=== PATIENT | male | born 1960 | race Caucasian/White ===

== ENCOUNTER 2016-07-07 10:16 | Inpatient (IN) | payer SELFPAY ==
[~2016-07-07] VITALS: Ht 177.8 cm; Wt 77.5 kg
[~2016-07-07 10:16] MED LIST: BUPR150T3 PO; KAPIDEX PO; SERT50 PO
[2016-07-07 10:18] VITALS: BP 104/61; PULSE 130; RESP 18; TEMP 98.9; O2SAT 88
--- NOTE | 2016-07-07 11:00 | PD ---
HPI Chief Complaint: Flank/Kidney Pain Time Seen by Provider: 11:00 Travel History International Travel<30 days: No Contact w/Intl Traveler<30days: No Traveled to known affect area: No History of Present Illness HPI 55-year-old male with history of hypertension presents to the ED for evaluation of one week history of bilateral flank pain, right greater than left. Worsening over the last 3 days, rated 10/10. No alleviating or exacerbating factors reported. Patient endorses nausea, vomiting, hematuria. He denies abdominal pain, dysuria. The patient had bilateral stents placed by Dr. Baron "around ." He saw his primary care provider this morning who referred him to the ED. PFSH Past Medical History Arthritis: No Asthma: No Autoimmune Disease: No Blood Disorders: No Anxiety: No Depression: No Heart Rhythm Problems: No Cancer: No Cardiovascular Problems: Yes High Cholesterol: No Chemotherapy: No Chest Pain: No Congestive Heart Failure: No COPD: No Cerebrovascular Accident: No Diabetes: No Diminished Hearing: No Diverticulitis: Yes Endocrine: No Gastrointestinal Disorders: Yes (DIVERTICULITIS) GERD: No Glaucoma: No Genitourinary: Yes (CURRENT COLOVESICLE FISTULA) Headaches: No Hepatitis: No Hiatal Hernia: No Hypertension: Yes Immune Disorder: No Kidney Stones: Yes Musculoskeletal: Yes Neurologic: No Psychiatric: Yes Reproductive: No Respiratory: Yes Myocardial Infarction: No Radiation Therapy: No Renal Failure: No Seizures: No Sickle Cell Disease: No Sleep Apnea: No Thyroid Disease: No Ulcer: No Past Surgical History Abdominal Surgery: Yes (HERNIA REPAIR, COLON RESECTION, ) AICD: No Cardiac Surgery: No Ear Surgery: No Endocrine Surgery: No Eye Surgery: No Genitourinary Surgery: Yes (PER PT "PART OF MY BLADDER WAS REMOVED") Gynecologic Surgery: No Oral Surgery: No Pacemaker: No Thoracic Surgery: No Other Surgery: Yes (SINUS SX) Social History Alcohol Use: Yes (2-3 drinks per day) Tobacco Use: Yes (1 2 ppd) Substance Use: No Allergies-Medications (Allergen,Severity, Reaction): Coded Allergies: Shellfish (Verified Allergy, Severe, HIVES, SWELLING, 07/07/16) Sulfa (Verified Allergy, Severe, HIVES, 07/07/16) Reported Meds & Prescriptions Reported Meds & Active Scripts Active Reported [Kapidex] 60 Mg PO DAILY Bupropion Hcl Xl (Bupropion HCl) 150 Mg Tab 150 Mg PO BID Zoloft (Sertraline HCl) 50 Mg Tab 150 Mg PO DAILY Review of Systems Except as stated in HPI: all other systems reviewed are Neg Physical Exam Narrative GENERAL: Well-nourished, well-developed white male in moderate distress. SKIN: Warm and diaphoretic HEAD: Normocephalic. EYES: No scleral icterus. No injection or drainage. NECK: Supple, trachea midline. No JVD or lymphadenopathy. CARDIOVASCULAR: Regular rate and rhythm without murmurs, gallops, or rubs. 2+ DP and radial pulses bilaterally. RESPIRATORY: Breath sounds clear and equal bilaterally. No accessory muscle use. GASTROINTESTINAL: Abdomen soft, non-tender, nondistended. Active bowel sounds. MUSCULOSKELETAL: No cyanosis, or edema. Patient is ambulatory, moves extremities spontaneously. BACK: Nontender without obvious deformity.++ Bilateral flank and CVA tenderness , right>>left. Data Data Last Documented VS Vital Signs Date Time Temp Pulse Resp B/P Pulse Ox O2 Delivery O2 Flow Rate FiO2 07/07/16 10:18 98.9 130 18 104/61 88 Orders Complete Blood Count With Diff (07/07/16 10:24) Comprehensive Metabolic Panel (07/07/16 10:24) Urinalysis - C+S If Indicated (07/07/16 10:24) Lipase (07/07/16 10:24) Ct Abd/Pel W/O Iv Contrast (07/07/16 11:10) Iv Access Insert/Monitor (07/07/16 11:10) Ondansetron Inj (Zofran Inj) (07/07/16 11:15) Sodium Chloride 0.9% Flush (Ns Flush) (07/07/16 11:15) Sodium Chlor 0.9% 1000 Ml Inj (Ns 1000 M (07/07/16 11:10) Lactic Acid (07/07/16 11:10) Morphine Inj (Morphine Inj) (07/07/16 11:15) Act Partial Throm Time (Ptt) (07/07/16 11:14) Prothrombin Time / Inr (Pt) (07/07/16 11:14) Labs Laboratory Tests Test 07/07/16 10:50 White Blood Count 13.5 TH/MM3 Red Blood Count 4.05 MIL/MM3 Hemoglobin 13.2 GM/DL Hematocrit 38.9 % Mean Corpuscular Volume 95.9 FL Mean Corpuscular Hemoglobin 32.7 PG Mean Corpuscular Hemoglobin 34.1 % Concent Red Cell Distribution Width 13.3 % Platelet Count 244 TH/MM3 Mean Platelet Volume 8.4 FL Neutrophils (%) (Auto) 93.7 % Lymphocytes (%) (Auto) 3.3 % Monocytes (%) (Auto) 2.4 % Eosinophils (%) (Auto) 0.2 % Basophils (%) (Auto) 0.4 % Neutrophils # (Auto) 12.6 TH/MM3 Lymphocytes # (Auto) 0.4 TH/MM3 Monocytes # (Auto) 0.3 TH/MM3 Eosinophils # (Auto) 0.0 TH/MM3 Basophils # (Auto) 0.1 TH/MM3 CBC Comment DIFF FINAL Differential Comment Sodium Level 136 MEQ/L Potassium Level 3.3 MEQ/L Chloride Level 101 MEQ/L Carbon Dioxide Level 24.2 MEQ/L Anion Gap 11 MEQ/L Blood Urea Nitrogen 20 MG/DL Creatinine 1.63 MG/DL Estimat Glomerular Filtration 44 ML/MIN Rate Random Glucose 117 MG/DL Calcium Level 8.8 MG/DL Total Bilirubin 0.5 MG/DL Aspartate Amino Transf 18 U/L (AST/SGOT) Alanine Aminotransferase 18 U/L (ALT/SGPT) Alkaline Phosphatase 71 U/L Total Protein 7.5 GM/DL Albumin 2.9 GM/DL Lipase 73 U/L [facility] Medical Decision Making Medical Screen Exam Complete: Yes Emergency Medical Condition: Yes Differential Diagnosis Nephroureterolithiasis versus hydronephrosis versus urosepsis versus JASON versus anemia versus other Narrative Course 55-year-old male with history of hypertension presents to the ED for evaluation of one week history of 10/10 bilateral flank pain, right greater than left. Worsening over the last 3 days. No alleviating or exacerbating factors reported. Patient endorses N/V, hematuria. Denies abdominal pain, dysuria. Bilateral stents inserted 05/03, by Dr. Baron. Saw PCP this morning, referred here. Vitals reviewed. Patient is tachycardic on presentation. Physical exam reveals a diaphoretic white male in moderate distress. Bilateral flank and CVA tenderness. Otherwise unremarkable. IV was established. Lab work, CT, morphine and Zofran ordered. The patient was transferred to the medical pod under the care of Dr. Quarles. Please see oncoming provider's notes for disposition. Sepsis Criteria SIRS Criteria (2 or more): Heart rate over 90, WBC > 77870, < 4000 or > 10% bands Sepsis Criteria (SIRS+source): Infect source susp/known Severe Sepsis (+one): Acute Oliguria/Renal Failure Sandy Bowers Jul 07, 2016 11:00
[2016-07-07] MEDS ORDERED: SODIUM CHLOR 0.9% 1000 ML INJ 1,000 ML IV ONE ×2 (11:10→12:45)
[2016-07-07 11:11] LABS: AUTOMATED NEUTROPHIL # 12.6 TH/MM3 (1.8-7.7); BASOPHIL # 0.1 TH/MM3 (0-0.2); BASOPHIL % 0.4 % (0.0-2.0); EOSINOPHIL % 0.2 % (0.0-4.0); HEMATOCRIT 38.9 % (39.0-51.0); HEMO FLAGS DIFF FINAL; LYMPH % 3.3 % (9.0-44.0); LYMPHOCYTE # 0.4 TH/MM3 (1.0-4.8); MEAN CELL VOLUME 95.9 FL (80.0-100.0); MEAN CORPUSCULAR HEMOGLOBIN 32.7 PG (27.0-34.0); MEAN CORPUSCULAR HGB CONC 34.1 % (32.0-36.0); MONO % 2.4 % (0.0-8.0); NEUT % 93.7 % (16.0-70.0); PLATELET COUNT 244 TH/MM3 (150-450); RED BLOOD COUNT 4.05 MIL/MM3 (4.50-5.90); RED CELL DISTRIBUTION WIDTH 13.3 % (11.6-17.2); WHITE BLOOD COUNT 13.5 TH/MM3 (4.0-11.0)
[2016-07-07] MEDS ORDERED: SODIUM CHLORIDE 0.9% FLUSH 5 ML FLUSH IVF PRN (11:15)
[2016-07-07] MEDS ORDERED: ONDANSETRON HCL 4 MG/2 ML VIAL IVP ONE (11:15)
[2016-07-07] MEDS ORDERED: MORPHINE SULFATE 4 MG/ML INJ IV PUSH ONE ×2 (11:15→13:45)
[2016-07-07 11:33] LABS: ALT (GPT) 18 U/L (12-78); ANION GAP 11 MEQ/L (5-15); AST (GOT) 18 U/L (15-37); BICARBONATE 24.2 MEQ/L (21.0-32.0); BLOOD UREA NITROGEN 20 MG/DL (7-18); CHLORIDE 101 MEQ/L (98-107); GLOMERULAR FILTRATION RATE 44 ML/MIN (>89); POTASSIUM 3.3 MEQ/L (3.5-5.1); SODIUM (NA) 136 MEQ/L (136-145)
[2016-07-07 11:35] LABS: ALKALINE PHOSPHATASE 71 U/L (45-117); TOTAL BILIRUBIN ADULT 0.5 MG/DL (0.2-1.0)
--- NOTE | 2016-07-07 12:02 | RADRPT ---
EXAM DATE/TIME: 07/07/2016 11:31 [facility] COMPARISON: No previous studies available for comparison. INDICATIONS: Bilateral flank pain with history of bilateral ureteral stents ORAL CONTRAST: No oral contrast ingested. RADIATION DOSE: 12.13 CTDIvol (mGy) MEDICAL HISTORY: Hypertension. Renal calculi. Diverticulitis. SURGICAL HISTORY: Colon resection. Hernia repair, ureteral stents ENCOUNTER: Initial ACUITY: 3 days PAIN SCALE: 5/10 LOCATION: Bilateral flank TECHNIQUE: Volumetric scanning of the abdomen and pelvis was performed. Using automated exposure control and ad justment of the mA and/or kV according to patient size, radiation dose was kept as low as reasonably achievable to obtain optimal diagnostic quality images. FINDINGS: Portion of the liver and spleen identified are free of focal defects. The pancreas is unremarkable. RIGHT KIDNEY: Multiple small stones are seen in the right kidney, largest measuring 5 mm. There is s stent along t he expected course of the right ureter. Stent is in good position. LEFT KIDNEY: Stent is seen in the left kidney. There are residual stones in the lower pole of the left kidney, la rgest measuring 1.2 cm. Stent is seen along expected course of left ureter. BLADDER: Unremarkable. 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 Moderate vascular calcifications are seen in the descending aorta without aneurysmal dilatation. CONCLUSION: 1. Renal stones and stents in good position as described above. Yosvany Fuentes MD FACR on July 07, 2016 at 11:45 Board Certified Radiologist. This report was verified electronically.
[2016-07-07 12:03] LABS: APTT (PATIENT) 36.8 SEC (24.3-30.1); INTERNATIONAL NORMALIZED RATIO 1.1 RATIO; PROTHROMBIN TIME - PATIENT 11.7 SEC (9.8-11.6)
[2016-07-07 12:35] VITALS: BP 93/61; PULSE 103; RESP 20; O2SAT 92
--- NOTE | 2016-07-07 12:50 | PD ---
Physical Exam Date Seen by Provider: Jul 07, 2016 Time Seen by Provider: 12:00 Narrative Patient was seen and evaluated in triage. Labs ordered including CBC, CMP, urinalysis, lactic acid, and CT of the abdomen. Patient has history of recurrent kidney stones with stents placed bilaterally. Patient is noted to be hypotensive and tachycardic with complaints of generalized malaise and body aches. Patient is also moderately hypoxic in the low 90s. Patient is a smoker. He states fever in the last couple days since Sunday with a high 102.5. Patient denies nausea, vomiting, or changes in his bowels or bladder. Patient is allergic to shellfish and sulfa. Data Data Last Documented VS Vital Signs Date Time Temp Pulse Resp B/P Pulse Ox O2 Delivery O2 Flow Rate FiO2 07/07/16 12:35 103 20 93/61 92 Nasal Cannula 2 07/07/16 10:18 98.9 Orders Complete Blood Count With Diff (07/07/16 10:24) Comprehensive Metabolic Panel (07/07/16 10:24) Urinalysis - C+S If Indicated (07/07/16 10:24) Lipase (07/07/16 10:24) Ct Abd/Pel W/O Iv Contrast (07/07/16 11:10) Iv Access Insert/Monitor (07/07/16 11:10) Ondansetron Inj (Zofran Inj) (07/07/16 11:15) Sodium Chloride 0.9% Flush (Ns Flush) (07/07/16 11:15) Sodium Chlor 0.9% 1000 Ml Inj (Ns 1000 M (07/07/16 11:10) Lactic Acid (07/07/16 11:10) Morphine Inj (Morphine Inj) (07/07/16 11:15) Act Partial Throm Time (Ptt) (07/07/16 11:14) Prothrombin Time / Inr (Pt) (07/07/16 11:14) Cath For Specimen (07/07/16 11:56) Blood Culture (07/07/16 12:38) Influenzae A/B Antigen (07/07/16 12:38) Sodium Chlor 0.9% 1000 Ml Inj (Ns 1000 M (07/07/16 12:45) Chest, Single Ap (07/07/16 ) Urine Culture (07/07/16 12:30) Piperacil-Tazo 4.5 Gm Premix (Zosyn 4.5 (07/07/16 13:10) Vancomycin Inj (Vancomycin Inj) (07/07/16 13:10) Labs Laboratory Tests Test 07/07/16 07/07/16 07/07/16 10:50 11:00 12:30 White Blood Count 13.5 TH/MM3 Red Blood Count 4.05 MIL/MM3 Hemoglobin 13.2 GM/DL Hematocrit 38.9 % Mean Corpuscular Volume 95.9 FL Mean Corpuscular Hemoglobin 32.7 PG Mean Corpuscular Hemoglobin 34.1 % Concent Red Cell Distribution Width 13.3 % Platelet Count 244 TH/MM3 Mean Platelet Volume 8.4 FL Neutrophils (%) (Auto) 93.7 % Lymphocytes (%) (Auto) 3.3 % Monocytes (%) (Auto) 2.4 % Eosinophils (%) (Auto) 0.2 % Basophils (%) (Auto) 0.4 % Neutrophils # (Auto) 12.6 TH/MM3 Lymphocytes # (Auto) 0.4 TH/MM3 Monocytes # (Auto) 0.3 TH/MM3 Eosinophils # (Auto) 0.0 TH/MM3 Basophils # (Auto) 0.1 TH/MM3 CBC Comment DIFF FINAL Differential Comment Sodium Level 136 MEQ/L Potassium Level 3.3 MEQ/L Chloride Level 101 MEQ/L Carbon Dioxide Level 24.2 MEQ/L Anion Gap 11 MEQ/L Blood Urea Nitrogen 20 MG/DL Creatinine 1.63 MG/DL Estimat Glomerular Filtration 44 ML/MIN Rate Random Glucose 117 MG/DL Calcium Level 8.8 MG/DL Total Bilirubin 0.5 MG/DL Aspartate Amino Transf 18 U/L (AST/SGOT) Alanine Aminotransferase 18 U/L (ALT/SGPT) Alkaline Phosphatase 71 U/L Total Protein 7.5 GM/DL Albumin 2.9 GM/DL Lipase 73 U/L Prothrombin Time 11.7 SEC Prothromb Time International 1.1 RATIO Ratio Activated Partial 36.8 SEC Thromboplast Time Lactic Acid Level 1.8 mmol/L Urine Color RED Urine Turbidity CLOUDY Urine pH 6.0 Urine Specific [place] 1.022 Urine Protein 300 mg/dL Urine Glucose (UA) TRACE mg/dL Urine Ketones NEG mg/dL Urine Occult Blood LARGE Urine Nitrite NEG Urine Bilirubin NEG Urine Urobilinogen 2.0 MG/DL Urine Leukocyte Esterase TRACE Urine RBC /hpf Urine WBC 25 /hpf Urine WBC Clumps OCC Urine Squamous Epithelial 2 /hpf Cells Urine Transitional Epithelial 1 /hpf Cells Urine Amorphous Sediment RARE Urine Bacteria MANY /hpf Urine Hyaline Casts 10 /lpf Urine Mucus MANY /lpf Microscopic Urinalysis Comment CULTURE INDICATED MDM Medical Record Reviewed: Yes Supervised Visit with ROSE MARIE: Yes Differential Diagnosis Urinary tract infection. Sepsis. Pneumonia. Influenza. Dehydration. Hypoxemia. Narrative Course Patient is evaluated by myself and Dr. Farrar. Labs show leukocytosis and probably urinary tract infection. CT scan shows both stents in good position without obvious acute hydronephrosis per radiologist. Additional labs ordered including influenza and chest x-ray, as well as blood cultures 2. BUN is 20, creatinine is 1.63. Lactic acid is 1.8. Potassium is low at 3.3. Call was placed to Dr. Baron, the Security Consultant, who placed the the urinary stents in April. Patient was discussed. Patient will be treated with Zosyn and vancomycin IV. Chest x-ray shows large upper lobe pneumonia. Duoneb and Solumedrol 125mg IV added. Sputum Culture. 1315 hrs. call was placed to the residence for admission. Diagnosis Primary Impression: Pneumonia Qualified Code: J18.1 - Pneumonia of left upper lobe due to infectious organism Additional Impressions: Urinary tract infection Qualified Code: T83.512A - Urinary tract infection associated with nephrostomy catheter, initial encounter Hypoxia Sepsis Qualified Code: A41.9 - Sepsis, due to unspecified organism Dehydration Admitting Information Admitting Physician Requests: Admit Condition: Stable Keshawn Kingston Jul 07, 2016 12:50
[2016-07-07 12:58] LABS: BACTERIA, URINE MANY /hpf; BLOOD, URINE LARGE (NEG); GLUCOSE,URINE TRACE mg/dL (NEG); HYALINE CAST, URINE 10 /lpf (RARE); KETONE, URINE NEG (NEG); MUCUS URINE MANY /lpf (OCC); NITRITE,URINE NEG (NEG); SQUAMOUS EPITHELIAL CELL URINE 2 /hpf (0-5); TRANSITIONAL EPI CELLS, URINE 1 /hpf
[2016-07-07 12:59] LABS: COMMENT (UR) CULTURE INDICATED; CULTURE IF INDICATED CULTURE INDICATED; URINE COLOR RED (YELLW/STRAW)
[2016-07-07] MEDS ORDERED: VANCOMYCIN INJ 1,000 MG in SODIUM CHLOR 0.9% 250 ML INJ 250 ML IV STA (13:10)
[2016-07-07] MEDS ORDERED: PIPERACIL-TAZO 4.5 GM PREMIX 100 ML IV STA (13:10)
--- NOTE | 2016-07-07 13:32 | RADRPT ---
EXAM DATE/TIME: 07/07/2016 12:49 [facility] COMPARISON: No previous studies available for comparison. INDICATIONS : Cough, nausea,vomiting, shortness of breath and body aches. MEDICAL HISTORY : None. SURGICAL HISTORY : None. ENCOUNTER: Initial ACUITY: 4 - 6 days PAIN SCORE: 10/10 LOCATION: Bilateral chest FINDINGS: Extensive air space disease is identified throughout the left upper lobe. Right lung is clear. Heart and mediastinal structures. CONCLUSION: Extensive airspace disease throughout the left upper lobe characteristic of pneumonitis. Vlad Arteaga MD on July 07, 2016 at 13:30 Board Certified Radiologist. This report was verified electronically.
--- NOTE | 2016-07-07 13:43 | PD ---
Data Data Last Documented VS Vital Signs Date Time Temp Pulse Resp B/P Pulse Ox O2 Delivery O2 Flow Rate FiO2 07/07/16 12:35 103 20 93/61 92 Nasal Cannula 2 07/07/16 10:18 98.9 Orders Complete Blood Count With Diff (07/07/16 10:24) Comprehensive Metabolic Panel (07/07/16 10:24) Urinalysis - C+S If Indicated (07/07/16 10:24) Lipase (07/07/16 10:24) Ct Abd/Pel W/O Iv Contrast (07/07/16 11:10) Iv Access Insert/Monitor (07/07/16 11:10) Ondansetron Inj (Zofran Inj) (07/07/16 11:15) Sodium Chloride 0.9% Flush (Ns Flush) (07/07/16 11:15) Sodium Chlor 0.9% 1000 Ml Inj (Ns 1000 M (07/07/16 11:10) Lactic Acid (07/07/16 11:10) Morphine Inj (Morphine Inj) (07/07/16 11:15) Act Partial Throm Time (Ptt) (07/07/16 11:14) Prothrombin Time / Inr (Pt) (07/07/16 11:14) Cath For Specimen (07/07/16 11:56) Blood Culture (07/07/16 12:38) Influenzae A/B Antigen (07/07/16 12:38) Sodium Chlor 0.9% 1000 Ml Inj (Ns 1000 M (07/07/16 12:45) Chest, Single Ap (07/07/16 ) Urine Culture (07/07/16 12:30) Piperacil-Tazo 4.5 Gm Premix (Zosyn 4.5 (07/07/16 13:10) Vancomycin Inj (Vancomycin Inj) (07/07/16 13:10) Methylprednisolone So Succ Inj (Solumedr (07/07/16 13:45) Albuterol-Ipratropium Neb (Duoneb Neb) (07/07/16 13:45) S[employer] Culture And Stain (07/07/16 13:35) Admit Order (Ed Use Only) (07/07/16 13:40) Labs Laboratory Tests Test 07/07/16 07/07/16 07/07/16 10:50 11:00 12:30 White Blood Count 13.5 TH/MM3 Red Blood Count 4.05 MIL/MM3 Hemoglobin 13.2 GM/DL Hematocrit 38.9 % Mean Corpuscular Volume 95.9 FL Mean Corpuscular Hemoglobin 32.7 PG Mean Corpuscular Hemoglobin 34.1 % Concent Red Cell Distribution Width 13.3 % Platelet Count 244 TH/MM3 Mean Platelet Volume 8.4 FL Neutrophils (%) (Auto) 93.7 % Lymphocytes (%) (Auto) 3.3 % Monocytes (%) (Auto) 2.4 % Eosinophils (%) (Auto) 0.2 % Basophils (%) (Auto) 0.4 % Neutrophils # (Auto) 12.6 TH/MM3 Lymphocytes # (Auto) 0.4 TH/MM3 Monocytes # (Auto) 0.3 TH/MM3 Eosinophils # (Auto) 0.0 TH/MM3 Basophils # (Auto) 0.1 TH/MM3 CBC Comment DIFF FINAL Differential Comment Sodium Level 136 MEQ/L Potassium Level 3.3 MEQ/L Chloride Level 101 MEQ/L Carbon Dioxide Level 24.2 MEQ/L Anion Gap 11 MEQ/L Blood Urea Nitrogen 20 MG/DL Creatinine 1.63 MG/DL Estimat Glomerular Filtration 44 ML/MIN Rate Random Glucose 117 MG/DL Calcium Level 8.8 MG/DL Total Bilirubin 0.5 MG/DL Aspartate Amino Transf 18 U/L (AST/SGOT) Alanine Aminotransferase 18 U/L (ALT/SGPT) Alkaline Phosphatase 71 U/L Total Protein 7.5 GM/DL Albumin 2.9 GM/DL Lipase 73 U/L Prothrombin Time 11.7 SEC Prothromb Time International 1.1 RATIO Ratio Activated Partial 36.8 SEC Thromboplast Time Lactic Acid Level 1.8 mmol/L Urine Color RED Urine Turbidity CLOUDY Urine pH 6.0 Urine Specific [place] 1.022 Urine Protein 300 mg/dL Urine Glucose (UA) TRACE mg/dL Urine Ketones NEG mg/dL Urine Occult Blood LARGE Urine Nitrite NEG Urine Bilirubin NEG Urine Urobilinogen 2.0 MG/DL Urine Leukocyte Esterase TRACE Urine RBC /hpf Urine WBC 25 /hpf Urine WBC Clumps OCC Urine Squamous Epithelial 2 /hpf Cells Urine Transitional Epithelial 1 /hpf Cells Urine Amorphous Sediment RARE Urine Bacteria MANY /hpf Urine Hyaline Casts 10 /lpf Urine Mucus MANY /lpf Microscopic Urinalysis Comment CULTURE INDICATED MDM Supervised Visit with ROSE MARIE: Yes Narrative Course I, Dr. Quarles, have reviewed the advance practice practioner's documentation and am in agreement, met with the patient face to face, made the diagnosis, and the medical decision making was done by me. *My assessment and Findings: 55-year-old male with history of ureterolithiasis with indwelling bilateral stents here with bilateral flank pain generalized weakness, malaise and subjective fevers and chills for the last 3 days. Patient is ill-appearing on exam, tachycardic and relatively hypotensive, but borderline O2 sats to the 90s. Breath sounds are decreased left to right. He has minimal flank tenderness to palpation bilaterally. Differential includes ureterolithiasis, obstructive uropathy, UTI, pneumonia, influenza, viral syndrome, dehydration, electrolyte abnormality, sepsis. Patient's laboratory workup notable for leukocytosis and questionable UTI. Patient has significant left-sided pneumonia. He was covered broadly with vancomycin, Zosyn. Will be admitted for further management of his sepsis. Diagnosis Primary Impression: Sepsis Qualified Code: A41.9 - Sepsis, due to unspecified organism Additional Impressions: Pneumonia Qualified Code: J18.1 - Pneumonia of left upper lobe due to infectious organism Urinary tract infection Qualified Code: T83.512A - Urinary tract infection associated with nephrostomy catheter, initial encounter Hypoxia Dehydration Admitting Information Admitting Physician Requests: Admit Condition: Stable Mariam Quarles MD Jul 07, 2016 13:43
[2016-07-07] MEDS ORDERED: methylPREDNISolone SOD SUCC 125 MG/2 ML VIAL IV PUSH ONE (13:45)
[2016-07-07] MEDS ORDERED: RESP: ALBUTEROL 2.5 MG/IPRATROPIUM 0.5 MG NEB (SCH) NEB ONE (13:45)
[2016-07-07 13:49] VITALS: BP 117/79; PULSE 106; RESP 18; O2SAT 93
[2016-07-07] MEDS ORDERED: HYDROmorphone HCL PF 1 MG/ML VIAL IV PUSH ONE (14:45)
--- NOTE | 2016-07-07 14:49 | HHI.HP ---
[facility] Service Family Medicine Primary Care Physician Abigail Chau MD Admission Diagnosis sepsis, left pneumonia Diagnoses: International Travel<30 Days: No Contact w/Intl Traveler<30days: No Known Affected Area: No History of Present Illness 55 year old male with h/o HTN, renal calculi, s/p bilateral ureteral stent placements presents to the ED due to bilateral flank pain for the past three days. Daughter states over the past few days patient has been having a lot of abdominal pain. Fever yesterday of 102 F taken orally, severe body aches since Sunday, intermittent chills with diaphoresis also since Sunday. Patient is complaining of very severe left sided flank pain. Patient states since having his ureteral stents placed this past April he has had issues urinary, he states he has severe dribbling, occasional gross hematuria, and dysuria. His daughter reports gross hematuria this morning. He states he has had a loss of appetite since Sunday. States one episode of vomiting, nonbloody nonbilious yesterday, no vomiting today. States he has had a cough beginning this past Sunday, cough has mostly been dry, denies any shortness of breath in the past 4 days. 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 Denies any recent travel. (Matias Lewis MD R1) Review of Systems Constitutional: COMPLAINS OF: Fever, Chills Eyes: DENIES: Blurred vision, Double Vision Respiratory: COMPLAINS OF: Cough, DENIES: Shortness of breath Cardiovascular: DENIES: Chest pain, Palpitations Gastrointestinal: COMPLAINS OF: Nausea, Vomiting, DENIES: Abdominal pain Genitourinary: COMPLAINS OF: Hematuria, Dysuria (Matias Lewis MD R1) Past Family Social History Past Medical History HTN Renal calculi Diverticulitis Ureterolithiasis Chronic sinusitis H/o MRSA in nares Past Surgical History Bilateral ureteral stent placement Colovesicular fistula requiring a diverting colostomy, partial colectomy and eventual reanastomosis in 2007 Partial bladder removal Hernia repair Multiple sinus operations Reported Medications Reported Meds & Active Scripts Active Reported [Kapidex] 60 Mg PO DAILY Bupropion Hcl Xl (Bupropion HCl) 150 Mg Tab 150 Mg PO BID Zoloft (Sertraline HCl) 50 Mg Tab 150 Mg PO DAILY (Matias Lewis MD R1) Allergies: Coded Allergies: Shellfish (Verified Allergy, Severe, HIVES, SWELLING, 07/07/16) Sulfa (Verified Allergy, Severe, HIVES, 07/07/16) Family History Father: unknown Mother: arthritis, alive, no cancer, 82yo Social History Tobacco: 2 PPD x 41 years Etoh: 2-3 drinks nightly, vodka and 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, has been drinking since 18yo Illicit drugs: denies Lives alone in [place] 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 Cool and dry. HEAD: Atraumatic. Normocephalic. No temporal or scalp tenderness. EYES: Pupils equal round and reactive. Extraocular motions intact. No scleral icterus. No injection or drainage. ENT: Nose without bleeding, purulent drainage or septal hematoma. Throat without erythema, tonsillar hypertrophy or exudate. Uvula midline. Airway patent. NECK: Trachea midline. No JVD or lymphadenopathy. Supple, nontender, no meningeal signs. CARDIOVASCULAR: Regular rate and rhythm without murmurs, gallops, or rubs. RESPIRATORY: Clear to auscultation. Breath sounds equal bilaterally. No wheezes , rales, or rhonchi. GASTROINTESTINAL: Abdomen soft, non-tender, nondistended. No hepato-splenomegaly , or palpable masses. No guarding. MUSCULOSKELETAL: Extremities without clubbing, cyanosis, or edema. No joint tenderness, effusion, or edema noted. No calf tenderness. Negative Homans sign bilaterally. NEUROLOGICAL: Awake and alert. Cranial nerves II through XII intact. Motor and sensory grossly within normal limits. Normal speech. Laboratory Laboratory Tests Test 07/07/16 07/07/16 07/07/16 10:50 11:00 12:30 White Blood Count 13.5 Red Blood Count 4.05 Hemoglobin 13.2 Hematocrit 38.9 Mean Corpuscular Volume 95.9 Mean Corpuscular Hemoglobin 32.7 Mean Corpuscular Hemoglobin 34.1 Concent Red Cell Distribution Width 13.3 Platelet Count 244 Mean Platelet Volume 8.4 Neutrophils (%) (Auto) 93.7 Lymphocytes (%) (Auto) 3.3 Monocytes (%) (Auto) 2.4 Eosinophils (%) (Auto) 0.2 Basophils (%) (Auto) 0.4 Neutrophils # (Auto) 12.6 Lymphocytes # (Auto) 0.4 Monocytes # (Auto) 0.3 Eosinophils # (Auto) 0.0 Basophils # (Auto) 0.1 CBC Comment DIFF FINAL Differential Comment Sodium Level 136 Potassium Level 3.3 Chloride Level 101 Carbon Dioxide Level 24.2 Anion Gap 11 Blood Urea Nitrogen 20 Creatinine 1.63 Estimat Glomerular Filtration 44 Rate Random Glucose 117 Calcium Level 8.8 Total Bilirubin 0.5 Aspartate Amino Transf 18 (AST/SGOT) Alanine Aminotransferase 18 (ALT/SGPT) Alkaline Phosphatase 71 Total Protein 7.5 Albumin 2.9 Lipase 73 Prothrombin Time 11.7 Prothromb Time International 1.1 Ratio Activated Partial 36.8 Thromboplast Time Lactic Acid Level 1.8 Urine Color RED Urine Turbidity CLOUDY Urine pH 6.0 Urine Specific [place] 1.022 Urine Protein 300 Urine Glucose (UA) TRACE Urine Ketones NEG Urine Occult Blood LARGE Urine Nitrite NEG Urine Bilirubin NEG Urine Urobilinogen 2.0 Urine Leukocyte Esterase TRACE Urine RBC Urine WBC 25 Urine WBC Clumps OCC Urine Squamous Epithelial 2 Cells Urine Transitional Epithelial 1 Cells Urine Amorphous Sediment RARE Urine Bacteria MANY Urine Hyaline Casts 10 Urine Mucus MANY Microscopic Urinalysis Comment CULTURE INDICATED Date/Time Procedure Status Source Growth 07/07/16 13:15 Influenza Types A,B Antigen (NIVIA) - Final Complete Nasal Washing NEGATIVE FOR FLU A AND B ANTIGEN.... 07/07/16 13:15 Aerobic Blood Culture Received Blood Peripheral Pending 07/07/16 13:15 Anaerobic Blood Culture Received Blood Peripheral Pending 07/07/16 12:30 Urine Culture Received Urine Clean Catch Pending (Matias Lewis MD R1) Result Diagram: 07/07/16 1050 07/07/16 1050 Imaging Last 48 hours Impressions Chest X-Ray 07/07/16 0000 Signed Impressions: Service Date/Time: Thursday, July 07, 2016 12:49 - CONCLUSION: Extensive airspace disease throughout the left upper lobe characteristic of pneumonitis. Vlad Arteaga MD (Matias Lewis MD R1) Assessment and Plan Assessment and Plan 55 year old male with h/o HTN, renal calculi, s/p bilateral ureteral stent placements presents to the ED due to bilateral flank pain for the past three days, reported episode of fever, chills, body aches, and cough. He will be admitted and managed for the following: Code Status Full code Discussed Condition With dw Dr. Adrianna Diallo (Matias Lewis MD R1) Problem List: (1) Pneumonia Status: Acute Plan: Afebrile in ED Lungs have diminished air movement throughout, not able to appreciate any rales or rhonchi CXR showing extensive airspace disease throughout the left upper lobe Chest CT obtained showing consolidative changes in the left upper lobe, suspicious adenopathy in the mediastinum Sputum mycobacterial culture pending Will need to obtain a bronchoscopy for further evaluation Will continue antibiotics with Vancomycin and Zosyn (2) Urinary tract infection Status: Acute Plan: UA with 25 WBCs and many bacteria, culture pending Antibiotics as above The patients pain at this time does not seem concerning for pyelonephritis as he reports his pain to be left lateral abdomen and left upper quadrant and he denies any new or changing urinary symptoms Will continue to monitor CBC and vitals (3) Alcohol abuse Status: Acute Plan: No si/sxs concerning for withdrawal at this time CIWA protocol MVs (4) Nutrition, metabolism, and development symptoms Status: Acute Plan: Fluids: NS at 125 mL/hr Electrolytes: K+ 3.3, repleted orally Nutrition: Regular diet DVT PPX: SCDs GI PPX: Protonix Pain control: [place], Morphine prn breakthrough pain (Matias Lewis MD R1) Physician Certification Order for Inpatient Services The services are ordered in accordance with Medicare regulations or non- Medicare payer requirements, as applicable. In the case of services not specified as inpatient-only, they are appropriately provided as inpatient services in accordance with the 2-midnight benchmark. days is the estimated time the patient will need to remain in the hospital, assuming treatment plan goals are met and no additional complications. ( Matias Lewis MD R1) 2 Midnight Certification Type: Admission for Inpatient Services Estimated LOS (days): 3 Post-Hospital Plan: Home (Armando Diallo MD) Problem Qualifiers (1) Pneumonia: Qualified Code: J18.1 - Pneumonia of left upper lobe due to infectious organism (2) Urinary tract infection: Qualified Code: T83.512A - Urinary tract infection associated with nephrostomy catheter, initial encounter Matias Lewis MD R1 Jul 07, 2016 14:49 Armando Diallo MD Jul 07, 2016 21:45
[2016-07-07] MEDS ORDERED: DEXI60CA PO (15:03)
[2016-07-07] MEDS ORDERED: AMLO10TA2 PO (15:03)
[2016-07-07] MEDS ORDERED: ATOR1TAB18 PO (15:03)
[2016-07-07] MEDS ORDERED: VENTAER INH (15:03)
[2016-07-07] MEDS ORDERED: HYDR-3288 PO (15:03)
[2016-07-07] MEDS ORDERED: LORazepam 2 MG TAB PO PRN (16:00)
[2016-07-07] MEDS ORDERED: RESP: ALBUTEROL 2.5 MG/IPRATROPIUM 0.5 MG NEB (PRN) NEB (16:00)
[2016-07-07] MEDS ORDERED: FLUMAZENIL 0.5 MG/5 ML VIAL IV PUSH PRN (16:00)
[2016-07-07] MEDS ORDERED: NALOXONE HCL 0.4 MG/ML AMP IV PRN ×2 (16:00)
[2016-07-07] MEDS ORDERED: LORazepam 2 MG/ML VIAL IV PUSH PRN ×4 (16:00)
[2016-07-07] MEDS ORDERED: NICOTINE 21 MG/24 HR PATCH TD SCH (16:15)
--- NOTE | 2016-07-07 16:26 | RADRPT ---
EXAM DATE/TIME: 07/07/2016 16:09 [facility] COMPARISON: CT ABDOMEN & PELVIS W/O CONTRAST, July 07, 2016, 11:31. CHEST SINGLE AP, July 07, 2016, 12:49. INDICATIONS : Shortness of breath; evaluate for pulmonary disease. RADIATION DOSE: 6.92 CTDIvol (mGy) MEDICAL HISTORY : Cardiovascular disease. Hypertension. SURGICAL HISTORY : None. ENCOUNTER: Initial ACUITY: 3 days PAIN SCALE: 0/10 LOCATION: Chest TECHNIQUE: Volumetric scanning of the chest was performed. Using automated exposure control and adjustment of the mA and/or kV according to patient size, radiation dose was kept as low as reasonab ly achievable to obtain optimal diagnostic quality images. FINDINGS: Consolidative changes are present in the left upper lobe with air bronchograms. The ri ght lung is clear. There is no axillary adenopathy. There is minimal nonspecific mediastinal adenop athy. The amount of adenopathy makes this suspicious for a neoplastic process, in spite of its appea brock. Moderate coronary artery calcifications are noted. A small subcutaneous nodule is seen over the anterior chest wall measuring 4 cm. This is well circum scribed and nonspecific. Portion of the liver and spleen identified are free of focal defects. Adrenal glands are unremarkabl e. CONCLUSION: 1. Consolidative changes in the left upper lobe. There is suspicious adenopathy in the mediastinum. This may be more than an inflammatory process. 2. Bronchoscopy may be the easiest way to make a diagnosis of a neoplastic process. Yosvany Fuentes MD FACR on July 07, 2016 at 16:17 Board Certified Radiologist. This report was verified electronically.
[2016-07-07] MEDS: MULTIVITAMINS/MINERALS THERAPEUTIC TAB PO SCH (16:40)
[2016-07-07] MEDS: LORazepam 1 MG TAB PO PRN (16:41)
[2016-07-07] MEDS: THIAMINE HCL 100 MG TAB PO SCH (16:41)
[2016-07-07] MEDS ORDERED: RESP: ALBUTEROL 2.5 MG/3 ML NEB (PRN) NEB (17:00)
[2016-07-07] MEDS ORDERED: POTASSIUM CHLORIDE 10 MEQ CONTROLLED RELEASE TAB PO ONE (17:30)
[2016-07-07] MEDS: SODIUM CHLOR 0.9% 1000 ML INJ 1,000 ML IV SCH (17:46)
[2016-07-07] MEDS: ACETAMINOPHEN/HYDROcodone 325 MG/10 MG TAB PO PRN (17:47)
[2016-07-07] MEDS: PANTOPRAZOLE SOD 40 MG DELAYED RELEASE TAB PO SCH (17:47)
[2016-07-07] MEDS: ONDANSETRON HCL 4 MG/2 ML VIAL IV PRN (17:48)
[2016-07-07] MEDS: NICOTINE 21 MG/24 HR PATCH TD SCH (18:00)
[2016-07-07] MEDS: MORPHINE SULFATE 4 MG/ML INJ IV PRN (19:04)
[2016-07-07 20:11] VITALS: BP 115/76; PULSE 97; RESP 16; O2SAT 98
--- NOTE | 2016-07-07 20:52 | HHI.FPPN ---
Subjective Remarks Attending note: Complex 55-year-old gentleman admitted with bilateral flank pain, recent history of a temperature 102, suprapubic pain, history in the past of recurrent urolithiasis. Patient related that in April he had bilateral ureteral stents placed by Dr. Zhang, his urologist for management of bilateral urolithiasis. Eventual plans are for lithotripsy if necessary. Patient has had intermittent flank pain since stent placement and 3 days ago began having gross hematuria with body aches. Believed he did have a fever, no appetite. Consulted with his primary physician Dr. Abigail Chau and was advised to come to the emergency room. Hence being in the emergency room additional studies have been notable for bilateral kidney stones multiple on the right, the largest being 0.5 cm, on the left ID 1.2 cm stone with smaller stones as well. CT of the chest for an abnormal chest x-ray shows a infiltrate/ consolidation with left adenopathy. Patient has had a cough bringing up yellowish sputum recently. Please refer to resident history and physical for complete discussion of the past medical history camera primary history, social history and review of systems. It is notable that in 2007 the patient had a colovesicular fistula which required a diverting colostomy, partial colectomy and eventual reanastomosis. Objective Vitals Vital Signs Date Time Temp Pulse Resp B/P Pulse Ox O2 Delivery O2 Flow Rate FiO2 07/07/16 20:11 97 16 115/76 98 Room Air 07/07/16 18:53 10 07/07/16 13:49 106 18 117/79 93 Nasal Cannula 2 07/07/16 12:35 103 20 93/61 92 Nasal Cannula 2 07/07/16 10:18 98.9 130 18 104/61 88 Result Diagram: 07/07/16 1050 07/07/16 1050 Objective Remarks Vital signs noted. Currently afebrile. Gen. appearance: Pleasant speaking middle-aged gentleman who makes good eye contact, normal mood. HEENT: Oropharynx no localized lesions. Lungs: Diminished sounds are appreciated bilaterally, fine faustino are evident on the left lung upper and lower. Cardiac: S1-S2, increased heart rate, irregularity noted in the rhythm. No S3 or murmurs. Abdomen: Appearance rotund, active bowel sounds, no tenderness is evident on general palpation, the patient does report flank pain bilaterally discomfort suprapubically. Allergies: Feet are warm and dry, intact pedal pulses. Refer to the resident's physical exam for complete discussion of details. A/P Assessment and Plan Clinical assessment: Patient seen and examined. Case reviewed and discussed with resident team. Agree with plan of care as discussed with me and documented in the resident note. Patient has a long-time history of urolithiasis with complications intermittent along the way. Most recently stents bilaterally were placed in April 2016 and the patient is followed by his urologist, Dr. Jn Zhang concern clinically regarding urinary tract infection associated with the stones. Abnormal lung studies with history that would be consistent with pneumonia, note was made of the radiologist's concern regarding the adenopathy. Really creatinine, GERD, leukocytosis noted. Remote history of MRSA in the sinuses Armando Diallo MD Jul 07, 2016 20:52
[2016-07-07] MEDS ORDERED: predniSONE 20 MG TAB PO SCH (21:00)
[2016-07-07] MEDS: REMOVE OLD NICODERM (NICOTINE) PATCH TD SCH (21:00)
[2016-07-07 21:30] VITALS: BP 114/69; PULSE 119; RESP 16; TEMP 101; O2SAT 92
[2016-07-07 21:45] VITALS: PULSE 120
--- NOTE | 2016-07-07 21:52 | HHI.FPPN ---
Subjective Remarks Attending note: Please refer to the note dictated 20:52 hours. This is a partial duplicate. Objective Vitals Vital Signs Date Time Temp Pulse Resp B/P Pulse Ox O2 Delivery O2 Flow Rate FiO2 07/07/16 20:11 97 16 115/76 98 Room Air 07/07/16 18:53 10 07/07/16 13:49 106 18 117/79 93 Nasal Cannula 2 07/07/16 12:35 103 20 93/61 92 Nasal Cannula 2 07/07/16 10:18 98.9 130 18 104/61 88 Result Diagram: 07/07/16 1050 07/07/16 1050 Objective Remarks Vital signs noted. Currently afebrile. Gen. appearance: Pleasant speaking middle-aged gentleman who makes good eye contact, normal mood. HEENT: Oropharynx no localized lesions. Lungs: Diminished sounds are appreciated bilaterally, fine rales are evident on the left lung upper and lower. Cardiac: S1-S2, increased heart rate, irregularity noted in the rhythm. No S3 or murmurs. Abdomen: Appearance rotund, active bowel sounds, no tenderness is evident on general palpation, the patient does report flank pain bilaterally discomfort suprapubically. Allergies: Feet are warm and dry, intact pedal pulses. Refer to the resident's physical exam for complete discussion of details. A/P Assessment and Plan Clinical assessment: Patient seen and examined. Case reviewed and discussed with resident team. Agree with plan of care as discussed with me and documented in the resident note. Patient has a long-time history of urolithiasis with complications intermittent along the way. Most recently stents bilaterally were placed in April 2016 and the patient is followed by his urologist, Dr. Jn Zhang concern clinically regarding urinary tract infection associated with the stones. Abnormal lung studies with history that would be consistent with pneumonia, note was made of the radiologist's concern regarding the adenopathy. Really creatinine, GERD, leukocytosis noted. Remote history of MRSA in the sinuses Armando Diallo MD Jul 07, 2016 21:52
[2016-07-07] MEDS: SODIUM CHLORIDE 0.9% FLUSH 5 ML FLUSH FLUSH SCH (22:03)
[2016-07-07] MEDS: PIPERACIL-TAZO 4.5 GM PREMIX 100 ML IV SCH (22:03)
[2016-07-07] MEDS: ATORVASTATIN 80 MG TAB PO SCH (22:03)
[2016-07-08] VITALS (14 sets, daily range): BP systolic 93–146; BP diastolic 57–74; PULSE 108–119; RESP 16–24; TEMP 97.3–102.2; O2SAT 87–98
[2016-07-08] MEDS: ACETAMINOPHEN/HYDROcodone 325 MG/10 MG TAB PO PRN ×2 (00:06→05:03)
[2016-07-08] MEDS: SODIUM CHLOR 0.9% 1000 ML INJ 1,000 ML IV SCH (00:12)
[2016-07-08] MEDS: ONDANSETRON HCL 4 MG/2 ML VIAL IV PRN (02:02)
[2016-07-08] MEDS: LORazepam 1 MG TAB PO PRN (02:02)
[2016-07-08] MEDS: MORPHINE SULFATE 4 MG/ML INJ IV PRN ×3 (02:03→12:30)
[2016-07-08] MEDS: PIPERACIL-TAZO 4.5 GM PREMIX 100 ML IV SCH ×3 (05:04→20:44)
[2016-07-08 07:21] LABS: AUTOMATED NEUTROPHIL # 13.5 TH/MM3 (1.8-7.7); BASOPHIL # 0.1 TH/MM3 (0-0.2); BASOPHIL % 0.4 % (0.0-2.0); HEMATOCRIT 37.1 % (39.0-51.0); HEMO FLAGS DIFF FINAL; LYMPHOCYTE # 0.3 TH/MM3 (1.0-4.8); MEAN CELL VOLUME 97.6 FL (80.0-100.0); MEAN CORPUSCULAR HEMOGLOBIN 32.9 PG (27.0-34.0); MEAN CORPUSCULAR HGB CONC 33.7 % (32.0-36.0); MONO % 3.8 % (0.0-8.0); NEUT % 93.8 % (16.0-70.0); PLATELET COUNT 261 TH/MM3 (150-450); RED CELL DISTRIBUTION WIDTH 13.8 % (11.6-17.2); WHITE BLOOD COUNT 14.4 TH/MM3 (4.0-11.0)
[2016-07-08 08:15] LABS: ALKALINE PHOSPHATASE 64 U/L (45-117); ALT (GPT) 22 U/L (12-78); ANION GAP 8 MEQ/L (5-15); AST (GOT) 24 U/L (15-37); BLOOD UREA NITROGEN 23 MG/DL (7-18); CHLORIDE 102 MEQ/L (98-107); GLOMERULAR FILTRATION RATE 57 ML/MIN (>89); POTASSIUM 3.7 MEQ/L (3.5-5.1); SODIUM (NA) 134 MEQ/L (136-145); TOTAL BILIRUBIN ADULT 0.3 MG/DL (0.2-1.0)
[2016-07-08] MEDS: PANTOPRAZOLE SOD 40 MG DELAYED RELEASE TAB PO SCH (08:23)
[2016-07-08] MEDS: THIAMINE HCL 100 MG TAB PO SCH (08:23)
[2016-07-08] MEDS: MULTIVITAMINS/MINERALS THERAPEUTIC TAB PO SCH (08:23)
[2016-07-08] MEDS: NICOTINE 21 MG/24 HR PATCH TD SCH (08:24)
[2016-07-08] MEDS: SODIUM CHLORIDE 0.9% FLUSH 5 ML FLUSH FLUSH SCH ×2 (08:26→20:44)
[2016-07-08] MEDS ORDERED: PNEUMOCOCCAL POLYVALENT INJ 25 MCG/0.5 ML SYR IM ONE (09:00)
--- NOTE | 2016-07-08 10:42 | HHI.FPPN ---
Subjective Remarks Primary team at bedside this morning ~10:15 when it was reported by nursing staff that the patient was starting to develop severe chills, shakes, and was developing shortness of breath. Staff reported that earlier this morning that the patient was doing well, eating breakfast and walking OOB. DignaT was called for the patient due to respiratory distress. Vitals at this time were noted to be BP 140/70, HR 154, visibly tachypneic, O2 sats at 78% and temperature of 102.8F. Patient was placed on a 100% nonrebreather mask and O2 sats were noted to be at 93%. Dr. Heck, critical care, was notified and came to bedside. Patient was noted to be disoriented to time. Blood gas was obtained showing pH 7.28 CO2 42 HCO3 19. Patient was then transferred to the [facility] under critical care medicine. (Matias Lewis MD R1) Objective Vitals Vital Signs Date Time Temp Pulse Resp B/P Pulse Ox O2 Delivery O2 Flow Rate FiO2 07/08/16 08:00 97.3 118 16 103/59 87 07/08/16 04:00 98.0 114 20 146/72 92 07/08/16 00:00 99.0 119 18 138/63 92 07/07/16 22:45 Nasal Cannula 2.00 07/07/16 21:45 120 07/07/16 21:30 101.0 119 16 114/69 92 07/07/16 20:11 97 16 115/76 98 Room Air 07/07/16 18:53 10 07/07/16 13:49 106 18 117/79 93 Nasal Cannula 2 07/07/16 12:35 103 20 93/61 92 Nasal Cannula 2 I/O 07/07/16 07/07/16 07/07/16 07/08/16 07/08/16 07/08/16 07:00 15:00 23:00 07:00 15:00 23:00 Intake Total 200 ml 600 ml Balance 200 ml 600 ml Intake Oral 200 ml 600 ml # Voids 1 5 (Matias Lewis MD R1) Result Diagram: 07/08/16 0640 07/08/16 0640 Imaging Last 48 hours Impressions Abdomen/Pelvis CT 07/07/16 1110 Signed Impressions: Service Date/Time: Thursday, July 07, 2016 11:31 - CONCLUSION: 1. Renal stones and stents in good position as described above. Yosvany Fuentes MD FACR Chest X-Ray 07/07/16 0000 Signed Impressions: Service Date/Time: Thursday, July 07, 2016 12:49 - CONCLUSION: Extensive airspace disease throughout the left upper lobe characteristic of pneumonitis. Vlad Arteaga MD Chest CT 07/07/16 0000 Signed Impressions: Service Date/Time: Thursday, July 07, 2016 16:09 - CONCLUSION: 1. Consolidative changes in the left upper lobe. There is suspicious adenopathy in the mediastinum. This may be more than an inflammatory process. 2. Bronchoscopy may be the easiest way to make a diagnosis of a neoplastic process. Yosvany Fuentes MD FACR Objective Remarks GENERAL: Visible distress due to difficulty breathing and severe chills SKIN: Cool and dry. HEAD: Atraumatic. Normocephalic. EYES: EOMI. No injection or drainage. NECK: Trachea midline. Airway patent. Supple, nontender, no meningeal signs. CARDIOVASCULAR: Tachycardic rate, regular rhythm, without murmur. RESPIRATORY: Prominent basilar crackles and crackles throughout left lung field and expiratory wheezes throughout. Increased work of breathing. GASTROINTESTINAL: Abdomen soft, non-tender, nondistended. MUSCULOSKELETAL: Extremities without edema. No calf tenderness. NEUROLOGICAL: Awake and alert. Speech is intact but somewhat mumbled. Cranial nerves grossly intact. (Matias Lewis MD R1) A/P Assessment and Plan 55 year old male with h/o HTN, renal calculi, s/p bilateral ureteral stent placements presented due to bilateral flank pain more significant on the left x 3 days, one reported episode of fever, chills, body aches, and primarily dry cough. Admitted and managed for the following: (Matias Lewis MD R1) Assessment and Plan Attending note: Patient was seen with the resident team as his acute clinical worsening was evolving. Concerns regarding sepsis and fulminant pneumonia. Daughter arrived and was counseled as well as questions answered from the daughter. Patient seen and examined. Case reviewed and discussed with resident team. Agree with plan of care as discussed with me and documented in the resident note. Intensivists consulted, transferred to the [facility]. (Armando Diallo MD) Problem List: (1) Pneumonia Status: Acute Plan: - Febrile up to 102.8 this morning during [facility] - Leukocytosis worsened to 14.4 today - Initial CXR in ED showing extensive airspace disease throughout the left upper lobe - Chest CT from 07/07 showing consolidative changes in the left upper lobe, suspicious adenopathy in the mediastinum - Repeat CXR today 07/08 showing severe diffuse left lung airspace consolidation , increased from yesterday's exam. New mild consolidation versus atelectasis in the right mid lung zone. - Patient was initially placed on 100% oxygen via non-rebreather and transferred to the [facility] under critical care - Patient intubated and on mechanical ventilation given respiratory acidosis and concern for further decompensation - Critical care medicine consulted, treating for necrotizing pneumonia - Infectious disease consulted - Continue Zosyn, antipseudomonal dose - Continue Vancomycin - Started Azithromycin - Urine legionella and pneumococcal antigens - Sputum mycobacterial culture pending (2) Urinary tract infection Status: Acute Plan: UA with 25 WBCs and many bacteria, culture pending Antibiotics as above Urology consulted given patient with significant history of bilateral renal calculi and bilateral ureteral stent placements could be acting as a nidus for infections, possibly contributing to sepsis (3) Sepsis Status: Acute Plan: Meets sepsis criteria Antibiotics and plan as above (4) Nutrition, metabolism, and development symptoms Status: Acute Plan: Fluids: Discontinued Electrolytes: Na 134, otherwise WNLs Nutrition: NPO, on mech vent DVT PPX: SCDs GI PPX: Protonix sdw Luigi Rodriguez, and Adrianna (Matias Lewis MD R1) Problem Qualifiers (1) Pneumonia: Qualified Code: J18.1 - Pneumonia of left upper lobe due to infectious organism (2) Urinary tract infection: Qualified Code: T83.512A - Urinary tract infection associated with nephrostomy catheter, initial encounter Matias Lewis MD R1 Jul 08, 2016 10:42 Armando Diallo MD Jul 08, 2016 12:16
[2016-07-08] MEDS ORDERED: PROPOFOL 500 MG/50 ML INJ 50 ML ONE (10:47)
[2016-07-08] MEDS ORDERED: ETOMIDATE 20 MG/10 ML VIAL ONE (10:47)
[2016-07-08 10:52] LABS: BLOOD GAS BASE EXCESS -6.5 mmol/L (-2-2); BLOOD GAS CARBOXYHEMOGLOBIN 0.6 % (0-4); BLOOD GAS HCO3 19 mmol/L (22-26); BLOOD GAS METHEMOGLOBIN 0.9 % (0-2); BLOOD GAS O2 HGB SATURATION 86 % (90-100); BLOOD GAS OXYGEN CONTENT 17.1 Vol % (12.0-20.0); BLOOD GAS PCO2 42 mmHg (38-42); BLOOD GAS PO2 61 mmHg (61-120); BLOOD GAS TOTAL HGB 14.2 G/DL (12.0-16.0); TEMP CORR TO 98.6
[2016-07-08 10:53] LABS: CRITICAL VALUE YES; OXYGEN DEVICE NONREBREATHER
[2016-07-08 10:54] LABS: FIO2 100 %; LITER FLOW 15 L/M
[2016-07-08 10:55] LABS: DRAW SITE RT RADIAL; NUMBER OF ARTERIAL PUNCTURES 1; STAT YES; ULNAR PULSE PRESENT
[2016-07-08] MEDS ORDERED: PROPOFOL 1000 MG/100 ML INJ 100 ML ONE (11:09)
[2016-07-08] MEDS: PANTOPRAZOLE SODIUM 40 MG VIAL IV PUSH SCH (11:15)
[2016-07-08] MEDS ORDERED: DEXTROSE 50% IN WATER 50 ML VIAL(D50) IV PUSH PRN (11:15)
[2016-07-08] MEDS ORDERED: INSULIN NovoLIN REGULAR SUPPLEMENTAL SCALE SQ SCH (11:15)
[2016-07-08] MEDS ORDERED: BUMETANIDE INJ 1 MG/4 ML VIAL IV PUSH ONE (11:15)
[2016-07-08] MEDS ORDERED: GLUCAGON 1 MG/ML VIAL OTHER PRN (11:15)
[2016-07-08 11:53] LABS: BLOOD GAS BASE EXCESS -3.9 mmol/L (-2-2); BLOOD GAS CARBOXYHEMOGLOBIN 0.8 % (0-4); BLOOD GAS HCO3 23 mmol/L (22-26); BLOOD GAS METHEMOGLOBIN 1.5 % (0-2); BLOOD GAS O2 HGB SATURATION 94 % (90-100); BLOOD GAS PCO2 56 mmHg (38-42); BLOOD GAS PO2 105 mmHg (61-120); BLOOD GAS TOTAL HGB 12.8 G/DL (12.0-16.0); TEMP CORR TO 98.6
[2016-07-08 11:54] LABS: CRITICAL VALUE YES; DRAW SITE RT RADIAL; FIO2 100 %; NUMBER OF ARTERIAL PUNCTURES 1; OXYGEN DEVICE VENTILATOR; STAT NO; ULNAR PULSE PRESENT
--- NOTE | 2016-07-08 11:58 | PD.ID.CON ---
History of Present Illness Service Infectious disease Consult Requested By Dr. Choi Reason for Consult Evaluation and management of sepsis, healthcare associated pneumonia possible UTI in a patient with renal stents. Primary Care Physician Abigail Chau MD Diagnoses: History of Present Illness Mr. Ambrocio is a 55-year-old male with past medical history significant for renal calculi status post bilateral ureteral stent placements as well as hypertension who presented to the emergency department to bilateral flank pain for the past 3 days. Daughter states over the last few days patient was having a lot of abdominal pain as well as fever up to 102 associated with severe body aches. He also had intermittent chills with diaphoresis prior to admission. Patient reportedly was complaining of very severe left-sided flank pain. Reportedly his ureteral stents were placed in April 2016 as he had bilateral flank pain associated with dribbling as well as gross hematuria and dysuria. His daughter reports just prior to admission he had gross hematuria as well. Patient had loss of appetite, one episode of vomiting, nonbloody nonbilious prior to admission. Patient also reported cough is mostly dry but denied any shortness of breath prior to admission. Patient had a CT chest abdomen pelvis on admission. CT abdomen pelvis was reported as renal stones some of them fairly large in size but stents in good position. A CT chest showed on admission left upper lobe pneumonia repeat chest x-ray showed multilobar pneumonia. Patient met criteria for severe sepsis on admission due to elevated white count , tachycardia and source being pneumonia as well as urinary tract infection as well as acute renal failure. Patient was admitted under resident service and was on Zosyn IV and Vanco IV. Patient was also found to have elevated Cr and was placed on 125 cc/hr fluids. This a.m. while primary team was at the bedside nursing staff reported that patient was having severe chills, shakes and developing shortness of breath. [facility] was called for the patient due to respiratory distress. His vitals at this time of this change in clinical condition was blood pressure 1 40 x 70, heart rate 154, visibly tachypneic and using accessory muscles for respiration, O2 sats at 78% and a temperature of 102.8 Fahrenheit. Patient was placed on 100% nonrebreather and critical care was consulted patient's blood gas at that time was 7.28 pH, CO2 42, bicarbonate of 19. Remediation Technician evaluated the patient and repeat chest x-ray showed bilateral infiltrates and due to ongoing respiratory distress and altered mental status patient was emergently intubated in the ICU. Infectious disease is consulted for evaluation and management of sepsis, healthcare associated pneumonia, possible UTI in a patient with renal stents. At the time of my evaluation patient is in the ICU currently not on any pressors now is intubated and on sedation. Urine output is good. Other vitals are beginning to stabilize. Review of Systems ROS Limitations: Intubated Past Family Social History Allergies: Coded Allergies: Shellfish (Verified Allergy, Severe, HIVES, SWELLING, 07/07/16) Sulfa (Verified Allergy, Severe, HIVES, 07/07/16) Past Medical History HTN Renal calculi Diverticulitis Ureterolithiasis Chronic sinusitis H/o MRSA in nares Past Surgical History Bilateral ureteral stent placement Colovesicular fistula requiring a diverting colostomy, partial colectomy and eventual reanastomosis in 2007 Partial bladder removal Hernia repair Multiple sinus operations Reported Medications Reported Meds & Active Scripts Active Reported Amlodipine (Amlodipine Besylate) 10 Mg Tab 10 Mg PO DAILY Dexilant (Dexlansoprazole) 60 Mg Cap 60 Mg PO DAILY Atorvastatin (Atorvastatin Calcium) 80 Mg Tab 80 Mg PO HS [place] (Hydrocodone-Acetaminophen) 7.5-325 mg Tab 1-2 Tab PO Q6H PRN Ventolin Hfa 18 GM Inh (Albuterol Sulfate) 90 Mcg/Act Aer 1-2 Puff INH Q4-6H PRN Active Ordered Medications Current Medications Medications (Trade) Dose Ordered Sig/Veronica Route Start Time Stop Time Status Last Admin (NS Flush) 2 ml UNSCH PRN IVF 07/07/16 11:15 (Tylenol) 650 mg Q4H PRN PO 07/07/16 17:00 (Zofran Inj) 4 mg Q6H PRN IV 07/07/16 16:00 07/08/16 02:02 (NS Flush) 2 ml UNSCH PRN FLUSH 07/07/16 16:00 (NS Flush) 2 ml BID FLUSH 07/07/16 21:00 07/08/16 08:26 (Narcan Inj) 0.4 mg UNSCH PRN IV 07/07/16 16:00 (Vitamin B1) 100 mg DAILY PO 07/07/16 17:00 07/08/16 08:23 (Theragran M Tab) 1 tab DAILY PO 07/07/16 17:00 07/12/16 16:59 07/08/16 08:23 (Protonix) 40 mg DAILY PO 07/07/16 17:30 07/08/16 08:23 ([place] 5-325 Mg) 1 tab Q4H PRN PO 07/07/16 17:00 ([place] 10-325 Mg) 1 tab Q4H PRN PO 07/07/16 17:00 07/08/16 05:03 Morphine Sulfate 4 mg 4 mg Q4HR PRN IV 07/07/16 16:00 07/08/16 06:57 Vancomycin HCl 1000 mg/Sodium Chloride 250 ml @ 250 mls/hr Q24H IV 07/08/16 15:00 (Zosyn 4.5 Gm Premix) 100 ml @ 200 mls/hr Q8H IV 07/07/16 22:00 07/08/16 05:04 (Lipitor) 80 mg HS PO 07/07/16 21:00 07/07/16 22:03 (Habitrol 21 Mg Patch.24 Hr) 1 patch DAILY TD 07/07/16 18:00 07/08/16 08:24 Miscellaneous Information 1 1 HS TD 07/07/16 21:00 07/07/16 21:00 Azithromycin 500 mg/Sodium Chloride 250 ml @ 250 mls/hr Q24H IV 07/08/16 12:00 (Diprivan 1000 Mg/100ml Inj) 100 ml @ 0 mls/hr TITRATE IV 07/08/16 11:15 (Protonix Inj) 40 mg DAILY IV PUSH 07/08/16 11:15 (D50w (Vial) Inj) 25 ml UNSCH PRN IV PUSH 07/08/16 11:15 (Glucagon Inj) 1 mg UNSCH PRN OTHER 07/08/16 11:15 (NovoLIN R SUPPLEMENTAL SCALE) 1 Q6HR SQ 07/08/16 12:00 Family History Father: unknown Mother: arthritis, alive, no cancer, 82yo Social History Tobacco: 2 PPD x 41 years Etoh: 2-3 drinks nightly, vodka and 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, has been drinking since 18yo Illicit drugs: denies. 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 Denies any recent travel. 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 Physical Exam Vital Signs Vital Signs Date Time Temp Pulse Resp B/P Pulse Ox O2 Delivery O2 Flow Rate FiO2 07/08/16 11:00 93 100 07/08/16 10:41 92 15.00 100 07/08/16 10:25 92 Non-Rebreather 100 07/08/16 08:00 110 07/08/16 08:00 96 Nasal Cannula 2.00 07/08/16 08:00 97.3 118 16 103/59 87 07/08/16 04:00 98.0 114 20 146/72 92 07/08/16 00:00 99.0 119 18 138/63 92 07/07/16 22:45 Nasal Cannula 2.00 07/07/16 21:45 120 07/07/16 21:30 101.0 119 16 114/69 92 07/07/16 20:11 97 16 115/76 98 Room Air 07/07/16 18:53 10 07/07/16 13:49 106 18 117/79 93 Nasal Cannula 2 07/07/16 12:35 103 20 93/61 92 Nasal Cannula 2 Physical Exam GENERAL: Obese, well-developed patient, in no apparent distress. SKIN: No rashes. Cool and dry. HEAD: Atraumatic. Normocephalic. No temporal or scalp tenderness. EYES: Pupils equal round and reactive. Extraocular motions intact. No scleral icterus. No injection or drainage. ENT: Intubated. NECK: Trachea midline. Supple, nontender, no meningeal signs. CARDIOVASCULAR: Heart sounds audible. No murmur appreciated. RESPIRATORY: Breath sounds diminished bilaterally occasional palpitations. GASTROINTESTINAL: Abdomen soft, non-tender, nondistended. Obese. MUSCULOSKELETAL: Extremities without clubbing, cyanosis, or edema. No joint tenderness, effusion, or edema noted. No calf tenderness. Negative Homans sign bilaterally. NEUROLOGICAL: Sedated. Psych could not be assessed IV line sites with no evidence of infection. Laboratory Laboratory Tests Test 07/07/16 07/07/16 07/08/16 07/08/16 12:30 21:45 06:40 10:13 Urine Color RED Urine Turbidity CLOUDY Urine pH 6.0 Urine Specific [place] 1.022 Urine Protein 300 Urine Glucose (UA) TRACE Urine Ketones NEG Urine Occult Blood LARGE Urine Nitrite NEG Urine Bilirubin NEG Urine Urobilinogen 2.0 Urine Leukocyte Esterase TRACE Urine RBC Urine WBC 25 Urine WBC Clumps OCC Urine Squamous Epithelial 2 Cells Urine Transitional Epithelial 1 Cells Urine Amorphous Sediment RARE Urine Bacteria MANY Urine Hyaline Casts 10 Urine Mucus MANY Microscopic Urinalysis Comment CULTURE INDICATED Lactic Acid Level 1.4 1.0 White Blood Count 14.4 Red Blood Count 3.80 Hemoglobin 12.5 Hematocrit 37.1 Mean Corpuscular Volume 97.6 Mean Corpuscular Hemoglobin 32.9 Mean Corpuscular Hemoglobin 33.7 Concent Red Cell Distribution Width 13.8 Platelet Count 261 Mean Platelet Volume 8.2 Neutrophils (%) (Auto) 93.8 Lymphocytes (%) (Auto) 2.0 Monocytes (%) (Auto) 3.8 Eosinophils (%) (Auto) 0.0 Basophils (%) (Auto) 0.4 Neutrophils # (Auto) 13.5 Lymphocytes # (Auto) 0.3 Monocytes # (Auto) 0.5 Eosinophils # (Auto) 0.0 Basophils # (Auto) 0.1 CBC Comment DIFF FINAL Differential Comment Sodium Level 134 Potassium Level 3.7 Chloride Level 102 Carbon Dioxide Level 24.0 Anion Gap 8 Blood Urea Nitrogen 23 Creatinine 1.30 Estimat Glomerular Filtration 57 Rate Random Glucose 123 Calcium Level 7.9 Total Bilirubin 0.3 Aspartate Amino Transf 24 (AST/SGOT) Alanine Aminotransferase 22 (ALT/SGPT) Alkaline Phosphatase 64 Total Protein 7.2 Albumin 2.5 Blood Gas Puncture Site RT RADIAL Blood Gas Patient Temperature 98.6 Blood Gas HCO3 19 Blood Gas Base Excess -6.5 Blood Gas Oxygen Saturation 86 Arterial Blood pH 7.28 Arterial Blood Partial 42 Pressure CO2 Arterial Blood Partial 61 Pressure O2 Arterial Blood Oxygen Content 17.1 Arterial Blood 0.6 Carboxyhemoglobin Arterial Blood Methemoglobin 0.9 Blood Gas Hemoglobin 14.2 Oxygen Delivery Device NONREBREATHER Blood Gas Liter Flow 15 Blood Gas Inspired Oxygen 100 Test 07/08/16 11:45 Blood Gas Puncture Site RT RADIAL Blood Gas Patient Temperature 98.6 Blood Gas HCO3 23 Blood Gas Base Excess -3.9 Blood Gas Oxygen Saturation 94 Arterial Blood pH 7.23 Arterial Blood Partial 56 Pressure CO2 Arterial Blood Partial 105 Pressure O2 Arterial Blood Oxygen Content 17.0 Arterial Blood 0.8 Carboxyhemoglobin Arterial Blood Methemoglobin 1.5 Blood Gas Hemoglobin 12.8 Oxygen Delivery Device VENTILATOR Blood Gas Ventilator Setting A/C 550/16/10PEEP Blood Gas Inspired Oxygen 100 Date/Time Procedure Status Source Growth 07/07/16 14:35 Acid Fast Stain Received Sputum Expectorated Sputum Pending 07/07/16 14:35 Mycobacterial Culture Received Sputum Expectorated Sputum Pending 07/07/16 13:15 Influenza Types A,B Antigen (NIVIA) - Final Complete Nasal Washing NEGATIVE FOR FLU A AND B ANTIGEN.... 07/07/16 13:15 Aerobic Blood Culture - Preliminary Resulted Blood Peripheral NO GROWTH IN 1 DAY 07/07/16 13:15 Anaerobic Blood Culture - Preliminary Resulted Blood Peripheral NO GROWTH IN 1 DAY 07/07/16 12:30 Urine Culture Received Urine Clean Catch Pending Result Diagram: 07/08/16 0640 07/08/16 0640 Imaging Last Impressions Chest X-Ray 07/08/16 0000 Signed Impressions: Service Date/Time: Friday, July 08, 2016 11:08 - CONCLUSION: 1. Endotracheal tube is present with tip measuring 5.7 cm from the farooq. 2. Severe diffuse left lung airspace consolidation, increased from yesterday's exam. There is also new mild consolidation versus atelectasis in the right midlung zone. Patel Palmer MD Abdomen/Pelvis CT 07/07/16 1110 Signed Impressions: Service Date/Time: Thursday, July 07, 2016 11:31 - CONCLUSION: 1. Renal stones and stents in good position as described above. Yosvany Fuentes MD FACR Chest CT 07/07/16 0000 Signed Impressions: Service Date/Time: Thursday, July 07, 2016 16:09 - CONCLUSION: 1. Consolidative changes in the left upper lobe. There is suspicious adenopathy in the mediastinum. This may be more than an inflammatory process. 2. Bronchoscopy may be the easiest way to make a diagnosis of a neoplastic process. Yosvany Fuentes MD FACR Assessment and Plan Assessment and Plan Severe sepsis present on admission(criteria explained in history of present illness) Complicated urinary tract infection in a patient with bilateral ureteral stents. Pneumonia present on admission (community acquired, atypical, possible component of healthcare associated pneumonia) Acute renal failure present on admission likely sepsis related possible component of prerenal: Appears to be improving urine output. Acute metabolic encephalopathy: Possible component of aspiration, likely secondary to sepsis Recommendations: Follow cruz cultures Sputum cultures If respiratory status continues to decline consider CT PE protocol. Continue Zosyn IV(recommended a pseudomonal dose) Continue vancomycin IV Will put her pharmacy consult target trough 15-20. Discussed with Dr. Choi to add azithromycin IV since pneumonia was present on admission as above, component of atypical pneumonia Follow urine legionella antigen Follow pneumococcal urinary antigen Follow cultures Follow clinically Case discussed with Dr. Choi as well as RN. No family at the bedside. Brenda Walsh MD Jul 08, 2016 11:58
[2016-07-08] MEDS: INSULIN NovoLIN REGULAR SUPPLEMENTAL SCALE SQ SCH ×2 (12:00→18:00)
--- NOTE | 2016-07-08 12:05 | RADRPT ---
EXAM DATE/TIME: 07/08/2016 11:08 [facility] COMPARISON: CHEST SINGLE AP, July 07, 2016, 12:49. INDICATIONS : Post intubation. MEDICAL HISTORY : Sepsis. SURGICAL HISTORY : None. ENCOUNTER: Initial ACUITY: 2 days PAIN SCORE: Non-responsive. LOCATION: Bilateral chest FINDINGS: Portable AP views of the chest demonstrate a normal-sized cardiac silhouette. The endotracheal tube t ip is at the clavicular head level measuring 5.7 cm from the farooq. Lungs are underinflated. There i s severe diffuse left lung airspace consolidation, increased from the prior study. There is new atele ctasis or consolidation in the right midlung zone. No pneumothorax is visualized. CONCLUSION: 1. Endotracheal tube is present with tip measuring 5.7 cm from the farooq. 2. Severe diffuse left lung airspace consolidation, increased from yesterday's exam. There is also ne w mild consolidation versus atelectasis in the right midlung zone. Patel Palmer MD on July 08, 2016 at 12:03 Board Certified Radiologist. This report was verified electronically.
[2016-07-08] MEDS ORDERED: Vancomycin Consult Pharmacy 1 EA OTHER SCH (12:30)
[2016-07-08] MEDS: AZITHROMYCIN INJ 500 MG in SODIUM CHLOR 0.9% 250 ML INJ 250 ML IV SCH (12:34)
[2016-07-08] MEDS: VANCOMYCIN INJ 1,500 MG in SODIUM CHLORID 0.9% 500 ML INJ 500 ML IV SCH (14:00)
[2016-07-08] MEDS: RESP: ALBUTEROL 2.5 MG/IPRATROPIUM 0.5 MG NEB (SCH) NEB ×2 (15:01→19:56)
--- NOTE | 2016-07-08 17:24 | MB ---
cc: HERBIE GRAHAM M.D. DATE OF CONSULTATION: 07/08/2016 DATE OF : 1960 HISTORY OF PRESENT ILLNESS The patient is a 55-year-old male with a past medical history of hypertension, renal calculi, status post bilateral ureteral stent placement in April, . He presented to [facility] ED with a three-day history of bilateral flank pain associated with fever and severe body aches. Just prior to admission, the patient had gross hematuria per his daughter and had decreased p.o. intake. The patient denied any shortness of breath or chest pain. Due to his abdominal pain, a CT scan of the abdomen and pelvis was obtained which showed renal stones and stent in place. An initial chest x-ray in the ED showed extensive airspace disease throughout the left upper lobe characteristic of pneumonia. He subsequently underwent a CT scan of the chest which showed consolidative changes in the left upper lobe along with suspicious adenopathy in the mediastinum. His initial creatinine level was 1.6 and the patient was placed on broad-spectrum antibiotics in addition to IV fluids. His laboratory data from today showed improvement of his renal function with a creatinine of 1.30 and lactic acid level measured at 1.0. [facility] was called for respiratory distress and the patient was a nonrebreather mask and transferred to [facility]. When seen in the ICU he was tachypneic, tachycardic and had a temperature of 103. The patient was subsequently intubated by myself and placed on full mechanical ventilation. A chest x-ray post intubation showed severe diffuse left lung airspace consolidation and a new mild consolation versus atelectasis in the right midlung zone. His nasal washing on arrival negative for influenza, and blood cultures and urine culture from yesterday showed no growth to date. The patient had a temperature of 102.8 earlier today. PAST MEDICAL HISTORY Significant for - 1. Hypertension. 2. Renal calculi. 3. Diverticulitis. 4. History of chronic sinusitis. PAST SURGICAL HISTORY 1. Previous bilateral ureteral stent placement in April. 2. Previous colovesical fistula requiring diverting colostomy, partial colectomy and reanastomosis in 2007. 3. Previous hernia repair. 4. Previous multiple sinus surgeries reported. ALLERGIES SHELLFISH AND SULFA. MEDICATIONS Current medications include - 1. Vancomycin. 2. Zosyn. 3. Protonix. 4. Bronchodilators. FAMILY HISTORY Noncontributory. SOCIAL HISTORY The patient is an active drinker where he drinks [id number] drinks nightly. In addition the patient is an active smoker where he smokes two packs per day for about 40+ years. REVIEW OF SYSTEMS As per HPI. The rest of the review of systems unobtainable as the patient is intubated. PHYSICAL EXAMINATION GENERAL: A [id number] male intubated for acute hypoxemic respiratory failure. VITAL SIGNS: T-max of 102.8, pulse of 114-118, respiratory rate 23, blood pressure 103/59 prior to intubation. VENT SETTING: Assist control rate of 20 currently, tidal volume 250, PEEP of 10, 100% FIO2. HEENT: Atraumatic, normocephalic. Pupils equal, round, reactive to light and accommodation. Extraocular muscles intact. Conjunctivae pink. Nonicteric sclerae. Oral mucosa within normal. NECK: Supple. No JVD, adenopathy or thyromegaly. Trachea midline. CARDIOVASCULAR: Tachycardic. Normal S1, S2. No murmurs, rubs or gallops noted. PULMONARY: Bilateral equal entry with diffuse coarse breath sounds and rhonchi left greater than right. A few scattered wheezes as well. ABDOMEN: Soft, nontender, no distension. Positive bowel sounds. EXTREMITIES: No cyanosis, clubbing or edema. NEUROLOGIC: Intubated and sedated. LABORATORY DATA Sodium 134, potassium 3.7, chloride 102, CO2 24, BUN 23, creatinine 1.3, glucose 123, lactic acid 1. WBC 14.4, hemoglobin 12.5, hematocrit 37, platelet count 261. INR 1.1, PT 11.7, PTT 36.8. RADIOGRAPHIC STUDIES Chest x-ray post intubation showed ET tube above the farooq, severe diffuse left lung airspace consolidation and new mild consolation versus atelectasis in the right midlung. CT abdomen and pelvis showed renal stones and stents in good position. Chest CT showed consolidative changes in the left upper lobe and suspicious adenopathy in the mediastinum. IMPRESSION 1. Acute hypoxemic respiratory failure requiring intubation. 2. Sepsis. 3. Diffuse bilateral pulmonary infiltrates, likely a combination of infectious process and fluid overload. 4. Likely community-acquired pneumonia. 5. Acute renal failure on presentation, improved. 6. Acute metabolic encephalopathy. 7. Urinary tract infection. 8. History of renal calculi with bilateral ureteral stent placement in April. 9. History of hypertension. 10. Leukocytosis. 11. Mild hyponatremia. RECOMMENDATIONS 1. Continue with Diprivan infusion for sedation and daily sedation vacation. 2. Monitor neuro status closely. 3. Continue with vent support and maintain sats above 92%. 4. Bronchodilators in the form of DuoNeb q.6 and we will initiate an ICU vent bundle. 5. We will increase respiratory rate to 20 and repeat ABG in one hour. 6. Monitor heart rate and blood pressure closely and maintain MAP greater than 65 mmHg. Lactic acid level measured at 1.0. 7. We will obtain 2D echo to evaluate LV function and to rule out regional wall motion abnormalities. 8. Diurese with Lasix. Also diurese with Bumex 1 mg IV x1. 9. Monitor renal function, Is and Os and electrolyte replacement as needed. We will insert a Khan. 10. Continue with antibiotics in the form of vancomycin and Zosyn. In addition we will add azithromycin to cover atypical pneumonia. Followup on blood and urine cultures which were performed on admission. We will check a sputum culture with Gram stain, and we will obtain strep pneumonia and Legionella urinary antigen. 11. We will consult Infectious Diseases service. Case discussed with Dr. Faith Walsh from [place]. 12. Sliding scale insulin with Accu-Chek q.6 hours for glycemic control if needed. 13. Continue with thiamine 100 mg daily. 14. Monitor CBC. 15. Consult Urology service for hematuria, flank pain and history of renal calculi with ureteral stent placement. 16. GI prophylaxis with Protonix 40 mg daily and DVT prophylaxis with SCDs and heparin subcu. Further recommendations will be based on hospital course. Critical care time 60 minutes excluding procedures. MD AFSHAN Gregg/FRANNY /12:41 PM /4:35 PM
--- NOTE | 2016-07-08 19:22 | MB ---
cc: THEODORE JAIMES M.D. DATE OF CONSULTATION: 07/08/2016. REASON FOR CONSULTATION: Lung mass rule out underlying malignancy. HISTORY OF PRESENT ILLNESS: Mr. Ambrocio is a 55-year-old male admitted with bilateral flank pain. He has bilateral ureteral stents in place. He did have temperature elevation up to 102 degrees Fahrenheit. He was initially admitted to the medical floor. CT scan of the chest revealed a right upper lung infiltrate and/or mass with mediastinal adenopathy at which time I was asked to see the patient for evaluation of same. The patient has however developed worsening fever, shaking and chills, respiratory distress. He was transferred to the intensive care unit where he was intubated, mechanically ventilated and presently sedated on ventilatory support. PAST MEDICAL HISTORY: His past medical history is that of: 1. Renal calculi status post stent placement. 2. Hypertension. 3. Diverticular disease. 4. Chronic sinusitis. 5. History of nasal MRSA. 6. History of colon fistula surgically repaired in the past. 7. Had a partial cystectomy. 8. Hernia repair. 9. Multiple sinus surgeries. MEDICATIONS: Medications at home include 1. Bupropion. 2. Sertraline. ALLERGIES: 1. SHELLFISH. 2. SULFA DRUGS. FAMILY HISTORY: The family history is noncontributory. SOCIAL HISTORY: Smoked two packs of cigarettes a day and smokes up until this time. Drinks alcohol socially. No TB or industrial exposure. REVIEW OF SYSTEMS: A twelve-point review of systems is as per the history of present illness and past history, otherwise negative. PHYSICAL EXAMINATION: GENERAL: On exam, the patient is sedated on ventilatory support. VITAL SIGNS: Temperature 98 degrees Fahrenheit, pulse 110, blood pressure 103/60, oxygen saturation 96% on two liters oxygen by nasal cannula. HEAD, EYES, EARS, NOSE, THROAT: Unremarkable. Eyes without icterus. NECK: Without adenopathy, thyroid enlargement, central trachea. CHEST: A few scattered rhonchi bilaterally. CARDIAC: PMI not appreciated. S1 and S2 audible. No murmur, no rub. ABDOMEN: Lax. Bowel sounds audible. EXTREMITIES: No cyanosis, clubbing or edema. LABORATORY DATA: Arterial blood gas: pH 7.23, pCO2 56, pO2 105, 100% inspired oxygen fraction. Sodium 134, potassium 3.0, BUN 1.3. INR 1.1. White count 14,000, hemoglobin 12.5, platelet visit 261,000. IMAGING STUDIES: CT scan of the chest done July 07 with evidence of consolidation left upper lung lobe and mediastinal adenopathy is noted. IMPRESSION: 1. Acute respiratory failure, presently on the ventilator. 2. Pneumonia, question underlying mass lesion. 3. Probable COPD. 4. Tobacco abuse. 5. Status post bilateral stent placement. PLAN: The patient is presently on ventilatory support. His fever is dropping. Infectious disease is following as well as urology. He will require bronchoscopic examination, and this will be undertaken when stabilized and while on the ventilator it may be more simple to proceed with bronchoscopy at this point. This has been discussed fully with his daughter who is at the bedside. I do thank you for asking me to partake in Mr. Ambrocio's care. Theodore Jaimes MD WWW/LATASHA /1:56 PM /7:10 PM
[2016-07-08] MEDS: ACETAMINOPHEN 325 MG TAB PO PRN (20:44)
[2016-07-08] MEDS: ATORVASTATIN 80 MG TAB PO SCH (20:44)
[2016-07-08] MEDS: MIDAZOLAM 100 MG/NS 100 ML DRIP Premix IV SCH (20:44)
[2016-07-08] MEDS: REMOVE OLD NICODERM (NICOTINE) PATCH TD SCH (21:00)
[2016-07-09] VITALS (19 sets, daily range): BP systolic 72–138; BP diastolic 39–72; PULSE 90–110; RESP 24–25; TEMP 98.5–103; O2SAT 89–99
[2016-07-09] MEDS: RESP: ALBUTEROL 2.5 MG/IPRATROPIUM 0.5 MG NEB (SCH) NEB ×4 (03:25→21:44)
[2016-07-09] MEDS: PIPERACIL-TAZO 4.5 GM PREMIX 100 ML IV SCH ×3 (05:39→20:42)
[2016-07-09 05:48] LABS: AUTOMATED NEUTROPHIL # 13.2 TH/MM3 (1.8-7.7); BASOPHIL % 0.2 % (0.0-2.0); EOSINOPHIL % 0.1 % (0.0-4.0); HEMATOCRIT 37.7 % (39.0-51.0); HEMO FLAGS DIFF FINAL; LYMPH % 8.1 % (9.0-44.0); LYMPHOCYTE # 1.3 TH/MM3 (1.0-4.8); MEAN CELL VOLUME 98.8 FL (80.0-100.0); MEAN CORPUSCULAR HEMOGLOBIN 32.9 PG (27.0-34.0); MEAN CORPUSCULAR HGB CONC 33.3 % (32.0-36.0); MONO % 7.3 % (0.0-8.0); NEUT % 84.3 % (16.0-70.0); PLATELET COUNT 247 TH/MM3 (150-450); RED BLOOD COUNT 3.82 MIL/MM3 (4.50-5.90); RED CELL DISTRIBUTION WIDTH 14.4 % (11.6-17.2); WHITE BLOOD COUNT 15.7 TH/MM3 (4.0-11.0)
[2016-07-09 05:49] LABS: BICARBONATE 21.5 MEQ/L (21.0-32.0); MAGNESIUM 2.1 MG/DL (1.5-2.5)
[2016-07-09 05:50] LABS: POTASSIUM 4.2 MEQ/L (3.5-5.1)
[2016-07-09] MEDS: INSULIN NovoLIN REGULAR SUPPLEMENTAL SCALE SQ SCH ×4 (06:00→17:47)
[2016-07-09] MEDS: methylPREDNISolone SOD SUCC 40 MG/1 ML VIAL IV PUSH SCH ×3 (08:00→20:42)
--- NOTE | 2016-07-09 08:05 | HHI.CCPN ---
Subjective Remarks/Hospital Course The patient is a 55-year-old male with a past medical history of hypertension, renal calculi, status post bilateral ureteral stent placement in April, . He presented to [facility] ED with a three-day history of bilateral flank pain associated with fever and severe body aches. Just prior to admission, the patient had gross hematuria per his daughter and had decreased p.o. intake. The patient denied any shortness of breath or chest pain. Due to his abdominal pain, a CT scan of the abdomen and pelvis was obtained which showed renal stones and stent in place. An initial chest x-ray in the ED showed extensive airspace disease throughout the left upper lobe characteristic of pneumonia. He subsequently underwent a CT scan of the chest which showed consolidative changes in the left upper lobe along with suspicious adenopathy in the mediastinum. His initial creatinine level was 1.6 and the patient was placed on broad-spectrum antibiotics in addition to IV fluids. His laboratory data from today showed improvement of his renal function with a creatinine of 1.30 and lactic acid level measured at 1.0. [facility] was called for respiratory distress and the patient was a nonrebreather mask and transferred to [facility]. When seen in the ICU he was tachypneic, tachycardic and had a temperature of 103. The patient was subsequently intubated by myself and placed on full mechanical ventilation. A chest x-ray post intubation showed severe diffuse left lung airspace consolidation and a new mild consolation versus atelectasis in the right midlung zone. His nasal washing on arrival negative for influenza, and blood cultures and urine culture from yesterday showed no growth to date. The patient had a temperature of 102.8 earlier today. 07/09 Patient is sedated with versed, Fentanyl and intubated. Now on PRVC with RR 20, TV 550, IT:1, PEEP:15 and FIO2 100%. Afebrile. His Legionella urinary AG is positive. Renal function worse today with Cr 1.86 from 1.30 Objective Vital Signs Date Time Temp Pulse Resp B/P Pulse Ox O2 Delivery O2 Flow Rate FiO2 07/09/16 07:44 91 100 07/09/16 05:43 98.5 103 25 110/72 07/08/16 10:41 15.00 07/08/16 10:25 Non-Rebreather Intake and Output 07/08/16 07/08/16 07/09/16 08:00 16:00 00:00 Intake Total 600 ml Balance 600 ml Result Diagram: 07/09/16 0359 07/09/16 0359 Other Results Laboratory Tests Test 07/08/16 07/08/16 07/08/16 07/09/16 10:13 11:45 14:27 03:59 Blood Gas Puncture Site RT RADIAL RT RADIAL Blood Gas Patient Temperature 98.6 98.6 Blood Gas HCO3 19 mmol/L 23 mmol/L Blood Gas Base Excess -6.5 mmol/L -3.9 mmol/L Blood Gas Oxygen Saturation 86 % 94 % Arterial Blood pH 7.28 7.23 Arterial Blood Partial 42 mmHg 56 mmHg Pressure CO2 Arterial Blood Partial 61 mmHg 105 mmHg Pressure O2 Arterial Blood Oxygen Content 17.1 Vol % 17.0 Vol % Arterial Blood 0.6 % 0.8 % Carboxyhemoglobin Arterial Blood Methemoglobin 0.9 % 1.5 % Blood Gas Hemoglobin 14.2 G/DL 12.8 G/DL Oxygen Delivery Device NONREBREATHER VENTILATOR Blood Gas Liter Flow 15 L/M Blood Gas Inspired Oxygen 100 % 100 % Blood Gas Ventilator Setting A/C 550/16/10PEEP Lactic Acid Level 1.4 mmol/L White Blood Count 15.7 TH/MM3 Red Blood Count 3.82 MIL/MM3 Hemoglobin 12.6 GM/DL Hematocrit 37.7 % Mean Corpuscular Volume 98.8 FL Mean Corpuscular Hemoglobin 32.9 PG Mean Corpuscular Hemoglobin 33.3 % Concent Red Cell Distribution Width 14.4 % Platelet Count 247 TH/MM3 Mean Platelet Volume 8.3 FL Neutrophils (%) (Auto) 84.3 % Lymphocytes (%) (Auto) 8.1 % Monocytes (%) (Auto) 7.3 % Eosinophils (%) (Auto) 0.1 % Basophils (%) (Auto) 0.2 % Neutrophils # (Auto) 13.2 TH/MM3 Lymphocytes # (Auto) 1.3 TH/MM3 Monocytes # (Auto) 1.1 TH/MM3 Eosinophils # (Auto) 0.0 TH/MM3 Basophils # (Auto) 0.0 TH/MM3 CBC Comment DIFF FINAL Differential Comment Sodium Level 136 MEQ/L Potassium Level 4.2 MEQ/L Chloride Level 102 MEQ/L Carbon Dioxide Level 21.5 MEQ/L Anion Gap 13 MEQ/L Blood Urea Nitrogen 35 MG/DL Creatinine 1.86 MG/DL Estimat Glomerular Filtration 38 ML/MIN Rate Random Glucose 88 MG/DL Calcium Level 7.5 MG/DL Phosphorus Level 4.1 MG/DL Magnesium Level 2.1 MG/DL Imaging Last Impressions Chest X-Ray 07/08/16 0000 Signed Impressions: Service Date/Time: Friday, July 08, 2016 11:08 - CONCLUSION: 1. Endotracheal tube is present with tip measuring 5.7 cm from the farooq. 2. Severe diffuse left lung airspace consolidation, increased from yesterday's exam. There is also new mild consolidation versus atelectasis in the right midlung zone. Patel Palmer MD Abdomen/Pelvis CT 07/07/16 1110 Signed Impressions: Service Date/Time: Thursday, July 07, 2016 11:31 - CONCLUSION: 1. Renal stones and stents in good position as described above. Yosvany Fuentes MD FACR Chest CT 07/07/16 0000 Signed Impressions: Service Date/Time: Thursday, July 07, 2016 16:09 - CONCLUSION: 1. Consolidative changes in the left upper lobe. There is suspicious adenopathy in the mediastinum. This may be more than an inflammatory process. 2. Bronchoscopy may be the easiest way to make a diagnosis of a neoplastic process. Yosvany Fuentes MD FACR Objective Remarks GENERAL: Patient is 55 yo critically ill intubated and sedated. SKIN: Warm and dry. HEAD: Normocephalic. EYES: No scleral icterus. No injection or drainage. NECK: Supple, trachea midline. No JVD or lymphadenopathy. Orally intubated CARDIOVASCULAR: Regular rate and rhythm without murmurs, gallops, or rubs. RESPIRATORY: Breath sounds equal bilaterally. Coarse BS GASTROINTESTINAL: Abdomen soft, non-tender, nondistended. MUSCULOSKELETAL: No cyanosis, or edema. Neuro: Sedated A/P Assessment and Plan 1. Acute hypoxemic respiratory failure requiring intubation. 2. Sepsis. 3. ARDS 4. Pneumonia- Legionella urinary Ag positive 5. Acute renal failure 6. Acute metabolic encephalopathy. 7. Urinary tract infection. 8. History of renal calculi with bilateral ureteral stent placement in April. 9. History of hypertension. 10. Leukocytosis. 11. Mild hyponatremia. Plan Neuro: On Versed, Fentanyl infusion for sedation. Monitor neuro status. Continue with thiamine [address] on Nimbex infusion during pronation. Pulm: Continue with vent support and maintain sats > 92%. Bronchodilators, Solumederol 60mg Q8, pulm is following-Dr. Jaimes ICU vent bundle, check CXR and ABG Given severe ARDS with PAO2/FIO2 < 100 will proceed with pronation in addition will start patient on Flolan 50ng/kg/min neb solution at 8ml/hr CV: Monitor HR and BP keep MAP>65mmHg. Lactic acid level measured at 1.4 For 2D echo to eval LV function :. Monitor renal function, Is and Os and electrolyte replacement as needed. Avoid nephrotoxin. Consult Urology service for hx flank pain and renal calculi with ureteral stent placement. GI: On tube feeds- Glucerna 1.5@45ml/hr, Protonix 40mg IV daily for GI prophylaxis ID: Continue with apbx (vancomycin, Zithromax and Zosyn) ID is following 07/08 Legionella urinary antigen positive. 07/07 BC : GPC 06/21 bottles Endo: SSI with Accu-Chek q.6 hours for glycemic control Heme: Monitor CBC. GI prophylaxis with Protonix 40 mg daily and DVT prophylaxis with SCDs and heparin subcu. Lines; Peripheral IV, will place central line Discussed with patient's family and updated them on his condition. CCT 40 mins Nata Choi MD Jul 09, 2016 08:05
[2016-07-09 08:12] LABS: BLOOD GAS BASE EXCESS -3.8 mmol/L (-2-2); BLOOD GAS CARBOXYHEMOGLOBIN 0.9 % (0-4); BLOOD GAS HCO3 22 mmol/L (22-26); BLOOD GAS METHEMOGLOBIN 1.6 % (0-2); BLOOD GAS O2 HGB SATURATION 90 % (90-100); BLOOD GAS OXYGEN CONTENT 15.4 Vol % (12.0-20.0); BLOOD GAS PCO2 48 mmHg (38-42); BLOOD GAS PO2 71 mmHg (61-120); BLOOD GAS TOTAL HGB 12.1 G/DL (12.0-16.0); CRITICAL VALUE YES; OXYGEN DEVICE VENTILATOR; TEMP CORR TO 98.6
[2016-07-09 08:13] LABS: DRAW SITE RT RADIAL; FIO2 100 %; NUMBER OF ARTERIAL PUNCTURES 1; STAT YES; ULNAR PULSE PRESENT; VENT SETTINGS PRVC/AC
--- NOTE | 2016-07-09 08:51 | RADRPT ---
EXAM DATE/TIME: 07/09/2016 08:23 [facility] COMPARISON: CHEST SINGLE AP, July 08, 2016, 11:08. INDICATIONS : Respiratory disease MEDICAL HISTORY : Sepsis. SURGICAL HISTORY : None. ENCOUNTER: Subsequent ACUITY: 3 days PAIN SCORE: Non-responsive. LOCATION: Bilateral chest FINDINGS: Portable AP view of the chest demonstrates a normal-sized cardiac silhouette. Endotracheal tube tip m easures 5.4 cm from the farooq, and NG tube courses beyond the GE junction. There is severe diffuse l eft lung airspace consolidation with pleural based opacity. There is subtle airspace opacity in the r ight midlung zone. No pneumothorax is visualized. CONCLUSION: 1. Persistent severe diffuse left lung airspace consolidation with likely left pleural effusion. 2. Stable subtle airspace consolidation/opacity in the right midlung zone. Patel Palmer MD on July 09, 2016 at 8:48 Board Certified Radiologist. This report was verified electronically.
[2016-07-09] MEDS: VANCOMYCIN INJ 1,500 MG in SODIUM CHLORID 0.9% 500 ML INJ 500 ML IV SCH (08:57)
[2016-07-09] MEDS: NICOTINE 21 MG/24 HR PATCH TD SCH (08:58)
[2016-07-09] MEDS: THIAMINE HCL 100 MG TAB PO SCH (08:59)
[2016-07-09] MEDS: MULTIVITAMINS/MINERALS THERAPEUTIC TAB PO SCH (08:59)
[2016-07-09] MEDS: PANTOPRAZOLE SODIUM 40 MG VIAL IV PUSH SCH (08:59)
[2016-07-09] MEDS: SODIUM CHLORIDE 0.9% FLUSH 5 ML FLUSH FLUSH SCH ×2 (08:59→20:43)
--- NOTE | 2016-07-09 09:05 | HHI.FPPN ---
Subjective Remarks Overnight patient was having episodic episodes of hypoxia despite ventilation. Currently utilizing FiO2 100% and PEEP of 15. This morning patient remains intubated. Family is in the room and case was extensively discussed with them. Objective Vitals Vital Signs Date Time Temp Pulse Resp B/P Pulse Ox O2 Delivery O2 Flow Rate FiO2 07/09/16 08:00 100 07/09/16 08:00 103 07/09/16 08:00 100.3 106 24 91/58 97 07/09/16 07:44 91 100 07/09/16 06:00 100 07/09/16 06:00 97 07/09/16 05:43 98.5 103 25 110/72 93 07/09/16 04:02 96 80 07/09/16 04:00 95 07/09/16 04:00 100 07/09/16 02:00 96 07/09/16 01:05 97 80 07/09/16 00:00 98 07/09/16 00:00 100 07/08/16 22:09 94 100 07/08/16 22:00 108 07/08/16 20:08 102.1 111 22 111/74 94 07/08/16 20:00 100 07/08/16 20:00 112 07/08/16 19:55 94 80 07/08/16 18:00 100.3 115 24 115/57 98 07/08/16 16:00 80 07/08/16 15:03 95 80 07/08/16 12:00 102.2 115 24 93/57 98 07/08/16 11:00 93 100 07/08/16 10:41 92 15.00 100 07/08/16 10:25 92 Non-Rebreather 100 I/O 07/08/16 07/08/16 07/08/16 07/09/16 07/09/16 07/09/16 07:00 15:00 23:00 07:00 15:00 23:00 Intake Total 600 ml 331 ml Output Total 400 ml Balance 600 ml -69 ml Intake Oral 600 ml IV Total 202 ml Tube Feeding 129 ml Output Urine Total 400 ml # Voids 5 Result Diagram: 07/09/16 0359 07/09/16 0359 Imaging Last Impressions Chest X-Ray 07/09/16 0000 Signed Impressions: Service Date/Time: Saturday, July 09, 2016 10:44 - CONCLUSION: Left subclavian central line tip is in the superior aspect of the SVC. No pneumothorax is visualized. Otherwise, stable exam. Patel Palmer MD Abdomen/Pelvis CT 07/07/16 1110 Signed Impressions: Service Date/Time: Thursday, July 07, 2016 11:31 - CONCLUSION: 1. Renal stones and stents in good position as described above. Yosvany Fuentes MD FACR Chest CT 07/07/16 0000 Signed Impressions: Service Date/Time: Thursday, July 07, 2016 16:09 - CONCLUSION: 1. Consolidative changes in the left upper lobe. There is suspicious adenopathy in the mediastinum. This may be more than an inflammatory process. 2. Bronchoscopy may be the easiest way to make a diagnosis of a neoplastic process. Yosvany Fuentes MD FACR Objective Remarks GEN: Well-developed, well-nourished patient. Sedated and intubated. CV: Regular rate and rhythm without obvious murmurs LUNGS: Coarse breath sounds bilaterally. Rhonchi more prominent on left versus right. GI: Soft, nontender, nondistended. No palpable masses. EXT: No edema. No calf tenderness. NEURO/PSYCH: Sedated A/P Assessment and Plan 55 year old male with h/o HTN, renal calculi, s/p bilateral ureteral stent placements presented due to bilateral flank pain more significant on the left x 3 days, admitted for left-sided pneumonia, sepsis, possible UTI. Critical care was consulted on 07/08 due to acute worsening of symptoms associated with respiratory distress. Neuro: Sedated due to intubation -On Versed, Fentanyl infusion for sedation. Pulm: Left pneumonia, severe ARDS, respiratory distress, COPD, suspicious adenopathy in the mediastinum Pulmonary consulted: appreciate recommendations * Will require bronchoscopic examination -ABG showing respiratory acidosis without compensation -Due to severe ARDS, will have patient in prone position Imaging: * CXR 07/09: Persistent severe diffuse left lung air space consolidation with likely left pleural effusion. Stable subtle airspace consolidation/opacity the in the right midlung * CXR 07/08: Endotracheal tube present. Severe diffuse left lung air space consolidation increased from the day prior. There is also new mild consolidative versus atelectasis in the right midlung zone * Chest CT: Consolidative changes in the left upper lobe. There is suspicious adenopathy in the mediastinum. This may be more than an inflammatory process * CXR 07/07: Extensive airspace disease throughout the left upper lobe characteristic of pneumonitis Medications: * Albuterol and Duonebs * Solu-Medrol, 60mg Q8 * Flolan 50ng/kg/min neb solution at 8ml/hr Cardiac: HLD, HTN but now hypotensive -ACS negative -Echo ordered -continued home atorvastatin -help home amlodipine : S/P bilateral ureteral stents, JASON Urology consulted: Appreciate recommendations * Once clinical picture improves, may remove stents versus attempted attempted ureteroscopy and laser lithotripsy * Will follow -Acute increase in creatinine. Fluids held due to potential fluid overload GI: -On tube feeds- Glucerna -Protonix 40mg IV daily for GI prophylaxis ID: Legionella pneumonia, leukocytosis, sepsis -Uptrending leukocytosis despite antibiotics -Continues to have recurrent fevers -Urine culture negative -1 of 2 blood culture on 07/07 positive for staph S/P coagulase-negative, likely due to contamination -Repeat blood cultures pending -Sputum culture pending ID consulted: Appreciate recommendations * If respiratory status continues to decline, consider CTA for evaluation of PE * Vancomycin 07/07- * Zosyn 07/07- * Azithromycin 07/08- Endo: SSI with Accu-Chek DVT prophylaxis: SCDs until after a line placement Discharge Planning Timetable unknown. Pending respiratory improvement. dw Dr. Diallo and Dr. Rodriguez Problem List: (1) Pneumonia Status: Acute (2) Sepsis Status: Acute (3) Sepsis Status: Acute (4) COPD (chronic obstructive pulmonary disease) Status: Acute (5) ARDS (adult respiratory distress syndrome) Status: Acute Problem Qualifiers (1) Pneumonia: Qualified Code: J18.1 - Pneumonia of left upper lobe due to infectious organism (2) Sepsis: Qualified Code: A41.9 - Sepsis, due to unspecified organism Xiomara Rodas MD R2 Jul 09, 2016 09:05 Xiomara Rodas MD R2 Jul 09, 2016 09:05 (2) Urinary tract infection Status: Acute Plan: UA with 25 WBCs and many bacteria, culture pending Antibiotics as above Urology consulted given patient with significant history of bilateral renal calculi and bilateral ureteral stent placements could be acting as a nidus for infections, possibly contributing to sepsis (3) Sepsis Status: Acute Plan: Meets sepsis criteria Antibiotics and plan as above (4) Nutrition, metabolism, and development symptoms Status: Acute Plan: Fluids: Discontinued Electrolytes: Na 134, otherwise WNLs Nutrition: NPO, on mech vent DVT PPX: SCDs GI PPX: Protonix sdw Dr. Diallo, Luigi, and Adrianna Problem Qualifiers (1) Pneumonia: Qualified Code: J18.1 - Pneumonia of left upper lobe due to infectious organism (2) Urinary tract infection: Qualified Code: T83.512A - Urinary tract infection associated with nephrostomy catheter, initial encounter Xiomara Rodas MD R2 Jul 09, 2016 09:05
--- NOTE | 2016-07-09 10:47 | PD.PROCEDR ---
Central Line Procedure REASON FOR PROCEDURE Central venous access PROCEDURE PERFORMED Central line placement: Left subclavian CVP CONSENT Informed consent for procedure was obtained. The risks and benefits of the procedure were discussed to include but limited to bleeding, clot formation, infection, and even . ANESTHESIA Local injection of 1% Lidocaine DESCRIPTION OF THE PROCEDURE The patient was placed in supine, mild Trendelenburg position. The area was exposed and cleansed with ChloraPrep, times two. Large sterile drape was used to cover the patient, with the site exposed, under sterile conditions including cap, face mask, sterile gown, and sterile gloves. On single attempt, the introducer needle was inserted with negative pressure in syringe and venous flash was obtained. The guide wire was then advanced without any restriction and the needle was removed. The dilator was used without any complications. Using Seldinger technique the catheter was advanced over the guide wire to a depth of 20 centimeters. The guide wire was removed. All ports were aspirated with dark venous blood return and flushed easily with sterile saline. All ports were capped. Antibiotic disc was placed around central line at puncture site. The central line was secured to the skin with two interrupted 2.0 silk sutures. The area was bandaged with sterile see-through central line bandage. RADIOLOGICAL DATA CXR ordered to verify line placement. COMPLICATIONS: No apparent complications ESTIMATED BLOOD LOSS: Less than 1 cc. Nata Choi MD Jul 09, 2016 10:47
[2016-07-09] MEDS: EPOPROSTENOL NEB SOLUTION 50 NG/KG/MIN 100 ML NEB SCH ×6 (11:00→20:42)
--- NOTE | 2016-07-09 11:22 | RADRPT ---
EXAM DATE/TIME: 07/09/2016 10:44 [facility] COMPARISON: CHEST SINGLE AP, July 09, 2016, 8:23. INDICATIONS : Central Line Placement. MEDICAL HISTORY : Cardiovascular disease. Hypertension. SURGICAL HISTORY : None. ENCOUNTER: Initial ACUITY: 1 day PAIN SCORE: Non-responsive. LOCATION: Bilateral chest FINDINGS: Portable AP view of the chest demonstrates left subclavian central line with distal tip in the region of the SVC. No pneumothorax is visualized. There is persistent severe left lung airspace consolidati on and possible pleural based opacity. ETT and NG tube remain present. CONCLUSION: Left subclavian central line tip is in the superior aspect of the SVC. No pneumothorax is visualized. Otherwise, stable exam. Patel Palmer MD on July 09, 2016 at 11:20 Board Certified Radiologist. This report was verified electronically.
--- NOTE | 2016-07-09 11:47 | PD.CONS ---
[facility] Service Urology Consult Requested By Reason for Consult UTI and bilateral ureteral stents Primary Care Physician Abigail Chau MD Diagnosis: History of Present Illness 55 yo male with history of bilateral nephrolithiasis currently with bilateral ureteral stents in place now with pneumonia and UTI. CT scan identified the pneumonia and the patient's respiratory status deteriorated with significant fevers and he was therefore intubated and placed in the ICU. He has somewhat improved with IV antibiotics. He has bilateral ureteral stent in place due to bilateral nephrolithiasis placed in late April. Patient's daughter reports he has passed a small stone. The stents are causing him discomfort with occasional hematuria. Review of Systems ROS Limitations: Clinical Condition, Intubated Constitutional: COMPLAINS OF: Fever Eyes: DENIES: Vision loss Ears, nose, mouth, throat: DENIES: Hearing loss Respiratory: COMPLAINS OF: Cough, Sputum production, Shortness of breath Cardiovascular: DENIES: Chest pain Gastrointestinal: DENIES: Abdominal pain Genitourinary: COMPLAINS OF: Hematuria, Dysuria Musculoskeletal: DENIES: Joint pain Integumentary: DENIES: Rash Neurologic: DENIES: Headache Psychiatric: DENIES: Anxiety Past Family Social History Past Medical History HTN Renal calculi Diverticulitis Ureterolithiasis Chronic sinusitis H/o MRSA in nares Past Surgical History Bilateral ureteral stent placement Colovesicular fistula requiring a diverting colostomy, partial colectomy and eventual reanastomosis in 2007 Partial bladder removal Hernia repair Multiple sinus operations Reported Medications Reported Meds & Active Scripts Active Reported Amlodipine (Amlodipine Besylate) 10 Mg Tab 10 Mg PO DAILY Dexilant (Dexlansoprazole) 60 Mg Cap 60 Mg PO DAILY Atorvastatin (Atorvastatin Calcium) 80 Mg Tab 80 Mg PO HS [place] (Hydrocodone-Acetaminophen) 7.5-325 mg Tab 1-2 Tab PO Q6H PRN Ventolin Hfa 18 GM Inh (Albuterol Sulfate) 90 Mcg/Act Aer 1-2 Puff INH Q4-6H PRN Allergies: Coded Allergies: Shellfish (Verified Allergy, Severe, HIVES, SWELLING, 07/07/16) Sulfa (Verified Allergy, Severe, HIVES, 07/07/16) Active Ordered Medications Current Medications Medications (Trade) Dose Ordered Sig/Veronica Route Start Time Stop Time Status Last Admin (Tylenol) 650 mg Q4H PRN PO 07/07/16 17:00 07/08/16 20:44 (Zofran Inj) 4 mg Q6H PRN IV 07/07/16 16:00 07/08/16 02:02 (NS Flush) 2 ml UNSCH PRN FLUSH 07/07/16 16:00 (NS Flush) 2 ml BID FLUSH 07/07/16 21:00 07/09/16 08:59 (Narcan Inj) 0.4 mg UNSCH PRN IV 07/07/16 16:00 (Vitamin B1) 100 mg DAILY PO 07/07/16 17:00 07/09/16 08:59 (Theragran M Tab) 1 tab DAILY PO 07/07/16 17:00 07/12/16 16:59 07/09/16 08:59 ([place] 5-325 Mg) 1 tab Q4H PRN PO 07/07/16 17:00 ([place] 10-325 Mg) 1 tab Q4H PRN PO 07/07/16 17:00 07/08/16 05:03 Morphine Sulfate 4 mg 4 mg Q4HR PRN IV 07/07/16 16:00 07/08/16 12:30 Vancomycin HCl 1500 mg/Sodium Chloride 515 ml @ 257.5 mls/ hr Q18H IV 07/08/16 14:00 Hold 07/09/16 08:57 (Zosyn 4.5 Gm Premix) 100 ml @ 200 mls/hr Q8H IV 07/07/16 22:00 07/09/16 05:39 (Lipitor) 80 mg HS PO 07/07/16 21:00 07/08/16 20:44 (Habitrol 21 Mg Patch.24 Hr) 1 patch DAILY TD 07/07/16 18:00 07/09/16 08:58 Miscellaneous Information 1 1 HS TD 07/07/16 21:00 07/08/16 21:00 Azithromycin 500 mg/Sodium Chloride 250 ml @ 250 mls/hr Q24H IV 07/08/16 12:00 07/08/16 12:34 (Diprivan 1000 Mg/100ml Inj) 100 ml @ 0 mls/hr TITRATE IV 07/08/16 11:15 (Protonix Inj) 40 mg DAILY IV PUSH 07/08/16 11:15 07/09/16 08:59 (D50w (Vial) Inj) 25 ml UNSCH PRN IV PUSH 07/08/16 11:15 (Glucagon Inj) 1 mg UNSCH PRN OTHER 07/08/16 11:15 Insulin Human Regular 1 1 Q6HR SQ 07/08/16 12:00 Pharmacy Profile Note 0 ml @ 0 mls/hr UNSCH OTHER 07/08/16 12:30 Midazolam HCl 100 ml @ 0 mls/hr TITRATE IV 07/08/16 20:45 07/08/16 20:44 (fentaNYL DRIP) 250 ml @ 0 mls/hr TITRATE IV 07/09/16 08:00 Methylprednisolone Sodium Succinate 60 mg 60 mg Q8HR IV PUSH 07/09/16 08:00 07/09/16 08:00 (Flolan (30,000 Ng/ml) Neb/NS Inj) 100 ml @ 8 mls/hr Q8H NEB 07/09/16 11:00 Family History Mother: arthritis, alive, no cancer, 82yo Social History Tobacco: 2 PPD x 41 years Etoh: 2-3 drinks nightly, vodka and 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, has been drinking since 18yo Illicit drugs: denies Lives alone in [place] 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3 115 24 115/57 98 07/08/16 16:00 80 07/08/16 15:03 95 80 07/08/16 12:00 102.2 115 24 93/57 98 Physical Exam GENERAL: This is a well-nourished, well-developed patient SKIN: No rashes, ecchymoses or lesions. Cool and dry. HEAD: Atraumatic. Normocephalic. EYES: Extraocular motions intact. No scleral icterus. No injection or drainage. ENT: Nose without bleeding, purulent drainage. NECK: Trachea midline. CARDIOVASCULAR: Nrmal pules, tachycardic RESPIRATORY: Intubated on ventilation, however awake and alert GASTROINTESTINAL: Abdomen soft, non-tender, nondistended. MUSCULOSKELETAL: Extremities without clubbing, cyanosis, or edema. NEUROLOGICAL: Awake and alert. Motor and sensory grossly within normal limits. Laboratory Laboratory Tests Test 07/08/16 07/08/16 07/09/16 07/09/16 11:45 14:27 03:59 08:04 Blood Gas Puncture Site RT RADIAL RT RADIAL Blood Gas Patient Temperature 98.6 98.6 Blood Gas HCO3 23 22 Blood Gas Base Excess -3.9 -3.8 Blood Gas Oxygen Saturation 94 90 Arterial Blood pH 7.23 7.28 Arterial Blood Partial 56 48 Pressure CO2 Arterial Blood Partial 105 71 Pressure O2 Arterial Blood Oxygen Content 17.0 15.4 Arterial Blood 0.8 0.9 Carboxyhemoglobin Arterial Blood Methemoglobin 1.5 1.6 Blood Gas Hemoglobin 12.8 12.1 Oxygen Delivery Device VENTILATOR VENTILATOR Blood Gas Ventilator Setting A/C PRVC/AC 550/16/10PEEP Blood Gas Inspired Oxygen 100 100 Lactic Acid Level 1.4 White Blood Count 15.7 Red Blood Count 3.82 Hemoglobin 12.6 Hematocrit 37.7 Mean Corpuscular Volume 98.8 Mean Corpuscular Hemoglobin 32.9 Mean Corpuscular Hemoglobin 33.3 Concent Red Cell Distribution Width 14.4 Platelet Count 247 Mean Platelet Volume 8.3 Neutrophils (%) (Auto) 84.3 Lymphocytes (%) (Auto) 8.1 Monocytes (%) (Auto) 7.3 Eosinophils (%) (Auto) 0.1 Basophils (%) (Auto) 0.2 Neutrophils # (Auto) 13.2 Lymphocytes # (Auto) 1.3 Monocytes # (Auto) 1.1 Eosinophils # (Auto) 0.0 Basophils # (Auto) 0.0 CBC Comment DIFF FINAL Differential Comment Sodium Level 136 Potassium Level 4.2 Chloride Level 102 Carbon Dioxide Level 21.5 Anion Gap 13 Blood Urea Nitrogen 35 Creatinine 1.86 Estimat Glomerular Filtration 38 Rate Random Glucose 88 Calcium Level 7.5 Phosphorus Level 4.1 Magnesium Level 2.1 Date/Time Procedure Status Source Growth 07/09/16 04:10 Aerobic Blood Culture Received Blood Peripheral Pending 07/09/16 04:10 Anaerobic Blood Culture Received Blood Peripheral Pending 07/08/16 16:20 Gram Stain - Final Resulted Sputum Endotracheal 07/08/16 16:20 Sputum Culture Resulted Sputum Endotracheal Pending 07/08/16 13:30 Legionella Antigen - Final Complete Urine Catheterized Urine Pos For Legionella Antigen 07/08/16 13:30 Streptococcus pneumoniae Antigen (M - Final Complete Urine Catheterized Urine PRESUMPTIVE NEGATIVE FOR STREPTOCOCCU... 07/07/16 14:35 Acid Fast Stain - Final Resulted Sputum Expectorated Sputum NO ACID FAST BACILLI SEEN 07/07/16 14:35 Mycobacterial Culture Resulted Sputum Expectorated Sputum Pending 07/07/16 13:15 Influenza Types A,B Antigen (NIVIA) - Final Complete Nasal Washing NEGATIVE FOR FLU A AND B ANTIGEN.... 07/07/16 13:15 Aerobic Blood Culture - Preliminary Resulted Blood Peripheral Staph Sp Coagulase Negative 07/07/16 13:15 Anaerobic Blood Culture - Preliminary Resulted Blood Peripheral NO GROWTH IN 2 DAYS 07/07/16 12:30 Urine Culture - Final Complete Urine Clean Catch NO GROWTH IN 48 HOURS. Result Diagram: 07/09/16 0359 07/09/16 0359 Imaging Last 72 hours Impressions Chest X-Ray 07/09/16 0000 Signed Impressions: Service Date/Time: Saturday, July 09, 2016 10:44 - CONCLUSION: Left subclavian central line tip is in the superior aspect of the SVC. No pneumothorax is visualized. Otherwise, stable exam. Patel Palmer MD Chest X-Ray 07/09/16 0000 Signed Impressions: Service Date/Time: Saturday, July 09, 2016 08:23 - CONCLUSION: 1. Persistent severe diffuse left lung airspace consolidation with likely left pleural effusion. 2. Stable subtle airspace consolidation/opacity in the right midlung zone. Patel Palmer MD Chest X-Ray 07/08/16 0000 Signed Impressions: Service Date/Time: Friday, July 08, 2016 11:08 - CONCLUSION: 1. Endotracheal tube is present with tip measuring 5.7 cm from the farooq. 2. Severe diffuse left lung airspace consolidation, increased from yesterday's exam. There is also new mild consolidation versus atelectasis in the right midlung zone. Patel Palmer MD Abdomen/Pelvis CT 07/07/16 1110 Signed Impressions: Service Date/Time: Thursday, July 07, 2016 11:31 - CONCLUSION: 1. Renal stones and stents in good position as described above. Yosvany Fuentes MD FACR Chest X-Ray 07/07/16 0000 Signed Impressions: Service Date/Time: Thursday, July 07, 2016 12:49 - CONCLUSION: Extensive airspace disease throughout the left upper lobe characteristic of pneumonitis. Vlad Arteaga MD Chest CT 07/07/16 0000 Signed Impressions: Service Date/Time: Thursday, July 07, 2016 16:09 - CONCLUSION: 1. Consolidative changes in the left upper lobe. There is suspicious adenopathy in the mediastinum. This may be more than an inflammatory process. 2. Bronchoscopy may be the easiest way to make a diagnosis of a neoplastic process. Yosvany Fuentes MD FACR Last 48 hours Impressions Chest X-Ray 07/09/16 0000 Signed Impressions: Service Date/Time: Saturday, July 09, 2016 10:44 - CONCLUSION: Left subclavian central line tip is in the superior aspect of the SVC. No pneumothorax is visualized. Otherwise, stable exam. Patel Palmer MD Chest X-Ray 07/09/16 0000 Signed Impressions: Service Date/Time: Saturday, July 09, 2016 08:23 - CONCLUSION: 1. Persistent severe diffuse left lung airspace consolidation with likely left pleural effusion. 2. Stable subtle airspace consolidation/opacity in the right midlung zone. Patel Palmer MD Chest X-Ray 07/08/16 0000 Signed Impressions: Service Date/Time: Friday, July 08, 2016 11:08 - CONCLUSION: 1. Endotracheal tube is present with tip measuring 5.7 cm from the farooq. 2. Severe diffuse left lung airspace consolidation, increased from yesterday's exam. There is also new mild consolidation versus atelectasis in the right midlung zone. Patel Palmer MD Assessment and Plan Problem List: (1) Urinary tract infection ICD Code: N39.0 Status: Acute (2) COPD (chronic obstructive pulmonary disease) ICD Code: J44.9 Status: Acute (3) Sepsis ICD Code: A41.9 Status: Acute Assessment and Plan -Discussed the management of bilateral ureteral stents and stones with the patient and daughter -Given his clinical state, we will not pursue any intervention to remove the stents are stones -When the patient's clinical picture improves, we may remove the stents, vs attempted ureteroscopy and laser lithotripsy. However, in order to perform lithotripsy patient must be medically cleared with no evidence of infection. -Patient and family understand -Will follow -Please call with questions Problem Qualifiers (1) Urinary tract infection: Qualified Code: T83.512A - Urinary tract infection associated with nephrostomy catheter, initial encounter Jn Baron MD Jul 09, 2016 11:47
[2016-07-09] MEDS: AZITHROMYCIN INJ 500 MG in SODIUM CHLOR 0.9% 250 ML INJ 250 ML IV SCH (13:07)
[2016-07-09] MEDS: ACETAMINOPHEN 325 MG TAB PO PRN (13:08)
--- NOTE | 2016-07-09 14:53 | HHI.IDPN ---
Subjective Subjective Remarks Mr. Ambrocio is a 55-year-old male with past medical history significant for renal calculi status post bilateral ureteral stent placements as well as hypertension who presented to the emergency department to bilateral flank pain for the past 3 days. He also had shortness of breath and chest discomfort on admission. ID following for sepsis, pneumonia, legionella antigen positive, possible UTI. Overnight events reviewed. Persistent high grade fevers Tmax 103 F. No rash No diarrhea Remains intubated. CXR with white out on left side. Some diffuse infiltrates on left side too. CXR reviewed by me. Patient will be placed on rotaprone bed ? ARDS physiology. Antibiotics Zosyn IV Vanco IV Azithro IV Lines Line sites with no e/o infection Past Medical History reviewed. 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 Vital Signs Date Time Temp Pulse Resp B/P Pulse Ox O2 Delivery O2 Flow Rate FiO2 07/09/16 12:00 103.0 106 24 138/58 97 07/09/16 12:00 100 07/09/16 11:53 103.0 106 24 138/58 97 07/09/16 11:50 89 100 07/09/16 08:00 100 07/09/16 08:00 103 07/09/16 08:00 100.3 106 24 91/58 97 07/09/16 07:44 91 100 07/09/16 06:00 100 07/09/16 06:00 97 07/09/16 05:43 98.5 103 25 110/72 93 07/09/16 04:02 96 80 07/09/16 04:00 95 07/09/16 04:00 100 07/09/16 02:00 96 07/09/16 01:05 97 80 07/09/16 00:00 98 07/09/16 00:00 100 07/08/16 22:09 94 100 07/08/16 22:00 108 07/08/16 20:08 102.1 111 22 111/74 94 07/08/16 20:00 100 07/08/16 20:00 112 07/08/16 19:55 94 80 07/08/16 18:00 100.3 115 24 115/57 98 07/08/16 16:00 80 07/08/16 15:03 95 80 07/08/16 07/08/16 07/09/16 15:00 23:00 07:00 Intake Total 331 ml Output Total 400 ml Balance -69 ml IV Total 202 ml Tube Feeding 129 ml Output Urine Total 400 ml . Laboratory Tests Test 07/08/16 07/09/16 06:40 03:59 White Blood Count 14.4 TH/MM3 15.7 TH/MM3 Red Blood Count 3.80 MIL/MM3 3.82 MIL/MM3 Hemoglobin 12.5 GM/DL 12.6 GM/DL Hematocrit 37.1 % 37.7 % Mean Corpuscular Volume 97.6 FL 98.8 FL Mean Corpuscular Hemoglobin 32.9 PG 32.9 PG Mean Corpuscular Hemoglobin 33.7 % 33.3 % Concent Red Cell Distribution Width 13.8 % 14.4 % Platelet Count 261 TH/MM3 247 TH/MM3 Mean Platelet Volume 8.2 FL 8.3 FL Neutrophils (%) (Auto) 93.8 % 84.3 % Lymphocytes (%) (Auto) 2.0 % 8.1 % Monocytes (%) (Auto) 3.8 % 7.3 % Eosinophils (%) (Auto) 0.0 % 0.1 % Basophils (%) (Auto) 0.4 % 0.2 % Neutrophils # (Auto) 13.5 TH/MM3 13.2 TH/MM3 Lymphocytes # (Auto) 0.3 TH/MM3 1.3 TH/MM3 Monocytes # (Auto) 0.5 TH/MM3 1.1 TH/MM3 Eosinophils # (Auto) 0.0 TH/MM3 0.0 TH/MM3 Basophils # (Auto) 0.1 TH/MM3 0.0 TH/MM3 CBC Comment DIFF FINAL DIFF FINAL Differential Comment Laboratory Tests Test 07/07/16 07/08/16 07/08/16 07/09/16 21:45 06:40 14:27 03:59 Lactic Acid Level 1.4 mmol/L 1.0 mmol/L 1.4 mmol/L Sodium Level 134 MEQ/L 136 MEQ/L Potassium Level 3.7 MEQ/L 4.2 MEQ/L Chloride Level 102 MEQ/L 102 MEQ/L Carbon Dioxide Level 24.0 MEQ/L 21.5 MEQ/L Anion Gap 8 MEQ/L 13 MEQ/L Blood Urea Nitrogen 23 MG/DL 35 MG/DL Creatinine 1.30 MG/DL 1.86 MG/DL Estimat Glomerular Filtration 57 ML/MIN 38 ML/MIN Rate Random Glucose 123 MG/DL 88 MG/DL Calcium Level 7.9 MG/DL 7.5 MG/DL Total Bilirubin 0.3 MG/DL Aspartate Amino Transf 24 U/L (AST/SGOT) Alanine Aminotransferase 22 U/L (ALT/SGPT) Alkaline Phosphatase 64 U/L Total Protein 7.2 GM/DL Albumin 2.5 GM/DL Phosphorus Level 4.1 MG/DL Magnesium Level 2.1 MG/DL Microbiology Date/Time Procedure Status Source Growth 07/07/16 12:30 Urine Culture - Final Complete Urine Clean Catch NO GROWTH IN 48 HOURS. 07/07/16 13:10 Aerobic Blood Culture - Preliminary Resulted Blood Peripheral NO GROWTH IN 2 DAYS 07/07/16 13:10 Anaerobic Blood Culture - Preliminary Resulted Blood Peripheral NO GROWTH IN 2 DAYS 07/07/16 13:15 Aerobic Blood Culture - Preliminary Resulted Blood Peripheral Staph Sp Coagulase Negative 07/07/16 13:15 Anaerobic Blood Culture - Preliminary Resulted Blood Peripheral NO GROWTH IN 2 DAYS 07/07/16 13:15 Influenza Types A,B Antigen (NIVIA) - Final Complete Nasal Washing NEGATIVE FOR FLU A AND B ANTIGEN.... 07/07/16 14:35 Acid Fast Stain - Final Resulted Sputum Expectorated Sputum NO ACID FAST BACILLI SEEN 07/07/16 14:35 Mycobacterial Culture Resulted Sputum Expectorated Sputum Pending 07/07/16 17:35 Gram Stain - Final Resulted Sputum Expectorated Sputum 07/07/16 17:35 Sputum Culture - Preliminary Resulted Sputum Expectorated Sputum IMMATURE GROWTH - REINCUBATE 07/08/16 13:30 Legionella Antigen - Final Complete Urine Catheterized Urine Pos For Legionella Antigen 07/08/16 13:30 Streptococcus pneumoniae Antigen (M - Final Complete Urine Catheterized Urine PRESUMPTIVE NEGATIVE FOR STREPTOCOCCU... 07/08/16 16:20 Gram Stain - Final Resulted Sputum Endotracheal 07/08/16 16:20 Sputum Culture - Preliminary Resulted Sputum Endotracheal RESULTS PENDING 07/09/16 03:59 Aerobic Blood Culture Received Blood Peripheral Pending 07/09/16 03:59 Anaerobic Blood Culture Received Blood Peripheral Pending 07/09/16 04:10 Aerobic Blood Culture Received Blood Peripheral Pending 07/09/16 04:10 Anaerobic Blood Culture Received Blood Peripheral Pending Imaging Last Impressions Chest X-Ray 07/09/16 0000 Signed Impressions: Service Date/Time: Saturday, July 09, 2016 10:44 - CONCLUSION: Left subclavian central line tip is in the superior aspect of the SVC. No pneumothorax is visualized. Otherwise, stable exam. Patel Palmer MD Abdomen/Pelvis CT 07/07/16 1110 Signed Impressions: Service Date/Time: Thursday, July 07, 2016 11:31 - CONCLUSION: 1. Renal stones and stents in good position as described above. Yosvany Fuentes MD FACR Chest CT 07/07/16 0000 Signed Impressions: Service Date/Time: Thursday, July 07, 2016 16:09 - CONCLUSION: 1. Consolidative changes in the left upper lobe. There is suspicious adenopathy in the mediastinum. This may be more than an inflammatory process. 2. Bronchoscopy may be the easiest way to make a diagnosis of a neoplastic process. Yosvany Fuentes MD FACR Physical Exam GENERAL: Obese, well-developed patient, in no apparent distress. SKIN: No rashes. Cool and dry. HEAD: Atraumatic. Normocephalic. No temporal or scalp tenderness. EYES: Pupils equal round and reactive. Extraocular motions intact. No scleral icterus. No injection or drainage. ENT: Intubated. NECK: Trachea midline. Supple, nontender, no meningeal signs. CARDIOVASCULAR: Heart sounds audible. No murmur appreciated. RESPIRATORY: Breath sounds diminished bilaterally occasional palpitations. GASTROINTESTINAL: Abdomen soft, non-tender, nondistended. Obese. MUSCULOSKELETAL: Extremities without clubbing, cyanosis, or edema. No joint tenderness, effusion, or edema noted. No calf tenderness. Negative Homans sign bilaterally. NEUROLOGICAL: Sedated. Psych could not be assessed IV line sites with no evidence of infection. Assessment & Plan Remarks Severe sepsis present on admission(criteria explained in history of present illness) Complicated urinary tract infection in a patient with bilateral ureteral stents. Pneumonia present on admission (community acquired, atypical, possible component of healthcare associated pneumonia) Likely Legionella Pneumonia with ARDS at this point. Acute renal failure present on admission likely sepsis related possible component of prerenal: Appears to be improving urine output. Acute metabolic encephalopathy: Possible component of aspiration, likely secondary to sepsis Recommendations: Follow cruz cultures Sputum cultures pending. Continue Zosyn IV(recommended a pseudomonal dose) DC vancomycin IV. Persistent high grade 103 F fevers and increase in Cr suspicious for Drug fever and Allergic interstitial nephritis. Start Zyvox IV Continue azithromycin IV. If fevers persist and resp condition worsens will consider 2nd agent for Legionella such as Levaquin plus minus Rifampin. Follow cultures Follow clinically d/w Brenda Miranda MD Jul 09, 2016 14:53
[2016-07-09] MEDS: LINEZOLID 600 MG PREMIX 300 ML IV SCH (15:00)
[2016-07-09] MEDS: ATORVASTATIN 80 MG TAB PO SCH (20:43)
[2016-07-09] MEDS: REMOVE OLD NICODERM (NICOTINE) PATCH TD SCH (21:00)
[2016-07-09] MEDS: CISATRACURIUM INJ 100 MG in SODIUM CHLOR 0.9% 250 ML INJ 240 ML IV SCH (23:37)
[2016-07-09] MEDS ORDERED: NOREPINEPHRINE 4 MG/D5W 250 ML IV SCH (23:45)
[2016-07-10] VITALS (19 sets, daily range): BP systolic 99–133; BP diastolic 56–79; PULSE 80–107; RESP 24; TEMP 97.6–97.9; O2SAT 9–100
[2016-07-10] MEDS ORDERED: PHARMACY ORDERED LAB XX ONE (01:45)
[2016-07-10] MEDS: INSULIN NovoLIN REGULAR SUPPLEMENTAL SCALE SQ SCH ×4 (01:56→17:40)
[2016-07-10] MEDS: MIDAZOLAM 100 MG/NS 100 ML DRIP Premix IV SCH ×3 (01:59→21:24)
[2016-07-10] MEDS: LINEZOLID 600 MG PREMIX 300 ML IV SCH ×2 (01:59→15:54)
[2016-07-10] MEDS: EPOPROSTENOL NEB SOLUTION 50 NG/KG/MIN 100 ML NEB SCH ×6 (02:01→21:24)
[2016-07-10] MEDS: RESP: ALBUTEROL 2.5 MG/IPRATROPIUM 0.5 MG NEB (SCH) NEB ×4 (03:19→20:44)
[2016-07-10 04:57] LABS: BASOPHIL % 0.2 % (0.0-2.0); HEMATOCRIT 33.5 % (39.0-51.0); HEMO FLAGS DIFF FINAL; LYMPH % 1.9 % (9.0-44.0); LYMPHOCYTE # 0.3 TH/MM3 (1.0-4.8); MEAN CELL VOLUME 97.4 FL (80.0-100.0); MEAN CORPUSCULAR HEMOGLOBIN 32.6 PG (27.0-34.0); MEAN CORPUSCULAR HGB CONC 33.5 % (32.0-36.0); MONO % 4.6 % (0.0-8.0); NEUT % 93.3 % (16.0-70.0); PLATELET COUNT 278 TH/MM3 (150-450); RED BLOOD COUNT 3.44 MIL/MM3 (4.50-5.90); RED CELL DISTRIBUTION WIDTH 14.4 % (11.6-17.2); WHITE BLOOD COUNT 16.1 TH/MM3 (4.0-11.0)
[2016-07-10 05:20] LABS: BICARBONATE 21.1 MEQ/L (21.0-32.0); MAGNESIUM 2.6 MG/DL (1.5-2.5)
[2016-07-10 05:33] LABS: CALCIUM-PROTEIN CORRECTED 7.5 MG/DL (8.5-10.1)
[2016-07-10] MEDS: methylPREDNISolone SOD SUCC 40 MG/1 ML VIAL IV PUSH SCH ×3 (06:18→21:24)
[2016-07-10] MEDS: PIPERACIL-TAZO 4.5 GM PREMIX 100 ML IV SCH ×3 (06:19→21:24)
[2016-07-10] MEDS: NICOTINE 21 MG/24 HR PATCH TD SCH (07:53)
[2016-07-10] MEDS: MULTIVITAMINS/MINERALS THERAPEUTIC TAB PO SCH (07:53)
[2016-07-10] MEDS: fentaNYL DRIP 250 ML IV SCH ×2 (07:53→23:55)
[2016-07-10] MEDS: THIAMINE HCL 100 MG TAB PO SCH (07:53)
[2016-07-10] MEDS: PANTOPRAZOLE SODIUM 40 MG VIAL IV PUSH SCH (07:53)
[2016-07-10] MEDS: SODIUM CHLORIDE 0.9% FLUSH 5 ML FLUSH FLUSH SCH ×2 (07:55→21:25)
[2016-07-10] MEDS: SODIUM CHLORIDE 0.9% FLUSH 5 ML FLUSH FLUSH PRN (07:55)
--- NOTE | 2016-07-10 08:14 | HHI.CCPN ---
Subjective Remarks/Hospital Course The patient is a 55-year-old male with a past medical history of hypertension, renal calculi, status post bilateral ureteral stent placement in April, . He presented to [facility] ED with a three-day history of bilateral flank pain associated with fever and severe body aches. Just prior to admission, the patient had gross hematuria per his daughter and had decreased p.o. intake. The patient denied any shortness of breath or chest pain. Due to his abdominal pain, a CT scan of the abdomen and pelvis was obtained which showed renal stones and stent in place. An initial chest x-ray in the ED showed extensive airspace disease throughout the left upper lobe characteristic of pneumonia. He subsequently underwent a CT scan of the chest which showed consolidative changes in the left upper lobe along with suspicious adenopathy in the mediastinum. His initial creatinine level was 1.6 and the patient was placed on broad-spectrum antibiotics in addition to IV fluids. His laboratory data from today showed improvement of his renal function with a creatinine of 1.30 and lactic acid level measured at 1.0. [facility] was called for respiratory distress and the patient was a nonrebreather mask and [place] [facility] When seen in the ICU he was tachypneic, tachycardic and had a temperature of 103. The patient was subsequently intubated by myself and placed on full mechanical ventilation. A chest x-ray post intubation showed severe diffuse left lung airspace consolidation and a new mild consolation versus atelectasis in the right midlung zone. His nasal washing on arrival negative for influenza, and blood cultures and urine culture from yesterday showed no growth to date. The patient had a temperature of 102.8 earlier today. 07/09 Patient is sedated with versed, Fentanyl and intubated. Now on PRVC with RR 20, TV 550, IT:1, PEEP:15 and FIO2 100%. Afebrile. His Legionella urinary AG is positive. Renal function worse today with Cr 1.86 from 1.30 07/10: Patient remains very critical. Placed on Prone therapy yesterday for worsening respiratory status and severe hypoxia. Worsening renal function- creatinine increased from 1.8-2.8 today, urology following, will consult nephrology. Remains on 4 mics per minute of Levophed, urine output adequate 1.9 L in 24 hours. Currently on broad-spectrum antibiotics per ID on Zosyn and azithromycin Zyvox. I have added Levaquin for double coverage for Legionella Objective Vital Signs Date Time Temp Pulse Resp B/P Pulse Ox O2 Delivery O2 Flow Rate FiO2 07/10/16 07:29 99 60 07/10/16 07:00 Mechanical Ventilator 07/10/16 06:00 85 07/10/16 04:00 97.9 24 100/56 125/66 07/08/16 10:41 15.00 Intake and Output 07/09/16 07/09/16 07/10/16 08:00 16:00 00:00 Intake Total 331 ml 1484 ml 1320 ml Output Total 400 ml 1400 ml 300 ml Balance -69 ml 84 ml 1020 ml Result Diagram: 07/10/16 0435 07/10/16 0435 Other Results Microbiology Date/Time Procedure Status Source Growth 07/07/16 12:30 Urine Culture - Final Complete Urine Clean Catch NO GROWTH IN 48 HOURS. 07/07/16 13:15 Influenza Types A,B Antigen (NIVIA) - Final Complete Nasal Washing NEGATIVE FOR FLU A AND B ANTIGEN.... 07/08/16 13:30 Legionella Antigen - Final Complete Urine Catheterized Urine Pos For Legionella Antigen 07/08/16 13:30 Streptococcus pneumoniae Antigen (M - Final Complete Urine Catheterized Urine PRESUMPTIVE NEGATIVE FOR STREPTOCOCCU... Laboratory Tests Test 07/09/16 08:04 Blood Gas Puncture Site RT RADIAL Blood Gas Patient Temperature 98.6 Blood Gas HCO3 22 mmol/L (22-26) Blood Gas Base Excess -3.8 mmol/L (-2-2) Blood Gas Oxygen Saturation 90 % (90-100) Arterial Blood pH 7.28 (7.380-7.420) Arterial Blood Partial 48 mmHg (38-42) Pressure CO2 Arterial Blood Partial 71 mmHg Pressure O2 (61-120) Arterial Blood Oxygen Content 15.4 Vol % (12.0-20.0) Arterial Blood 0.9 % (0-4) Carboxyhemoglobin Arterial Blood Methemoglobin 1.6 % (0-2) Blood Gas Hemoglobin 12.1 G/DL (12.0-16.0) Oxygen Delivery Device VENTILATOR Blood Gas Ventilator Setting PRVC/AC Blood Gas Inspired Oxygen 100 % Imaging Last Impressions Chest X-Ray 07/08/16 0000 Signed Impressions: Service Date/Time: Friday, July 08, 2016 11:08 - CONCLUSION: 1. Endotracheal tube is present with tip measuring 5.7 cm from the farooq. 2. Severe diffuse left lung airspace consolidation, increased from yesterday's exam. There is also new mild consolidation versus atelectasis in the right midlung zone. Patel Palmer MD Abdomen/Pelvis CT 07/07/16 1110 Signed Impressions: Service Date/Time: Thursday, July 07, 2016 11:31 - CONCLUSION: 1. Renal stones and stents in good position as described above. Yosvany Fuentes MD FACR Chest CT 07/07/16 0000 Signed Impressions: Service Date/Time: Thursday, July 07, 2016 16:09 - CONCLUSION: 1. Consolidative changes in the left upper lobe. There is suspicious adenopathy in the mediastinum. This may be more than an inflammatory process. 2. Bronchoscopy may be the easiest way to make a diagnosis of a neoplastic process. Yosvany Fuentes MD FACR Objective Remarks GENERAL: Patient is 55 yo critically ill intubated and sedated. Now on Prone therapy SKIN: Warm and dry. HEAD: Normocephalic. EYES: No injection or drainage. NECK: Supple, trachea midline. Orally intubated CARDIOVASCULAR: Regular rate and rhythm without murmurs, gallops, or rubs. On 4 mcg/min of Levophed RESPIRATORY: Receiving prone therapy. Breath sounds equal bilaterally with rhonchi and crackles bilaterally. Predominantly left chest GASTROINTESTINAL: Abdomen soft, non-tender, nondistended. MUSCULOSKELETAL: No cyanosis, or edema. NEURO: Sedated, paralyzed for prone therapy Urinary Catheter: Yes Assessment to: Continue Vascular Central Line Catheter: Yes Assessment to: Continue A/P Assessment and Plan PROBLEM LIST Acute hypoxemic respiratory Septic shock ARDS Legionella. Pneumonia Acute kidney failure Acute metabolic encephalopathy. Urinary tract infection. History of renal calculi with bilateral ureteral stent placement in April. History of hypertension. Leukocytosis. Mild hyponatremia. Plan Neuro: -On Versed, Fentanyl infusion for sedation. Placed on Nimbex for neuromuscular paralysis -Continue with thiamine 100 mg daily. Continue close neuro monitoring Pulm: -Prone therapy for severe ARDS initiated yesterday -Continue 16 hours prone and then cycles of 8 hour prone, 1 hour supine if tolerated -Currently on PEEP 16, FiO2 70% -Bronchodilators, Solumederol 60mg Q8, pulm is following-Dr. Jaimes -ICU vent bundle, f/u CXR and ABG -Continue Flolan 50ng/kg/min neb solution at 8ml/hr CV: -Continue Levophed to keep map above 65 -Monitor HR and BP keep MAP>65mmHg. Lactic acid level measured at 1.4 -F/u 2D echo to eval LV function -Start careful hydration with normal saline at 75 mL per hour due to renal failure and sepsis : -Nephrology consult placed for worsening renal function. Start on gentle hydration with normal saline at 75 mL per hour -Consulted Urology service for hx flank pain and renal calculi with ureteral stent placement-CT abdomen pelvis showed stents in good position -Acute kidney failure could be related to severe sepsis and hypotension -Monitor renal function, Is and Os and electrolyte replacement as needed. GI: -On tube feeds- Glucerna 1.5@45ml/hr, Protonix 40mg IV daily for GI prophylaxis ID: -Continue with ABX per ID (Zyvox, Zithromax and Zosyn). Add Levaquin for additional Legionella coverage, discussed with Dr. Walsh -07/08 Legionella urinary antigen positive. -07/07 BC : [facility] 06/21 bottles-coag neg staph, probable contaminant Endo: -SSI with Accu-Chek q.6 hours for glycemic control Heme: -Monitor CBC. Proph: -GI prophylaxis with Protonix 40 mg daily and DVT prophylaxis with SCDs and heparin subcu. Lines: -Peripheral IV, L subclavian central line 07/09/16 Remains critically ill with severe ARDS from Legionella pneumonia. In addition patient has acute hypoxemic respiratory failure, severe sepsis with shock and acute renal failure. His prognosis is guarded at this time CCT 50 mins Jadiel Sweeney MD Jul 10, 2016 08:14
[2016-07-10] MEDS: SODIUM CHLOR 0.9% 1000 ML INJ 1,000 ML IV SCH ×2 (08:15→21:26)
[2016-07-10 09:09] LABS: BLOOD GAS BASE EXCESS -7.3 mmol/L (-2-2); BLOOD GAS HCO3 18 mmol/L (22-26); BLOOD GAS METHEMOGLOBIN 1.5 % (0-2); BLOOD GAS O2 HGB SATURATION 95 % (90-100); BLOOD GAS PCO2 42 mmHg (38-42); BLOOD GAS PO2 104 mmHg (61-120); BLOOD GAS TOTAL HGB 11.2 G/DL (12.0-16.0); TEMP CORR TO 98.6
[2016-07-10 09:10] LABS: CRITICAL VALUE YES; DRAW SITE ALINE; FIO2 70 %; OXYGEN DEVICE VENT; VENT SETTINGS PRVC/24/550/16PEEP
[2016-07-10 09:11] LABS: STAT YES
[2016-07-10] MEDS: CISATRACURIUM INJ 100 MG in SODIUM CHLOR 0.9% 250 ML INJ 240 ML IV SCH ×2 (10:06→21:24)
[2016-07-10] MEDS: LEVOFLOXACIN 750 MG PREMIX INJ 150 ML IV SCH (10:06)
--- NOTE | 2016-07-10 11:17 | HHI.IDPN ---
Subjective Subjective Remarks Mr. Ambrocio is a 55-year-old male with past medical history significant for renal calculi status post bilateral ureteral stent placements as well as hypertension who presented to the emergency department to bilateral flank pain for the past 3 days. He also had shortness of breath and chest discomfort on admission. Delayed entry seen at 9:30 am approx. ID following for sepsis, pneumonia, legionella antigen positive, possible legionellosis with secondary bacterial infection. Overnight events reviewed. Afebrile. Remains on rotaprone bed. No rash No diarrhea Remains intubated. CXR with bilateral diffuse infiltrates. CXR reviewed by me. Antibiotics Zosyn IV Zyvox IV Azithro IV Lines Line sites with no e/o infection Past Medical History reviewed. 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 Vital Signs Date Time Temp Pulse Resp B/P Pulse Ox O2 Delivery O2 Flow Rate FiO2 07/10/16 10:44 96 60 07/10/16 08:00 84 07/10/16 08:00 60 07/10/16 08:00 97.6 84 24 116/70 97 133/67 07/10/16 07:29 99 60 07/10/16 07:00 99 Mechanical Ventilator 60 07/10/16 06:00 85 07/10/16 05:35 70 07/10/16 05:34 99 70 07/10/16 04:00 99 80 07/10/16 04:00 80 07/10/16 04:00 97.9 86 24 100/56 97 125/66 07/10/16 04:00 88 07/10/16 03:52 80 07/10/16 02:00 104 07/10/16 02:00 90 07/10/16 01:17 99 90 07/10/16 00:00 107 07/10/16 00:00 100 07/09/16 22:11 99 100 07/09/16 22:00 90 07/09/16 20:00 98.8 99 24 102/58 91 100/57 07/09/16 20:00 102 07/09/16 20:00 100 07/09/16 19:35 97 100 07/09/16 19:00 98 Mechanical Ventilator 100 07/09/16 19:00 72/39 72/39 07/09/16 16:00 100 07/09/16 15:57 102.6 110 24 94/55 97 07/09/16 15:55 90 100 07/09/16 12:00 103.0 106 24 138/58 97 07/09/16 12:00 100 07/09/16 11:53 103.0 106 24 138/58 97 07/09/16 11:50 89 100 07/09/16 07/09/16 07/10/16 15:00 23:00 07:00 Intake Total 1484 ml 1320 ml 1403 ml Output Total 1400 ml 300 ml 200 ml Balance 84 ml 1020 ml 1203 ml IV Total 949 ml 1200 ml 1320 ml Tube Feeding 385 ml 83 ml Other 150 ml 120 ml Output Urine Total 1400 ml 300 ml 200 ml Stool Total 0 ml 0 ml . Laboratory Tests Test 07/09/16 07/10/16 03:59 04:35 White Blood Count 15.7 TH/MM3 16.1 TH/MM3 Red Blood Count 3.82 MIL/MM3 3.44 MIL/MM3 Hemoglobin 12.6 GM/DL 11.2 GM/DL Hematocrit 37.7 % 33.5 % Mean Corpuscular Volume 98.8 FL 97.4 FL Mean Corpuscular Hemoglobin 32.9 PG 32.6 PG Mean Corpuscular Hemoglobin 33.3 % 33.5 % Concent Red Cell Distribution Width 14.4 % 14.4 % Platelet Count 247 TH/MM3 278 TH/MM3 Mean Platelet Volume 8.3 FL 7.8 FL Neutrophils (%) (Auto) 84.3 % 93.3 % Lymphocytes (%) (Auto) 8.1 % 1.9 % Monocytes (%) (Auto) 7.3 % 4.6 % Eosinophils (%) (Auto) 0.1 % 0.0 % Basophils (%) (Auto) 0.2 % 0.2 % Neutrophils # (Auto) 13.2 TH/MM3 15.0 TH/MM3 Lymphocytes # (Auto) 1.3 TH/MM3 0.3 TH/MM3 Monocytes # (Auto) 1.1 TH/MM3 0.7 TH/MM3 Eosinophils # (Auto) 0.0 TH/MM3 0.0 TH/MM3 Basophils # (Auto) 0.0 TH/MM3 0.0 TH/MM3 CBC Comment DIFF FINAL DIFF FINAL Differential Comment Laboratory Tests Test 07/08/16 07/09/16 07/10/16 14:27 03:59 04:35 Lactic Acid Level 1.4 mmol/L 0.8 mmol/L Sodium Level 136 MEQ/L 135 MEQ/L Potassium Level 4.2 MEQ/L 4.0 MEQ/L Chloride Level 102 MEQ/L 102 MEQ/L Carbon Dioxide Level 21.5 MEQ/L 21.1 MEQ/L Anion Gap 13 MEQ/L 12 MEQ/L Blood Urea Nitrogen 35 MG/DL 53 MG/DL Creatinine 1.86 MG/DL 2.81 MG/DL Estimat Glomerular Filtration 38 ML/MIN 23 ML/MIN Rate Random Glucose 88 MG/DL 244 MG/DL Calcium Level 7.5 MG/DL 7.4 MG/DL Phosphorus Level 4.1 MG/DL 4.2 MG/DL Magnesium Level 2.1 MG/DL 2.6 MG/DL Protein Corrected Calcium 7.5 MG/DL Total Protein 7.0 GM/DL Microbiology Date/Time Procedure Status Source Growth 07/07/16 12:30 Urine Culture - Final Complete Urine Clean Catch NO GROWTH IN 48 HOURS. 07/07/16 13:10 Aerobic Blood Culture - Preliminary Resulted Blood Peripheral NO GROWTH IN 2 DAYS 07/07/16 13:10 Anaerobic Blood Culture - Preliminary Resulted Blood Peripheral NO GROWTH IN 2 DAYS 07/07/16 13:15 Aerobic Blood Culture - Preliminary Resulted Blood Peripheral Staph Sp Coagulase Negative 07/07/16 13:15 Anaerobic Blood Culture - Preliminary Resulted Blood Peripheral NO GROWTH IN 2 DAYS 07/07/16 13:15 Influenza Types A,B Antigen (NIVIA) - Final Complete Nasal Washing NEGATIVE FOR FLU A AND B ANTIGEN.... 07/07/16 14:35 Acid Fast Stain - Final Resulted Sputum Expectorated Sputum NO ACID FAST BACILLI SEEN 07/07/16 14:35 Mycobacterial Culture Resulted Sputum Expectorated Sputum Pending 07/07/16 17:35 Gram Stain - Final Resulted Sputum Expectorated Sputum 07/07/16 17:35 Sputum Culture - Preliminary Resulted Sputum Expectorated Sputum IMMATURE GROWTH - REINCUBATE 07/08/16 13:30 Legionella Antigen - Final Complete Urine Catheterized Urine Pos For Legionella Antigen 07/08/16 13:30 Streptococcus pneumoniae Antigen (M - Final Complete Urine Catheterized Urine PRESUMPTIVE NEGATIVE FOR STREPTOCOCCU... 07/08/16 16:20 Gram Stain - Final Resulted Sputum Endotracheal 07/08/16 16:20 Sputum Culture - Preliminary Resulted Sputum Endotracheal RESULTS PENDING 07/09/16 03:59 Aerobic Blood Culture Received Blood Peripheral Pending 07/09/16 03:59 Anaerobic Blood Culture Received Blood Peripheral Pending 07/09/16 04:10 Aerobic Blood Culture Resulted Blood Peripheral Pending 07/09/16 04:10 Anaerobic Blood Culture - Final Resulted Blood Peripheral QNS - SEE AEROBE REPORT Imaging Last Impressions Chest X-Ray 07/09/16 0000 Signed Impressions: Service Date/Time: Saturday, July 09, 2016 10:44 - CONCLUSION: Left subclavian central line tip is in the superior aspect of the SVC. No pneumothorax is visualized. Otherwise, stable exam. Patel Palmer MD Abdomen/Pelvis CT 07/07/16 1110 Signed Impressions: Service Date/Time: Thursday, July 07, 2016 11:31 - CONCLUSION: 1. Renal stones and stents in good position as described above. Yosvany Fuentes MD FACR Chest CT 07/07/16 0000 Signed Impressions: Service Date/Time: Thursday, July 07, 2016 16:09 - CONCLUSION: 1. Consolidative changes in the left upper lobe. There is suspicious adenopathy in the mediastinum. This may be more than an inflammatory process. 2. Bronchoscopy may be the easiest way to make a diagnosis of a neoplastic process. Yosvany Fuentes MD FACR Physical Exam GENERAL: Obese. In Rotaprone bed. Limited exam. Eyes edema, subconjunctival edema. SKIN: No rashes. Cool and dry. No areas of peripheral skin necrosis. HEAD: in head strap for rotaprone. ENT: Intubated. CARDIOVASCULAR: prone with straps. RESPIRATORY: Breath sounds diminished bilaterally posteriorly. GASTROINTESTINAL: Limited exam. MUSCULOSKELETAL: Limited no rash. NEUROLOGICAL: Sedated. Khan with bright red blood tinged urine. Psych could not be assessed IV line sites with no evidence of infection. Assessment & Plan Remarks Severe sepsis present on admission(criteria explained in history of present illness) Pneumonia present on admission (community acquired, atypical, possible component of healthcare associated pneumonia) Likely Legionella Pneumonia with ARDS at this point. At risk for aspiration during prone periods. Bilateral ureteral stents. Acute renal failure present on admission likely sepsis, AIN, ATN. Acute metabolic encephalopathy: likely secondary to sepsis Recommendations: Sputum cultures negative. Continue Zosyn IV Continue Zyvox IV Continue Azithromycin IV (will likely need 3 weeks or more) Continue Levaquin IV (will likely need 3 weeks or more) Follow cultures Follow clinically d/w RN d/w Critically ill. Time spent in excess of 40 mins. Critical thinking and decision making. D.w Micro and Clinical pharmacist. Brenda Walsh MD Jul 10, 2016 11:17 Brenda Walsh MD Jul 10, 2016 11:17
[2016-07-10] MEDS: AZITHROMYCIN INJ 500 MG in SODIUM CHLOR 0.9% 250 ML INJ 250 ML IV SCH (11:21)
--- NOTE | 2016-07-10 11:45 | RADRPT ---
EXAM DATE/TIME: 07/10/2016 09:12 [facility] COMPARISON: CHEST SINGLE AP, July 09, 2016, 10:44. INDICATIONS : Short of breath. MEDICAL HISTORY : Cardiovascular disease. Hypertension. SURGICAL HISTORY : None. ENCOUNTER: Initial ACUITY: 3 days PAIN SCORE: Non-responsive. LOCATION: Bilateral chest FINDINGS: The heart is mildly enlarged. There has been interval reinflation of the left lower lobe. There is co mplete consolidation of the left upper lobe. The ET tube is in good position. The left jugular line i s in good position. The bony structures are grossly intact. There is diffuse parenchymal infiltrate t hroughout the right apex. CONCLUSION: 1. Interval reinflation of the left lower lobe. 2. Dense consolidation/infiltrate involving the left upper lobe. 3. Patchy infiltrate seen in the right upper lobe. Mark Fuentes MD on July 10, 2016 at 11:43 Board Certified Radiologist. This report was verified electronically.
[2016-07-10] MEDS: ONDANSETRON HCL 4 MG/2 ML VIAL IV PRN (11:52)
--- NOTE | 2016-07-10 12:00 | PD.CONS ---
[facility] Service Nephrology Consult Requested By Reason for Consult Acute Renal Failure Primary Care Physician Abigail Chau MD History of Present Illness This is a 55 y/o male who is critically ill. We were consulted for renal management as his creatinine has been increasing over the past two days. He has a hx of renal stones with bilateral ureteral stent placement. Urology has evaluated during this admission. 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 His urine output has been dropping. Of note on 07/09 his blood pressure was 70/30s, MAP 50s per nursing. He has been on pressors since with weaning trials. He is a full code. (Chiquita Sher) Review of Systems ROS Limitations: Clinical Condition, Altered Mental Status, Unresponsive ( Chiquita Sher) Past Family Social History Allergies: Coded Allergies: Shellfish (Verified Allergy, Severe, HIVES, SWELLING, 07/07/16) Sulfa (Verified Allergy, Severe, HIVES, 07/07/16) *MDRO Multi-Drug Resistant Organism (Verified Adverse Reaction, Unknown, MRSA, 07/10/16) Hx MRSA per 07/08/16 Consultation Past Medical History HTN Renal calculi Diverticulitis Ureterolithiasis Chronic sinusitis H/o MRSA in nares Past Surgical History Bilateral ureteral stent placement Colovesicular fistula requiring a diverting colostomy, partial colectomy and eventual reanastomosis in 2007 Partial bladder removal Hernia repair Multiple sinus operations Reported Medications [Kapidex] 60 Mg PO DAILY Bupropion Hcl Xl (Bupropion HCl) 150 Mg Tab 150 Mg PO BID Zoloft (Sertraline HCl) 50 Mg Tab 150 Mg PO DAILY Active Ordered Medications Current Medications Medications (Trade) Dose Ordered Sig/Veronica Route Start Time Stop Time Status Last Admin (Tylenol) 650 mg Q4H PRN PO 07/07/16 17:00 07/09/16 13:08 (Zofran Inj) 4 mg Q6H PRN IV 07/07/16 16:00 07/08/16 02:02 (NS Flush) 2 ml UNSCH PRN FLUSH 07/07/16 16:00 07/10/16 07:55 (NS Flush) 2 ml BID FLUSH 07/07/16 21:00 07/10/16 07:55 (Narcan Inj) 0.4 mg UNSCH PRN IV 07/07/16 16:00 (Vitamin B1) 100 mg DAILY PO 07/07/16 17:00 07/10/16 07:53 (Theragran M Tab) 1 tab DAILY PO 07/07/16 17:00 07/12/16 16:59 07/10/16 07:53 ([place] 5-325 Mg) 1 tab Q4H PRN PO 07/07/16 17:00 ([place] 10-325 Mg) 1 tab Q4H PRN PO 07/07/16 17:00 07/08/16 05:03 Morphine Sulfate 4 mg 4 mg Q4HR PRN IV 07/07/16 16:00 07/08/16 12:30 (Zosyn 4.5 Gm Premix) 100 ml @ 200 mls/hr Q8H IV 07/07/16 22:00 07/10/16 06:19 (Lipitor) 80 mg HS PO 07/07/16 21:00 07/09/16 20:43 (Habitrol 21 Mg Patch.24 Hr) 1 patch DAILY TD 07/07/16 18:00 07/10/16 07:53 Miscellaneous Information 1 1 HS TD 07/07/16 21:00 07/08/16 21:00 Azithromycin 500 mg/Sodium Chloride 250 ml @ 250 mls/hr Q24H IV 07/08/16 12:00 07/10/16 11:21 (Diprivan 1000 Mg/100ml Inj) 100 ml @ 0 mls/hr TITRATE IV 07/08/16 11:15 (Protonix Inj) 40 mg DAILY IV PUSH 07/08/16 11:15 07/10/16 07:53 (D50w (Vial) Inj) 25 ml UNSCH PRN IV PUSH 07/08/16 11:15 (Glucagon Inj) 1 mg UNSCH PRN OTHER 07/08/16 11:15 Insulin Human Regular 1 1 Q6HR SQ 07/08/16 12:00 07/10/16 11:21 Midazolam HCl 100 ml @ 0 mls/hr TITRATE IV 07/08/16 20:45 07/10/16 10:06 (fentaNYL DRIP) 250 ml @ 0 mls/hr TITRATE IV 07/09/16 08:00 07/10/16 07:53 Methylprednisolone Sodium Succinate 60 mg 60 mg Q8HR IV PUSH 07/09/16 08:00 07/10/16 06:18 Epoprostenol Sodium 87.5 ml/ Sodium Chloride 100 ml @ 8 mls/hr Q8H NEB 07/09/16 11:00 07/10/16 07:55 Linezolid 300 ml @ 300 mls/hr Q12H IV 07/09/16 15:00 07/10/16 01:59 Cisatracurium Besylate 100 mg/ Sodium Chloride 250 ml @ 0 mls/hr TITRATE IV 07/09/16 16:00 07/10/16 10:06 Norepinephrine Bitartrate 250 ml @ 0 mls/hr TITRATE IV 07/09/16 23:45 07/10/16 01:56 Levofloxacin/ Dextrose 150 ml @ 100 mls/hr Q48H IV 07/10/16 08:00 07/10/16 10:06 (NS 1000 ml Inj) 1,000 ml @ 75 mls/hr [id number] IV 07/10/16 08:15 07/10/16 08:15 Family History Unable to obtain Social History Unable to obtain (Chiquita Sher) Physical Exam Vital Signs Vital Signs Date Time Temp Pulse Resp B/P Pulse Ox O2 Delivery O2 Flow Rate FiO2 07/10/16 10:44 96 60 07/10/16 08:00 84 07/10/16 08:00 60 07/10/16 08:00 97.6 84 24 116/70 97 133/67 07/10/16 07:29 99 60 07/10/16 07:00 99 Mechanical Ventilator 60 07/10/16 06:00 85 07/10/16 05:35 70 07/10/16 05:34 99 70 07/10/16 04:00 99 80 07/10/16 04:00 80 07/10/16 04:00 97.9 86 24 100/56 97 125/66 07/10/16 04:00 88 07/10/16 03:52 80 07/10/16 02:00 104 07/10/16 02:00 90 07/10/16 01:17 99 90 07/10/16 00:00 107 07/10/16 00:00 100 07/09/16 22:11 99 100 07/09/16 22:00 90 07/09/16 20:00 98.8 99 24 102/58 91 100/57 07/09/16 20:00 102 07/09/16 20:00 100 07/09/16 19:35 97 100 07/09/16 19:00 98 Mechanical Ventilator 100 07/09/16 19:00 72/39 72/39 07/09/16 16:00 100 07/09/16 15:57 102.6 110 24 94/55 97 07/09/16 15:55 90 100 07/09/16 12:00 103.0 106 24 138/58 97 07/09/16 12:00 100 07/09/16 11:53 103.0 106 24 138/58 97 07/09/16 11:50 89 100 Physical Exam Difficult to examine due to bed and positioning he is chemically sedated/paralyzed lungs: left bronchial sounds, rales, diminished right clear CV: S1/S2, regular rate, no murmurs Ext: no pedal edema clemens and rectal tube present Laboratory Laboratory Tests Test 07/10/16 07/10/16 04:35 08:58 White Blood Count 16.1 Red Blood Count 3.44 Hemoglobin 11.2 Hematocrit 33.5 Mean Corpuscular Volume 97.4 Mean Corpuscular Hemoglobin 32.6 Mean Corpuscular Hemoglobin 33.5 Concent Red Cell Distribution Width 14.4 Platelet Count 278 Mean Platelet Volume 7.8 Neutrophils (%) (Auto) 93.3 Lymphocytes (%) (Auto) 1.9 Monocytes (%) (Auto) 4.6 Eosinophils (%) (Auto) 0.0 Basophils (%) (Auto) 0.2 Neutrophils # (Auto) 15.0 Lymphocytes # (Auto) 0.3 Monocytes # (Auto) 0.7 Eosinophils # (Auto) 0.0 Basophils # (Auto) 0.0 CBC Comment DIFF FINAL Differential Comment Sodium Level 135 Potassium Level 4.0 Chloride Level 102 Carbon Dioxide Level 21.1 Anion Gap 12 Blood Urea Nitrogen 53 Creatinine 2.81 Estimat Glomerular Filtration 23 Rate Random Glucose 244 Lactic Acid Level 0.8 Calcium Level 7.4 Protein Corrected Calcium 7.5 Phosphorus Level 4.2 Magnesium Level 2.6 Total Protein 7.0 Blood Gas Puncture Site RICH Blood Gas Patient Temperature 98.6 Blood Gas HCO3 18 Blood Gas Base Excess -7.3 Blood Gas Oxygen Saturation 95 Arterial Blood pH 7.26 Arterial Blood Partial 42 Pressure CO2 Arterial Blood Partial 104 Pressure O2 Arterial Blood Oxygen Content 15.0 Arterial Blood 1.0 Carboxyhemoglobin Arterial Blood Methemoglobin 1.5 Blood Gas Hemoglobin 11.2 Oxygen Delivery Device VENT Blood Gas Ventilator Setting PRVC/24/550/16PEEP Blood Gas Inspired Oxygen 70 Date/Time Procedure Status Source Growth 07/09/16 04:10 Aerobic Blood Culture - Preliminary Resulted Blood Peripheral NO GROWTH IN 1 DAY 07/09/16 04:10 Anaerobic Blood Culture - Final Resulted Blood Peripheral QNS - SEE AEROBE REPORT 07/08/16 16:20 Gram Stain - Final Complete Sputum Endotracheal 07/08/16 16:20 Sputum Culture - Final Complete Sputum Endotracheal NO GROWTH IN 48 HOURS. 07/08/16 13:30 Legionella Antigen - Final Complete Urine Catheterized Urine Pos For Legionella Antigen 07/08/16 13:30 Streptococcus pneumoniae Antigen (M - Final Complete Urine Catheterized Urine PRESUMPTIVE NEGATIVE FOR STREPTOCOCCU... 07/07/16 14:35 Acid Fast Stain - Final Resulted Sputum Expectorated Sputum NO ACID FAST BACILLI SEEN 07/07/16 14:35 Mycobacterial Culture Resulted Sputum Expectorated Sputum Pending 07/07/16 13:15 Influenza Types A,B Antigen (NIVIA) - Final Complete Nasal Washing NEGATIVE FOR FLU A AND B ANTIGEN.... 07/07/16 12:30 Urine Culture - Final Complete Urine Clean Catch NO GROWTH IN 48 HOURS. (Chiquita Sher [facility]) Result Diagram: 07/10/16 0435 07/10/16 0435 Imaging Last 72 hours Impressions Chest X-Ray 07/09/16 0000 Signed Impressions: Service Date/Time: Saturday, July 09, 2016 10:44 - CONCLUSION: Left subclavian central line tip is in the superior aspect of the SVC. No pneumothorax is visualized. Otherwise, stable exam. Patel Palmer MD Chest X-Ray 07/09/16 0000 Signed Impressions: Service Date/Time: Saturday, July 09, 2016 08:23 - CONCLUSION: 1. Persistent severe diffuse left lung airspace consolidation with likely left pleural effusion. 2. Stable subtle airspace consolidation/opacity in the right midlung zone. Patel Palmer MD Chest X-Ray 07/08/16 0000 Signed Impressions: Service Date/Time: Friday, July 08, 2016 11:08 - CONCLUSION: 1. Endotracheal tube is present with tip measuring 5.7 cm from the farooq. 2. Severe diffuse left lung airspace consolidation, increased from yesterday's exam. There is also new mild consolidation versus atelectasis in the right midlung zone. Patel Palmer MD (Chiquita Sher) Assessment and Plan Problem List: (1) Acute renal failure Plan: His creatinine was 1.13 on 07/08 he became septic around that time with BP 70/30s, started on pressors JASON likely due to decreased renal perfusion he is non oliguric but has had a drop in urine production dont think the renal stone is contributing to renal failure, however urology is following and may perform lithotripsy if he recovers at this time monitor his renal function, if urine output drops he may require dialysis avoid known nephrotoxins maintain MAP > 65 mmHg continue IVF, NS @ 75cc/hr prognosis is guarded at this time, spoke with daughter (2) Sepsis Plan: due to legionella, ARDS he is on Zosyn, Zyvox, Zithromax, and Levaquin vancomycin has been discontinued reduce antimicrobials when possible ID following, monitor clinically (Chiquita Sher) Assessment and Plan patient was seen and examined. Patient with respiratory failure, left sided pneumonia, and effusion. Non oliguric, has bilateral ureteral stents. UA revealed proteinuria, and hematuria. Order serologies. Likely ATN, but will consider other possibilities. Monitor renal function, urine output and renal function. (Harvey Handley MD) Chiquita Sher Jul 10, 2016 12:00 Harvey Handley MD Jul 11, 2016 09:33
--- NOTE | 2016-07-10 12:19 | HHI.FPPN ---
Objective Vitals Vital Signs Date Time Temp Pulse Resp B/P Pulse Ox O2 Delivery O2 Flow Rate FiO2 07/10/16 12:00 85 117/68 114/61 07/10/16 12:00 60 07/10/16 12:00 97.6 85 24 117/68 9 117/64 07/10/16 12:00 85 07/10/16 10:44 96 60 07/10/16 10:00 81 07/10/16 08:00 84 116/70 132/68 07/10/16 08:00 84 07/10/16 08:00 60 07/10/16 08:00 97.6 84 24 116/70 97 133/67 07/10/16 07:29 99 60 07/10/16 07:00 99 Mechanical Ventilator 60 07/10/16 06:00 85 07/10/16 05:35 70 07/10/16 05:34 99 70 07/10/16 04:00 99 80 07/10/16 04:00 80 07/10/16 04:00 97.9 86 24 100/56 97 125/66 07/10/16 04:00 88 07/10/16 03:52 80 07/10/16 02:00 104 07/10/16 02:00 90 07/10/16 01:17 99 90 07/10/16 00:00 107 07/10/16 00:00 100 07/09/16 22:11 99 100 07/09/16 22:00 90 07/09/16 20:00 98.8 99 24 102/58 91 100/57 07/09/16 20:00 102 07/09/16 20:00 100 07/09/16 19:35 97 100 07/09/16 19:00 98 Mechanical Ventilator 100 07/09/16 19:00 72/39 72/39 07/09/16 16:00 100 07/09/16 15:57 102.6 110 24 94/55 97 07/09/16 15:55 90 100 I/O 07/09/16 07/09/16 07/09/16 07/10/16 07/10/16 07/10/16 07:00 15:00 23:00 07:00 15:00 23:00 Intake Total 331 ml 1484 ml 1320 ml 1403 ml Output Total 400 ml 1400 ml 300 ml 200 ml Balance -69 ml 84 ml 1020 ml 1203 ml IV Total 202 ml 949 ml 1200 ml 1320 ml Tube Feeding 129 ml 385 ml 83 ml Other 150 ml 120 ml Output Urine Total 400 ml 1400 ml 300 ml 200 ml Stool Total 0 ml 0 ml Result Diagram: 07/10/1643407/10/16434 Objective Remarks GEN: Well-developed, well-nourished patient. Sedated and intubated. CV: Regular rate and rhythm without obvious murmurs LUNGS: Coarse breath sounds bilaterally. Rhonchi more prominent on left versus right. GI: Soft, nontender, nondistended. No palpable masses. EXT: No edema. No calf tenderness. NEURO/PSYCH: Sedated A/P Assessment and Plan 55 year old male with h/o HTN, renal calculi, s/p bilateral ureteral stent placements presented due to bilateral flank pain more significant on the left x 3 days, admitted for left-sided pneumonia, sepsis, possible UTI. Critical care was consulted on 07/08 due to acute worsening of symptoms associated with respiratory distress. Neuro: Sedated due to intubation -On Versed, Fentanyl infusion for sedation. Pulm: Left pneumonia, severe ARDS, respiratory distress, COPD, suspicious adenopathy in the mediastinum Pulmonary consulted: appreciate recommendations * Will require bronchoscopic examination -ABG showing respiratory acidosis without compensation -Due to severe ARDS, will have patient in prone position Imaging: * CXR 07/09: Persistent severe diffuse left lung air space consolidation with likely left pleural effusion. Stable subtle airspace consolidation/opacity the in the right midlung * CXR 07/08: Endotracheal tube present. Severe diffuse left lung air space consolidation increased from the day prior. There is also new mild consolidative versus atelectasis in the right midlung zone * Chest CT: Consolidative changes in the left upper lobe. There is suspicious adenopathy in the mediastinum. This may be more than an inflammatory process * CXR 07/07: Extensive airspace disease throughout the left upper lobe characteristic of pneumonitis Medications: * Albuterol and Duonebs * Solu-Medrol, 60mg Q8 * Flolan 50ng/kg/min neb solution at 8ml/hr Cardiac: HLD, HTN but now hypotensive -ACS negative -Echo ordered -continued home atorvastatin -help home amlodipine : S/P bilateral ureteral stents, JASON Urology consulted: Appreciate recommendations * Once clinical picture improves, may remove stents versus attempted attempted ureteroscopy and laser lithotripsy * Will follow -Acute increase in creatinine. Fluids held due to potential fluid overload GI: -On tube feeds- Glucerna -Protonix 40mg IV daily for GI prophylaxis ID: Legionella pneumonia, leukocytosis, sepsis -Uptrending leukocytosis despite antibiotics -Continues to have recurrent fevers -Urine culture negative -1 of 2 blood culture on 07/07 positive for staph S/P coagulase-negative, likely due to contamination -Repeat blood cultures pending -Sputum culture pending ID consulted: Appreciate recommendations * If respiratory status continues to decline, consider CTA for evaluation of PE * Vancomycin 07/07- * Zosyn 07/07- * Azithromycin 07/08- Endo: SSI with Accu-Chek DVT prophylaxis: SCDs until after a line placement Discharge Planning Timetable unknown. Pending respiratory improvement. sdw Dr. Diallo Problem List: (1) Legionella pneumonia Status: Acute (2) Acute respiratory failure with hypoxia Status: Acute (3) Acute renal failure Status: Acute (4) Sepsis Status: Acute (5) COPD (chronic obstructive pulmonary disease) Status: Acute Matias Lewis MD R1 Jul 10, 2016 12:19
[2016-07-10] MEDS: METOCLOPRAMIDE HCL 10 MG/2 ML VIAL IV SCH ×2 (12:51→21:23)
--- NOTE | 2016-07-10 16:32 | EC ---
Study Study Date:07/10/2016 STUDY CONCLUSIONS SUMMARY - Left ventricle: The cavity size was normal. Wall thickness was increased increased in a pattern of mild to moderate LVH. Systolic function was normal. The estimated ejection fraction was 60%. Wall motion was normal; there were no regional wall motion abnormalities. - Mitral valve: Mild regurgitation. - Pulmonary arteries: Systolic pressure was mildly increased. PA peak pressure: 46mm Hg (S). If LV function is below 40, please consider prescribing an ACEI or ARB or document rationale for non-use. PROCEDURE DATA STUDY STATUS: Elective. Procedure: Transthoracic echocardiography. Image quality was good. Scanning was performed from the parasternal, apical, and subcostal acoustic windows. Study completion: The patient tolerated the procedure well. Transthoracic echocardiography. M-mode, complete 2D, complete spectral Doppler, and color Doppler. Patient status: Inpatient. CARDIAC ANATOMY LEFT VENTRICLE: The cavity size was normal. Wall thickness was increased increased in a pattern of mild to moderate LVH. Systolic function was normal. The estimated ejection fraction was 60%. Wall motion was normal; there were no regional wall motion abnormalities. AORTIC VALVE: Trileaflet; normal thickness leaflets. Doppler: Transvalvular velocity was within the normal range. There was no stenosis. No regurgitation. AORTA: Aortic root: The aortic root was normal in size. MITRAL VALVE: Structurally normal valve. Doppler: Transvalvular velocity was within the normal range. There was no evidence for stenosis. Mild regurgitation. LEFT ATRIUM: The atrium was normal in size. RIGHT VENTRICLE: The cavity size was normal. Wall thickness was normal. PULMONIC VALVE: Doppler: Transvalvular velocity was within the normal range. There was no evidence for stenosis. No regurgitation. TRICUSPID VALVE: Structurally normal valve. Doppler: Transvalvular velocity was within the normal range. Trace regurgitation. PULMONARY ARTERY: The main pulmonary artery was normal-sized. Systolic pressure was mildly increased. RIGHT ATRIUM: The atrium was normal in size. PERICARDIUM: There was no pericardial effusion. SYSTEMIC VEINS: Inferior vena cava: The vessel was normal in size. BASIC MEASUREMENTS ADULT Normal Left ventricle LV internal dimension, ED, chordal level, 45.3 mm 43-52 PLAX LV internal dimension, ES, chordal level, 32 mm 23-38 PLAX Fractional shortening, chordal level, PLAX *29 % >29 LV posterior wall thickness, ED 11.3 mm IVS/LVPW ratio, ED *1.34 <1.3 Ventricular septum Septal thickness, ED 15.1 mm Aortic valve Leaflet separation 19 mm 15-26 Right ventricle RV internal dimension, ED, PLAX 26.2 mm 19-38 BASIC MEASUREMENTS ADULT Normal Aortic valve Leaflet separation 19 mm 15-26 Aorta Root diameter, ED 34 mm 20-37 Left atrium Anterior-posterior dimension, ES 38 mm 19-40 LA/aortic root ratio 1.12 DOPPLER MEASUREMENTS ADULT Normal Main pulmonary artery Pressure, S *46 mm Hg =30 Tricuspid valve Regurgitant peak velocity 302 cm/s Peak RV-RA gradient, S 36 mm Hg Maximal regurgitant velocity 302 cm/s Systemic veins Estimated CVP 10 mm Hg Right ventricle RV pressure, S *46 mm Hg <30 LEGEND: Mean values are shown as u=mean value. Asterisk (*) mattson values outside specified normal range. Prepared and signed by Inez Tong [id number]
--- NOTE | 2016-07-10 17:46 | HHI.FPPN ---
Subjective Remarks Placed on prone therapy yesterday. Remains intubated on mech vent and on prone therapy. Episodes of fever yesterday up to 103.0F. 1900 mL of UOP over past 24 hours. (Matias Lewis MD R1) Objective Vitals Vital Signs Date Time Temp Pulse Resp B/P Pulse Ox O2 Delivery O2 Flow Rate FiO2 07/10/16 16:14 98 60 07/10/16 16:00 60 07/10/16 16:00 80 07/10/16 16:00 97.8 80 24 99/58 96 118/63 07/10/16 16:00 80 99/58 115/61 07/10/16 14:00 80 07/10/16 12:00 85 117/68 114/61 07/10/16 12:00 60 07/10/16 12:00 97.6 85 24 117/68 9 117/64 07/10/16 12:00 85 07/10/16 10:44 96 60 07/10/16 10:00 81 07/10/16 08:00 84 116/70 132/68 07/10/16 08:00 84 07/10/16 08:00 60 07/10/16 08:00 97.6 84 24 116/70 97 133/67 07/10/16 07:29 99 60 07/10/16 07:00 99 Mechanical Ventilator 60 07/10/16 06:00 85 07/10/16 05:35 70 07/10/16 05:34 99 70 07/10/16 04:00 99 80 07/10/16 04:00 80 07/10/16 04:00 97.9 86 24 100/56 97 125/66 07/10/16 04:00 88 07/10/16 03:52 80 07/10/16 02:00 104 07/10/16 02:00 90 07/10/16 01:17 99 90 07/10/16 00:00 107 07/10/16 00:00 100 07/09/16 22:11 99 100 07/09/16 22:00 90 07/09/16 20:00 98.8 99 24 102/58 91 100/57 07/09/16 20:00 102 07/09/16 20:00 100 07/09/16 19:35 97 100 07/09/16 19:00 98 Mechanical Ventilator 100 07/09/16 19:00 72/39 72/39 I/O 07/09/16 07/09/16 07/09/16 07/10/16 07/10/16 07/10/16 07:00 15:00 23:00 07:00 15:00 23:00 Intake Total 331 ml 1484 ml 1320 ml 1403 ml 1822 ml Output Total 400 ml 1400 ml 300 ml 200 ml 400 ml Balance -69 ml 84 ml 1020 ml 1203 ml 1422 ml IV Total 202 ml 949 ml 1200 ml 1320 ml 1702 ml Tube Feeding 129 ml 385 ml 83 ml 60 ml Other 150 ml 120 ml 60 ml Output Urine Total 400 ml 1400 ml 300 ml 200 ml 400 ml Stool Total 0 ml 0 ml 0 ml (Matias Lewis MD R1) Result Diagram: 07/10/1643407/10/16434 Objective Remarks GEN: Well-developed, well-nourished patient. Sedated and intubated on mech vent and prone therapy. CV: Unable to auscultate due to positioning with prone therapy LUNGS: Coarse breath sounds bilaterally. Rhonchi more prominent on left versus right. NEURO/PSYCH: Sedated (Matias Lewis MD R1) A/P Assessment and Plan 55 year old male with h/o HTN, renal calculi, s/p bilateral ureteral stent placements presented due to bilateral flank pain more significant on the left x 3 days, admitted for left-sided pneumonia, sepsis, possible UTI. Critical care was consulted on 07/08 due to acute worsening of symptoms associated with respiratory distress. Neuro: Sedated due to intubation -On Versed, Fentanyl infusion for sedation. -Placed on nimbex per critical care for neuromuscular paralysis Pulm: Left legionella pneumonia, severe ARDS, respiratory distress, COPD, suspicious adenopathy in the mediastinum Pulmonary consulted: appreciate recommendations * Will require bronchoscopic examination -ABG showing respiratory acidosis without compensation -Due to severe ARDS, will have patient in prone position -Currently on PEEP of 16, FiO2 of 60% Imaging: * CXR 07/10: Interval reinflation of the left lower lobe. Dense consolidation/ infiltrate involving the left upper lobe. Patchy infiltrate seen in the right upper lobe. * CXR 07/09: Persistent severe diffuse left lung air space consolidation with likely left pleural effusion. Stable subtle airspace consolidation/opacity the in the right midlung * CXR 07/08: Endotracheal tube present. Severe diffuse left lung air space consolidation increased from the day prior. There is also new mild consolidative versus atelectasis in the right midlung zone * Chest CT: Consolidative changes in the left upper lobe. There is suspicious adenopathy in the mediastinum. This may be more than an inflammatory process * CXR 07/07: Extensive airspace disease throughout the left upper lobe characteristic of pneumonitis Medications: * Albuterol and Duonebs * Solu-Medrol, 60mg Q8 * Flolan 50ng/kg/min neb solution at 8ml/hr Cardiac: HLD, HTN but now hypotensive -ACS negative -Echo: Mild to moderate LVH, normal systolic function, ejection fraction estimated to be 60%. No regional wall motion abnormalities. Mild mitral valve regurgitation. -Continue Levophed to keep MAP > 65 -Per critical care, careful hydration with NS @ 75 mL/hr due to renal failure and sepsis -continued home atorvastatin -help home amlodipine : S/P bilateral ureteral stents, JASON Urology consulted: Appreciate recommendations * Once clinical picture improves, may remove stents versus attempted attempted ureteroscopy and laser lithotripsy * Will follow -Acute increase in creatinine. Restarted fluids as above GI: -On tube feeds- Glucerna -Protonix 40mg IV daily for GI prophylaxis ID: Legionella pneumonia, leukocytosis, sepsis -Uptrending leukocytosis despite antibiotics -Continues to have recurrent fevers -Urine culture negative -1 of 2 blood culture on 07/07 positive for staph S/P coagulase-negative, likely due to contamination -Repeat blood cultures no growth after 1 day -Sputum culture no growth after 48 hours -Legionella antigen positive in urine ID consulted: Appreciate recommendations * Continue Zyvox IV * Vancomycin discontinued 07/07-07/09 * Zosyn started 07/07 * Azithromycin IV started 07/08. Will likely need 3 weeks or more * Levaquin IV started 07/10. Will likely need 3 weeks or more Endo: SSI with Accu-Chek DVT Prophylaxis - Heparin subq - SCDs GI Prophylaxis - Protonix 40 mg daily Discharge Planning Timetable unknown. Pending respiratory improvement. sdw Dr. Diallo ([facility] bates campusMatias MD R1) Assessment and Plan Patient was seen and examined with resident team. Case was discussed and reviewed with the resident team. Physician agrees with plan of care is discussed with me and documented in the resident note. (Armando Diallo MD) Problem List: (1) Legionella pneumonia Status: Acute (2) Acute respiratory failure with hypoxia Status: Acute (3) Acute renal failure Status: Acute (4) Sepsis Status: Acute (5) COPD (chronic obstructive pulmonary disease) Status: Acute (Matias Lewis MD R1) Matias Lewis MD R1 Jul 10, 2016 17:46 Armando Diallo MD Jul 11, 2016 13:33
[2016-07-10] MEDS: REMOVE OLD NICODERM (NICOTINE) PATCH TD SCH (21:00)
[2016-07-10] MEDS: ATORVASTATIN 80 MG TAB PO SCH (21:24)
--- NOTE | 2016-07-10 22:36 | EKG ---
Date Performed: 07/07/2016 Time Performed: 22:16:28 PTAGE: 55 years EKG: SINUS TACHYCARDIA ABNORMAL RHYTHM ECG PREVIOUS TRACING : 02/24/2008 13.18 Compared to the previous tracing, rate has increased DOCTOR: Niall Zhang Interpretating Date/Time 07/10/2016 22:35:21
[2016-07-11] VITALS (19 sets, daily range): BP systolic 90–148; BP diastolic 54–81; PULSE 74–96; RESP 24; TEMP 97.5–97.8; O2SAT 94–99
[2016-07-11] MEDS: EPOPROSTENOL NEB SOLUTION 50 NG/KG/MIN 100 ML NEB SCH ×6 (02:45→21:36)
[2016-07-11] MEDS: RESP: ALBUTEROL 2.5 MG/IPRATROPIUM 0.5 MG NEB (SCH) NEB ×4 (03:07→19:47)
[2016-07-11] MEDS: METOCLOPRAMIDE HCL 10 MG/2 ML VIAL IV SCH ×3 (03:22→20:01)
[2016-07-11] MEDS: LINEZOLID 600 MG PREMIX 300 ML IV SCH (03:23)
[2016-07-11 04:32] LABS: AUTOMATED NEUTROPHIL # 16.5 TH/MM3 (1.8-7.7); BASOPHIL % 0.2 % (0.0-2.0); HEMATOCRIT 32.8 % (39.0-51.0); HEMO FLAGS DIFF FINAL; LYMPHOCYTE # 0.3 TH/MM3 (1.0-4.8); MEAN CELL VOLUME 97.5 FL (80.0-100.0); MEAN CORPUSCULAR HEMOGLOBIN 32.6 PG (27.0-34.0); MEAN CORPUSCULAR HGB CONC 33.4 % (32.0-36.0); MONO % 3.9 % (0.0-8.0); NEUT % 93.9 % (16.0-70.0); PLATELET COUNT 294 TH/MM3 (150-450); RED BLOOD COUNT 3.37 MIL/MM3 (4.50-5.90); RED CELL DISTRIBUTION WIDTH 14.4 % (11.6-17.2); WHITE BLOOD COUNT 17.6 TH/MM3 (4.0-11.0)
[2016-07-11 04:48] LABS: POTASSIUM 3.8 MEQ/L (3.5-5.1)
[2016-07-11] MEDS: INSULIN NovoLIN REGULAR SUPPLEMENTAL SCALE SQ SCH ×4 (06:22→17:39)
[2016-07-11] MEDS: PIPERACIL-TAZO 4.5 GM PREMIX 100 ML IV SCH (06:22)
[2016-07-11] MEDS: methylPREDNISolone SOD SUCC 40 MG/1 ML VIAL IV PUSH SCH ×3 (06:22→21:37)
--- NOTE | 2016-07-11 06:51 | RADRPT ---
EXAM DATE/TIME: 07/11/2016 05:44 [facility] COMPARISON: CHEST SINGLE AP, July 10, 2016, 9:12. INDICATIONS : Short of breath. MEDICAL HISTORY : Cardiovascular disease. Hypertension. SURGICAL HISTORY : None. ENCOUNTER: Subsequent ACUITY: 4 - 6 days PAIN SCORE: Non-responsive. LOCATION: Bilateral chest FINDINGS: The support devices remain in place. There is no pneumothorax. There is a stable patchy infiltrate in the right upper lung. There is slight improved aeration of the consolidation in the left upper lung compared to the prior study. The heart size is stable. No pleural effusions. No definite pneumothorax . CONCLUSION: 1. Slight improved aeration of the consolidation in the left upper lung. 2. Stable infiltrate in the right upper lung. 3. No significant changes. Elgin Levin MD on July 11, 2016 at 6:48 Board Certified Radiologist. This report was verified electronically.
[2016-07-11] MEDS: PANTOPRAZOLE SODIUM 40 MG VIAL IV PUSH SCH (07:37)
[2016-07-11] MEDS: MIDAZOLAM 100 MG/NS 100 ML DRIP Premix IV SCH ×2 (07:37→17:16)
[2016-07-11] MEDS: MULTIVITAMINS/MINERALS THERAPEUTIC TAB PO SCH (07:37)
[2016-07-11] MEDS: SODIUM CHLORIDE 0.9% FLUSH 5 ML FLUSH FLUSH SCH ×2 (07:37→20:01)
[2016-07-11] MEDS: THIAMINE HCL 100 MG TAB PO SCH (07:37)
[2016-07-11] MEDS: NICOTINE 21 MG/24 HR PATCH TD SCH (07:37)
[2016-07-11] MEDS: SODIUM CHLOR 0.9% 1000 ML INJ 1,000 ML IV SCH (07:38)
--- NOTE | 2016-07-11 07:51 | HHI.FPPN ---
Subjective Remarks No acute events overnight. Pt has remained afebrile. No desaturations and MAP > 65. This morning patient remains sedated while on versed, midazolam, and fentanyl. Objective Vitals Vital Signs Date Time Temp Pulse Resp B/P Pulse Ox O2 Delivery O2 Flow Rate FiO2 07/11/16 05:26 97 60 07/11/16 04:00 97.7 84 24 105/64 98 130/65 07/11/16 04:00 84 07/11/16 04:00 60 07/11/16 04:00 84 105/64 138/69 07/11/16 03:01 98 60 07/11/16 02:00 79 07/11/16 00:00 97.8 76 24 95/55 99 125/66 07/11/16 00:00 60 07/11/16 00:00 76 95/55 125/66 07/11/16 00:00 76 07/10/16 23:21 100 60 07/10/16 22:00 82 07/10/16 20:46 99 60 07/10/16 20:00 83 07/10/16 20:00 60 07/10/16 20:00 83 121/79 121/65 07/10/16 20:00 97.8 83 24 121/79 96 121/65 07/10/16 19:00 99 Mechanical Ventilator 60 07/10/16 18:00 85 07/10/16 16:14 98 60 07/10/16 16:00 60 07/10/16 16:00 80 07/10/16 16:00 97.8 80 24 99/58 96 118/63 07/10/16 16:00 80 99/58 115/61 07/10/16 14:00 80 07/10/16 12:00 85 117/68 114/61 07/10/16 12:00 60 07/10/16 12:00 97.6 85 24 117/68 9 117/64 07/10/16 12:00 85 07/10/16 10:44 96 60 07/10/16 10:00 81 07/10/16 08:00 84 116/70 132/68 07/10/16 08:00 84 07/10/16 08:00 60 07/10/16 08:00 97.6 84 24 116/70 97 133/67 07/10/16 07:29 99 60 I/O 07/10/16 07/10/16 07/10/16 07/11/16 07/11/16 07/11/16 07:00 15:00 23:00 07:00 15:00 23:00 Intake Total 1403 ml 1822 ml 1282 ml 1444 ml Output Total 200 ml 400 ml 400 ml 450 ml Balance 1203 ml 1422 ml 882 ml 994 ml IV Total 1320 ml 1702 ml 1119 ml 1356 ml Tube Feeding 83 ml 60 ml 43 ml 88 ml Other 60 ml 120 ml Output Urine Total 200 ml 400 ml 400 ml 450 ml Stool Total 0 ml 0 ml 0 ml Result Diagram: 07/11/1640807/11/16408 Objective Remarks GEN: Well-developed, well-nourished patient. Diffuse facial swelling Sedated and intubated on mech vent, in prone bed but currently in the supine position. CV: Regular rate and rhythm without obvious murmurs or rubs. LUNGS: Improved air movement bilaterally. Clear bilaterally without obvious crackles or rubs, much improved. Extremities: bilateral LE swelling NEURO/PSYCH: Sedated A/P Assessment and Plan 55 year old male with h/o HTN, renal calculi, s/p bilateral ureteral stent placements presented due to bilateral flank pain more significant on the left x 3 days, admitted for left-sided pneumonia, sepsis, possible UTI. Critical care was consulted on 07/08 due to acute worsening of symptoms associated with respiratory distress. Neuro: Sedated due to intubation, acute metabolic encephalopathy -On Versed, Fentanyl, midazolam infusion for sedation. -Nimbex for neuromuscular paralysis -ABG showing metabolic acidosis -neuro checks Pulm: Left legionella pneumonia, severe ARDS, respiratory distress, COPD, suspicious adenopathy in the mediastinum -Prone position Pulmonary consulted: appreciate recommendations * Will require bronchoscopic examination -Due to severe ARDS, will have patient in prone position -Currently on PEEP of 14, FiO2 of 60% Imaging: * CXR 07/11: Slight improved aeration of the consolidation in the left upper lung. Stable infiltrate in the right upper lung. No significant changes * CXR 07/09: Persistent severe diffuse left lung air space consolidation with likely left pleural effusion. Stable subtle airspace consolidation/opacity the in the right midlung * Chest CT: Consolidative changes in the left upper lobe. There is suspicious adenopathy in the mediastinum. This may be more than an inflammatory process * CXR 07/07: Extensive airspace disease throughout the left upper lobe characteristic of pneumonitis Medications: * Albuterol and Duonebs * Solu-Medrol, 60mg Q8 * Flolan 50ng/kg/min neb solution at 8ml/hr Cardiac: HLD, HTN but now hypotensive -ACS negative -Echo: Mild to moderate LVH, normal systolic function, ejection fraction estimated to be 60%. No regional wall motion abnormalities. Mild mitral valve regurgitation. -Off Levophed as MAP >65 -continued home atorvastatin -hold home amlodipine : S/P bilateral ureteral stents, JASON -improved urine output but with continued elevated in Cr Urology consulted: Appreciate recommendations * Once clinical picture improves, may remove stents versus attempted attempted ureteroscopy and laser lithotripsy * Will follow Nephrology consulted: appreciate recommendations * JASON likely due to decreased renal perfusion * continue IVF NS @ 75 GI: -On tube feeds- Glucerna -Metoclopramide schedule q8 -Protonix 40mg IV daily for GI prophylaxis ID: Legionella pneumonia, leukocytosis, septic shock, -Uptrending leukocytosis despite antibiotics, may be due to steroids as well -Afebrile x24hrs -Legionella antigen positive in urine -1 of 2 blood culture on 07/07 positive for staph S/P coagulase-negative, likely due to contamination -Repeat blood cultures, sputum cultures, urine cx NGTD -urine eosinophils ordered, pending ID consulted: Appreciate recommendations * Zyvox 07/09- * Zosyn 07/07- * Azithromycin 07/08- * Levaquin 07/10- * Vancomycin 07/07-07/09, discontinued due to concern for drug fever and allegic interstitial nephritis * Hold on rifampin as FIO2 has improved with prone position Endo: SSI with Accu-Chek DVT Prophylaxis - Lovenox Discharge Planning Timetable unknown. Pending respiratory improvement. Prognosis guarded suhasw Dr. Sami peoplesw Dr. Diallo Problem List: (1) Legionella pneumonia Status: Acute (2) Acute respiratory failure with hypoxia Status: Acute (3) Acute renal failure Status: Acute (4) Sepsis Status: Acute (5) COPD (chronic obstructive pulmonary disease) Status: Acute Xiomara Rodas MD R2 Jul 11, 2016 07:51 Xiomara Rodas MD R2 Jul 11, 2016 07:51
[2016-07-11] MEDS ORDERED: ENOXAPARIN SODIUM 40 MG/0.4 ML SYRINGE SQ SCH (09:00)
[2016-07-11] MEDS: fentaNYL DRIP 250 ML IV SCH ×2 (10:06→22:29)
[2016-07-11] MEDS: AZITHROMYCIN INJ 500 MG in SODIUM CHLOR 0.9% 250 ML INJ 250 ML IV SCH (11:15)
--- NOTE | 2016-07-11 12:10 | HHI.CCPN ---
Subjective Remarks/Hospital Course The patient is a 55-year-old male with a past medical history of hypertension, renal calculi, status post bilateral ureteral stent placement in April, . He presented to [facility] ED with a three-day history of bilateral flank pain associated with fever and severe body aches. Just prior to admission, the patient had gross hematuria per his daughter and had decreased p.o. intake. The patient denied any shortness of breath or chest pain. Due to his abdominal pain, a CT scan of the abdomen and pelvis was obtained which showed renal stones and stent in place. An initial chest x-ray in the ED showed extensive airspace disease throughout the left upper lobe characteristic of pneumonia. He subsequently underwent a CT scan of the chest which showed consolidative changes in the left upper lobe along with suspicious adenopathy in the mediastinum. His initial creatinine level was 1.6 and the patient was placed on broad-spectrum antibiotics in addition to IV fluids. His laboratory data from today showed improvement of his renal function with a creatinine of 1.30 and lactic acid level measured at 1.0. [facility] was called for respiratory distress and the patient was a nonrebreather mask and transferred to [facility]. When seen in the ICU he was tachypneic, tachycardic and had a temperature of 103. The patient was subsequently intubated by myself and placed on full mechanical ventilation. A chest x-ray post intubation showed severe diffuse left lung airspace consolidation and a new mild consolation versus atelectasis in the right midlung zone. His nasal washing on arrival negative for influenza, and blood cultures and urine culture from yesterday showed no growth to date. The patient had a temperature of 102.8 earlier today. 07/09 Patient is sedated with versed, Fentanyl and intubated. Now on PRVC with RR 20, TV 550, IT:1, PEEP:15 and FIO2 100%. Afebrile. His Legionella urinary AG is positive. Renal function worse today with Cr 1.86 from 1.30 07/10: Patient remains very critical. Placed on Prone therapy yesterday for worsening respiratory status and severe hypoxia. Worsening renal function- creatinine increased from 1.8-2.8 today, urology following, will consult nephrology. Remains on 4 mics per minute of Levophed, urine output adequate 1.9 L in 24 hours. Currently on broad-spectrum antibiotics per ID on Zosyn and azithromycin Zyvox. I have added Levaquin for double coverage for Legionella 07/11: Remains intubated sedated. FiO2 at 50%. Chest x-ray shows bilaterally improving aeration. We'll reduce PEEP to 12. Urine output is adequate but creatinine has increased to 3. Objective Vital Signs Date Time Temp Pulse Resp B/P Pulse Ox O2 Delivery O2 Flow Rate FiO2 07/11/16 12:00 50 07/11/16 12:00 85 129/81 136/66 07/11/16 12:00 97.6 24 96 07/10/16 19:00 Mechanical Ventilator 07/08/16 10:41 15.00 Intake and Output 07/10/16 07/10/16 07/11/16 08:00 16:00 00:00 Intake Total 1403 ml 1822 ml 1282 ml Output Total 200 ml 400 ml 400 ml Balance 1203 ml 1422 ml 882 ml Result Diagram: 07/11/16 0409 07/11/16 0409 Other Results Microbiology Date/Time Procedure Status Source Growth 07/08/16 13:30 Legionella Antigen - Final Complete Urine Catheterized Urine Pos For Legionella Antigen 07/08/16 13:30 Streptococcus pneumoniae Antigen (M - Final Complete Urine Catheterized Urine PRESUMPTIVE NEGATIVE FOR STREPTOCOCCU... 07/08/16 16:20 Gram Stain - Final Complete Sputum Endotracheal 07/08/16 16:20 Sputum Culture - Final Complete Sputum Endotracheal NO GROWTH IN 48 HOURS. Imaging Last Impressions Chest X-Ray 07/08/16 0000 Signed Impressions: Service Date/Time: Friday, July 08, 2016 11:08 - CONCLUSION: 1. Endotracheal tube is present with tip measuring 5.7 cm from the farooq. 2. Severe diffuse left lung airspace consolidation, increased from yesterday's exam. There is also new mild consolidation versus atelectasis in the right midlung zone. Patel Palmer MD Abdomen/Pelvis CT 07/07/16 1110 Signed Impressions: Service Date/Time: Thursday, July 07, 2016 11:31 - CONCLUSION: 1. Renal stones and stents in good position as described above. Yosvany Fuentes MD FACR Chest CT 07/07/16 0000 Signed Impressions: Service Date/Time: Thursday, July 07, 2016 16:09 - CONCLUSION: 1. Consolidative changes in the left upper lobe. There is suspicious adenopathy in the mediastinum. This may be more than an inflammatory process. 2. Bronchoscopy may be the easiest way to make a diagnosis of a neoplastic process. Yosvany Fuentes MD FACR Objective Remarks GENERAL: Patient is 55 yo critically ill intubated and sedated. On Prone therapy SKIN: Warm and dry. HEAD: Normocephalic. EYES: No injection or drainage. NECK: Supple, trachea midline. Orally intubated CARDIOVASCULAR: Regular rate and rhythm without murmurs, gallops, or rubs. RESPIRATORY: Receiving prone therapy. Breath sounds equal bilaterally with rhonchi and crackles bilaterally. Predominantly left sided crackles GASTROINTESTINAL: Abdomen soft, non-tender, nondistended. MUSCULOSKELETAL: No cyanosis, or edema. NEURO: Sedated, paralyzed for prone therapy Urinary Catheter: Yes Assessment to: Continue Vascular Central Line Catheter: Yes Assessment to: Continue A/P Assessment and Plan PROBLEM LIST Acute hypoxemic respiratory Septic shock ARDS Legionella pneumonia Acute kidney failure Acute metabolic encephalopathy. Urinary tract infection. History of renal calculi with bilateral ureteral stent placement in April. History of hypertension. Leukocytosis. Mild hyponatremia. Plan Neuro: -On Versed, Fentanyl infusion for sedation. On Nimbex for neuromuscular paralysis -Continue with thiamine 100 mg daily. Continue close neuro monitoring Pulm: -Prone therapy for severe ARDS initiated 07/09/16 -Change to cycles of 4 hour prone, 1 hour supine if tolerated -Currently on PEEP 14, FiO2 50%. Reduce PEEP to 12 -Bronchodilators, Solumederol 60mg Q8, pulm is following-Dr. Jaimes -ICU vent bundle, f/u CXR and ABG -Continue Flolan 50ng/kg/min neb solution at 8ml/hr-start weaning Flolan in 24 hours CV: -Off Levophed. Monitor HR and BP keep MAP>65mmHg. Lactic acid level measured at 1.4 -F/u 2D echo to eval LV function -Hydration with normal saline at 75 mL per hour due to renal failure and sepsis : -Nephrology consulted for worsening renal function. Normal saline at [address] Handley following -Consulted Urology service for hx flank pain and renal calculi with ureteral stent placement-CT abdomen pelvis showed stents in good position -Acute kidney failure could be related to severe sepsis and hypotension -Monitor renal function, Is and Os and electrolyte replacement as needed. GI: -On tube feeds- Glucerna 1.5@20ml/hr, Protonix 40mg IV daily for GI prophylaxis -Bowel regimen with colace and senna -Continue Reglan ID: -Continue with ABX per ID (Zyvox, Zithromax and Zosyn). Added Levaquin for additional Legionella coverage 07/10/16, discussed with Dr. Walsh -07/08 Legionella urinary antigen positive. -07/07 BC : [facility] 06/21 bottles-coag neg staph, probable contaminant Endo: -SSI with Accu-Chek q.6 hours for glycemic control Heme: -Monitor CBC. Proph: -GI prophylaxis with Protonix 40 mg daily and DVT prophylaxis with SCDs and Lovenox subcu. Lines: -Peripheral IV, L subclavian central line 07/09/16 Remains critically ill with severe ARDS from Legionella pneumonia. In addition patient has acute hypoxemic respiratory failure, severe sepsis with shock and acute renal failure. His prognosis is guarded at this time CCT 50 mins Jadiel Sweeney MD Jul 11, 2016 12:10
[2016-07-11] MEDS ORDERED: SODIUM CHLOR 0.9% 1000 ML INJ 1,000 ML IV SCH (13:15)
[2016-07-11 13:38] LABS: BLOOD GAS BASE EXCESS -10.9 mmol/L (-2-2); BLOOD GAS CARBOXYHEMOGLOBIN 0.8 % (0-4); BLOOD GAS HCO3 16 mmol/L (22-26); BLOOD GAS METHEMOGLOBIN 1.5 % (0-2); BLOOD GAS O2 HGB SATURATION 95 % (90-100); BLOOD GAS OXYGEN CONTENT 15.8 Vol % (12.0-20.0); BLOOD GAS PCO2 40 mmHg (38-42); BLOOD GAS PO2 109 mmHg (61-120); BLOOD GAS TOTAL HGB 11.7 G/DL (12.0-16.0); TEMP CORR TO 98.6
[2016-07-11 13:39] LABS: CRITICAL VALUE YES; DRAW SITE ART LINE; FIO2 50 %; NUMBER OF ARTERIAL PUNCTURES 0; OXYGEN DEVICE VENTILATOR; ULNAR PULSE PRESENT; VENT SETTINGS PRVC/AC
[2016-07-11 13:40] LABS: STAT NO
[2016-07-11 14:15] LABS: TOTAL PROTEIN SPE 5.8 GM/DL (6.0-7.6)
[2016-07-11] MEDS: metroNIDAZOLE 500 MG TAB PO SCH ×2 (14:17→21:37)
[2016-07-11] MEDS ORDERED: SODIUM BICARBONATE 8.4% INJ 50 MEQ/50 ML SYR IV PUSH ONE (14:30)
[2016-07-11] MEDS: CEFEPIME INJ 2,000 MG in SODIUM CHLORIDE 0.9% INJ 100 ML IV SCH (15:01)
[2016-07-11] MEDS ORDERED: SODIUM BICARBONATE 8.4% INJ 75 MEQ in SODIUM CHLOR 0.9% 1000 ML INJ 1,000 ML IV SCH (16:00)
[2016-07-11] MEDS: CISATRACURIUM INJ 100 MG in SODIUM CHLOR 0.9% 250 ML INJ 240 ML IV SCH (16:27)
[2016-07-11 16:32] LABS: BLOOD GAS BASE EXCESS -8.1 mmol/L (-2-2); BLOOD GAS CARBOXYHEMOGLOBIN 0.6 % (0-4); BLOOD GAS HCO3 19 mmol/L (22-26); BLOOD GAS METHEMOGLOBIN 1.7 % (0-2); BLOOD GAS O2 HGB SATURATION 95 % (90-100); BLOOD GAS OXYGEN CONTENT 19.7 Vol % (12.0-20.0); BLOOD GAS PCO2 50 mmHg (38-42); BLOOD GAS PO2 111 mmHg (61-120); BLOOD GAS TOTAL HGB 14.7 G/DL (12.0-16.0); CRITICAL VALUE YES; OXYGEN DEVICE VENTILATOR; TEMP CORR TO 98.6
[2016-07-11 16:33] LABS: DRAW SITE ART LINE; FIO2 50 %; NUMBER OF ARTERIAL PUNCTURES 0; STAT NO; ULNAR PULSE PRESENT; VENT SETTINGS RPVC/AC
[2016-07-11] MEDS ORDERED: SODIUM BICARBONATE 8.4% INJ 50 ML ONE (16:38)
[2016-07-11] MEDS ORDERED: SODIUM BICARBONATE 8.4% SOLN 50 MEQ/50 ML VIAL IVP ONE (16:40)
--- NOTE | 2016-07-11 16:45 | HHI.NPPN ---
Subjective Renal Failure: Acute Interval History Seen around 0930 today. Remains on rotoprone bed intubated, sedated, and chemically paralyzed. His creatinine is worse but has maintained a good urine output. (Chiquita Sher) Review of Systems General General Remarks unable to obtain due to intubation/sedation (Chiquita Sher) Objective Data Data 07/10/16 07/11/16 19:00 07:00 Intake Total 1822 ml 2726 ml Output Total 400 ml 850 ml Balance 1422 ml 1876 ml IV Total 1702 ml 2475 ml Tube Feeding 60 ml 131 ml Other 60 ml 120 ml Output Urine Total 400 ml 850 ml Stool Total 0 ml 0 ml Vital Signs Date Time Temp Pulse Resp B/P Pulse Ox O2 Delivery O2 Flow Rate FiO2 07/11/16 16:24 97 50 07/11/16 16:00 74 90/54 110/56 07/11/16 16:00 74 07/11/16 16:00 97.5 74 24 90/54 95 110/56 07/11/16 16:00 50 07/11/16 14:00 76 07/11/16 12:25 94 50 07/11/16 12:00 50 07/11/16 12:00 85 129/81 136/66 07/11/16 12:00 97.6 85 24 129/81 96 136/66 07/11/16 12:00 85 07/11/16 10:21 95 50 07/11/16 10:00 77 07/11/16 08:00 97.6 82 24 112/65 94 131/65 07/11/16 08:00 82 112/65 131/65 07/11/16 08:00 82 07/11/16 08:00 50 07/11/16 07:26 96 50 07/11/16 05:26 97 60 07/11/16 04:00 97.7 84 24 105/64 98 130/65 07/11/16 04:00 84 07/11/16 04:00 60 07/11/16 04:00 84 105/64 138/69 07/11/16 03:01 98 60 07/11/16 02:00 79 07/11/16 00:00 97.8 76 24 95/55 99 125/66 07/11/16 00:00 60 07/11/16 00:00 76 95/55 125/66 07/11/16 00:00 76 07/10/16 23:21 100 60 07/10/16 22:00 82 07/10/16 20:46 99 60 07/10/16 20:00 83 07/10/16 20:00 60 07/10/16 20:00 83 121/79 121/65 07/10/16 20:00 97.8 83 24 121/79 96 121/65 07/10/16 19:00 99 Mechanical Ventilator 60 07/10/16 18:00 85 (Chiquita Sher) -: 07/11/16 0409 07/11/16 0409 Additional Information vent settings: A/C, 24/550/50%/ PEEP 14 Tubes & Lines: Khan Tubes & Lines Comment NG tube, A line Drip Comment Nimbex, flolan, fentanyl, versed (Chiquita Sher) Physical Exam General Appearance: Well Developed Appearance Remarks difficult to examine due to rotoprone bed/positioning (Chiquita Sher) Eyes Eye Exam: Pupils Equal (Chiquita Sher) Ears & Nose Ears & Nose Remarks facial edema (Chiquita Sher) Neck Neck Exam: Neck Supple (Chiquita Sher) Pulmonary Resp Exam: Decreased Bases Resp Remarks right lung diminished lung sounds, no wheezing, bronchial left lung sounds with scattered rales (Chiquita Sher) Cardiology CV Exam: Regular, Normal Sinus Rhythm (Chiquita Sher) Gastrointestinal/Abdomen GI Exam: Soft, Non-Tender (Chiquita Sher) Musculoskeletal MS Exam: Joints Intact (Chiquita Sher) Integumentary Skin Exam: Dry, Intact (Chiquita Sher) Extremeties Extremities Exam: Pedal Pulses Palpable (Chiquita Sher) Neurologic Neuro Exam: Unresponsive, Sedated (Chiquita Sher) Assessment/Plan Discussed Condition With: Daughter Assessment Summary: JASON/Acute Renal Failure, Fluid/Volume Overload Problem List: (1) Acute renal failure Plan: His creatinine was 1.13 on 07/08 he became septic around that time with BP 70/30s, started on pressors JASON due to decreased renal perfusion, possibly AIN, or ATN he is non oliguric but creatinine has increased has proteinuria, quantification and serologies with complement levels ordered I/O measurement showing positive 6 liters fluid balance, will stop IVF and monitor response continue pressors if needed to maintain MAP > 65 mmHg at this time monitor his renal function, if urine output drops he may require dialysis had a discussion with the daughter about indications and expectations it would be difficult given his rotoprone bed/positioning avoid known nephrotoxins (2) Sepsis Plan: due to legionella, ARDS he is on Zosyn, Zyvox, Zithromax, and Levaquin blood cx negative, also new left Pneumonia reduce antimicrobials when possible ID following, monitor clinically (3) Left flank pain Plan: with non obstructing stone s/p previous bilateral ureteral stent placement, may need lithotripsy and stent removal in future urology has evaluated (4) Hypocalcemia Plan: check PTH, vit D (Chiquita Sher) Plan patient was seen and examined. Decline in GFR, non oliguric. No immediate need for dialysis. Corrected calcium is normal. (Harvey Handley MD) Chiquita Sher Jul 11, 2016 16:44 Harvey Handley MD Jul 12, 2016 07:48
[2016-07-11 17:34] LABS: TOTAL BILIRUBIN ADULT 0.3 MG/DL (0.2-1.0)
[2016-07-11 17:53] LABS: BLOOD GAS BASE EXCESS -4.2 mmol/L (-2-2); BLOOD GAS CARBOXYHEMOGLOBIN 0.9 % (0-4); BLOOD GAS HCO3 22 mmol/L (22-26); BLOOD GAS METHEMOGLOBIN 1.7 % (0-2); BLOOD GAS O2 HGB SATURATION 92 % (90-100); BLOOD GAS OXYGEN CONTENT 15.8 Vol % (12.0-20.0); BLOOD GAS PCO2 52 mmHg (38-42); BLOOD GAS PO2 85 mmHg (61-120); BLOOD GAS TOTAL HGB 12.1 G/DL (12.0-16.0); TEMP CORR TO 98.6
[2016-07-11 17:54] LABS: CRITICAL VALUE YES; DRAW SITE ART LINE; FIO2 50 %; NUMBER OF ARTERIAL PUNCTURES 0; OXYGEN DEVICE VENTILATOR; STAT NO; ULNAR PULSE PRESENT; VENT SETTINGS PRVC/AC
[2016-07-11] MEDS: SODIUM BICARBONATE 8.4% INJ 75 MEQ in SODIUM CHLOR 0.9% 1000 ML INJ 1,000 ML IV SCH (18:15)
[2016-07-11] MEDS: ARTIFICIAL TEARS OPTH OINT 3.5 APPLIC/3.5 GM TUBO EACH EYE SCH (18:27)
[2016-07-11] MEDS: ATORVASTATIN 80 MG TAB PO SCH (20:01)
[2016-07-11] MEDS: DOCUSATE SODIUM 100 MG/10 ML UDC OG SCH (20:01)
[2016-07-11] MEDS: SENNOSIDES SYRUP 8.8 MG/5 ML CUP OG SCH (20:01)
[2016-07-11] MEDS: REMOVE OLD NICODERM (NICOTINE) PATCH TD SCH (21:00)
[2016-07-11 22:29] LABS: ALBUMIN SPE 2.08 GM/DL (3.50-5.00); ALPHA 1 GLOBULIN 0.6 GM/DL (0.11-0.29); ALPHA 2 GLOBULIN 1.54 GM/DL (0.22-1.00); BETA GLOBULINS (SPE) 0.88 GM/DL (0.53-1.03)
[2016-07-12] VITALS (20 sets, daily range): BP systolic 128–188; BP diastolic 54–98; PULSE 69–101; RESP 18–24; TEMP 97.3–97.9; O2SAT 92–98
[2016-07-12] MEDS: RESP: ALBUTEROL 2.5 MG/IPRATROPIUM 0.5 MG NEB (SCH) NEB ×5 (03:14→23:20)
[2016-07-12] MEDS: MIDAZOLAM 100 MG/NS 100 ML DRIP Premix IV SCH ×3 (03:29→23:01)
[2016-07-12 04:15] LABS: AUTOMATED NEUTROPHIL # 17.1 TH/MM3 (1.8-7.7); BASOPHIL % 0.2 % (0.0-2.0); LYMPH % 1.4 % (9.0-44.0); LYMPHOCYTE # 0.3 TH/MM3 (1.0-4.8); MEAN CELL VOLUME 97.1 FL (80.0-100.0); MEAN CORPUSCULAR HEMOGLOBIN 32.4 PG (27.0-34.0); MEAN CORPUSCULAR HGB CONC 33.4 % (32.0-36.0); MONO % 5.8 % (0.0-8.0); NEUT % 92.6 % (16.0-70.0); PLATELET COUNT 360 TH/MM3 (150-450); RED CELL DISTRIBUTION WIDTH 14.5 % (11.6-17.2); WHITE BLOOD COUNT 18.4 TH/MM3 (4.0-11.0)
[2016-07-12 04:16] LABS: HEMO FLAGS AUTO DIFF
[2016-07-12] MEDS: CISATRACURIUM INJ 100 MG in SODIUM CHLOR 0.9% 250 ML INJ 240 ML IV SCH ×2 (04:23→20:52)
[2016-07-12 04:46] LABS: ALKALINE PHOSPHATASE 92 U/L (45-117); ALT (GPT) 54 U/L (12-78); ANION GAP 8 MEQ/L (5-15); AST (GOT) 71 U/L (15-37); BICARBONATE 25.6 MEQ/L (21.0-32.0); BLOOD UREA NITROGEN 79 MG/DL (7-18); CHLORIDE 109 MEQ/L (98-107); GLOMERULAR FILTRATION RATE 20 ML/MIN (>89); MAGNESIUM 2.9 MG/DL (1.5-2.5); POTASSIUM 4.2 MEQ/L (3.5-5.1); SODIUM (NA) 143 MEQ/L (136-145); TOTAL BILIRUBIN ADULT 0.3 MG/DL (0.2-1.0)
[2016-07-12] MEDS: metroNIDAZOLE 500 MG TAB PO SCH ×3 (05:03→20:51)
[2016-07-12] MEDS: methylPREDNISolone SOD SUCC 40 MG/1 ML VIAL IV PUSH SCH ×2 (05:03→17:26)
[2016-07-12] MEDS: METOCLOPRAMIDE HCL 10 MG/2 ML VIAL IV SCH ×3 (05:03→20:51)
[2016-07-12] MEDS: INSULIN NovoLIN REGULAR SUPPLEMENTAL SCALE SQ SCH ×5 (05:04→23:43)
--- NOTE | 2016-07-12 05:34 | RADRPT ---
EXAM DATE/TIME: 07/12/2016 03:52 [facility] COMPARISON: CHEST SINGLE AP, July 11, 2016, 5:44. INDICATIONS : Respiratory distress. MEDICAL HISTORY : Cardiovascular disease. Hypertension. SURGICAL HISTORY : None. ENCOUNTER: Subsequent ACUITY: 4 - 6 days PAIN SCORE: Non-responsive. LOCATION: Bilateral chest FINDINGS: The support devices remain in place. No pneumothorax. There continue to be scattered bilateral pulmon tosha infiltrates, left greater than right. The infiltrates are about the same compared to the prior ex am. No definite pleural effusions. Heart size is stable. Bony structures are stable. CONCLUSION: Bilateral scattered pulmonary infiltrates about the same compared to the prior exam, left greater pravin n right. Elgin Levin MD on July 12, 2016 at 5:31 Board Certified Radiologist. This report was verified electronically.
[2016-07-12] MEDS: SODIUM BICARBONATE 8.4% INJ 75 MEQ in SODIUM CHLOR 0.9% 1000 ML INJ 1,000 ML IV SCH (06:33)
[2016-07-12] MEDS: EPOPROSTENOL NEB SOLUTION 50 NG/KG/MIN 100 ML NEB SCH ×2 (06:35)
[2016-07-12 07:10] LABS: BANDS 9 % (0-6); METAMYELOCYTES 1 % (0-1); MYELOCYTES 1 % (0-0); NEUTROPHIL # MANUAL DIFF 17.5 TH/MM3 (1.8-7.7); POLYS (SEG NEUTROPHILS) 84 % (16-70); WBC DIFF SAMPLE 100
[2016-07-12 07:11] LABS: PLATELET ESTIMATE SMEAR NORMAL (NORMAL); PLATELET MORPHOLOGY NORMAL (NORMAL); SCAN/DIFF FINAL DIFF MANUAL
[2016-07-12] MEDS: SODIUM CHLORIDE 0.9% FLUSH 5 ML FLUSH FLUSH SCH ×2 (07:31→20:52)
[2016-07-12] MEDS: LEVOFLOXACIN 750 MG PREMIX INJ 150 ML IV SCH (07:31)
[2016-07-12] MEDS: fentaNYL DRIP 250 ML IV SCH ×2 (07:31→18:26)
[2016-07-12] MEDS: NICOTINE 21 MG/24 HR PATCH TD SCH (07:32)
[2016-07-12] MEDS: ACETAMINOPHEN/HYDROcodone 325 MG/10 MG TAB PO PRN (07:32)
[2016-07-12] MEDS: DOCUSATE SODIUM 100 MG/10 ML UDC OG SCH ×2 (07:33→20:51)
[2016-07-12] MEDS: SENNOSIDES SYRUP 8.8 MG/5 ML CUP OG SCH ×2 (07:33→20:51)
[2016-07-12] MEDS: MULTIVITAMINS/MINERALS THERAPEUTIC TAB PO SCH (07:33)
[2016-07-12] MEDS: THIAMINE HCL 100 MG TAB PO SCH (07:33)
[2016-07-12] MEDS: PANTOPRAZOLE SODIUM 40 MG VIAL IV PUSH SCH (07:33)
[2016-07-12] MEDS: ONDANSETRON HCL 4 MG/2 ML VIAL IV PUSH SCH (07:33)
[2016-07-12] MEDS: ENOXAPARIN SODIUM 30 MG/0.3 ML SYRINGE SQ SCH (07:33)
[2016-07-12] MEDS: ARTIFICIAL TEARS OPTH OINT 3.5 APPLIC/3.5 GM TUBO EACH EYE SCH ×2 (07:34→20:54)
[2016-07-12 07:49] LABS: BLOOD GAS BASE EXCESS -3.1 mmol/L (-2-2); BLOOD GAS CARBOXYHEMOGLOBIN 0.9 % (0-4); BLOOD GAS HCO3 23 mmol/L (22-26); BLOOD GAS METHEMOGLOBIN 1.5 % (0-2); BLOOD GAS O2 HGB SATURATION 94 % (90-100); BLOOD GAS OXYGEN CONTENT 18.6 Vol % (12.0-20.0); BLOOD GAS PCO2 54 mmHg (38-42); BLOOD GAS PO2 97 mmHg (61-120); BLOOD GAS TOTAL HGB 14.1 G/DL (12.0-16.0); CRITICAL VALUE YES; OXYGEN DEVICE VENTILATOR; TEMP CORR TO 98.6
[2016-07-12 07:50] LABS: DRAW SITE ART LINE; FIO2 50 %; STAT YES; VENT SETTINGS SEE COMMENTS
[2016-07-12] MEDS ORDERED: SODIUM BICARBONATE 8.4% INJ 50 MEQ/50 ML SYR IV PUSH ONE (08:45)
[2016-07-12] MEDS ORDERED: MAGNESIUM CITRATE SOLN 300 ML BTL PO ONE (08:45)
--- NOTE | 2016-07-12 08:57 | HHI.IDPN ---
Subjective Subjective Remarks Delayed entry note for patient seen on 07/11/16. Note written in error initially on 07/10/16 but now being corrected. Mr. Ambrocio is a 55-year-old male with past medical history significant for renal calculi status post bilateral ureteral stent placements as well as hypertension who presented to the emergency department to bilateral flank pain for the past 3 days. He also had shortness of breath and chest discomfort on admission. Delayed entry seen at 9:30 am approx. ID following for sepsis, pneumonia, legionella antigen positive, possible legionellosis with secondary bacterial infection. Overnight events reviewed. Afebrile. Remains on rotaprone bed. No rash No diarrhea Remains intubated. CXR with bilateral diffuse infiltrates. CXR reviewed by me. Antibiotics Zosyn IV Zyvox IV Azithro IV Lines Line sites with no e/o infection Past Medical History reviewed. 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 Vital Signs Date Time Temp Pulse Resp B/P Pulse Ox O2 Delivery O2 Flow Rate FiO2 07/12/16 08:00 50 07/12/16 07:31 98 50 07/12/16 06:00 87 07/12/16 04:03 96 50 07/12/16 04:00 50 07/12/16 04:00 97.9 91 24 146/90 97 154/70 07/12/16 04:00 91 07/12/16 04:00 91 146/90 154/70 07/12/16 02:00 88 07/12/16 01:05 97 50 07/12/16 00:00 89 07/12/16 00:00 50 07/12/16 00:00 97.3 89 24 128/74 98 141/54 07/12/16 00:00 89 128/74 141/54 07/11/16 22:15 96 50 07/11/16 22:00 96 07/11/16 20:00 97.6 84 24 132/78 97 148/73 07/11/16 20:00 84 07/11/16 20:00 84 132/78 148/73 07/11/16 20:00 50 07/11/16 19:40 97 50 07/11/16 18:00 96 07/11/16 16:24 97 50 07/11/16 16:00 74 90/54 110/56 07/11/16 16:00 74 07/11/16 16:00 97.5 74 24 90/54 95 110/56 07/11/16 16:00 50 07/11/16 14:00 76 07/11/16 12:25 94 50 07/11/16 12:00 50 07/11/16 12:00 85 129/81 136/66 07/11/16 12:00 97.6 85 24 129/81 96 136/66 07/11/16 12:00 85 07/11/16 10:21 95 50 07/11/16 10:00 77 07/11/16 07/11/16 07/12/16 15:00 23:00 07:00 Intake Total 1635 ml 1425 ml 1430 ml Output Total 500 ml 545 ml 700 ml Balance 1135 ml 880 ml 730 ml IV Total 1237 ml 1230 ml 1203 ml Tube Feeding 158 ml 135 ml 107 ml Tube Irrigant 60 ml 120 ml Other 240 ml Output Urine Total 500 ml 525 ml 700 ml Stool Total 20 ml 0 ml . Laboratory Tests Test 07/11/16 07/12/16 04:09 03:20 White Blood Count 17.6 TH/MM3 18.4 TH/MM3 Red Blood Count 3.37 MIL/MM3 3.50 MIL/MM3 Hemoglobin 11.0 GM/DL 11.3 GM/DL Hematocrit 32.8 % 34.0 % Mean Corpuscular Volume 97.5 FL 97.1 FL Mean Corpuscular Hemoglobin 32.6 PG 32.4 PG Mean Corpuscular Hemoglobin 33.4 % 33.4 % Concent Red Cell Distribution Width 14.4 % 14.5 % Platelet Count 294 TH/MM3 360 TH/MM3 Mean Platelet Volume 7.7 FL 8.2 FL Neutrophils (%) (Auto) 93.9 % 92.6 % Lymphocytes (%) (Auto) 2.0 % 1.4 % Monocytes (%) (Auto) 3.9 % 5.8 % Eosinophils (%) (Auto) 0.0 % 0.0 % Basophils (%) (Auto) 0.2 % 0.2 % Neutrophils # (Auto) 16.5 TH/MM3 17.1 TH/MM3 Lymphocytes # (Auto) 0.3 TH/MM3 0.3 TH/MM3 Monocytes # (Auto) 0.7 TH/MM3 1.1 TH/MM3 Eosinophils # (Auto) 0.0 TH/MM3 0.0 TH/MM3 Basophils # (Auto) 0.0 TH/MM3 0.0 TH/MM3 CBC Comment DIFF FINAL AUTO DIFF Differential Comment FINAL DIFF MANUAL Differential Total Cells 100 Counted Neutrophils % (Manual) 84 % Band Neutrophils % 9 % Lymphocytes % 2 % Monocytes % 3 % Neutrophils # (Manual) 17.5 TH/MM3 Metamyelocytes 1 % Myelocytes 1 % Platelet Estimate NORMAL Platelet Morphology Comment NORMAL Red Cell Morphology Comment Laboratory Tests Test 07/11/16 07/11/16 07/12/16 04:09 13:05 03:20 Sodium Level 139 MEQ/L 143 MEQ/L Potassium Level 3.8 MEQ/L 4.2 MEQ/L Chloride Level 105 MEQ/L 109 MEQ/L Carbon Dioxide Level 21.0 MEQ/L 25.6 MEQ/L Anion Gap 13 MEQ/L 8 MEQ/L Blood Urea Nitrogen 64 MG/DL 79 MG/DL Creatinine 3.12 MG/DL 3.21 MG/DL Estimat Glomerular Filtration 21 ML/MIN 20 ML/MIN Rate Random Glucose 179 MG/DL 148 MG/DL Calcium Level 7.7 MG/DL 7.5 MG/DL Total Bilirubin 0.3 MG/DL 0.3 MG/DL Direct Bilirubin 0.3 MG/DL Indirect Bilirubin 0.0 MG/DL Aspartate Amino Transf 76 U/L 71 U/L (AST/SGOT) Alanine Aminotransferase 51 U/L 54 U/L (ALT/SGPT) Alkaline Phosphatase 83 U/L 92 U/L Total Protein 6.5 GM/DL 5.8 GM/DL 6.6 GM/DL Albumin 1.8 GM/DL 2.08 GM/DL 1.8 GM/DL Albumin/Globulin Ratio 0.56 Zsdzr-2-Lstvxebaf 0.60 GM/DL Aojqu-9-Iwozhhwdg 1.54 GM/DL Beta Globulins 0.88 GM/DL Gamma Globulins 0.70 GM/DL Phosphorus Level 5.0 MG/DL Magnesium Level 2.9 MG/DL Imaging Last Impressions Chest X-Ray 07/09/16 0000 Signed Impressions: Service Date/Time: Saturday, July 09, 2016 10:44 - CONCLUSION: Left subclavian central line tip is in the superior aspect of the SVC. No pneumothorax is visualized. Otherwise, stable exam. Patel Palmer MD Abdomen/Pelvis CT 07/07/16 1110 Signed Impressions: Service Date/Time: Thursday, July 07, 2016 11:31 - CONCLUSION: 1. Renal stones and stents in good position as described above. Yosvany Fuentes MD FACR Chest CT 07/07/16 0000 Signed Impressions: Service Date/Time: Thursday, July 07, 2016 16:09 - CONCLUSION: 1. Consolidative changes in the left upper lobe. There is suspicious adenopathy in the mediastinum. This may be more than an inflammatory process. 2. Bronchoscopy may be the easiest way to make a diagnosis of a neoplastic process. Yosvany Fuentes MD FACR Physical Exam GENERAL: Obese. In Rotaprone bed. Limited exam. Eyes edema, subconjunctival edema. SKIN: No rashes. Cool and dry. No areas of peripheral skin necrosis. HEAD: in head strap for rotaprone. ENT: Intubated. CARDIOVASCULAR: prone with straps. RESPIRATORY: Breath sounds diminished bilaterally posteriorly. GASTROINTESTINAL: Limited exam. MUSCULOSKELETAL: Limited no rash. NEUROLOGICAL: Sedated. Khan with bright red blood tinged urine. Psych could not be assessed IV line sites with no evidence of infection. Assessment & Plan Remarks Severe sepsis present on admission(criteria explained in history of present illness) Pneumonia present on admission (community acquired, atypical, possible component of healthcare associated pneumonia) Likely Legionella Pneumonia with ARDS at this point. At risk for aspiration during prone periods. Bilateral ureteral stents. Acute renal failure present on admission likely sepsis, AIN, ATN. Acute metabolic encephalopathy: likely secondary to sepsis Recommendations: Sputum cultures negative. DC Zosyn IV DC Zyvox IV Continue Azithromycin IV (will likely need 3 weeks or more) Continue Levaquin IV (will likely need 3 weeks or more) Start Cefepime 2 gm IV q24hrs (renal dose adjusted by me) Start flagyl oral (aspiration risk) Follow cultures Follow clinically d/w RN d/w : new antibiotic plan discussed. Patient too critically ill to deescalate from broad spectrum antibiotics. Agrees with above plan. Critically ill. Time spent in excess of 40 mins. Critical thinking and decision making. [employer] and Clinical pharmacist. Brenda Walsh MD Jul 12, 2016 08:57
[2016-07-12] MEDS: BUMETANIDE INJ 1 MG/4 ML VIAL IV PUSH SCH ×2 (08:59→17:26)
--- NOTE | 2016-07-12 08:59 | HHI.CCPN ---
Subjective Remarks/Hospital Course The patient is a 55-year-old male with a past medical history of hypertension, renal calculi, status post bilateral ureteral stent placement in April, . He presented to [facility] ED with a three-day history of bilateral flank pain associated with fever and severe body aches. Just prior to admission, the patient had gross hematuria per his daughter and had decreased p.o. intake. The patient denied any shortness of breath or chest pain. Due to his abdominal pain, a CT scan of the abdomen and pelvis was obtained which showed renal stones and stent in place. An initial chest x-ray in the ED showed extensive airspace disease throughout the left upper lobe characteristic of pneumonia. He subsequently underwent a CT scan of the chest which showed consolidative changes in the left upper lobe along with suspicious adenopathy in the mediastinum. His initial creatinine level was 1.6 and the patient was placed on broad-spectrum antibiotics in addition to IV fluids. His laboratory data from today showed improvement of his renal function with a creatinine of 1.30 and lactic acid level measured at 1.0. [facility] was called for respiratory distress and the patient was a nonrebreather mask and transferred to [facility]. When seen in the ICU he was tachypneic, tachycardic and had a temperature of 103. The patient was subsequently intubated by myself and placed on full mechanical ventilation. A chest x-ray post intubation showed severe diffuse left lung airspace consolidation and a new mild consolation versus atelectasis in the right midlung zone. His nasal washing on arrival negative for influenza, and blood cultures and urine culture from yesterday showed no growth to date. The patient had a temperature of 102.8 earlier today. 07/09 Patient is sedated with versed, Fentanyl and intubated. Now on PRVC with RR 20, TV 550, IT:1, PEEP:15 and FIO2 100%. Afebrile. His Legionella urinary AG is positive. Renal function worse today with Cr 1.86 from 1.30 07/10: Patient remains very critical. Placed on Prone therapy yesterday for worsening respiratory status and severe hypoxia. Worsening renal function- creatinine increased from 1.8-2.8 today, urology following, will consult nephrology. Remains on 4 mics per minute of Levophed, urine output adequate 1.9 L in 24 hours. Currently on broad-spectrum antibiotics per ID on Zosyn and azithromycin Zyvox. I have added Levaquin for double coverage for Legionella 07/11: Remains intubated sedated. FiO2 at 50%. Chest x-ray shows bilaterally improving aeration. We'll reduce PEEP to 12. Urine output is adequate but creatinine has increased to 3. 07/12: Patient remains on prone therapy, remains critically ill but slowly his improving oxygenation. Currently on 10 of PEEP and 50% oxygen. Urine output is 1.7 L in 24 hours, increase in BUN to 79 creatinine is 3.2. We'll start weaning and starting today Objective Vital Signs Date Time Temp Pulse Resp B/P Pulse Ox O2 Delivery O2 Flow Rate FiO2 07/12/16 08:00 50 07/12/16 07:31 98 07/12/16 06:00 87 07/12/16 04:00 97.9 24 146/90 154/70 07/10/16 19:00 Mechanical Ventilator 07/08/16 10:41 15.00 Intake and Output 07/11/16 07/11/16 07/12/16 08:00 16:00 00:00 Intake Total 1444 ml 1635 ml 1425 ml Output Total 450 ml 500 ml 545 ml Balance 994 ml 1135 ml 880 ml Result Diagram: 07/12/16 0320 07/12/16 0320 Other Results Laboratory Tests Test 07/11/16 07/11/16 07/11/16 07/12/16 13:20 16:10 17:30 07:39 Blood Gas Puncture Site ART LINE ART LINE ART LINE ART LINE Blood Gas Patient Temperature 98.6 98.6 98.6 98.6 Blood Gas HCO3 16 mmol/L 19 mmol/L 22 mmol/L 23 mmol/L (22-26) (22-26) (22-26) (22-26) Blood Gas Base Excess -10.9 mmol/L -8.1 mmol/L -4.2 mmol/L -3.1 mmol/L (-2-2) (-2-2) (-2-2) (-2-2) Blood Gas Oxygen Saturation 95 % (90-100) 95 % (90-100) 92 % (90-100) 94 % (90- 100) Arterial Blood pH 7.21 7.20 7.25 7.25 (7.380-7.420) (7.380-7.420) (7.380-7.420) (7.380-7.420) Arterial Blood Partial 40 mmHg (38-42) 50 mmHg (38-42) 52 mmHg (38-42) 54 mmHg ( 38-42) Pressure CO2 Arterial Blood Partial 109 mmHg 111 mmHg 85 mmHg 97 mmHg Pressure O2 (61-120) (61-120) (61-120) (61-120) Arterial Blood Oxygen Content 15.8 Vol % 19.7 Vol % 15.8 Vol % 18.6 Vol % (12.0-20.0) (12.0-20.0) (12.0-20.0) (12.0-20.0) Arterial Blood 0.8 % (0-4) 0.6 % (0-4) 0.9 % (0-4) 0.9 % (0-4) Carboxyhemoglobin Arterial Blood Methemoglobin 1.5 % (0-2) 1.7 % (0-2) 1.7 % (0-2) 1.5 % (0-2) Blood Gas Hemoglobin 11.7 G/DL 14.7 G/DL 12.1 G/DL 14.1 G/DL (12.0-16.0) (12.0-16.0) (12.0-16.0) (12.0-16.0) Oxygen Delivery Device VENTILATOR VENTILATOR VENTILATOR VENTILATOR Blood Gas Ventilator Setting PRVC/AC RPVC/AC PRVC/AC SEE COMMENTS Blood Gas Inspired Oxygen 50 % 50 % 50 % 50 % Imaging Last Impressions Chest X-Ray 07/08/16 0000 Signed Impressions: Service Date/Time: Friday, July 08, 2016 11:08 - CONCLUSION: 1. Endotracheal tube is present with tip measuring 5.7 cm from the farooq. 2. Severe diffuse left lung airspace consolidation, increased from yesterday's exam. There is also new mild consolidation versus atelectasis in the right midlung zone. Patel Palmer MD Abdomen/Pelvis CT 07/07/16 1110 Signed Impressions: Service Date/Time: Thursday, July 07, 2016 11:31 - CONCLUSION: 1. Renal stones and stents in good position as described above. Yosvany Fuentes MD FACR Chest CT 07/07/16 0000 Signed Impressions: Service Date/Time: Thursday, July 07, 2016 16:09 - CONCLUSION: 1. Consolidative changes in the left upper lobe. There is suspicious adenopathy in the mediastinum. This may be more than an inflammatory process. 2. Bronchoscopy may be the easiest way to make a diagnosis of a neoplastic process. Yosvany Fuentes MD FACR Objective Remarks GENERAL: Patient is 55 yo critically ill intubated and sedated. On Prone therapy SKIN: Warm and dry. HEAD: Normocephalic. EYES: No injection or drainage. NECK: Supple, trachea midline. Orally intubated CARDIOVASCULAR: Regular rate and rhythm without murmurs, gallops, or rubs. RESPIRATORY: Receiving prone therapy. Breath sounds equal bilaterally posteriorly with rhonchi and crackles bilaterally. Predominantly left sided crackles GASTROINTESTINAL: Abdomen soft, non-tender, nondistended. MUSCULOSKELETAL: No cyanosis, or edema. NEURO: Sedated, paralyzed for prone therapy Urinary Catheter: Yes Assessment to: Continue Vascular Central Line Catheter: Yes Assessment to: Continue A/P Assessment and Plan PROBLEM LIST Acute hypoxemic respiratory Septic shock ARDS Legionella pneumonia Acute kidney failure Acute metabolic encephalopathy Urinary tract infection History of renal calculi with bilateral ureteral stent placement in April History of hypertension Leukocytosis Mild hyponatremia Plan Neuro: -On Versed, Fentanyl infusion for sedation. On Nimbex for neuromuscular paralysis -Continue with thiamine 100 mg daily. Continue close neuro monitoring Pulm: -Prone therapy for severe ARDS initiated 07/09/16 -Change to cycles of 4 hour prone, 4 hour supine if tolerated -Currently on PEEP 10, FiO2 50%. Change vent to ACV RR 18 TV 650 to improve acidosis. Peak pressure 27 on this setting indicating improved lung compliance -Bronchodilators, Solumederol 40mg Q8-change to q12, pulm is following-Dr. Jaimes -ICU vent bundle, f/u CXR and ABG -Continue Flolan 50ng/kg/min neb solution at 8ml/hr-start weaning Flolan today CV: -Off Levophed. Monitor HR and BP keep MAP>65mmHg. Lactic acid level measured at 1.4 -F/u 2D echo to evaluate LV function -Hydration with bicarbonate infusion-discontinued today by nephrology : -Nephrology following for worsening renal function. DC bicarb gtt per Dr. Handley -Starting Bumex today 07/12/16 per nephrology -Urology service for hx flank pain and renal calculi with ureteral stent placement-CT abdomen pelvis showed stents in good position -Acute kidney failure could be related to severe sepsis and hypotension -Monitor renal function, Is and Os and electrolyte replacement as needed. GI: -On tube feeds- Glucerna 1.5@20ml/hr, Protonix 40mg IV daily for GI prophylaxis -Bowel regimen with colace and senna -Continue Reglan ID: -Continue with ABX per ID (Zyvox, Zithromax and Zosyn). Added Levaquin for additional Legionella coverage 07/10/16, discussed with Dr. Walsh -07/08 Legionella urinary antigen positive. -07/07 BC : [facility] 06/21 bottles-coag neg staph, probable contaminant Endo: -SSI with Accu-Chek q.6 hours for glycemic control Heme: -Monitor CBC. Proph: -GI prophylaxis with Protonix 40 mg daily and DVT prophylaxis with SCDs and Lovenox subcu. Lines: -Peripheral IV, L subclavian central line 07/09/16 Remains critically ill with severe ARDS from Legionella pneumonia. In addition patient has acute hypoxemic respiratory failure, severe sepsis with shock and acute renal failure. His prognosis is guarded at this time CCT 40 mins Jadiel Sweeney MD Jul 12, 2016 08:59
--- NOTE | 2016-07-12 09:05 | HHI.IDPN ---
Subjective Subjective Remarks NOTE FOR PATIENT SEEN ON 07/12/2016 at 9:03 am Mr. Ambrocio is a 55-year-old male with past medical history significant for renal calculi status post bilateral ureteral stent placements as well as hypertension who presented to the emergency department to bilateral flank pain for the past 3 days. He also had shortness of breath and chest discomfort on admission. ID following for sepsis, pneumonia, legionella antigen positive, possible legionellosis with secondary bacterial infection. Overnight events reviewed. Afebrile. Remains on rotaprone bed but FiO2 50% improved and PEEP 8. No rash No diarrhea Remains intubated. CXR with bilateral diffuse infiltrates left more than right. CXR reviewed by me. No pleural effusions noted. Antibiotics Azithro IV Levaquin IV Cefepime IV Flagyl oral Lines Line sites with no e/o infection Past Medical History reviewed. 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 Vital Signs Date Time Temp Pulse Resp B/P Pulse Ox O2 Delivery O2 Flow Rate FiO2 07/12/16 08:00 50 07/12/16 07:31 98 50 07/12/16 06:00 87 07/12/16 04:03 96 50 07/12/16 04:00 50 07/12/16 04:00 97.9 91 24 146/90 97 154/70 07/12/16 04:00 91 07/12/16 04:00 91 146/90 154/70 07/12/16 02:00 88 07/12/16 01:05 97 50 07/12/16 00:00 89 07/12/16 00:00 50 07/12/16 00:00 97.3 89 24 128/74 98 141/54 07/12/16 00:00 89 128/74 141/54 07/11/16 22:15 96 50 07/11/16 22:00 96 07/11/16 20:00 97.6 84 24 132/78 97 148/73 07/11/16 20:00 84 07/11/16 20:00 84 132/78 148/73 07/11/16 20:00 50 07/11/16 19:40 97 50 07/11/16 18:00 96 07/11/16 16:24 97 50 07/11/16 16:00 74 90/54 110/56 07/11/16 16:00 74 07/11/16 16:00 97.5 74 24 90/54 95 110/56 07/11/16 16:00 50 07/11/16 14:00 76 07/11/16 12:25 94 50 07/11/16 12:00 50 07/11/16 12:00 85 129/81 136/66 07/11/16 12:00 97.6 85 24 129/81 96 136/66 07/11/16 12:00 85 07/11/16 10:21 95 50 07/11/16 10:00 77 07/11/16 07/11/16 07/12/16 15:00 23:00 07:00 Intake Total 1635 ml 1425 ml 1430 ml Output Total 500 ml 545 ml 700 ml Balance 1135 ml 880 ml 730 ml IV Total 1237 ml 1230 ml 1203 ml Tube Feeding 158 ml 135 ml 107 ml Tube Irrigant 60 ml 120 ml Other 240 ml Output Urine Total 500 ml 525 ml 700 ml Stool Total 20 ml 0 ml . Laboratory Tests Test 07/11/16 07/12/16 04:09 03:20 White Blood Count 17.6 TH/MM3 18.4 TH/MM3 Red Blood Count 3.37 MIL/MM3 3.50 MIL/MM3 Hemoglobin 11.0 GM/DL 11.3 GM/DL Hematocrit 32.8 % 34.0 % Mean Corpuscular Volume 97.5 FL 97.1 FL Mean Corpuscular Hemoglobin 32.6 PG 32.4 PG Mean Corpuscular Hemoglobin 33.4 % 33.4 % Concent Red Cell Distribution Width 14.4 % 14.5 % Platelet Count 294 TH/MM3 360 TH/MM3 Mean Platelet Volume 7.7 FL 8.2 FL Neutrophils (%) (Auto) 93.9 % 92.6 % Lymphocytes (%) (Auto) 2.0 % 1.4 % Monocytes (%) (Auto) 3.9 % 5.8 % Eosinophils (%) (Auto) 0.0 % 0.0 % Basophils (%) (Auto) 0.2 % 0.2 % Neutrophils # (Auto) 16.5 TH/MM3 17.1 TH/MM3 Lymphocytes # (Auto) 0.3 TH/MM3 0.3 TH/MM3 Monocytes # (Auto) 0.7 TH/MM3 1.1 TH/MM3 Eosinophils # (Auto) 0.0 TH/MM3 0.0 TH/MM3 Basophils # (Auto) 0.0 TH/MM3 0.0 TH/MM3 CBC Comment DIFF FINAL AUTO DIFF Differential Comment FINAL DIFF MANUAL Differential Total Cells 100 Counted Neutrophils % (Manual) 84 % Band Neutrophils % 9 % Lymphocytes % 2 % Monocytes % 3 % Neutrophils # (Manual) 17.5 TH/MM3 Metamyelocytes 1 % Myelocytes 1 % Platelet Estimate NORMAL Platelet Morphology Comment NORMAL Red Cell Morphology Comment Laboratory Tests Test 07/11/16 07/11/16 07/12/16 04:09 13:05 03:20 Sodium Level 139 MEQ/L 143 MEQ/L Potassium Level 3.8 MEQ/L 4.2 MEQ/L Chloride Level 105 MEQ/L 109 MEQ/L Carbon Dioxide Level 21.0 MEQ/L 25.6 MEQ/L Anion Gap 13 MEQ/L 8 MEQ/L Blood Urea Nitrogen 64 MG/DL 79 MG/DL Creatinine 3.12 MG/DL 3.21 MG/DL Estimat Glomerular Filtration 21 ML/MIN 20 ML/MIN Rate Random Glucose 179 MG/DL 148 MG/DL Calcium Level 7.7 MG/DL 7.5 MG/DL Total Bilirubin 0.3 MG/DL 0.3 MG/DL Direct Bilirubin 0.3 MG/DL Indirect Bilirubin 0.0 MG/DL Aspartate Amino Transf 76 U/L 71 U/L (AST/SGOT) Alanine Aminotransferase 51 U/L 54 U/L (ALT/SGPT) Alkaline Phosphatase 83 U/L 92 U/L Total Protein 6.5 GM/DL 5.8 GM/DL 6.6 GM/DL Albumin 1.8 GM/DL 2.08 GM/DL 1.8 GM/DL Albumin/Globulin Ratio 0.56 Ymwsk-9-Eeleugoui 0.60 GM/DL Unipu-6-Qyzsskbqs 1.54 GM/DL Beta Globulins 0.88 GM/DL Gamma Globulins 0.70 GM/DL Phosphorus Level 5.0 MG/DL Magnesium Level 2.9 MG/DL Imaging Last Impressions Chest X-Ray 07/09/16 0000 Signed Impressions: Service Date/Time: Saturday, July 09, 2016 10:44 - CONCLUSION: Left subclavian central line tip is in the superior aspect of the SVC. No pneumothorax is visualized. Otherwise, stable exam. Patel Palmer MD Abdomen/Pelvis CT 07/07/16 1110 Signed Impressions: Service Date/Time: Thursday, July 07, 2016 11:31 - CONCLUSION: 1. Renal stones and stents in good position as described above. Yosvany Fuentes MD FACR Chest CT 07/07/16 0000 Signed Impressions: Service Date/Time: Thursday, July 07, 2016 16:09 - CONCLUSION: 1. Consolidative changes in the left upper lobe. There is suspicious adenopathy in the mediastinum. This may be more than an inflammatory process. 2. Bronchoscopy may be the easiest way to make a diagnosis of a neoplastic process. Yosvany Fuentes MD FACR Physical Exam GENERAL: Obese. In Rotaprone bed. Limited exam. Eyes edema, subconjunctival edema. SKIN: No rashes. Cool and dry. No areas of peripheral skin necrosis. HEAD: in head strap for rotaprone. ENT: Intubated. CARDIOVASCULAR: prone with straps. RESPIRATORY: Breath sounds diminished bilaterally posteriorly. GASTROINTESTINAL: Limited exam. MUSCULOSKELETAL: Limited no rash. NEUROLOGICAL: Sedated. Khan with bright red blood tinged urine. Psych could not be assessed IV line sites with no evidence of infection. Assessment & Plan Remarks Severe sepsis present on admission(criteria explained in history of present illness) Pneumonia present on admission (community acquired, atypical, possible component of healthcare associated pneumonia) Likely Legionella Pneumonia with ARDS at this point. At risk for aspiration during prone periods. Bilateral ureteral stents. Acute renal failure present on admission likely sepsis, AIN, ATN. Acute metabolic encephalopathy: likely secondary to sepsis Recommendations: Sputum cultures negative. Continue Azithromycin IV (will likely need 3 weeks or more) Continue Levaquin IV (will likely need 3 weeks or more) Continue Cefepime 2 gm IV q24hrs (renal dose adjusted by me) Continue flagyl oral (aspiration risk) Follow cultures Follow clinically d/w RN, renal. Critically ill. Brenda Walsh MD Jul 12, 2016 09:05
[2016-07-12 09:39] LABS: BLOOD GAS BASE EXCESS -2.5 mmol/L (-2-2); BLOOD GAS HCO3 24 mmol/L (22-26); BLOOD GAS METHEMOGLOBIN 1.4 % (0-2); BLOOD GAS O2 HGB SATURATION 90 % (90-100); BLOOD GAS OXYGEN CONTENT 15.7 Vol % (12.0-20.0); BLOOD GAS PCO2 54 mmHg (38-42); BLOOD GAS PO2 72 mmHg (61-120); BLOOD GAS TOTAL HGB 12.4 G/DL (12.0-16.0); CRITICAL VALUE YES; OXYGEN DEVICE VENTILATOR; TEMP CORR TO 98.6
[2016-07-12 09:40] LABS: DRAW SITE ART LINE; FIO2 50 %; STAT NO; VENT SETTINGS 650/18/PEEP8
[2016-07-12] MEDS: AZITHROMYCIN INJ 500 MG in SODIUM CHLOR 0.9% 250 ML INJ 250 ML IV SCH (10:42)
--- NOTE | 2016-07-12 10:49 | HHI.NPPN ---
Subjective Renal Failure: Acute Interval History Creatinine is worse but has maintained urine output. Positive fluid balance persists. (Chiquita Sher) Review of Systems General General Remarks unable to obtain due to intubation/sedation (Chiquita Sher) Objective Data Data 07/11/16 07/12/16 19:00 07:00 Intake Total 1635 ml 2855 ml Output Total 500 ml 1245 ml Balance 1135 ml 1610 ml IV Total 1237 ml 2433 ml Tube Feeding 158 ml 242 ml Tube Irrigant 180 ml Other 240 ml Output Urine Total 500 ml 1225 ml Stool Total 20 ml Vital Signs Date Time Temp Pulse Resp B/P Pulse Ox O2 Delivery O2 Flow Rate FiO2 07/12/16 08:30 93 50 07/12/16 08:00 50 07/12/16 07:31 98 50 07/12/16 06:00 87 07/12/16 04:03 96 50 07/12/16 04:00 50 07/12/16 04:00 97.9 91 24 146/90 97 154/70 07/12/16 04:00 91 07/12/16 04:00 91 146/90 154/70 07/12/16 02:00 88 07/12/16 01:05 97 50 07/12/16 00:00 89 07/12/16 00:00 50 07/12/16 00:00 97.3 89 24 128/74 98 141/54 07/12/16 00:00 89 128/74 141/54 07/11/16 22:15 96 50 07/11/16 22:00 96 07/11/16 20:00 97.6 84 24 132/78 97 148/73 07/11/16 20:00 84 07/11/16 20:00 84 132/78 148/73 07/11/16 20:00 50 07/11/16 19:40 97 50 07/11/16 18:00 96 07/11/16 16:24 97 50 07/11/16 16:00 74 90/54 110/56 07/11/16 16:00 74 07/11/16 16:00 97.5 74 24 90/54 95 110/56 07/11/16 16:00 50 07/11/16 14:00 76 07/11/16 12:25 94 50 07/11/16 12:00 50 07/11/16 12:00 85 129/81 136/66 07/11/16 12:00 97.6 85 24 129/81 96 136/66 07/11/16 12:00 85 (Chiquita Sher) -: 07/12/16 0320 07/12/16 0320 Imaging Last 72 hours Impressions Chest X-Ray 07/12/16 0600 Signed Impressions: Service Date/Time: Tuesday, July 12, 2016 03:52 - CONCLUSION: Bilateral scattered pulmonary infiltrates about the same compared to the prior exam, left greater than right. Elgin Levin MD Chest X-Ray 07/11/16 0500 Signed Impressions: Service Date/Time: Monday, July 11, 2016 05:44 - CONCLUSION: 1. Slight improved aeration of the consolidation in the left upper lung. 2. Stable infiltrate in the right upper lung. 3. No significant changes. Elgin Levin MD Chest X-Ray 07/10/16 0000 Signed Impressions: Service Date/Time: Sunday, July 10, 2016 09:12 - CONCLUSION: 1. Interval reinflation of the left lower lobe. 2. Dense consolidation/infiltrate involving the left upper lobe. 3. Patchy infiltrate seen in the right upper lobe. Mark Fuentes MD Tubes & Lines: Khan Tubes & Lines Comment NG tube, A line Drip Comment Nimbex, flolan, fentanyl, versed (Chiquita Sher) Physical Exam General Appearance: Well Developed Appearance Remarks difficult to examine due to rotoprone bed/positioning (Chiquita Sher) Eyes Eye Exam: Pupils Equal (Chiquita Sher) Ears & Nose Ears & Nose Remarks facial edema (Chiquita Sher) Neck Neck Exam: Neck Supple (Chiquita Sher) Pulmonary Resp Exam: Decreased Bases Resp Remarks right lung diminished lung sounds, no wheezing, bronchial left lung sounds with scattered rales (Chiquita Sher) Cardiology CV Exam: Regular, Normal Sinus Rhythm (Chiquita Sher) Gastrointestinal/Abdomen GI Exam: Soft, Non-Tender (Chiquita Sher) Musculoskeletal MS Exam: Joints Intact (Chiquita Sher) Integumentary Skin Exam: Dry, Intact (Chiquita Sher) Extremeties Extremities Exam: Pedal Pulses Palpable (Chiquita Sher) Neurologic Neuro Exam: Unresponsive, Sedated (Chiquita Sher) Assessment/Plan Discussed Condition With: Daughter Assessment Summary: JASON/Acute Renal Failure, Fluid/Volume Overload Problem List: (1) Acute renal failure Plan: His creatinine was 1.13 on 07/08 he became septic around that time with BP 70/30s, started on pressors JASON due to decreased renal perfusion, possibly AIN, or ATN he is non oliguric but creatinine continues to increase has proteinuria, quantification and serologies still in process, complement levels normal I/O measurement showing positive fluid balance, avoid fluids and begin bumex BID, monitor urine output continue pressors if needed to maintain MAP > 65 mmHg at this time monitor his renal function, he may require dialysis in the near future avoid known nephrotoxins renal panel in am (2) Sepsis Plan: due to legionella, ARDS he is on Zosyn, Zyvox, Zithromax, and Levaquin also on nebs blood cx negative, cxr with improvement reduce antimicrobials when possible ID following, monitor clinically (3) Left flank pain Plan: with non obstructing stone s/p previous bilateral ureteral stent placement, may need lithotripsy and stent removal in future urology has evaluated (Chiquita Sher) Plan patient was seen and examined. Discontinue bicarbonate drip. Start diuretics. Non oliguric. No immediate need for dialysis. (Harvey Handley MD) Chiquita Sher Jul 12, 2016 10:49 Harvey Handley MD Jul 13, 2016 14:09
[2016-07-12] MEDS ORDERED: SODIUM CHLORIDE NEB SCH ×2 (11:00→19:00)
[2016-07-12] MEDS ORDERED: EPOPROSTENOL NEB SCH ×2 (11:00→19:00)
[2016-07-12] MEDS: MORPHINE SULFATE 4 MG/ML INJ IV PRN ×2 (11:30→20:52)
[2016-07-12 14:02] LABS: ANA SCREEN NEG (NEG)
[2016-07-12] MEDS: CEFEPIME INJ 2,000 MG in SODIUM CHLORIDE 0.9% INJ 100 ML IV SCH (15:32)
--- NOTE | 2016-07-12 16:26 | HHI.FPPN ---
Subjective Remarks Afebrile. Vitals stable. 1725 UOP. Remains on prone therapy. Sedated on mechanical ventilation of PEEP 10 and FiO2 50%. Objective Vitals Vital Signs Date Time Temp Pulse Resp B/P Pulse Ox O2 Delivery O2 Flow Rate FiO2 07/12/16 15:54 95 50 07/12/16 14:00 101 07/12/16 12:00 90 07/12/16 12:00 50 07/12/16 12:00 97.7 90 18 144/78 92 164/77 07/12/16 12:00 90 144/78 164/77 07/12/16 11:00 96 50 07/12/16 10:00 94 07/12/16 08:30 93 50 07/12/16 08:15 50 07/12/16 08:00 50 07/12/16 08:00 82 07/12/16 08:00 97.7 82 24 138/76 95 150/58 07/12/16 08:00 82 138/76 150/58 07/12/16 07:31 98 50 07/12/16 06:00 87 07/12/16 04:03 96 50 07/12/16 04:00 50 07/12/16 04:00 97.9 91 24 146/90 97 154/70 07/12/16 04:00 91 07/12/16 04:00 91 146/90 154/70 07/12/16 02:00 88 07/12/16 01:05 97 50 07/12/16 00:00 89 07/12/16 00:00 50 07/12/16 00:00 97.3 89 24 128/74 98 141/54 07/12/16 00:00 89 128/74 141/54 07/11/16 22:15 96 50 07/11/16 22:00 96 07/11/16 20:00 97.6 84 24 132/78 97 148/73 07/11/16 20:00 84 07/11/16 20:00 84 132/78 148/73 07/11/16 20:00 50 07/11/16 19:40 97 50 07/11/16 18:00 96 I/O 07/11/16 07/11/16 07/11/16 07/12/16 07/12/16 07/12/16 07:00 15:00 23:00 07:00 15:00 23:00 Intake Total 1444 ml 1635 ml 1425 ml 1430 ml 1928 ml Output Total 450 ml 500 ml 545 ml 700 ml 1000 ml Balance 994 ml 1135 ml 880 ml 730 ml 928 ml IV Total 1356 ml 1237 ml 1230 ml 1203 ml 1248 ml Tube Feeding 88 ml 158 ml 135 ml 107 ml 140 ml Tube Irrigant 60 ml 120 ml 300 ml Other 240 ml 240 ml Output Urine Total 450 ml 500 ml 525 ml 700 ml 1000 ml Stool Total 0 ml 20 ml 0 ml # Bowel Movements 1 Result Diagram: 07/12/16 03207/12/16 032 Objective Remarks GEN: Well-developed, well-nourished patient. Diffuse facial swelling Sedated and intubated on mech vent, in prone bed CV: Regular rate and rhythm without obvious murmurs or rubs. LUNGS: Course breath sounds more prominent on the left. Extremities: bilateral LE swelling NEURO/PSYCH: Sedated A/P Assessment and Plan 55 year old male with h/o HTN, renal calculi, s/p bilateral ureteral stent placements presented due to bilateral flank pain more significant on the left x 3 days, admitted for left-sided pneumonia, sepsis, possible UTI. Critical care was consulted on 07/08 due to acute worsening of symptoms associated with respiratory distress. Neuro: Sedated due to intubation, acute metabolic encephalopathy -On Versed, Fentanyl for sedation. -Nimbex for neuromuscular paralysis -ABG showing metabolic acidosis -neuro checks Pulm: Left legionella pneumonia, severe ARDS, respiratory distress, COPD, suspicious adenopathy in the mediastinum -Prone position Pulmonary consulted: appreciate recommendations * Will require bronchoscopic examination -Due to severe ARDS, will have patient in prone position -Currently on PEEP of 10, FiO2 of 50% Imaging: * CXR 07/12: Bilateral scattered pulmonary infiltrates about the same compared to the prior exam * CXR 07/11: Slight improved aeration of the consolidation in the left upper lung. Stable infiltrate in the right upper lung. No significant changes * CXR 07/09: Persistent severe diffuse left lung air space consolidation with likely left pleural effusion. Stable subtle airspace consolidation/opacity the in the right midlung * Chest CT: Consolidative changes in the left upper lobe. There is suspicious adenopathy in the mediastinum. This may be more than an inflammatory process * CXR 07/07: Extensive airspace disease throughout the left upper lobe characteristic of pneumonitis Medications: * Albuterol and Duonebs * Solu-Medrol, 60mg Q8 * Flolan 50ng/kg/min neb solution at 8ml/hr Cardiac: HLD, HTN but now hypotensive -ACS negative -Echo: Mild to moderate LVH, normal systolic function, ejection fraction estimated to be 60%. No regional wall motion abnormalities. Mild mitral valve regurgitation. -Off Levophed as MAP >65 -continued home atorvastatin -hold home amlodipine : S/P bilateral ureteral stents, JASON -improved urine output but with continued elevated in Cr Urology consulted: Appreciate recommendations * Once clinical picture improves, may remove stents versus attempted attempted ureteroscopy and laser lithotripsy * Will follow Nephrology consulted: appreciate recommendations * JASON likely due to decreased renal perfusion * Fluids discontinued GI: -On tube feeds- Glucerna -Metoclopramide schedule q8 -Protonix 40mg IV daily for GI prophylaxis ID: Legionella pneumonia, leukocytosis, septic shock, -Uptrending leukocytosis despite antibiotics, may be due to steroids as well -Afebrile x72hrs -Legionella antigen positive in urine -1 of 2 blood culture on 07/07 positive for staph S/P coagulase-negative, likely due to contamination -Repeat blood cultures, sputum cultures, urine cx NGTD -urine eosinophils none seen ID consulted: Appreciate recommendations * Cefepime 07/11 * Flagyl 07/11 * Azithromycin 07/08- * Levaquin 07/10- * Zyvox 07/09-07/11 * Zosyn 07/07-07/11 * Vancomycin 07/07-07/09, discontinued due to concern for drug fever and allegic interstitial nephritis * Hold on rifampin as FIO2 has improved with prone position Endo: SSI with Accu-Chek DVT Prophylaxis - Lovenox Discharge Planning Timetable unknown. Pending respiratory improvement. Problem List: (1) Legionella pneumonia Status: Acute (2) Acute respiratory failure with hypoxia Status: Acute (3) Acute renal failure Status: Acute (4) Sepsis Status: Acute (5) COPD (chronic obstructive pulmonary disease) Status: Acute Matias Lewis MD R1 Jul 12, 2016 16:26
[2016-07-12] MEDS: METOPROLOL TARTRATE 25 MG TAB PO SCH ×2 (17:48→20:53)
--- NOTE | 2016-07-12 17:56 | RADRPT ---
EXAM DATE/TIME: 07/12/2016 16:59 [facility] COMPARISON: No previous studies available for comparison. INDICATIONS : Vomiting. MEDICAL HISTORY : Cardiovascular disease. Hypertension. SURGICAL HISTORY : None. ENCOUNTER: Subsequent ACUITY: 4 - 6 days PAIN SCORE: Non-responsive. LOCATION: Abdomen, upper quadrant. FINDINGS: A nasogastric tube coils in the stomach. Bilateral double-J ureteral stents are present. Multiple tejal gical clips are seen overlying the right inguinal region. There are degenerative changes in the spine and hips. Intestinal gas pattern is nonspecific and benign. There appear to be bilateral lung infilt rates. CONCLUSION: Nonspecific, benign abdomen appearance. Patel Torres MD on July 12, 2016 at 17:45 Board Certified Radiologist. This report was verified electronically.
--- NOTE | 2016-07-12 20:35 | RADRPT ---
EXAM DATE/TIME: 07/12/2016 19:25 [facility] COMPARISON: CT THORAX W/O CONTRAST, July 07, 2016, 16:09. INDICATIONS : Soft tissue mass seen on prior CT. MEDICAL HISTORY : Hypertension. Chronic obstructive pulmonary disease. Diverticulitis. Herniated disk. Dyspnea. Sputum production. GERD. Renal calculi. Hematuria. Dysuria. MRSA. SURGICAL HISTORY : Hernia repair. Colon resection. Sinus surgery. ENCOUNTER: Initial ACUITY: > 1 year PAIN SCORE: Nonresponsive. LOCATION: Left chest AREA EVALUATED: Left anterior chest wall. FINDINGS: MASSES: CT abnormality corresponds to a well-defined oval mass subcutaneous tissue measuring 4.5 x 2 x 3.7 cm in diameter. The mass is heterogeneous with hypoechoic and hyperechoic regions. There is no definite color flow. The margins are well-defined. FLUID COLLECTIONS: None. OTHER: Negative. CONCLUSION: Well-defined heterogeneous mass which is nonspecific but likely represents a sebaceou s cyst. Alexandro De La O MD on July 12, 2016 at 20:32 Board Certified Radiologist. This report was verified electronically.
[2016-07-12] MEDS: ATORVASTATIN 80 MG TAB PO SCH (20:52)
[2016-07-12] MEDS: REMOVE OLD NICODERM (NICOTINE) PATCH TD SCH ×2 (20:53→21:00)
[2016-07-12] MEDS: LABETALOL HCL 100 MG/20 ML VIAL IV PUSH PRN (23:25)
[2016-07-13] VITALS (22 sets, daily range): BP systolic 98–195; BP diastolic 50–91; PULSE 59–101; RESP 18–19; TEMP 97.6–98.7; O2SAT 90–96
[2016-07-13] MEDS: RESP: ALBUTEROL 2.5 MG/IPRATROPIUM 0.5 MG NEB (SCH) NEB ×6 (03:20→23:32)
[2016-07-13 04:45] LABS: AUTOMATED NEUTROPHIL # 15.1 TH/MM3 (1.8-7.7); BASOPHIL % 0.1 % (0.0-2.0); EOSINOPHIL % 0.1 % (0.0-4.0); HEMATOCRIT 32.8 % (39.0-51.0); LYMPH % 2.6 % (9.0-44.0); LYMPHOCYTE # 0.4 TH/MM3 (1.0-4.8); MEAN CELL VOLUME 96.1 FL (80.0-100.0); MEAN CORPUSCULAR HEMOGLOBIN 31.9 PG (27.0-34.0); MEAN CORPUSCULAR HGB CONC 33.2 % (32.0-36.0); MONO % 5.5 % (0.0-8.0); NEUT % 91.7 % (16.0-70.0); PLATELET COUNT 379 TH/MM3 (150-450); RED BLOOD COUNT 3.41 MIL/MM3 (4.50-5.90); RED CELL DISTRIBUTION WIDTH 14.5 % (11.6-17.2); WHITE BLOOD COUNT 16.5 TH/MM3 (4.0-11.0)
[2016-07-13 04:51] LABS: HEMO FLAGS AUTO DIFF
[2016-07-13] MEDS: metroNIDAZOLE 500 MG TAB PO SCH ×3 (04:53→21:28)
[2016-07-13] MEDS: METOPROLOL TARTRATE 25 MG TAB PO SCH ×3 (04:53→21:29)
[2016-07-13] MEDS: METOCLOPRAMIDE HCL 10 MG/2 ML VIAL IV SCH ×3 (04:54→21:29)
[2016-07-13] MEDS: PROPOFOL 1000 MG/100 ML INJ 100 ML IV SCH ×3 (04:54→18:11)
[2016-07-13] MEDS: methylPREDNISolone SOD SUCC 40 MG/1 ML VIAL IV PUSH SCH ×2 (04:54→17:35)
[2016-07-13] MEDS: fentaNYL DRIP 250 ML IV SCH ×2 (04:55→14:56)
[2016-07-13 05:19] LABS: BICARBONATE 27.1 MEQ/L (21.0-32.0); POTASSIUM 3.8 MEQ/L (3.5-5.1)
[2016-07-13 05:35] LABS: CALCIUM-PROTEIN CORRECTED 7.9 MG/DL (8.5-10.1)
[2016-07-13] MEDS: INSULIN NovoLIN REGULAR SUPPLEMENTAL SCALE SQ SCH ×3 (05:49→17:35)
[2016-07-13 05:52] LABS: SCAN/DIFF AUTO DIFF CONFIRMED
[2016-07-13 06:56] LABS: BLOOD GAS BASE EXCESS 0.2 mmol/L (-2-2); BLOOD GAS CARBOXYHEMOGLOBIN 1.1 % (0-4); BLOOD GAS HCO3 25 mmol/L (22-26); BLOOD GAS METHEMOGLOBIN 1.5 % (0-2); BLOOD GAS O2 HGB SATURATION 92 % (90-100); BLOOD GAS OXYGEN CONTENT 16.5 Vol % (12.0-20.0); BLOOD GAS PCO2 41 mmHg (38-42); BLOOD GAS PO2 81 mmHg (61-120); BLOOD GAS TOTAL HGB 12.6 G/DL (12.0-16.0); CRITICAL VALUE NO; FIO2 45 %; OXYGEN DEVICE VENTILATOR; TEMP CORR TO 98.6; VENT SETTINGS AC18/650/PEEP10
[2016-07-13 06:57] LABS: DRAW SITE ART LINE; STAT YES
--- NOTE | 2016-07-13 07:10 | HHI.CCPN ---
Subjective Remarks/Hospital Course The patient is a 55-year-old male with a past medical history of hypertension, renal calculi, status post bilateral ureteral stent placement in April, . He presented to [facility] ED with a three-day history of bilateral flank pain associated with fever and severe body aches. Just prior to admission, the patient had gross hematuria per his daughter and had decreased p.o. intake. The patient denied any shortness of breath or chest pain. Due to his abdominal pain, a CT scan of the abdomen and pelvis was obtained which showed renal stones and stent in place. An initial chest x-ray in the ED showed extensive airspace disease throughout the left upper lobe characteristic of pneumonia. He subsequently underwent a CT scan of the chest which showed consolidative changes in the left upper lobe along with suspicious adenopathy in the mediastinum. His initial creatinine level was 1.6 and the patient was placed on broad-spectrum antibiotics in addition to IV fluids. His laboratory data from today showed improvement of his renal function with a creatinine of 1.30 and lactic acid level measured at 1.0. [facility] was called for respiratory distress and the patient was a nonrebreather mask and transferred to [facility]. When seen in the ICU he was tachypneic, tachycardic and had a temperature of 103. The patient was subsequently intubated by myself and placed on full mechanical ventilation. A chest x-ray post intubation showed severe diffuse left lung airspace consolidation and a new mild consolation versus atelectasis in the right midlung zone. His nasal washing on arrival negative for influenza, and blood cultures and urine culture from yesterday showed no growth to date. The patient had a temperature of 102.8 earlier today. 07/09 Patient is sedated with versed, Fentanyl and intubated. Now on PRVC with RR 20, TV 550, IT:1, PEEP:15 and FIO2 100%. Afebrile. His Legionella urinary AG is positive. Renal function worse today with Cr 1.86 from 1.30 07/10: Patient remains very critical. Placed on Prone therapy yesterday for worsening respiratory status and severe hypoxia. Worsening renal function- creatinine increased from 1.8-2.8 today, urology following, will consult nephrology. Remains on 4 mics per minute of Levophed, urine output adequate 1.9 L in 24 hours. Currently on broad-spectrum antibiotics per ID on Zosyn and azithromycin Zyvox. I have added Levaquin for double coverage for Legionella 07/11: Remains intubated sedated. FiO2 at 50%. Chest x-ray shows bilaterally improving aeration. We'll reduce PEEP to 12. Urine output is adequate but creatinine has increased to 3. 07/12: Patient remains on prone therapy, remains critically ill but slowly his improving oxygenation. Currently on 10 of PEEP and 50% oxygen. Urine output is 1.7 L in 24 hours, increase in BUN to 79 creatinine is 3.2. We'll start weaning and starting today 07/13: Remains critically ill, but showing continued signs of improvement. UO >4L , Cr improved from 3.2 to 2.8. On weaning doses of Flolan. Maintaining oxygen saturation above 90% on 45% FiO2. WBC count is trending down. Will discontinue prone therapy today Objective Vital Signs Date Time Temp Pulse Resp B/P Pulse Ox O2 Delivery O2 Flow Rate FiO2 07/13/16 06:00 74 07/13/16 04:03 95 45 07/13/16 04:00 138/76 158/59 07/13/16 04:00 98.4 18 07/10/16 19:00 Mechanical Ventilator Intake and Output 07/12/16 07/12/16 07/13/16 08:00 16:00 00:00 Intake Total 1430 ml 1928 ml 852 ml Output Total 700 ml 1000 ml 2550 ml Balance 730 ml 928 ml -1698 ml Result Diagram: 07/13/16 0430 07/13/16 0430 Other Results Laboratory Tests Test 07/12/16 07/12/16 07/13/16 07:39 09:28 06:43 Blood Gas Puncture Site ART LINE ART LINE ART LINE Blood Gas Patient Temperature 98.6 98.6 98.6 Blood Gas HCO3 23 mmol/L 24 mmol/L 25 mmol/L (22-26) (22-26) (22-26) Blood Gas Base Excess -3.1 mmol/L -2.5 mmol/L 0.2 mmol/L (-2-2) (-2-2) (-2-2) Blood Gas Oxygen Saturation 94 % (90-100) 90 % (90-100) 92 % (90-100) Arterial Blood pH 7.25 7.26 7.40 (7.380-7.420) (7.380-7.420) (7.380-7.420) Arterial Blood Partial 54 mmHg (38-42) 54 mmHg (38-42) 41 mmHg (38-42) Pressure CO2 Arterial Blood Partial 97 mmHg 72 mmHg 81 mmHg Pressure O2 (61-120) (61-120) (61-120) Arterial Blood Oxygen Content 18.6 Vol % 15.7 Vol % 16.5 Vol % (12.0-20.0) (12.0-20.0) (12.0-20.0) Arterial Blood 0.9 % (0-4) 1.0 % (0-4) 1.1 % (0-4) Carboxyhemoglobin Arterial Blood Methemoglobin 1.5 % (0-2) 1.4 % (0-2) 1.5 % (0-2) Blood Gas Hemoglobin 14.1 G/DL 12.4 G/DL 12.6 G/DL (12.0-16.0) (12.0-16.0) (12.0-16.0) Oxygen Delivery Device VENTILATOR VENTILATOR VENTILATOR Blood Gas Ventilator Setting SEE COMMENTS 650/18/PEEP8 AC18/650/PEEP10 Blood Gas Inspired Oxygen 50 % 50 % 45 % Imaging Last Impressions Chest X-Ray 07/08/16 0000 Signed Impressions: Service Date/Time: Friday, July 08, 2016 11:08 - CONCLUSION: 1. Endotracheal tube is present with tip measuring 5.7 cm from the farooq. 2. Severe diffuse left lung airspace consolidation, increased from yesterday's exam. There is also new mild consolidation versus atelectasis in the right midlung zone. Patel Palmer MD Abdomen/Pelvis CT 07/07/16 1110 Signed Impressions: Service Date/Time: Thursday, July 07, 2016 11:31 - CONCLUSION: 1. Renal stones and stents in good position as described above. Yosvany Fuentes MD FACR Chest CT 07/07/16 0000 Signed Impressions: Service Date/Time: Thursday, July 07, 2016 16:09 - CONCLUSION: 1. Consolidative changes in the left upper lobe. There is suspicious adenopathy in the mediastinum. This may be more than an inflammatory process. 2. Bronchoscopy may be the easiest way to make a diagnosis of a neoplastic process. Yosvany Fuentes MD FACR Objective Remarks GENERAL: Patient is 55 yo critically ill intubated and sedated. On Prone therapy SKIN: Warm and dry. HEAD: Normocephalic. EYES: No injection or drainage. NECK: Supple, trachea midline. Orally intubated CARDIOVASCULAR: Regular rate and rhythm without murmurs, gallops, or rubs. RESPIRATORY: Receiving prone therapy. Breath sounds equal bilaterally posteriorly with rhonchi and crackles bilaterally. GASTROINTESTINAL: Abdomen soft, non-tender, nondistended. MUSCULOSKELETAL: No cyanosis, or edema. NEURO: Sedated, paralyzed for prone therapy A/P Assessment and Plan PROBLEM LIST Acute hypoxemic respiratory failure Septic shock ARDS Multilobar Legionella pneumonia Acute kidney failure Acute metabolic encephalopathy Urinary tract infection History of renal calculi with bilateral ureteral stent placement in April History of hypertension Leukocytosis Mild hyponatremia Plan Neuro: -On Versed, Fentanyl infusion for sedation. On Nimbex for neuromuscular paralysis-discontinue Nimbex today -Continue with thiamine 100 mg daily. Continue close neuro monitoring -Start daily sedation vacation Pulm: -Prone therapy for severe ARDS initiated 07/09/16. Discontinued today 07/13/16 -Tolerating 4 hour prone, 4 hour supine. Wean to DC Flolan today 07/13/16 -Currently on PEEP 10, FiO2 45%. Change TV to 600 to improve acidosis. Peak pressure 27-30 on this setting indicating improved lung compliance -Bronchodilators, Solumederol 40mg q12, pulm is following-Dr. Jaimes -ICU vent bundle, f/u CXR and ABG CV: -Monitor HR and BP keep MAP>65mmHg. Lactic acid level measured at 1.4 -2D echo 07/10/16-EF 60%, moderate LVH -IV Bumex 1 mg every 12 hours started by nephrology on 07/12/16 : -Nephrology Dr. Handley following for worsening renal function. -IV Bumex 1 mg every 12 hours started by nephrology on 07/12/16 -Urology service consulted for hx flank pain and renal calculi with ureteral stent placement-CT abdomen pelvis showed stents in good position -Acute kidney failure could be related to severe sepsis and hypotension -Monitor renal function, Is and Os and electrolyte replacement as needed. GI: -On tube feeds- Glucerna 1.5@20ml/hr, Protonix 40mg IV daily for GI prophylaxis -Bowel regimen with colace and senna. Had BM 07/12 -Continue Reglan ID: -Continue with ABX per ID Continue Azithromycin IV, Levaquin IV (both 3 weeks or more). Continue Cefepime 2 gm IV q24hrs and Flagyl oral -07/08 Legionella urinary antigen positive. -07/07 BC : [facility] 06/21 bottles-coag neg staph, probable contaminant Endo: -SSI with Accu-Chek q.6 hours for glycemic control Heme: -Monitor CBC. Proph: -GI prophylaxis with Protonix 40 mg daily and DVT prophylaxis with SCDs and Lovenox subcu. Lines: -Peripheral IV, L subclavian central line 07/09/16 Remains critically ill with severe ARDS from Legionella pneumonia. In addition patient has acute hypoxemic respiratory failure, severe sepsis with shock and acute renal failure. His prognosis is guarded at this time CCT 40 mins Jadiel Sweeney MD Jul 13, 2016 07:10
--- NOTE | 2016-07-13 07:18 | RADRPT ---
EXAM DATE/TIME: 07/13/2016 06:57 [facility] COMPARISON: CHEST SINGLE AP, July 12, 2016, 3:52. INDICATIONS : Respiratory disease. MEDICAL HISTORY : Hypertension. Chronic obstructive pulmonary disease. Diverticulitis. Herniated disk.Dyspnea. Sputum p roduction. GERD. Renal calculi. Hematuria. Dysuria. MRSA. SURGICAL HISTORY : Hernia repair. Colon resection. Sinus surgery. ENCOUNTER: Subsequent ACUITY: 4 - 6 days PAIN SCORE: Non-responsive. LOCATION: chest FINDINGS: ET tube remains above the farooq and nasogastric tube to the midline of the stomach there is patchy r ight upper lobe faint infiltrate persists as well as consolidation in the left upper lobe which appea rs slightly more prominent progressive. Additionally there is now consolidation the posterior basilar segment of the left lower lobe. CONCLUSION: ET tube remains above the farooq. Rest of better defined consolidation opacity in the left upper lobe and progressive consolidation posterior basilar segment left lower lobe. Johan Smith MD on July 13, 2016 at 7:15 Board Certified Radiologist. This report was verified electronically.
[2016-07-13] MEDS: MIDAZOLAM 100 MG/NS 100 ML DRIP Premix IV SCH ×2 (07:32→17:35)
[2016-07-13] MEDS: FREE WATER OG-TUBE SCH ×4 (08:00→20:00)
[2016-07-13] MEDS: LABETALOL HCL 100 MG/20 ML VIAL IV PUSH PRN (09:16)
[2016-07-13] MEDS: THIAMINE HCL 100 MG TAB PO SCH (09:17)
[2016-07-13] MEDS: SENNOSIDES SYRUP 8.8 MG/5 ML CUP OG SCH ×2 (09:17→21:28)
[2016-07-13] MEDS: ENOXAPARIN SODIUM 30 MG/0.3 ML SYRINGE SQ SCH (09:17)
[2016-07-13] MEDS: ACETAMINOPHEN/HYDROcodone 325 MG/5 MG TAB PO PRN (09:17)
[2016-07-13] MEDS: BUMETANIDE INJ 1 MG/4 ML VIAL IV PUSH SCH (09:17)
[2016-07-13] MEDS: DOCUSATE SODIUM 100 MG/10 ML UDC OG SCH ×2 (09:17→21:27)
[2016-07-13] MEDS: SODIUM CHLORIDE 0.9% FLUSH 5 ML FLUSH FLUSH SCH ×2 (09:18→21:28)
[2016-07-13] MEDS: NICOTINE 21 MG/24 HR PATCH TD SCH (09:33)
[2016-07-13] MEDS ORDERED: hydrALAZINE HCL 20 MG/ML VIAL IV PUSH PRN (10:00)
[2016-07-13] MEDS: AZITHROMYCIN INJ 500 MG in SODIUM CHLOR 0.9% 250 ML INJ 250 ML IV SCH (10:35)
[2016-07-13] MEDS: PANTOPRAZOLE SODIUM 40 MG VIAL IV PUSH SCH (10:35)
[2016-07-13] MEDS: hydrALAZINE HCL 50 MG TAB PO SCH ×2 (10:36→17:35)
--- NOTE | 2016-07-13 11:28 | HHI.FPPN ---
Subjective Remarks No acute events overnight. Vital signs this morning are significant for elevated BP. Patient has been moved from the prone bed to a regular bed. Continues to be sedated. No new concerns beyond BP by the nurse. Objective Vitals Vital Signs Date Time Temp Pulse Resp B/P Pulse Ox O2 Delivery O2 Flow Rate FiO2 07/13/16 07:42 94 45 07/13/16 06:00 74 07/13/16 04:03 95 45 07/13/16 04:00 66 138/76 158/59 07/13/16 04:00 66 07/13/16 04:00 45 07/13/16 04:00 98.4 66 18 138/76 90 158/59 07/13/16 02:00 66 07/13/16 01:05 96 45 07/13/16 00:00 45 07/13/16 00:00 98.4 68 18 119/64 93 153/62 07/13/16 00:00 70 07/13/16 00:00 80 119/64 153/62 07/12/16 22:12 98 45 07/12/16 22:00 80 07/12/16 20:00 70 07/12/16 20:00 80 170/98 188/84 07/12/16 20:00 50 07/12/16 20:00 97.6 80 18 170/97 92 188/84 07/12/16 19:45 97 50 07/12/16 18:00 69 07/12/16 16:00 86 140/82 169/73 07/12/16 16:00 86 07/12/16 16:00 97.6 86 18 140/82 95 169/73 07/12/16 16:00 50 07/12/16 15:54 95 50 07/12/16 14:00 101 07/12/16 12:00 90 07/12/16 12:00 50 07/12/16 12:00 97.7 90 18 144/78 92 164/77 07/12/16 12:00 90 144/78 164/77 I/O 07/12/16 07/12/16 07/12/16 07/13/16 07/13/16 07/13/16 07:00 15:00 23:00 07:00 15:00 23:00 Intake Total 1430 ml 1928 ml 852 ml 836 ml Output Total 700 ml 1000 ml 2550 ml 1550 ml Balance 730 ml 928 ml -1698 ml -714 ml IV Total 1203 ml 1248 ml 732 ml 716 ml Tube Feeding 107 ml 140 ml 0 ml Tube Irrigant 120 ml 300 ml Other 240 ml 120 ml 120 ml Output Urine Total 700 ml 1000 ml 2050 ml 1150 ml Stool Total 0 ml 500 ml 400 ml # Bowel Movements 1 Result Diagram: 07/13/16 04307/13/16 043 Objective Remarks GEN: Well-developed, well-nourished patient. Diffuse facial swelling Sedated and intubated on [facility] vent, supine position. CV: Distant heart sounds are difficult to hear due to upper airway noise but sounds to be in regular rate and rhythm without obvious murmurs or rubs. LUNGS: Coarse breath sounds bilaterally but with good air movement. ABD: Distended but soft. : good urine output in [place] NEURO/PSYCH: Sedated A/P Assessment and Plan 55 year old male with h/o HTN, renal calculi, s/p bilateral ureteral stent placements presented due to bilateral flank pain more significant on the left x 3 days, admitted for left-sided pneumonia, sepsis, possible UTI. Critical care was consulted on 07/08 due to acute worsening of symptoms associated with respiratory distress. Neuro: Sedated due to intubation, acute metabolic encephalopathy -On Versed, Fentanyl, and propofol for sedation. -Nimbex discontinued -ABG was showing metabolic acidosis for permissive hypercapnia but has now resolved with vent changes -Daily sedation vacation Pulm: Left legionella pneumonia, severe ARDS, respiratory distress, COPD, suspicious adenopathy in the mediastinum -discontinued prone position 07/13/16 Pulmonary consulted: appreciate recommendations * Will require bronchoscopic examination -Currently on PEEP of 10, FiO2 of 45%, RR 18 Imaging: * CXR 07/13: Better defined consolidation opacity in the left upper lobe and progressive consolidation posterior basilar segment left lower lobe. * CXR 07/09: Persistent severe diffuse left lung air space consolidation with likely left pleural effusion. Stable subtle airspace consolidation/opacity the in the right midlung * Chest CT: Consolidative changes in the left upper lobe. There is suspicious adenopathy in the mediastinum. This may be more than an inflammatory process * CXR 07/07: Extensive airspace disease throughout the left upper lobe characteristic of pneumonitis Medications: * Albuterol and Duonebs * Solu-Medrol, 40mg Q12 * Flolan 50ng/kg/min neb solution at 8ml/hr Cardiac: HLD, HTN -ACS negative -Echo: Mild to moderate LVH, normal systolic function, ejection fraction estimated to be 60%. No regional wall motion abnormalities. Mild mitral valve regurgitation. Medications: * Amlodipine 10 mg * Hydralazine 50mg PO q8 and PRN * Metoprolol 25 mg q8 * Atorvastatin 80 mg * Labetalol 20 mg PRN : S/P bilateral ureteral stents, JASON -Up trending creatinine has now improved. Continues to have good urine output. Urology consulted: Appreciate recommendations * Once clinical picture improves, may remove stents versus attempted attempted ureteroscopy and laser lithotripsy * Will follow Nephrology consulted: appreciate recommendations * JASON likely due to decreased renal perfusion * Bumex 1mg BID IV GI: -On tube feeds- Glucerna -Metoclopramide schedule q8 -Protonix 40mg IV daily for GI prophylaxis ID: Legionella pneumonia, leukocytosis, septic shock, -Uptrending leukocytosis has now improved -Afebrile since 07/09 -Legionella antigen positive in urine -1 of 2 blood culture on 07/07 positive for staph S/P coagulase-negative, likely due to contamination -Repeat blood cultures, sputum cultures, urine cx NGTD -urine eosinophils none seen ID consulted: Appreciate recommendations * Cefepime 07/11 * Flagyl 07/11 * Azithromycin 07/08- * Levaquin 07/10- Discontinued ABX: * Zyvox 07/09-07/11 * Zosyn 07/07-07/11 * Vancomycin 07/07-07/09, discontinued due to concern for drug fever and allegic interstitial nephritis Endo: SSI with Accu-Chek DVT Prophylaxis - Lovenox Discharge Planning Timetable unknown. Pending respiratory improvement. mago Diallo Problem List: (1) Legionella pneumonia Status: Acute (2) Acute respiratory failure with hypoxia Status: Acute (3) Acute renal failure Status: Acute (4) Sepsis Status: Acute (5) COPD (chronic obstructive pulmonary disease) Status: Acute Jim-Xiomara Joshi MD R2 Jul 13, 2016 11:27
--- NOTE | 2016-07-13 12:50 | HHI.IDPN ---
Subjective Subjective Remarks Mr. Ambrocio is a 55-year-old male with past medical history significant for renal calculi status post bilateral ureteral stent placements as well as hypertension who presented to the emergency department to bilateral flank pain for the past 3 days. He also had shortness of breath and chest discomfort on admission. ID following for sepsis, pneumonia, legionella antigen positive, possible legionellosis with secondary bacterial infection. Overnight events reviewed. Afebrile. Off Rotaprone since this am. No rash No diarrhea Remains intubated. CXR left side infiltrate remarkably improved this am. Antibiotics Azithro IV Levaquin IV Cefepime IV Flagyl oral Lines Line sites with no e/o infection Past Medical History reviewed. 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 Vital Signs Date Time Temp Pulse Resp B/P Pulse Ox O2 Delivery O2 Flow Rate FiO2 07/13/16 11:27 95 45 07/13/16 08:00 76 174/91 195/91 07/13/16 08:00 97.6 71 18 174/91 93 195/91 07/13/16 07:42 94 45 07/13/16 06:00 74 07/13/16 04:03 95 45 07/13/16 04:00 66 138/76 158/59 07/13/16 04:00 66 07/13/16 04:00 45 07/13/16 04:00 98.4 66 18 138/76 90 158/59 07/13/16 02:00 66 07/13/16 01:05 96 45 07/13/16 00:00 45 07/13/16 00:00 98.4 68 18 119/64 93 153/62 07/13/16 00:00 70 07/13/16 00:00 80 119/64 153/62 07/12/16 22:12 98 45 07/12/16 22:00 80 07/12/16 20:00 70 07/12/16 20:00 80 170/98 188/84 07/12/16 20:00 50 07/12/16 20:00 97.6 80 18 170/97 92 188/84 07/12/16 19:45 97 50 07/12/16 18:00 69 07/12/16 16:00 86 140/82 169/73 07/12/16 16:00 86 07/12/16 16:00 97.6 86 18 140/82 95 169/73 07/12/16 16:00 50 07/12/16 15:54 95 50 07/12/16 14:00 101 07/12/16 07/12/16 07/13/16 15:00 23:00 07:00 Intake Total 1928 ml 852 ml 836 ml Output Total 1000 ml 2550 ml 1550 ml Balance 928 ml -1698 ml -714 ml IV Total 1248 ml 732 ml 716 ml Tube Feeding 140 ml 0 ml Tube Irrigant 300 ml Other 240 ml 120 ml 120 ml Output Urine Total 1000 ml 2050 ml 1150 ml Stool Total 500 ml 400 ml # Bowel Movements 1 . Laboratory Tests Test 07/12/16 07/13/16 03:20 04:30 White Blood Count 18.4 TH/MM3 16.5 TH/MM3 Red Blood Count 3.50 MIL/MM3 3.41 MIL/MM3 Hemoglobin 11.3 GM/DL 10.9 GM/DL Hematocrit 34.0 % 32.8 % Mean Corpuscular Volume 97.1 FL 96.1 FL Mean Corpuscular Hemoglobin 32.4 PG 31.9 PG Mean Corpuscular Hemoglobin 33.4 % 33.2 % Concent Red Cell Distribution Width 14.5 % 14.5 % Platelet Count 360 TH/MM3 379 TH/MM3 Mean Platelet Volume 8.2 FL 7.9 FL Neutrophils (%) (Auto) 92.6 % 91.7 % Lymphocytes (%) (Auto) 1.4 % 2.6 % Monocytes (%) (Auto) 5.8 % 5.5 % Eosinophils (%) (Auto) 0.0 % 0.1 % Basophils (%) (Auto) 0.2 % 0.1 % Neutrophils # (Auto) 17.1 TH/MM3 15.1 TH/MM3 Lymphocytes # (Auto) 0.3 TH/MM3 0.4 TH/MM3 Monocytes # (Auto) 1.1 TH/MM3 0.9 TH/MM3 Eosinophils # (Auto) 0.0 TH/MM3 0.0 TH/MM3 Basophils # (Auto) 0.0 TH/MM3 0.0 TH/MM3 CBC Comment AUTO DIFF AUTO DIFF Differential Total Cells 100 Counted Neutrophils % (Manual) 84 % Band Neutrophils % 9 % Lymphocytes % 2 % Monocytes % 3 % Neutrophils # (Manual) 17.5 TH/MM3 Metamyelocytes 1 % Myelocytes 1 % Differential Comment FINAL DIFF AUTO DIFF MANUAL CONFIRMED Platelet Estimate NORMAL Platelet Morphology Comment NORMAL Red Cell Morphology Comment Laboratory Tests Test 07/11/16 07/12/16 07/12/16 07/13/16 13:05 03:20 17:40 04:30 Total Protein 5.8 GM/DL 6.6 GM/DL 6.2 GM/DL Albumin 2.08 GM/DL 1.8 GM/DL Albumin/Globulin Ratio 0.56 Whydg-8-Eedbmwkeu 0.60 GM/DL Bxera-9-Zlalxgtfj 1.54 GM/DL Beta Globulins 0.88 GM/DL Gamma Globulins 0.70 GM/DL Sodium Level 143 MEQ/L 149 MEQ/L Potassium Level 4.2 MEQ/L 4.2 MEQ/L 3.8 MEQ/L Chloride Level 109 MEQ/L 113 MEQ/L Carbon Dioxide Level 25.6 MEQ/L 27.1 MEQ/L Anion Gap 8 MEQ/L 9 MEQ/L Blood Urea Nitrogen 79 MG/DL 82 MG/DL Creatinine 3.21 MG/DL 2.79 MG/DL Estimat Glomerular Filtration 20 ML/MIN 24 ML/MIN Rate Random Glucose 148 MG/DL 130 MG/DL Calcium Level 7.5 MG/DL 7.4 MG/DL Phosphorus Level 5.0 MG/DL 3.0 MG/DL Magnesium Level 2.9 MG/DL Total Bilirubin 0.3 MG/DL Aspartate Amino Transf 71 U/L (AST/SGOT) Alanine Aminotransferase 54 U/L (ALT/SGPT) Alkaline Phosphatase 92 U/L Protein Corrected Calcium 7.9 MG/DL Imaging Last Impressions Chest X-Ray 07/09/16 0000 Signed Impressions: Service Date/Time: Saturday, July 09, 2016 10:44 - CONCLUSION: Left subclavian central line tip is in the superior aspect of the SVC. No pneumothorax is visualized. Otherwise, stable exam. Patel Palmer MD Abdomen/Pelvis CT 07/07/16 1110 Signed Impressions: Service Date/Time: Thursday, July 07, 2016 11:31 - CONCLUSION: 1. Renal stones and stents in good position as described above. Yosvany Fuentes MD FACR Chest CT 07/07/16 0000 Signed Impressions: Service Date/Time: Thursday, July 07, 2016 16:09 - CONCLUSION: 1. Consolidative changes in the left upper lobe. There is suspicious adenopathy in the mediastinum. This may be more than an inflammatory process. 2. Bronchoscopy may be the easiest way to make a diagnosis of a neoplastic process. Yosvany Fuentes MD FACR Physical Exam GENERAL: Obese. Well nourished. Well built. Eyes edema, subconjunctival edema much reduced today. SKIN: No rashes. Cool and dry. No areas of peripheral skin necrosis. HEAD: grossly NAD. ENT: Intubated. CARDIOVASCULAR: HS audible. No murmur appreciated. RESPIRATORY: Breath sounds diminished bilaterally posteriorly. GASTROINTESTINAL: soft, NT MUSCULOSKELETAL: No pedal edema. Joints ok. NEUROLOGICAL: Sedated. Psych could not be assessed IV line sites with no evidence of infection. Assessment & Plan Remarks Severe sepsis present on admission(criteria explained in history of present illness) Pneumonia present on admission (community acquired, atypical, possible component of healthcare associated pneumonia) Likely Legionella Pneumonia with ARDS at this point. At risk for aspiration during prone periods. Bilateral ureteral stents. Acute renal failure present on admission likely sepsis, AIN, ATN. Acute metabolic encephalopathy: likely secondary to sepsis Recommendations: Sputum cultures negative. Continue Azithromycin IV (will likely need 3 weeks or more) Continue Levaquin IV (will likely need 3 weeks or more) Continue Cefepime 2 gm IV q24hrs (renal dose adjusted by me) Continue flagyl oral (aspiration risk) Follow cultures Follow clinically d/w RN Brenda Walsh MD Jul 13, 2016 12:50 Brenda Walsh MD Jul 13, 2016 12:50
[2016-07-13] MEDS: ARTIFICIAL TEARS OPTH OINT 3.5 APPLIC/3.5 GM TUBO EACH EYE SCH ×2 (12:57→21:28)
--- NOTE | 2016-07-13 13:43 | HHI.NPPN ---
Subjective Renal Failure: Acute Interval History He is off the rotoprone bed. Remains intubated, sedated on vent. Family at bedside. Renal function is better but sodium is now 149. He is demonstrating fluid overload, weighed this morning at 99kg. (Chiquita Sher) Review of Systems General General Remarks unable to obtain due to intubation/sedation (Chiquita Sher) Objective Data Data 07/12/16 07/13/16 19:00 07:00 Intake Total 1928 ml 1688 ml Output Total 2000 ml 3100 ml Balance -72 ml -1412 ml IV Total 1248 ml 1448 ml Tube Feeding 140 ml 0 ml Tube Irrigant 300 ml Other 240 ml 240 ml Output Urine Total 2000 ml 2200 ml Stool Total 900 ml # Bowel Movements 1 Vital Signs Date Time Temp Pulse Resp B/P Pulse Ox O2 Delivery O2 Flow Rate FiO2 07/13/16 11:27 95 45 07/13/16 08:00 76 174/91 195/91 07/13/16 08:00 97.6 71 18 174/91 93 195/91 07/13/16 07:42 94 45 07/13/16 06:00 74 07/13/16 04:03 95 45 07/13/16 04:00 66 138/76 158/59 07/13/16 04:00 66 07/13/16 04:00 45 07/13/16 04:00 98.4 66 18 138/76 90 158/59 07/13/16 02:00 66 07/13/16 01:05 96 45 07/13/16 00:00 45 07/13/16 00:00 98.4 68 18 119/64 93 153/62 07/13/16 00:00 70 07/13/16 00:00 80 119/64 153/62 07/12/16 22:12 98 45 07/12/16 22:00 80 07/12/16 20:00 70 07/12/16 20:00 80 170/98 188/84 07/12/16 20:00 50 07/12/16 20:00 97.6 80 18 170/97 92 188/84 07/12/16 19:45 97 50 07/12/16 18:00 69 07/12/16 16:00 86 140/82 169/73 07/12/16 16:00 86 07/12/16 16:00 97.6 86 18 140/82 95 169/73 07/12/16 16:00 50 07/12/16 15:54 95 50 07/12/16 14:00 101 (Chiquita Sher) -: 07/13/16 0430 07/13/16 0430 Imaging Last 72 hours Impressions Chest X-Ray 07/13/16 0000 Signed Impressions: Service Date/Time: June 06:57 - CONCLUSION: ET tube remains above the farooq. Rest of better defined consolidation opacity in the left upper lobe and progressive consolidation posterior basilar segment left lower lobe. Johan Smith MD Chest X-Ray 07/12/16 0600 Signed Impressions: Service Date/Time: Tuesday, July 12, 2016 03:52 - CONCLUSION: Bilateral scattered pulmonary infiltrates about the same compared to the prior exam, left greater than right. Elgin Levin MD Soft Tissue Ultrasound 07/12/16 0000 Signed Impressions: Service Date/Time: Tuesday, July 12, 2016 19:25 - CONCLUSION: Well- defined heterogeneous mass which is nonspecific but likely represents a sebaceous cyst. Alexandro De La O MD Abdomen X-Ray 07/12/16 0000 Signed Impressions: Service Date/Time: Tuesday, July 12, 2016 16:59 - CONCLUSION: Nonspecific, benign abdomen appearance. Patel Torres MD Chest X-Ray 07/11/16 0500 Signed Impressions: Service Date/Time: Monday, July 11, 2016 05:44 - CONCLUSION: 1. Slight improved aeration of the consolidation in the left upper lung. 2. Stable infiltrate in the right upper lung. 3. No significant changes. Elgin Levin MD Tubes & Lines: Khan Tubes & Lines Comment NG tube, A line , rectal tube Drip Comment fentanyl, versed, propofol (Chiquita Sher) Physical Exam General Appearance: Well Developed Appearance Remarks sedated/on vent (Chiquita Sher) Eyes Eye Exam: Pupils Equal (Chiquita Sher) Ears & Nose Ears & Nose Remarks periorbital and facial edema (Chiquita Sher) Neck Neck Exam: Neck Supple (Chiquita Sher) Pulmonary Resp Exam: Crackles, Rhonchi, Sputum, Decreased Bases Resp Remarks right lung diminished lung sounds, no wheezing, bronchial left lung sounds with scattered rales (Chiquita Sher) Cardiology CV Exam: Regular, Normal Sinus Rhythm (Chiquita Sher) Gastrointestinal/Abdomen GI Exam: Soft, Non-Tender, Bowel Sounds Present (Chiquita Sher) Musculoskeletal MS Exam: Joints Intact, Normal Tone (Chiquita Sher) Integumentary Skin Exam: Warm, Dry Skin Remarks left chest skin tear from previous bed; scattered areas of breakdown (Chiquita Sher) Extremeties Extremities Exam: Pedal Pulses Palpable (Chiquita Sher) Neurologic Neuro Exam: Unresponsive, Sedated (Chiquita Sher) VTE Prophylaxis Device: SCDs (Chiquita Sher) Assessment/Plan Discussed Condition With: Daughter Assessment Summary: JASON/Acute Renal Failure, Fluid/Volume Overload Electrolyte Assessment: Hypernatremia Problem List: (1) Acute renal failure Plan: His creatinine was 1.13 on 07/08 he became septic around that time with BP 70/30s, started on pressors JASON due to decreased renal perfusion (sepsis), possibly AIN, or ATN he is non oliguric creatinine has improved less than 1 g proteinuria, serologies still in process, GONZALO and complement levels normal weight up 5 kg since admission, was on Bumex, will change to Diuril in light of hypernatremia avoid IVF for now pressors if needed to maintain MAP > 65 mmHg at this time monitor his renal function, he may require dialysis if renal function worsens avoid known nephrotoxins daily renal panel (2) Sepsis Plan: due to legionella, ARDS WBC trending down, he is afebrile, recent blood cultures are negative he is on Zithromax, Cefepime, Levaquin, and Flagyl with nebulizers CXR with improvement reduce antimicrobials and renally dose when appropriate ID following,clinically he is improving (3) Left flank pain Plan: with non obstructing stone s/p previous bilateral ureteral stent placement, may need lithotripsy and stent removal in future urology has evaluated (4) Hypernatremia Plan: trial of Diuril free water through tube feeding (Chiquita Sher) Plan patient was seen and examined. Agree with above assessment and plan. Renal function has improved. Free water for hypernatremia. Add Diuril. (Harvey Handley MD) Chiquita Sher Jul 13, 2016 13:43 Harvey Handley MD Jul 13, 2016 15:04
[2016-07-13] MEDS: CEFEPIME INJ 2,000 MG in SODIUM CHLORIDE 0.9% INJ 100 ML IV SCH (14:56)
[2016-07-13 15:54] LABS: MYELOPEROXIDASE LESS THAN 1.0 AI (<1.0); PROTEINASE-3 LESS THAN 1.0 AI (<1.0)
[2016-07-13] MEDS ORDERED: CHLOROTHIAZIDE SOD 500 MG VIAL IV ONE (17:00)
[2016-07-13] MEDS: REMOVE OLD NICODERM (NICOTINE) PATCH TD SCH (21:00)
[2016-07-13] MEDS: ATORVASTATIN 80 MG TAB PO SCH (21:27)
[2016-07-14] VITALS (23 sets, daily range): BP systolic 100–171; BP diastolic 18–91; PULSE 91–114; RESP 18; TEMP 98.4–99.2; O2SAT 90–95
[2016-07-14] MEDS: fentaNYL DRIP 250 ML IV SCH ×3 (01:26→22:50)
[2016-07-14] MEDS: INSULIN NovoLIN REGULAR SUPPLEMENTAL SCALE SQ SCH ×4 (01:26→17:28)
[2016-07-14] MEDS: PROPOFOL 1000 MG/100 ML INJ 100 ML IV SCH ×6 (01:26→22:50)
[2016-07-14] MEDS: hydrALAZINE HCL 50 MG TAB PO SCH ×3 (01:27→17:26)
[2016-07-14] MEDS: RESP: ALBUTEROL 2.5 MG/IPRATROPIUM 0.5 MG NEB (SCH) NEB ×6 (03:43→23:30)
[2016-07-14] MEDS: FREE WATER OG-TUBE SCH ×7 (04:00→23:22)
--- NOTE | 2016-07-14 05:09 | RADRPT ---
EXAM DATE/TIME: 07/14/2016 03:20 [facility] COMPARISON: CHEST SINGLE AP, July 13, 2016, 6:57. INDICATIONS : Shortness of breath. MEDICAL HISTORY : Hypertension. Chronic obstructive pulmonary disease. Gastroesophageal reflux disease. SURGICAL HISTORY : None. ENCOUNTER: Subsequent ACUITY: 1 week PAIN SCORE: Non-responsive. LOCATION: Bilateral chest FINDINGS: Right lung is clear. There is persistent left upper lobe opacification and patchy left lower lobe air space disease. Endotracheal tube in satisfactory position. Left subclavian line tip overlies the SVC. NG tube courses beneath the diaphragm. There is increased airspace disease in the left lower lobe. CONCLUSION: Worsening left lower lobe airspace disease otherwise stable. Andi Parra MD on July 14, 2016 at 5:07 Board Certified Radiologist. This report was verified electronically.
[2016-07-14] MEDS: metroNIDAZOLE 500 MG TAB PO SCH ×3 (05:36→22:51)
[2016-07-14] MEDS: METOCLOPRAMIDE HCL 10 MG/2 ML VIAL IV SCH ×3 (05:36→22:52)
[2016-07-14] MEDS: MIDAZOLAM 100 MG/NS 100 ML DRIP Premix IV SCH ×3 (05:36→22:51)
[2016-07-14] MEDS: methylPREDNISolone SOD SUCC 40 MG/1 ML VIAL IV PUSH SCH ×2 (05:36→17:26)
[2016-07-14] MEDS: METOPROLOL TARTRATE 25 MG TAB PO SCH ×3 (05:36→22:52)
[2016-07-14 06:21] LABS: AUTOMATED NEUTROPHIL # 13.5 TH/MM3 (1.8-7.7); BASOPHIL % 0.1 % (0.0-2.0); EOSINOPHIL # 0.1 TH/MM3 (0-0.4); EOSINOPHIL % 0.8 % (0.0-4.0); HEMATOCRIT 31.3 % (39.0-51.0); LYMPH % 3.8 % (9.0-44.0); LYMPHOCYTE # 0.6 TH/MM3 (1.0-4.8); MEAN CELL VOLUME 95.9 FL (80.0-100.0); MEAN CORPUSCULAR HEMOGLOBIN 33.2 PG (27.0-34.0); MEAN CORPUSCULAR HGB CONC 34.7 % (32.0-36.0); MONO % 5.5 % (0.0-8.0); NEUT % 89.8 % (16.0-70.0); PLATELET COUNT 373 TH/MM3 (150-450); RED BLOOD COUNT 3.27 MIL/MM3 (4.50-5.90); RED CELL DISTRIBUTION WIDTH 14.5 % (11.6-17.2)
[2016-07-14 06:23] LABS: HEMO FLAGS AUTO DIFF
[2016-07-14 06:56] LABS: ALKALINE PHOSPHATASE 88 U/L (45-117); ALT (GPT) 82 U/L (12-78); ANION GAP 9 MEQ/L (5-15); AST (GOT) 79 U/L (15-37); BLOOD UREA NITROGEN 98 MG/DL (7-18); CHLORIDE 111 MEQ/L (98-107); GLOMERULAR FILTRATION RATE 20 ML/MIN (>89); MAGNESIUM 3.4 MG/DL (1.5-2.5); POTASSIUM 4.1 MEQ/L (3.5-5.1); SODIUM (NA) 148 MEQ/L (136-145); TOTAL BILIRUBIN ADULT 0.3 MG/DL (0.2-1.0)
--- NOTE | 2016-07-14 07:14 | HHI.CCPN ---
Subjective Remarks/Hospital Course The patient is a 55-year-old male with a past medical history of hypertension, renal calculi, status post bilateral ureteral stent placement in April, . He presented to [facility] ED with a three-day history of bilateral flank pain associated with fever and severe body aches. Just prior to admission, the patient had gross hematuria per his daughter and had decreased p.o. intake. The patient denied any shortness of breath or chest pain. Due to his abdominal pain, a CT scan of the abdomen and pelvis was obtained which showed renal stones and stent in place. An initial chest x-ray in the ED showed extensive airspace disease throughout the left upper lobe characteristic of pneumonia. He subsequently underwent a CT scan of the chest which showed consolidative changes in the left upper lobe along with suspicious adenopathy in the mediastinum. His initial creatinine level was 1.6 and the patient was placed on broad-spectrum antibiotics in addition to IV fluids. His laboratory data from today showed improvement of his renal function with a creatinine of 1.30 and lactic acid level measured at 1.0. [facility] was called for respiratory distress and the patient was a nonrebreather mask and transferred to [facility]. When seen in the ICU he was tachypneic, tachycardic and had a temperature of 103. The patient was subsequently intubated by myself and placed on full mechanical ventilation. A chest x-ray post intubation showed severe diffuse left lung airspace consolidation and a new mild consolation versus atelectasis in the right midlung zone. His nasal washing on arrival negative for influenza, and blood cultures and urine culture from yesterday showed no growth to date. The patient had a temperature of 102.8 earlier today. 07/09 Patient is sedated with versed, Fentanyl and intubated. Now on PRVC with RR 20, TV 550, IT:1, PEEP:15 and FIO2 100%. Afebrile. His Legionella urinary AG is positive. Renal function worse today with Cr 1.86 from 1.30 07/10: Patient remains very critical. Placed on Prone therapy yesterday for worsening respiratory status and severe hypoxia. Worsening renal function- creatinine increased from 1.8-2.8 today, urology following, will consult nephrology. Remains on 4 mics per minute of Levophed, urine output adequate 1.9 L in 24 hours. Currently on broad-spectrum antibiotics per ID on Zosyn and azithromycin Zyvox. I have added Levaquin for double coverage for Legionella 07/11: Remains intubated sedated. FiO2 at 50%. Chest x-ray shows bilaterally improving aeration. We'll reduce PEEP to 12. Urine output is adequate but creatinine has increased to 3. 07/12: Patient remains on prone therapy, remains critically ill but slowly his improving oxygenation. Currently on 10 of PEEP and 50% oxygen. Urine output is 1.7 L in 24 hours, increase in BUN to 79 creatinine is 3.2. We'll start weaning and starting today 07/13: Remains critically ill, but showing continued signs of improvement. UO >4L , Cr improved from 3.2 to 2.8. On weaning doses of Flolan. Maintaining oxygen saturation above 90% on 45% FiO2. WBC count is trending down. Will discontinue prone therapy today 07/14 Patient is off Rotoprone bed on ACV with RR 18, TV 600, PEEP: 10 and FIO2 50%. Sedated with Diprivan/Fentanyl and Versed. Afebrile.Renal function worse today with Cr: 3.17 today from 2.79 with UO 3600ml in 24 hrs. Objective Vital Signs Date Time Temp Pulse Resp B/P Pulse Ox O2 Delivery O2 Flow Rate FiO2 07/14/16 06:00 101 07/14/16 04:26 93 50 07/14/16 04:00 99.2 18 106/57 123/67 07/10/16 19:00 Mechanical Ventilator Intake and Output 07/13/16 07/13/16 07/14/16 08:00 16:00 00:00 Intake Total 836 ml 1250 ml 897 ml Output Total 1550 ml 1800 ml 1500 ml Balance -714 ml -550 ml -603 ml Result Diagram: 07/14/16 0405 07/14/16 0405 Other Results Laboratory Tests Test 07/14/16 04:05 White Blood Count 15.0 TH/MM3 Red Blood Count 3.27 MIL/MM3 Hemoglobin 10.9 GM/DL Hematocrit 31.3 % Mean Corpuscular Volume 95.9 FL Mean Corpuscular Hemoglobin 33.2 PG Mean Corpuscular Hemoglobin 34.7 % Concent Red Cell Distribution Width 14.5 % Platelet Count 373 TH/MM3 Mean Platelet Volume 8.7 FL Neutrophils (%) (Auto) 89.8 % Lymphocytes (%) (Auto) 3.8 % Monocytes (%) (Auto) 5.5 % Eosinophils (%) (Auto) 0.8 % Basophils (%) (Auto) 0.1 % Neutrophils # (Auto) 13.5 TH/MM3 Lymphocytes # (Auto) 0.6 TH/MM3 Monocytes # (Auto) 0.8 TH/MM3 Eosinophils # (Auto) 0.1 TH/MM3 Basophils # (Auto) 0.0 TH/MM3 CBC Comment AUTO DIFF Sodium Level 148 MEQ/L Potassium Level 4.1 MEQ/L Chloride Level 111 MEQ/L Carbon Dioxide Level 28.0 MEQ/L Anion Gap 9 MEQ/L Blood Urea Nitrogen 98 MG/DL Creatinine 3.17 MG/DL Estimat Glomerular Filtration 20 ML/MIN Rate Random Glucose 138 MG/DL Calcium Level 7.7 MG/DL Magnesium Level 3.4 MG/DL Total Bilirubin 0.3 MG/DL Aspartate Amino Transf 79 U/L (AST/SGOT) Alanine Aminotransferase 82 U/L (ALT/SGPT) Alkaline Phosphatase 88 U/L Total Protein 6.2 GM/DL Albumin 1.7 GM/DL Imaging Last Impressions Chest X-Ray 07/14/16 0600 Signed Impressions: Service Date/Time: Thursday, July 14, 2016 03:20 - CONCLUSION: Worsening left lower lobe airspace disease otherwise stable. Andi Parra MD Soft Tissue Ultrasound 07/12/16 0000 Signed Impressions: Service Date/Time: Tuesday, July 12, 2016 19:25 - CONCLUSION: Well- defined heterogeneous mass which is nonspecific but likely represents a sebaceous cyst. Alexandro De La O MD Abdomen X-Ray 07/12/16 0000 Signed Impressions: Service Date/Time: Tuesday, July 12, 2016 16:59 - CONCLUSION: Nonspecific, benign abdomen appearance. Patel Torres MD Abdomen/Pelvis CT 07/07/16 1110 Signed Impressions: Service Date/Time: Thursday, July 07, 2016 11:31 - CONCLUSION: 1. Renal stones and stents in good position as described above. Yosvany Fuentes MD FACR Chest CT 07/07/16 0000 Signed Impressions: Service Date/Time: Thursday, July 07, 2016 16:09 - CONCLUSION: 1. Consolidative changes in the left upper lobe. There is suspicious adenopathy in the mediastinum. This may be more than an inflammatory process. 2. Bronchoscopy may be the easiest way to make a diagnosis of a neoplastic process. Yosvany Fuentes MD FACR Objective Remarks GENERAL: Patient is 55 yo critically ill intubated and sedated. SKIN: Warm and dry. HEAD: Normocephalic. EYES: No injection or drainage. NECK: Supple, trachea midline. Orally intubated CARDIOVASCULAR: Regular rate and rhythm without murmurs, gallops, or rubs. RESPIRATORY: Breath sounds equal bilaterally with few coarse BS GASTROINTESTINAL: Abdomen soft, non-tender, nondistended. MUSCULOSKELETAL: No cyanosis, or edema. NEURO: Sedated,intubated A/P Assessment and Plan PROBLEM LIST Acute hypoxemic respiratory failure Septic shock ARDS Multilobar Legionella pneumonia Acute kidney failure Acute metabolic encephalopathy Urinary tract infection History of renal calculi with bilateral ureteral stent placement in April History of hypertension Leukocytosis Mild hyponatremia Plan Neuro: -On Versed, Fentanyl and Diprivan infusion for sedation. off Nimbex discontinued 07/13 -Continue with thiamine 100 mg daily. Continue close neuro monitoring -Start daily sedation vacation Pulm: -off Prone therapy for severe ARDS initiated 07/09/16. Discontinued 07/13/16 -Continue with vent support keep sat >92%. Decrease FIO2 40% as edmond. -Bronchodilators, Solumederol 40mg q12, pulm is following-Dr. Jaimes -ICU vent bundle, CV: -Monitor HR and BP keep MAP>65mmHg. Lactic acid level measured at 1.4 -2D echo 07/10/16-EF 60%, moderate LVH -On Hydralazine 50mg Q8, Norvasc 10mg daily, increase Metoprolol 50mg Q8 : -Nephrology Dr. Handley following for worsening renal function. -Off Bumex. -Urology service consulted for hx flank pain and renal calculi with ureteral stent placement-CT abdomen pelvis showed stents in good position -Acute kidney failure could be related to severe sepsis and hypotension -Monitor renal function, Is and Os and electrolyte replacement as needed. -Cr worse today 3.17 from 2.79 with UO 3600ml in 24 hrs -On Free water 300ml Q4, monitor Na level. GI: -On tube feeds- Glucerna 1.5@20ml/hr, Protonix 40mg IV daily for GI prophylaxis -Bowel regimen with Colace and senna. Had BM 07/12 -Continue Reglan ID: -Continue with ABX per ID Continue Azithromycin IV, Levaquin IV, Cefepime 2 gm IV q24hrs and Flagyl oral -07/08 Legionella urinary antigen positive. -07/07 BC : GPC 06/21 bottles-coag neg staph, probable contaminant Endo: -SSI with Accu-Chek q.6 hours for glycemic control Heme: -Monitor CBC. Proph: -GI prophylaxis with Protonix 40 mg daily and DVT prophylaxis with SCDs and Lovenox subcu. Lines: -Peripheral IV, L subclavian central line 07/09/16 Remains critically ill with severe ARDS from Legionella pneumonia. In addition patient has acute hypoxemic respiratory failure, severe sepsis and acute renal failure. His prognosis is guarded at this time CCT 40 mins Nata Choi MD Jul 14, 2016 07:14
[2016-07-14 08:01] LABS: PLATELET ESTIMATE SMEAR NORMAL (NORMAL); PLATELET MORPHOLOGY NORMAL (NORMAL); SCAN/DIFF AUTO DIFF CONFIRMED
[2016-07-14] MEDS: ENOXAPARIN SODIUM 30 MG/0.3 ML SYRINGE SQ SCH (08:27)
[2016-07-14] MEDS: PANTOPRAZOLE SODIUM 40 MG VIAL IV PUSH SCH (08:27)
[2016-07-14] MEDS: ACETAMINOPHEN/HYDROcodone 325 MG/5 MG TAB PO PRN ×2 (08:27→12:41)
[2016-07-14] MEDS: ONDANSETRON HCL 4 MG/2 ML VIAL IV PUSH SCH (08:27)
[2016-07-14] MEDS: SENNOSIDES SYRUP 8.8 MG/5 ML CUP OG SCH ×2 (08:27→22:51)
[2016-07-14] MEDS: DOCUSATE SODIUM 100 MG/10 ML UDC OG SCH ×2 (08:27→22:51)
[2016-07-14] MEDS: LEVOFLOXACIN 750 MG PREMIX INJ 150 ML IV SCH (08:28)
[2016-07-14] MEDS: THIAMINE HCL 100 MG TAB PO SCH (08:28)
[2016-07-14] MEDS: NICOTINE 21 MG/24 HR PATCH TD SCH (08:28)
[2016-07-14] MEDS: ARTIFICIAL TEARS OPTH OINT 3.5 APPLIC/3.5 GM TUBO EACH EYE SCH ×2 (08:28→22:51)
[2016-07-14] MEDS: SODIUM CHLORIDE 0.9% FLUSH 5 ML FLUSH FLUSH SCH ×2 (08:29→22:52)
--- NOTE | 2016-07-14 09:20 | HHI.FPPN ---
Subjective Remarks No events overnight. Afebrile. BPs 100s-130s/50s-60s. 3600 mL of UOP. Remains sedated on [facility] vent. (Matias Lewis MD R1) Objective Vitals Vital Signs Date Time Temp Pulse Resp B/P Pulse Ox O2 Delivery O2 Flow Rate FiO2 07/14/16 08:04 94 50 07/14/16 06:00 101 07/14/16 04:26 93 50 07/14/16 04:00 99.2 93 18 106/57 93 123/67 07/14/16 04:00 93 07/14/16 04:00 50 07/14/16 04:00 93 106/57 123/67 07/14/16 02:00 101 07/14/16 01:56 93 50 07/14/16 00:00 94 07/14/16 00:00 98.6 94 18 103/58 92 117/66 07/14/16 00:00 94 103/58 117/66 07/14/16 00:00 50 07/13/16 22:00 101 07/13/16 20:00 50 07/13/16 20:00 89 07/13/16 20:00 89 109/61 127/65 07/13/16 20:00 98.4 89 18 109/61 95 127/65 07/13/16 19:40 94 50 07/13/16 18:00 88 07/13/16 18:00 50 07/13/16 16:12 94 50 07/13/16 16:00 84 07/13/16 16:00 73 110/60 133/65 07/13/16 16:00 98.6 73 19 110/60 94 133/65 07/13/16 14:00 59 07/13/16 14:00 50 07/13/16 13:00 61 07/13/16 12:00 98.7 72 18 98/50 96 128/58 07/13/16 12:00 72 07/13/16 12:00 72 98/55 128/58 07/13/16 11:27 95 45 07/13/16 11:00 71 07/13/16 10:00 68 I/O 07/13/16 07/13/16 07/13/16 07/14/16 07/14/16 07/14/16 07:00 15:00 23:00 07:00 15:00 23:00 Intake Total 836 ml 1250 ml 897 ml 1064 ml Output Total 1550 ml 1800 ml 1500 ml 1000 ml Balance -714 ml -550 ml -603 ml 64 ml IV Total 716 ml 850 ml 584 ml 368 ml Tube Feeding 53 ml 236 ml Other 120 ml 400 ml 260 ml 460 ml Output Urine Total 1150 ml 1500 ml 1300 ml 800 ml Stool Total 400 ml 300 ml 200 ml 200 ml (Matias Lewis MD R1) Result Diagram: 07/14/1640407/14/16404 Objective Remarks GEN: Well-developed, well-nourished patient. Sedated and intubated on [facility] vent , supine position. CV: Distant heart sounds are difficult to hear due to upper airway noise but sounds to be in regular rate and rhythm without obvious murmurs or rubs. LUNGS: Coarse breath sounds bilaterally but with good air movement. ABD: Distended but soft. : good urine output in [place] NEURO/PSYCH: Sedated (Matias Lewis MD R1) A/P Assessment and Plan 55 year old male with h/o HTN, renal calculi, s/p bilateral ureteral stent placements presented due to bilateral flank pain more significant on the left x 3 days, admitted for left-sided pneumonia, sepsis, possible UTI. Critical care was consulted on 07/08 due to acute worsening of symptoms associated with respiratory distress. Neuro: Sedated due to intubation, acute metabolic encephalopathy -On Versed, Fentanyl, and propofol for sedation. -Nimbex discontinued 07/13 -ABG was showing metabolic acidosis for permissive hypercapnia but has now resolved with vent changes -Daily sedation vacation Pulm: Left legionella pneumonia, severe ARDS, respiratory distress, COPD, suspicious adenopathy in the mediastinum -Discontinued prone position 07/09/16-07/13/16 Pulmonary consulted: appreciate recommendations * Will require bronchoscopic examination -Currently on PEEP of 10, FiO2 of 50%, RR 18, TV 600 Imaging: * CXR 07/14: Worsening left lower lobe airspace disease * CXR 07/13: Better defined consolidation opacity in the left upper lobe and progressive consolidation posterior basilar segment left lower lobe. * CXR 07/09: Persistent severe diffuse left lung air space consolidation with likely left pleural effusion. Stable subtle airspace consolidation/opacity the in the right midlung * Chest CT: Consolidative changes in the left upper lobe. There is suspicious adenopathy in the mediastinum. This may be more than an inflammatory process Medications: * Albuterol and Duonebs * Solu-Medrol, 40mg Q12 * Flolan 50ng/kg/min neb solution at 8ml/hr Cardiac: HLD, HTN -ACS negative -Echo 07/10: Mild to moderate LVH, normal systolic function, ejection fraction estimated to be 60%. No regional wall motion abnormalities. Mild mitral valve regurgitation. -Keep MAP > 65 mmHg Medications: * Amlodipine 10 mg * Hydralazine 50mg PO q8 and PRN * Metoprolol 25 mg q8 * Atorvastatin 80 mg * Labetalol 20 mg PRN : S/P bilateral ureteral stents, JASON -Creatinine uptrending to 3.17. Good UOP over past 24 hrs Urology consulted: Appreciate recommendations * Once clinical picture improves, may remove stents versus attempted attempted ureteroscopy and laser lithotripsy * Will follow Nephrology consulted: appreciate recommendations * JASON likely due to decreased renal perfusion GI: -On tube feeds- Glucerna -Metoclopramide schedule q8 -Protonix 40mg IV daily for GI prophylaxis ID: Legionella pneumonia, leukocytosis, septic shock, -Leukocytosis improving, still receiving steroids -Afebrile since 07/09 -Legionella antigen positive in urine -1 of 2 blood culture on 07/07 positive for staph S/P coagulase-negative, likely due to contamination -Repeat blood cultures, sputum cultures, urine cx NGTD -urine eosinophils none seen ID consulted: Appreciate recommendations * Cefepime 07/11 * Flagyl 07/11 * Azithromycin 07/08- * Levaquin 07/10- Discontinued ABX: * Zyvox 07/09-07/11 * Zosyn 07/07-07/11 * Vancomycin 07/07-07/09, discontinued due to concern for drug fever and allegic interstitial nephritis Endo: SSI with Accu-Chek DVT Prophylaxis - Lovenox Discharge Planning Timetable unknown. Pending respiratory improvement. sanjuanita Diallo (Matias Lewis MD R1) Assessment and Plan Attending note: Patient seen and examined. Case reviewed and discussed with resident team. Agree with plan of care as discussed with physician and documented in the resident note. (Armando Diallo MD) Problem List: (1) Legionella pneumonia Status: Acute (2) Acute respiratory failure with hypoxia Status: Acute (3) Acute renal failure Status: Acute (4) Sepsis Status: Acute (5) COPD (chronic obstructive pulmonary disease) Status: Acute (Matais Lewis MD R1) Matias Lewis MD R1 Jul 14, 2016 09:20 Armando Diallo MD Jul 14, 2016 13:56
[2016-07-14] MEDS ORDERED: CHLOROTHIAZIDE SOD 500 MG VIAL IV ONE (10:00)
[2016-07-14] MEDS: AZITHROMYCIN INJ 500 MG in SODIUM CHLOR 0.9% 250 ML INJ 250 ML IV SCH (11:24)
--- NOTE | 2016-07-14 11:55 | HHI.NPPN ---
Subjective General Problems: Anemia, Edema Renal Failure: Acute Interval History Remains intubated, sedated/unresponsive. Continues to demonstrate fluid overload. Creatinine is worse today. Diuresing well. (Chiquita Sher) Review of Systems General General Remarks unable to obtain due to intubation/sedation (Chiquita Sher) Objective Data Data 07/13/16 07/14/16 19:00 07:00 Intake Total 1250 ml 1961 ml Output Total 1800 ml 2500 ml Balance -550 ml -539 ml IV Total 850 ml 952 ml Tube Feeding 289 ml Other 400 ml 720 ml Output Urine Total 1500 ml 2100 ml Stool Total 300 ml 400 ml Vital Signs Date Time Temp Pulse Resp B/P Pulse Ox O2 Delivery O2 Flow Rate FiO2 07/14/16 09:00 96 07/14/16 09:00 97 149/91 152/76 07/14/16 08:04 94 50 07/14/16 08:00 98.5 99 18 149/91 94 171/84 07/14/16 08:00 50 07/14/16 08:00 100 07/14/16 06:00 101 07/14/16 04:26 93 50 07/14/16 04:00 99.2 93 18 106/57 93 123/67 07/14/16 04:00 93 07/14/16 04:00 50 07/14/16 04:00 93 106/57 123/67 07/14/16 02:00 101 07/14/16 01:56 93 50 07/14/16 00:00 94 07/14/16 00:00 98.6 94 18 103/58 92 117/66 07/14/16 00:00 94 103/58 117/66 07/14/16 00:00 50 07/13/16 22:00 101 07/13/16 20:00 50 07/13/16 20:00 89 07/13/16 20:00 89 109/61 127/65 07/13/16 20:00 98.4 89 18 109/61 95 127/65 07/13/16 19:40 94 50 07/13/16 18:00 88 07/13/16 18:00 50 07/13/16 16:12 94 50 07/13/16 16:00 84 07/13/16 16:00 73 110/60 133/65 07/13/16 16:00 98.6 73 19 110/60 94 133/65 07/13/16 14:00 59 07/13/16 14:00 50 07/13/16 13:00 61 07/13/16 12:00 98.7 72 18 98/50 96 128/58 07/13/16 12:00 72 07/13/16 12:00 72 98/55 128/58 (Chiquita Sher) -: 07/14/16 0405 07/14/16 0405 Imaging Last 72 hours Impressions Chest X-Ray 07/14/16 0600 Signed Impressions: Service Date/Time: Thursday, July 14, 2016 03:20 - CONCLUSION: Worsening left lower lobe airspace disease otherwise stable. Andi Parra MD Chest X-Ray 07/13/16 0000 Signed Impressions: Service Date/Time: June 06:57 - CONCLUSION: ET tube remains above the farooq. Rest of better defined consolidation opacity in the left upper lobe and progressive consolidation posterior basilar segment left lower lobe. Johan Smith MD Chest X-Ray 07/12/16 0600 Signed Impressions: Service Date/Time: Tuesday, July 12, 2016 03:52 - CONCLUSION: Bilateral scattered pulmonary infiltrates about the same compared to the prior exam, left greater than right. Elgin Levin MD Soft Tissue Ultrasound 07/12/16 0000 Signed Impressions: Service Date/Time: Tuesday, July 12, 2016 19:25 - CONCLUSION: Well- defined heterogeneous mass which is nonspecific but likely represents a sebaceous cyst. Alexandro De La O MD Abdomen X-Ray 07/12/16 0000 Signed Impressions: Service Date/Time: Tuesday, July 12, 2016 16:59 - CONCLUSION: Nonspecific, benign abdomen appearance. Patel Torres MD Tubes & Lines: Khan Tubes & Lines Comment NG tube, A line , rectal tube Drip Comment fentanyl, versed, propofol (Chiquita Sher) Physical Exam General Appearance: Well Developed Appearance Remarks sedated/on vent (Chiquita Sher) Eyes Eye Exam: Pupils Equal (Chiquita Sher) Ears & Nose Ears & Nose Remarks periorbital and facial edema but improving (Chiquita Sher) Neck Neck Exam: Neck Supple (Chiquita Sher) Pulmonary Resp Exam: Crackles, Rhonchi, Sputum, Decreased Bases Resp Remarks right lung diminished lung sounds, no wheezing, bronchial left lung sounds with scattered rales (Chiquita Sher [facility] [employer] [employer]) Cardiology CV Exam: Regular, Normal Sinus Rhythm (Chiquita Sher) Gastrointestinal/Abdomen GI Exam: Soft, Non-Tender, Bowel Sounds Present (Chiquita Sher) Musculoskeletal MS Exam: Joints Intact, Normal Tone (Chiquita Sher) Integumentary Skin Exam: Warm, Dry Skin Remarks left chest skin tear from previous bed; scattered areas of breakdown (Chiquita Sher) Extremeties Extremities Exam: Pedal Pulses Palpable, Moderate Edema, Pitting Edema, Dependent Edema (Chiquita Sher) Neurologic Neuro Exam: Unresponsive, Sedated (Chiquita Sher) VTE Prophylaxis Device: SCDs (Chiquita Sher) Assessment/Plan Discussed Condition With: Daughter Assessment Summary: JASON/Acute Renal Failure, Fluid/Volume Overload Electrolyte Assessment: Hypernatremia Problem List: (1) Acute renal failure Plan: His creatinine was 1.13 on 07/08 he became septic around that time with BP 70/30s, started on pressors JASON due to decreased renal perfusion (sepsis), possibly AIN, or ATN he is non oliguric, excellent diuresis creatinine is worse today, which may be due to aggressive diuresis less than 1 g proteinuria, serologies negative including GONZALO, complement levels also normal, Serum protein electrophoresis negative demonstrating 13 kg weight gain, fluid overload, continue Diuril in light of hypernatremia avoid IVF for now pressors if needed to maintain MAP > 65 mmHg, not requiring at this time monitor his renal function, he may require dialysis if renal function worsens avoid known nephrotoxins, he is no steroids which may elevate BUN daily renal panel (2) Sepsis Plan: due to legionella, ARDS WBC trending down, he is afebrile, recent blood cultures are negative he is on Zithromax, Cefepime, Levaquin, and Flagyl with nebulizers serial CXR , latest showing worsening left lung consolidation reduce antimicrobials and renally dose when appropriate ID following,clinically he is improving (3) Hypernatremia Plan: continue Diuril, hold loop diuretics free water through tube feeding increased monitor serum sodium (4) Left flank pain Plan: with non obstructing stone s/p previous bilateral ureteral stent placement, may need lithotripsy and stent removal in future urology has evaluated (Chiquita Sher) Plan patient was seen and examined. Renal function is worse today, he is non oliguric. Consider allergic interstitial nephritis. Repeat UA. Continue free water. Hypernatremia has improved. Consider reducing the dose of Solumedrol. May need dialysis, but there is no immediate need. (Harvey Handley MD) Chiquita Sher Jul 14, 2016 11:55 Harvey Handley MD Jul 14, 2016 13:55
--- NOTE | 2016-07-14 14:59 | HHI.IDPN ---
Subjective Subjective Remarks Mr. Ambrocio is a 55-year-old male with past medical history significant for renal calculi status post bilateral ureteral stent placements as well as hypertension who presented to the emergency department to bilateral flank pain for the past 3 days. He also had shortness of breath and chest discomfort on admission. ID following for sepsis, pneumonia, legionella antigen positive, possible legionellosis with secondary bacterial infection. Overnight events reviewed. Afebrile. No rash No diarrhea Remains intubated on ventilator. Vent settings changed to increase PEEP as mucus plugging noted and CXR worse. Antibiotics Azithro IV Levaquin IV Cefepime IV Flagyl oral Lines Line sites with no e/o infection Past Medical History reviewed. 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 Vital Signs Date Time Temp Pulse Resp B/P Pulse Ox O2 Delivery O2 Flow Rate FiO2 07/14/16 12:50 93 60 07/14/16 09:00 96 07/14/16 09:00 97 149/91 152/76 07/14/16 08:04 94 50 07/14/16 08:00 98.5 99 18 149/91 94 171/84 07/14/16 08:00 50 07/14/16 08:00 100 07/14/16 06:00 101 07/14/16 04:26 93 50 07/14/16 04:00 99.2 93 18 106/57 93 123/67 07/14/16 04:00 93 07/14/16 04:00 50 07/14/16 04:00 93 106/57 123/67 07/14/16 02:00 101 07/14/16 01:56 93 50 07/14/16 00:00 94 07/14/16 00:00 98.6 94 18 103/58 92 117/66 07/14/16 00:00 94 103/58 117/66 07/14/16 00:00 50 07/13/16 22:00 101 07/13/16 20:00 50 07/13/16 20:00 89 07/13/16 20:00 89 109/61 127/65 07/13/16 20:00 98.4 89 18 109/61 95 127/65 07/13/16 19:40 94 50 07/13/16 18:00 88 07/13/16 18:00 50 07/13/16 16:12 94 50 07/13/16 16:00 84 07/13/16 16:00 73 110/60 133/65 07/13/16 16:00 98.6 73 19 110/60 94 133/65 07/13/16 07/13/16 07/14/16 15:00 23:00 07:00 Intake Total 1250 ml 897 ml 1064 ml Output Total 1800 ml 1500 ml 1000 ml Balance -550 ml -603 ml 64 ml IV Total 850 ml 584 ml 368 ml Tube Feeding 53 ml 236 ml Other 400 ml 260 ml 460 ml Output Urine Total 1500 ml 1300 ml 800 ml Stool Total 300 ml 200 ml 200 ml . Laboratory Tests Test 07/13/16 07/14/16 04:30 04:05 White Blood Count 16.5 TH/MM3 15.0 TH/MM3 Red Blood Count 3.41 MIL/MM3 3.27 MIL/MM3 Hemoglobin 10.9 GM/DL 10.9 GM/DL Hematocrit 32.8 % 31.3 % Mean Corpuscular Volume 96.1 FL 95.9 FL Mean Corpuscular Hemoglobin 31.9 PG 33.2 PG Mean Corpuscular Hemoglobin 33.2 % 34.7 % Concent Red Cell Distribution Width 14.5 % 14.5 % Platelet Count 379 TH/MM3 373 TH/MM3 Mean Platelet Volume 7.9 FL 8.7 FL Neutrophils (%) (Auto) 91.7 % 89.8 % Lymphocytes (%) (Auto) 2.6 % 3.8 % Monocytes (%) (Auto) 5.5 % 5.5 % Eosinophils (%) (Auto) 0.1 % 0.8 % Basophils (%) (Auto) 0.1 % 0.1 % Neutrophils # (Auto) 15.1 TH/MM3 13.5 TH/MM3 Lymphocytes # (Auto) 0.4 TH/MM3 0.6 TH/MM3 Monocytes # (Auto) 0.9 TH/MM3 0.8 TH/MM3 Eosinophils # (Auto) 0.0 TH/MM3 0.1 TH/MM3 Basophils # (Auto) 0.0 TH/MM3 0.0 TH/MM3 CBC Comment AUTO DIFF AUTO DIFF Differential Comment AUTO DIFF AUTO DIFF CONFIRMED CONFIRMED Platelet Estimate NORMAL Platelet Morphology Comment NORMAL Red Cell Morphology Comment Laboratory Tests Test 07/12/16 07/13/16 07/14/16 17:40 04:30 04:05 Potassium Level 4.2 MEQ/L 3.8 MEQ/L 4.1 MEQ/L Sodium Level 149 MEQ/L 148 MEQ/L Chloride Level 113 MEQ/L 111 MEQ/L Carbon Dioxide Level 27.1 MEQ/L 28.0 MEQ/L Anion Gap 9 MEQ/L 9 MEQ/L Blood Urea Nitrogen 82 MG/DL 98 MG/DL Creatinine 2.79 MG/DL 3.17 MG/DL Estimat Glomerular Filtration 24 ML/MIN 20 ML/MIN Rate Random Glucose 130 MG/DL 138 MG/DL Calcium Level 7.4 MG/DL 7.7 MG/DL Protein Corrected Calcium 7.9 MG/DL Phosphorus Level 3.0 MG/DL Total Protein 6.2 GM/DL 6.2 GM/DL Magnesium Level 3.4 MG/DL Total Bilirubin 0.3 MG/DL Aspartate Amino Transf 79 U/L (AST/SGOT) Alanine Aminotransferase 82 U/L (ALT/SGPT) Alkaline Phosphatase 88 U/L Albumin 1.7 GM/DL Imaging Last Impressions Chest X-Ray 07/09/16 0000 Signed Impressions: Service Date/Time: Saturday, July 09, 2016 10:44 - CONCLUSION: Left subclavian central line tip is in the superior aspect of the SVC. No pneumothorax is visualized. Otherwise, stable exam. Patel Palmer MD Abdomen/Pelvis CT 07/07/16 1110 Signed Impressions: Service Date/Time: Thursday, July 07, 2016 11:31 - CONCLUSION: 1. Renal stones and stents in good position as described above. Yosvany Fuentes MD FACR Chest CT 07/07/16 0000 Signed Impressions: Service Date/Time: Thursday, July 07, 2016 16:09 - CONCLUSION: 1. Consolidative changes in the left upper lobe. There is suspicious adenopathy in the mediastinum. This may be more than an inflammatory process. 2. Bronchoscopy may be the easiest way to make a diagnosis of a neoplastic process. Yosvany Fuentes MD FACR Physical Exam GENERAL: Obese. Well nourished. Well built. Eyes edema, subconjunctival edema much reduced today. SKIN: No rashes. Cool and dry. No areas of peripheral skin necrosis. HEAD: grossly NAD. ENT: Intubated. CARDIOVASCULAR: HS audible. No murmur appreciated. RESPIRATORY: Breath sounds diminished bilaterally posteriorly. GASTROINTESTINAL: soft, NT MUSCULOSKELETAL: No pedal edema. Joints ok. NEUROLOGICAL: Sedated. Psych could not be assessed IV line sites with no evidence of infection. Assessment & Plan Remarks Severe sepsis present on admission(criteria explained in history of present illness) Pneumonia present on admission (community acquired, atypical, possible component of healthcare associated pneumonia) Likely Legionella Pneumonia with ARDS at this point. At risk for aspiration during prone periods. Bilateral ureteral stents. Acute renal failure present on admission likely sepsis, AIN, ATN. Acute metabolic encephalopathy: likely secondary to sepsis Recommendations: Sputum cultures negative. Continue Azithromycin IV (will likely need 3 weeks or more) Continue Levaquin IV (will likely need 3 weeks or more) Continue Cefepime IV Continue flagyl oral (aspiration risk) Follow cultures Follow clinically d/w RN d/w : If mucus plugging continues and new signs of infection consider Bronchoscopy. covering for me this weekend. Brenda Walsh MD Jul 14, 2016 14:59
[2016-07-14] MEDS: CEFEPIME INJ 2,000 MG in SODIUM CHLORIDE 0.9% INJ 100 ML IV SCH (17:27)
[2016-07-14] MEDS: REMOVE OLD NICODERM (NICOTINE) PATCH TD SCH (21:00)
[2016-07-14] MEDS: ATORVASTATIN 80 MG TAB PO SCH (22:52)
[2016-07-15] VITALS (19 sets, daily range): BP systolic 89–174; BP diastolic 50–84; PULSE 68–95; RESP 18; TEMP 97.6–99.2; O2SAT 90–96
[2016-07-15] MEDS: PROPOFOL 1000 MG/100 ML INJ 100 ML IV SCH ×6 (01:03→23:49)
[2016-07-15] MEDS: hydrALAZINE HCL 50 MG TAB PO SCH ×3 (01:03→17:35)
[2016-07-15] MEDS: INSULIN NovoLIN REGULAR SUPPLEMENTAL SCALE SQ SCH ×4 (01:03→17:35)
[2016-07-15] MEDS: RESP: ALBUTEROL 2.5 MG/IPRATROPIUM 0.5 MG NEB (SCH) NEB ×6 (03:18→23:26)
[2016-07-15] MEDS: FREE WATER OG-TUBE SCH ×5 (04:00→20:00)
[2016-07-15] MEDS: methylPREDNISolone SOD SUCC 40 MG/1 ML VIAL IV PUSH SCH ×2 (04:50→17:14)
[2016-07-15] MEDS: metroNIDAZOLE 500 MG TAB PO SCH ×3 (04:51→22:09)
[2016-07-15] MEDS: METOPROLOL TARTRATE 25 MG TAB PO SCH ×3 (04:51→22:09)
[2016-07-15] MEDS: METOCLOPRAMIDE HCL 10 MG/2 ML VIAL IV SCH ×3 (04:51→20:18)
--- NOTE | 2016-07-15 07:21 | HHI.CCPN ---
Subjective Remarks/Hospital Course The patient is a 55-year-old male with a past medical history of hypertension, renal calculi, status post bilateral ureteral stent placement in April, . He presented to [facility] ED with a three-day history of bilateral flank pain associated with fever and severe body aches. Just prior to admission, the patient had gross hematuria per his daughter and had decreased p.o. intake. The patient denied any shortness of breath or chest pain. Due to his abdominal pain, a CT scan of the abdomen and pelvis was obtained which showed renal stones and stent in place. An initial chest x-ray in the ED showed extensive airspace disease throughout the left upper lobe characteristic of pneumonia. He subsequently underwent a CT scan of the chest which showed consolidative changes in the left upper lobe along with suspicious adenopathy in the mediastinum. His initial creatinine level was 1.6 and the patient was placed on broad-spectrum antibiotics in addition to IV fluids. His laboratory data from today showed improvement of his renal function with a creatinine of 1.30 and lactic acid level measured at 1.0. [facility] was called for respiratory distress and the patient was a nonrebreather mask and transferred to [facility] [place]. When seen in the ICU he was tachypneic, tachycardic and had a temperature of 103. The patient was subsequently intubated by myself and placed on full mechanical ventilation. A chest x-ray post intubation showed severe diffuse left lung airspace consolidation and a new mild consolation versus atelectasis in the right midlung zone. His nasal washing on arrival negative for influenza, and blood cultures and urine culture from yesterday showed no growth to date. The patient had a temperature of 102.8 earlier today. 07/09 Patient is sedated with versed, Fentanyl and intubated. Now on PRVC with RR 20, TV 550, IT:1, PEEP:15 and FIO2 100%. Afebrile. His Legionella urinary AG is positive. Renal function worse today with Cr 1.86 from 1.30 07/10: Patient remains very critical. Placed on Prone therapy yesterday for worsening respiratory status and severe hypoxia. Worsening renal function- creatinine increased from 1.8-2.8 today, urology following, will consult nephrology. Remains on 4 mics per minute of Levophed, urine output adequate 1.9 L in 24 hours. Currently on broad-spectrum antibiotics per ID on Zosyn and azithromycin Zyvox. I have added Levaquin for double coverage for Legionella 07/11: Remains intubated sedated. FiO2 at 50%. Chest x-ray shows bilaterally improving aeration. We'll reduce PEEP to 12. Urine output is adequate but creatinine has increased to 3. 07/12: Patient remains on prone therapy, remains critically ill but slowly his improving oxygenation. Currently on 10 of PEEP and 50% oxygen. Urine output is 1.7 L in 24 hours, increase in BUN to 79 creatinine is 3.2. We'll start weaning and starting today 07/13: Remains critically ill, but showing continued signs of improvement. UO >4L , Cr improved from 3.2 to 2.8. On weaning doses of Flolan. Maintaining oxygen saturation above 90% on 45% FiO2. WBC count is trending down. Will discontinue prone therapy today 07/14 Patient is off Rotoprone bed on ACV with RR 18, TV 600, PEEP: 10 and FIO2 50%. Sedated with Diprivan/Fentanyl and Versed. Afebrile.Renal function worse today with Cr: 3.17 today from 2.79 with UO 3600ml in 24 hrs. 07/15 Patient remains sedated and intubated. Afebrile. Now on ACV with RR 18, TV 600< PEEP:10 and FIO2 increased 60%. Objective Vital Signs Date Time Temp Pulse Resp B/P Pulse Ox O2 Delivery O2 Flow Rate FiO2 07/15/16 06:00 76 07/15/16 04:20 94 60 07/15/16 04:00 125/66 144/72 07/15/16 04:00 97.6 18 Intake and Output 07/14/16 07/14/16 07/15/16 08:00 16:00 00:00 Intake Total 1064 ml 1900 ml 1096 ml Output Total 1000 ml 2100 ml 1400 ml Balance 64 ml -200 ml -304 ml Result Diagram: 07/14/16 0405 07/14/16 0405 Imaging Last Impressions Chest X-Ray 07/14/16 0600 Signed Impressions: Service Date/Time: Thursday, July 14, 2016 03:20 - CONCLUSION: Worsening left lower lobe airspace disease otherwise stable. Andi Parra MD Soft Tissue Ultrasound 07/12/16 0000 Signed Impressions: Service Date/Time: Tuesday, July 12, 2016 19:25 - CONCLUSION: Well- defined heterogeneous mass which is nonspecific but likely represents a sebaceous cyst. Alexandro DeL a O MD Abdomen X-Ray 07/12/16 0000 Signed Impressions: Service Date/Time: Tuesday, July 12, 2016 16:59 - CONCLUSION: Nonspecific, benign abdomen appearance. Patel Torres MD Abdomen/Pelvis CT 07/07/16 1110 Signed Impressions: Service Date/Time: Thursday, July 07, 2016 11:31 - CONCLUSION: 1. Renal stones and stents in good position as described above. Yosvany Fuentes MD FACR Chest CT 07/07/16 0000 Signed Impressions: Service Date/Time: Thursday, July 07, 2016 16:09 - CONCLUSION: 1. Consolidative changes in the left upper lobe. There is suspicious adenopathy in the mediastinum. This may be more than an inflammatory process. 2. Bronchoscopy may be the easiest way to make a diagnosis of a neoplastic process. Yosvany Fuentes MD FACR Objective Remarks GENERAL: Patient is 55 yo critically ill intubated and sedated. SKIN: Warm and dry. HEAD: Normocephalic. EYES: No injection or drainage. NECK: Supple, trachea midline. Orally intubated CARDIOVASCULAR: Regular rate and rhythm without murmurs, gallops, or rubs. RESPIRATORY: Breath sounds equal bilaterally with few coarse BS GASTROINTESTINAL: Abdomen soft, non-tender, nondistended. MUSCULOSKELETAL: No cyanosis, or edema. NEURO: Sedated,intubated A/P Assessment and Plan PROBLEM LIST Acute hypoxemic respiratory failure s/p Septic shock ARDS Multilobar Legionella pneumonia Acute kidney failure Acute metabolic encephalopathy Urinary tract infection History of renal calculi with bilateral ureteral stent placement in April History of hypertension Leukocytosis Mild hyponatremia Plan Neuro: -On Versed, Fentanyl and Diprivan infusion for sedation. off Nimbex- discontinued 07/13 -Continue with thiamine 100 mg daily. Continue close neuro monitoring -Daily sedation vacation when appropiate Pulm: -off Prone therapy for severe ARDS initiated 07/09/16. Discontinued 07/13/16 -Continue with vent support keep sat >92%. Decrease FIO2 as edmond. -Bronchodilators, Solumederol 40mg q12, pulm is following-Dr. Jaimes -Patient is at high risk for bronch due to increase oxygen requirements -ICU vent bundle, check CXR today CV: -Monitor HR and BP keep MAP>65mmHg. Lactic acid level measured at 1.4 -2D echo 07/10/16-EF 60%, moderate LVH -On Hydralazine 50mg Q8, Norvasc 10mg daily, Metoprolol 50mg Q8 : -Nephrology Dr. Handley following for worsening renal function. -Off Bumex. -Urology service consulted for hx flank pain and renal calculi with ureteral stent placement-CT abdomen pelvis showed stents in good position -Acute kidney failure could be related to severe sepsis and hypotension -Monitor renal function, Is and Os and electrolyte replacement as needed. -Follow up on CMP today, UO 3600ml in 24 hrs -On Free water 300ml Q4, monitor Na level. GI: -On tube feeds- Glucerna 1.5@45ml/hr, Protonix 40mg IV daily for GI prophylaxis -Bowel regimen with Colace and senna. -Continue Reglan ID: -Continue with ABX per ID Continue Azithromycin IV, Levaquin IV, Cefepime 2 gm IV q24hrs and Flagyl oral -07/08 Legionella urinary antigen positive. -07/07 BC : GPC 06/21 bottles-coag neg staph, probable contaminant Endo: -SSI with Accu-Chek q.6 hours for glycemic control Heme: -Monitor CBC. Proph: -GI prophylaxis with Protonix 40 mg daily and DVT prophylaxis with SCDs and Lovenox subcu. Lines: -Peripheral IV, L subclavian central line 07/09/16 Follow up on labs Remains critically ill with severe ARDS from Legionella pneumonia. In addition patient has acute hypoxemic respiratory failure, severe sepsis and acute renal failure. His prognosis is guarded at this time CCT 40 mins Nata Choi MD Jul 15, 2016 07:21
[2016-07-15 07:39] LABS: BASOPHIL % 0.1 % (0.0-2.0); EOSINOPHIL % 0.1 % (0.0-4.0); HEMATOCRIT 30.6 % (39.0-51.0); LYMPHOCYTE # 0.7 TH/MM3 (1.0-4.8); MEAN CELL VOLUME 96.2 FL (80.0-100.0); MEAN CORPUSCULAR HEMOGLOBIN 32.5 PG (27.0-34.0); MEAN CORPUSCULAR HGB CONC 33.7 % (32.0-36.0); MONO % 6.3 % (0.0-8.0); NEUT % 89.5 % (16.0-70.0); PLATELET COUNT 346 TH/MM3 (150-450); RED BLOOD COUNT 3.18 MIL/MM3 (4.50-5.90); RED CELL DISTRIBUTION WIDTH 14.5 % (11.6-17.2); WHITE BLOOD COUNT 16.8 TH/MM3 (4.0-11.0)
[2016-07-15 07:42] LABS: HEMO FLAGS AUTO DIFF
--- NOTE | 2016-07-15 07:42 | RADRPT ---
EXAM DATE/TIME: 07/15/2016 07:05 [place] COMPARISON: CHEST SINGLE AP, July 14, 2016, 3:20. INDICATIONS : Shortness of breath MEDICAL HISTORY : Hypertension. Chronic obstructive pulmonary disease. Gastroesophageal reflux disease SURGICAL HISTORY : None. ENCOUNTER: Subsequent ACUITY: 1 week PAIN SCORE: Non-responsive. LOCATION: Bilateral chest FINDINGS: The support devices remain in place. There is no pneumothorax. Compared to the prior study there is i mproved aeration of the left upper lung. There is a mild infiltrate in the right upper lung. The hear t size is stable. There is blunting of the left costophrenic angle suggestive of small effusion. The bony structures are stable. CONCLUSION: 1. Improved aeration of the left upper lung compared to the prior examination. 2. Mild infiltrate right upper lung. Elgin Levin MD on July 15, 2016 at 7:40 Board Certified Radiologist. This report was verified electronically.
[2016-07-15 08:03] LABS: ALKALINE PHOSPHATASE 99 U/L (45-117); ALT (GPT) 87 U/L (12-78); ANION GAP 8 MEQ/L (5-15); AST (GOT) 87 U/L (15-37); BICARBONATE 27.2 MEQ/L (21.0-32.0); BLOOD UREA NITROGEN 98 MG/DL (7-18); CHLORIDE 111 MEQ/L (98-107); GLOMERULAR FILTRATION RATE 22 ML/MIN (>89); POTASSIUM 4.7 MEQ/L (3.5-5.1); SODIUM (NA) 146 MEQ/L (136-145); TOTAL BILIRUBIN ADULT 0.3 MG/DL (0.2-1.0)
[2016-07-15] MEDS: PANTOPRAZOLE SODIUM 40 MG VIAL IV PUSH SCH (09:00)
[2016-07-15] MEDS: ENOXAPARIN SODIUM 30 MG/0.3 ML SYRINGE SQ SCH (09:21)
[2016-07-15] MEDS: SODIUM CHLORIDE 0.9% FLUSH 5 ML FLUSH FLUSH SCH ×2 (09:21→20:18)
[2016-07-15] MEDS: NICOTINE 21 MG/24 HR PATCH TD SCH (09:22)
[2016-07-15] MEDS: AZITHROMYCIN INJ 500 MG in SODIUM CHLOR 0.9% 250 ML INJ 250 ML IV SCH (09:22)
[2016-07-15] MEDS: THIAMINE HCL 100 MG TAB PO SCH (09:22)
[2016-07-15] MEDS: MIDAZOLAM 100 MG/NS 100 ML DRIP Premix IV SCH (09:23)
[2016-07-15] MEDS: DOCUSATE SODIUM 100 MG/10 ML UDC OG SCH ×2 (09:23→20:18)
[2016-07-15] MEDS: SENNOSIDES SYRUP 8.8 MG/5 ML CUP OG SCH ×2 (09:23→20:18)
[2016-07-15] MEDS: fentaNYL DRIP 250 ML IV SCH ×2 (09:23→18:01)
[2016-07-15 09:38] LABS: SCAN/DIFF AUTO DIFF CONFIRMED
[2016-07-15] MEDS ORDERED: CHLOROTHIAZIDE SOD 500 MG VIAL IV ONE (10:00)
[2016-07-15] MEDS: ARTIFICIAL TEARS OPTH OINT 3.5 APPLIC/3.5 GM TUBO EACH EYE SCH ×2 (11:35→20:19)
--- NOTE | 2016-07-15 12:35 | HHI.FPPN ---
Subjective Remarks No acute events overnight. BP was low overnight but improved this morning. Vital signs otherwise unremarkable. Remains afebrile and sedated. (Xiomara Arriaga MD R2) Objective Vitals Vital Signs Date Time Temp Pulse Resp B/P Pulse Ox O2 Delivery O2 Flow Rate FiO2 07/15/16 12:00 78 07/15/16 11:12 93 60 07/15/16 10:00 73 07/15/16 08:00 68 07/15/16 07:21 90 60 07/15/16 06:00 76 07/15/16 04:20 94 60 07/15/16 04:00 75 07/15/16 04:00 76 125/66 144/72 07/15/16 04:00 60 07/15/16 04:00 97.6 76 18 125/66 94 144/72 07/15/16 02:00 78 07/15/16 01:03 96 60 07/15/16 00:00 84 89/50 105/58 07/15/16 00:00 84 07/15/16 00:00 60 07/15/16 00:00 99.2 84 18 89/50 94 105/58 07/14/16 22:00 91 07/14/16 20:00 91 07/14/16 20:00 60 07/14/16 20:00 99.0 91 18 100/56 94 126/68 07/14/16 20:00 91 100/56 126/68 07/14/16 19:47 95 60 07/14/16 18:00 93 07/14/16 17:00 93 07/14/16 16:00 104 07/14/16 16:00 98.7 114 18 119/69 90 105/18 07/14/16 16:00 60 07/14/16 16:00 114 119/69 153/72 07/14/16 15:53 92 60 07/14/16 15:00 101 07/14/16 14:00 101 07/14/16 13:00 101 07/14/16 12:50 93 60 I/O 07/14/16 07/14/16 07/14/16 07/15/16 07/15/16 07/15/16 07:00 15:00 23:00 07:00 15:00 23:00 Intake Total 1064 ml 1900 ml 1096 ml 1305 ml Output Total 1000 ml 2100 ml 1400 ml 1000 ml Balance 64 ml -200 ml -304 ml 305 ml IV Total 368 ml 1000 ml 541 ml 433 ml Tube Feeding 236 ml 300 ml 195 ml 212 ml Other 460 ml 600 ml 360 ml 660 ml Output Urine Total 800 ml 2000 ml 900 ml 700 ml Stool Total 200 ml 100 ml 500 ml 300 ml (Xiomara Rodas MD R2) Result Diagram: 07/15/16 0725 07/15/16 0725 Objective Remarks GEN: Well-developed, well-nourished patient. Sedated and intubated on [facility] vent , supine position. CV: Regular rate and rhythm without obvious murmurs or rubs. LUNGS: Coarse breath sounds bilaterally but with good air movement. No wheezes or crackles. ABD: Distended but soft. : good urine output in [place] NEURO/PSYCH: Sedated (Xiomara Rodas MD R2) A/P Assessment and Plan 55 year old male with h/o HTN, renal calculi, s/p bilateral ureteral stent placements presented due to bilateral flank pain more significant on the left x 3 days, admitted for left-sided pneumonia, sepsis, possible UTI. Critical care was consulted on 07/08 due to acute worsening of symptoms associated with respiratory distress. Neuro: Sedated due to intubation, acute metabolic encephalopathy -On Versed, Fentanyl, and propofol for sedation. -Nimbex discontinued 07/13 -Daily sedation vacation Pulm: Left legionella pneumonia, severe ARDS, respiratory distress, COPD, suspicious adenopathy in the mediastinum -Discontinued prone position 07/09/16-07/13/16 Pulmonary consulted: appreciate recommendations * Will require bronchoscopic examination -Currently on PEEP of 10, FiO2 of 60%, RR 18, TV 600 Imaging: * * CXR 07/15: Improved aeration of the left upper lobe compared to prior examination. Mild infiltrate right upper lobe. * CXR 07/09: Persistent severe diffuse left lung air space consolidation with likely left pleural effusion. Stable subtle airspace consolidation/opacity the in the right midlung * Chest CT: Consolidative changes in the left upper lobe. There is suspicious adenopathy in the mediastinum. This may be more than an inflammatory process Medications: * Albuterol and Duonebs * Solu-Medrol, 40mg Q12 Cardiac: HLD, HTN -ACS negative -Echo 07/10: Mild to moderate LVH, normal systolic function, ejection fraction estimated to be 60%. No regional wall motion abnormalities. Mild mitral valve regurgitation. Medications: * Amlodipine 10 mg * Hydralazine 50mg PO q8 and PRN * Metoprolol 50 mg q8 * Atorvastatin 80 mg * Labetalol 20 mg PRN : S/P bilateral ureteral stents, JASON -Creatinine down trending again. Good UOP Urology consulted: Appreciate recommendations * Once clinical picture improves, may remove stents versus attempted attempted ureteroscopy and laser lithotripsy * Will follow Nephrology consulted: appreciate recommendations * JASON likely due to decreased renal perfusion * avoid IVF for now, continue free water * bump in Cr may have been due to aggressive diuresis * consider reducing dose of Solumedrol GI: -On tube feeds- Glucerna -Metoclopramide schedule q8 -Protonix 40mg IV daily for GI prophylaxis ID: Legionella pneumonia, leukocytosis, septic shock, -Leukocytosis improving but now stagnant, still receiving steroids -Afebrile since 07/09 -Legionella antigen positive in urine -1 of 2 blood culture on 07/07 positive for staph S/P coagulase-negative, likely due to contamination -Repeat blood cultures, sputum cultures, urine cx NGTD -urine eosinophils none seen ID consulted: Appreciate recommendations * Cefepime 07/11 * Flagyl 07/11 * Azithromycin 07/08- * Levaquin 07/10- Discontinued ABX: * Zyvox 07/09-07/11 * Zosyn 07/07-07/11 * Vancomycin 07/07-07/09, discontinued due to concern for drug fever and allergic interstitial nephritis Endo: SSI with Accu-Chek DVT Prophylaxis - Lovenox Discharge Planning Timetable unknown. Pending respiratory improvement. dw Dr. Antonio (Xiomara Rodas MD R2) Problem List: (1) Legionella pneumonia Status: Acute (2) Acute respiratory failure with hypoxia Status: Acute (3) Acute renal failure Status: Acute (4) Sepsis Status: Acute (5) COPD (chronic obstructive pulmonary disease) Status: Acute (Xiomara Rodas MD R2) Xiomara Rodas MD R2 Jul 15, 2016 12:35 Elgin Antonio MD Jul 15, 2016 14:25
--- NOTE | 2016-07-15 13:03 | HHI.NPPN ---
Subjective General Problems: Anemia, Edema Renal Failure: Acute Interval History remains on the ventilator. FiO2 60 %. Excellent urine output. Review of Systems General General Remarks unable to obtain due to intubation/sedation Objective Data Data 07/14/16 07/15/16 19:00 07:00 Intake Total 1900 ml 2401 ml Output Total 2100 ml 2400 ml Balance -200 ml 1 ml IV Total 1000 ml 974 ml Tube Feeding 300 ml 407 ml Other 600 ml 1020 ml Output Urine Total 2000 ml 1600 ml Stool Total 100 ml 800 ml Vital Signs Date Time Temp Pulse Resp B/P Pulse Ox O2 Delivery O2 Flow Rate FiO2 07/15/16 12:00 78 07/15/16 11:12 93 60 07/15/16 10:00 73 07/15/16 08:00 68 07/15/16 07:21 90 60 07/15/16 06:00 76 07/15/16 04:20 94 60 07/15/16 04:00 75 07/15/16 04:00 76 125/66 144/72 07/15/16 04:00 60 07/15/16 04:00 97.6 76 18 125/66 94 144/72 07/15/16 02:00 78 07/15/16 01:03 96 60 07/15/16 00:00 84 89/50 105/58 07/15/16 00:00 84 07/15/16 00:00 60 07/15/16 00:00 99.2 84 18 89/50 94 105/58 07/14/16 22:00 91 07/14/16 20:00 91 07/14/16 20:00 60 07/14/16 20:00 99.0 91 18 100/56 94 126/68 07/14/16 20:00 91 100/56 126/68 07/14/16 19:47 95 60 07/14/16 18:00 93 07/14/16 17:00 93 07/14/16 16:00 104 07/14/16 16:00 98.7 114 18 119/69 90 105/18 07/14/16 16:00 60 07/14/16 16:00 114 119/69 153/72 07/14/16 15:53 92 60 07/14/16 15:00 101 07/14/16 14:00 101 -: 07/15/16 0725 07/15/16 0725 Tubes & Lines: Khan Tubes & Lines Comment NG tube, A line , rectal tube Drip Comment fentanyl, versed, propofol Physical Exam General Appearance: Well Developed Eyes Eye Exam: Pupils Equal Neck Neck Exam: Neck Supple Pulmonary Resp Exam: Crackles, Rhonchi, Sputum, Decreased Bases Cardiology CV Exam: Regular, Normal Sinus Rhythm Gastrointestinal/Abdomen GI Exam: Soft, Non-Tender, Bowel Sounds Present Musculoskeletal MS Exam: Joints Intact, Normal Tone Integumentary Skin Exam: Warm, Dry Extremeties Extremities Exam: Pedal Pulses Palpable, Moderate Edema, Pitting Edema, Dependent Edema Neurologic Neuro Exam: Unresponsive, Sedated VTE Prophylaxis Device: SCDs Assessment/Plan Discussed Condition With: Daughter Assessment Summary: JASON/Acute Renal Failure, Fluid/Volume Overload Electrolyte Assessment: Hypernatremia Problem List: (1) Acute renal failure Plan: His creatinine was 1.13 on 07/08 he became septic around that time with BP 70/30s, started on pressors JASON due to decreased renal perfusion (sepsis),ATN. AIN is another possibility. Non oliguric, renal function is slightly better. Continue Diuril. Minimize IVF. Double concentrate all fluids. Discussed with Dr. Pablo. (2) Sepsis Plan: due to legionella, ARDS WBC trending down, he is afebrile, recent blood cultures are negative he is on Zithromax, Cefepime, Levaquin, and Flagyl with nebulizers. ID following. (3) Hypernatremia Plan: continue Diuril. free water through tube feeding increased monitor serum sodium (4) Left flank pain Plan: with non obstructing stone s/p previous bilateral ureteral stent placement, may need lithotripsy and stent removal in future urology has evaluated Harvey Handley MD Jul 15, 2016 13:02
--- NOTE | 2016-07-15 15:01 | HHI.IDPN ---
Subjective Subjective Remarks ID COVERAGE Notes reviewed Afebrile BP OK Intubated, sedated on the vent, FiO2 at 0.9 ID following for sepsis, pneumonia, legionella antigen positive, possible legionellosis with secondary bacterial infection. Mr. Ambrocio is a 55-year-old male with past medical history significant for renal calculi status post bilateral ureteral stent placements as well as hypertension who presented to the emergency department to bilateral flank pain for the past 3 days. He also had shortness of breath and chest discomfort on admission. UA with some pyuria. UC negative. CT A/P stent ok, no hydro Antibiotics Azithro IV Levaquin IV Cefepime IV Flagyl oral Lines Line sites with no e/o infection Past Medical History reviewed. 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 Vital Signs Date Time Temp Pulse Resp B/P Pulse Ox O2 Delivery O2 Flow Rate FiO2 07/15/16 12:00 68 158/84 174/79 07/15/16 12:00 78 07/15/16 12:00 60 07/15/16 12:00 97.6 78 18 158/84 94 174/79 07/15/16 11:12 93 60 07/15/16 10:00 73 07/15/16 08:00 68 147/77 166/80 07/15/16 08:00 68 07/15/16 08:00 60 07/15/16 08:00 97.6 68 18 147/77 90 166/80 07/15/16 07:21 90 60 07/15/16 06:00 76 07/15/16 04:20 94 60 07/15/16 04:00 75 07/15/16 04:00 76 125/66 144/72 07/15/16 04:00 60 07/15/16 04:00 97.6 76 18 125/66 94 144/72 07/15/16 02:00 78 07/15/16 01:03 96 60 07/15/16 00:00 84 89/50 105/58 07/15/16 00:00 84 07/15/16 00:00 60 07/15/16 00:00 99.2 84 18 89/50 94 105/58 07/14/16 22:00 91 07/14/16 20:00 91 07/14/16 20:00 60 07/14/16 20:00 99.0 91 18 100/56 94 126/68 07/14/16 20:00 91 100/56 126/68 07/14/16 19:47 95 60 07/14/16 18:00 93 07/14/16 17:00 93 07/14/16 16:00 104 07/14/16 16:00 98.7 114 18 119/69 90 105/18 07/14/16 16:00 60 07/14/16 16:00 114 119/69 153/72 07/14/16 15:53 92 60 07/14/16 15:00 101 07/14/16 07/14/16 07/15/16 15:00 23:00 07:00 Intake Total 1900 ml 1096 ml 1305 ml Output Total 2100 ml 1400 ml 1000 ml Balance -200 ml -304 ml 305 ml IV Total 1000 ml 541 ml 433 ml Tube Feeding 300 ml 195 ml 212 ml Other 600 ml 360 ml 660 ml Output Urine Total 2000 ml 900 ml 700 ml Stool Total 100 ml 500 ml 300 ml . Laboratory Tests Test 07/14/16 07/15/16 04:05 07:25 White Blood Count 15.0 TH/MM3 16.8 TH/MM3 Red Blood Count 3.27 MIL/MM3 3.18 MIL/MM3 Hemoglobin 10.9 GM/DL 10.3 GM/DL Hematocrit 31.3 % 30.6 % Mean Corpuscular Volume 95.9 FL 96.2 FL Mean Corpuscular Hemoglobin 33.2 PG 32.5 PG Mean Corpuscular Hemoglobin 34.7 % 33.7 % Concent Red Cell Distribution Width 14.5 % 14.5 % Platelet Count 373 TH/MM3 346 TH/MM3 Mean Platelet Volume 8.7 FL 8.4 FL Neutrophils (%) (Auto) 89.8 % 89.5 % Lymphocytes (%) (Auto) 3.8 % 4.0 % Monocytes (%) (Auto) 5.5 % 6.3 % Eosinophils (%) (Auto) 0.8 % 0.1 % Basophils (%) (Auto) 0.1 % 0.1 % Neutrophils # (Auto) 13.5 TH/MM3 15.0 TH/MM3 Lymphocytes # (Auto) 0.6 TH/MM3 0.7 TH/MM3 Monocytes # (Auto) 0.8 TH/MM3 1.1 TH/MM3 Eosinophils # (Auto) 0.1 TH/MM3 0.0 TH/MM3 Basophils # (Auto) 0.0 TH/MM3 0.0 TH/MM3 CBC Comment AUTO DIFF AUTO DIFF Differential Comment AUTO DIFF AUTO DIFF CONFIRMED CONFIRMED Platelet Estimate NORMAL Platelet Morphology Comment NORMAL Red Cell Morphology Comment Laboratory Tests Test 07/14/16 07/15/16 04:05 07:25 Sodium Level 148 MEQ/L 146 MEQ/L Potassium Level 4.1 MEQ/L 4.7 MEQ/L Chloride Level 111 MEQ/L 111 MEQ/L Carbon Dioxide Level 28.0 MEQ/L 27.2 MEQ/L Anion Gap 9 MEQ/L 8 MEQ/L Blood Urea Nitrogen 98 MG/DL 98 MG/DL Creatinine 3.17 MG/DL 2.99 MG/DL Estimat Glomerular Filtration 20 ML/MIN 22 ML/MIN Rate Random Glucose 138 MG/DL 159 MG/DL Calcium Level 7.7 MG/DL 8.1 MG/DL Magnesium Level 3.4 MG/DL Total Bilirubin 0.3 MG/DL 0.3 MG/DL Aspartate Amino Transf 79 U/L 87 U/L (AST/SGOT) Alanine Aminotransferase 82 U/L 87 U/L (ALT/SGPT) Alkaline Phosphatase 88 U/L 99 U/L Total Protein 6.2 GM/DL 6.3 GM/DL Albumin 1.7 GM/DL 1.8 GM/DL Imaging Chest X-Ray 07/15/16 0000 Signed Impressions: Service Date/Time: Friday, July 15, 2016 07:05 - CONCLUSION: 1. Improved aeration of the left upper lung compared to the prior examination. 2. Mild infiltrate right upper lung. Elgin Levin MD Soft Tissue Ultrasound 07/12/16 0000 Signed Impressions: Service Date/Time: Tuesday, July 12, 2016 19:25 - CONCLUSION: Well- defined heterogeneous mass which is nonspecific but likely represents a sebaceous cyst. Alexandro De La O MD Abdomen X-Ray 07/12/16 0000 Signed Impressions: Service Date/Time: Tuesday, July 12, 2016 16:59 - CONCLUSION: Nonspecific, benign abdomen appearance. Patel Torres MD Abdomen/Pelvis CT 07/07/16 1110 Signed Impressions: Service Date/Time: Thursday, July 07, 2016 11:31 - CONCLUSION: 1. Renal stones and stents in good position as described above. Yosvany Fuentes MD FACR Chest CT 07/07/16 0000 Signed Impressions: Service Date/Time: Thursday, July 07, 2016 16:09 - CONCLUSION: 1. Consolidative changes in the left upper lobe. There is suspicious adenopathy in the mediastinum. This may be more than an inflammatory process. 2. Bronchoscopy may be the easiest way to make a diagnosis of a neoplastic process. Yosvany Fuentes MD FACR Last Impressions Chest X-Ray 07/09/16 0000 Signed Impressions: Service Date/Time: Saturday, July 09, 2016 10:44 - CONCLUSION: Left subclavian central line tip is in the superior aspect of the SVC. No pneumothorax is visualized. Otherwise, stable exam. Patel Palmer MD Abdomen/Pelvis CT 07/07/16 1110 Signed Impressions: Service Date/Time: Thursday, July 07, 2016 11:31 - CONCLUSION: 1. Renal stones and stents in good position as described above. Yosvany Fuentes MD FACR Chest CT 07/07/16 0000 Signed Impressions: Service Date/Time: Thursday, July 07, 2016 16:09 - CONCLUSION: 1. Consolidative changes in the left upper lobe. There is suspicious adenopathy in the mediastinum. This may be more than an inflammatory process. 2. Bronchoscopy may be the easiest way to make a diagnosis of a neoplastic process. Yosvany Fuentes MD FACR Physical Exam GENERAL: Obese. Well nourished. On the vent., NAD SKIN: No rashes. Cool and dry. HEENT: [place] conjunctiva, no icterus, orally intubated. CARDIOVASCULAR: HS audible. No murmur appreciated. RESPIRATORY: Breath sounds diminished bilaterally posteriorly. GASTROINTESTINAL: soft, NT MUSCULOSKELETAL: Edema hands and feet NEUROLOGICAL: Sedated. Psych could not be assessed IV line sites with no evidence of infection. Assessment & Plan Remarks Severe sepsis present on admission(criteria explained in history of present illness) Pneumonia present on admission (community acquired, atypical, possible component of healthcare associated pneumonia) Likely Legionella Pneumonia with ARDS Bilateral ureteral stents. Acute renal failure present on admission likely sepsis, AIN, ATN. Acute metabolic encephalopathy: likely secondary to sepsis Recommendations: Continue Azithromycin IV (will likely need 3 weeks or more) Continue Levaquin IV (will likely need 3 weeks or more) Continue Cefepime IV Continue Flagyl oral (aspiration risk) Follow cultures Monitor progress Kinga Braden MD Jul 15, 2016 15:01
[2016-07-15] MEDS: CEFEPIME INJ 2,000 MG in SODIUM CHLORIDE 0.9% INJ 100 ML IV SCH (15:44)
[2016-07-15] MEDS: ATORVASTATIN 80 MG TAB PO SCH (20:18)
[2016-07-15] MEDS: REMOVE OLD NICODERM (NICOTINE) PATCH TD SCH (20:20)
[2016-07-16] VITALS (18 sets, daily range): BP systolic 114–176; BP diastolic 60–85; PULSE 79–107; RESP 18; TEMP 98.1–99.1; O2SAT 91–97
[2016-07-16] MEDS: hydrALAZINE HCL 50 MG TAB PO SCH ×3 (02:35→17:49)
[2016-07-16] MEDS: PROPOFOL 1000 MG/100 ML INJ 100 ML IV SCH ×7 (02:35→23:13)
[2016-07-16] MEDS: RESP: ALBUTEROL 2.5 MG/IPRATROPIUM 0.5 MG NEB (SCH) NEB ×6 (03:08→23:35)
[2016-07-16] MEDS: fentaNYL DRIP 250 ML IV SCH ×3 (03:35→21:51)
[2016-07-16] MEDS: FREE WATER OG-TUBE SCH ×6 (04:00→20:00)
[2016-07-16 04:09] LABS: AUTOMATED NEUTROPHIL # 16.2 TH/MM3 (1.8-7.7); BASOPHIL % 0.1 % (0.0-2.0); EOSINOPHIL # 0.2 TH/MM3 (0-0.4); EOSINOPHIL % 1.2 % (0.0-4.0); HEMATOCRIT 30.7 % (39.0-51.0); LYMPH % 4.9 % (9.0-44.0); LYMPHOCYTE # 0.9 TH/MM3 (1.0-4.8); MEAN CELL VOLUME 97.4 FL (80.0-100.0); MEAN CORPUSCULAR HEMOGLOBIN 32.9 PG (27.0-34.0); MEAN CORPUSCULAR HGB CONC 33.7 % (32.0-36.0); NEUT % 87.8 % (16.0-70.0); PLATELET COUNT 353 TH/MM3 (150-450); RED BLOOD COUNT 3.15 MIL/MM3 (4.50-5.90); RED CELL DISTRIBUTION WIDTH 14.7 % (11.6-17.2); WHITE BLOOD COUNT 18.4 TH/MM3 (4.0-11.0)
[2016-07-16] MEDS: methylPREDNISolone SOD SUCC 40 MG/1 ML VIAL IV PUSH SCH ×2 (04:15→17:49)
[2016-07-16 04:16] LABS: HEMO FLAGS AUTO DIFF
[2016-07-16] MEDS: METOCLOPRAMIDE HCL 10 MG/2 ML VIAL IV SCH ×3 (04:16→20:04)
[2016-07-16 04:39] LABS: ALKALINE PHOSPHATASE 91 U/L (45-117); ALT (GPT) 79 U/L (12-78); ANION GAP 7 MEQ/L (5-15); AST (GOT) 70 U/L (15-37); BICARBONATE 28.1 MEQ/L (21.0-32.0); BLOOD UREA NITROGEN 100 MG/DL (7-18); CHLORIDE 109 MEQ/L (98-107); GLOMERULAR FILTRATION RATE 27 ML/MIN (>89); POTASSIUM 5.6 MEQ/L (3.5-5.1); SODIUM (NA) 144 MEQ/L (136-145); TOTAL BILIRUBIN ADULT 0.3 MG/DL (0.2-1.0)
--- NOTE | 2016-07-16 04:42 | RADRPT ---
EXAM DATE/TIME: 07/16/2016 02:47 [facility] COMPARISON: CHEST SINGLE AP, July 15, 2016, 7:05. INDICATIONS : Shortness of breath, possible pulmonary disease. MEDICAL HISTORY : Hypertension. Chronic obstructive pulmonary disease. Gastroesophageal reflux disease. SURGICAL HISTORY : None. ENCOUNTER: Subsequent ACUITY: 1 week PAIN SCORE: Non-responsive. LOCATION: Bilateral chest FINDINGS: Left subclavian line, endotracheal tube and enteric tubes are again seen. Persistent left lung consol idation not significantly changed. Right lung is clear. Cardiomegaly. CONCLUSION: No significant change has occurred. Andi Parra MD on July 16, 2016 at 4:40 Board Certified Radiologist. This report was verified electronically.
[2016-07-16] MEDS: metroNIDAZOLE 500 MG TAB PO SCH ×3 (05:16→21:51)
[2016-07-16] MEDS: METOPROLOL TARTRATE 25 MG TAB PO SCH ×3 (05:16→21:51)
[2016-07-16] MEDS: INSULIN NovoLIN REGULAR SUPPLEMENTAL SCALE SQ SCH ×4 (05:16→17:49)
[2016-07-16 06:29] LABS: METAMYELOCYTES 2 % (0-1); NEUTROPHIL # MANUAL DIFF 17.3 TH/MM3 (1.8-7.7); POLYS (SEG NEUTROPHILS) 92 % (16-70); WBC DIFF SAMPLE 100
[2016-07-16 06:30] LABS: PLATELET ESTIMATE SMEAR HIGH (NORMAL); PLATELET MORPHOLOGY NORMAL (NORMAL); SCAN/DIFF FINAL DIFF MANUAL
[2016-07-16] MEDS: DOCUSATE SODIUM 100 MG/10 ML UDC OG SCH ×2 (08:20→20:04)
[2016-07-16] MEDS: LEVOFLOXACIN 750 MG PREMIX INJ 150 ML IV SCH (08:20)
[2016-07-16] MEDS: ONDANSETRON HCL 4 MG/2 ML VIAL IV PUSH SCH (08:20)
[2016-07-16] MEDS: SENNOSIDES SYRUP 8.8 MG/5 ML CUP OG SCH ×2 (08:20→20:04)
[2016-07-16] MEDS: PANTOPRAZOLE SODIUM 40 MG VIAL IV PUSH SCH (08:20)
[2016-07-16] MEDS: ENOXAPARIN SODIUM 30 MG/0.3 ML SYRINGE SQ SCH (08:21)
[2016-07-16] MEDS: NICOTINE 21 MG/24 HR PATCH TD SCH (08:21)
[2016-07-16] MEDS: THIAMINE HCL 100 MG TAB PO SCH (08:21)
[2016-07-16] MEDS: SODIUM CHLORIDE 0.9% FLUSH 5 ML FLUSH FLUSH SCH ×2 (08:21→20:05)
[2016-07-16] MEDS: ARTIFICIAL TEARS OPTH OINT 3.5 APPLIC/3.5 GM TUBO EACH EYE SCH ×2 (08:22→20:06)
--- NOTE | 2016-07-16 08:59 | HHI.IDPN ---
Subjective Subjective Remarks ID COVERAGE Notes reviewed Afebrile BP OK Intubated, awake, did not follow Good UO Has liquid stool, volume about 500 ml, less than before WBC higher ID following for sepsis, pneumonia, legionella antigen positive, possible legionellosis with secondary bacterial infection. Mr. Ambrocio is a 55-year-old male with past medical history significant for renal calculi status post bilateral ureteral stent placements as well as hypertension who presented to the emergency department to bilateral flank pain for the past 3 days. He also had shortness of breath and chest discomfort on admission. UA with some pyuria. UC negative. CT A/P stent ok, no hydro Antibiotics Azithro IV Levaquin IV Cefepime IV Flagyl oral Lines Line sites with no e/o infection Past Medical History reviewed. 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 Vital Signs Date Time Temp Pulse Resp B/P Pulse Ox O2 Delivery O2 Flow Rate FiO2 07/16/16 07:14 92 60 07/16/16 06:00 85 07/16/16 04:03 94 60 07/16/16 04:00 82 07/16/16 04:00 98.1 82 18 114/66 95 140/71 07/16/16 04:00 82 114/66 140/71 07/16/16 04:00 60 07/16/16 02:00 79 07/16/16 01:05 94 60 07/16/16 00:00 60 07/16/16 00:00 80 114/60 132/68 07/16/16 00:00 98.3 80 18 114/60 93 132/68 07/16/16 00:00 80 07/15/16 23:05 94 60 07/15/16 22:00 95 07/15/16 21:18 96 60 07/15/16 20:00 72 120/66 145/78 07/15/16 20:00 72 07/15/16 20:00 97.6 72 18 120/66 96 145/78 07/15/16 20:00 60 07/15/16 18:00 74 1/28/17 16:00 60 07/15/16 16:00 75 07/15/16 16:00 75 141/72 157/75 07/15/16 16:00 97.6 78 18 158/84 94 174/79 07/15/16 15:18 95 60 07/15/16 14:00 71 07/15/16 12:00 68 158/84 174/79 07/15/16 12:00 78 07/15/16 12:00 60 07/15/16 12:00 97.6 78 18 158/84 94 174/79 07/15/16 11:12 93 60 07/15/16 10:00 73 07/15/16 07/15/16 07/16/16 15:00 23:00 07:00 Intake Total 3198 ml 1536 ml Output Total 3500 ml 1700 ml Balance -302 ml -164 ml IV Total 1457 ml 520 ml Tube Feeding 691 ml 316 ml Tube Irrigant 90 ml Other 960 ml 700 ml Output Urine Total 3400 ml 1300 ml Stool Total 100 ml 400 ml . Laboratory Tests Test 07/15/16 07/16/16 07:25 03:45 White Blood Count 16.8 TH/MM3 18.4 TH/MM3 Red Blood Count 3.18 MIL/MM3 3.15 MIL/MM3 Hemoglobin 10.3 GM/DL 10.3 GM/DL Hematocrit 30.6 % 30.7 % Mean Corpuscular Volume 96.2 FL 97.4 FL Mean Corpuscular Hemoglobin 32.5 PG 32.9 PG Mean Corpuscular Hemoglobin 33.7 % 33.7 % Concent Red Cell Distribution Width 14.5 % 14.7 % Platelet Count 346 TH/MM3 353 TH/MM3 Mean Platelet Volume 8.4 FL 8.7 FL Neutrophils (%) (Auto) 89.5 % 87.8 % Lymphocytes (%) (Auto) 4.0 % 4.9 % Monocytes (%) (Auto) 6.3 % 6.0 % Eosinophils (%) (Auto) 0.1 % 1.2 % Basophils (%) (Auto) 0.1 % 0.1 % Neutrophils # (Auto) 15.0 TH/MM3 16.2 TH/MM3 Lymphocytes # (Auto) 0.7 TH/MM3 0.9 TH/MM3 Monocytes # (Auto) 1.1 TH/MM3 1.1 TH/MM3 Eosinophils # (Auto) 0.0 TH/MM3 0.2 TH/MM3 Basophils # (Auto) 0.0 TH/MM3 0.0 TH/MM3 CBC Comment AUTO DIFF AUTO DIFF Differential Comment AUTO DIFF FINAL DIFF CONFIRMED MANUAL Differential Total Cells 100 Counted Neutrophils % (Manual) 92 % Lymphocytes % 1 % Monocytes % 5 % Neutrophils # (Manual) 17.3 TH/MM3 Metamyelocytes 2 % Platelet Estimate HIGH Platelet Morphology Comment NORMAL Red Cell Morphology Comment NORMAL Laboratory Tests Test 07/15/16 07/16/16 07:25 03:45 Sodium Level 146 MEQ/L 144 MEQ/L Potassium Level 4.7 MEQ/L 5.6 MEQ/L Chloride Level 111 MEQ/L 109 MEQ/L Carbon Dioxide Level 27.2 MEQ/L 28.1 MEQ/L Anion Gap 8 MEQ/L 7 MEQ/L Blood Urea Nitrogen 98 MG/DL 100 MG/DL Creatinine 2.99 MG/DL 2.48 MG/DL Estimat Glomerular Filtration 22 ML/MIN 27 ML/MIN Rate Random Glucose 159 MG/DL 159 MG/DL Calcium Level 8.1 MG/DL 8.7 MG/DL Total Bilirubin 0.3 MG/DL 0.3 MG/DL Aspartate Amino Transf 87 U/L 70 U/L (AST/SGOT) Alanine Aminotransferase 87 U/L 79 U/L (ALT/SGPT) Alkaline Phosphatase 99 U/L 91 U/L Total Protein 6.3 GM/DL 6.2 GM/DL Albumin 1.8 GM/DL 1.9 GM/DL Imaging Chest X-Ray 07/16/16 0000 Signed Impressions: Service Date/Time: Saturday, July 16, 2016 02:47 - CONCLUSION: No significant change has occurred. Andi Parra MD Chest X-Ray 07/15/16 0000 Signed Impressions: Service Date/Time: Friday, July 15, 2016 07:05 - CONCLUSION: 1. Improved aeration of the left upper lung compared to the prior examination. 2. Mild infiltrate right upper lung. Elgin Levin MD Chest X-Ray 07/15/16 0000 Signed Impressions: Service Date/Time: Friday, July 15, 2016 07:05 - CONCLUSION: 1. Improved aeration of the left upper lung compared to the prior examination. 2. Mild infiltrate right upper lung. Elgin Levin MD Soft Tissue Ultrasound 07/12/16 0000 Signed Impressions: Service Date/Time: Tuesday, July 12, 2016 19:25 - CONCLUSION: Well- defined heterogeneous mass which is nonspecific but likely represents a sebaceous cyst. Alexandro De La O MD Abdomen X-Ray 07/12/16 0000 Signed Impressions: Service Date/Time: Tuesday, July 12, 2016 16:59 - CONCLUSION: Nonspecific, benign abdomen appearance. Patel Torres MD Abdomen/Pelvis CT 07/07/16 1110 Signed Impressions: Service Date/Time: Thursday, July 07, 2016 11:31 - CONCLUSION: 1. Renal stones and stents in good position as described above. Yosvany Fuentes MD FACR Chest CT 07/07/16 0000 Signed Impressions: Service Date/Time: Thursday, July 07, 2016 16:09 - CONCLUSION: 1. Consolidative changes in the left upper lobe. There is suspicious adenopathy in the mediastinum. This may be more than an inflammatory process. 2. Bronchoscopy may be the easiest way to make a diagnosis of a neoplastic process. Yosvany Fuentes MD FACR Last Impressions Chest X-Ray 07/09/16 0000 Signed Impressions: Service Date/Time: Saturday, July 09, 2016 10:44 - CONCLUSION: Left subclavian central line tip is in the superior aspect of the SVC. No pneumothorax is visualized. Otherwise, stable exam. Patel Palmer MD Abdomen/Pelvis CT 07/07/16 1110 Signed Impressions: Service Date/Time: Thursday, July 07, 2016 11:31 - CONCLUSION: 1. Renal stones and stents in good position as described above. Yosvany Fuentes MD FACR Chest CT 07/07/16 0000 Signed Impressions: Service Date/Time: Thursday, July 07, 2016 16:09 - CONCLUSION: 1. Consolidative changes in the left upper lobe. There is suspicious adenopathy in the mediastinum. This may be more than an inflammatory process. 2. Bronchoscopy may be the easiest way to make a diagnosis of a neoplastic process. Yosvany Fuentes MD FACR Physical Exam GENERAL: Obese. Well nourished. On the vent., NAD Awake, did not follow SKIN: No rashes. Cool and dry. HEENT: [place] conjunctiva, no icterus, orally intubated. CARDIOVASCULAR: HS audible. No murmur appreciated. RESPIRATORY: Coarse BS mary, decreased at bases GASTROINTESTINAL: Mildly distended, not tender MUSCULOSKELETAL: Edema hands and feet, no cyanosis Psych could not be assessed IV line sites with no evidence of infection. Assessment & Plan Remarks Severe sepsis present on admission(criteria explained in history of present illness) Pneumonia present on admission (community acquired, atypical, possible component of healthcare associated pneumonia) Likely Legionella Pneumonia with ARDS Bilateral ureteral stents. Acute renal failure present on admission likely sepsis, AIN, ATN. Acute metabolic encephalopathy: likely secondary to sepsis Leukocytosis, higher Recommendations: Continue Azithromycin IV (will likely need 3 weeks or more) Continue Levaquin IV (will likely need 3 weeks or more) Continue Cefepime IV Continue Flagyl oral (aspiration risk) Repeat C/S Monitor progress Follow CBC Kinga Grace MD Jul 16, 2016 08:59
[2016-07-16] MEDS ORDERED: INSULIN HUMAN REGULAR 1,000 UNITS/10 ML VIAL IV PUSH ONE (10:15)
[2016-07-16] MEDS ORDERED: SODIUM BICARBONATE 8.4% SOLN 50 MEQ/50 ML VIAL SLOW IVP ONE (10:15)
[2016-07-16 10:29] LABS: BLOOD GAS BASE EXCESS 0.3 mmol/L (-2-2); BLOOD GAS CARBOXYHEMOGLOBIN 1.1 % (0-4); BLOOD GAS HCO3 25 mmol/L (22-26); BLOOD GAS METHEMOGLOBIN 1.7 % (0-2); BLOOD GAS O2 HGB SATURATION 94 % (90-100); BLOOD GAS OXYGEN CONTENT 15.5 Vol % (12.0-20.0); BLOOD GAS PCO2 46 mmHg (38-42); BLOOD GAS PO2 99 mmHg (61-120); BLOOD GAS TOTAL HGB 11.6 G/DL (12.0-16.0); CRITICAL VALUE NO; DRAW SITE ART LINE; FIO2 60 %; OXYGEN DEVICE VENTILATOR; STAT NO; TEMP CORR TO 98.6; ULNAR PULSE PRESENT; VENT SETTINGS AC/18/600/PEEP10
--- NOTE | 2016-07-16 10:29 | HHI.CCPN ---
Subjective Remarks/Hospital Course The patient is a 55-year-old male with a past medical history of hypertension, renal calculi, status post bilateral ureteral stent placement in April, . He presented to [facility] ED with a three-day history of bilateral flank pain associated with fever and severe body aches. Just prior to admission, the patient had gross hematuria per his daughter and had decreased p.o. intake. The patient denied any shortness of breath or chest pain. Due to his abdominal pain, a CT scan of the abdomen and pelvis was obtained which showed renal stones and stent in place. An initial chest x-ray in the ED showed extensive airspace disease throughout the left upper lobe characteristic of pneumonia. He subsequently underwent a CT scan of the chest which showed consolidative changes in the left upper lobe along with suspicious adenopathy in the mediastinum. His initial creatinine level was 1.6 and the patient was placed on broad-spectrum antibiotics in addition to IV fluids. His laboratory data from today showed improvement of his renal function with a creatinine of 1.30 and lactic acid level measured at 1.0. [facility] was called for respiratory distress and the patient was a nonrebreather mask and transferred to [facility] When seen in the ICU he was tachypneic, tachycardic and had a temperature of 103. The patient was subsequently intubated by myself and placed on full mechanical ventilation. A chest x-ray post intubation showed severe diffuse left lung airspace consolidation and a new mild consolation versus atelectasis in the right midlung zone. His nasal washing on arrival negative for influenza, and blood cultures and urine culture from yesterday showed no growth to date. The patient had a temperature of 102.8 earlier today. 07/09 Patient is sedated with versed, Fentanyl and intubated. Now on PRVC with RR 20, TV 550, IT:1, PEEP:15 and FIO2 100%. Afebrile. His Legionella urinary AG is positive. Renal function worse today with Cr 1.86 from 1.30 07/10: Patient remains very critical. Placed on Prone therapy yesterday for worsening respiratory status and severe hypoxia. Worsening renal function- creatinine increased from 1.8-2.8 today, urology following, will consult nephrology. Remains on 4 mics per minute of Levophed, urine output adequate 1.9 L in 24 hours. Currently on broad-spectrum antibiotics per ID on Zosyn and azithromycin Zyvox. I have added Levaquin for double coverage for Legionella 07/11: Remains intubated sedated. FiO2 at 50%. Chest x-ray shows bilaterally improving aeration. We'll reduce PEEP to 12. Urine output is adequate but creatinine has increased to 3. 07/12: Patient remains on prone therapy, remains critically ill but slowly his improving oxygenation. Currently on 10 of PEEP and 50% oxygen. Urine output is 1.7 L in 24 hours, increase in BUN to 79 creatinine is 3.2. We'll start weaning and starting today 07/13: Remains critically ill, but showing continued signs of improvement. UO >4L , Cr improved from 3.2 to 2.8. On weaning doses of Flolan. Maintaining oxygen saturation above 90% on 45% FiO2. WBC count is trending down. Will discontinue prone therapy today 07/14 Patient is off Rotoprone bed on ACV with RR 18, TV 600, PEEP: 10 and FIO2 50%. Sedated with Diprivan/Fentanyl and Versed. Afebrile.Renal function worse today with Cr: 3.17 today from 2.79 with UO 3600ml in 24 hrs. 07/15 Patient remains sedated and intubated. Afebrile. Now on ACV with RR 18, TV 600< PEEP:10 and FIO2 increased 60%. Subjective 07/16: Tmax 99.1. Tolerating tube feeding. Positive BM. Arousable on the ventilator. Objective Vital Signs Date Time Temp Pulse Resp B/P Pulse Ox O2 Delivery O2 Flow Rate FiO2 07/16/16 10:00 96 07/16/16 07:14 92 60 07/16/16 04:00 98.1 18 114/66 140/71 Intake and Output 07/15/16 07/15/16 07/16/16 08:00 16:00 00:00 Intake Total 1305 ml 2120 ml 1078 ml Output Total 1000 ml 2400 ml 1100 ml Balance 305 ml -280 ml -22 ml Result Diagram: 07/16/16 0345 07/16/16 0345 Imaging Last Impressions Chest X-Ray 07/16/16 0000 Signed Impressions: Service Date/Time: Saturday, July 16, 2016 02:47 - CONCLUSION: No significant change has occurred. Andi Parra MD Soft Tissue Ultrasound 07/12/16 0000 Signed Impressions: Service Date/Time: Tuesday, July 12, 2016 19:25 - CONCLUSION: Well- defined heterogeneous mass which is nonspecific but likely represents a sebaceous cyst. Alexandro De La O MD Abdomen X-Ray 07/12/16 0000 Signed Impressions: Service Date/Time: Tuesday, July 12, 2016 16:59 - CONCLUSION: Nonspecific, benign abdomen appearance. Patel Torres MD Abdomen/Pelvis CT 07/07/16 1110 Signed Impressions: Service Date/Time: Thursday, July 07, 2016 11:31 - CONCLUSION: 1. Renal stones and stents in good position as described above. Yosvany Fuentes MD FACR Chest CT 07/07/16 0000 Signed Impressions: Service Date/Time: Thursday, July 07, 2016 16:09 - CONCLUSION: 1. Consolidative changes in the left upper lobe. There is suspicious adenopathy in the mediastinum. This may be more than an inflammatory process. 2. Bronchoscopy may be the easiest way to make a diagnosis of a neoplastic process. Yosvany Fuentes MD FACR Objective Remarks GENERAL: Patient is 55 yo critically ill intubated and sedated. SKIN: Warm and dry. No rashes. No skin breakdown HEAD: Normocephalic. EYES: No injection or drainage. NECK: Supple, trachea midline. Orally intubated CARDIOVASCULAR: Regular rate and rhythm S1, S2 no S4. Currently without murmurs , gallops, or rubs. RESPIRATORY: Breath sounds equal bilaterally with few coarse BS appreciated throughout the left lung alba GASTROINTESTINAL: Abdomen soft, non-tender, nondistended. MUSCULOSKELETAL: No independent peripheral edema. NEURO: Arousable on the ventilator. Follows commands. Urinary Catheter: Yes Assessment to: Continue Khan insert reason: Prolonged Immobilization Vascular Central Line Catheter: Yes Line: Central Venous Catheter Side: Left Location: Subclavian A/P Assessment and Plan PROBLEM LIST Acute hypoxemic respiratory failure s/p Septic shock ARDS Acute kidney failure Acute metabolic encephalopathy History of hypertension Leukocytosis Mild hyponatremia Plan Neuro/Psych: Acute toxic metabolic encephalopathy secondary to likely Legionella pneumonia -On Versed, Fentanyl and Diprivan infusion for sedation. off Nimbex- discontinued 07/13 -Continue with thiamine 100 mg daily. Continue close neuro monitoring -Daily sedation vacation when appropiate Pulm: Acute hypoxemic respiratory failure secondary to pneumonia/community acquired ARDS ACV 18/600/10/60 Ventilator bundle Bronchodilator therapy every 6 hours and as needed -off Prone therapy for severe ARDS initiated 07/09/16. Discontinued 07/13/16 Solumederol 40mg q12, Pulm is following-Dr. Jaimes Chest x-ray revealed persistent left lobar pneumonia. CV: Hypertension History dyslipidemia -Monitor HR and BP keep MAP>65mmHg. Lactic acid level measured at 1.4 -2D echo 07/10/16-EF 60%, moderate LVH -On Hydralazine 50mg Q8, Norvasc 10mg daily, Metoprolol 50mg Q8 - On Lipitor 80 mg by mouth daily for dyslipidemia Home medication atorvastatin 80 mg daily for dyslipidemia. Home medication Norvasc 10 no grams daily for hypertension. /renal: Urinary tract infection History of renal calculi with bilateral ureteral stent placement in April -Nephrology Dr. Handley following for worsening renal function. -Off Bumex. -Urology service consulted for hx flank pain and renal calculi with ureteral stent placement-CT abdomen pelvis showed stents in good position Plan for a stent removal/ureteroscopy with possible lithotripsy once patient is medically stable -Acute kidney failure could be related to severe sepsis and hypotension -Monitor renal function, Is and Os and electrolyte replacement as needed. -Follow up on CMP today, UO 3600ml in 24 hrs -On Free water 300ml Q4, monitor Na level. GI: -On tube feeds- Glucerna 1.5@45ml/hr, Protonix 40mg IV daily for GI prophylaxis -Bowel regimen with Colace and senna. -Continue Reglan ID: Likely Legionella pneumonia -Continue with ABX per ID Continue Azithromycin IV, Levaquin IV, Cefepime 2 gm IV q24hrs and Flagyl oral - Blood cultures 2 - 07/09 - no growth - Blood Cultures 2 - 07/08 - no growth --07/08 Legionella urinary antigen positive. -07/07 BC : GPC 06/21 bottles-coag neg staph, probable contaminant - 07/07 urine no growth- Sputum - 07/07 no growth Endo: Hyperglycemia/steroid-induced -SSI with Accu-Chek q.6 hours for glycemic control Heme: Leukocytosis -Monitor CBC. GI Protein calorie malnutrition/moderate Gastroesophageal reflux disease Switch to Nepro today by nephrology. Protonix for GI prophylaxis. On Dexilant 60 mg by mouth daily at home. Colace/Senokot for bowel regimen. Check C. difficile FEN Hyperkalemia Recheck in 3 hours. Given calcium gluconate, D50/insulin, bicarbonate and A 1. Switch to feeding as above. Proph: -GI prophylaxis with Protonix 40 mg daily and DVT prophylaxis with SCDs and Lovenox subcu. Lines: -Peripheral IV, L subclavian central line 07/09/16 Follow up on labs Critical Care: The total critical care time was 35 minutes. Time to perform other separately billable procedures was not included in the critical care time. Layton Wilkins MD Jul 16, 2016 10:29
--- NOTE | 2016-07-16 10:40 | HHI.NPPN ---
Subjective General Problems: Anemia, Edema Renal Failure: Acute Interval History remains on the vent with FiO2 of 60 %. Excellent urine output. Has developed hyperkalemia. Serum Na has improved. Review of Systems General General Remarks unable to obtain due to intubation/sedation Objective Data Data 07/15/16 07/16/16 19:00 07:00 Intake Total 2120 ml 2614 ml Output Total 2400 ml 2800 ml Balance -280 ml -186 ml IV Total 975 ml 1002 ml Tube Feeding 455 ml 552 ml Tube Irrigant 90 ml Other 600 ml 1060 ml Output Urine Total 2300 ml 2400 ml Stool Total 100 ml 400 ml Vital Signs Date Time Temp Pulse Resp B/P Pulse Ox O2 Delivery O2 Flow Rate FiO2 07/16/16 10:00 96 07/16/16 08:00 84 150/79 176/85 07/16/16 08:00 60 07/16/16 08:00 84 07/16/16 08:00 99.1 84 18 150/79 93 176/85 07/16/16 07:14 92 60 07/16/16 06:00 85 07/16/16 04:03 94 60 07/16/16 04:00 82 07/16/16 04:00 98.1 82 18 114/66 95 140/71 07/16/16 04:00 82 114/66 140/71 07/16/16 04:00 60 07/16/16 02:00 79 07/16/16 01:05 94 60 07/16/16 00:00 60 07/16/16 00:00 80 114/60 132/68 07/16/16 00:00 98.3 80 18 114/60 93 132/68 07/16/16 00:00 80 07/15/16 23:05 94 60 07/15/16 22:00 95 07/15/16 21:18 96 60 07/15/16 20:00 72 120/66 145/78 07/15/16 20:00 72 07/15/16 20:00 97.6 72 18 120/66 96 145/78 07/15/16 20:00 60 07/15/16 18:00 74 07/15/16 16:00 60 07/15/16 16:00 75 07/15/16 16:00 75 141/72 157/75 07/15/16 16:00 97.6 78 18 158/84 94 174/79 07/15/16 15:18 95 60 07/15/16 14:00 71 07/15/16 12:00 68 158/84 174/79 07/15/16 12:00 78 07/15/16 12:00 60 07/15/16 12:00 97.6 78 18 158/84 94 174/79 07/15/16 11:12 93 60 -: 07/16/16 0345 07/16/16 0345 Tubes & Lines: Khan Tubes & Lines Comment NG tube, A line , rectal tube Drip Comment fentanyl, versed, propofol Physical Exam General Appearance: Well Developed Eyes Eye Exam: Pupils Equal Neck Neck Exam: Neck Supple Pulmonary Resp Exam: Crackles, Rhonchi, Decreased Bases Cardiology CV Exam: Regular, Normal Sinus Rhythm Gastrointestinal/Abdomen GI Exam: Soft, Non-Tender, Bowel Sounds Present Musculoskeletal MS Exam: Joints Intact, Normal Tone Integumentary Skin Exam: Warm, Dry Extremeties Extremities Exam: Pedal Pulses Palpable, Moderate Edema, Pitting Edema, Dependent Edema Neurologic Neuro Exam: Unresponsive, Sedated VTE Prophylaxis Device: SCDs Assessment/Plan Discussed Condition With: Daughter Assessment Summary: JASON/Acute Renal Failure, Fluid/Volume Overload Electrolyte Assessment: Hypernatremia Problem List: (1) Acute renal failure Plan: His creatinine was 1.13 on 07/08 he became septic around that time with BP 70/30s, started on pressors JASON due to decreased renal perfusion (sepsis),ATN. AIN is another possibility. Non oliguric, renal function is slightly better. Continue Diuril. Minimize IVF. Double concentrate all fluids. (2) Sepsis Plan: due to legionella, ARDS WBC trending down, he is afebrile, recent blood cultures are negative he is on Zithromax, Cefepime, Levaquin, and Flagyl with nebulizers. ID following. (3) Hypernatremia Plan: continue Diuril. free water through tube feeding increased monitor serum sodium Improved. (4) Left flank pain Plan: with non obstructing stone s/p previous bilateral ureteral stent placement, may need lithotripsy and stent removal in future urology has evaluated (5) Hyperkalemia Plan: Change TF to Nepro. Repeat labs. Harvey Handley MD Jul 16, 2016 10:40
[2016-07-16] MEDS: CEFEPIME INJ 2,000 MG in SODIUM CHLORIDE 0.9% INJ 100 ML IV SCH ×2 (10:42→21:51)
[2016-07-16] MEDS ORDERED: DEXTROSE 50% IN WATER 50 ML VIAL(D50) IV PUSH ONE (11:00)
[2016-07-16] MEDS ORDERED: CHLOROTHIAZIDE SOD 500 MG VIAL IV ONE (11:00)
[2016-07-16] MEDS ORDERED: CALCIUM GLUCONATE 10% 1 GM/10 ML VIAL SLOW IVP ONE (11:00)
[2016-07-16] MEDS ORDERED: SODIUM POLYSTYRENE SULFONATE SUSP 15 GM/60 ML CUP TUBE ONE (11:00)
[2016-07-16] MEDS: AZITHROMYCIN INJ 500 MG in SODIUM CHLOR 0.9% 250 ML INJ 250 ML IV SCH (11:02)
[2016-07-16 11:05] LABS: BACTERIA, URINE RARE /hpf; BLOOD, URINE MOD (NEG); GLUCOSE,URINE NEG (NEG); KETONE, URINE NEG (NEG); MUCUS URINE FEW /lpf (OCC); NITRITE,URINE NEG (NEG); PH, URINE 5.5 (5.0-8.5); TRANSITIONAL EPI CELLS, URINE <1 /hpf; URINE COLOR YELLOW (YELLW/STRAW)
[2016-07-16 11:08] LABS: COMMENT (UR) CATH-CULTURE IND; CULTURE IF INDICATED CATH CULTURE IND
[2016-07-16 12:42] LABS: C. DIFF EPI 027 PRESUMPTIVE NEGATIVE (NEGATIVE); C. DIFF TOXIN PCR NEGATIVE (NEGATIVE)
--- NOTE | 2016-07-16 13:45 | HHI.FPPN ---
Subjective Remarks Afebrile. Good UOP of 4700 mL over past 24 hours. Intubated on mech vent, PEEP of 10, FIO2 60%. Objective Vitals Vital Signs Date Time Temp Pulse Resp B/P Pulse Ox O2 Delivery O2 Flow Rate FiO2 07/16/16 12:00 107 07/16/16 12:00 60 07/16/16 12:00 98.3 107 18 171/85 95 Arterial Line 07/16/16 11:31 92 60 07/16/16 10:00 96 07/16/16 08:00 84 150/79 176/85 07/16/16 08:00 60 07/16/16 08:00 84 07/16/16 08:00 99.1 84 18 150/79 93 176/85 07/16/16 07:14 92 60 07/16/16 06:00 85 07/16/16 04:03 94 60 07/16/16 04:00 82 07/16/16 04:00 98.1 82 18 114/66 95 140/71 07/16/16 04:00 82 114/66 140/71 07/16/16 04:00 60 07/16/16 02:00 79 07/16/16 01:05 94 60 07/16/16 00:00 60 07/16/16 00:00 80 114/60 132/68 07/16/16 00:00 98.3 80 18 114/60 93 132/68 07/16/16 00:00 80 07/15/16 23:05 94 60 07/15/16 22:00 95 07/15/16 21:18 96 60 07/15/16 20:00 72 120/66 145/78 07/15/16 20:00 72 07/15/16 20:00 97.6 72 18 120/66 96 145/78 07/15/16 20:00 60 07/15/16 18:00 74 07/15/16 16:00 60 07/15/16 16:00 75 07/15/16 16:00 75 141/72 157/75 07/15/16 16:00 97.6 78 18 158/84 94 174/79 07/15/16 15:18 95 60 07/15/16 14:00 71 I/O 07/15/16 07/15/16 07/15/16 07/16/1607/16/17 1/29/17 07:00 15:00 23:00 07:00 15:00 23:00 Intake Total 1305 ml 3198 ml 1536 ml Output Total 1000 ml 3500 ml 1700 ml Balance 305 ml -302 ml -164 ml IV Total 433 ml 1457 ml 520 ml Tube Feeding 212 ml 691 ml 316 ml Tube Irrigant 90 ml Other 660 ml 960 ml 700 ml Output Urine Total 700 ml 3400 ml 1300 ml Stool Total 300 ml 100 ml 400 ml Result Diagram: 07/16/1634407/16/16344 Objective Remarks GEN: Well-developed, well-nourished patient. Sed[facility] and [facility] , supine position. CV: Regular rate and rhythm without obvious murmurs or rubs. LUNGS: Coarse breath sounds bilaterally but with good air movement. No wheezes or crackles. ABD: Distended but soft. : good urine output in [place] NEURO/PSYCH: Sedated Line: Central Venous Catheter Side: Left Location: Subclavian A/P Assessment and Plan 55 year old male with h/o HTN, renal calculi, s/p bilateral ureteral stent placements presented due to bilateral flank pain more significant on the left x 3 days, admitted for left-sided pneumonia, sepsis, possible UTI. Critical care was consulted on 07/08 due to acute worsening of symptoms associated with respiratory distress. Neuro: Sedated due to intubation, acute metabolic encephalopathy -On Versed, Fentanyl, and propofol for sedation. -Nimbex discontinued 07/13 -Daily sedation vacation Pulm: Left legionella pneumonia, severe ARDS, respiratory distress, COPD, suspicious adenopathy in the mediastinum -Discontinued prone position 07/09/16-07/13/16 Pulmonary consulted: appreciate recommendations * Will require bronchoscopic examination -Currently on PEEP of 10, FiO2 of 60%, RR 18, TV 600 Imaging: * CXR today without significant change * CXR 07/15: Improved aeration of the left upper lobe compared to prior examination. Mild infiltrate right upper lobe. * CXR 07/09: Persistent severe diffuse left lung air space consolidation with likely left pleural effusion. Stable subtle airspace consolidation/opacity the in the right midlung * Chest CT: Consolidative changes in the left upper lobe. There is suspicious adenopathy in the mediastinum. This may be more than an inflammatory process Medications: * Albuterol and Duonebs * Solu-Medrol, 40mg Q12 Cardiac: HLD, HTN -ACS negative -Echo 07/10: Mild to moderate LVH, normal systolic function, ejection fraction estimated to be 60%. No regional wall motion abnormalities. Mild mitral valve regurgitation. Medications: * Amlodipine 10 mg * Hydralazine 50mg PO q8 and PRN * Metoprolol 50 mg q8 * Atorvastatin 80 mg * Labetalol 20 mg PRN : S/P bilateral ureteral stents, JASON -Creatinine continue to downtrend to 2.48 today. Good UOP Urology consulted: Appreciate recommendations * Once clinical picture improves, may remove stents versus attempted attempted ureteroscopy and laser lithotripsy * Will follow Nephrology consulted: appreciate recommendations * JASON likely due to decreased renal perfusion * Minimize IVF. Double concentrate all fluids. * bump in Cr may have been due to aggressive diuresis GI: -On tube feeds- Glucerna -Metoclopramide schedule q8 -Protonix 40mg IV daily for GI prophylaxis ID: Legionella pneumonia, leukocytosis, septic shock, -Leukocytosis improving but now stagnant, still receiving steroids -Afebrile since 07/09 -Legionella antigen positive in urine -1 of 2 blood culture on 07/07 positive for staph S/P coagulase-negative, likely due to contamination -Repeat blood cultures, sputum cultures, urine cx NGTD -urine eosinophils none seen -Follow repeat Urine and sputum culture 07/16 ID consulted: Appreciate recommendations * Cefepime 07/11 * Flagyl 07/11 * Azithromycin 07/08- * Levaquin 07/10- Discontinued ABX: * Zyvox 07/09-07/11 * Zosyn 07/07-07/11 * Vancomycin 07/07-07/09, discontinued due to concern for drug fever and allergic interstitial nephritis Endo: SSI with Accu-Chek DVT Prophylaxis - Lovenox Discharge Planning Timetable unknown. Pending respiratory improvement. sdw Dr. Meyers Problem List: (1) Legionella pneumonia Status: Acute (2) Acute respiratory failure with hypoxia Status: Acute (3) Acute renal failure Status: Acute (4) Sepsis Status: Acute (5) COPD (chronic obstructive pulmonary disease) Status: Acute Matias Lewis MD R1 Jul 16, 2016 13:45
--- NOTE | 2016-07-16 18:29 | HHI.FPPN ---
Addendum to progress note ADDENDUM Reason for addendum: Additonal documentation Additional information Off-service Note 55 year old male presented due to left lateral chest wall pain, fever, chills, body aches, and cough, and found to have Legionella pneumonia. The patient acutely developed hypoxemic respiratory failure requiring intubation on 07/08. Critical care has been managing; patient was on prone therapy now discontinued. He is being treated with broad-spectrum antibiotics and double coverage for Legionella with Levaquin, Azithromycin, Flagyl, and Cefepime. Currently still being weaned from ventilator. Matias Lewis MD R1 Jul 16, 2016 18:29
[2016-07-16] MEDS: ATORVASTATIN 80 MG TAB PO SCH (20:04)
[2016-07-16] MEDS: REMOVE OLD NICODERM (NICOTINE) PATCH TD SCH (20:05)
[2016-07-17] VITALS (17 sets, daily range): BP systolic 113–147; BP diastolic 62–84; PULSE 75–91; RESP 18–21; TEMP 98.5–98.9; O2SAT 94–100
[2016-07-17] MEDS: hydrALAZINE HCL 50 MG TAB PO SCH ×3 (00:39→17:46)
[2016-07-17] MEDS: INSULIN NovoLIN REGULAR SUPPLEMENTAL SCALE SQ SCH ×4 (00:39→17:46)
[2016-07-17] MEDS: PROPOFOL 1000 MG/100 ML INJ 100 ML IV SCH ×3 (01:43→21:07)
[2016-07-17] MEDS: RESP: ALBUTEROL 2.5 MG/IPRATROPIUM 0.5 MG NEB (SCH) NEB ×6 (03:24→23:44)
[2016-07-17] MEDS: FREE WATER OG-TUBE SCH ×6 (04:00→19:56)
--- NOTE | 2016-07-17 04:35 | RADRPT ---
EXAM DATE/TIME: 07/17/2016 02:34 [place] COMPARISON: CHEST SINGLE AP, July 16, 2016, 2:47. INDICATIONS : Shortness of breath, possible pulmonary disease. MEDICAL HISTORY : Hypertension. Chronic obstructive pulmonary disease. Gastroesophageal reflux disease. SURGICAL HISTORY : None. ENCOUNTER: Subsequent ACUITY: 1 week PAIN SCORE: Non-responsive. LOCATION: Bilateral chest FINDINGS: There is worsening consolidation and volume loss on the left. On the right, just minimal atelectasis again seen at the base. No definite effusion. No pneumothorax seen. Endotracheal tube tip is about 4 cm above the level of the farooq. There is a nasogastric tube coursi ng into the stomach. Left subclavian central venous catheter has its tip in the superior vena cava. CONCLUSION: Worsening consolidation and volume loss on the left. Patel Sanchez MD on July 17, 2016 at 4:33 Board Certified Radiologist. This report was verified electronically.
[2016-07-17] MEDS: methylPREDNISolone SOD SUCC 40 MG/1 ML VIAL IV PUSH SCH ×2 (04:46→17:00)
[2016-07-17] MEDS: METOCLOPRAMIDE HCL 10 MG/2 ML VIAL IV SCH ×3 (04:46→19:58)
[2016-07-17 05:00] LABS: AUTOMATED NEUTROPHIL # 14.1 TH/MM3 (1.8-7.7); BASOPHIL % 0.1 % (0.0-2.0); EOSINOPHIL % 0.1 % (0.0-4.0); HEMATOCRIT 29.5 % (39.0-51.0); LYMPH % 5.6 % (9.0-44.0); LYMPHOCYTE # 0.9 TH/MM3 (1.0-4.8); MEAN CORPUSCULAR HGB CONC 34.3 % (32.0-36.0); MONO % 8.5 % (0.0-8.0); NEUT % 85.7 % (16.0-70.0); PLATELET COUNT 341 TH/MM3 (150-450); RED BLOOD COUNT 3.07 MIL/MM3 (4.50-5.90); RED CELL DISTRIBUTION WIDTH 14.5 % (11.6-17.2); WHITE BLOOD COUNT 16.5 TH/MM3 (4.0-11.0)
[2016-07-17 05:04] LABS: HEMO FLAGS AUTO DIFF
[2016-07-17 05:45] LABS: ALKALINE PHOSPHATASE 80 U/L (45-117); ALT (GPT) 72 U/L (12-78); ANION GAP 7 MEQ/L (5-15); AST (GOT) 58 U/L (15-37); BICARBONATE 30.3 MEQ/L (21.0-32.0); BLOOD UREA NITROGEN 92 MG/DL (7-18); CHLORIDE 109 MEQ/L (98-107); GLOMERULAR FILTRATION RATE 30 ML/MIN (>89); MAGNESIUM 2.5 MG/DL (1.5-2.5); POTASSIUM 5.2 MEQ/L (3.5-5.1); SODIUM (NA) 146 MEQ/L (136-145); TOTAL BILIRUBIN ADULT 0.3 MG/DL (0.2-1.0)
[2016-07-17] MEDS: METOPROLOL TARTRATE 25 MG TAB PO SCH ×3 (05:48→22:03)
[2016-07-17] MEDS: metroNIDAZOLE 500 MG TAB PO SCH ×3 (05:48→22:03)
[2016-07-17 07:56] LABS: BANDS 3 % (0-6); METAMYELOCYTES 1 % (0-1); NEUTROPHIL # MANUAL DIFF 13.9 TH/MM3 (1.8-7.7); PLATELET ESTIMATE SMEAR NORMAL (NORMAL); PLATELET MORPHOLOGY NORMAL (NORMAL); POLYS (SEG NEUTROPHILS) 79 % (16-70); PROMYELOCYTES 1 % (0-0); SCAN/DIFF FINAL DIFF MANUAL; WBC DIFF SAMPLE 100
[2016-07-17] MEDS ORDERED: INSULIN HUMAN REGULAR 1,000 UNITS/10 ML VIAL IV PUSH ONE ×2 (08:45→21:30)
[2016-07-17] MEDS ORDERED: SODIUM POLYSTYRENE SULFONATE SUSP 15 GM/60 ML CUP PO ONE (08:45)
[2016-07-17] MEDS ORDERED: SODIUM BICARBONATE 8.4% SOLN 50 MEQ/50 ML VIAL SLOW IVP ONE (08:45)
[2016-07-17] MEDS ORDERED: CALCIUM GLUCONATE 10% 1 GM/10 ML VIAL SLOW IVP ONE (08:45)
[2016-07-17] MEDS ORDERED: DEXTROSE 50% IN WATER 50 ML VIAL(D50) IV PUSH ONE ×2 (08:45→21:30)
[2016-07-17] MEDS ORDERED: CALCIUM CHLORIDE 10% SOLN 1 GRAM/10 ML SYR CENTRAL ONE (08:45)
[2016-07-17] MEDS: PANTOPRAZOLE SODIUM 40 MG VIAL IV PUSH SCH (09:00)
[2016-07-17] MEDS: NICOTINE 21 MG/24 HR PATCH TD SCH (09:00)
[2016-07-17] MEDS: SENNOSIDES SYRUP 8.8 MG/5 ML CUP OG SCH ×2 (09:00→19:59)
[2016-07-17] MEDS: ENOXAPARIN SODIUM 40 MG/0.4 ML SYRINGE SQ SCH (09:00)
[2016-07-17] MEDS: SODIUM CHLORIDE 0.9% FLUSH 5 ML FLUSH FLUSH SCH ×2 (09:00→20:00)
[2016-07-17] MEDS: DOCUSATE SODIUM 100 MG/10 ML UDC OG SCH ×2 (09:00→20:00)
[2016-07-17] MEDS: ARTIFICIAL TEARS OPTH OINT 3.5 APPLIC/3.5 GM TUBO EACH EYE SCH ×2 (09:00→19:56)
[2016-07-17] MEDS: THIAMINE HCL 100 MG TAB PO SCH (09:00)
[2016-07-17] MEDS: CEFEPIME INJ 2,000 MG in SODIUM CHLORIDE 0.9% INJ 100 ML IV SCH ×2 (10:00→22:02)
--- NOTE | 2016-07-17 10:17 | HHI.NPPN ---
Subjective General Problems: Anemia, Edema Renal Failure: Acute Interval History Creatinine is better. Excellent urine output. Remains intubated/unresponsive. Also has significant output from rectal bag. (Chiquita Sher) Review of Systems General General Remarks unable to obtain due to intubation/sedation (Chiquita Sher) Objective Data Data 07/16/16 07/17/16 19:00 07:00 Intake Total 2181 ml 2671 ml Output Total 2260 ml 4185 ml Balance -79 ml -1514 ml IV Total 1003 ml 1070 ml Tube Feeding 338 ml 641 ml Other 840 ml 960 ml Output Urine Total 1900 ml 3125 ml Stool Total 360 ml 1060 ml Vital Signs Date Time Temp Pulse Resp B/P Pulse Ox O2 Delivery O2 Flow Rate FiO2 07/17/16 07:22 100 50 07/17/16 06:00 85 07/17/16 04:00 60 07/17/16 04:00 98.7 81 18 125/71 98 07/17/16 04:00 81 07/17/16 03:24 100 60 07/17/16 02:00 75 07/17/16 01:03 97 60 07/17/16 00:00 98.5 86 18 141/79 96 07/17/16 00:00 86 07/17/16 00:00 60 07/16/16 22:00 92 07/16/16 21:24 97 60 07/16/16 20:00 98.1 93 18 159/84 92 07/16/16 20:00 89 07/16/16 20:00 60 07/16/16 18:00 90 07/16/16 16:00 60 07/16/16 16:00 98.5 90 18 162/78 91 07/16/16 16:00 90 07/16/16 15:27 93 60 07/16/16 14:00 92 07/16/16 12:00 107 07/16/16 12:00 60 07/16/16 12:00 98.3 107 18 171/85 95 Arterial Line 07/16/16 11:31 92 60 (Chiquita Sher) -: 07/17/16 0440 07/17/16 0440 Microbiology 07/16/16 Gram Stain - Final, Resulted 07/16/16 Sputum Culture, Resulted Pending Imaging Last 72 hours Impressions Chest X-Ray 07/17/16 0600 Signed Impressions: Service Date/Time: Sunday, July 17, 2016 02:34 - CONCLUSION: Worsening consolidation and volume loss on the left. Patel Sanchez MD Chest X-Ray 07/16/16 0000 Signed Impressions: Service Date/Time: Saturday, July 16, 2016 02:47 - CONCLUSION: No significant change has occurred. Andi Parar MD Chest X-Ray 07/15/16 0000 Signed Impressions: Service Date/Time: Friday, July 15, 2016 07:05 - CONCLUSION: 1. Improved aeration of the left upper lung compared to the prior examination. 2. Mild infiltrate right upper lung. Elgin Levin MD Tubes & Lines: Khan Tubes & Lines Comment NG tube, A line , rectal tube Drip Comment fentanyl, propofol (Chiquita Sher B. [employer]) Physical Exam General Appearance: Well Developed Appearance Remarks sedated/on vent (Chiquita Sher B. [employer]) Eyes Eye Exam: Pupils Equal (Tino Sheron B. [employer]) Ears & Nose Ears & Nose Remarks periorbital and facial edema but improving (Chiquita Sher B. [employer]) Throat Throat Remarks bleeding in mouth/lips, nares (Chiquita Sher B. [employer]) Neck Neck Exam: Neck Supple (Tino Sheron B. [employer]) Pulmonary Resp Exam: Crackles, Rhonchi, Decreased Bases Resp Remarks right lung diminished lung sounds, no wheezing, bronchial left lung sounds with scattered rales (Chiquita Sher B. [employer]) Cardiology CV Exam: Regular, Normal Sinus Rhythm, Good Perfusion (Chiquita Sher B. [employer]) Gastrointestinal/Abdomen GI Exam: Soft, Non-Tender, Bowel Sounds Present, Positive Bowel Movement GI Remarks liquid stool (Chiquita Sher B. [employer]) Musculoskeletal MS Exam: Joints Intact, Normal Tone (Chiquita Sher B. [employer]) Integumentary Skin Exam: Warm, Dry Skin Remarks healing skin tears (Chiquita Sher B. [employer]) Extremeties Extremities Exam: Pedal Pulses Palpable, Moderate Edema, Pitting Edema, Dependent Edema (NikkyChiquita krishna) Neurologic Neuro Exam: Unresponsive, Sedated (Chiquita Sher) VTE Prophylaxis Device: SCDs (Chiquita Sher) Assessment/Plan Discussed Condition With: Daughter Assessment Summary: JASON/Acute Renal Failure, Fluid/Volume Overload Electrolyte Assessment: Hypernatremia Problem List: (1) Acute renal failure Plan: His creatinine was 1.13 on 07/08 he became septic around that time with BP 70/30s, started on pressors JASON due to decreased renal perfusion (sepsis), ATN. AIN is another possibility. Excellent diuresis, he is non oliguric, continue Diuril creatinine is better today K elevated yesterday, rechecked it has improved monitor fluid volume status, avoid IVF and attempt to double concentrate all fluids. daily renal panel avoid nephrotoxins (2) Sepsis Plan: due to legionella, ARDS WBC trending down, he is afebrile, recent blood cultures are negative he is on Zithromax, Cefepime, Levaquin, and Flagyl monitor clinically, chest xray appears worse ID following. (3) Hypernatremia Plan: worse today, continue Diuril with free water through tube feeding monitor serum sodium (4) Hyperkalemia Plan: Repeat K 5.2, avoid medical treatment unless > 5.5 recheck K at 1500 today (5) Left flank pain Plan: with non obstructing stone s/p previous bilateral ureteral stent placement, may need lithotripsy and stent removal in future urology has evaluated (Chiquita Sher) Plan patient was seen and examined. Renal function has improved. No need for Kayexalate for hyperkalemia. TF changed. Continue Diuril. Hypernatremia has improved. Bronchoscopy is planned for today. (Harvey Handley MD) Chiquita Sher Jul 17, 2016 10:17 Harvey Handley MD Jul 17, 2016 11:44
--- NOTE | 2016-07-17 10:32 | HHI.FPPN ---
Subjective Remarks Pt seen and examined this morning. Patient's daughter present at bedside, she has no concerns or questions at this time. No acute events overnight. AFVSS, pt sedated but arousable. FiO2 50%, PEEP 10. Pt to have bronchoscopy later this morning due to most recent chest x-ray showing worsening pulmonary consolidation. (Nadine Aly MD R2) Objective Vitals Vital Signs Date Time Temp Pulse Resp B/P Pulse Ox O2 Delivery O2 Flow Rate FiO2 07/17/16 07:22 100 50 07/17/16 06:00 85 07/17/16 04:00 60 07/17/16 04:00 98.7 81 18 125/71 98 07/17/16 04:00 81 07/17/16 03:24 100 60 07/17/16 02:00 75 07/17/16 01:03 97 60 07/17/16 00:00 98.5 86 18 141/79 96 07/17/16 00:00 86 07/17/16 00:00 60 07/16/16 22:00 92 07/16/16 21:24 97 60 07/16/16 20:00 98.1 93 18 159/84 92 07/16/16 20:00 89 07/16/16 20:00 60 07/16/16 18:00 90 07/16/16 16:00 60 07/16/16 16:00 98.5 90 18 162/78 91 07/16/16 16:00 90 07/16/16 15:27 93 60 07/16/16 14:00 92 07/16/16 12:00 107 07/16/16 12:00 60 07/16/16 12:00 98.3 107 18 171/85 95 Arterial Line 07/16/16 11:31 92 60 I/O 07/16/16 07/16/16 07/16/16 07/17/16 07/17/16 07/17/16 07:00 15:00 23:00 07:00 15:00 23:00 Intake Total 1536 ml 2181 ml 1195 ml 1476 ml Output Total 1700 ml 2260 ml 2535 ml 1650 ml Balance -164 ml -79 ml -1340 ml -174 ml IV Total 520 ml 1003 ml 506 ml 564 ml Tube Feeding 316 ml 338 ml 329 ml 312 ml Other 700 ml 840 ml 360 ml 600 ml Output Urine Total 1300 ml 1900 ml 1775 ml 1350 ml Stool Total 400 ml 360 ml 760 ml 300 ml (Nadine Aly MD R2) Result Diagram: 07/17/1643907/17/16439 Objective Remarks GEN: Well-developed, well-nourished patient. Sedated and intubated on mech vent , supine position. CV: Regular rate and rhythm without obvious murmurs or rubs. LUNGS: Coarse breath sounds bilaterally but with good air movement. No wheezes or crackles. ABD: Distended but soft. : good urine output in [place] NEURO/PSYCH: Sedated, arousable (Nadine Aly MD R2) Line: Central Venous Catheter Side: Left Location: Subclavian (Nadine Aly MD R2) A/P Assessment and Plan 55 year old male with h/o HTN, renal calculi, s/p bilateral ureteral stent placements presented due to bilateral flank pain more significant on the left x 3 days, admitted for left-sided pneumonia, sepsis, possible UTI. Critical care was consulted on 07/08 due to acute worsening of symptoms associated with respiratory distress. Neuro: Sedated due to intubation, acute metabolic encephalopathy -On Versed, Fentanyl, and propofol for sedation. -Daily sedation vacation Pulm: Left legionella pneumonia, severe ARDS, respiratory distress, COPD, suspicious adenopathy in the mediastinum Pulmonary consulted: appreciate recommendations * Anticipate bronchoscopy later this morning -Currently on PEEP of 10, FiO2 of 60%, RR 18, TV 600 Imaging: * CXR 07/17: Worsening consolidation and volume loss on the left * CXR 07/16: No significant change * CXR 07/15: Improved aeration of the left upper lobe compared to prior examination. Mild infiltrate right upper lobe. * CXR 07/09: Persistent severe diffuse left lung air space consolidation with likely left pleural effusion. Stable subtle airspace consolidation/opacity the in the right midlung * Chest CT: Consolidative changes in the left upper lobe. There is suspicious adenopathy in the mediastinum. This may be more than an inflammatory process Medications: * Albuterol and Duonebs * Solu-Medrol, 40mg Q12 Cardiac: HLD, HTN -ACS negative -Echo 07/10: Mild to moderate LVH, normal systolic function, ejection fraction estimated to be 60%. No regional wall motion abnormalities. Mild mitral valve regurgitation. Medications: * Amlodipine 10 mg * Hydralazine 50mg PO q8 and PRN * Metoprolol 50 mg q8 * Atorvastatin 80 mg * Labetalol 20 mg PRN : S/P bilateral ureteral stents, JASON -Creatinine continues to downtrend to 2.24 today. Good UOP Urology consulted: Appreciate recommendations * Once clinical picture improves, may remove stents versus attempted ureteroscopy and laser lithotripsy * Will continue to follow Nephrology consulted: appreciate recommendations * JASON likely due to decreased renal perfusion * Minimize IVF. Double concentrate all fluids. Monitor fluid following status. * bump in Cr may have been due to aggressive diuresis GI: -On tube feeds- Glucerna -Metoclopramide schedule q8 -Protonix 40mg IV daily for GI prophylaxis ID: Legionella pneumonia, leukocytosis, septic shock, -Leukocytosis improving, still receiving steroids -Afebrile since 07/09 -Legionella antigen positive in urine -1 of 2 blood culture on 07/07 positive for staph S/P coagulase-negative, likely due to contamination -Repeat blood cultures, sputum cultures, urine cx NGTD -Urine eosinophils: Negative -Follow repeat Urine and sputum culture 07/16 ID consulted: Appreciate recommendations * Cefepime 07/11- * Flagyl 07/11- * Azithromycin 07/08- * Levaquin 07/10- Discontinued ABX: * Zyvox 07/09-07/11 * Zosyn 07/07-07/11 * Vancomycin 07/07-07/09, discontinued due to concern for drug fever and allergic interstitial nephritis Endo: SSI with Accu-Chek DVT Prophylaxis - Lovenox Discharge Planning Timetable unknown. Pending respiratory improvement. sanjuanita Wilkins wdw Dr. Antonio (Nadine Aly MD R2) Attending Attestation Pt. case discussed with resident physicians I have read the above note and agree with the assessment/plan as discussed with me I was involved in all medical decision making for this patient Elgin Antonio MD (Elgin Antonio MD) Problem List: (1) Legionella pneumonia Status: Acute (2) Acute respiratory failure with hypoxia Status: Acute (3) Acute renal failure Status: Acute (4) Sepsis Status: Acute (5) COPD (chronic obstructive pulmonary disease) Status: Acute (Nadine Aly MD R2) Nadine Aly MD R2 Jul 17, 2016 10:32 Elgin Antonio MD Jul 17, 2016 18:58
[2016-07-17] MEDS: AZITHROMYCIN INJ 500 MG in SODIUM CHLOR 0.9% 250 ML INJ 250 ML IV SCH (11:00)
[2016-07-17] MEDS ORDERED: CHLOROTHIAZIDE SOD 500 MG VIAL IV ONE ×2 (11:15→12:00)
[2016-07-17] MEDS ORDERED: MIDAZOLAM HCL 5 MG/ML VIAL (1 ML) ONE (12:48)
[2016-07-17] MEDS ORDERED: ETOMIDATE 40 MG/20 ML VIAL ONE (12:57)
--- NOTE | 2016-07-17 12:58 | HHI.IDPN ---
Subjective Subjective Remarks Mr. Ambrocio is a 55-year-old male with past medical history significant for renal calculi status post bilateral ureteral stent placements as well as hypertension who presented to the emergency department to bilateral flank pain for the past 3 days. He also had shortness of breath and chest discomfort on admission. UA with some pyuria. UC negative. CT A/P stent ok, no hydro. ID following for sepsis, pneumonia, legionella antigen positive, possible legionellosis with secondary bacterial infection. Delayed entry patient seen at ~ 10:30 am Notes reviewed Afebrile BP OK Intubated, awake, did not follow Good UO. CXR left side worse. Plan for bronchoscopy. Antibiotics Azithro IV Levaquin IV Cefepime IV Flagyl oral Lines Line sites with no e/o infection Past Medical History reviewed. 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 Vital Signs Date Time Temp Pulse Resp B/P Pulse Ox O2 Delivery O2 Flow Rate FiO2 07/17/16 11:32 96 50 07/17/16 10:00 86 07/17/16 08:00 87 07/17/16 08:00 98.9 75 21 127/75 96 07/17/16 08:00 60 07/17/16 07:22 100 50 07/17/16 06:00 85 07/17/16 04:00 60 07/17/16 04:00 98.7 81 18 125/71 98 07/17/16 04:00 81 07/17/16 03:24 100 60 07/17/16 02:00 75 07/17/16 01:03 97 60 07/17/16 00:00 98.5 86 18 141/79 96 07/17/16 00:00 86 07/17/16 00:00 60 07/16/16 22:00 92 07/16/16 21:24 97 60 07/16/16 20:00 98.1 93 18 159/84 92 07/16/16 20:00 89 07/16/16 20:00 60 1/29/17 18:00 90 07/16/16 16:00 60 07/16/16 16:00 98.5 90 18 162/78 91 07/16/16 16:00 90 07/16/16 15:27 93 60 07/16/16 14:00 92 07/16/16 07/16/16 07/17/16 15:00 23:00 07:00 Intake Total 2181 ml 1195 ml 1476 ml Output Total 2260 ml 2535 ml 1650 ml Balance -79 ml -1340 ml -174 ml IV Total 1003 ml 506 ml 564 ml Tube Feeding 338 ml 329 ml 312 ml Other 840 ml 360 ml 600 ml Output Urine Total 1900 ml 1775 ml 1350 ml Stool Total 360 ml 760 ml 300 ml . Laboratory Tests Test 07/16/16 07/17/16 03:45 04:40 White Blood Count 18.4 TH/MM3 16.5 TH/MM3 Red Blood Count 3.15 MIL/MM3 3.07 MIL/MM3 Hemoglobin 10.3 GM/DL 10.1 GM/DL Hematocrit 30.7 % 29.5 % Mean Corpuscular Volume 97.4 FL 96.0 FL Mean Corpuscular Hemoglobin 32.9 PG 33.0 PG Mean Corpuscular Hemoglobin 33.7 % 34.3 % Concent Red Cell Distribution Width 14.7 % 14.5 % Platelet Count 353 TH/MM3 341 TH/MM3 Mean Platelet Volume 8.7 FL 8.6 FL Neutrophils (%) (Auto) 87.8 % 85.7 % Lymphocytes (%) (Auto) 4.9 % 5.6 % Monocytes (%) (Auto) 6.0 % 8.5 % Eosinophils (%) (Auto) 1.2 % 0.1 % Basophils (%) (Auto) 0.1 % 0.1 % Neutrophils # (Auto) 16.2 TH/MM3 14.1 TH/MM3 Lymphocytes # (Auto) 0.9 TH/MM3 0.9 TH/MM3 Monocytes # (Auto) 1.1 TH/MM3 1.4 TH/MM3 Eosinophils # (Auto) 0.2 TH/MM3 0.0 TH/MM3 Basophils # (Auto) 0.0 TH/MM3 0.0 TH/MM3 CBC Comment AUTO DIFF AUTO DIFF Differential Total Cells 100 100 Counted Neutrophils % (Manual) 92 % 79 % Lymphocytes % 1 % 8 % Monocytes % 5 % 8 % Neutrophils # (Manual) 17.3 TH/MM3 13.9 TH/MM3 Metamyelocytes 2 % 1 % Differential Comment FINAL DIFF FINAL DIFF MANUAL MANUAL Platelet Estimate HIGH NORMAL Platelet Morphology Comment NORMAL NORMAL Red Cell Morphology Comment NORMAL NORMAL Band Neutrophils % 3 % Promyelocytes 1 % Laboratory Tests Test 07/16/16 07/16/16 07/17/16 03:45 16:00 04:40 Sodium Level 144 MEQ/L 146 MEQ/L Potassium Level 5.6 MEQ/L 4.9 MEQ/L 5.2 MEQ/L Chloride Level 109 MEQ/L 109 MEQ/L Carbon Dioxide Level 28.1 MEQ/L 30.3 MEQ/L Anion Gap 7 MEQ/L 7 MEQ/L Blood Urea Nitrogen 100 MG/DL 92 MG/DL Creatinine 2.48 MG/DL 2.24 MG/DL Estimat Glomerular Filtration 27 ML/MIN 30 ML/MIN Rate Random Glucose 159 MG/DL 156 MG/DL Calcium Level 8.7 MG/DL 9.1 MG/DL Total Bilirubin 0.3 MG/DL 0.3 MG/DL Aspartate Amino Transf 70 U/L 58 U/L (AST/SGOT) Alanine Aminotransferase 79 U/L 72 U/L (ALT/SGPT) Alkaline Phosphatase 91 U/L 80 U/L Total Protein 6.2 GM/DL 6.0 GM/DL Albumin 1.9 GM/DL 2.0 GM/DL Phosphorus Level 4.4 MG/DL Magnesium Level 2.5 MG/DL Microbiology Date/Time Procedure Status Source Growth 07/16/16 09:25 Urine Culture - Preliminary Resulted Urine Clean Catch NO GROWTH IN 24 HOURS. 07/16/16 10:40 Gram Stain - Final Resulted Sputum Endotracheal 07/16/16 10:40 Sputum Culture Resulted Sputum Endotracheal Pending Imaging Chest X-Ray 07/16/16 0000 Signed Impressions: Service Date/Time: Saturday, July 16, 2016 02:47 - CONCLUSION: No significant change has occurred. Andi Parra MD Chest X-Ray 07/15/16 0000 Signed Impressions: Service Date/Time: Friday, July 15, 2016 07:05 - CONCLUSION: 1. Improved aeration of the left upper lung compared to the prior examination. 2. Mild infiltrate right upper lung. Elgin Levin MD Chest X-Ray 07/15/16 0000 Signed Impressions: Service Date/Time: Friday, July 15, 2016 07:05 - CONCLUSION: 1. Improved aeration of the left upper lung compared to the prior examination. 2. Mild infiltrate right upper lung. Elgin Levin MD Soft Tissue Ultrasound 07/12/16 0000 Signed Impressions: Service Date/Time: Tuesday, July 12, 2016 19:25 - CONCLUSION: Well- defined heterogeneous mass which is nonspecific but likely represents a sebaceous cyst. Alexandro De La O MD Abdomen X-Ray 07/12/16 0000 Signed Impressions: Service Date/Time: Tuesday, July 12, 2016 16:59 - CONCLUSION: Nonspecific, benign abdomen appearance. Patel Torres MD Abdomen/Pelvis CT 07/07/16 1110 Signed Impressions: Service Date/Time: Thursday, July 07, 2016 11:31 - CONCLUSION: 1. Renal stones and stents in good position as described above. Yosvany Fuentes MD FACR Chest CT 07/07/16 0000 Signed Impressions: Service Date/Time: Thursday, July 07, 2016 16:09 - CONCLUSION: 1. Consolidative changes in the left upper lobe. There is suspicious adenopathy in the mediastinum. This may be more than an inflammatory process. 2. Bronchoscopy may be the easiest way to make a diagnosis of a neoplastic process. Yosvany Fuentes MD FACR Last Impressions Chest X-Ray 07/09/16 0000 Signed Impressions: Service Date/Time: Saturday, July 09, 2016 10:44 - CONCLUSION: Left subclavian central line tip is in the superior aspect of the SVC. No pneumothorax is visualized. Otherwise, stable exam. Patel Palmer MD Abdomen/Pelvis CT 07/07/16 1110 Signed Impressions: Service Date/Time: Thursday, July 07, 2016 11:31 - CONCLUSION: 1. Renal stones and stents in good position as described above. Yosvany Fuentes MD FACR Chest CT 07/07/16 0000 Signed Impressions: Service Date/Time: Thursday, July 07, 2016 16:09 - CONCLUSION: 1. Consolidative changes in the left upper lobe. There is suspicious adenopathy in the mediastinum. This may be more than an inflammatory process. 2. Bronchoscopy may be the easiest way to make a diagnosis of a neoplastic process. Yosvany Fuentes MD FACR Physical Exam GENERAL: Obese. Well nourished. On the vent., NAD SKIN: No rashes. Cool and dry. HEENT: [place] conjunctiva, no icterus, orally intubated. CARDIOVASCULAR: HS audible. No murmur appreciated. RESPIRATORY: Breath sounds diminished bilaterally posteriorly. GASTROINTESTINAL: soft, NT MUSCULOSKELETAL: Edema hands and feet NEUROLOGICAL: Sedated. Psych could not be assessed IV line sites with no evidence of infection. Assessment & Plan Remarks Severe sepsis present on admission(criteria explained in history of present illness) Pneumonia present on admission (community acquired, atypical, possible component of healthcare associated pneumonia) Likely Legionella Pneumonia with ARDS Bilateral ureteral stents. Acute renal failure present on admission likely sepsis, AIN, ATN. Acute metabolic encephalopathy: likely secondary to sepsis Leukocytosis, persistent. Recommendations: Source still appears to be pulmonary. Continue Azithromycin IV (will likely need 3 weeks or more) Continue Levaquin IV (will likely need 3 weeks or more) Continue Cefepime IV Continue Flagyl oral (aspiration risk) Repeat C/S Monitor progress Follow CBC d/w Brenda Miranda MD Jul 17, 2016 12:58
[2016-07-17] MEDS ORDERED: MIDAZOLAM HCL 5 MG/5 ML VIAL IV PUSH ONE (13:00)
[2016-07-17] MEDS ORDERED: ROCURONIUM INJ 100 MG/10 ML VIAL IV ONE (13:00)
--- NOTE | 2016-07-17 13:18 | PD.PROCEDR ---
Procedure Note Procedure DATE: 07/17/2016 Fiberoptic bronchoscopy: INDICATION: Left upper lobe collapse on chest x-ray CONSENT Informed consent for procedure was obtained. DESCRIPTION OF THE PROCEDURE The patient was placed in supine position. Ventilator sent to 100% FiO2. Patient was sedated using propofol drip at 50 mcg/kg per minute with #220 mg IV pulses, fentanyl drip at 250 g an hour. Pushed 50 g of fentanyl, 10 mg of Versed. The patient received 50 mg rocuronium IV after adequate sedation was achieved. The fiberoptic bronchoscopy placed through the 7.5 ET tube. Airways were quickly examined. The trachea, farooq, right upper middle and lower lobes were essentially clear of secretions. A few frothy secretions were suctioned. Mucosa was normal. The left mainstem bronchus contained thick whitish sputum along with the upper and lower lobe bronchi which were suctioned copiously with approximately 100 cc of sterile saline. Samples are sent from the left lower lobe. Little suction trauma was directly visualized. The scope was removed without competition. The patient tolerated procedure maintaining good oxygen saturations between 99% throughout the procedure and was stable. ESTIMATED BLOOD LOSS: Minimal COMPLICATIONS: No apparent complications. STAT chest x-ray pending at time of dictation Layton Wilkins MD Jul 17, 2016 13:18
--- NOTE | 2016-07-17 13:21 | HHI.CCPN ---
Subjective Remarks/Hospital Course The patient is a 55-year-old male with a past medical history of hypertension, renal calculi, status post bilateral ureteral stent placement in April, . He presented to [facility] ED with a three-day history of bilateral flank pain associated with fever and severe body aches. Just prior to admission, the patient had gross hematuria per his daughter and had decreased p.o. intake. The patient denied any shortness of breath or chest pain. Due to his abdominal pain, a CT scan of the abdomen and pelvis was obtained which showed renal stones and stent in place. An initial chest x-ray in the ED showed extensive airspace disease throughout the left upper lobe characteristic of pneumonia. He subsequently underwent a CT scan of the chest which showed consolidative changes in the left upper lobe along with suspicious adenopathy in the mediastinum. His initial creatinine level was 1.6 and the patient was placed on broad-spectrum antibiotics in addition to IV fluids. His laboratory data from today showed improvement of his renal function with a creatinine of 1.30 and lactic acid level measured at 1.0. [facility] was called for respiratory distress and the patient was a nonrebreather mask and [place] [facility] When seen in the ICU he was tachypneic, tachycardic and had a temperature of 103. The patient was subsequently intubated by myself and placed on full mechanical ventilation. A chest x-ray post intubation showed severe diffuse left lung airspace consolidation and a new mild consolation versus atelectasis in the right midlung zone. His nasal washing on arrival negative for influenza, and blood cultures and urine culture from yesterday showed no growth to date. The patient had a temperature of 102.8 earlier today. 07/09 Patient is sedated with versed, Fentanyl and intubated. Now on PRVC with RR 20, TV 550, IT:1, PEEP:15 and FIO2 100%. Afebrile. His Legionella urinary AG is positive. Renal function worse today with Cr 1.86 from 1.30 07/10: Patient remains very critical. Placed on Prone therapy yesterday for worsening respiratory status and severe hypoxia. Worsening renal function- creatinine increased from 1.8-2.8 today, urology following, will consult nephrology. Remains on 4 mics per minute of Levophed, urine output adequate 1.9 L in 24 hours. Currently on broad-spectrum antibiotics per ID on Zosyn and azithromycin Zyvox. I have added Levaquin for double coverage for Legionella 07/11: Remains intubated sedated. FiO2 at 50%. Chest x-ray shows bilaterally improving aeration. We'll reduce PEEP to 12. Urine output is adequate but creatinine has increased to 3. 07/12: Patient remains on prone therapy, remains critically ill but slowly his improving oxygenation. Currently on 10 of PEEP and 50% oxygen. Urine output is 1.7 L in 24 hours, increase in BUN to 79 creatinine is 3.2. We'll start weaning and starting today 07/13: Remains critically ill, but showing continued signs of improvement. UO >4L , Cr improved from 3.2 to 2.8. On weaning doses of Flolan. Maintaining oxygen saturation above 90% on 45% FiO2. WBC count is trending down. Will discontinue prone therapy today 07/14 Patient is off Rotoprone bed on ACV with RR 18, TV 600, PEEP: 10 and FIO2 50%. Sedated with Diprivan/Fentanyl and Versed. Afebrile.Renal function worse today with Cr: 3.17 today from 2.79 with UO 3600ml in 24 hrs. 07/15 Patient remains sedated and intubated. Afebrile. Now on ACV with RR 18, TV 600< PEEP:10 and FIO2 increased 60%. 07/16: Tmax 99.1. Tolerating tube feeding. Positive BM. Arousable on the ventilator. Subjective 07/17: Currently afebrile. Worsening chest x-ray today. Patient received fiberoptic bronchoscopy which essentially cleared secretions from left lingula/ lower lobe. Arousable and does follow commands. Objective Vital Signs Date Time Temp Pulse Resp B/P Pulse Ox O2 Delivery O2 Flow Rate FiO2 07/17/16 11:32 96 50 07/17/16 10:00 86 07/17/16 08:00 98.9 21 127/75 Intake and Output 07/16/16 07/16/16 07/17/16 08:00 16:00 00:00 Intake Total 1536 ml 2181 ml 1195 ml Output Total 1700 ml 2260 ml 2535 ml Balance -164 ml -79 ml -1340 ml Result Diagram: 07/17/1643907/17/16 0440 Other Results Microbiology Date/Time Procedure Status Source Growth 07/16/16 10:40 Gram Stain - Final Resulted Sputum Endotracheal 07/16/16 10:40 Sputum Culture - Preliminary Resulted Sputum Endotracheal HEAVY GROWTH NORMAL RESPIRATORY CLYDE... 07/16/16 09:25 Urine Culture - Preliminary Resulted Urine Clean Catch NO GROWTH IN 24 HOURS. Imaging Last Impressions Chest X-Ray 07/17/16 0600 Signed Impressions: Service Date/Time: Sunday, July 17, 2016 02:34 - CONCLUSION: Worsening consolidation and volume loss on the left. Patel Sanchez MD Soft Tissue Ultrasound 07/12/16 0000 Signed Impressions: Service Date/Time: Tuesday, July 12, 2016 19:25 - CONCLUSION: Well- defined heterogeneous mass which is nonspecific but likely represents a sebaceous cyst. Alexandro De La O MD Abdomen X-Ray 07/12/16 0000 Signed Impressions: Service Date/Time: Tuesday, July 12, 2016 16:59 - CONCLUSION: Nonspecific, benign abdomen appearance. Patel Torres MD Abdomen/Pelvis CT 07/07/16 1110 Signed Impressions: Service Date/Time: Thursday, July 07, 2016 11:31 - CONCLUSION: 1. Renal stones and stents in good position as described above. Yosvany Fuentes MD FACR Chest CT 07/07/16 0000 Signed Impressions: Service Date/Time: Thursday, July 07, 2016 16:09 - CONCLUSION: 1. Consolidative changes in the left upper lobe. There is suspicious adenopathy in the mediastinum. This may be more than an inflammatory process. 2. Bronchoscopy may be the easiest way to make a diagnosis of a neoplastic process. Yosvany Fuentes MD FACR Objective Remarks GENERAL: Patient is 55 yo critically ill intubated and sedated. SKIN: Warm and dry. No rashes. No skin breakdown HEAD: Normocephalic. EYES: No injection or drainage. NECK: Supple, trachea midline. Orally intubated CARDIOVASCULAR: Regular rate and rhythm S1, S2 no S4. Currently without murmurs , gallops, or rubs. RESPIRATORY: Breath sounds equal bilaterally with few coarse BS appreciated throughout the left lung alba GASTROINTESTINAL: Abdomen soft, non-tender, nondistended. MUSCULOSKELETAL: No independent peripheral edema. NEURO: Arousable on the ventilator. Follows commands. Urinary Catheter: Yes Assessment to: Continue Khan insert reason: Prolonged Immobilization Vascular Central Line Catheter: Yes Assessment to: Continue Date of Insertion: Jul 09, 2016 Line: Central Venous Catheter Side: Left Location: Subclavian A/P Assessment and Plan Plan Neuro/Psych: Acute toxic metabolic encephalopathy secondary to likely Legionella pneumonia -On Fentanyl at 250 g per hour and Diprivan infusion at 50 mcg/kg per minute for sedation analgesia while intubated. off Nimbex- discontinued 07/13 -Continue with thiamine 100 mg daily. Continue close neuro monitoring -Daily sedation vacation when appropriate. Pulm: Acute hypoxemic respiratory failure secondary to pneumonia/community acquired ARDS ACV 18/600/10/60 Ventilator bundle Bronchodilator therapy every 6 hours and as needed -off Prone therapy for severe ARDS initiated 07/09/16. Discontinued 07/13/16 Solumederol 40mg q12, Pulm is following-Dr. Jaimes Chest x-ray revealed persistent left lobar pneumonia. Status post fiberoptic bronchoscopy 07/17. See report. Sample sent from left lower lobe CV: Hypertension History dyslipidemia -Monitor HR and BP keep MAP>65mmHg. Lactic acid level measured at 1.4 -2D echo 07/10/16-EF 60%, moderate LVH -On Hydralazine 50mg Q8, Norvasc 10mg daily, Metoprolol 50mg Q8 - On Lipitor 80 mg by mouth daily for dyslipidemia Home medication atorvastatin 80 mg daily for dyslipidemia. Home medication Norvasc 10 milligrams daily for hypertension. /renal: Urinary tract infection History of renal calculi with bilateral ureteral stent placement in April -Nephrology Dr. Handley following for worsening renal function. -Off Bumex. -Urology service consulted for hx flank pain and renal calculi with ureteral stent placement-CT abdomen pelvis showed stents in good position Plan for a stent removal/ureteroscopy with possible lithotripsy once patient is medically stable -Acute kidney failure could be related to severe sepsis and hypotension -Monitor renal function, Is and Os and electrolyte replacement as needed. -Follow up on CMP today, excellent urine output -On Free water 300ml Q4, monitor Na level. GI: -On tube feeds- Nepro1.5@45ml/hr, Protonix 40mg IV daily for GI prophylaxis -Bowel regimen with Colace and senna. -Continue Reglan ID: Likely Legionella pneumonia -Continue with ABX per ID Continue Azithromycin IV, Levaquin IV, Cefepime 2 gm IV q24hrs and Flagyl oral - 07/16 - sputum - heavy growth - Blood cultures 2 - 07/09 - no growth - Blood Cultures 2 - 07/08 - no growth --07/08 Legionella urinary antigen positive. -07/07 BC : [facility]PC 06/21 bottles-coag neg staph, probable contaminant - 07/07 urine no growth- Sputum - 07/07 no growth Gram stain sent from bronchial cultures today for left lower lobe 07/17 Endo: Hyperglycemia/steroid-induced -SSI with Accu-Chek q.6 hours for glycemic control Heme: Leukocytosis -Monitor CBC. GI Protein calorie malnutrition/moderate Gastroesophageal reflux disease Switch to Nepro today by nephrology. Protonix for GI prophylaxis. On Dexilant 60 mg by mouth daily at home. Colace/Senokot for bowel regimen. Check C. difficile FEN Hyperkalemia Recheck level. Proph: -GI prophylaxis with Protonix 40 mg daily and DVT prophylaxis with SCDs and Lovenox subcu. Lines: -Peripheral IV, L subclavian central line 07/09/16 Follow up on labs Critical Care: The total critical care time was 35 minutes. Time to perform other separately billable procedures was not included in the critical care time. Layton Wilkins MD Jul 17, 2016 13:21
--- NOTE | 2016-07-17 14:48 | RADRPT ---
EXAM DATE/TIME: 07/17/2016 13:36 [facility] COMPARISON: CHEST SINGLE AP, July 17, 2016, 2:34. INDICATIONS: Post bronchoscopy. MEDICAL HISTORY: Hypertension. Chronic obstructive pulmonary disease. SURGICAL HISTORY: None. ENCOUNTER: Initial ACUITY: 1 week PAIN SCORE: 10/10 LOCATION: Bilateral chest FINDINGS: ET tube, nasogastric tube, central venous catheter are in good position. There is better aeration of the left lung following bronchoscopy. The right lung remains clear. Heart is enlarged. Pulmonary vascularity is normal. CONCLUSION: Better aeration on the left following bronchoscopy. Yosvany Fuentes MD FACR on July 17, 2016 at 14:41 Board Certified Radiologist. This report was verified electronically.
[2016-07-17 14:50] LABS: BRONCHOALVEOLAR LAVAGE RBC ND /MM3; BRONCHOALVEOLAR LAVAGE WBC ND /MM3; LAVAGE TOTAL WBC COUNT ND MILLION (4.7-7.1)
[2016-07-17] MEDS ORDERED: MIDAZOLAM HCL 5 MG/ML VIAL (1 ML) IV SCH (16:00)
[2016-07-17] MEDS: ATORVASTATIN 80 MG TAB PO SCH (20:00)
[2016-07-17] MEDS: REMOVE OLD NICODERM (NICOTINE) PATCH TD SCH (20:00)
[2016-07-17] MEDS ORDERED: CALCIUM GLUCONATE 10% 1 GM/10 ML VIAL IV ONE (21:30)
[2016-07-17 23:46] LABS: POTASSIUM 5.7 MEQ/L (3.5-5.1)
[2016-07-18] VITALS (19 sets, daily range): BP systolic 109–155; BP diastolic 58–80; PULSE 79–100; RESP 14–18; TEMP 98.2–99.3; O2SAT 92–98
[2016-07-18] MEDS ORDERED: FUROSEMIDE 40 MG/4 ML VIAL IV PUSH ONE
[2016-07-18] MEDS ORDERED: SODIUM POLYSTYRENE SULFONATE SUSP 15 GM/60 ML CUP PO SCH
[2016-07-18] MEDS ORDERED: SODIUM CHLOR 0.9% 1000 ML INJ 1,000 ML IV ONE
[2016-07-18] MEDS: hydrALAZINE HCL 50 MG TAB PO SCH ×3 (00:32→17:20)
--- NOTE | 2016-07-18 00:34 | HHI.PR ---
Addendum to Inpatient Note Addendum Reason: Additional Documentation Additional Information Notified regarding potassium level of 5.7. Initiated insulin 10 units plus dextrose, calcium gluconate. Repeat potassium level 1.5 hours later was still 5.7. Discussed case with Dr. Craven (Boda?) of [facility]. Added 40 mg lasix IV with 1 liter NS at 200 cc/hr and Kayexalate per our discussion. Patient observed at bedside in stable condition with vital signs within normal limits except mild hypertension (SBP 147). EKG obtained and showed no change from prior study, and no changes indicative of critical hyperkalemia. Potassium level to be checked in AM. dw Roel Fox MD R1 Jul 18, 2016 00:34
[2016-07-18] MEDS: PROPOFOL 1000 MG/100 ML INJ 100 ML IV SCH ×8 (01:35→21:37)
[2016-07-18] MEDS: fentaNYL DRIP 250 ML IV SCH ×3 (02:44→20:56)
[2016-07-18] MEDS: RESP: ALBUTEROL 2.5 MG/IPRATROPIUM 0.5 MG NEB (SCH) NEB ×6 (03:35→23:51)
[2016-07-18] MEDS: FREE WATER OG-TUBE SCH ×6 (04:00→20:00)
[2016-07-18] MEDS: METOCLOPRAMIDE HCL 10 MG/2 ML VIAL IV SCH ×3 (04:05→20:53)
[2016-07-18] MEDS: methylPREDNISolone SOD SUCC 40 MG/1 ML VIAL IV PUSH SCH ×2 (04:05→17:20)
[2016-07-18 05:15] LABS: AUTOMATED NEUTROPHIL # 13.4 TH/MM3 (1.8-7.7); BASOPHIL % 0.1 % (0.0-2.0); HEMATOCRIT 29.8 % (39.0-51.0); LYMPHOCYTE # 0.9 TH/MM3 (1.0-4.8); MEAN CELL VOLUME 97.6 FL (80.0-100.0); MEAN CORPUSCULAR HEMOGLOBIN 32.7 PG (27.0-34.0); MEAN CORPUSCULAR HGB CONC 33.5 % (32.0-36.0); MONO % 8.4 % (0.0-8.0); NEUT % 85.5 % (16.0-70.0); PLATELET COUNT 319 TH/MM3 (150-450); RED BLOOD COUNT 3.05 MIL/MM3 (4.50-5.90); RED CELL DISTRIBUTION WIDTH 14.5 % (11.6-17.2); WHITE BLOOD COUNT 15.7 TH/MM3 (4.0-11.0)
[2016-07-18 05:25] LABS: HEMO FLAGS AUTO DIFF
[2016-07-18 05:35] LABS: BICARBONATE 31.2 MEQ/L (21.0-32.0)
[2016-07-18] MEDS: metroNIDAZOLE 500 MG TAB PO SCH ×3 (05:38→20:56)
[2016-07-18] MEDS: INSULIN NovoLIN REGULAR SUPPLEMENTAL SCALE SQ SCH ×4 (05:38→17:51)
[2016-07-18] MEDS: METOPROLOL TARTRATE 25 MG TAB PO SCH ×3 (05:38→20:56)
--- NOTE | 2016-07-18 06:15 | RADRPT ---
EXAM DATE/TIME: 07/18/2016 04:36 [facility] COMPARISON: No previous studies available for comparison. INDICATIONS : Respiratory distress. MEDICAL HISTORY : Hypertension. Chronic obstructive pulmonary disease. SURGICAL HISTORY : None. ENCOUNTER: Subsequent ACUITY: 1 week PAIN SCORE: Non-responsive. LOCATION: Bilateral chest FINDINGS: Airspace consolidation with moderate effusion and mild volume loss again seen on the left, not signif icantly changed. On the right, there is minimal parenchymal opacity of the mid and lower lung also un changed. Mild cardiomegaly. Endotracheal tube tip about 4 cm above the farooq. Nasogastric tube coiled in the stomach. There is a left subclavian central venous catheter with tip in the superior vena cava. CONCLUSION: No significant change. Patel Sanchez MD on July 18, 2016 at 6:12 Board Certified Radiologist. This report was verified electronically.
--- NOTE | 2016-07-18 07:39 | HHI.IDPN ---
Subjective Subjective Remarks Mr. Ambrocio is a 55-year-old male with past medical history significant for renal calculi status post bilateral ureteral stent placements as well as hypertension who presented to the emergency department to bilateral flank pain for the past 3 days. He also had shortness of breath and chest discomfort on admission. UA with some pyuria. UC negative. CT A/P stent ok, no hydro. ID following for sepsis, pneumonia, legionella antigen positive, possible legionellosis with secondary bacterial infection. Overnight events reviewed with night RN. Afebrile BP OK Intubated, awake, did not follow UO ok s/p bronchoscopy with thick white secretions in left main bronchus. K was high recd kayexalate overnight. No rash Antibiotics Azithro IV Levaquin IV Cefepime IV Flagyl oral Lines Line sites with no e/o infection Past Medical History reviewed. 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 Vital Signs Date Time Temp Pulse Resp B/P Pulse Ox O2 Delivery O2 Flow Rate FiO2 07/18/16 06:00 95 07/18/16 04:09 95 60 07/18/16 04:00 60 07/18/16 04:00 79 07/18/16 04:00 98.2 79 18 116/70 96 07/18/16 02:00 79 07/18/16 00:31 95 60 07/18/16 00:00 60 07/18/16 00:00 98.8 82 18 109/58 95 07/18/16 00:00 82 07/17/16 22:00 95 60 07/17/16 22:00 91 07/17/16 20:00 88 07/17/16 20:00 98.7 87 18 147/84 94 07/17/16 20:00 60 07/17/16 19:14 94 60 07/17/16 18:12 87 07/17/16 16:00 80 07/17/16 16:00 98.7 85 21 113/62 95 07/17/16 15:46 96 60 07/17/16 12:30 99 100 1/30/17 11:32 96 50 07/17/16 10:00 86 07/17/16 08:00 87 07/17/16 08:00 98.9 75 21 127/75 96 07/17/16 08:00 60 07/17/16 07/17/16 07/18/16 15:00 23:00 07:00 Intake Total 1659 ml 1832 ml 2660 ml Output Total 1650 ml 2175 ml 3100 ml Balance 9 ml -343 ml -440 ml IV Total 774 ml 1018 ml 1587 ml Tube Feeding 285 ml 454 ml 313 ml Other 600 ml 360 ml 760 ml Output Urine Total 1400 ml 1875 ml 2450 ml Stool Total 250 ml 300 ml 650 ml . Laboratory Tests Test 07/17/16 07/18/16 04:40 04:30 White Blood Count 16.5 TH/MM3 15.7 TH/MM3 Red Blood Count 3.07 MIL/MM3 3.05 MIL/MM3 Hemoglobin 10.1 GM/DL 10.0 GM/DL Hematocrit 29.5 % 29.8 % Mean Corpuscular Volume 96.0 FL 97.6 FL Mean Corpuscular Hemoglobin 33.0 PG 32.7 PG Mean Corpuscular Hemoglobin 34.3 % 33.5 % Concent Red Cell Distribution Width 14.5 % 14.5 % Platelet Count 341 TH/MM3 319 TH/MM3 Mean Platelet Volume 8.6 FL 9.3 FL Neutrophils (%) (Auto) 85.7 % 85.5 % Lymphocytes (%) (Auto) 5.6 % 6.0 % Monocytes (%) (Auto) 8.5 % 8.4 % Eosinophils (%) (Auto) 0.1 % 0.0 % Basophils (%) (Auto) 0.1 % 0.1 % Neutrophils # (Auto) 14.1 TH/MM3 13.4 TH/MM3 Lymphocytes # (Auto) 0.9 TH/MM3 0.9 TH/MM3 Monocytes # (Auto) 1.4 TH/MM3 1.3 TH/MM3 Eosinophils # (Auto) 0.0 TH/MM3 0.0 TH/MM3 Basophils # (Auto) 0.0 TH/MM3 0.0 TH/MM3 CBC Comment AUTO DIFF AUTO DIFF Differential Total Cells 100 Counted Neutrophils % (Manual) 79 % Band Neutrophils % 3 % Lymphocytes % 8 % Monocytes % 8 % Neutrophils # (Manual) 13.9 TH/MM3 Metamyelocytes 1 % Promyelocytes 1 % Differential Comment FINAL DIFF MANUAL Platelet Estimate NORMAL Platelet Morphology Comment NORMAL Red Cell Morphology Comment NORMAL Laboratory Tests Test 07/16/16 07/17/16 07/17/16 07/17/16 16:00 04:40 20:11 23:07 Potassium Level 4.9 MEQ/L 5.2 MEQ/L 5.7 MEQ/L 5.7 MEQ/L Sodium Level 146 MEQ/L Chloride Level 109 MEQ/L Carbon Dioxide Level 30.3 MEQ/L Anion Gap 7 MEQ/L Blood Urea Nitrogen 92 MG/DL Creatinine 2.24 MG/DL Estimat Glomerular Filtration 30 ML/MIN Rate Random Glucose 156 MG/DL 229 MG/DL Calcium Level 9.1 MG/DL Phosphorus Level 4.4 MG/DL Magnesium Level 2.5 MG/DL Total Bilirubin 0.3 MG/DL Aspartate Amino Transf 58 U/L (AST/SGOT) Alanine Aminotransferase 72 U/L (ALT/SGPT) Alkaline Phosphatase 80 U/L Total Protein 6.0 GM/DL Albumin 2.0 GM/DL Test 07/18/16 04:30 Sodium Level 146 MEQ/L Potassium Level 5.0 MEQ/L Chloride Level 108 MEQ/L Carbon Dioxide Level 31.2 MEQ/L Anion Gap 7 MEQ/L Blood Urea Nitrogen 86 MG/DL Creatinine 2.11 MG/DL Estimat Glomerular Filtration 33 ML/MIN Rate Random Glucose 192 MG/DL Calcium Level 10.1 MG/DL Phosphorus Level 5.0 MG/DL Albumin 2.0 GM/DL Microbiology Date/Time Procedure Status Source Growth 07/16/16 09:25 Urine Culture - Preliminary Resulted Urine Clean Catch NO GROWTH IN 24 HOURS. 07/16/16 10:40 Gram Stain - Final Resulted Sputum Endotracheal 07/16/16 10:40 Sputum Culture - Preliminary Resulted Sputum Endotracheal HEAVY GROWTH NORMAL RESPIRATORY CLYDE... 07/17/16 13:55 Gram Stain Received Bronchial Washings Left Lower Lobe Pending 07/17/16 13:55 Bronchial Culture Received Bronchial Washings Left Lower Lobe Pending 07/17/16 13:55 Acid Fast Stain Received Bronchial Washings Left Lower Lobe Pending 07/17/16 13:55 Mycobacterial Culture Received Bronchial Washings Left Lower Lobe Pending 07/17/16 13:55 Fungal Smear Received Bronchial Washings Left Lower Lobe Pending 07/17/16 13:55 Fungal Culture Received Bronchial Washings Left Lower Lobe Pending Imaging Chest X-Ray 07/16/16 0000 Signed Impressions: Service Date/Time: Saturday, July 16, 2016 02:47 - CONCLUSION: No significant change has occurred. Andi Parra MD Chest X-Ray 07/15/16 0000 Signed Impressions: Service Date/Time: Friday, July 15, 2016 07:05 - CONCLUSION: 1. Improved aeration of the left upper lung compared to the prior examination. 2. Mild infiltrate right upper lung. Elgin Levin MD Chest X-Ray 07/15/16 0000 Signed Impressions: Service Date/Time: Friday, July 15, 2016 07:05 - CONCLUSION: 1. Improved aeration of the left upper lung compared to the prior examination. 2. Mild infiltrate right upper lung. Elgin Levin MD Soft Tissue Ultrasound 07/12/16 0000 Signed Impressions: Service Date/Time: Tuesday, July 12, 2016 19:25 - CONCLUSION: Well- defined heterogeneous mass which is nonspecific but likely represents a sebaceous cyst. Alexandro De La O MD Abdomen X-Ray 07/12/16 0000 Signed Impressions: Service Date/Time: Tuesday, July 12, 2016 16:59 - CONCLUSION: Nonspecific, benign abdomen appearance. Patel Torres MD Abdomen/Pelvis CT 07/07/16 1110 Signed Impressions: Service Date/Time: Thursday, July 07, 2016 11:31 - CONCLUSION: 1. Renal stones and stents in good position as described above. Yosvany Fuentes MD FACR Chest CT 07/07/16 0000 Signed Impressions: Service Date/Time: Thursday, July 07, 2016 16:09 - CONCLUSION: 1. Consolidative changes in the left upper lobe. There is suspicious adenopathy in the mediastinum. This may be more than an inflammatory process. 2. Bronchoscopy may be the easiest way to make a diagnosis of a neoplastic process. Yosvany Fuentes MD FACR Last Impressions Chest X-Ray 07/09/16 0000 Signed Impressions: Service Date/Time: Saturday, July 09, 2016 10:44 - CONCLUSION: Left subclavian central line tip is in the superior aspect of the SVC. No pneumothorax is visualized. Otherwise, stable exam. Patel Palmer MD Abdomen/Pelvis CT 07/07/16 1110 Signed Impressions: Service Date/Time: Thursday, July 07, 2016 11:31 - CONCLUSION: 1. Renal stones and stents in good position as described above. Yosvany Fuentes MD FACR Chest CT 07/07/16 0000 Signed Impressions: Service Date/Time: Thursday, July 07, 2016 16:09 - CONCLUSION: 1. Consolidative changes in the left upper lobe. There is suspicious adenopathy in the mediastinum. This may be more than an inflammatory process. 2. Bronchoscopy may be the easiest way to make a diagnosis of a neoplastic process. Yosvany Fuentes MD FACR Physical Exam GENERAL: Obese. Well nourished. On the vent., NAD SKIN: No rashes. Cool and dry. HEENT: [place] conjunctiva, no icterus, orally intubated. CARDIOVASCULAR: HS audible. No murmur appreciated. RESPIRATORY: Breath sounds diminished bilaterally posteriorly. GASTROINTESTINAL: soft, NT MUSCULOSKELETAL: Edema hands and feet NEUROLOGICAL: Sedated. Psych could not be assessed IV line sites with no evidence of infection. Assessment & Plan Remarks Severe sepsis present on admission(criteria explained in history of present illness) Pneumonia present on admission (community acquired, atypical, possible component of healthcare associated pneumonia) Likely Legionella Pneumonia with ARDS Bilateral ureteral stents. Acute renal failure present on admission likely sepsis, AIN, ATN. Acute metabolic encephalopathy: likely secondary to sepsis Leukocytosis, persistent. Recommendations: Source still appears to be pulmonary. Continue Azithromycin IV (will likely need 3 weeks or more) Continue Levaquin IV (will likely need 3 weeks or more) Continue Cefepime IV Continue Flagyl oral (aspiration risk) Follow cultures Follow clinically. d/w Brenda Miranda MD Jul 18, 2016 07:39
[2016-07-18 08:01] LABS: BANDS 2 % (0-6); MYELOCYTES 2 % (0-0); NEUTROPHIL # MANUAL DIFF 14.9 TH/MM3 (1.8-7.7); PLATELET ESTIMATE SMEAR NORMAL (NORMAL); PLATELET MORPHOLOGY NORMAL (NORMAL); POLYS (SEG NEUTROPHILS) 91 % (16-70); SCAN/DIFF FINAL DIFF MANUAL; WBC DIFF SAMPLE 100
--- NOTE | 2016-07-18 08:56 | HHI.FPPN ---
Subjective Remarks Pt seen and examined this morning. Overnight pt was noted to have elevated potassium of 5.7. He received 10 units insulin, 50Ml of 50% Dextrose, calcium gluconate 1Gm IV x1, Kayexalate 15Gm x1, fluid bolus. This morning potassium within normal limits at 5.0. AFVSS. FiO2 60%, PEEP 10. Chest X-ray this morning stable from yesterday. (Nadine Aly MD R2) Objective Vitals Vital Signs Date Time Temp Pulse Resp B/P Pulse Ox O2 Delivery O2 Flow Rate FiO2 07/18/16 07:52 95 55 07/18/16 06:00 95 07/18/16 04:09 95 60 07/18/16 04:00 60 07/18/16 04:00 79 07/18/16 04:00 98.2 79 18 116/70 96 07/18/16 02:00 79 07/18/16 00:31 95 60 07/18/16 00:00 60 07/18/16 00:00 98.8 82 18 109/58 95 07/18/16 00:00 82 07/17/16 22:00 95 60 07/17/16 22:00 91 07/17/16 20:00 88 07/17/16 20:00 98.7 87 18 147/84 94 07/17/16 20:00 60 07/17/16 19:14 94 60 07/17/16 18:12 87 07/17/16 16:00 80 07/17/16 16:00 98.7 85 21 113/62 95 07/17/16 15:46 96 60 07/17/16 12:30 99 100 07/17/16 11:32 96 50 07/17/16 10:00 86 I/O 07/17/16 07/17/16 07/17/16 07/18/16 07/18/16 07/18/16 07:00 15:00 23:00 07:00 15:00 23:00 Intake Total 1476 ml 1659 ml 1832 ml 2660 ml Output Total 1650 ml 1650 ml 2175 ml 3100 ml Balance -174 ml 9 ml -343 ml -440 ml IV Total 564 ml 774 ml 1018 ml 1587 ml Tube Feeding 312 ml 285 ml 454 ml 313 ml Other 600 ml 600 ml 360 ml 760 ml Output Urine Total 1350 ml 1400 ml 1875 ml 2450 ml Stool Total 300 ml 250 ml 300 ml 650 ml (Nadine Aly MD R2) Result Diagram: 07/18/16 04307/18/16429 Objective Remarks GEN: Well-developed, well-nourished patient. Sedated and intubated on mech vent , supine position. CV: Regular rate and rhythm without obvious murmurs or rubs. LUNGS: Coarse breath sounds bilaterally but with good air movement. No wheezes or crackles. ABD: Distended but soft. :Excellent urine output via [facility] NEURO/PSYCH: Sedated, arousable (Nadine Aly MD R2) Date of Insertion: Jul 09, 2016 Line: Central Venous Catheter Side: Left Location: Subclavian (Nadine Aly MD R2) A/P Assessment and Plan 55 year old male with h/o HTN, renal calculi, s/p bilateral ureteral stent placements presented due to bilateral flank pain more significant on the left x 3 days, admitted for left-sided pneumonia, sepsis, possible UTI. Critical care was consulted on 07/08 due to acute worsening of symptoms associated with respiratory distress. Neuro: Sedated due to intubation, acute metabolic encephalopathy -On Versed, Fentanyl, and propofol for sedation. -Daily sedation vacation Pulm: Left legionella pneumonia, severe ARDS, respiratory distress, COPD, suspicious adenopathy in the mediastinum Pulmonary consulted: appreciate recommendations * Bronchoscopy preformed on 07/17, samples were sent for culture -Currently on PEEP of 10, FiO2 of 50%, RR 18, TV 600 Imaging: * CXR 07/18: No significant change * CXR 07/17: Worsening consolidation and volume loss on the left * CXR 07/16: No significant change * CXR 07/15: Improved aeration of the left upper lobe compared to prior examination. Mild infiltrate right upper lobe. * CXR 07/09: Persistent severe diffuse left lung air space consolidation with likely left pleural effusion. Stable subtle airspace consolidation/opacity the in the right midlung * Chest CT: Consolidative changes in the left upper lobe. There is suspicious adenopathy in the mediastinum. This may be more than an inflammatory process Medications: * Albuterol and Duonebs * Solu-Medrol, 40mg Q12 Cardiac: HLD, HTN -ACS negative -Echo 07/10: Mild to moderate LVH, normal systolic function, ejection fraction estimated to be 60%. No regional wall motion abnormalities. Mild mitral valve regurgitation. Medications: * Amlodipine 10 mg * Hydralazine 50mg PO q8 and PRN * Metoprolol 50 mg q8 * Atorvastatin 80 mg * Labetalol 20 mg PRN : S/P bilateral ureteral stents, JASON -Creatinine continues to downtrend to 2.11 today. Good UOP Urology consulted: Appreciate recommendations * Once clinical picture improves, may remove stents versus attempted ureteroscopy and laser lithotripsy * Will continue to follow Nephrology consulted: appreciate recommendations * JASON likely due to decreased renal perfusion * Minimize IVF. Double concentrate all fluids. Monitor fluid following status. * Bump in Cr may have been due to aggressive diuresis GI: -On tube feeds- Glucerna -Metoclopramide schedule q8 -Protonix 40mg IV daily for GI prophylaxis ID: Legionella pneumonia, leukocytosis, septic shock, -Leukocytosis improving, still receiving steroids -Afebrile since 07/09 -Legionella antigen positive in urine -1 of 2 blood culture on 07/07 positive for staph S/P coagulase-negative, likely due to contamination -Repeat blood cultures, sputum cultures, urine cx NGTD -Urine eosinophils: Negative -Follow repeat Urine and sputum culture 07/16 ID consulted: Appreciate recommendations * Cefepime 07/11- * Flagyl 07/11- * Azithromycin 07/08- * Levaquin 07/10- Discontinued ABX: * Zyvox 07/09-07/11 * Zosyn 07/07-07/11 * Vancomycin 07/07-07/09, discontinued due to concern for drug fever and allergic interstitial nephritis Endo: SSI with Accu-Chek Electrolytes: Potassium within normal limits at 5.0. Will continue to monitor and replete as necessary. Pt received 10 units insulin, 50Ml of 50% Dextrose, calcium gluconate 1Gm IV x1 , Kayexalate 15Gm x1, fluid bolus. DVT Prophylaxis - Lovenox Discharge Planning Timetable unknown. Pending respiratory improvement. sanjuanita Antonio (Nadine Aly MD R2) Attending Attestation Pt. examined and case discussed with resident physicians I have read the above note and agree with the assessment/plan as discussed with me I was involved in all medical decision making for this patient Elgin Antonio MD (Elgin Antonio MD) Problem List: (1) Legionella pneumonia Status: Acute (2) Acute respiratory failure with hypoxia Status: Acute (3) Acute renal failure Status: Acute (4) Sepsis Status: Acute (5) COPD (chronic obstructive pulmonary disease) Status: Acute (Nadine Aly MD R2) Nadine Aly MD R2 Jul 18, 2016 08:56 Elgin Antonio MD Jul 18, 2016 14:54
[2016-07-18] MEDS: LEVOFLOXACIN 750 MG PREMIX INJ 150 ML IV SCH (09:02)
[2016-07-18] MEDS: ONDANSETRON HCL 4 MG/2 ML VIAL IV PUSH SCH (09:03)
[2016-07-18] MEDS: SODIUM CHLORIDE 0.9% FLUSH 5 ML FLUSH FLUSH SCH ×2 (09:04→20:54)
[2016-07-18] MEDS: ARTIFICIAL TEARS OPTH OINT 3.5 APPLIC/3.5 GM TUBO EACH EYE SCH ×2 (09:04→20:54)
[2016-07-18] MEDS: PANTOPRAZOLE SODIUM 40 MG VIAL IV PUSH SCH (09:04)
[2016-07-18] MEDS: ENOXAPARIN SODIUM 40 MG/0.4 ML SYRINGE SQ SCH (09:05)
[2016-07-18] MEDS: THIAMINE HCL 100 MG TAB PO SCH (09:05)
[2016-07-18] MEDS: NICOTINE 21 MG/24 HR PATCH TD SCH (09:05)
[2016-07-18] MEDS: SENNOSIDES SYRUP 8.8 MG/5 ML CUP OG SCH ×2 (09:06→20:54)
[2016-07-18] MEDS: DOCUSATE SODIUM 100 MG/10 ML UDC OG SCH ×2 (09:06→20:54)
--- NOTE | 2016-07-18 09:08 | HHI.NPPN ---
Subjective General Problems: Anemia, Edema Renal Failure: Acute Interval History He remains intubated/sedated. Renal function improving, diuresing well. ( Chiquita Sher) Review of Systems General General Remarks unable to obtain due to intubation/sedation (Chiquita Sher) Objective Data Data 07/17/16 07/18/16 19:00 07:00 Intake Total 1659 ml 4492 ml Output Total 1650 ml 5275 ml Balance 9 ml -783 ml IV Total 774 ml 2605 ml Tube Feeding 285 ml 767 ml Other 600 ml 1120 ml Output Urine Total 1400 ml 4325 ml Stool Total 250 ml 950 ml Vital Signs Date Time Temp Pulse Resp B/P Pulse Ox O2 Delivery O2 Flow Rate FiO2 07/18/16 07:52 95 55 07/18/16 06:00 95 07/18/16 04:09 95 60 07/18/16 04:00 60 07/18/16 04:00 79 07/18/16 04:00 98.2 79 18 116/70 96 07/18/16 02:00 79 07/18/16 00:31 95 60 07/18/16 00:00 60 07/18/16 00:00 98.8 82 18 109/58 95 07/18/16 00:00 82 07/17/16 22:00 95 60 07/17/16 22:00 91 07/17/16 20:00 88 07/17/16 20:00 98.7 87 18 147/84 94 07/17/16 20:00 60 07/17/16 19:14 94 60 07/17/16 18:12 87 07/17/16 16:00 80 07/17/16 16:00 98.7 85 21 113/62 95 07/17/16 15:46 96 60 07/17/16 12:30 99 100 07/17/16 11:32 96 50 07/17/16 10:00 86 (Chiquita Sher) -: 07/18/16 0430 07/18/16 0430 Microbiology 07/17/16 Gram Stain, Received Pending 07/17/16 Bronchial Culture, Received Pending 07/17/16 Acid Fast Stain, Received Pending 07/17/16 Mycobacterial Culture, Received Pending 07/17/16 Fungal Smear, Received Pending 07/17/16 Fungal Culture, Received Pending Imaging Last 72 hours Impressions Chest X-Ray 07/18/16 0600 Signed Impressions: Service Date/Time: Monday, July 18, 2016 04:36 - CONCLUSION: No significant change. Patel Sanchez MD Chest X-Ray 07/17/16 0600 Signed Impressions: Service Date/Time: Sunday, July 17, 2016 02:34 - CONCLUSION: Worsening consolidation and volume loss on the left. Patel Sanchez MD Chest X-Ray 07/17/16 0000 Signed Impressions: Service Date/Time: Sunday, July 17, 2016 13:36 - CONCLUSION: Better aeration on the left following bronchoscopy. Yosvany Fuentes MD FACR Chest X-Ray 07/16/16 0000 Signed Impressions: Service Date/Time: Saturday, July 16, 2016 02:47 - CONCLUSION: No significant change has occurred. Andi Parra MD Tubes & Lines: Khan Tubes & Lines Comment NG tube, A line , rectal tube Drip Comment fentanyl, propofol (Chiquita Sher B. ALLEY TENDER) Physical Exam General Appearance: Well Developed Appearance Remarks sedated/on vent (Chiquita Sher B. ALLEY TENDER) Eyes Eye Exam: Pupils Equal (Chiquita Sher B. ALLEY TENDER) Ears & Nose Ears & Nose Remarks periorbital and facial edema but improving (Tino Sheron B. ALLEY TENDER) Throat Throat Remarks bleeding in mouth/lips, nares (Tino Sheron B. ALLEY TENDER) Neck Neck Exam: Neck Supple (Chiquita Sher B. ALLEY TENDER) Pulmonary Resp Exam: Crackles, Rhonchi, Decreased Bases Resp Remarks right lung diminished lung sounds, no wheezing, bronchial left lung sounds with scattered rales (Chiquita Sher B. ALLEY TENDER) Cardiology CV Exam: Regular, Normal Sinus Rhythm, Good Perfusion (Chiquita Sher B. ALLEY TENDER) Gastrointestinal/Abdomen GI Exam: Soft, Non-Tender, Bowel Sounds Present, Positive Bowel Movement GI Remarks liquid stool (Chiquita Sher B. ALLEY TENDER) Musculoskeletal MS Exam: Joints Intact, Normal Tone (Chiquita Sher B. ALLEY TENDER) Integumentary Skin Exam: Warm, Dry Skin Remarks healing skin tears (Chiquita Sher) Extremeties Extremities Exam: Pedal Pulses Palpable, Moderate Edema, Pitting Edema, Dependent Edema (Chiquita Sher) Neurologic Neuro Exam: Unresponsive, Sedated (Chiquita Sher) VTE Prophylaxis Device: SCDs (Chiquita Sher) Assessment/Plan Discussed Condition With: Daughter Assessment Summary: JASON/Acute Renal Failure, Fluid/Volume Overload Electrolyte Assessment: Hypernatremia Problem List: (1) Acute renal failure Plan: His creatinine was 1.13 on 07/08 he became septic around that time with BP 70/30s, started on pressors JASON due to decreased renal perfusion (sepsis), ATN. AIN is also on the differential still demonstrating fluid overload, Excellent diuresis with Diuril, continue and follow urine output he is now beginning a negative fluid balance creatinine continues to improve K corrected monitor fluid volume status, avoid IVF and attempt to double concentrate all fluids. daily renal panel avoid nephrotoxins (2) Sepsis Plan: due to legionella, ARDS WBC trending down, he is afebrile, recent blood cultures are negative he is on Zithromax, Cefepime, Levaquin, and Flagyl monitor clinically, chest xray appears worse, he had bronch yesterday ID following. (3) Hypernatremia Plan: improved, continue Diuril with free water through tube feeding monitor serum sodium (4) Hyperkalemia Plan: improved, monitor for recurrence (5) Left flank pain Plan: with non obstructing stone s/p previous bilateral ureteral stent placement, may need lithotripsy and stent removal in future urology has evaluated (Chiquita Sher) Plan patient was seen and examined. Renal function continues to improve. Hyperkalemia has improved as well. Continue free water administration and Diuril. (Harvey Handley MD) Chiquita Sher Jul 18, 2016 09:08 Harvey Handley MD Jul 18, 2016 19:50
[2016-07-18] MEDS ORDERED: CHLOROTHIAZIDE SOD 500 MG VIAL IV ONE (09:15)
[2016-07-18] MEDS: CEFEPIME INJ 2,000 MG in SODIUM CHLORIDE 0.9% INJ 100 ML IV SCH ×2 (10:05→20:56)
[2016-07-18] MEDS: AZITHROMYCIN INJ 500 MG in SODIUM CHLOR 0.9% 250 ML INJ 250 ML IV SCH (10:05)
[2016-07-18] MEDS ORDERED: SODIUM POLYSTYRENE SULFONATE SUSP 15 GM/60 ML CUP PO ONE (12:15)
[2016-07-18] MEDS ORDERED: DEXTROSE 50% IN WATER 50 ML VIAL(D50) IV PUSH ONE (12:15)
[2016-07-18] MEDS ORDERED: INSULIN HUMAN REGULAR 1,000 UNITS/10 ML VIAL IV PUSH ONE (12:15)
--- NOTE | 2016-07-18 12:18 | HHI.CCPN ---
Subjective Remarks/Hospital Course The patient is a 55-year-old male with a past medical history of hypertension, renal calculi, status post bilateral ureteral stent placement in April, . He presented to [facility] ED with a three-day history of bilateral flank pain associated with fever and severe body aches. Just prior to admission, the patient had gross hematuria per his daughter and had decreased p.o. intake. The patient denied any shortness of breath or chest pain. Due to his abdominal pain, a CT scan of the abdomen and pelvis was obtained which showed renal stones and stent in place. An initial chest x-ray in the ED showed extensive airspace disease throughout the left upper lobe characteristic of pneumonia. He subsequently underwent a CT scan of the chest which showed consolidative changes in the left upper lobe along with suspicious adenopathy in the mediastinum. His initial creatinine level was 1.6 and the patient was placed on broad-spectrum antibiotics in addition to IV fluids. His laboratory data from today showed improvement of his renal function with a creatinine of 1.30 and lactic acid level measured at 1.0. [facility] was called for respiratory distress and the patient was a nonrebreather mask and transferred to [facility] When seen in the ICU he was tachypneic, tachycardic and had a temperature of 103. The patient was subsequently intubated by myself and placed on full mechanical ventilation. A chest x-ray post intubation showed severe diffuse left lung airspace consolidation and a new mild consolation versus atelectasis in the right midlung zone. His nasal washing on arrival negative for influenza, and blood cultures and urine culture from yesterday showed no growth to date. The patient had a temperature of 102.8 earlier today. 07/09 Patient is sedated with versed, Fentanyl and intubated. Now on PRVC with RR 20, TV 550, IT:1, PEEP:15 and FIO2 100%. Afebrile. His Legionella urinary AG is positive. Renal function worse today with Cr 1.86 from 1.30 07/10: Patient remains very critical. Placed on Prone therapy yesterday for worsening respiratory status and severe hypoxia. Worsening renal function- creatinine increased from 1.8-2.8 today, urology following, will consult nephrology. Remains on 4 mics per minute of Levophed, urine output adequate 1.9 L in 24 hours. Currently on broad-spectrum antibiotics per ID on Zosyn and azithromycin Zyvox. I have added Levaquin for double coverage for Legionella 07/11: Remains intubated sedated. FiO2 at 50%. Chest x-ray shows bilaterally improving aeration. We'll reduce PEEP to 12. Urine output is adequate but creatinine has increased to 3. 07/12: Patient remains on prone therapy, remains critically ill but slowly his improving oxygenation. Currently on 10 of PEEP and 50% oxygen. Urine output is 1.7 L in 24 hours, increase in BUN to 79 creatinine is 3.2. We'll start weaning and starting today 07/13: Remains critically ill, but showing continued signs of improvement. UO >4L , Cr improved from 3.2 to 2.8. On weaning doses of Flolan. Maintaining oxygen saturation above 90% on 45% FiO2. WBC count is trending down. Will discontinue prone therapy today 07/14 Patient is off Rotoprone bed on ACV with RR 18, TV 600, PEEP: 10 and FIO2 50%. Sedated with Diprivan/Fentanyl and Versed. Afebrile.Renal function worse today with Cr: 3.17 today from 2.79 with UO 3600ml in 24 hrs. 07/15 Patient remains sedated and intubated. Afebrile. Now on ACV with RR 18, TV 600< PEEP:10 and FIO2 increased 60%. 07/16: Tmax 99.1. Tolerating tube feeding. Positive BM. Arousable on the ventilator. 07/17: Currently afebrile. Worsening chest x-ray today. Patient received fiberoptic bronchoscopy which essentially cleared secretions from left lingula/ lower lobe. Arousable and does follow commands. Subjective 07/18: Afebrile. Status post bronchoscopy yesterday. Tolerating tube feeds. Positive BM. Arousable and does follow commands. Nurses nursing "slight" tremor left upper extremity occasionally. Objective Vital Signs Date Time Temp Pulse Resp B/P Pulse Ox O2 Delivery O2 Flow Rate FiO2 07/18/16 11:12 95 55 07/18/16 10:00 87 07/18/16 08:00 98.5 18 120/68 Intake and Output 07/17/16 07/17/16 07/18/16 08:00 16:00 00:00 Intake Total 1476 ml 1659 ml 1832 ml Output Total 1650 ml 1650 ml 2175 ml Balance -174 ml 9 ml -343 ml Result Diagram: 07/18/16 0430 07/18/16 0940 Other Results Microbiology Date/Time Procedure Status Source Growth 07/17/16 13:55 Gram Stain - Final Resulted Bronchial Washings Left Lower Lobe 07/17/16 13:55 Bronchial Culture Resulted Bronchial Washings Left Lower Lobe Pending 07/17/16 13:55 Fungal Smear - Final Resulted Bronchial Washings Left Lower Lobe NO FUNGAL ELEMENTS SEEN. 07/17/16 13:55 Fungal Culture Resulted Bronchial Washings Left Lower Lobe Pending 07/17/16 13:55 Acid Fast Stain - Final Resulted Bronchial Washings Left Lower Lobe NO ACID FAST BACILLI SEEN 07/17/16 13:55 Mycobacterial Culture Resulted Bronchial Washings Left Lower Lobe Pending 07/16/16 09:25 Urine Culture - Final Complete Urine Clean Catch NO GROWTH IN 48 HOURS. Imaging Last Impressions Chest X-Ray 07/18/16 0600 Signed Impressions: Service Date/Time: Monday, July 18, 2016 04:36 - CONCLUSION: No significant change. Patel Sanchez MD Soft Tissue Ultrasound 07/12/16 0000 Signed Impressions: Service Date/Time: Tuesday, July 12, 2016 19:25 - CONCLUSION: Well- defined heterogeneous mass which is nonspecific but likely represents a sebaceous cyst. Alexandro De La O MD Abdomen X-Ray 07/12/16 0000 Signed Impressions: Service Date/Time: Tuesday, July 12, 2016 16:59 - CONCLUSION: Nonspecific, benign abdomen appearance. Ptael Torres MD Abdomen/Pelvis CT 07/07/16 1110 Signed Impressions: Service Date/Time: Thursday, July 07, 2016 11:31 - CONCLUSION: 1. Renal stones and stents in good position as described above. Yosvany Fuentes MD FACR Chest CT 07/07/16 0000 Signed Impressions: Service Date/Time: Thursday, July 07, 2016 16:09 - CONCLUSION: 1. Consolidative changes in the left upper lobe. There is suspicious adenopathy in the mediastinum. This may be more than an inflammatory process. 2. Bronchoscopy may be the easiest way to make a diagnosis of a neoplastic process. Yosvany Fuentes MD FACR Objective Remarks GENERAL: Patient is 55 yo critically ill intubated and sedated. SKIN: Warm and dry. No rashes. No skin breakdown HEAD: Normocephalic. EYES: No injection or drainage. NECK: Supple, trachea midline. Orally intubated CARDIOVASCULAR: Regular rate and rhythm S1, S2 no S4. Currently without murmurs , gallops, or rubs. RESPIRATORY: Breath sounds equal bilaterally with few coarse BS appreciated throughout the left lung alba GASTROINTESTINAL: Abdomen soft, non-tender, nondistended. MUSCULOSKELETAL: No independent peripheral edema. NEURO: Arousable on the ventilator. Follows commands. Left upper extremity tremor Urinary Catheter: No Assessment to: Continue Vascular Central Line Catheter: Yes Assessment to: Continue Date of Insertion: Jul 09, 2016 Line: Central Venous Catheter Side: Left Location: Subclavian A/P Assessment and Plan Plan Neuro/Psych: Acute toxic metabolic encephalopathy secondary to likely Legionella pneumonia -On Fentanyl at 250 g per hour and Diprivan infusion at 50 mcg/kg per minute for sedation analgesia while intubated. off Nimbex- discontinued 07/13 -Continue with thiamine 100 mg daily. Continue close neuro monitoring -Daily sedation vacation when appropriate. --Check EEG with tremor. Pulm: Acute hypoxemic respiratory failure secondary to pneumonia/community acquired ARDS ACV 18/600/10/55 Ventilator bundle Bronchodilator therapy every 6 hours and as needed -off Prone therapy for severe ARDS initiated 07/09/16. Discontinued 07/13/16 Solumederol 40mg q12, Pulm is following-Dr. Jaimes Chest x-ray shows improving left-sided lobar pneumonia Status post fiberoptic bronchoscopy 07/17. See report. Sample sent from left lower lobe no growth to date CV: Hypertension History dyslipidemia -Monitor HR and BP keep MAP>65mmHg. Lactic acid level measured at 1.4 -2D echo 07/10/16-EF 60%, moderate LVH -On Hydralazine 50mg Q8, Norvasc 10mg daily, Metoprolol 50mg Q8 - On Lipitor 80 mg by mouth daily for dyslipidemia Home medication atorvastatin 80 mg daily for dyslipidemia. Home medication Norvasc 10 milligrams daily for hypertension. /renal: Urinary tract infection History of renal calculi with bilateral ureteral stent placement in April Hyperphosphatemia -Nephrology Dr. Handley following for worsening renal function. -Off Bumex. -Urology service consulted for hx flank pain and renal calculi with ureteral stent placement-CT abdomen pelvis showed stents in good position Plan for a stent removal/ureteroscopy with possible lithotripsy once patient is medically stable -Acute kidney failure could be related to severe sepsis and hypotension -Monitor renal function, Is and Os and electrolyte replacement as needed. -Follow up on CMP today, excellent urine output -On Free water 300ml Q4, monitor Na level. PhosLo 3 dosages. Recheck in a.m. GI: -On tube feeds- Nepro1.5@45ml/hr, Protonix 40mg IV daily for GI prophylaxis -Bowel regimen with Colace and senna. -Continue Reglan ID: Likely Legionella pneumonia -Continue with ABX per ID Continue Azithromycin IV, Levaquin IV, Cefepime 2 gm IV q24hrs and Flagyl oral - 07/17 - bronchus - pending - 07/16 - sputum - heavy growth - Blood cultures 2 - 07/09 - no growth - Blood Cultures 2 - 07/08 - no growth --07/08 Legionella urinary antigen positive. -07/07 BC : GPC 06/21 bottles-coag neg staph, probable contaminant - 07/07 urine no growth- Sputum - 07/07 no growth Endo: Hyperglycemia/steroid-induced -SSI with Accu-Chek q.6 hours for glycemic control Heme: Leukocytosis -Monitor CBC. GI Protein calorie malnutrition/moderate Gastroesophageal reflux disease Switch to Nepro today by nephrology. Protonix for GI prophylaxis. On Dexilant 60 mg by mouth daily at home. Colace/Senokot for bowel regimen. Check C. difficile FEN Hyperkalemia D50/insulin. Recheck. Proph: -GI prophylaxis with Protonix 40 mg daily and DVT prophylaxis with SCDs and Lovenox subcu. Lines: -Peripheral IV, L subclavian central line 07/09/16 Critical Care: The total critical care time was 35 minutes. Time to perform other separately billable procedures was not included in the critical care time. Layton Wilkins MD Jul 18, 2016 12:18
[2016-07-18] MEDS: CALCIUM ACETATE 667 MG CAP PO SCH ×2 (12:40→17:20)
[2016-07-18] MEDS: SODIUM POLYSTYRENE SULFONATE SUSP 15 GM/60 ML CUP PO SCH ×2 (12:45→20:54)
--- NOTE | 2016-07-18 13:36 | PD.PROCEDR ---
Central Line Procedure REASON FOR PROCEDURE Central venous access PROCEDURE PERFORMED Central line placement: Left IJ CVL CONSENT Informed consent for procedure was obtained. The risks and benefits of the procedure were discussed to include but limited to bleeding, clot formation, infection, and even . ANESTHESIA Local injection of 1% Lidocaine DESCRIPTION OF THE PROCEDURE The patient was placed in supine, mild Trendelenburg position. The area was exposed and cleansed with ChloraPrep, times two. Large sterile drape was used to cover the patient, with the site exposed, under sterile conditions including cap, face mask, sterile gown, and sterile gloves. On single attempt, the introducer needle was inserted with negative pressure in syringe and venous flash was obtained. The guide wire was then advanced without any restriction and the needle was removed. The dilator was used without any complications. Using Seldinger technique the triple-lumen catheter was advanced over the guide wire to a depth of 20 centimeters. The guide wire was removed. All ports were aspirated with dark venous blood return and flushed easily with sterile saline. All ports were capped. Antibiotic disc was placed around central line at puncture site. The central line was secured to the skin with two interrupted 2.0 silk sutures. The area was bandaged with sterile see-through central line bandage. RADIOLOGICAL DATA Ultrasound guidance was used to locate left internal jugular vein. Doppler/ color flow was used to confirm venous flow. COMPLICATIONS: No apparent complications ESTIMATED BLOOD LOSS: Less than 1 cc. Layton Wilkins MD Jul 18, 2016 13:36
--- NOTE | 2016-07-18 13:48 | EKG ---
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
--- NOTE | 2016-07-18 15:24 | MG ---
cc: SUJIT WYATT M.D. Lab No: [id number] Date: 07/18/2016 Age: Sex: M TECHNIQUE 17-channel EEG. DESCRIPTION The background rhythm is generally slow in the delta frequency roughly 3 Hz. Amplitude is 10-20 microvolts. No lateralizing features are identified. No epileptiform features are identified. Photic stimulation was done in a stepwise fashion with no change in the background rhythm. INTERPRETATION Abnormal study consistent with a severe encephalopathy. MD ANNABEL Guaman/YVON /3:13 PM /3:21 PM
[2016-07-18] MEDS ORDERED: SODIUM CHLORIDE 0.9% FLUSH 5 ML FLUSH IVF PRN (16:00)
--- NOTE | 2016-07-18 16:07 | RADRPT ---
EXAM DATE/TIME: 07/18/2016 15:35 [place] COMPARISON: CHEST SINGLE AP, July 18, 2016, 4:36. INDICATIONS : Central line placement. MEDICAL HISTORY : Hypertension. Chronic obstructive pulmonary disease. SURGICAL HISTORY : None. ENCOUNTER: Initial ACUITY: 1 day PAIN SCORE: Non-responsive. LOCATION: Bilateral chest FINDINGS: Support lines and tubes are in satisfactory position. A left sided internal jugular vein catheter is in place without pneumothorax with its tip in the superior vena cava. There is left lower lobe atelec tasis versus pneumonia. There has been no significant change when compared to the prior exam. CONCLUSION: 1. Uncomplicated line placement. No evidence of pneumothorax. Elmer Martinez MD on July 18, 2016 at 16:05 Board Certified Radiologist. This report was verified electronically.
[2016-07-18 16:40] LABS: AUTOMATED NEUTROPHIL # 17.1 TH/MM3 (1.8-7.7); BASOPHIL % 0.1 % (0.0-2.0); EOSINOPHIL % 0.1 % (0.0-4.0); HEMATOCRIT 29.2 % (39.0-51.0); LYMPH % 4.1 % (9.0-44.0); LYMPHOCYTE # 0.8 TH/MM3 (1.0-4.8); MEAN CELL VOLUME 98.3 FL (80.0-100.0); MEAN CORPUSCULAR HGB CONC 33.6 % (32.0-36.0); MONO % 7.1 % (0.0-8.0); NEUT % 88.6 % (16.0-70.0); PLATELET COUNT 307 TH/MM3 (150-450); RED BLOOD COUNT 2.97 MIL/MM3 (4.50-5.90); RED CELL DISTRIBUTION WIDTH 14.5 % (11.6-17.2); WHITE BLOOD COUNT 19.2 TH/MM3 (4.0-11.0)
[2016-07-18 16:43] LABS: HEMO FLAGS AUTO DIFF
[2016-07-18 17:09] LABS: BANDS 14 % (0-6); NEUTROPHIL # MANUAL DIFF 17.3 TH/MM3 (1.8-7.7); POLYS (SEG NEUTROPHILS) 76 % (16-70); WBC DIFF SAMPLE 100
[2016-07-18 17:10] LABS: PLATELET ESTIMATE SMEAR NORMAL (NORMAL); PLATELET MORPHOLOGY NORMAL (NORMAL); SCAN/DIFF FINAL DIFF MANUAL
[2016-07-18 17:12] LABS: MAGNESIUM 1.9 MG/DL (1.5-2.5)
[2016-07-18] MEDS: SODIUM CHLORIDE 0.9% FLUSH 5 ML FLUSH IVF SCH (17:21)
[2016-07-18] MEDS: ATORVASTATIN 80 MG TAB PO SCH (20:55)
[2016-07-18] MEDS: REMOVE OLD NICODERM (NICOTINE) PATCH TD SCH (20:55)
[2016-07-19] VITALS (19 sets, daily range): BP systolic 111–163; BP diastolic 63–94; PULSE 74–100; RESP 18–24; TEMP 97.8–99; O2SAT 90–99
[2016-07-19] MEDS: INSULIN NovoLIN REGULAR SUPPLEMENTAL SCALE SQ SCH ×5 (00:11→22:47)
[2016-07-19] MEDS: PROPOFOL 1000 MG/100 ML INJ 100 ML IV SCH ×7 (00:12→23:47)
[2016-07-19] MEDS: hydrALAZINE HCL 50 MG TAB PO SCH ×3 (03:07→18:15)
[2016-07-19] MEDS: FREE WATER OG-TUBE SCH ×7 (03:07→22:48)
[2016-07-19] MEDS: RESP: ALBUTEROL 2.5 MG/IPRATROPIUM 0.5 MG NEB (SCH) NEB ×5 (03:46→19:53)
[2016-07-19] MEDS: METOCLOPRAMIDE HCL 10 MG/2 ML VIAL IV SCH ×3 (05:13→21:48)
[2016-07-19] MEDS: methylPREDNISolone SOD SUCC 40 MG/1 ML VIAL IV PUSH SCH ×2 (05:13→16:19)
[2016-07-19] MEDS: metroNIDAZOLE 500 MG TAB PO SCH ×3 (05:13→21:51)
[2016-07-19] MEDS: METOPROLOL TARTRATE 25 MG TAB PO SCH ×3 (05:13→21:51)
[2016-07-19] MEDS: fentaNYL DRIP 250 ML IV SCH ×3 (05:14→23:47)
[2016-07-19 06:15] LABS: BICARBONATE 29.2 MEQ/L (21.0-32.0); POTASSIUM 4.7 MEQ/L (3.5-5.1)
--- NOTE | 2016-07-19 08:27 | HHI.FPPN ---
Subjective Remarks No acute events overnight. AFVSS. Per nurse report, pt weaned down on FiO2 from 60% to 50%, and pt had some subtle left arm shaking/tremor, which is why EEG was ordered. EEG was read as severe encephalopathy, but this finding may be due to pt's sedation. Pt unable to respond, but he opens his eyes with stimulation. Objective Vitals Vital Signs Date Time Temp Pulse Resp B/P Pulse Ox O2 Delivery O2 Flow Rate FiO2 07/19/16 07:18 93 50 07/19/16 06:00 84 07/19/16 04:00 50 07/19/16 04:00 97.8 79 18 119/70 97 07/19/16 04:00 79 07/19/16 03:30 97 50 07/19/16 02:00 74 07/19/16 00:32 94 50 07/19/16 00:00 98.0 91 24 163/94 96 07/19/16 00:00 91 07/19/16 00:00 50 07/18/16 22:02 96 50 07/18/16 22:00 89 07/18/16 20:00 99.3 90 14 155/80 92 07/18/16 20:00 90 07/18/16 20:00 50 07/18/16 19:20 94 50 07/18/16 18:00 87 07/18/16 16:21 98 50 07/18/16 16:00 98.9 85 18 114/70 97 07/18/16 16:00 50 07/18/16 16:00 85 07/18/16 14:00 85 07/18/16 12:00 50 07/18/16 12:00 99.0 100 18 115/65 98 07/18/16 12:00 100 07/18/16 11:12 95 55 07/18/16 10:00 87 I/O 07/18/16 07/18/16 07/18/16 07/19/16 07/19/16 07/19/16 07:00 15:00 23:00 07:00 15:00 23:00 Intake Total 2660 ml 2587 ml 973 ml 932 ml Output Total 3100 ml 2250 ml 1300 ml 2200 ml Balance -440 ml 337 ml -327 ml -1268 ml Intake Oral 0 ml 0 ml IV Total 1587 ml 1650 ml 508 ml 602 ml Tube Feeding 313 ml 337 ml 465 ml 330 ml Other 760 ml 600 ml Output Urine Total 2450 ml 1750 ml 1150 ml 1450 ml Stool Total 650 ml 500 ml 150 ml 750 ml Result Diagram: 07/18/16 1245 07/19/16 0430 Imaging Last Impressions Chest X-Ray 07/18/16 1554 Signed Impressions: Service Date/Time: Monday, July 18, 2016 15:35 - CONCLUSION: 1. Uncomplicated line placement. No evidence of pneumothorax. Elmer Martinez MD Soft Tissue Ultrasound 07/12/16 0000 Signed Impressions: Service Date/Time: Tuesday, July 12, 2016 19:25 - CONCLUSION: Well- defined heterogeneous mass which is nonspecific but likely represents a sebaceous cyst. Alexandro De La O MD Abdomen X-Ray 07/12/16 0000 Signed Impressions: Service Date/Time: Tuesday, July 12, 2016 16:59 - CONCLUSION: Nonspecific, benign abdomen appearance. Patel Torres MD Abdomen/Pelvis CT 07/07/16 1110 Signed Impressions: Service Date/Time: Thursday, July 07, 2016 11:31 - CONCLUSION: 1. Renal stones and stents in good position as described above. Yosvany Fuentes MD FACR Chest CT 07/07/16 0000 Signed Impressions: Service Date/Time: Thursday, July 07, 2016 16:09 - CONCLUSION: 1. Consolidative changes in the left upper lobe. There is suspicious adenopathy in the mediastinum. This may be more than an inflammatory process. 2. Bronchoscopy may be the easiest way to make a diagnosis of a neoplastic process. Yosvany Fuentes MD FACR Objective Remarks GEN: Well-developed, well-nourished patient. Sedated and intubated on [facility] vent , supine position. Pt unable to respond, but he opens his eyes with stimulation. CV: Regular rate and rhythm with grade 2 to 3/6 systolic murmur LUNGS: Clear breath sounds bilaterally with good air movement. No wheezes or crackles. Vent settings: 18 breaths per minute, breath volume of 0.6 L, peak flow increased from 60 to 65 L/m, PEEP 10 cm H2O, flow trigger 2 L/m, FiO2 decreased from 60% to 50% ABD: Soft nontender nondistended : Excellent urine output via [place]mens NEURO/PSYCH: Sedated, arousable Ext: Extremities warm and well-perfused. Date of Insertion: Jul 09, 2016 Line: Central Venous Catheter Side: Left Location: Subclavian A/P Assessment and Plan 55 year old male with h/o HTN, renal calculi, s/p bilateral ureteral stent placements presented due to bilateral flank pain more significant on the left x 3 days, admitted for left-sided pneumonia, sepsis, possible UTI. Critical care was consulted on 07/08 due to acute worsening of symptoms associated with respiratory distress. Neuro: Sedated due to intubation, acute metabolic encephalopathy -On Versed, Fentanyl, and propofol for sedation. -Daily sedation vacation Pulm: Left legionella pneumonia, severe ARDS, respiratory distress, COPD, suspicious adenopathy in the mediastinum Pulmonary consulted: appreciate recommendations * Bronchoscopy preformed on 07/17, samples were sent for culture -Currently on PEEP of 10, FiO2 of 50%, RR 18, TV 600 Imaging: * CXR 07/18: No significant change * CXR 07/17: Worsening consolidation and volume loss on the left * CXR 07/16: No significant change * CXR 07/15: Improved aeration of the left upper lobe compared to prior examination. Mild infiltrate right upper lobe. * CXR 07/09: Persistent severe diffuse left lung air space consolidation with likely left pleural effusion. Stable subtle airspace consolidation/opacity the in the right midlung * Chest CT: Consolidative changes in the left upper lobe. There is suspicious adenopathy in the mediastinum. This may be more than an inflammatory process Medications: * Albuterol and Duonebs * Solu-Medrol, 40mg Q12 Cardiac: HLD, HTN -ACS negative -Echo 07/10: Mild to moderate LVH, normal systolic function, ejection fraction estimated to be 60%. No regional wall motion abnormalities. Mild mitral valve regurgitation. Medications: * Amlodipine 10 mg * Hydralazine 50mg PO q8 and PRN * Metoprolol 50 mg q8 * Atorvastatin 80 mg * Labetalol 20 mg PRN : S/P bilateral ureteral stents, JASON -Creatinine continues to downtrend to 2.11 today. Good UOP Urology consulted: Appreciate recommendations * Once clinical picture improves, may remove stents versus attempted ureteroscopy and laser lithotripsy * Will continue to follow Nephrology consulted: appreciate recommendations * JASON likely due to decreased renal perfusion * Minimize IVF. Double concentrate all fluids. Monitor fluid following status. * Bump in Cr may have been due to aggressive diuresis GI: -On tube feeds- Glucerna -Metoclopramide schedule q8 -Protonix 40mg IV daily for GI prophylaxis ID: Legionella pneumonia, leukocytosis, septic shock, -Leukocytosis improving, still receiving steroids -Afebrile since 07/09 -Legionella antigen positive in urine -1 of 2 blood culture on 07/07 positive for staph S/P coagulase-negative, likely due to contamination -Repeat blood cultures, sputum cultures, urine cx NGTD -Urine eosinophils: Negative -Follow repeat Urine and sputum culture 07/16 ID consulted: Appreciate recommendations * Cefepime 07/11- * Flagyl 07/11- * Azithromycin 07/08- * Levaquin 07/10- Discontinued ABX: * Zyvox 07/09-07/11 * Zosyn 07/07-07/11 * Vancomycin 07/07-07/09, discontinued due to concern for drug fever and allergic interstitial nephritis Endo: SSI with Accu-Chek Electrolytes: Potassium within normal limits at 5.0. Will continue to monitor and replete as necessary. Pt received 10 units insulin, 50Ml of 50% Dextrose, calcium gluconate 1Gm IV x1 , Kayexalate 15Gm x1, fluid bolus. DVT Prophylaxis - Lovenox Discharge Planning Timetable unknown. Pending respiratory improvement. sdw Dr. Chaya Aly wdw Dr. Antonio Problem List: (1) Legionella pneumonia Status: Acute (2) Acute respiratory failure with hypoxia Status: Acute (3) Acute renal failure Status: Acute (4) Sepsis Status: Acute (5) COPD (chronic obstructive pulmonary disease) Status: Acute Alexandro García MD R1 Jul 19, 2016 08:27
[2016-07-19] MEDS: ARTIFICIAL TEARS OPTH OINT 3.5 APPLIC/3.5 GM TUBO EACH EYE SCH ×2 (08:56→21:00)
[2016-07-19] MEDS: PANTOPRAZOLE SODIUM 40 MG VIAL IV PUSH SCH (08:57)
[2016-07-19] MEDS: SODIUM CHLORIDE 0.9% FLUSH 5 ML FLUSH FLUSH SCH ×2 (08:57→21:00)
[2016-07-19] MEDS: SENNOSIDES SYRUP 8.8 MG/5 ML CUP OG SCH ×2 (08:58→21:47)
[2016-07-19] MEDS: DOCUSATE SODIUM 100 MG/10 ML UDC OG SCH ×2 (08:58→21:47)
[2016-07-19] MEDS: SODIUM CHLORIDE 0.9% FLUSH 5 ML FLUSH IVF SCH ×2 (08:58)
[2016-07-19] MEDS: ENOXAPARIN SODIUM 40 MG/0.4 ML SYRINGE SQ SCH (08:59)
[2016-07-19] MEDS: NICOTINE 21 MG/24 HR PATCH TD SCH (08:59)
[2016-07-19] MEDS: SODIUM POLYSTYRENE SULFONATE SUSP 15 GM/60 ML CUP PO SCH (08:59)
[2016-07-19] MEDS: THIAMINE HCL 100 MG TAB PO SCH (08:59)
--- NOTE | 2016-07-19 10:10 | HHI.CCPN ---
Subjective Remarks/Hospital Course The patient is a 55-year-old male with a past medical history of hypertension, renal calculi, status post bilateral ureteral stent placement in April, . He presented to [facility] ED with a three-day history of bilateral flank pain associated with fever and severe body aches. Just prior to admission, the patient had gross hematuria per his daughter and had decreased p.o. intake. The patient denied any shortness of breath or chest pain. Due to his abdominal pain, a CT scan of the abdomen and pelvis was obtained which showed renal stones and stent in place. An initial chest x-ray in the ED showed extensive airspace disease throughout the left upper lobe characteristic of pneumonia. He subsequently underwent a CT scan of the chest which showed consolidative changes in the left upper lobe along with suspicious adenopathy in the mediastinum. His initial creatinine level was 1.6 and the patient was placed on broad-spectrum antibiotics in addition to IV fluids. His laboratory data from today showed improvement of his renal function with a creatinine of 1.30 and lactic acid level measured at 1.0. [facility] was called for respiratory distress and the patient was a nonrebreather mask and transferred to [facility]. When seen in the ICU he was tachypneic, tachycardic and had a temperature of 103. The patient was subsequently intubated by myself and placed on full mechanical ventilation. A chest x-ray post intubation showed severe diffuse left lung airspace consolidation and a new mild consolation versus atelectasis in the right midlung zone. His nasal washing on arrival negative for influenza, and blood cultures and urine culture from yesterday showed no growth to date. The patient had a temperature of 102.8 earlier today. 07/09 Patient is sedated with versed, Fentanyl and intubated. Now on PRVC with RR 20, TV 550, IT:1, PEEP:15 and FIO2 100%. Afebrile. His Legionella urinary AG is positive. Renal function worse today with Cr 1.86 from 1.30 07/10: Patient remains very critical. Placed on Prone therapy yesterday for worsening respiratory status and severe hypoxia. Worsening renal function- creatinine increased from 1.8-2.8 today, urology following, will consult nephrology. Remains on 4 mics per minute of Levophed, urine output adequate 1.9 L in 24 hours. Currently on broad-spectrum antibiotics per ID on Zosyn and azithromycin Zyvox. I have added Levaquin for double coverage for Legionella 07/11: Remains intubated sedated. FiO2 at 50%. Chest x-ray shows bilaterally improving aeration. We'll reduce PEEP to 12. Urine output is adequate but creatinine has increased to 3. 07/12: Patient remains on prone therapy, remains critically ill but slowly his improving oxygenation. Currently on 10 of PEEP and 50% oxygen. Urine output is 1.7 L in 24 hours, increase in BUN to 79 creatinine is 3.2. We'll start weaning and starting today 07/13: Remains critically ill, but showing continued signs of improvement. UO >4L , Cr improved from 3.2 to 2.8. On weaning doses of Flolan. Maintaining oxygen saturation above 90% on 45% FiO2. WBC count is trending down. Will discontinue prone therapy today 07/14 Patient is off Rotoprone bed on ACV with RR 18, TV 600, PEEP: 10 and FIO2 50%. Sedated with Diprivan/Fentanyl and Versed. Afebrile.Renal function worse today with Cr: 3.17 today from 2.79 with UO 3600ml in 24 hrs. 07/15 Patient remains sedated and intubated. Afebrile. Now on ACV with RR 18, TV 600< PEEP:10 and FIO2 increased 60%. 07/16: Tmax 99.1. Tolerating tube feeding. Positive BM. Arousable on the ventilator. 07/17: Currently afebrile. Worsening chest x-ray today. Patient received fiberoptic bronchoscopy which essentially cleared secretions from left lingula/ lower lobe. Arousable and does follow commands. 07/18: Afebrile. Status post bronchoscopy yesterday. Tolerating tube feeds. Positive BM. Arousable and does follow commands. Nurses nursing "slight" tremor left upper extremity occasionally. Subjective 07/19: Objective Vital Signs Date Time Temp Pulse Resp B/P Pulse Ox O2 Delivery O2 Flow Rate FiO2 07/19/16 07:18 93 50 07/19/16 06:00 84 07/19/16 04:00 97.8 18 119/70 Intake and Output 07/18/16 07/18/16 07/19/16 08:00 16:00 00:00 Intake Total 2660 ml 2587 ml 973 ml Output Total 3100 ml 2250 ml 1300 ml Balance -440 ml 337 ml -327 ml Result Diagram: 07/18/16 1245 07/19/16 0430 Other Results Microbiology Date/Time Procedure Status Source Growth 07/17/16 13:55 Gram Stain - Final Complete Bronchial Washings Left Lower Lobe 07/17/16 13:55 Bronchial Culture - Final Complete Bronchial Washings Left Lower Lobe HEAVY GROWTH NORMAL RESPIRATORY CLYDE 07/17/16 13:55 Fungal Smear - Final Resulted Bronchial Washings Left Lower Lobe NO FUNGAL ELEMENTS SEEN. 07/17/16 13:55 Fungal Culture Resulted Bronchial Washings Left Lower Lobe Pending 07/17/16 13:55 Acid Fast Stain - Final Resulted Bronchial Washings Left Lower Lobe NO ACID FAST BACILLI SEEN 07/17/16 13:55 Mycobacterial Culture Resulted Bronchial Washings Left Lower Lobe Pending 07/16/16 09:25 Urine Culture - Final Complete Urine Clean Catch NO GROWTH IN 48 HOURS. Imaging Last Impressions Chest X-Ray 07/18/16 1554 Signed Impressions: Service Date/Time: Monday, July 18, 2016 15:35 - CONCLUSION: 1. Uncomplicated line placement. No evidence of pneumothorax. Elmer Martinez MD Soft Tissue Ultrasound 07/12/16 0000 Signed Impressions: Service Date/Time: Tuesday, July 12, 2016 19:25 - CONCLUSION: Well- defined heterogeneous mass which is nonspecific but likely represents a sebaceous cyst. Alexandro De La O MD Abdomen X-Ray 07/12/16 0000 Signed Impressions: Service Date/Time: Tuesday, July 12, 2016 16:59 - CONCLUSION: Nonspecific, benign abdomen appearance. Patel Torres MD Abdomen/Pelvis CT 07/07/16 1110 Signed Impressions: Service Date/Time: Thursday, July 07, 2016 11:31 - CONCLUSION: 1. Renal stones and stents in good position as described above. Yosvany Fuentes MD FACR Chest CT 07/07/16 0000 Signed Impressions: Service Date/Time: Thursday, July 07, 2016 16:09 - CONCLUSION: 1. Consolidative changes in the left upper lobe. There is suspicious adenopathy in the mediastinum. This may be more than an inflammatory process. 2. Bronchoscopy may be the easiest way to make a diagnosis of a neoplastic process. Yosvany Fuentes MD FACR Objective Remarks GENERAL: Patient is 55 yo critically ill intubated and sedated. SKIN: Warm and dry. No rashes. No skin breakdown HEAD: Normocephalic. EYES: No injection or drainage. NECK: Supple, trachea midline. Orally intubated. LIJ C/D/I CARDIOVASCULAR: Regular rate and rhythm S1, S2 no S4. Currently without murmurs , gallops, or rubs. RESPIRATORY: Breath sounds equal bilaterally with few coarse BS appreciated throughout the left lung alba GASTROINTESTINAL: Abdomen soft, non-tender, nondistended. MUSCULOSKELETAL: No independent peripheral edema. NEURO: Arousable on the ventilator. Follows commands. Left upper extremity tremor - movement Urinary Catheter: Yes Assessment to: Continue Khan insert reason: Prolonged Immobilization Vascular Central Line Catheter: Yes Assessment to: Continue Date of Insertion: Jul 18, 2016 Line: Central Venous Catheter Side: Left Location: Internal, Jugular A/P Assessment and Plan Plan Neuro/Psych: Acute toxic metabolic encephalopathy secondary to likely Legionella pneumonia -On Fentanyl at 250 g per hour and Diprivan infusion at 50 mcg/kg per minute for sedation analgesia while intubated. off Nimbex- discontinued 07/13 -Continue with thiamine 100 mg daily. Continue close neuro monitoring -Daily sedation vacation when appropriate. --Check EEG - encephalopathy - no epileptiform activity. Pulm: Acute hypoxemic respiratory failure secondary to pneumonia/community acquired ARDS ACV 18/600/10/55 Ventilator bundle Bronchodilator therapy every 6 hours and as needed -off Prone therapy for severe ARDS initiated 07/09/16. Discontinued 07/13/16 Solumederol 40mg q12, Pulm is following-Dr. Jaimes Chest x-ray shows improving left-sided lobar pneumonia Status post fiberoptic bronchoscopy 07/17. See report. Sample sent from left lower lobe no growth to date Nicotine patch 21 mg/day CV: Hypertension History dyslipidemia -Monitor HR and BP keep MAP>65mmHg. Lactic acid level measured at 1.4 -2D echo 07/10/16-EF 60%, moderate LVH -On Hydralazine 50mg Q8, Norvasc 10mg daily, Metoprolol 50mg Q8 - On Lipitor 80 mg by mouth daily for dyslipidemia Home medication atorvastatin 80 mg daily for dyslipidemia. Home medication Norvasc 10 milligrams daily for hypertension. /renal: Urinary tract infection History of renal calculi with bilateral ureteral stent placement in April Hyperphosphatemia -Nephrology Dr. Handley following for worsening renal function. -Off Bumex. -Urology service consulted for hx flank pain and renal calculi with ureteral stent placement-CT abdomen pelvis showed stents in good position Plan for a stent removal/ureteroscopy with possible lithotripsy once patient is medically stable -Acute kidney failure could be related to severe sepsis and hypotension -Monitor renal function, Is and Os and electrolyte replacement as needed. -On Free water 300ml Q4, monitor Na level. GI: -On tube feeds- Nepro1.5@45ml/hr, Protonix 40mg IV daily for GI prophylaxis -Bowel regimen with Colace and senna. -Continue Reglan ID: Likely Legionella pneumonia -Continue with ABX per ID Continue Azithromycin IV, Levaquin IV, Cefepime 2 gm IV q24hrs and Flagyl oral - 07/17 - bronchus - ngtd - 07/16 - sputum - heavy growth - Blood cultures 2 - 07/09 - no growth - Blood Cultures 2 - 07/08 - no growth --07/08 Legionella urinary antigen positive. -07/07 BC : GPC 06/21 bottles-coag neg staph, probable contaminant - 07/07 urine no growth- Sputum - 07/07 no growth Endo: Hyperglycemia/steroid-induced -SSI with Accu-Chek q.6 hours for glycemic control Heme: Leukocytosis -Monitor CBC. GI Protein calorie malnutrition/moderate Gastroesophageal reflux disease Switch to Nepro today by nephrology. Protonix for GI prophylaxis. On Dexilant 60 mg by mouth daily at home. Colace/Senokot for bowel regimen. FEN Replace lytes as indicated Proph: -GI prophylaxis with Protonix 40 mg daily and DVT prophylaxis with SCDs and Lovenox subcu. Lines: -Peripheral IV, L IJ CVL 07/18 - present Critical Care: The total critical care time was 35 minutes. Time to perform other separately billable procedures was not included in the critical care time. Layton Wilkins MD Jul 19, 2016 10:10 billable procedures was not included in the critical care time. Layton Wilkins MD Jul 19, 2016 10:10
--- NOTE | 2016-07-19 11:25 | HHI.NPPN ---
Subjective General Problems: Anemia, Edema Renal Failure: Acute Interval History Remains intubated, opens eyes and blinks on command. Renal function is better. Still with fluid overload. (Chiquita Sher) Review of Systems General General Remarks unable to obtain due to intubation/sedation (Chiquita Sher) Objective Data Data 07/18/16 07/19/16 19:00 07:00 Intake Total 2587 ml 1905 ml Output Total 2250 ml 3500 ml Balance 337 ml -1595 ml Intake Oral 0 ml IV Total 1650 ml 1110 ml Tube Feeding 337 ml 795 ml Other 600 ml Output Urine Total 1750 ml 2600 ml Stool Total 500 ml 900 ml Vital Signs Date Time Temp Pulse Resp B/P Pulse Ox O2 Delivery O2 Flow Rate FiO2 07/19/16 11:00 95 50 07/19/16 10:00 83 07/19/16 08:00 83 07/19/16 08:00 98.1 83 18 130/73 92 07/19/16 08:00 50 07/19/16 07:18 93 50 07/19/16 06:00 84 07/19/16 04:00 50 07/19/16 04:00 97.8 79 18 119/70 97 07/19/16 04:00 79 07/19/16 03:30 97 50 07/19/16 02:00 74 07/19/16 00:32 94 50 07/19/16 00:00 98.0 91 24 163/94 96 07/19/16 00:00 91 07/19/16 00:00 50 07/18/16 22:02 96 50 07/18/16 22:00 89 07/18/16 20:00 99.3 90 14 155/80 92 07/18/16 20:00 90 07/18/16 20:00 50 07/18/16 19:20 94 50 07/18/16 18:00 87 07/18/16 16:21 98 50 07/18/16 16:00 98.9 85 18 114/70 97 07/18/16 16:00 50 07/18/16 16:00 85 07/18/16 14:00 85 07/18/16 12:00 50 07/18/16 12:00 99.0 100 18 115/65 98 07/18/16 12:00 100 (Chiquita Sher) -: 07/18/16 1245 07/19/16 0430 Imaging Last 48 hours Impressions Chest X-Ray 07/18/16 1554 Signed Impressions: Service Date/Time: Monday, July 18, 2016 15:35 - CONCLUSION: 1. Uncomplicated line placement. No evidence of pneumothorax. Elmer Martinez MD Chest X-Ray 07/18/16 0600 Signed Impressions: Service Date/Time: Monday, July 18, 2016 04:36 - CONCLUSION: No significant change. Patel Sanchez MD Tubes & Lines: Khan Tubes & Lines Comment NG tube, A line , rectal tube Drip Comment fentanyl, propofol (Chiquita Sher) Physical Exam General Appearance: Well Developed Appearance Remarks sedated/on vent (Chiquita Sher) Eyes Eye Exam: Pupils Equal (Chiquita Sher) Ears & Nose Ears & Nose Remarks periorbital and facial edema but improving (Chiquita Sher) Throat Throat Remarks bleeding in mouth/lips, nares (Chiquita Sher) Neck Neck Exam: Neck Supple (Chiquita Sher) Pulmonary Resp Exam: Crackles, Rhonchi, Decreased Bases Resp Remarks right lung diminished lung sounds, no wheezing, bronchial left lung sounds with scattered rales (Chiquita Sher) Cardiology CV Exam: Regular, Normal Sinus Rhythm, Good Perfusion (Chiquita Sher) Gastrointestinal/Abdomen GI Exam: Soft, Non-Tender, Bowel Sounds Present, Positive Bowel Movement GI Remarks liquid stool (Chiquita Sher) Musculoskeletal MS Exam: Joints Intact, Normal Tone (Chiquita Sher) Integumentary Skin Exam: Warm, Dry Skin Remarks healing skin tears (Chiquita Sher) Extremeties Extremities Exam: Pedal Pulses Palpable, Moderate Edema, Pitting Edema, Dependent Edema (Chiquita Sher) Neurologic Neuro Exam: Moving All Extremities, Unresponsive, Sedated Neuro Remarks opens eyes on command (Chiquita Sher) VTE Prophylaxis Device: SCDs (Chiquita Sher) Assessment/Plan Discussed Condition With: Daughter Assessment Summary: JASON/Acute Renal Failure, Fluid/Volume Overload Electrolyte Assessment: Hypernatremia Problem List: (1) Acute renal failure Plan: His creatinine was 1.13 on 07/08 he became septic around that time with BP 70/30s, started on pressors JASON due to decreased renal perfusion (sepsis), ATN. AIN is a possiblity renal function is improving still demonstrating fluid overload, fluid balance is negative but weight significantly up compared to preadmission Excellent diuresis with Diuril, continue and follow urine output K corrected monitor fluid volume status, avoid IVF and attempt to double concentrate all fluids. daily renal panel avoid nephrotoxins (2) Sepsis Plan: due to legionella, ARDS leukocytosis, he is afebrile, recent blood cultures are negative he is on Zithromax, Cefepime, Levaquin, and Flagyl monitor clinically, serial chest xrays, he had bronch, awaiting pathology ID following. vent settings: 18/600/50/10 (3) Hypernatremia Plan: corrected, continue free water through tube feeding give another dose of Diuril monitor serum sodium (4) Hyperkalemia Plan: improved, monitor for recurrence (5) Left flank pain Plan: with non obstructing stone s/p previous bilateral ureteral stent placement, may need lithotripsy and stent removal in future urology has evaluated (Chiquita Sher) Plan patient was seen and examined Agree with above assessment and plan. Renal function is improving. We will continue Diuril. (Harvey Handley MD) Chiquita Sher Jul 19, 2016 11:25 Harvey Handley MD Jul 20, 2016 10:53
[2016-07-19] MEDS: AZITHROMYCIN INJ 500 MG in SODIUM CHLOR 0.9% 250 ML INJ 250 ML IV SCH (11:32)
[2016-07-19] MEDS: CEFEPIME INJ 2,000 MG in SODIUM CHLORIDE 0.9% INJ 100 ML IV SCH ×2 (11:32→21:46)
--- NOTE | 2016-07-19 12:49 | HHI.IDPN ---
Subjective Subjective Remarks Mr. Ambrocio is a 55-year-old male with past medical history significant for renal calculi status post bilateral ureteral stent placements as well as hypertension who presented to the emergency department to bilateral flank pain for the past 3 days. He also had shortness of breath and chest discomfort on admission. UA with some pyuria. UC negative. CT A/P stent ok, no hydro. ID following for sepsis, pneumonia, legionella antigen positive, possible legionellosis with secondary bacterial infection. Overnight events reviewed with night RN. Afebrile BP OK Intubated, awake, Follows simple commands Was tearful but when reassured was ok. UO ok No rash Antibiotics Azithro IV Levaquin IV Cefepime IV Flagyl oral Lines Line sites with no e/o infection Past Medical History reviewed. 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 Vital Signs Date Time Temp Pulse Resp B/P Pulse Ox O2 Delivery O2 Flow Rate FiO2 07/19/16 12:00 50 07/19/16 12:00 98.7 90 18 115/66 99 07/19/16 12:00 90 07/19/16 11:00 95 50 07/19/16 10:00 83 07/19/16 08:00 83 07/19/16 08:00 98.1 83 18 130/73 92 07/19/16 08:00 50 07/19/16 07:18 93 50 07/19/16 06:00 84 07/19/16 04:00 50 07/19/16 04:00 97.8 79 18 119/70 97 07/19/16 04:00 79 07/19/16 03:30 97 50 07/19/16 02:00 74 07/19/16 00:32 94 50 07/19/16 00:00 98.0 91 24 163/94 96 07/19/16 00:00 91 07/19/16 00:00 50 07/18/16 22:02 96 50 07/18/16 22:00 89 07/18/16 20:00 99.3 90 14 155/80 92 1/31/17 20:00 90 07/18/16 20:00 50 07/18/16 19:20 94 50 07/18/16 18:00 87 07/18/16 16:21 98 50 07/18/16 16:00 98.9 85 18 114/70 97 07/18/16 16:00 50 07/18/16 16:00 85 07/18/16 14:00 85 07/18/16 07/18/16 07/19/16 15:00 23:00 07:00 Intake Total 2587 ml 973 ml 932 ml Output Total 2250 ml 1300 ml 2200 ml Balance 337 ml -327 ml -1268 ml Intake Oral 0 ml 0 ml IV Total 1650 ml 508 ml 602 ml Tube Feeding 337 ml 465 ml 330 ml Other 600 ml Output Urine Total 1750 ml 1150 ml 1450 ml Stool Total 500 ml 150 ml 750 ml . Laboratory Tests Test 07/18/16 07/18/16 04:30 12:45 White Blood Count 15.7 TH/MM3 19.2 TH/MM3 Red Blood Count 3.05 MIL/MM3 2.97 MIL/MM3 Hemoglobin 10.0 GM/DL 9.8 GM/DL Hematocrit 29.8 % 29.2 % Mean Corpuscular Volume 97.6 FL 98.3 FL Mean Corpuscular Hemoglobin 32.7 PG 33.0 PG Mean Corpuscular Hemoglobin 33.5 % 33.6 % Concent Red Cell Distribution Width 14.5 % 14.5 % Platelet Count 319 TH/MM3 307 TH/MM3 Mean Platelet Volume 9.3 FL 9.5 FL Neutrophils (%) (Auto) 85.5 % 88.6 % Lymphocytes (%) (Auto) 6.0 % 4.1 % Monocytes (%) (Auto) 8.4 % 7.1 % Eosinophils (%) (Auto) 0.0 % 0.1 % Basophils (%) (Auto) 0.1 % 0.1 % Neutrophils # (Auto) 13.4 TH/MM3 17.1 TH/MM3 Lymphocytes # (Auto) 0.9 TH/MM3 0.8 TH/MM3 Monocytes # (Auto) 1.3 TH/MM3 1.4 TH/MM3 Eosinophils # (Auto) 0.0 TH/MM3 0.0 TH/MM3 Basophils # (Auto) 0.0 TH/MM3 0.0 TH/MM3 CBC Comment AUTO DIFF AUTO DIFF Differential Total Cells 100 100 Counted Neutrophils % (Manual) 91 % 76 % Band Neutrophils % 2 % 14 % Lymphocytes % 3 % 4 % Monocytes % 2 % 6 % Neutrophils # (Manual) 14.9 TH/MM3 17.3 TH/MM3 Myelocytes 2 % Differential Comment FINAL DIFF FINAL DIFF MANUAL MANUAL Platelet Estimate NORMAL NORMAL Platelet Morphology Comment NORMAL NORMAL Laboratory Tests Test 07/17/16 07/17/16 07/18/16 07/18/16 20:11 23:07 04:30 09:40 Potassium Level 5.7 MEQ/L 5.7 MEQ/L 5.0 MEQ/L 5.3 MEQ/L Random Glucose 229 MG/DL 192 MG/DL Sodium Level 146 MEQ/L Chloride Level 108 MEQ/L Carbon Dioxide Level 31.2 MEQ/L Anion Gap 7 MEQ/L Blood Urea Nitrogen 86 MG/DL Creatinine 2.11 MG/DL Estimat Glomerular Filtration 33 ML/MIN Rate Calcium Level 10.1 MG/DL Phosphorus Level 5.0 MG/DL Albumin 2.0 GM/DL Test 07/18/16 07/19/16 12:45 04:30 Phosphorus Level 4.7 MG/DL Magnesium Level 1.9 MG/DL Sodium Level 145 MEQ/L Potassium Level 4.7 MEQ/L Chloride Level 105 MEQ/L Carbon Dioxide Level 29.2 MEQ/L Anion Gap 11 MEQ/L Blood Urea Nitrogen 72 MG/DL Creatinine 1.84 MG/DL Estimat Glomerular Filtration 38 ML/MIN Rate Random Glucose 156 MG/DL Calcium Level 9.2 MG/DL Microbiology Date/Time Procedure Status Source Growth 07/17/16 13:55 Gram Stain - Final Complete Bronchial Washings Left Lower Lobe 07/17/16 13:55 Bronchial Culture - Final Complete Bronchial Washings Left Lower Lobe HEAVY GROWTH NORMAL RESPIRATORY CLYDE 07/17/16 13:55 Acid Fast Stain - Final Resulted Bronchial Washings Left Lower Lobe NO ACID FAST BACILLI SEEN 07/17/16 13:55 Mycobacterial Culture Resulted Bronchial Washings Left Lower Lobe Pending 07/17/16 13:55 Fungal Smear - Final Resulted Bronchial Washings Left Lower Lobe NO FUNGAL ELEMENTS SEEN. 07/17/16 13:55 Fungal Culture Resulted Bronchial Washings Left Lower Lobe Pending Imaging Chest X-Ray 07/16/16 0000 Signed Impressions: Service Date/Time: Saturday, July 16, 2016 02:47 - CONCLUSION: No significant change has occurred. Andi Parra MD Chest X-Ray 07/15/16 0000 Signed Impressions: Service Date/Time: Friday, July 15, 2016 07:05 - CONCLUSION: 1. Improved aeration of the left upper lung compared to the prior examination. 2. Mild infiltrate right upper lung. Elgin Levin MD Chest X-Ray 07/15/16 0000 Signed Impressions: Service Date/Time: Friday, July 15, 2016 07:05 - CONCLUSION: 1. Improved aeration of the left upper lung compared to the prior examination. 2. Mild infiltrate right upper lung. Elgin Levin MD Soft Tissue Ultrasound 07/12/16 0000 Signed Impressions: Service Date/Time: Tuesday, July 12, 2016 19:25 - CONCLUSION: Well- defined heterogeneous mass which is nonspecific but likely represents a sebaceous cyst. Alexandro De La O MD Abdomen X-Ray 07/12/16 0000 Signed Impressions: Service Date/Time: Tuesday, July 12, 2016 16:59 - CONCLUSION: Nonspecific, benign abdomen appearance. Patel Torres MD Abdomen/Pelvis CT 07/07/16 1110 Signed Impressions: Service Date/Time: Thursday, July 07, 2016 11:31 - CONCLUSION: 1. Renal stones and stents in good position as described above. Yosvany Fuentes MD FACR Chest CT 07/07/16 0000 Signed Impressions: Service Date/Time: Thursday, July 07, 2016 16:09 - CONCLUSION: 1. Consolidative changes in the left upper lobe. There is suspicious adenopathy in the mediastinum. This may be more than an inflammatory process. 2. Bronchoscopy may be the easiest way to make a diagnosis of a neoplastic process. Yosvany Fuentes MD FACR Last Impressions Chest X-Ray 07/09/16 0000 Signed Impressions: Service Date/Time: Saturday, July 09, 2016 10:44 - CONCLUSION: Left subclavian central line tip is in the superior aspect of the SVC. No pneumothorax is visualized. Otherwise, stable exam. Patel Palmer MD Abdomen/Pelvis CT 07/07/16 1110 Signed Impressions: Service Date/Time: Thursday, July 07, 2016 11:31 - CONCLUSION: 1. Renal stones and stents in good position as described above. Yosvany Fuentes MD FACR Chest CT 07/07/16 0000 Signed Impressions: Service Date/Time: Thursday, July 07, 2016 16:09 - CONCLUSION: 1. Consolidative changes in the left upper lobe. There is suspicious adenopathy in the mediastinum. This may be more than an inflammatory process. 2. Bronchoscopy may be the easiest way to make a diagnosis of a neoplastic process. Yosvany Fuentes MD FACR Physical Exam GENERAL: Obese. Well nourished. On the vent., NAD SKIN: No rashes. Cool and dry. HEENT: [place] conjunctiva, no icterus, orally intubated. CARDIOVASCULAR: HS audible. No murmur appreciated. RESPIRATORY: Breath sounds diminished bilaterally posteriorly. GASTROINTESTINAL: soft, NT MUSCULOSKELETAL: Edema hands and feet NEUROLOGICAL: Sedated. Psych could not be assessed IV line sites with no evidence of infection. Assessment & Plan Remarks Severe sepsis present on admission(criteria explained in history of present illness) Pneumonia present on admission (community acquired, atypical, possible component of healthcare associated pneumonia) Likely Legionella Pneumonia with ARDS Bilateral ureteral stents. Acute renal failure present on admission likely sepsis, AIN, ATN. Acute metabolic encephalopathy: likely secondary to sepsis Leukocytosis, persistent. Recommendations: Source still appears to be pulmonary. Continue Azithromycin IV (will likely need 3 weeks or more) Continue Levaquin IV (will likely need 3 weeks or more) Continue Cefepime IV Continue Flagyl oral (aspiration risk) Follow cultures Follow clinically. d/w RN d/w pts daughter Brenda Walsh MD Jul 19, 2016 12:49
[2016-07-19 12:53] LABS: MEAN CELL VOLUME 96.7 FL (80.0-100.0); PLATELET COUNT 302 TH/MM3 (150-450); RED CELL DISTRIBUTION WIDTH 14.6 % (11.6-17.2); REVIEW FLAG FINAL
[2016-07-19] MEDS ORDERED: CHLOROTHIAZIDE SOD 500 MG VIAL IV ONE (13:00)
[2016-07-19 13:16] LABS: MAGNESIUM 1.6 MG/DL (1.5-2.5)
[2016-07-19] MEDS: REMOVE OLD NICODERM (NICOTINE) PATCH TD SCH (21:00)
[2016-07-19] MEDS: ATORVASTATIN 80 MG TAB PO SCH (21:50)
[2016-07-20] VITALS (19 sets, daily range): BP systolic 105–144; BP diastolic 58–74; PULSE 80–104; RESP 18; TEMP 98.5–99.1; O2SAT 94–100
[2016-07-20] MEDS: RESP: ALBUTEROL 2.5 MG/IPRATROPIUM 0.5 MG NEB (SCH) NEB ×7 (00:02→23:44)
[2016-07-20] MEDS: PROPOFOL 1000 MG/100 ML INJ 100 ML IV SCH ×6 (01:55→21:08)
[2016-07-20] MEDS: hydrALAZINE HCL 50 MG TAB PO SCH ×3 (02:00→18:00)
[2016-07-20] MEDS: FREE WATER OG-TUBE SCH ×5 (04:00→20:00)
[2016-07-20] MEDS: METOCLOPRAMIDE HCL 10 MG/2 ML VIAL IV SCH ×3 (04:15→20:51)
[2016-07-20] MEDS: methylPREDNISolone SOD SUCC 40 MG/1 ML VIAL IV PUSH SCH ×2 (05:00→18:27)
--- NOTE | 2016-07-20 05:26 | RADRPT ---
EXAM DATE/TIME: 07/20/2016 02:45 [facility] COMPARISON: CHEST SINGLE AP, July 18, 2016, 15:35. INDICATIONS : Shortness of breath, possible pulmonary disease. MEDICAL HISTORY : Hypertension. Chronic obstructive pulmonary disease. SURGICAL HISTORY : None. ENCOUNTER: Subsequent ACUITY: 2 weeks PAIN SCORE: Non-responsive. LOCATION: Bilateral chest FINDINGS: Bilateral opacities with left volume loss again seen, not significantly changed. Small left pleural e ffusion suspected. No pneumothorax seen. Heart size stable, mildly enlarged. Endotracheal tube tip is about 4 cm above the farooq. There is a nasogastric tube coursing into the s tomach. Left internal jugular central venous catheter are again seen, tip in the superior vena cava. There is a left subclavian catheter present previously that has been removed. CONCLUSION: 1. Left subclavian central venous catheter out. Other lines and tubes unchanged. The 2. No significant change left greater than right bilateral airspace opacities and small left pleural effusion. Patel Sanchez MD on July 20, 2016 at 5:22 Board Certified Radiologist. This report was verified electronically.
[2016-07-20 05:50] LABS: AUTOMATED NEUTROPHIL # 13.2 TH/MM3 (1.8-7.7); BASOPHIL % 0.3 % (0.0-2.0); HEMATOCRIT 26.7 % (39.0-51.0); HEMO FLAGS DIFF FINAL; LYMPH % 9.1 % (9.0-44.0); LYMPHOCYTE # 1.4 TH/MM3 (1.0-4.8); MEAN CELL VOLUME 97.2 FL (80.0-100.0); MEAN CORPUSCULAR HEMOGLOBIN 32.1 PG (27.0-34.0); MEAN CORPUSCULAR HGB CONC 33.1 % (32.0-36.0); MONO % 7.6 % (0.0-8.0); PLATELET COUNT 274 TH/MM3 (150-450); RED BLOOD COUNT 2.75 MIL/MM3 (4.50-5.90); RED CELL DISTRIBUTION WIDTH 14.1 % (11.6-17.2); WHITE BLOOD COUNT 15.9 TH/MM3 (4.0-11.0)
[2016-07-20] MEDS: METOPROLOL TARTRATE 25 MG TAB PO SCH ×3 (06:00→20:50)
[2016-07-20] MEDS: metroNIDAZOLE 500 MG TAB PO SCH ×3 (06:00→20:50)
[2016-07-20 06:10] LABS: ANION GAP 10 MEQ/L (5-15); AST (GOT) 27 U/L (15-37); BLOOD UREA NITROGEN 68 MG/DL (7-18); CHLORIDE 105 MEQ/L (98-107); GLOMERULAR FILTRATION RATE 41 ML/MIN (>89); MAGNESIUM 1.7 MG/DL (1.5-2.5); POTASSIUM 4.3 MEQ/L (3.5-5.1); SODIUM (NA) 143 MEQ/L (136-145)
[2016-07-20 06:13] LABS: ALKALINE PHOSPHATASE 64 U/L (45-117); ALT (GPT) 51 U/L (12-78); TOTAL BILIRUBIN ADULT 0.3 MG/DL (0.2-1.0)
[2016-07-20] MEDS: INSULIN NovoLIN REGULAR SUPPLEMENTAL SCALE SQ SCH ×3 (06:42→18:00)
[2016-07-20] MEDS: DOCUSATE SODIUM 100 MG/10 ML UDC OG SCH ×2 (07:50→20:50)
[2016-07-20] MEDS: LEVOFLOXACIN 750 MG PREMIX INJ 150 ML IV SCH (07:50)
[2016-07-20] MEDS: PANTOPRAZOLE SODIUM 40 MG VIAL IV PUSH SCH (07:51)
[2016-07-20] MEDS: ONDANSETRON HCL 4 MG/2 ML VIAL IV PUSH SCH (07:52)
[2016-07-20] MEDS: SENNOSIDES SYRUP 8.8 MG/5 ML CUP OG SCH ×2 (07:52→20:50)
[2016-07-20] MEDS: NICOTINE 21 MG/24 HR PATCH TD SCH (07:53)
[2016-07-20] MEDS: ENOXAPARIN SODIUM 40 MG/0.4 ML SYRINGE SQ SCH (07:54)
[2016-07-20] MEDS: SODIUM CHLORIDE 0.9% FLUSH 5 ML FLUSH FLUSH SCH ×2 (07:54→20:52)
--- NOTE | 2016-07-20 08:46 | HHI.IDPN ---
Subjective Subjective Remarks Mr. Ambrocio is a 55-year-old male with past medical history significant for renal calculi status post bilateral ureteral stent placements as well as hypertension who presented to the emergency department to bilateral flank pain for the past 3 days. He also had shortness of breath and chest discomfort on admission. UA with some pyuria. UC negative. CT A/P stent ok, no hydro. ID following for sepsis, pneumonia, legionella antigen positive, possible legionellosis with secondary bacterial infection. Overnight events reviewed with RN. Afebrile BP OK Intubated, awake, Follows simple commands UO ok No rash Antibiotics Azithro IV Levaquin IV Cefepime IV Flagyl oral Lines Line sites with no e/o infection Past Medical History reviewed. 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 Vital Signs Date Time Temp Pulse Resp B/P Pulse Ox O2 Delivery O2 Flow Rate FiO2 07/20/16 06:00 99 07/20/16 04:05 96 60 07/20/16 04:00 98.5 84 18 112/65 95 07/20/16 04:00 60 07/20/16 04:00 84 07/20/16 02:00 103 07/20/16 01:02 94 60 07/20/16 00:00 60 07/20/16 00:00 90 07/20/16 00:00 98.7 90 18 105/58 94 07/19/16 22:03 92 50 07/19/16 22:00 97 07/19/16 20:00 98.6 86 18 133/72 93 07/19/16 20:00 60 07/19/16 20:00 82 07/19/16 19:53 94 50 07/19/16 18:00 81 07/19/16 16:00 50 07/19/16 16:00 98.9 81 18 111/63 90 07/19/16 16:00 100 07/19/16 14:51 94 50 07/19/16 14:00 81 07/19/16 12:00 50 07/19/16 12:00 98.7 90 18 115/66 99 07/19/16 12:00 90 07/19/16 11:00 95 50 07/19/16 10:00 83 07/19/16 07/19/16 07/20/16 15:00 23:00 07:00 Intake Total 1308 ml 1165 ml 1531 ml Output Total 1975 ml 1050 ml 1310 ml Balance -667 ml 115 ml 221 ml Intake Oral 0 ml IV Total 924 ml 481 ml 535 ml Tube Feeding 384 ml 324 ml 336 ml Tube Irrigant 60 ml 60 ml Other 300 ml 600 ml Output Urine Total 1375 ml 1000 ml 1260 ml Stool Total 600 ml 50 ml 50 ml . Laboratory Tests Test 07/18/16 07/19/16 07/20/16 12:45 11:30 05:20 White Blood Count 19.2 TH/MM3 21.0 TH/MM3 15.9 TH/MM3 Red Blood Count 2.97 MIL/MM3 3.20 MIL/MM3 2.75 MIL/MM3 Hemoglobin 9.8 GM/DL 10.2 GM/DL 8.8 GM/DL Hematocrit 29.2 % 31.0 % 26.7 % Mean Corpuscular Volume 98.3 FL 96.7 FL 97.2 FL Mean Corpuscular Hemoglobin 33.0 PG 32.0 PG 32.1 PG Mean Corpuscular Hemoglobin 33.6 % 33.0 % 33.1 % Concent Red Cell Distribution Width 14.5 % 14.6 % 14.1 % Platelet Count 307 TH/MM3 302 TH/MM3 274 TH/MM3 Mean Platelet Volume 9.5 FL 9.6 FL 9.3 FL Neutrophils (%) (Auto) 88.6 % 83.0 % Lymphocytes (%) (Auto) 4.1 % 9.1 % Monocytes (%) (Auto) 7.1 % 7.6 % Eosinophils (%) (Auto) 0.1 % 0.0 % Basophils (%) (Auto) 0.1 % 0.3 % Neutrophils # (Auto) 17.1 TH/MM3 13.2 TH/MM3 Lymphocytes # (Auto) 0.8 TH/MM3 1.4 TH/MM3 Monocytes # (Auto) 1.4 TH/MM3 1.2 TH/MM3 Eosinophils # (Auto) 0.0 TH/MM3 0.0 TH/MM3 Basophils # (Auto) 0.0 TH/MM3 0.0 TH/MM3 CBC Comment AUTO DIFF DIFF FINAL Differential Total Cells 100 Counted Neutrophils % (Manual) 76 % Band Neutrophils % 14 % Lymphocytes % 4 % Monocytes % 6 % Neutrophils # (Manual) 17.3 TH/MM3 Differential Comment FINAL DIFF MANUAL Platelet Estimate NORMAL Platelet Morphology Comment NORMAL Laboratory Tests Test 07/18/16 07/18/16 07/19/16 07/19/16 09:40 12:45 04:30 11:30 Potassium Level 5.3 MEQ/L 4.7 MEQ/L Phosphorus Level 4.7 MG/DL 4.5 MG/DL Magnesium Level 1.9 MG/DL 1.6 MG/DL Sodium Level 145 MEQ/L Chloride Level 105 MEQ/L Carbon Dioxide Level 29.2 MEQ/L Anion Gap 11 MEQ/L Blood Urea Nitrogen 72 MG/DL Creatinine 1.84 MG/DL Estimat Glomerular Filtration 38 ML/MIN Rate Random Glucose 156 MG/DL Calcium Level 9.2 MG/DL Lactic Acid Level 1.3 mmol/L Total Creatine Kinase 181 U/L Test 07/20/16 05:20 Sodium Level 143 MEQ/L Potassium Level 4.3 MEQ/L Chloride Level 105 MEQ/L Carbon Dioxide Level 28.0 MEQ/L Anion Gap 10 MEQ/L Blood Urea Nitrogen 68 MG/DL Creatinine 1.74 MG/DL Estimat Glomerular Filtration 41 ML/MIN Rate Random Glucose 164 MG/DL Calcium Level 8.8 MG/DL Phosphorus Level 4.7 MG/DL Magnesium Level 1.7 MG/DL Total Bilirubin 0.3 MG/DL Aspartate Amino Transf 27 U/L (AST/SGOT) Alanine Aminotransferase 51 U/L (ALT/SGPT) Alkaline Phosphatase 64 U/L Total Protein 5.9 GM/DL Albumin 2.0 GM/DL Microbiology Date/Time Procedure Status Source Growth 07/17/16 13:55 Gram Stain - Final Complete Bronchial Washings Left Lower Lobe 07/17/16 13:55 Bronchial Culture - Final Complete Bronchial Washings Left Lower Lobe HEAVY GROWTH NORMAL RESPIRATORY CLYDE 07/17/16 13:55 Acid Fast Stain - Final Resulted Bronchial Washings Left Lower Lobe NO ACID FAST BACILLI SEEN 07/17/16 13:55 Mycobacterial Culture Resulted Bronchial Washings Left Lower Lobe Pending 07/17/16 13:55 Fungal Smear - Final Resulted Bronchial Washings Left Lower Lobe NO FUNGAL ELEMENTS SEEN. 07/17/16 13:55 Fungal Culture Resulted Bronchial Washings Left Lower Lobe Pending Imaging Chest X-Ray 07/16/16 0000 Signed Impressions: Service Date/Time: Saturday, July 16, 2016 02:47 - CONCLUSION: No significant change has occurred. Andi Parra MD Chest X-Ray 07/15/16 0000 Signed Impressions: Service Date/Time: Friday, July 15, 2016 07:05 - CONCLUSION: 1. Improved aeration of the left upper lung compared to the prior examination. 2. Mild infiltrate right upper lung. Elgin Levin MD Chest X-Ray 07/15/16 0000 Signed Impressions: Service Date/Time: Friday, July 15, 2016 07:05 - CONCLUSION: 1. Improved aeration of the left upper lung compared to the prior examination. 2. Mild infiltrate right upper lung. Elgin Levin MD Soft Tissue Ultrasound 07/12/16 0000 Signed Impressions: Service Date/Time: Tuesday, July 12, 2016 19:25 - CONCLUSION: Well- defined heterogeneous mass which is nonspecific but likely represents a sebaceous cyst. Alexandro De La O MD Abdomen X-Ray 07/12/16 0000 Signed Impressions: Service Date/Time: Tuesday, July 12, 2016 16:59 - CONCLUSION: Nonspecific, benign abdomen appearance. Patel Torres MD Abdomen/Pelvis CT 07/07/16 1110 Signed Impressions: Service Date/Time: Thursday, July 07, 2016 11:31 - CONCLUSION: 1. Renal stones and stents in good position as described above. Yosvany Fuentes MD FACR Chest CT 07/07/16 0000 Signed Impressions: Service Date/Time: Thursday, July 07, 2016 16:09 - CONCLUSION: 1. Consolidative changes in the left upper lobe. There is suspicious adenopathy in the mediastinum. This may be more than an inflammatory process. 2. Bronchoscopy may be the easiest way to make a diagnosis of a neoplastic process. Yosvany Fuentes MD FACR Last Impressions Chest X-Ray 07/09/16 0000 Signed Impressions: Service Date/Time: Saturday, July 09, 2016 10:44 - CONCLUSION: Left subclavian central line tip is in the superior aspect of the SVC. No pneumothorax is visualized. Otherwise, stable exam. Patel Palmer MD Abdomen/Pelvis CT 07/07/16 1110 Signed Impressions: Service Date/Time: Thursday, July 07, 2016 11:31 - CONCLUSION: 1. Renal stones and stents in good position as described above. Yosvany Fuentes MD FACR Chest CT 07/07/16 0000 Signed Impressions: Service Date/Time: Thursday, July 07, 2016 16:09 - CONCLUSION: 1. Consolidative changes in the left upper lobe. There is suspicious adenopathy in the mediastinum. This may be more than an inflammatory process. 2. Bronchoscopy may be the easiest way to make a diagnosis of a neoplastic process. Yosvany Fuentes MD FACR Physical Exam GENERAL: Obese. Well nourished. On the vent., NAD SKIN: No rashes. Cool and dry. HEENT: [place] conjunctiva, no icterus, orally intubated. CARDIOVASCULAR: HS audible. No murmur appreciated. RESPIRATORY: Breath sounds diminished bilaterally posteriorly. GASTROINTESTINAL: soft, NT MUSCULOSKELETAL: Edema hands and feet NEUROLOGICAL: Sedated. Psych could not be assessed IV line sites with no evidence of infection. Assessment & Plan Remarks Severe sepsis present on admission(criteria explained in history of present illness) Pneumonia present on admission (community acquired, atypical, possible component of healthcare associated pneumonia) Likely Legionella Pneumonia with ARDS Bilateral ureteral stents. Acute renal failure present on admission likely sepsis, AIN, ATN. Acute metabolic encephalopathy: likely secondary to sepsis Leukocytosis, persistent. Recommendations: Continue Azithromycin IV (will likely need 3 weeks or more) Continue Levaquin IV (will likely need 3 weeks or more) Continue Cefepime IV Continue Flagyl oral (aspiration risk) Follow cultures Follow clinically. d/w RN d/w pts daughter Dr. Mccarthy to cover for me this weekend. Brenda Walsh MD Jul 20, 2016 08:46
[2016-07-20] MEDS: ARTIFICIAL TEARS OPTH OINT 3.5 APPLIC/3.5 GM TUBO EACH EYE SCH ×2 (09:00→21:00)
[2016-07-20] MEDS: SODIUM CHLORIDE 0.9% FLUSH 5 ML FLUSH IVF SCH ×2 (09:00→11:19)
[2016-07-20] MEDS: THIAMINE HCL 100 MG TAB PO SCH (09:00)
[2016-07-20] MEDS: fentaNYL DRIP 250 ML IV SCH ×2 (09:13→18:46)
[2016-07-20] MEDS ORDERED: CHLOROTHIAZIDE SOD 500 MG VIAL IV ONE (09:45)
--- NOTE | 2016-07-20 09:46 | HHI.NPPN ---
Subjective General Problems: Anemia, Edema Renal Failure: Acute Interval History He remains intubated, but awake. Preparing for EEG during my exam. Still edematous. Renal function is better. (Chiquita Sher) Review of Systems General General Remarks unable to obtain due to intubation/sedation (Chiquita Sher) Objective Data Data 07/19/16 07/20/16 19:00 07:00 Intake Total 1308 ml 2696 ml Output Total 1975 ml 2360 ml Balance -667 ml 336 ml Intake Oral 0 ml IV Total 924 ml 1016 ml Tube Feeding 384 ml 660 ml Tube Irrigant 120 ml Other 900 ml Output Urine Total 1375 ml 2260 ml Stool Total 600 ml 100 ml Vital Signs Date Time Temp Pulse Resp B/P Pulse Ox O2 Delivery O2 Flow Rate FiO2 07/20/16 06:00 99 07/20/16 04:05 96 60 07/20/16 04:00 98.5 84 18 112/65 95 07/20/16 04:00 60 07/20/16 04:00 84 07/20/16 02:00 103 07/20/16 01:02 94 60 07/20/16 00:00 60 07/20/16 00:00 90 07/20/16 00:00 98.7 90 18 105/58 94 07/19/16 22:03 92 50 07/19/16 22:00 97 07/19/16 20:00 98.6 86 18 133/72 93 07/19/16 20:00 60 07/19/16 20:00 82 07/19/16 19:53 94 50 07/19/16 18:00 81 07/19/16 16:00 50 07/19/16 16:00 98.9 81 18 111/63 90 07/19/16 16:00 100 07/19/16 14:51 94 50 07/19/16 14:00 81 07/19/16 12:00 50 07/19/16 12:00 98.7 90 18 115/66 99 07/19/16 12:00 90 07/19/16 11:00 95 50 07/19/16 10:00 83 (Chiquita Sher) -: 07/20/16 0520 07/20/16 0520 Imaging Last 72 hours Impressions Chest X-Ray 07/20/16 0600 Signed Impressions: Service Date/Time: July 02:45 - CONCLUSION: 1. Left subclavian central venous catheter out. Other lines and tubes unchanged. The 2. No significant change left greater than right bilateral airspace opacities and small left pleural effusion. Patel Sanchez MD Chest X-Ray 07/18/16 1554 Signed Impressions: Service Date/Time: Monday, July 18, 2016 15:35 - CONCLUSION: 1. Uncomplicated line placement. No evidence of pneumothorax. Elmer Martinez MD Chest X-Ray 07/18/16 0600 Signed Impressions: Service Date/Time: Monday, July 18, 2016 04:36 - CONCLUSION: No significant change. Patel Sanchez MD Tubes & Lines: [facility] Tubes & Lines Comment NG tube, A line , rectal tube Drip Comment fentanyl, propofol (Chiquita Sher B. AUDIO NARRATOR) Physical Exam General Appearance: Well Developed Appearance Remarks sedated/on vent (Chiquita Sher B. AUDIO NARRATOR) Eyes Eye Exam: Pupils Equal (Tino Sheron B. AUDIO NARRATOR) Ears & Nose Ears & Nose Remarks periorbital and facial edema but improving (Chiquita Sher B. AUDIO NARRATOR) Throat Throat Remarks bleeding in mouth/lips, nares (Chiquita Sher B. AUDIO NARRATOR) Neck Neck Exam: Neck Supple (Chiquita Sher B. AUDIO NARRATOR) Pulmonary Resp Exam: Crackles, Rhonchi, Decreased Bases Resp Remarks right lung diminished lung sounds, no wheezing, bronchial left lung sounds with scattered rales (Chiquita Sher B. AUDIO NARRATOR) Cardiology CV Exam: Regular, Normal Sinus Rhythm, Good Perfusion (Chiquita Sher B. AUDIO NARRATOR) Gastrointestinal/Abdomen GI Exam: Soft, Non-Tender, Bowel Sounds Present, Positive Bowel Movement GI Remarks liquid stool (Chiquita Sher B. AUDIO NARRATOR) Musculoskeletal MS Exam: Joints Intact, Normal Tone (Chiquita Sher B. AUDIO NARRATOR) Integumentary Skin Exam: Warm, Dry Skin Remarks healing skin tears (Chiquita Sher B. AUDIO NARRATOR) Extremeties Extremities Exam: Pedal Pulses Palpable, Moderate Edema, Pitting Edema, Dependent Edema (Chiquita Sher) Neurologic Neuro Exam: Moving All Extremities, Unresponsive, Sedated Neuro Remarks opens eyes on command (Chiquita Sher) VTE Prophylaxis Device: SCDs (Chiquita Sher) Assessment/Plan Discussed Condition With: Daughter Assessment Summary: JASON/Acute Renal Failure, Fluid/Volume Overload Electrolyte Assessment: Hypernatremia Problem List: (1) Acute renal failure Plan: His creatinine was 1.13 on 07/08 he became septic around that time with BP 70/30s, started on pressors JASON due to decreased renal perfusion (sepsis), ATN. AIN is a possibility renal function continues to improve still demonstrating fluid overload, continue Diuril and monitor response follow urine output K corrected ; BP stable off pressors monitor fluid volume status, avoid IVF and attempt to double concentrate all fluids. daily renal panel avoid nephrotoxins (2) Sepsis Plan: due to legionella, ARDS leukocytosis improving , he is afebrile, recent blood cultures are negative he is on Zithromax, Cefepime, Levaquin, and Flagyl monitor clinically, serial chest xrays, he had bronch, awaiting pathology ID following. vent settings: 18/600/50/10 (3) Hypernatremia Plan: corrected, continue free water through tube feeding continue Diuril monitor serum sodium (4) Hyperkalemia Plan: improved, monitor for recurrence (5) Left flank pain Plan: with non obstructing stone s/p previous bilateral ureteral stent placement, may need lithotripsy and stent removal in future urology has evaluated (Chiquita Sher) Plan patient was seen and examined. Renal function continues to improve. Continue free water and Diuril. (Harvey Handley MD) Chiquita Sher Jul 20, 2016 09:45 Harvey Handley MD Jul 20, 2016 11:10
--- NOTE | 2016-07-20 10:22 | HHI.CCPN ---
Subjective Remarks/Hospital Course The patient is a 55-year-old male with a past medical history of hypertension, renal calculi, status post bilateral ureteral stent placement in April, . He presented to [facility] ED with a three-day history of bilateral flank pain associated with fever and severe body aches. Just prior to admission, the patient had gross hematuria per his daughter and had decreased p.o. intake. The patient denied any shortness of breath or chest pain. Due to his abdominal pain, a CT scan of the abdomen and pelvis was obtained which showed renal stones and stent in place. An initial chest x-ray in the ED showed extensive airspace disease throughout the left upper lobe characteristic of pneumonia. He subsequently underwent a CT scan of the chest which showed consolidative changes in the left upper lobe along with suspicious adenopathy in the mediastinum. His initial creatinine level was 1.6 and the patient was placed on broad-spectrum antibiotics in addition to IV fluids. His laboratory data from today showed improvement of his renal function with a creatinine of 1.30 and lactic acid level measured at 1.0. [facility] was called for respiratory distress and the patient was a nonrebreather mask and transferred to [facility]. When seen in the ICU he was tachypneic, tachycardic and had a temperature of 103. The patient was subsequently intubated by myself and placed on full mechanical ventilation. A chest x-ray post intubation showed severe diffuse left lung airspace consolidation and a new mild consolation versus atelectasis in the right midlung zone. His nasal washing on arrival negative for influenza, and blood cultures and urine culture from yesterday showed no growth to date. The patient had a temperature of 102.8 earlier today. 07/09 Patient is sedated with versed, Fentanyl and intubated. Now on PRVC with RR 20, TV 550, IT:1, PEEP:15 and FIO2 100%. Afebrile. His Legionella urinary AG is positive. Renal function worse today with Cr 1.86 from 1.30 07/10: Patient remains very critical. Placed on Prone therapy yesterday for worsening respiratory status and severe hypoxia. Worsening renal function- creatinine increased from 1.8-2.8 today, urology following, will consult nephrology. Remains on 4 mics per minute of Levophed, urine output adequate 1.9 L in 24 hours. Currently on broad-spectrum antibiotics per ID on Zosyn and azithromycin Zyvox. I have added Levaquin for double coverage for Legionella 07/11: Remains intubated sedated. FiO2 at 50%. Chest x-ray shows bilaterally improving aeration. We'll reduce PEEP to 12. Urine output is adequate but creatinine has increased to 3. 07/12: Patient remains on prone therapy, remains critically ill but slowly his improving oxygenation. Currently on 10 of PEEP and 50% oxygen. Urine output is 1.7 L in 24 hours, increase in BUN to 79 creatinine is 3.2. We'll start weaning and starting today 07/13: Remains critically ill, but showing continued signs of improvement. UO >4L , Cr improved from 3.2 to 2.8. On weaning doses of Flolan. Maintaining oxygen saturation above 90% on 45% FiO2. WBC count is trending down. Will discontinue prone therapy today 07/14 Patient is off Rotoprone bed on ACV with RR 18, TV 600, PEEP: 10 and FIO2 50%. Sedated with Diprivan/Fentanyl and Versed. Afebrile.Renal function worse today with Cr: 3.17 today from 2.79 with UO 3600ml in 24 hrs. 07/15 Patient remains sedated and intubated. Afebrile. Now on ACV with RR 18, TV 600< PEEP:10 and FIO2 increased 60%. 07/16: Tmax 99.1. Tolerating tube feeding. Positive BM. Arousable on the ventilator. 07/17: Currently afebrile. Worsening chest x-ray today. Patient received fiberoptic bronchoscopy which essentially cleared secretions from left lingula/ lower lobe. Arousable and does follow commands. 07/18: Afebrile. Status post bronchoscopy yesterday. Tolerating tube feeds. Positive BM. Arousable and does follow commands. Nurses nursing "slight" tremor left upper extremity occasionally. 07/19: Sedated, orally intubated on mechanical ventilation 07/20: Remains sedated, orally intubated on mechanical ventilation. Tolerating tube feeds. PEEP remains at +10 FiO2 50% Objective Vital Signs Date Time Temp Pulse Resp B/P Pulse Ox O2 Delivery O2 Flow Rate FiO2 07/20/16 06:00 99 07/20/16 04:05 96 60 07/20/16 04:00 98.5 18 112/65 Intake and Output 07/19/16 07/19/16 07/20/16 08:00 16:00 00:00 Intake Total 932 ml 1308 ml 1165 ml Output Total 2200 ml 1975 ml 1050 ml Balance -1268 ml -667 ml 115 ml Result Diagram: 07/20/16 0520 07/20/16 0520 Other Results Microbiology Date/Time Procedure Status Source Growth 07/17/16 13:55 Gram Stain - Final Complete Bronchial Washings Left Lower Lobe 07/17/16 13:55 Bronchial Culture - Final Complete Bronchial Washings Left Lower Lobe HEAVY GROWTH NORMAL RESPIRATORY CLYDE Imaging Last 24 hours Impressions Chest X-Ray 07/20/16 0600 Signed Impressions: Service Date/Time: July 02:45 - CONCLUSION: 1. Left subclavian central venous catheter out. Other lines and tubes unchanged. The 2. No significant change left greater than right bilateral airspace opacities and small left pleural effusion. Patel Sanchez MD Last Impressions Chest X-Ray 07/18/16 1554 Signed Impressions: Service Date/Time: Monday, July 18, 2016 15:35 - CONCLUSION: 1. Uncomplicated line placement. No evidence of pneumothorax. Elmer Martinez MD Soft Tissue Ultrasound 07/12/16 0000 Signed Impressions: Service Date/Time: Tuesday, July 12, 2016 19:25 - CONCLUSION: Well- defined heterogeneous mass which is nonspecific but likely represents a sebaceous cyst. Alexandro De La O MD Abdomen X-Ray 07/12/16 0000 Signed Impressions: Service Date/Time: Tuesday, July 12, 2016 16:59 - CONCLUSION: Nonspecific, benign abdomen appearance. Patel Torres MD Abdomen/Pelvis CT 07/07/16 1110 Signed Impressions: Service Date/Time: Thursday, July 07, 2016 11:31 - CONCLUSION: 1. Renal stones and stents in good position as described above. Yosvany Fuentes MD FACR Chest CT 07/07/16 0000 Signed Impressions: Service Date/Time: Thursday, July 07, 2016 16:09 - CONCLUSION: 1. Consolidative changes in the left upper lobe. There is suspicious adenopathy in the mediastinum. This may be more than an inflammatory process. 2. Bronchoscopy may be the easiest way to make a diagnosis of a neoplastic process. Yosvany Fuentes MD FACR Objective Remarks GENERAL: Patient is 55 yo critically ill intubated and sedated. SKIN: Warm and dry. No rashes. No skin breakdown HEAD: Normocephalic. EYES: No injection or drainage. NECK: Supple, trachea midline. Orally intubated. LIJ C/D/I CARDIOVASCULAR: Regular rate and rhythm S1, S2 no S4. Currently without murmurs , gallops, or rubs. RESPIRATORY: Breath sounds equal bilaterally with few coarse BS appreciated throughout the left lung alba GASTROINTESTINAL: Abdomen soft, non-tender, nondistended. MUSCULOSKELETAL: No independent peripheral edema. NEURO: Arousable on the ventilator. Follows commands. Left upper extremity tremor - movement Date of Insertion: Jul 18, 2016 Line: Central Venous Catheter Side: Left Location: Internal, Jugular A/P Assessment and Plan Plan Neuro/Psych: Acute toxic metabolic encephalopathy secondary to likely Legionella pneumonia -On Fentanyl at 250 g per hour and Diprivan infusion at 50 mcg/kg per minute for sedation analgesia while intubated. off Nimbex- discontinued 07/13 -Continue with thiamine 100 mg daily. Continue close neuro monitoring -Daily sedation vacation when appropriate. --Check EEG - encephalopathy - no epileptiform activity. Pulm: Acute hypoxemic respiratory failure secondary to pneumonia/community acquired ARDS ACV 18/600/10/55 Ventilator bundle Bronchodilator therapy every 6 hours and as needed -off Prone therapy for severe ARDS initiated 07/09/16. Discontinued 07/13/16 Solumederol 40mg q12, Pulm is following-Dr. Jaimes Chest x-ray shows improving left-sided lobar pneumonia Status post fiberoptic bronchoscopy 07/17. See report. Sample sent from left lower lobe no growth to date Nicotine patch 21 mg/day CV: Hypertension History dyslipidemia -Monitor HR and BP keep MAP>65mmHg. -2D echo 07/10/16-EF 60%, moderate LVH -On Hydralazine 50mg Q8, Norvasc 10mg daily, Metoprolol 50mg Q8 - On Lipitor 80 mg by mouth daily for dyslipidemia Home medication atorvastatin 80 mg daily for dyslipidemia. Home medication Norvasc 10 milligrams daily for hypertension. /renal: Urinary tract infection History of renal calculi with bilateral ureteral stent placement in April Hyperphosphatemia -Nephrology Dr. Handley following for worsening renal function. -Off Bumex. -Urology service consulted for hx flank pain and renal calculi with ureteral stent placement-CT abdomen pelvis showed stents in good position Plan for a stent removal/ureteroscopy with possible lithotripsy once patient is medically stable -Acute kidney failure could be related to severe sepsis and hypotension -Monitor renal function, Is and Os and electrolyte replacement as needed. -On Free water 300ml Q4, monitor Na level. GI: -On tube feeds- Nepro1.5@45ml/hr, Protonix 40mg IV daily for GI prophylaxis -Bowel regimen with Colace and senna. -Continue Reglan ID: Likely Legionella pneumonia -Continue with ABX per ID Continue Azithromycin IV, Levaquin IV, Cefepime 2 gm IV q24hrs and Flagyl oral - 07/17 - bronchus - ngtd - 07/16 - sputum - heavy growth - Blood cultures 2 - 07/09 - no growth - Blood Cultures 2 - 07/08 - no growth --07/08 Legionella urinary antigen positive. -07/07 BC : GPC 06/21 bottles-coag neg staph, probable contaminant - 07/07 urine no growth- Sputum - 07/07 no growth Endo: Hyperglycemia/steroid-induced -SSI with Accu-Chek q.6 hours for glycemic control Heme: Leukocytosis -Monitor CBC. GI Protein calorie malnutrition/moderate Gastroesophageal reflux disease Switch to Nepro today by nephrology. Protonix for GI prophylaxis. On Dexilant 60 mg by mouth daily at home. Colace/Senokot for bowel regimen. FEN Replace lytes as indicated Proph: -GI prophylaxis with Protonix 40 mg daily and DVT prophylaxis with SCDs and Lovenox subcu. Lines: -Peripheral IV, L IJ CVL 07/18 - present Critical Care: The total critical care time was 35 minutes. Time to perform other separately billable procedures was not included in the critical care time. Jon Walsh MD Jul 20, 2016 10:22
[2016-07-20] MEDS: CEFEPIME INJ 2,000 MG in SODIUM CHLORIDE 0.9% INJ 100 ML IV SCH ×2 (11:17→20:45)
[2016-07-20] MEDS: AZITHROMYCIN INJ 500 MG in SODIUM CHLOR 0.9% 250 ML INJ 250 ML IV SCH (11:17)
--- NOTE | 2016-07-20 13:11 | HHI.FPPN ---
Subjective Remarks No acute events overnight. Afebrile vital signs stable. Daughter at bedside. Pt remains sedated, orally intubated on mechanical ventilation. Opening eyes spontaneously. Tolerating tube feeds. PEEP remains at +10 FiO2 40% Objective Vitals Vital Signs Date Time Temp Pulse Resp B/P Pulse Ox O2 Delivery O2 Flow Rate FiO2 07/20/16 12:34 100 40 07/20/16 10:27 96 50 07/20/16 06:00 99 07/20/16 04:05 96 60 07/20/16 04:00 98.5 84 18 112/65 95 07/20/16 04:00 60 07/20/16 04:00 84 07/20/16 02:00 103 07/20/16 01:02 94 60 07/20/16 00:00 60 07/20/16 00:00 90 07/20/16 00:00 98.7 90 18 105/58 94 07/19/16 22:03 92 50 07/19/16 22:00 97 07/19/16 20:00 98.6 86 18 133/72 93 07/19/16 20:00 60 07/19/16 20:00 82 07/19/16 19:53 94 50 07/19/16 18:00 81 07/19/16 16:00 50 07/19/16 16:00 98.9 81 18 111/63 90 07/19/16 16:00 100 07/19/16 14:51 94 50 07/19/16 14:00 81 I/O 07/19/16 07/19/16 07/19/16 07/20/16 07/20/16 07/20/16 07:00 15:00 23:00 07:00 15:00 23:00 Intake Total 932 ml 1308 ml 1165 ml 1531 ml Output Total 2200 ml 1975 ml 1050 ml 1310 ml Balance -1268 ml -667 ml 115 ml 221 ml Intake Oral 0 ml 0 ml IV Total 602 ml 924 ml 481 ml 535 ml Tube Feeding 330 ml 384 ml 324 ml 336 ml Tube Irrigant 60 ml 60 ml Other 300 ml 600 ml Output Urine Total 1450 ml 1375 ml 1000 ml 1260 ml Stool Total 750 ml 600 ml 50 ml 50 ml Result Diagram: 07/20/16 0520 07/20/16 0520 Imaging Last Impressions Chest X-Ray 07/20/16 0600 Signed Impressions: Service Date/Time: July 02:45 - CONCLUSION: 1. Left subclavian central venous catheter out. Other lines and tubes unchanged. The 2. No significant change left greater than right bilateral airspace opacities and small left pleural effusion. Patel Sanchez MD Soft Tissue Ultrasound 07/12/16 0000 Signed Impressions: Service Date/Time: Tuesday, July 12, 2016 19:25 - CONCLUSION: Well- defined heterogeneous mass which is nonspecific but likely represents a sebaceous cyst. Alexandro De La O MD Abdomen X-Ray 07/12/16 0000 Signed Impressions: Service Date/Time: Tuesday, July 12, 2016 16:59 - CONCLUSION: Nonspecific, benign abdomen appearance. Patel Torres MD Abdomen/Pelvis CT 07/07/16 1110 Signed Impressions: Service Date/Time: Thursday, July 07, 2016 11:31 - CONCLUSION: 1. Renal stones and stents in good position as described above. Yosvany Fuentes MD FACR Chest CT 07/07/16 0000 Signed Impressions: Service Date/Time: Thursday, July 07, 2016 16:09 - CONCLUSION: 1. Consolidative changes in the left upper lobe. There is suspicious adenopathy in the mediastinum. This may be more than an inflammatory process. 2. Bronchoscopy may be the easiest way to make a diagnosis of a neoplastic process. Yosvany Fuentes MD FACR Objective Remarks GEN: Well-developed, well-nourished patient. Sedated and intubated on [facility] vent , supine position. Pt unable to respond, but he opens his eyes spontaneously. NECK: Supple, left internal jugular central line clean, dry, intact CV: Regular rate and rhythm LUNGS: Clear breath sounds bilaterally with good air movement. No wheezes or crackles. Vent settings: 18 breaths per minute, breath volume of 0.6 L, PEEP 10 cm H2O, flow trigger 2 L/m, FiO2 decreased from 50% to 40% ABD: Soft nontender nondistended : + urine output via [facility] NEURO/PSYCH: Sedated, arousable Ext: Extremities warm and well-perfused. Date of Insertion: Jul 18, 2016 Line: Central Venous Catheter Side: Left Location: Internal, Jugular A/P Assessment and Plan 55 year old male with h/o HTN, renal calculi, s/p bilateral ureteral stent placements presented due to bilateral flank pain more significant on the left x 3 days, admitted for left-sided pneumonia, sepsis, possible UTI. Critical care was consulted on 07/08 due to acute worsening of symptoms associated with respiratory distress. Neuro: Sedated due to intubation, acute metabolic encephalopathy -On Versed, Fentanyl, and propofol for sedation. -Daily sedation vacation when appropriate -EEG showed encephalopathy, no epilepsy Pulm: Left legionella pneumonia, severe ARDS, respiratory distress, COPD, suspicious adenopathy in the mediastinum Pulmonary consulted: appreciate recommendations * Bronchoscopy preformed on 07/17, samples were sent for culture -Currently on PEEP of 10, FiO2 of 40%, RR 18, TV 600 Imaging: * CXR 07/18: No significant change * CXR 07/17: Worsening consolidation and volume loss on the left * CXR 07/16: No significant change * CXR 07/15: Improved aeration of the left upper lobe compared to prior examination. Mild infiltrate right upper lobe. * CXR 07/09: Persistent severe diffuse left lung air space consolidation with likely left pleural effusion. Stable subtle airspace consolidation/opacity the in the right midlung * Chest CT: Consolidative changes in the left upper lobe. There is suspicious adenopathy in the mediastinum. This may be more than an inflammatory process Medications: * Albuterol and Duonebs * Solu-Medrol, 40mg Q12 Cardiac: HLD, HTN -ACS negative -Echo 07/10: Mild to moderate LVH, normal systolic function, ejection fraction estimated to be 60%. No regional wall motion abnormalities. Mild mitral valve regurgitation. Medications: * Amlodipine 10 mg * Hydralazine 50mg PO q8 and PRN * Metoprolol 50 mg q8 * Atorvastatin 80 mg * Labetalol 20 mg PRN : S/P bilateral ureteral stents, JASON -Creatinine continues to downtrend to 2.11 today. + UOP Urology consulted: Appreciate recommendations * Once clinical picture improves, may remove stents versus attempted ureteroscopy and laser lithotripsy * Will continue to follow Nephrology consulted: appreciate recommendations * JASON likely due to decreased renal perfusion * Minimize IVF. Double concentrate all fluids. Monitor fluid status, I&O's, electrolytes * Bump in Cr may have been due to aggressive diuresis * Free water 300 mL every 4h GI: -On tube feeds- Glucerna -Metoclopramide schedule q8h -Protonix 40mg IV daily for GI prophylaxis -Colace and senna ID: Legionella pneumonia, leukocytosis, septic shock, -Leukocytosis improving, still receiving steroids -Afebrile since 07/09 -Legionella antigen positive in urine -1 of 2 blood culture on 07/07 positive for staph S/P coagulase-negative, likely due to contamination -Repeat blood cultures, sputum cultures, urine cx NGTD -Urine eosinophils: Negative -Follow repeat Urine and sputum culture 07/16 ID consulted: Appreciate recommendations * Cefepime 07/11- * Flagyl 07/11- * Azithromycin 07/08- * Levaquin 07/10- Discontinued ABX: * Zyvox 07/09-07/11 * Zosyn 07/07-07/11 * Vancomycin 07/07-07/09, discontinued due to concern for drug fever and allergic interstitial nephritis Endo: SSI with Accu-Chek every 6h Electrolytes: Potassium within normal limits at 5.0. Will continue to monitor and replete as necessary. Pt received 10 units insulin, 50Ml of 50% Dextrose, calcium gluconate 1Gm IV x1 , Kayexalate 15Gm x1, fluid bolus. DVT Prophylaxis - Lovenox Discharge Planning Timetable unknown. Pending respiratory improvement. sdw Dr. Chaya Aly wdw Dr. Antonio Problem List: (1) Legionella pneumonia Status: Acute (2) Acute respiratory failure with hypoxia Status: Acute (3) Acute renal failure Status: Acute (4) Sepsis Status: Acute (5) COPD (chronic obstructive pulmonary disease) Status: Acute Alexandro García MD R1 Jul 20, 2016 13:11
--- NOTE | 2016-07-20 19:59 | MG ---
cc: AMARILYS ELIZABETH M.D. Lab No: Date: 07/20/16 Age: Sex: M Race: REQUESTING PHYSICIAN Dr. Wilkins An EEG was obtained on this 56-year-old patient being evaluated for possible seizures. The patient is described as sedated, though sedation was discontinued shortly before the EEG, fentanyl. The EEG is showing a fair amount of some alpha rhythms central and posterior head regions. There is intermixed theta activity and there are low amplitude beta rhythms diffusely. Overall, the rhythms seem to be fairly symmetrical and the background is reactive. Photic stimulation disclosed no significant change. There is lot of eye movement artifact intermittently. INTERPRETATION This EEG shows mild intermittent slowing suggestive of a mild diffuse disturbance of cerebral function. No epileptiform features present. At times the study appears essentially normal, as the patient seems to be more awake. MD RENETTA Thomason/ /6:39 PM /7:54 PM
[2016-07-20] MEDS: ATORVASTATIN 80 MG TAB PO SCH (20:51)
[2016-07-20] MEDS: REMOVE OLD NICODERM (NICOTINE) PATCH TD SCH (20:52)
[2016-07-21] VITALS (19 sets, daily range): BP systolic 119–158; BP diastolic 66–88; PULSE 70–96; RESP 18–21; TEMP 98–98.8; O2SAT 94–96
[2016-07-21] MEDS: INSULIN NovoLIN REGULAR SUPPLEMENTAL SCALE SQ SCH ×4 (00:24→18:00)
[2016-07-21] MEDS: hydrALAZINE HCL 50 MG TAB PO SCH ×3 (00:24→12:04)
[2016-07-21] MEDS: PROPOFOL 1000 MG/100 ML INJ 100 ML IV SCH ×7 (01:37→23:22)
[2016-07-21] MEDS: RESP: ALBUTEROL 2.5 MG/IPRATROPIUM 0.5 MG NEB (SCH) NEB ×6 (03:28→23:46)
[2016-07-21] MEDS: FREE WATER OG-TUBE SCH ×6 (04:00→20:00)
[2016-07-21 04:10] LABS: HEMATOCRIT 28.1 % (39.0-51.0); MEAN CELL VOLUME 97.8 FL (80.0-100.0); MEAN CORPUSCULAR HEMOGLOBIN 31.7 PG (27.0-34.0); MEAN CORPUSCULAR HGB CONC 32.4 % (32.0-36.0); PLATELET COUNT 284 TH/MM3 (150-450); RED BLOOD COUNT 2.87 MIL/MM3 (4.50-5.90); RED CELL DISTRIBUTION WIDTH 14.3 % (11.6-17.2); REVIEW FLAG FINAL; WHITE BLOOD COUNT 17.4 TH/MM3 (4.0-11.0)
[2016-07-21 04:23] LABS: BICARBONATE 27.6 MEQ/L (21.0-32.0); POTASSIUM 4.8 MEQ/L (3.5-5.1)
[2016-07-21] MEDS: fentaNYL DRIP 250 ML IV SCH ×3 (05:16→23:22)
[2016-07-21] MEDS: metroNIDAZOLE 500 MG TAB PO SCH ×3 (05:17→20:53)
[2016-07-21] MEDS: methylPREDNISolone SOD SUCC 40 MG/1 ML VIAL IV PUSH SCH ×2 (05:17→18:10)
[2016-07-21] MEDS: METOPROLOL TARTRATE 25 MG TAB PO SCH ×3 (05:17→20:54)
[2016-07-21] MEDS: METOCLOPRAMIDE HCL 10 MG/2 ML VIAL IV SCH ×3 (05:17→20:52)
--- NOTE | 2016-07-21 08:23 | HHI.FPPN ---
Subjective Remarks Pt seen and examined this morning. No acute events overnight. Pts nurse reports no acute concerns. PEEP 10, FIO2 40%. (Nadine Aly MD R2) Objective Vitals Vital Signs Date Time Temp Pulse Resp B/P Pulse Ox O2 Delivery O2 Flow Rate FiO2 07/21/16 07:27 95 40 07/21/16 06:00 78 07/21/16 04:10 96 40 07/21/16 04:00 50 07/21/16 04:00 98.7 96 21 158/88 94 07/21/16 04:00 96 07/21/16 02:00 80 07/21/16 01:19 96 40 07/21/16 00:00 85 07/21/16 00:00 98.8 85 18 119/69 96 07/21/16 00:00 50 07/20/16 22:00 84 07/20/16 20:00 50 07/20/16 20:00 98.7 91 18 132/73 100 07/20/16 20:00 80 07/20/16 19:35 99 40 07/20/16 18:37 80 07/20/16 16:13 99.1 80 18 114/68 100 07/20/16 16:13 81 07/20/16 16:13 50 07/20/16 15:48 98 40 07/20/16 14:10 97 07/20/16 12:34 100 40 07/20/16 12:00 99.1 93 18 112/66 100 07/20/16 12:00 50 07/20/16 12:00 93 07/20/16 10:27 96 50 07/20/16 10:00 104 I/O 07/20/16 07/20/16 07/20/16 07/21/16 07/21/16 07/21/16 07:00 15:00 23:00 07:00 15:00 23:00 Intake Total 1531 ml 1756 ml 920 ml 1166 ml Output Total 1310 ml 1250 ml 1615 ml 1120 ml Balance 221 ml 506 ml -695 ml 46 ml IV Total 535 ml 1007 ml 588 ml 332 ml Tube Feeding 336 ml 389 ml 332 ml 234 ml Tube Irrigant 60 ml 60 ml Other 600 ml 300 ml 600 ml Output Urine Total 1260 ml 1150 ml 1515 ml 940 ml Stool Total 50 ml 100 ml 100 ml 180 ml (Nadine Aly MD R2) Result Diagram: 07/21/16 0300 07/21/16 0300 Objective Remarks GEN: Well-developed, well-nourished patient. Sedated and intubated on [facility] vent , supine position. Pt unable to respond, but he opens his eyes spontaneously. NECK: Supple, left internal jugular central line clean, dry, intact CV: Regular rate and rhythm LUNGS: Clear breath sounds bilaterally with good air movement. No wheezes or crackles. Vent settings: 18 breaths per minute, PEEP 10 cm, flow trigger 2 L/m, FiO2 40% ABD: Soft nontender slightly distended : + urine output via [place] NEURO/PSYCH: Sedated, arousable Ext: Extremities warm and well-perfused. (Nadine Aly MD R2) Date of Insertion: Jul 18, 2016 Line: Central Venous Catheter Side: Left Location: Internal, Jugular (Nadine Aly MD R2) A/P Assessment and Plan 55 year old male with h/o HTN, renal calculi, s/p bilateral ureteral stent placements presented due to bilateral flank pain more significant on the left x 3 days, admitted for left-sided pneumonia, sepsis, possible UTI. Critical care was consulted on 07/08 due to acute worsening of symptoms associated with respiratory distress. Neuro: Sedated due to intubation, acute metabolic encephalopathy -On Versed, Fentanyl, and propofol for sedation. -Daily sedation vacation when appropriate -EEG showed encephalopathy, no epilepsy Pulm: Left legionella pneumonia, severe ARDS, respiratory distress, COPD, suspicious adenopathy in the mediastinum Pulmonary consulted: appreciate recommendations * Bronchoscopy preformed on 07/17, samples were sent for culture * Bronchial washings significant for heavy growth of normal respiratory lashanda. No acid fast bacilli or fungal elements appreciated. -Currently on PEEP of 10, FiO2 of 40%, RR 18, TV 600 Imaging: * CXR 07/20: Left subclavian central venous catheter out. Other lines and tubes unchanged. No significant change, left greater than right bilateral airspace opacities and small left pleural effusion. * CXR 07/18: No significant change * CXR 07/17: Worsening consolidation and volume loss on the left * CXR 07/16: No significant change * CXR 07/15: Improved aeration of the left upper lobe compared to prior examination. Mild infiltrate right upper lobe. * CXR 07/09: Persistent severe diffuse left lung air space consolidation with likely left pleural effusion. Stable subtle airspace consolidation/opacity the in the right midlung * Chest CT: Consolidative changes in the left upper lobe. There is suspicious adenopathy in the mediastinum. This may be more than an inflammatory process Medications: * Albuterol and Duonebs * Solu-Medrol, 40mg Q12 Cardiac: HLD, HTN -ACS negative -Echo 07/10: Mild to moderate LVH, normal systolic function, ejection fraction estimated to be 60%. No regional wall motion abnormalities. Mild mitral valve regurgitation. Medications: * Amlodipine 10 mg * Hydralazine 50mg PO q8 and PRN * Metoprolol 50 mg q8 * Atorvastatin 80 mg * Labetalol 20 mg PRN : S/P bilateral ureteral stents, JASON -Creatinine continues to downtrend to 1.58 today. + UOP Urology consulted: Appreciate recommendations * Once clinical picture improves, may remove stents versus attempted ureteroscopy and laser lithotripsy * Will continue to follow Nephrology consulted: appreciate recommendations * JASON likely due to decreased renal perfusion * Minimize IVF. Double concentrate all fluids. Monitor fluid status, I&O's, electrolytes * Bump in Cr may have been due to aggressive diuresis * Free water 300 mL every 4h GI: -On tube feeds- Glucerna -Metoclopramide schedule q8h -Protonix 40mg IV daily for GI prophylaxis -Colace and senna ID: Legionella pneumonia, leukocytosis, septic shock, -Leukocytosis improving, still receiving steroids -Afebrile since 07/09 -Legionella antigen positive in urine -1 of 2 blood culture on 07/07 positive for staph S/P coagulase-negative, likely due to contamination -Repeat blood cultures, sputum cultures, urine cx NGTD -Urine eosinophils: Negative -Follow repeat Urine and sputum culture 07/16 ID consulted: Appreciate recommendations * Cefepime 07/11- * Flagyl 07/11- * Azithromycin 07/08- * Levaquin 07/10- Discontinued ABX: * Zyvox 07/09-07/11 * Zosyn 07/07-07/11 * Vancomycin 07/07-07/09, discontinued due to concern for drug fever and allergic interstitial nephritis Endo: SSI with Accu-Chek every 6h Electrolytes: Potassium within normal limits. Will continue to monitor and replete as necessary. DVT Prophylaxis - Lovenox Discharge Planning Timetable unknown. Pending respiratory improvement. sdw Dr. Chaya Aly wdw Dr. Antonio (Nadine Aly MD R2) Attending Attestation Patient examined and case discussed with resident physician I have read the above note and agree with the assessment/plan as discussed with me I was involved in all medical decision making for this patient Elgin Antonio M.D. (Elgin Antonio MD) Problem List: (1) Legionella pneumonia Status: Acute (2) Acute respiratory failure with hypoxia Status: Acute (3) Acute renal failure Status: Acute (4) Sepsis Status: Acute (5) COPD (chronic obstructive pulmonary disease) Status: Acute (Nadine Aly MD R2) Nadine Aly MD R2 Jul 21, 2016 08:23 Elgin Antonio MD Jul 21, 2016 14:28
[2016-07-21] MEDS: SENNOSIDES SYRUP 8.8 MG/5 ML CUP OG SCH ×2 (08:53→20:52)
[2016-07-21] MEDS: DOCUSATE SODIUM 100 MG/10 ML UDC OG SCH ×2 (08:53→20:52)
[2016-07-21] MEDS: ENOXAPARIN SODIUM 40 MG/0.4 ML SYRINGE SQ SCH (08:53)
[2016-07-21] MEDS: SODIUM CHLORIDE 0.9% FLUSH 5 ML FLUSH FLUSH SCH ×2 (08:54→20:52)
[2016-07-21] MEDS: THIAMINE HCL 100 MG TAB PO SCH (08:54)
[2016-07-21] MEDS: PANTOPRAZOLE SODIUM 40 MG VIAL IV PUSH SCH (08:55)
[2016-07-21] MEDS: ARTIFICIAL TEARS OPTH OINT 3.5 APPLIC/3.5 GM TUBO EACH EYE SCH ×2 (08:55→20:52)
[2016-07-21] MEDS: SODIUM CHLORIDE 0.9% FLUSH 5 ML FLUSH IVF SCH ×2 (08:55→08:56)
[2016-07-21] MEDS: NICOTINE 21 MG/24 HR PATCH TD SCH (08:56)
[2016-07-21] MEDS: ONDANSETRON HCL 4 MG/2 ML VIAL IV PRN (08:57)
[2016-07-21] MEDS: CEFEPIME INJ 2,000 MG in SODIUM CHLORIDE 0.9% INJ 100 ML IV SCH ×2 (08:57→20:53)
--- NOTE | 2016-07-21 09:23 | HHI.NPPN ---
Subjective General Problems: Anemia, Edema Renal Failure: Acute Interval History He remains intubated, although awake, sedation is on hold. Renal function is better. Fluid volume status has improved. (Chiquita Sher) Review of Systems General General Remarks unable to obtain due to intubation/sedation (Chiquita Sher) Objective Data Data 07/20/16 07/21/16 19:00 07:00 Intake Total 1756 ml 2086 ml Output Total 1250 ml 2735 ml Balance 506 ml -649 ml IV Total 1007 ml 920 ml Tube Feeding 389 ml 566 ml Tube Irrigant 60 ml Other 300 ml 600 ml Output Urine Total 1150 ml 2455 ml Stool Total 100 ml 280 ml Vital Signs Date Time Temp Pulse Resp B/P Pulse Ox O2 Delivery O2 Flow Rate FiO2 07/21/16 07:27 95 40 07/21/16 06:00 78 07/21/16 04:10 96 40 07/21/16 04:00 50 07/21/16 04:00 98.7 96 21 158/88 94 07/21/16 04:00 96 07/21/16 02:00 80 07/21/16 01:19 96 40 07/21/16 00:00 85 07/21/16 00:00 98.8 85 18 119/69 96 07/21/16 00:00 50 07/20/16 22:00 84 07/20/16 20:00 50 07/20/16 20:00 98.7 91 18 132/73 100 07/20/16 20:00 80 07/20/16 19:35 99 40 07/20/16 18:37 80 07/20/16 16:13 99.1 80 18 114/68 100 07/20/16 16:13 81 07/20/16 16:13 50 07/20/16 15:48 98 40 07/20/16 14:10 97 07/20/16 12:34 100 40 07/20/16 12:00 99.1 93 18 112/66 100 07/20/16 12:00 50 07/20/16 12:00 93 07/20/16 10:27 96 50 07/20/16 10:00 104 (Chiquita Sher) -: 07/21/16 0300 07/21/16 0300 Imaging Last 72 hours Impressions Chest X-Ray 07/20/16 0600 Signed Impressions: Service Date/Time: July 02:45 - CONCLUSION: 1. Left subclavian central venous catheter out. Other lines and tubes unchanged. The 2. No significant change left greater than right bilateral airspace opacities and small left pleural effusion. Patel Sanchez MD Chest X-Ray 07/18/16 1554 Signed Impressions: Service Date/Time: Monday, July 18, 2016 15:35 - CONCLUSION: 1. Uncomplicated line placement. No evidence of pneumothorax. Elmer Martinez MD Tubes & Lines: Khan Tubes & Lines Comment NG tube, A line , rectal tube Drip Comment fentanyl, propofol (Chiquita Sher) Physical Exam General Appearance: Well Developed Appearance Remarks intubated but awake (Chiquita Sher) Eyes Eye Exam: Pupils Equal (Chiquita Sher) Throat Throat Remarks bleeding in mouth/lips, nares (Chiquita Sher) Neck Neck Exam: Neck Supple (Chiquita Sher) Pulmonary Resp Exam: Crackles, Rhonchi, Decreased Bases Resp Remarks right lung diminished lung sounds, no wheezing, bronchial left lung sounds with scattered rales (Chiquita Sher) Cardiology CV Exam: Regular, Normal Sinus Rhythm, Good Perfusion (Chiquita Sher) Gastrointestinal/Abdomen GI Exam: Soft, Non-Tender, Bowel Sounds Present, Positive Bowel Movement GI Remarks liquid stool (Chiquita Sher) Musculoskeletal MS Exam: Joints Intact, Normal Tone (Chiquita Sher) Integumentary Skin Exam: Warm, Dry Skin Remarks healing skin tears (Chiquita Sher) Extremeties Extremities Exam: Pedal Pulses Palpable, Moderate Edema Extremeties Remarks edema improving (Chiquita Sher) Neurologic Neuro Exam: Awake, Moving All Extremities Neuro Remarks opens eyes on command (Chiquita Sher) VTE Prophylaxis Device: SCDs (Chiquita hSer) Assessment/Plan Discussed Condition With: Daughter Assessment Summary: JASON/Acute Renal Failure, Fluid/Volume Overload Electrolyte Assessment: Hypernatremia Problem List: (1) Acute renal failure Plan: His creatinine was 1.13 on 07/08 he became septic around that time with BP 70/30s, started on pressors JASON due to decreased renal perfusion (sepsis), ATN. AIN is also a possibility renal function improving daily no electrolyte concerns fluid volume status improving, given another dose of Diuril today and monitor response follow urine output avoid IVF and attempt to double concentrate all fluids. daily renal panel avoid nephrotoxins (2) Sepsis Plan: due to legionella, ARDS leukocytosis improving , he is afebrile, recent blood cultures are negative he is on Zithromax, Cefepime, Levaquin, and Flagyl monitor clinically, serial chest xrays, he had bronch, awaiting pathology ID following. vent settings: 50% O2, PEEP 10 EEG: no epileptiform activity (3) Hypernatremia Plan: corrected, continue free water through tube feeding additional dose of Diuril today monitor serum sodium (4) Hyperkalemia Plan: improved, monitor for recurrence (5) Left flank pain Plan: with non obstructing stone s/p previous bilateral ureteral stent placement, may need lithotripsy and stent removal in future urology has evaluated (Chiquita Sher) Plan patient was seen and examined. Agree with above assessment and plan. Renal function continues to improve. Non oliguric. Minimize IVF. (Harvey Handley MD) Chiquita Sher Jul 21, 2016 09:23 Harvey Handley MD Jul 21, 2016 15:59
[2016-07-21] MEDS ORDERED: CHLOROTHIAZIDE SOD 500 MG VIAL IV ONE (11:00)
[2016-07-21] MEDS: AZITHROMYCIN INJ 500 MG in SODIUM CHLOR 0.9% 250 ML INJ 250 ML IV SCH (11:01)
--- NOTE | 2016-07-21 19:52 | HHI.CCPN ---
Subjective Remarks/Hospital Course The patient is a 55-year-old male with a past medical history of hypertension, renal calculi, status post bilateral ureteral stent placement in April, . He presented to [facility] ED with a three-day history of bilateral flank pain associated with fever and severe body aches. Just prior to admission, the patient had gross hematuria per his daughter and had decreased p.o. intake. The patient denied any shortness of breath or chest pain. Due to his abdominal pain, a CT scan of the abdomen and pelvis was obtained which showed renal stones and stent in place. An initial chest x-ray in the ED showed extensive airspace disease throughout the left upper lobe characteristic of pneumonia. He subsequently underwent a CT scan of the chest which showed consolidative changes in the left upper lobe along with suspicious adenopathy in the mediastinum. His initial creatinine level was 1.6 and the patient was placed on broad-spectrum antibiotics in addition to IV fluids. His laboratory data from today showed improvement of his renal function with a creatinine of 1.30 and lactic acid level measured at 1.0. [facility] was called for respiratory distress and the patient was a nonrebreather mask and transferred to [facility]. When seen in the ICU he was tachypneic, tachycardic and had a temperature of 103. The patient was subsequently intubated by myself and placed on full mechanical ventilation. A chest x-ray post intubation showed severe diffuse left lung airspace consolidation and a new mild consolation versus atelectasis in the right midlung zone. His nasal washing on arrival negative for influenza, and blood cultures and urine culture from yesterday showed no growth to date. The patient had a temperature of 102.8 earlier today. 07/09 Patient is sedated with versed, Fentanyl and intubated. Now on PRVC with RR 20, TV 550, IT:1, PEEP:15 and FIO2 100%. Afebrile. His Legionella urinary AG is positive. Renal function worse today with Cr 1.86 from 1.30 07/10: Patient remains very critical. Placed on Prone therapy yesterday for worsening respiratory status and severe hypoxia. Worsening renal function- creatinine increased from 1.8-2.8 today, urology following, will consult nephrology. Remains on 4 mics per minute of Levophed, urine output adequate 1.9 L in 24 hours. Currently on broad-spectrum antibiotics per ID on Zosyn and azithromycin Zyvox. I have added Levaquin for double coverage for Legionella 07/11: Remains intubated sedated. FiO2 at 50%. Chest x-ray shows bilaterally improving aeration. We'll reduce PEEP to 12. Urine output is adequate but creatinine has increased to 3. 07/12: Patient remains on prone therapy, remains critically ill but slowly his improving oxygenation. Currently on 10 of PEEP and 50% oxygen. Urine output is 1.7 L in 24 hours, increase in BUN to 79 creatinine is 3.2. We'll start weaning and starting today 07/13: Remains critically ill, but showing continued signs of improvement. UO >4L , Cr improved from 3.2 to 2.8. On weaning doses of Flolan. Maintaining oxygen saturation above 90% on 45% FiO2. WBC count is trending down. Will discontinue prone therapy today 07/14 Patient is off Rotoprone bed on ACV with RR 18, TV 600, PEEP: 10 and FIO2 50%. Sedated with Diprivan/Fentanyl and Versed. Afebrile.Renal function worse today with Cr: 3.17 today from 2.79 with UO 3600ml in 24 hrs. 07/15 Patient remains sedated and intubated. Afebrile. Now on ACV with RR 18, TV 600< PEEP:10 and FIO2 increased 60%. 07/16: Tmax 99.1. Tolerating tube feeding. Positive BM. Arousable on the ventilator. 07/17: Currently afebrile. Worsening chest x-ray today. Patient received fiberoptic bronchoscopy which essentially cleared secretions from left lingula/ lower lobe. Arousable and does follow commands. 07/18: Afebrile. Status post bronchoscopy yesterday. Tolerating tube feeds. Positive BM. Arousable and does follow commands. Nurses nursing "slight" tremor left upper extremity occasionally. 07/19: Sedated, orally intubated on mechanical ventilation 2/2: Remains sedated, orally intubated on mechanical ventilation. Tolerating tube feeds. PEEP remains at +10 FiO2 50% 2/3: Remains sedated, orally intubated on mechanical ventilation. Tolerating tube feeds. PEEP decreased to +8 today, FiO2 40%. Objective Vital Signs Date Time Temp Pulse Resp B/P Pulse Ox O2 Delivery O2 Flow Rate FiO2 07/21/16 18:56 96 40 07/21/16 18:01 76 07/21/16 16:15 98.5 18 144/74 Intake and Output 07/20/16 07/20/16 07/21/16 08:00 16:00 00:00 Intake Total 1531 ml 1756 ml 920 ml Output Total 1310 ml 1250 ml 1615 ml Balance 221 ml 506 ml -695 ml Result Diagram: 07/21/16 0300 07/21/16 0300 Imaging Last 24 hours Impressions Chest X-Ray 07/20/16 0600 Signed Impressions: Service Date/Time: July 02:45 - CONCLUSION: 1. Left subclavian central venous catheter out. Other lines and tubes unchanged. The 2. No significant change left greater than right bilateral airspace opacities and small left pleural effusion. Patel Sanchez MD Last Impressions Chest X-Ray 07/18/16 1554 Signed Impressions: Service Date/Time: Monday, July 18, 2016 15:35 - CONCLUSION: 1. Uncomplicated line placement. No evidence of pneumothorax. Elmer Martinez MD Soft Tissue Ultrasound 07/12/16 0000 Signed Impressions: Service Date/Time: Tuesday, July 12, 2016 19:25 - CONCLUSION: Well- defined heterogeneous mass which is nonspecific but likely represents a sebaceous cyst. Alexandro De La O MD Abdomen X-Ray 07/12/16 0000 Signed Impressions: Service Date/Time: Tuesday, July 12, 2016 16:59 - CONCLUSION: Nonspecific, benign abdomen appearance. Patel Torres MD Abdomen/Pelvis CT 07/07/16 1110 Signed Impressions: Service Date/Time: Thursday, July 07, 2016 11:31 - CONCLUSION: 1. Renal stones and stents in good position as described above. Yosvany Fuentes MD FACR Chest CT 07/07/16 0000 Signed Impressions: Service Date/Time: Thursday, July 07, 2016 16:09 - CONCLUSION: 1. Consolidative changes in the left upper lobe. There is suspicious adenopathy in the mediastinum. This may be more than an inflammatory process. 2. Bronchoscopy may be the easiest way to make a diagnosis of a neoplastic process. Yosvany Fuentes MD FACR Objective Remarks GENERAL: Patient is 55 yo critically ill intubated and sedated. SKIN: Warm and dry. No rashes. No skin breakdown HEAD: Normocephalic. EYES: No injection or drainage. NECK: Supple, trachea midline. Orally intubated. LIJ C/D/I CARDIOVASCULAR: Regular rate and rhythm S1, S2 no S4. Currently without murmurs , gallops, or rubs. RESPIRATORY: Breath sounds equal bilaterally with few coarse BS appreciated throughout the left lung alba GASTROINTESTINAL: Abdomen soft, non-tender, nondistended. MUSCULOSKELETAL: No independent peripheral edema. NEURO: Sedated, orally intubated on mechanical ventilation. On lightening sedation follows commands. Date of Insertion: Jul 18, 2016 Line: Central Venous Catheter Side: Left Location: Internal, Jugular A/P Assessment and Plan Plan Neuro/Psych: Acute toxic metabolic encephalopathy secondary to likely Legionella pneumonia -On Fentanyl at 250 g per hour and Diprivan infusion at 50 mcg/kg per minute for sedation analgesia while intubated. off Nimbex- discontinued 07/13 -Continue with thiamine 100 mg daily. Continue close neuro monitoring -Daily sedation vacation when appropriate. --Check EEG - encephalopathy - no epileptiform activity. Pulm: Acute hypoxemic respiratory failure secondary to pneumonia/community acquired ARDS ACV 18/600/8/40 Ventilator bundle Bronchodilator therapy every 6 hours and as needed -off Prone therapy for severe ARDS initiated 07/09/16. Discontinued 07/13/16 Solumederol 40mg q12, Pulm is following-Dr. Jaimes Chest x-ray shows improving left-sided lobar pneumonia Status post fiberoptic bronchoscopy 07/17. See report. Sample sent from left lower lobe no growth to date Nicotine patch 21 mg/day CV: Hypertension History dyslipidemia -Monitor HR and BP keep MAP>65mmHg. -2D echo 07/10/16-EF 60%, moderate LVH -On Hydralazine 50mg Q8, Norvasc 10mg daily, Metoprolol 50mg Q8 - On Lipitor 80 mg by mouth daily for dyslipidemia Home medication atorvastatin 80 mg daily for dyslipidemia. Home medication Norvasc 10 milligrams daily for hypertension. /renal: Urinary tract infection History of renal calculi with bilateral ureteral stent placement in April Hyperphosphatemia -Nephrology Dr. Handley following for worsening renal function. -Off Bumex. -Urology service consulted for hx flank pain and renal calculi with ureteral stent placement-CT abdomen pelvis showed stents in good position Plan for a stent removal/ureteroscopy with possible lithotripsy once patient is medically stable -Acute kidney failure could be related to severe sepsis and hypotension -Monitor renal function, Is and Os and electrolyte replacement as needed. -On Free water 300ml Q4, monitor Na level. GI: -On tube feeds- Nepro1.5@45ml/hr, Protonix 40mg IV daily for GI prophylaxis -Bowel regimen with Colace and senna. -Continue Reglan ID: Likely Legionella pneumonia -Continue with ABX per ID Continue Azithromycin IV, Levaquin IV, Cefepime 2 gm IV q24hrs and Flagyl oral - 07/17 - bronchus - ngtd - 07/16 - sputum - heavy growth - Blood cultures 2 - 07/09 - no growth - Blood Cultures 2 - 07/08 - no growth --07/08 Legionella urinary antigen positive. -07/07 BC : GPC 06/21 bottles-coag neg staph, probable contaminant - 07/07 urine no growth- Sputum - 07/07 no growth Endo: Hyperglycemia/steroid-induced -SSI with Accu-Chek q.6 hours for glycemic control Heme: Leukocytosis -Monitor CBC. GI Protein calorie malnutrition/moderate Gastroesophageal reflux disease Switch to Nepro today by nephrology. Protonix for GI prophylaxis. On Dexilant 60 mg by mouth daily at home. Colace/Senokot for bowel regimen. FEN Replace lytes as indicated Proph: -GI prophylaxis with Protonix 40 mg daily and DVT prophylaxis with SCDs and Lovenox subcu. Lines: -Peripheral IV, L IJ CVL 07/18 - present Critical Care: The total critical care time was 35 minutes. Time to perform other separately billable procedures was not included in the critical care time. Jon Walsh MD Jul 21, 2016 19:52
[2016-07-21] MEDS: ATORVASTATIN 80 MG TAB PO SCH (20:52)
[2016-07-21] MEDS: REMOVE OLD NICODERM (NICOTINE) PATCH TD SCH (20:52)
[2016-07-22] VITALS (19 sets, daily range): BP systolic 117–142; BP diastolic 63–81; PULSE 66–98; RESP 13–18; TEMP 98.3–98.9; O2SAT 91–97
[2016-07-22] MEDS: PROPOFOL 1000 MG/100 ML INJ 100 ML IV SCH ×7 (01:15→23:39)
[2016-07-22] MEDS: hydrALAZINE HCL 50 MG TAB PO SCH ×3 (01:15→17:16)
[2016-07-22] MEDS: RESP: ALBUTEROL 2.5 MG/IPRATROPIUM 0.5 MG NEB (SCH) NEB ×5 (03:14→19:38)
[2016-07-22] MEDS: FREE WATER OG-TUBE SCH ×2 (04:00)
[2016-07-22] MEDS: METOCLOPRAMIDE HCL 10 MG/2 ML VIAL IV SCH ×3 (04:05→19:51)
[2016-07-22] MEDS: methylPREDNISolone SOD SUCC 40 MG/1 ML VIAL IV PUSH SCH ×2 (04:05→17:16)
[2016-07-22 04:42] LABS: AUTOMATED NEUTROPHIL # 14.4 TH/MM3 (1.8-7.7); BASOPHIL # 0.1 TH/MM3 (0-0.2); BASOPHIL % 0.4 % (0.0-2.0); EOSINOPHIL % 0.1 % (0.0-4.0); HEMATOCRIT 27.6 % (39.0-51.0); HEMO FLAGS DIFF FINAL; LYMPH % 7.3 % (9.0-44.0); LYMPHOCYTE # 1.2 TH/MM3 (1.0-4.8); MEAN CELL VOLUME 97.1 FL (80.0-100.0); MEAN CORPUSCULAR HEMOGLOBIN 32.1 PG (27.0-34.0); MEAN CORPUSCULAR HGB CONC 33.1 % (32.0-36.0); NEUT % 87.2 % (16.0-70.0); PLATELET COUNT 283 TH/MM3 (150-450); RED BLOOD COUNT 2.85 MIL/MM3 (4.50-5.90); WHITE BLOOD COUNT 16.5 TH/MM3 (4.0-11.0)
[2016-07-22 04:58] LABS: MAGNESIUM 1.5 MG/DL (1.5-2.5); POTASSIUM 4.5 MEQ/L (3.5-5.1)
[2016-07-22] MEDS: INSULIN NovoLIN REGULAR SUPPLEMENTAL SCALE SQ SCH ×4 (06:00→18:00)
[2016-07-22] MEDS: METOPROLOL TARTRATE 25 MG TAB PO SCH ×3 (06:28→23:38)
[2016-07-22] MEDS: metroNIDAZOLE 500 MG TAB PO SCH ×3 (06:28→23:38)
--- NOTE | 2016-07-22 07:37 | HHI.CCPN ---
Subjective Remarks/Hospital Course The patient is a 55-year-old male with a past medical history of hypertension, renal calculi, status post bilateral ureteral stent placement in April, . He presented to [facility] ED with a three-day history of bilateral flank pain associated with fever and severe body aches. Just prior to admission, the patient had gross hematuria per his daughter and had decreased p.o. intake. The patient denied any shortness of breath or chest pain. Due to his abdominal pain, a CT scan of the abdomen and pelvis was obtained which showed renal stones and stent in place. An initial chest x-ray in the ED showed extensive airspace disease throughout the left upper lobe characteristic of pneumonia. He subsequently underwent a CT scan of the chest which showed consolidative changes in the left upper lobe along with suspicious adenopathy in the mediastinum. His initial creatinine level was 1.6 and the patient was placed on broad-spectrum antibiotics in addition to IV fluids. His laboratory data from today showed improvement of his renal function with a creatinine of 1.30 and lactic acid level measured at 1.0. [facility] was called for respiratory distress and the patient was a nonrebreather mask and transferred to [facility]. When seen in the ICU he was tachypneic, tachycardic and had a temperature of 103. The patient was subsequently intubated by myself and placed on full mechanical ventilation. A chest x-ray post intubation showed severe diffuse left lung airspace consolidation and a new mild consolation versus atelectasis in the right midlung zone. His nasal washing on arrival negative for influenza, and blood cultures and urine culture from yesterday showed no growth to date. The patient had a temperature of 102.8 earlier today. 07/09 Patient is sedated with versed, Fentanyl and intubated. Now on PRVC with RR 20, TV 550, IT:1, PEEP:15 and FIO2 100%. Afebrile. His Legionella urinary AG is positive. Renal function worse today with Cr 1.86 from 1.30 07/10: Patient remains very critical. Placed on Prone therapy yesterday for worsening respiratory status and severe hypoxia. Worsening renal function- creatinine increased from 1.8-2.8 today, urology following, will consult nephrology. Remains on 4 mics per minute of Levophed, urine output adequate 1.9 L in 24 hours. Currently on broad-spectrum antibiotics per ID on Zosyn and azithromycin Zyvox. I have added Levaquin for double coverage for Legionella 07/11: Remains intubated sedated. FiO2 at 50%. Chest x-ray shows bilaterally improving aeration. We'll reduce PEEP to 12. Urine output is adequate but creatinine has increased to 3. 07/12: Patient remains on prone therapy, remains critically ill but slowly his improving oxygenation. Currently on 10 of PEEP and 50% oxygen. Urine output is 1.7 L in 24 hours, increase in BUN to 79 creatinine is 3.2. We'll start weaning and starting today 07/13: Remains critically ill, but showing continued signs of improvement. UO >4L , Cr improved from 3.2 to 2.8. On weaning doses of Flolan. Maintaining oxygen saturation above 90% on 45% FiO2. WBC count is trending down. Will discontinue prone therapy today 07/14 Patient is off Rotoprone bed on ACV with RR 18, TV 600, PEEP: 10 and FIO2 50%. Sedated with Diprivan/Fentanyl and Versed. Afebrile.Renal function worse today with Cr: 3.17 today from 2.79 with UO 3600ml in 24 hrs. 07/15 Patient remains sedated and intubated. Afebrile. Now on ACV with RR 18, TV 600< PEEP:10 and FIO2 increased 60%. 07/16: Tmax 99.1. Tolerating tube feeding. Positive BM. Arousable on the ventilator. 07/17: Currently afebrile. Worsening chest x-ray today. Patient received fiberoptic bronchoscopy which essentially cleared secretions from left lingula/ lower lobe. Arousable and does follow commands. 07/18: Afebrile. Status post bronchoscopy yesterday. Tolerating tube feeds. Positive BM. Arousable and does follow commands. Nurses nursing "slight" tremor left upper extremity occasionally. 07/19: Sedated, orally intubated on mechanical ventilation 22: Remains sedated, orally intubated on mechanical ventilation. Tolerating tube feeds. PEEP remains at +10 FiO2 50% 2/3: Remains sedated, orally intubated on mechanical ventilation. Tolerating tube feeds. PEEP decreased to +8 today, FiO2 40%. 07/22 Patient is sedated with Fentanyl and Diprivan and intubated. On ACV with RR 18, TV 600, PEEP: 8 and FIO2 40%. Afebrile. Objective Vital Signs Date Time Temp Pulse Resp B/P Pulse Ox O2 Delivery O2 Flow Rate FiO2 07/22/16 04:38 95 40 07/22/16 04:00 98.9 96 18 142/72 Intake and Output 07/21/16 07/21/16 07/22/16 08:00 16:00 00:00 Intake Total 1166 ml 2013 ml 704 ml Output Total 1120 ml 2100 ml 1600 ml Balance 46 ml -87 ml -896 ml Result Diagram: 07/22/16 0400 07/22/16 0400 Other Results Laboratory Tests Test 07/22/16 04:00 White Blood Count 16.5 TH/MM3 Red Blood Count 2.85 MIL/MM3 Hemoglobin 9.1 GM/DL Hematocrit 27.6 % Mean Corpuscular Volume 97.1 FL Mean Corpuscular Hemoglobin 32.1 PG Mean Corpuscular Hemoglobin 33.1 % Concent Red Cell Distribution Width 14.0 % Platelet Count 283 TH/MM3 Mean Platelet Volume 9.9 FL Neutrophils (%) (Auto) 87.2 % Lymphocytes (%) (Auto) 7.3 % Monocytes (%) (Auto) 5.0 % Eosinophils (%) (Auto) 0.1 % Basophils (%) (Auto) 0.4 % Neutrophils # (Auto) 14.4 TH/MM3 Lymphocytes # (Auto) 1.2 TH/MM3 Monocytes # (Auto) 0.8 TH/MM3 Eosinophils # (Auto) 0.0 TH/MM3 Basophils # (Auto) 0.1 TH/MM3 CBC Comment DIFF FINAL Differential Comment Sodium Level 140 MEQ/L Potassium Level 4.5 MEQ/L Chloride Level 105 MEQ/L Carbon Dioxide Level 27.0 MEQ/L Anion Gap 8 MEQ/L Blood Urea Nitrogen 58 MG/DL Creatinine 1.48 MG/DL Estimat Glomerular Filtration 49 ML/MIN Rate Random Glucose 142 MG/DL Calcium Level 9.4 MG/DL Magnesium Level 1.5 MG/DL Imaging Last Impressions Chest X-Ray 07/20/16 0600 Signed Impressions: Service Date/Time: July 02:45 - CONCLUSION: 1. Left subclavian central venous catheter out. Other lines and tubes unchanged. The 2. No significant change left greater than right bilateral airspace opacities and small left pleural effusion. Patel Sanchez MD Soft Tissue Ultrasound 07/12/16 0000 Signed Impressions: Service Date/Time: Tuesday, July 12, 2016 19:25 - CONCLUSION: Well- defined heterogeneous mass which is nonspecific but likely represents a sebaceous cyst. Alexandro De La O MD Abdomen X-Ray 07/12/16 0000 Signed Impressions: Service Date/Time: Tuesday, July 12, 2016 16:59 - CONCLUSION: Nonspecific, benign abdomen appearance. Patel Torres MD Abdomen/Pelvis CT 07/07/16 1110 Signed Impressions: Service Date/Time: Thursday, July 07, 2016 11:31 - CONCLUSION: 1. Renal stones and stents in good position as described above. Yosvany Fuentes MD FACR Chest CT 07/07/16 0000 Signed Impressions: Service Date/Time: Thursday, July 07, 2016 16:09 - CONCLUSION: 1. Consolidative changes in the left upper lobe. There is suspicious adenopathy in the mediastinum. This may be more than an inflammatory process. 2. Bronchoscopy may be the easiest way to make a diagnosis of a neoplastic process. Yosvany Fuentes MD FACR Objective Remarks GENERAL: Patient is 55 yo critically ill intubated and sedated. SKIN: Warm and dry. No rashes. No skin breakdown HEAD: Normocephalic. EYES: No injection or drainage. NECK: Supple, trachea midline. Orally intubated. LIJ C/D/I CARDIOVASCULAR: Regular rate and rhythm S1, S2 no S4. Currently without murmurs , gallops, or rubs. RESPIRATORY: Breath sounds equal bilaterally with few coarse BS appreciated throughout the left lung alba GASTROINTESTINAL: Abdomen soft, non-tender, nondistended. MUSCULOSKELETAL: No independent peripheral edema. NEURO: Sedated, orally intubated on mechanical ventilation. On lightening sedation follows commands. Date of Insertion: Jul 18, 2016 Line: Central Venous Catheter Side: Left Location: Internal, Jugular A/P Assessment and Plan Plan Neuro/Psych: Acute toxic metabolic encephalopathy secondary to likely Legionella pneumonia -On Fentanyl at 250 g per hour and Diprivan infusion at 50 mcg/kg per minute for sedation analgesia while intubated. off Nimbex- discontinued 07/13 -Continue with thiamine 100 mg daily. Continue close neuro monitoring -Daily sedation vacation when appropriate. -- EEG 07/20 - encephalopathy - no epileptiform activity. Pulm: Acute hypoxemic respiratory failure secondary to pneumonia/community acquired ARDS ACV 18/600/8/40. Decrease PEEP 5 and start SBT daily as edmond. Ventilator bundle. Patient has been intubated since 07/08 will likely need trach and PEG tube placement next week. Bronchodilator therapy every 6 hours and as needed -off Prone therapy for severe ARDS initiated 07/09/16. Discontinued 07/13/16 Solumederol 40mg q12, Pulm is following-Dr. Jaimes Status post fiberoptic bronchoscopy 07/17. BAL: NGTD CV: Hypertension History dyslipidemia -Monitor HR and BP keep MAP>65mmHg. -2D echo 07/10/16-EF 60%, moderate LVH -On Hydralazine 50mg Q8, Norvasc 10mg daily, Metoprolol 50mg Q8 - On Lipitor 80 mg by mouth daily for dyslipidemia Home medication atorvastatin 80 mg daily for dyslipidemia. Home medication Norvasc 10 milligrams daily for hypertension. /renal: Urinary tract infection History of renal calculi with bilateral ureteral stent placement in April JASON-improving -Nephrology Dr. Handley following for worsening renal function. -Off Bumex. -Urology service consulted for hx flank pain and renal calculi with ureteral stent placement-CT abdomen pelvis showed stents in good position Plan for a stent removal/ureteroscopy with possible lithotripsy once patient is medically stable -Acute kidney failure could be related to severe sepsis and hypotension GI: -Change tube feeds- Glucerna1.5@45ml/hr, Protonix 40mg IV daily for GI prophylaxis -Bowel regimen with Colace and senna. -Continue Reglan ID: Likely Legionella pneumonia -Continue with ABX per ID Continue Azithromycin IV, Levaquin IV, Cefepime 2 gm IV q24hrs and Flagyl oral - 07/17 - bronchus - NGTD - 07/16 - sputum - heavy growth - Blood cultures 2 - 07/09 - no growth - Blood Cultures 2 - 07/08 - no growth --07/08 Legionella urinary antigen positive. -07/07 BC : GPC 06/21 bottles-coag neg staph, probable contaminant - 07/07 urine no growth- Sputum - 07/07 no growth Endo: Hyperglycemia/steroid-induced -SSI with Accu-Chek q.6 hours for glycemic control Heme: Leukocytosis -Monitor CBC. GI Protein calorie malnutrition/moderate Gastroesophageal reflux disease Switch to Nepro today by nephrology. Protonix for GI prophylaxis. On Dexilant 60 mg by mouth daily at home. Colace/Senokot for bowel regimen. FEN Replace lytes as indicated Proph: -GI prophylaxis with Protonix 40 mg daily and DVT prophylaxis with SCDs and Lovenox subcu. Lines: -Peripheral IV, L IJ CVL 07/18 - present Critical Care: The total critical care time was 30 minutes. Time to perform other separately billable procedures was not included in the critical care time. Nata Choi MD Jul 22, 2016 07:21
[2016-07-22] MEDS: ONDANSETRON HCL 4 MG/2 ML VIAL IV PUSH SCH (07:41)
[2016-07-22] MEDS: SODIUM CHLORIDE 0.9% FLUSH 5 ML FLUSH FLUSH SCH ×2 (07:42→19:52)
[2016-07-22] MEDS: LEVOFLOXACIN 750 MG PREMIX INJ 150 ML IV SCH (07:42)
[2016-07-22] MEDS: SENNOSIDES SYRUP 8.8 MG/5 ML CUP OG SCH ×2 (08:41→19:52)
[2016-07-22] MEDS: SODIUM CHLORIDE 0.9% FLUSH 5 ML FLUSH IVF SCH ×2 (08:41→08:44)
[2016-07-22] MEDS: DOCUSATE SODIUM 100 MG/10 ML UDC OG SCH ×2 (08:41→19:52)
[2016-07-22] MEDS: CEFEPIME INJ 2,000 MG in SODIUM CHLORIDE 0.9% INJ 100 ML IV SCH ×2 (08:42→23:38)
[2016-07-22] MEDS: SODIUM CHLORIDE 0.9% FLUSH 5 ML FLUSH IVF PRN (08:42)
[2016-07-22] MEDS: PANTOPRAZOLE SODIUM 40 MG VIAL IV PUSH SCH (08:42)
[2016-07-22] MEDS: ENOXAPARIN SODIUM 40 MG/0.4 ML SYRINGE SQ SCH (08:44)
[2016-07-22] MEDS: NICOTINE 21 MG/24 HR PATCH TD SCH (08:44)
[2016-07-22] MEDS: ARTIFICIAL TEARS OPTH OINT 3.5 APPLIC/3.5 GM TUBO EACH EYE SCH ×2 (08:45→19:52)
[2016-07-22] MEDS: fentaNYL DRIP 250 ML IV SCH ×3 (08:46→19:54)
[2016-07-22] MEDS: AZITHROMYCIN INJ 500 MG in SODIUM CHLOR 0.9% 250 ML INJ 250 ML IV SCH (10:26)
[2016-07-22] MEDS: THIAMINE HCL 100 MG TAB PO SCH (10:32)
--- NOTE | 2016-07-22 11:57 | HHI.NPPN ---
Subjective General Problems: Anemia, Edema Renal Failure: Acute Additional Remarks Patient intubated, opens eyes Review of Systems General General Remarks unable to obtain due to intubation/sedation Objective Data Data 07/21/16 07/22/16 19:00 07:00 Intake Total 2013 ml 1448 ml Output Total 2100 ml 3050 ml Balance -87 ml -1602 ml Intake Oral 0 ml 0 ml IV Total 1007 ml 918 ml Tube Feeding 406 ml 530 ml Other 600 ml Output Urine Total 1600 ml 2200 ml Stool Total 500 ml 850 ml Gastric Drainage Total 0 ml Vital Signs Date Time Temp Pulse Resp B/P Pulse Ox O2 Delivery O2 Flow Rate FiO2 07/22/16 11:23 95 50 07/22/16 10:00 84 07/22/16 09:25 50 07/22/16 08:00 98.8 78 18 127/71 96 07/22/16 08:00 78 07/22/16 08:00 40 07/22/16 07:28 91 40 07/22/16 06:00 66 07/22/16 04:38 95 40 07/22/16 04:00 98.9 96 18 142/72 95 07/22/16 04:00 40 07/22/16 04:00 96 07/22/16 02:00 86 07/22/16 01:03 93 40 07/22/16 00:00 71 07/22/16 00:00 98.4 71 18 120/63 93 07/22/16 00:00 40 07/21/16 22:00 83 07/21/16 20:59 96 40 07/21/16 20:00 98.8 70 18 120/66 96 07/21/16 20:00 70 07/21/16 20:00 40 07/21/16 18:56 96 40 07/21/16 18:01 76 07/21/16 16:15 40 07/21/16 16:15 80 07/21/16 16:15 98.5 75 18 144/74 96 07/21/16 14:29 91 07/21/16 12:21 95 40 07/21/16 12:00 91 07/21/16 12:00 98.0 85 18 119/72 94 07/21/16 12:00 40 -: 07/22/16 0400 07/22/16 0400 Tubes & Lines: Khan Tubes & Lines Comment NG tube, A line , rectal tube Drip Comment fentanyl, propofol Physical Exam General Appearance: Well Developed Eyes Eye Exam: Pupils Equal Neck Neck Exam: Neck Supple Pulmonary Resp Exam: Crackles, Rhonchi, Decreased Bases Cardiology CV Exam: Regular, Normal Sinus Rhythm, Good Perfusion Gastrointestinal/Abdomen GI Exam: Soft, Non-Tender, Bowel Sounds Present, Positive Bowel Movement Musculoskeletal MS Exam: Joints Intact, Normal Tone Integumentary Skin Exam: Warm, Dry Extremeties Extremities Exam: Pedal Pulses Palpable, Moderate Edema Neurologic Neuro Exam: Awake, Moving All Extremities VTE Prophylaxis Device: SCDs Assessment/Plan Discussed Condition With: Daughter Assessment Summary: JASON/Acute Renal Failure, Fluid/Volume Overload Electrolyte Assessment: Hypernatremia Problem List: (1) Acute renal failure Plan: His creatinine was 1.13 on 07/08 he became septic around that time with BP 70/30s, started on pressors JASON due to decreased renal perfusion (sepsis), ATN. AIN is also a possibility renal function improving daily - improving UOP fluid volume status improving, given another dose of follow urine output avoid IVF and attempt to double concentrate all fluids. daily renal panel avoid nephrotoxins (2) Sepsis Plan: due to legionella, ARDS leukocytosis improving , he is afebrile, recent blood cultures are negative he is on Zithromax, Cefepime, Levaquin, and Flagyl monitor clinically, serial chest xrays, he had bronch, awaiting pathology ID following. EEG: no epileptiform activity (3) Hypernatremia Plan: corrected, continue free water through tube feeding additional dose of Diuril yesterday monitor serum sodium (4) Hyperkalemia Plan: improved, monitor for recurrence (5) Left flank pain Plan: with non obstructing stone s/p previous bilateral ureteral stent placement, may need lithotripsy and stent removal in future urology has evaluated Plan Mark Henderson MD Jul 22, 2016 11:56
--- NOTE | 2016-07-22 15:10 | HHI.FPPN ---
Subjective Remarks Pt seen and examined this morning. No acute events overnight. PEEP: 8, FiO2 40% , Currently tolerating CPAP trials. Objective Vitals Vital Signs Date Time Temp Pulse Resp B/P Pulse Ox O2 Delivery O2 Flow Rate FiO2 07/22/16 14:00 85 07/22/16 12:00 50 07/22/16 12:00 98.6 98 17 117/70 97 07/22/16 12:00 98 07/22/16 11:23 95 50 07/22/16 10:00 84 07/22/16 09:25 50 07/22/16 08:00 98.8 78 18 127/71 96 07/22/16 08:00 78 07/22/16 08:00 40 07/22/16 07:28 91 40 07/22/16 06:00 66 07/22/16 04:38 95 40 07/22/16 04:00 98.9 96 18 142/72 95 07/22/16 04:00 40 07/22/16 04:00 96 07/22/16 02:00 86 07/22/16 01:03 93 40 07/22/16 00:00 71 07/22/16 00:00 98.4 71 18 120/63 93 07/22/16 00:00 40 07/21/16 22:00 83 07/21/16 20:59 96 40 07/21/16 20:00 98.8 70 18 120/66 96 07/21/16 20:00 70 07/21/16 20:00 40 07/21/16 18:56 96 40 07/21/16 18:01 76 07/21/16 16:15 40 07/21/16 16:15 80 07/21/16 16:15 98.5 75 18 144/74 96 I/O 07/21/16 07/21/16 07/21/16 07/22/16 07/22/16 07/22/16 07:00 15:00 23:00 07:00 15:00 23:00 Intake Total 1166 ml 2013 ml 704 ml 744 ml 1615 ml Output Total 1120 ml 2100 ml 1600 ml 1450 ml 1750 ml Balance 46 ml -87 ml -896 ml -706 ml -135 ml Intake Oral 0 ml 0 ml 0 ml IV Total 332 ml 1007 ml 439 ml 479 ml 1046 ml Tube Feeding 234 ml 406 ml 265 ml 265 ml 389 ml Other 600 ml 600 ml 180 ml Output Urine Total 940 ml 1600 ml 900 ml 1300 ml 1550 ml Stool Total 180 ml 500 ml 700 ml 150 ml 200 ml Gastric Drainage Total 0 ml Result Diagram: 07/22/1639907/22/16399 Objective Remarks GEN: Well-developed, well-nourished patient. Sedated and intubated on [facility] vent , supine position. Pt able to respond to commands. NECK: Supple, left internal jugular central line clean, dry, intact CV: Regular rate and rhythm LUNGS: Clear breath sounds bilaterally with good air movement. No wheezes or crackles. Vent settings: CPAP, PEEP 8 cm, FiO2 40% ABD: Soft nontender slightly distended : + urine output via [place] NEURO/PSYCH: Patient able to respond to questions with head nods, difficult to evaluate neurological status. Ext: Extremities warm and well-perfused. Date of Insertion: Jul 18, 2016 Line: Central Venous Catheter Side: Left Location: Internal, Jugular A/P Assessment and Plan 55 year old male with h/o HTN, renal calculi, s/p bilateral ureteral stent placements presented due to bilateral flank pain more significant on the left x 3 days, admitted for left-sided pneumonia, sepsis, possible UTI. Critical care was consulted on 07/08 due to acute worsening of symptoms associated with respiratory distress. Neuro: Sedated due to intubation, acute metabolic encephalopathy -On Versed, Fentanyl, and propofol for sedation. -Daily sedation vacation when appropriate -EEG mild diffuse disturbances of cerebral function. No epileptiform features. Appears essentially normal at times. Pulm: Left legionella pneumonia, severe ARDS, respiratory distress, COPD, suspicious adenopathy in the mediastinum Pulmonary consulted: appreciate recommendations * Bronchoscopy preformed on 07/17, samples were sent for culture * Bronchial washings significant for heavy growth of normal respiratory lashanda. No acid fast bacilli or fungal elements appreciated. -Currently on PEEP of 8, FiO2 of 40%, undergoing CPAP trials Imaging: * CXR 07/20: Left subclavian central venous catheter out. Other lines and tubes unchanged. No significant change, left greater than right bilateral airspace opacities and small left pleural effusion. * CXR 07/18: No significant change * CXR 07/17: Worsening consolidation and volume loss on the left * CXR 07/16: No significant change * CXR 07/15: Improved aeration of the left upper lobe compared to prior examination. Mild infiltrate right upper lobe. * CXR 07/09: Persistent severe diffuse left lung air space consolidation with likely left pleural effusion. Stable subtle airspace consolidation/opacity the in the right midlung * Chest CT: Consolidative changes in the left upper lobe. There is suspicious adenopathy in the mediastinum. This may be more than an inflammatory process Medications: * Albuterol and Duonebs * Solu-Medrol, 40mg Q12 Cardiac: HLD, HTN -ACS negative -Echo 07/10: Mild to moderate LVH, normal systolic function, ejection fraction estimated to be 60%. No regional wall motion abnormalities. Mild mitral valve regurgitation. Medications: * Amlodipine 10 mg * Hydralazine 50mg PO q8 and PRN * Metoprolol 50 mg q8 * Atorvastatin 80 mg * Labetalol 20 mg PRN : S/P bilateral ureteral stents, JASON -Creatinine continues to downtrend to 1.48 today. + UOP Urology consulted: Appreciate recommendations * Once clinical picture improves, may remove stents versus attempted ureteroscopy and laser lithotripsy * Will continue to follow Nephrology consulted: appreciate recommendations * JASON likely due to decreased renal perfusion * Minimize IVF. Double concentrate all fluids. Monitor fluid status, I&O's, electrolytes * Bump in Cr may have been due to aggressive diuresis * Free water 300 mL every 4h GI: -On tube feeds- Glucerna -Metoclopramide schedule q8h -Protonix 40mg IV daily for GI prophylaxis -Colace and senna ID: Legionella pneumonia, leukocytosis, septic shock, -Leukocytosis improving, still receiving steroids -Afebrile since 07/09 -Legionella antigen positive in urine -1 of 2 blood culture on 07/07 positive for staph S/P coagulase-negative, likely due to contamination -Repeat blood cultures, sputum cultures, urine cx NGTD -Urine eosinophils: Negative -Follow repeat Urine and sputum culture 07/16 ID consulted: Appreciate recommendations * Cefepime 07/11- * Flagyl 07/11- * Azithromycin 07/08- * Levaquin 07/10- Discontinued ABX: * Zyvox 07/09-07/11 * Zosyn 07/07-07/11 * Vancomycin 07/07-07/09, discontinued due to concern for drug fever and allergic interstitial nephritis Endo: SSI with Accu-Chek every 6h Electrolytes: Potassium within normal limits. Will continue to monitor and replete as necessary. DVT Prophylaxis - Lovenox Discharge Planning Timetable unknown. Pending respiratory improvement. mago Antonio Problem List: (1) Legionella pneumonia Status: Acute (2) Acute respiratory failure with hypoxia Status: Acute (3) Acute renal failure Status: Acute (4) Sepsis Status: Acute (5) COPD (chronic obstructive pulmonary disease) Status: Acute Nadine Aly MD R2 Jul 22, 2016 15:10
--- NOTE | 2016-07-22 17:54 | HHI.PR ---
Subjective Remarks 56 YOWM with VDRF, Pn Weaned to CPAP, tolerates Awake , follows commands Daughter at BS Objective Vital Signs Vital Signs Date Time Temp Pulse Resp B/P Pulse Ox O2 Delivery O2 Flow Rate FiO2 07/22/16 16:00 89 07/22/16 16:00 98.3 89 13 136/81 94 07/22/16 16:00 45 07/22/16 15:13 45 07/22/16 15:10 96 45 07/22/16 14:00 85 07/22/16 12:00 50 07/22/16 12:00 98.6 98 17 117/70 97 07/22/16 12:00 98 07/22/16 11:23 95 50 07/22/16 10:00 84 07/22/16 09:25 50 07/22/16 08:00 98.8 78 18 127/71 96 07/22/16 08:00 78 07/22/16 08:00 40 07/22/16 07:28 91 40 07/22/16 06:00 66 07/22/16 04:38 95 40 07/22/16 04:00 98.9 96 18 142/72 95 07/22/16 04:00 40 07/22/16 04:00 96 07/22/16 02:00 86 07/22/16 01:03 93 40 07/22/16 00:00 71 07/22/16 00:00 98.4 71 18 120/63 93 07/22/16 00:00 40 07/21/16 22:00 83 07/21/16 20:59 96 40 07/21/16 20:00 98.8 70 18 120/66 96 07/21/16 20:00 70 07/21/16 20:00 40 07/21/16 18:56 96 40 07/21/16 18:01 76 I/O 07/21/16 07/21/16 07/21/16 07/22/16 07/22/16 07/22/16 07:00 15:00 23:00 07:00 15:00 23:00 Intake Total 1166 ml 2013 ml 704 ml 744 ml 1615 ml Output Total 1120 ml 2100 ml 1600 ml 1450 ml 1750 ml Balance 46 ml -87 ml -896 ml -706 ml -135 ml Intake Oral 0 ml 0 ml 0 ml IV Total 332 ml 1007 ml 439 ml 479 ml 1046 ml Tube Feeding 234 ml 406 ml 265 ml 265 ml 389 ml Other 600 ml 600 ml 180 ml Output Urine Total 940 ml 1600 ml 900 ml 1300 ml 1550 ml Stool Total 180 ml 500 ml 700 ml 150 ml 200 ml Gastric Drainage Total 0 ml Result Diagram: 07/22/1639907/22/16399 Objective Remarks GENERAL: WBWN WM, on Vent SKIN: Warm and dry. HEAD: Normocephalic. EYES: No scleral icterus. No injection or drainage. NECK: Supple, trachea midline. No JVD or lymphadenopathy. CARDIOVASCULAR: Regular rate and rhythm without murmurs, gallops, or rubs. RESPIRATORY: Breath sounds equal bilaterally. No accessory muscle use. GASTROINTESTINAL: Abdomen soft, non-tender, nondistended. MUSCULOSKELETAL: No cyanosis, or edema. BACK: Nontender without obvious deformity. No CVA tenderness. A/P Assessment and Plan VDRF Pneumonia HTN Hyperglycemia PLAN: Cont Vent Support CPAP trial Aerosol nebs Abx Levaquin, Zithro and Cefepime DW Family at BS Maurice Muse MD Jul 22, 2016 17:54
[2016-07-22] MEDS: ATORVASTATIN 80 MG TAB PO SCH (19:52)
[2016-07-22] MEDS: REMOVE OLD NICODERM (NICOTINE) PATCH TD SCH (19:53)
[2016-07-23] VITALS (19 sets, daily range): BP systolic 120–142; BP diastolic 66–76; PULSE 79–103; RESP 13–24; TEMP 97.8–99; O2SAT 92–99
[2016-07-23] MEDS: RESP: ALBUTEROL 2.5 MG/IPRATROPIUM 0.5 MG NEB (SCH) NEB ×3 (00:20→08:21)
[2016-07-23] MEDS: hydrALAZINE HCL 50 MG TAB PO SCH ×3 (02:37→17:40)
[2016-07-23 04:01] LABS: BASOPHIL % 0.3 % (0.0-2.0); HEMATOCRIT 27.2 % (39.0-51.0); HEMO FLAGS DIFF FINAL; LYMPH % 6.3 % (9.0-44.0); MEAN CELL VOLUME 96.2 FL (80.0-100.0); MEAN CORPUSCULAR HEMOGLOBIN 32.2 PG (27.0-34.0); MEAN CORPUSCULAR HGB CONC 33.5 % (32.0-36.0); MONO % 5.5 % (0.0-8.0); NEUT % 87.9 % (16.0-70.0); PLATELET COUNT 279 TH/MM3 (150-450); RED BLOOD COUNT 2.83 MIL/MM3 (4.50-5.90); RED CELL DISTRIBUTION WIDTH 14.3 % (11.6-17.2)
[2016-07-23 04:25] LABS: BICARBONATE 27.2 MEQ/L (21.0-32.0); MAGNESIUM 1.6 MG/DL (1.5-2.5); POTASSIUM 4.8 MEQ/L (3.5-5.1)
[2016-07-23 04:50] LABS: PROTHROMBIN TIME - PATIENT 11.3 SEC (9.8-11.6)
[2016-07-23] MEDS: INSULIN NovoLIN REGULAR SUPPLEMENTAL SCALE SQ SCH ×4 (04:56→18:00)
[2016-07-23] MEDS: PROPOFOL 1000 MG/100 ML INJ 100 ML IV SCH ×6 (05:24→21:18)
[2016-07-23] MEDS: methylPREDNISolone SOD SUCC 40 MG/1 ML VIAL IV PUSH SCH ×2 (05:24→17:39)
[2016-07-23] MEDS: METOPROLOL TARTRATE 25 MG TAB PO SCH ×3 (05:24→21:18)
[2016-07-23] MEDS: METOCLOPRAMIDE HCL 10 MG/2 ML VIAL IV SCH ×3 (05:24→19:52)
[2016-07-23] MEDS: metroNIDAZOLE 500 MG TAB PO SCH ×3 (05:24→21:17)
--- NOTE | 2016-07-23 07:06 | HHI.CCPN ---
Subjective Remarks/Hospital Course The patient is a 55-year-old male with a past medical history of hypertension, renal calculi, status post bilateral ureteral stent placement in April, . He presented to [facility] ED with a three-day history of bilateral flank pain associated with fever and severe body aches. Just prior to admission, the patient had gross hematuria per his daughter and had decreased p.o. intake. The patient denied any shortness of breath or chest pain. Due to his abdominal pain, a CT scan of the abdomen and pelvis was obtained which showed renal stones and stent in place. An initial chest x-ray in the ED showed extensive airspace disease throughout the left upper lobe characteristic of pneumonia. He subsequently underwent a CT scan of the chest which showed consolidative changes in the left upper lobe along with suspicious adenopathy in the mediastinum. His initial creatinine level was 1.6 and the patient was placed on broad-spectrum antibiotics in addition to IV fluids. His laboratory data from today showed improvement of his renal function with a creatinine of 1.30 and lactic acid level measured at 1.0. [facility] was called for respiratory distress and the patient was a nonrebreather mask and transferred to [facility]. When seen in the ICU he was tachypneic, tachycardic and had a temperature of 103. The patient was subsequently intubated by myself and placed on full mechanical ventilation. A chest x-ray post intubation showed severe diffuse left lung airspace consolidation and a new mild consolation versus atelectasis in the right midlung zone. His nasal washing on arrival negative for influenza, and blood cultures and urine culture from yesterday showed no growth to date. The patient had a temperature of 102.8 earlier today. 07/09 Patient is sedated with versed, Fentanyl and intubated. Now on PRVC with RR 20, TV 550, IT:1, PEEP:15 and FIO2 100%. Afebrile. His Legionella urinary AG is positive. Renal function worse today with Cr 1.86 from 1.30 07/10: Patient remains very critical. Placed on Prone therapy yesterday for worsening respiratory status and severe hypoxia. Worsening renal function- creatinine increased from 1.8-2.8 today, urology following, will consult nephrology. Remains on 4 mics per minute of Levophed, urine output adequate 1.9 L in 24 hours. Currently on broad-spectrum antibiotics per ID on Zosyn and azithromycin Zyvox. I have added Levaquin for double coverage for Legionella 07/11: Remains intubated sedated. FiO2 at 50%. Chest x-ray shows bilaterally improving aeration. We'll reduce PEEP to 12. Urine output is adequate but creatinine has increased to 3. 07/12: Patient remains on prone therapy, remains critically ill but slowly his improving oxygenation. Currently on 10 of PEEP and 50% oxygen. Urine output is 1.7 L in 24 hours, increase in BUN to 79 creatinine is 3.2. We'll start weaning and starting today 07/13: Remains critically ill, but showing continued signs of improvement. UO >4L , Cr improved from 3.2 to 2.8. On weaning doses of Flolan. Maintaining oxygen saturation above 90% on 45% FiO2. WBC count is trending down. Will discontinue prone therapy today 07/14 Patient is off Rotoprone bed on ACV with RR 18, TV 600, PEEP: 10 and FIO2 50%. Sedated with Diprivan/Fentanyl and Versed. Afebrile.Renal function worse today with Cr: 3.17 today from 2.79 with UO 3600ml in 24 hrs. 07/15 Patient remains sedated and intubated. Afebrile. Now on ACV with RR 18, TV 600< PEEP:10 and FIO2 increased 60%. 07/16: Tmax 99.1. Tolerating tube feeding. Positive BM. Arousable on the ventilator. 07/17: Currently afebrile. Worsening chest x-ray today. Patient received fiberoptic bronchoscopy which essentially cleared secretions from left lingula/ lower lobe. Arousable and does follow commands. 07/18: Afebrile. Status post bronchoscopy yesterday. Tolerating tube feeds. Positive BM. Arousable and does follow commands. Nurses nursing "slight" tremor left upper extremity occasionally. 07/19: Sedated, orally intubated on mechanical ventilation 22: Remains sedated, orally intubated on mechanical ventilation. Tolerating tube feeds. PEEP remains at +10 FiO2 50% 2/3: Remains sedated, orally intubated on mechanical ventilation. Tolerating tube feeds. PEEP decreased to +8 today, FiO2 40%. 07/22 Patient is sedated with Fentanyl and Diprivan and intubated. On ACV with RR 18, TV 600, PEEP: 8 and FIO2 40%. Afebrile. 07/23 No acute events overnight. Sedated with Diprivan and Fentanyl. Patient tolerated CPAP for most of day yesterday. Afebrile. Objective Vital Signs Date Time Temp Pulse Resp B/P Pulse Ox O2 Delivery O2 Flow Rate FiO2 07/23/16 06:00 91 07/23/16 04:12 94 45 07/23/16 04:00 98.8 19 142/73 Intake and Output 07/22/16 07/22/16 07/23/16 08:00 16:00 00:00 Intake Total 744 ml 1615 ml 905 ml Output Total 1450 ml 1750 ml 1800 ml Balance -706 ml -135 ml -895 ml Result Diagram: 07/23/16 0330 07/23/16 0330 Other Results Laboratory Tests Test 07/23/16 03:30 White Blood Count 16.0 TH/MM3 Red Blood Count 2.83 MIL/MM3 Hemoglobin 9.1 GM/DL Hematocrit 27.2 % Mean Corpuscular Volume 96.2 FL Mean Corpuscular Hemoglobin 32.2 PG Mean Corpuscular Hemoglobin 33.5 % Concent Red Cell Distribution Width 14.3 % Platelet Count 279 TH/MM3 Mean Platelet Volume 9.8 FL Neutrophils (%) (Auto) 87.9 % Lymphocytes (%) (Auto) 6.3 % Monocytes (%) (Auto) 5.5 % Eosinophils (%) (Auto) 0.0 % Basophils (%) (Auto) 0.3 % Neutrophils # (Auto) 14.0 TH/MM3 Lymphocytes # (Auto) 1.0 TH/MM3 Monocytes # (Auto) 0.9 TH/MM3 Eosinophils # (Auto) 0.0 TH/MM3 Basophils # (Auto) 0.0 TH/MM3 CBC Comment DIFF FINAL Differential Comment Prothrombin Time 11.3 SEC Prothromb Time International 1.0 RATIO Ratio Sodium Level 139 MEQ/L Potassium Level 4.8 MEQ/L Chloride Level 105 MEQ/L Carbon Dioxide Level 27.2 MEQ/L Anion Gap 7 MEQ/L Blood Urea Nitrogen 58 MG/DL Creatinine 1.35 MG/DL Estimat Glomerular Filtration 54 ML/MIN Rate Random Glucose 131 MG/DL Calcium Level 9.2 MG/DL Phosphorus Level 4.2 MG/DL Magnesium Level 1.6 MG/DL Imaging Last Impressions Chest X-Ray 07/20/16 0600 Signed Impressions: Service Date/Time: July 02:45 - CONCLUSION: 1. Left subclavian central venous catheter out. Other lines and tubes unchanged. The 2. No significant change left greater than right bilateral airspace opacities and small left pleural effusion. Patel Sanchez MD Soft Tissue Ultrasound 07/12/16 0000 Signed Impressions: Service Date/Time: Tuesday, July 12, 2016 19:25 - CONCLUSION: Well- defined heterogeneous mass which is nonspecific but likely represents a sebaceous cyst. Alexandro De La O MD Abdomen X-Ray 07/12/16 0000 Signed Impressions: Service Date/Time: Tuesday, July 12, 2016 16:59 - CONCLUSION: Nonspecific, benign abdomen appearance. Patel Torres MD Abdomen/Pelvis CT 07/07/16 1110 Signed Impressions: Service Date/Time: Thursday, July 07, 2016 11:31 - CONCLUSION: 1. Renal stones and stents in good position as described above. Yosvany Fuentes MD FACR Chest CT 07/07/16 0000 Signed Impressions: Service Date/Time: Thursday, July 07, 2016 16:09 - CONCLUSION: 1. Consolidative changes in the left upper lobe. There is suspicious adenopathy in the mediastinum. This may be more than an inflammatory process. 2. Bronchoscopy may be the easiest way to make a diagnosis of a neoplastic process. Yosvany Fuentes MD FACR Objective Remarks GENERAL: Patient is 55 yo critically ill intubated and sedated. SKIN: Warm and dry. No rashes. No skin breakdown HEAD: Normocephalic. EYES: No injection or drainage. NECK: Supple, trachea midline. Orally intubated. LIJ C/D/I CARDIOVASCULAR: Regular rate and rhythm S1, S2 no S4. Currently without murmurs , gallops, or rubs. RESPIRATORY: Breath sounds equal bilaterally with few coarse BS appreciated throughout the left lung alba GASTROINTESTINAL: Abdomen soft, non-tender, nondistended. MUSCULOSKELETAL: No independent peripheral edema. NEURO: Sedated, orally intubated on mechanical ventilation. On lightening sedation follows commands. Date of Insertion: Jul 18, 2016 Line: Central Venous Catheter Side: Left Location: Internal, Jugular A/P Assessment and Plan Plan Neuro/Psych: Acute toxic metabolic encephalopathy secondary to likely Legionella pneumonia -On Fentanyl at 250 g per hour and Diprivan infusion at 50 mcg/kg per minute for sedation analgesia while intubated. off Nimbex- discontinued 07/13 -Continue with thiamine 100 mg daily. Continue close neuro monitoring -Daily sedation vacation when appropriate. -- EEG 07/20 - encephalopathy - no epileptiform activity. Pulm: Acute hypoxemic respiratory failure secondary to pneumonia/community acquired ARDS ACV 18/600/8/40. Decrease PEEP 5 , SBT daily as edmond. Ventilator bundle. Patient has been intubated since 07/08 will likely need trach and PEG tube placement next week if he does not get extubated in next 1-2 days. Bronchodilator therapy every 6 hours and as needed -off Prone therapy for severe ARDS initiated 07/09/16. Discontinued 07/13/16 Solumederol 40mg q12, Pulm is following-Dr. Jaimes Status post fiberoptic bronchoscopy 07/17. BAL: NGTD CV: Hypertension History dyslipidemia -Monitor HR and BP keep MAP>65mmHg. -2D echo 07/10/16-EF 60%, moderate LVH -On Hydralazine 50mg Q8, Norvasc 10mg daily, Metoprolol 50mg Q8 - On Lipitor 80 mg by mouth daily for dyslipidemia Home medication atorvastatin 80 mg daily for dyslipidemia. Home medication Norvasc 10 milligrams daily for hypertension. /renal: Urinary tract infection History of renal calculi with bilateral ureteral stent placement in April JASON-improving -Nephrology Dr. Handley following f -Urology service consulted for hx flank pain and renal calculi with ureteral stent placement-CT abdomen pelvis showed stents in good position Plan for a stent removal/ureteroscopy with possible lithotripsy once patient is medically stable -Monitor renal function, I/O's, electrolytes replaceemnt as needed. Renal function is improving with Cr: 1.35 today from 1.48 GI Protein calorie malnutrition/moderate Gastroesophageal reflux disease -Change tube feeds- Glucerna1.5@45ml/hr, Protonix 40mg IV daily for GI prophylaxis -Bowel regimen with Colace and senna. -Continue Reglan ID: Likely Legionella pneumonia -Continue with ABX per ID Continue Azithromycin IV, Levaquin IV, Cefepime 2 gm IV q24hrs and Flagyl oral - 07/17 - bronchus - NGTD - 07/16 - sputum - heavy growth - Blood cultures 2 - 07/09 - no growth - Blood Cultures 2 - 07/08 - no growth --07/08 Legionella urinary antigen positive. -07/07 BC : GPC 06/21 bottles-coag neg staph, probable contaminant - 07/07 urine no growth- Sputum - 07/07 no growth Endo: Hyperglycemia/steroid-induced -SSI with Accu-Chek q.6 hours for glycemic control Heme: Leukocytosis -Monitor CBC. Proph: -GI prophylaxis with Protonix 40 mg daily and DVT prophylaxis with SCDs and Lovenox subcu. Lines: -Peripheral IV, L IJ CVL 07/18 - present Critical Care: The total critical care time was 30 minutes. Time to perform other separately billable procedures was not included in the critical care time. Nata Choi MD Jul 23, 2016 07:06
[2016-07-23] MEDS: LEVOFLOXACIN 750 MG PREMIX INJ 150 ML IV SCH (07:30)
[2016-07-23] MEDS: SODIUM CHLORIDE 0.9% FLUSH 5 ML FLUSH IVF SCH ×2 (09:00→10:13)
--- NOTE | 2016-07-23 09:03 | HHI.FPPN ---
Subjective Remarks No acute events overnight. Overnight, pulse as high as 96, pulse ox as low as 92 on 45% FiO2, but otherwise afebrile and vital signs stable. Per respiratory therapist Shaquille, patient was on CPAP all day yesterday for about 9 hours. Plan to do another CPAP trial today. Assuming all goes well, plan for extubation Sunday or Sunday. When I passed by patient's room this morning, he gestured for me to come there. Spoke with his nurse who told me that he wants to get extubated. Asked the patient if he wants to get extubated, and he nodded his head in the affirmative. Explained to patient that extubation is a gradual process to minimize danger to him. Patient denied any headache, chest pain, shortness of breath, abdominal pain, leg pain. Objective Vitals Vital Signs Date Time Temp Pulse Resp B/P Pulse Ox O2 Delivery O2 Flow Rate FiO2 07/23/16 08:21 40 07/23/16 08:21 93 45 07/23/16 06:00 91 07/23/16 04:12 94 45 07/23/16 04:00 96 07/23/16 04:00 98.8 96 19 142/73 93 07/23/16 04:00 45 07/23/16 02:00 84 07/23/16 00:19 94 45 07/23/16 00:00 80 07/23/16 00:00 45 07/23/16 00:00 98.2 96 13 131/75 94 07/22/16 22:00 76 07/22/16 20:00 45 07/22/16 20:00 89 07/22/16 20:00 98.7 89 18 138/81 92 07/22/16 19:37 94 45 07/22/16 18:00 80 07/22/16 16:00 89 07/22/16 16:00 98.3 89 13 136/81 94 07/22/16 16:00 45 07/22/16 15:13 45 07/22/16 15:10 96 45 07/22/16 14:00 85 07/22/16 12:00 50 07/22/16 12:00 98.6 98 17 117/70 97 07/22/16 12:00 98 07/22/16 11:23 95 50 07/22/16 10:00 84 07/22/16 09:25 50 I/O 07/22/16 07/22/16 07/22/16 07/23/16 07/23/16 07/23/16 07:00 15:00 23:00 07:00 15:00 23:00 Intake Total 744 ml 1615 ml 905 ml 953 ml Output Total 1450 ml 1750 ml 1800 ml 725 ml Balance -706 ml -135 ml -895 ml 228 ml Intake Oral 0 ml 0 ml 0 ml IV Total 479 ml 1046 ml 532 ml 627 ml Tube Feeding 265 ml 389 ml 373 ml 326 ml Other 180 ml Output Urine Total 1300 ml 1550 ml 1300 ml 425 ml Stool Total 150 ml 200 ml 500 ml 300 ml Result Diagram: 07/23/1632907/23/16329 Objective Remarks GEN: Well-developed, well-nourished patient. Much more awake and alert today on mechanical ventilator, supine position. Pt able to respond to commands and questions by moving his head. NECK: Supple, left internal jugular central line clean, dry, intact CV: Regular rate and rhythm LUNGS: Clear breath sounds bilaterally with good air movement. No wheezes or crackles. Vent settings: FiO2 45% ABD: Soft nontender slightly distended : + urine output via clemens NEURO/PSYCH: Patient able to respond to questions with head nods, difficult to evaluate neurological status. Ext: Extremities warm and well-perfused. Date of Insertion: Jul 18, 2016 Line: Central Venous Catheter Side: Left Location: Internal, Jugular A/P Assessment and Plan 55 year old male with h/o HTN, renal calculi, s/p bilateral ureteral stent placements presented due to bilateral flank pain more significant on the left x 3 days, admitted for left-sided pneumonia, sepsis, possible UTI. Critical care was consulted on 07/08 due to acute worsening of symptoms associated with respiratory distress. Neuro: Sedated due to intubation, acute metabolic encephalopathy -Sedated with Diprivan and Fentanyl -Daily sedation vacation when appropriate -EEG mild diffuse disturbances of cerebral function. No epileptiform features. Appears essentially normal at times. Pulm: Left legionella pneumonia, severe ARDS, respiratory distress, COPD, suspicious adenopathy in the mediastinum Pulmonary consulted: appreciate recommendations * Bronchoscopy preformed on 07/17, samples were sent for culture * Bronchial washings significant for heavy growth of normal respiratory lashanda. No acid fast bacilli or fungal elements appreciated. -Currently on PEEP of 5-8, FiO2 of 45%, undergoing CPAP trials with plan to wean off vent and extubate in the coming days Imaging: * CXR 07/20: Left subclavian central venous catheter out. Other lines and tubes unchanged. No significant change, left greater than right bilateral airspace opacities and small left pleural effusion. * CXR 07/18: No significant change * CXR 07/17: Worsening consolidation and volume loss on the left * CXR 07/16: No significant change * CXR 07/15: Improved aeration of the left upper lobe compared to prior examination. Mild infiltrate right upper lobe. * CXR 07/09: Persistent severe diffuse left lung air space consolidation with likely left pleural effusion. Stable subtle airspace consolidation/opacity the in the right midlung * Chest CT: Consolidative changes in the left upper lobe. There is suspicious adenopathy in the mediastinum. This may be more than an inflammatory process Medications: * Albuterol and Duonebs * Solu-Medrol, 40mg Q12 Cardiac: HLD, HTN -ACS negative -Echo 07/10: Mild to moderate LVH, normal systolic function, ejection fraction estimated to be 60%. No regional wall motion abnormalities. Mild mitral valve regurgitation. Medications: * Amlodipine 10 mg * Hydralazine 50mg PO q8 and PRN * Metoprolol 50 mg q8 * Atorvastatin 80 mg * Labetalol 20 mg PRN : S/P bilateral ureteral stents, JASON -Creatinine continues to downtrend to 1.35 today. + UOP Urology consulted: Appreciate recommendations * Once clinical picture improves, may remove stents versus attempted ureteroscopy and laser lithotripsy * Will continue to follow Nephrology consulted: appreciate recommendations * JASON likely due to decreased renal perfusion * Minimize IVF. Double concentrate all fluids. Monitor fluid status, I&O's, electrolytes * Bump in Cr may have been due to aggressive diuresis * Free water 300 mL every 4h GI: -On tube feeds- Glucerna -Metoclopramide schedule q8h -Protonix 40mg IV daily for GI prophylaxis -Colace and senna ID: Legionella pneumonia, leukocytosis, septic shock, -Leukocytosis improving, still receiving steroids -Afebrile since 07/09 -Legionella antigen positive in urine -1 of 2 blood culture on 07/07 positive for staph S/P coagulase-negative, likely due to contamination -Repeat blood cultures, sputum cultures, urine cx NGTD -Urine eosinophils: Negative -Follow repeat Urine and sputum culture 07/16 ID consulted: Appreciate recommendations * Cefepime 07/11- * Flagyl 07/11- * Azithromycin 07/08- * Levaquin 07/10- Discontinued ABX: * Zyvox 07/09-07/11 * Zosyn 07/07-07/11 * Vancomycin 07/07-07/09, discontinued due to concern for drug fever and allergic interstitial nephritis Endo: SSI with Accu-Chek every 6h Electrolytes: Potassium within normal limits. Will continue to monitor and replete as necessary. DVT Prophylaxis - Lovenox Discharge Planning Timetable unknown. Pending respiratory improvement. wdw Dr. Antonio Problem List: (1) Legionella pneumonia Status: Acute (2) Acute respiratory failure with hypoxia Status: Acute (3) Acute renal failure Status: Acute (4) Sepsis Status: Acute (5) COPD (chronic obstructive pulmonary disease) Status: Acute Alexandro García MD R1 Jul 23, 2016 09:03
[2016-07-23] MEDS: DOCUSATE SODIUM 100 MG/10 ML UDC OG SCH ×2 (10:11→19:53)
[2016-07-23] MEDS: SENNOSIDES SYRUP 8.8 MG/5 ML CUP OG SCH ×2 (10:11→19:53)
[2016-07-23] MEDS: NICOTINE 21 MG/24 HR PATCH TD SCH (10:12)
[2016-07-23] MEDS: CEFEPIME INJ 2,000 MG in SODIUM CHLORIDE 0.9% INJ 100 ML IV SCH ×2 (10:12→21:17)
[2016-07-23] MEDS: THIAMINE HCL 100 MG TAB PO SCH (10:12)
[2016-07-23] MEDS: ENOXAPARIN SODIUM 40 MG/0.4 ML SYRINGE SQ SCH (10:12)
[2016-07-23] MEDS: SODIUM CHLORIDE 0.9% FLUSH 5 ML FLUSH FLUSH SCH ×2 (10:13→19:53)
[2016-07-23] MEDS: SODIUM CHLORIDE 0.9% FLUSH 5 ML FLUSH IVF PRN (10:13)
[2016-07-23] MEDS: PANTOPRAZOLE SODIUM 40 MG VIAL IV PUSH SCH (10:13)
[2016-07-23] MEDS: ARTIFICIAL TEARS OPTH OINT 3.5 APPLIC/3.5 GM TUBO EACH EYE SCH ×2 (10:13→19:52)
--- NOTE | 2016-07-23 11:12 | HHI.NPPN ---
Subjective General Problems: Anemia, Edema Renal Failure: Acute Additional Remarks Patient intubated, opens eyes. Tolerated CPAP trials yesterday Review of Systems General General Remarks unable to obtain due to intubation/sedation Objective Data Data 07/22/16 07/23/16 19:00 07:00 Intake Total 1615 ml 1858 ml Output Total 1750 ml 2525 ml Balance -135 ml -667 ml Intake Oral 0 ml IV Total 1046 ml 1159 ml Tube Feeding 389 ml 699 ml Other 180 ml Output Urine Total 1550 ml 1725 ml Stool Total 200 ml 800 ml Vital Signs Date Time Temp Pulse Resp B/P Pulse Ox O2 Delivery O2 Flow Rate FiO2 07/23/16 10:00 103 07/23/16 08:21 40 07/23/16 08:21 93 45 07/23/16 08:00 79 07/23/16 06:00 91 07/23/16 04:12 94 45 07/23/16 04:00 96 07/23/16 04:00 98.8 96 19 142/73 93 07/23/16 04:00 45 07/23/16 02:00 84 07/23/16 00:19 94 45 07/23/16 00:00 80 07/23/16 00:00 45 07/23/16 00:00 98.2 96 13 131/75 94 07/22/16 22:00 76 07/22/16 20:00 45 07/22/16 20:00 89 07/22/16 20:00 98.7 89 18 138/81 92 07/22/16 19:37 94 45 07/22/16 18:00 80 07/22/16 16:00 89 07/22/16 16:00 98.3 89 13 136/81 94 07/22/16 16:00 45 07/22/16 15:13 45 07/22/16 15:10 96 45 07/22/16 14:00 85 07/22/16 12:00 50 07/22/16 12:00 98.6 98 17 117/70 97 07/22/16 12:00 98 07/22/16 11:23 95 50 -: 07/23/16 0330 07/23/16 0330 Tubes & Lines: Khan Tubes & Lines Comment NG tube, A line , rectal tube Drip Comment fentanyl, propofol Physical Exam General Appearance: Well Developed Eyes Eye Exam: Pupils Equal Neck Neck Exam: Neck Supple Pulmonary Resp Exam: Crackles, Rhonchi, Decreased Bases Cardiology CV Exam: Regular, Normal Sinus Rhythm, Good Perfusion Gastrointestinal/Abdomen GI Exam: Soft, Non-Tender, Bowel Sounds Present, Positive Bowel Movement Musculoskeletal MS Exam: Joints Intact, Normal Tone Integumentary Skin Exam: Warm, Dry Extremeties Extremities Exam: Pedal Pulses Palpable, Moderate Edema Neurologic Neuro Exam: Awake, Moving All Extremities VTE Prophylaxis Device: SCDs Assessment/Plan Discussed Condition With: Daughter Assessment Summary: JASON/Acute Renal Failure, Fluid/Volume Overload Electrolyte Assessment: Hypernatremia Problem List: (1) Acute renal failure Plan: His creatinine was 1.13 on 07/08 he became septic around that time with BP 70/30s, started on pressors JASON due to decreased renal perfusion (sepsis), ATN. AIN is also a possibility renal function improving daily - improving UOP off diuretics. Creatinine down to 1.35 now. Continue to monitor improvement Possible extubation tomorrow. daily renal panel avoid nephrotoxins (2) Sepsis Plan: due to legionella, ARDS leukocytosis improving , he is afebrile, recent blood cultures are negative he is on Zithromax, Cefepime, Levaquin, and Flagyl monitor clinically, serial chest xrays, he had bronch, awaiting pathology ID following. EEG: no epileptiform activity (3) Hypernatremia Plan: corrected (4) Hyperkalemia Plan: improved, monitor for recurrence (5) Left flank pain Plan: with non obstructing stone s/p previous bilateral ureteral stent placement, may need lithotripsy and stent removal in future urology has evaluated Plan Mark Henderson MD Jul 23, 2016 11:12
[2016-07-23] MEDS: AZITHROMYCIN INJ 500 MG in SODIUM CHLOR 0.9% 250 ML INJ 250 ML IV SCH (12:04)
[2016-07-23] MEDS: fentaNYL DRIP 250 ML IV SCH ×2 (12:04→21:18)
--- NOTE | 2016-07-23 16:21 | HHI.PR ---
Subjective Remarks 56 YOWM with VDRF, Pn Weaned to CPAP, tolerates Awake , follows commands Daughter at BS Tries to pull ETT Objective Vital Signs Vital Signs Date Time Temp Pulse Resp B/P Pulse Ox O2 Delivery O2 Flow Rate FiO2 07/23/16 16:07 95 45 07/23/16 14:00 100 07/23/16 12:00 98.1 90 24 122/66 94 07/23/16 12:00 90 07/23/16 12:00 45 07/23/16 11:38 99 45 07/23/16 10:00 103 07/23/16 08:30 45 07/23/16 08:21 40 07/23/16 08:21 93 45 07/23/16 08:00 79 07/23/16 08:00 97.8 79 18 122/68 93 07/23/16 08:00 45 07/23/16 06:00 91 07/23/16 04:12 94 45 07/23/16 04:00 96 07/23/16 04:00 98.8 96 19 142/73 93 07/23/16 04:00 45 07/23/16 02:00 84 07/23/16 00:19 94 45 07/23/16 00:00 80 07/23/16 00:00 45 07/23/16 00:00 98.2 96 13 131/75 94 07/22/16 22:00 76 07/22/16 20:00 45 07/22/16 20:00 89 07/22/16 20:00 98.7 89 18 138/81 92 07/22/16 19:37 94 45 07/22/16 18:00 80 I/O 07/22/16 07/22/16 07/22/16 07/23/16 07/23/16 07/23/16 07:00 15:00 23:00 07:00 15:00 23:00 Intake Total 744 ml 1615 ml 905 ml 953 ml 1432 ml Output Total 1450 ml 1750 ml 1800 ml 725 ml 2450 ml Balance -706 ml -135 ml -895 ml 228 ml -1018 ml Intake Oral 0 ml 0 ml 0 ml IV Total 479 ml 1046 ml 532 ml 627 ml 1022 ml Tube Feeding 265 ml 389 ml 373 ml 326 ml 410 ml Other 180 ml Output Urine Total 1300 ml 1550 ml 1300 ml 425 ml 1750 ml Stool Total 150 ml 200 ml 500 ml 300 ml 700 ml Result Diagram: 07/23/1632907/23/16329 Objective Remarks GENERAL: WBWN WM, on Vent SKIN: Warm and dry. HEAD: Normocephalic. EYES: No scleral icterus. No injection or drainage. NECK: Supple, trachea midline. No JVD or lymphadenopathy. CARDIOVASCULAR: Regular rate and rhythm without murmurs, gallops, or rubs. RESPIRATORY: Breath sounds equal bilaterally. No accessory muscle use. GASTROINTESTINAL: Abdomen soft, non-tender, nondistended. MUSCULOSKELETAL: No cyanosis, or edema. BACK: Nontender without obvious deformity. No CVA tenderness. A/P Assessment and Plan VDRF Pneumonia HTN Hyperglycemia PLAN: Cont Vent Support CPAP trial Aerosol nebs Abx Levaquin, Zithro and Cefepime DW Family at Plans for extubation in AM will FU in AM. Maurice Muse MD Jul 23, 2016 16:21
[2016-07-23] MEDS: REMOVE OLD NICODERM (NICOTINE) PATCH TD SCH (19:53)
[2016-07-23] MEDS: ATORVASTATIN 80 MG TAB PO SCH (19:53)
[2016-07-23] MEDS: MORPHINE SULFATE 4 MG/ML INJ IV PRN (21:41)
[2016-07-24] VITALS (18 sets, daily range): BP systolic 90–152; BP diastolic 56–84; PULSE 65–100; RESP 18–32; TEMP 98.1–98.8; O2SAT 92–99
[2016-07-24] MEDS: hydrALAZINE HCL 50 MG TAB PO SCH ×3 (01:14→18:00)
[2016-07-24] MEDS: PROPOFOL 1000 MG/100 ML INJ 100 ML IV SCH ×2 (01:14→06:03)
[2016-07-24] MEDS: methylPREDNISolone SOD SUCC 40 MG/1 ML VIAL IV PUSH SCH ×2 (03:38→17:00)
[2016-07-24] MEDS: METOCLOPRAMIDE HCL 10 MG/2 ML VIAL IV SCH ×3 (03:38→19:43)
[2016-07-24] MEDS: INSULIN NovoLIN REGULAR SUPPLEMENTAL SCALE SQ SCH ×4 (06:00→17:05)
[2016-07-24] MEDS: METOPROLOL TARTRATE 25 MG TAB PO SCH ×3 (06:02→19:43)
[2016-07-24] MEDS: metroNIDAZOLE 500 MG TAB PO SCH (06:02)
[2016-07-24] MEDS: fentaNYL DRIP 250 ML IV SCH (06:03)
--- NOTE | 2016-07-24 07:46 | HHI.CCPN ---
Subjective Remarks/Hospital Course The patient is a 55-year-old male with a past medical history of hypertension, renal calculi, status post bilateral ureteral stent placement in April, . He presented to [facility] ED with a three-day history of bilateral flank pain associated with fever and severe body aches. Just prior to admission, the patient had gross hematuria per his daughter and had decreased p.o. intake. The patient denied any shortness of breath or chest pain. Due to his abdominal pain, a CT scan of the abdomen and pelvis was obtained which showed renal stones and stent in place. An initial chest x-ray in the ED showed extensive airspace disease throughout the left upper lobe characteristic of pneumonia. He subsequently underwent a CT scan of the chest which showed consolidative changes in the left upper lobe along with suspicious adenopathy in the mediastinum. His initial creatinine level was 1.6 and the patient was placed on broad-spectrum antibiotics in addition to IV fluids. His laboratory data from today showed improvement of his renal function with a creatinine of 1.30 and lactic acid level measured at 1.0. [facility] was called for respiratory distress and the patient was a nonrebreather mask and transferred to [facility]. When seen in the ICU he was tachypneic, tachycardic and had a temperature of 103. The patient was subsequently intubated by myself and placed on full mechanical ventilation. A chest x-ray post intubation showed severe diffuse left lung airspace consolidation and a new mild consolation versus atelectasis in the right midlung zone. His nasal washing on arrival negative for influenza, and blood cultures and urine culture from yesterday showed no growth to date. The patient had a temperature of 102.8 earlier today. 07/09 Patient is sedated with versed, Fentanyl and intubated. Now on PRVC with RR 20, TV 550, IT:1, PEEP:15 and FIO2 100%. Afebrile. His Legionella urinary AG is positive. Renal function worse today with Cr 1.86 from 1.30 07/10: Patient remains very critical. Placed on Prone therapy yesterday for worsening respiratory status and severe hypoxia. Worsening renal function- creatinine increased from 1.8-2.8 today, urology following, will consult nephrology. Remains on 4 mics per minute of Levophed, urine output adequate 1.9 L in 24 hours. Currently on broad-spectrum antibiotics per ID on Zosyn and azithromycin Zyvox. I have added Levaquin for double coverage for Legionella 07/11: Remains intubated sedated. FiO2 at 50%. Chest x-ray shows bilaterally improving aeration. We'll reduce PEEP to 12. Urine output is adequate but creatinine has increased to 3. 07/12: Patient remains on prone therapy, remains critically ill but slowly his improving oxygenation. Currently on 10 of PEEP and 50% oxygen. Urine output is 1.7 L in 24 hours, increase in BUN to 79 creatinine is 3.2. We'll start weaning and starting today 07/13: Remains critically ill, but showing continued signs of improvement. UO >4L , Cr improved from 3.2 to 2.8. On weaning doses of Flolan. Maintaining oxygen saturation above 90% on 45% FiO2. WBC count is trending down. Will discontinue prone therapy today 07/14 Patient is off Rotoprone bed on ACV with RR 18, TV 600, PEEP: 10 and FIO2 50%. Sedated with Diprivan/Fentanyl and Versed. Afebrile.Renal function worse today with Cr: 3.17 today from 2.79 with UO 3600ml in 24 hrs. 07/15 Patient remains sedated and intubated. Afebrile. Now on ACV with RR 18, TV 600< PEEP:10 and FIO2 increased 60%. 07/16: Tmax 99.1. Tolerating tube feeding. Positive BM. Arousable on the ventilator. 07/17: Currently afebrile. Worsening chest x-ray today. Patient received fiberoptic bronchoscopy which essentially cleared secretions from left lingula/ lower lobe. Arousable and does follow commands. 07/18: Afebrile. Status post bronchoscopy yesterday. Tolerating tube feeds. Positive BM. Arousable and does follow commands. Nurses nursing "slight" tremor left upper extremity occasionally. 07/19: Sedated, orally intubated on mechanical ventilation 22: Remains sedated, orally intubated on mechanical ventilation. Tolerating tube feeds. PEEP remains at +10 FiO2 50% 2/3: Remains sedated, orally intubated on mechanical ventilation. Tolerating tube feeds. PEEP decreased to +8 today, FiO2 40%. 07/22 Patient is sedated with Fentanyl and Diprivan and intubated. On ACV with RR 18, TV 600, PEEP: 8 and FIO2 40%. Afebrile. 07/23 No acute events overnight. Sedated with Diprivan and Fentanyl. Patient tolerated CPAP for most of day yesterday. Afebrile. 07/24 Patient remains sedated and intubated. Tolerated CPAP trials for several hrs yesterday. Objective Vital Signs Date Time Temp Pulse Resp B/P Pulse Ox O2 Delivery O2 Flow Rate FiO2 07/24/16 07: 40 07/24/16 07:17 96 07/24/16 06:00 82 07/24/16 04:00 98.5 19 141/83 Intake and Output 07/23/16 07/23/16 07/24/16 08:00 16:00 00:00 Intake Total 953 ml 1432 ml 877 ml Output Total 725 ml 2450 ml 1600 ml Balance 228 ml -1018 ml -723 ml Result Diagram: 07/23/16 0330 07/23/16 0330 Imaging Last Impressions Chest X-Ray 07/20/16 0600 Signed Impressions: Service Date/Time: July 02:45 - CONCLUSION: 1. Left subclavian central venous catheter out. Other lines and tubes unchanged. The 2. No significant change left greater than right bilateral airspace opacities and small left pleural effusion. Patel Sanchez MD Soft Tissue Ultrasound 07/12/16 0000 Signed Impressions: Service Date/Time: Tuesday, July 12, 2016 19:25 - CONCLUSION: Well- defined heterogeneous mass which is nonspecific but likely represents a sebaceous cyst. Alexandro De La O MD Abdomen X-Ray 07/12/16 0000 Signed Impressions: Service Date/Time: Tuesday, July 12, 2016 16:59 - CONCLUSION: Nonspecific, benign abdomen appearance. Patel Torres MD Abdomen/Pelvis CT 07/07/16 1110 Signed Impressions: Service Date/Time: Thursday, July 07, 2016 11:31 - CONCLUSION: 1. Renal stones and stents in good position as described above. Yosvany Fuentes MD FACR Chest CT 07/07/16 0000 Signed Impressions: Service Date/Time: Thursday, July 07, 2016 16:09 - CONCLUSION: 1. Consolidative changes in the left upper lobe. There is suspicious adenopathy in the mediastinum. This may be more than an inflammatory process. 2. Bronchoscopy may be the easiest way to make a diagnosis of a neoplastic process. Yosvany Fuentes MD FACR Objective Remarks GENERAL: Patient is 55 yo critically ill intubated and sedated. SKIN: Warm and dry. No rashes. No skin breakdown HEAD: Normocephalic. EYES: No injection or drainage. NECK: Supple, trachea midline. Orally intubated. LIJ C/D/I CARDIOVASCULAR: Regular rate and rhythm S1, S2 no S4. Currently without murmurs , gallops, or rubs. RESPIRATORY: Breath sounds equal bilaterally with few coarse BS appreciated throughout the left lung alba GASTROINTESTINAL: Abdomen soft, non-tender, nondistended. MUSCULOSKELETAL: No independent peripheral edema. NEURO: Sedated, orally intubated on mechanical ventilation. On lightening sedation follows commands. Date of Insertion: Jul 18, 2016 Line: Central Venous Catheter Side: Left Location: Internal, Jugular A/P Assessment and Plan Plan Neuro/Psych: Acute toxic metabolic encephalopathy secondary to likely Legionella pneumonia -On Fentanyl at 250 g per hour and Diprivan infusion at 50 mcg/kg per minute for sedation analgesia while intubated. off Nimbex- discontinued 07/13 -Continue with thiamine 100 mg daily. Continue close neuro monitoring -Daily sedation vacation when appropriate. -- EEG 2/2 - encephalopathy - no epileptiform activity. Pulm: Acute hypoxemic respiratory failure secondary to pneumonia/community acquired ARDS ACV 18/600/8/40 , SBT daily as edmond and possible extubation today. will check CXR Ventilator bundle. Patient has been intubated since 07/08 will likely need trach and PEG tube placement next week if he does not get extubated in next 1-2 days. Bronchodilator therapy every 6 hours and as needed -off Prone therapy for severe ARDS initiated 07/09/16. Discontinued 07/13/16 Solumederol 40mg q12, Pulm is following-Dr. Jaimes Status post fiberoptic bronchoscopy 07/17. BAL: NGTD CV: Hypertension History dyslipidemia -Monitor HR and BP keep MAP>65mmHg. -2D echo 07/10/16-EF 60%, moderate LVH -On Hydralazine 50mg Q8, Norvasc 10mg daily, Metoprolol 50mg Q8 - On Lipitor 80 mg by mouth daily for dyslipidemia Home medication atorvastatin 80 mg daily for dyslipidemia. Home medication Norvasc 10 milligrams daily for hypertension. /renal: Urinary tract infection History of renal calculi with bilateral ureteral stent placement in April JASON-improving -Nephrology Dr. Handley following f -Urology service consulted for hx flank pain and renal calculi with ureteral stent placement-CT abdomen pelvis showed stents in good position Plan for a stent removal/ureteroscopy with possible lithotripsy once patient is medically stable -Monitor renal function, I/O's, electrolytes replacement as needed. Follow up on BMP, UO: 4225ml in 24 hrs GI Protein calorie malnutrition/moderate Gastroesophageal reflux disease -Change tube feeds- Glucerna1.5@45ml/hr, Protonix 40mg IV daily for GI prophylaxis -Bowel regimen with Colace and senna. -Continue Reglan ID: Likely Legionella pneumonia -Continue with ABX per ID Continue Azithromycin IV, Levaquin IV, Cefepime 2 gm IV q24hrs and Flagyl oral - 07/17 - bronchus - NGTD - 07/16 - sputum - heavy growth - Blood cultures 2 - 07/09 - no growth - Blood Cultures 2 - 07/08 - no growth --07/08 Legionella urinary antigen positive. -07/07 BC : GPC 06/21 bottles-coag neg staph, probable contaminant - 07/07 urine no growth- Sputum - 07/07 no growth Endo: Hyperglycemia/steroid-induced -SSI with Accu-Chek q.6 hours for glycemic control Heme: Leukocytosis -Monitor CBC. Proph: -GI prophylaxis with Protonix 40 mg daily and DVT prophylaxis with SCDs and Lovenox subcu. Lines: -Peripheral IV, L IJ CVL 07/18 - present Follow up on labs Critical Care: The total critical care time was 30 minutes. Time to perform other separately billable procedures was not included in the critical care time. Nata Choi MD Jul 24, 2016 07:46
--- NOTE | 2016-07-24 08:25 | HHI.IDPN ---
Subjective Subjective Remarks Mr. Ambrocio is a 55-year-old male with past medical history significant for renal calculi status post bilateral ureteral stent placements as well as hypertension who presented to the emergency department to bilateral flank pain for the past 3 days. He also had shortness of breath and chest discomfort on admission. UA with some pyuria. UC negative. CT A/P stent ok, no hydro. ID following for sepsis, pneumonia, legionella antigen positive, possible legionellosis with secondary bacterial infection. Overnight events reviewed with RN. Afebrile BP OK Intubated, awake, Follows simple commands UO ok No rash Antibiotics Azithro IV Levaquin IV Cefepime IV Flagyl oral Lines Line sites with no e/o infection Past Medical History reviewed. 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 Vital Signs Date Time Temp Pulse Resp B/P Pulse Ox O2 Delivery O2 Flow Rate FiO2 07/24/16 07:17 40 07/24/16 07:17 96 40 07/24/16 06:00 82 07/24/16 04:07 94 45 07/24/16 04:00 98.5 83 19 141/83 99 07/24/16 04:00 45 07/24/16 04:00 83 07/24/16 02:00 78 07/24/16 00:10 93 45 07/24/16 00:00 91 07/24/16 00:00 45 07/24/16 00:00 98.3 91 18 145/79 93 07/23/16 22:00 99 07/23/16 20:04 94 45 07/23/16 20:00 45 07/23/16 20:00 87 07/23/16 20:00 99.0 87 19 120/75 94 07/23/16 18:04 94 45 07/23/16 18:00 88 07/23/16 16:07 95 45 07/23/16 16:00 92 07/23/16 16:00 45 07/23/16 16:00 98.3 92 20 136/76 92 07/23/16 14:00 100 2/5/17 12:00 98.1 90 24 122/66 94 07/23/16 12:00 90 07/23/16 12:00 45 07/23/16 11:38 99 45 07/23/16 10:00 103 07/23/16 08:30 45 07/23/16 07/23/16 07/24/16 15:00 23:00 07:00 Intake Total 1432 ml 877 ml 730 ml Output Total 2450 ml 1600 ml 1150 ml Balance -1018 ml -723 ml -420 ml Intake Oral 0 ml 0 ml IV Total 1022 ml 548 ml 439 ml Tube Feeding 410 ml 329 ml 291 ml Output Urine Total 1750 ml 1400 ml 1075 ml Stool Total 700 ml 200 ml 75 ml . Laboratory Tests Test 07/23/16 03:30 White Blood Count 16.0 TH/MM3 Red Blood Count 2.83 MIL/MM3 Hemoglobin 9.1 GM/DL Hematocrit 27.2 % Mean Corpuscular Volume 96.2 FL Mean Corpuscular Hemoglobin 32.2 PG Mean Corpuscular Hemoglobin 33.5 % Concent Red Cell Distribution Width 14.3 % Platelet Count 279 TH/MM3 Mean Platelet Volume 9.8 FL Neutrophils (%) (Auto) 87.9 % Lymphocytes (%) (Auto) 6.3 % Monocytes (%) (Auto) 5.5 % Eosinophils (%) (Auto) 0.0 % Basophils (%) (Auto) 0.3 % Neutrophils # (Auto) 14.0 TH/MM3 Lymphocytes # (Auto) 1.0 TH/MM3 Monocytes # (Auto) 0.9 TH/MM3 Eosinophils # (Auto) 0.0 TH/MM3 Basophils # (Auto) 0.0 TH/MM3 CBC Comment DIFF FINAL Differential Comment Laboratory Tests Test 07/23/16 03:30 Sodium Level 139 MEQ/L Potassium Level 4.8 MEQ/L Chloride Level 105 MEQ/L Carbon Dioxide Level 27.2 MEQ/L Anion Gap 7 MEQ/L Blood Urea Nitrogen 58 MG/DL Creatinine 1.35 MG/DL Estimat Glomerular Filtration 54 ML/MIN Rate Random Glucose 131 MG/DL Calcium Level 9.2 MG/DL Phosphorus Level 4.2 MG/DL Magnesium Level 1.6 MG/DL Imaging Chest X-Ray 07/16/16 0000 Signed Impressions: Service Date/Time: Saturday, July 16, 2016 02:47 - CONCLUSION: No significant change has occurred. Andi Parra MD Chest X-Ray 07/15/16 0000 Signed Impressions: Service Date/Time: Friday, July 15, 2016 07:05 - CONCLUSION: 1. Improved aeration of the left upper lung compared to the prior examination. 2. Mild infiltrate right upper lung. Elgin Levin MD Chest X-Ray 07/15/16 0000 Signed Impressions: Service Date/Time: Friday, July 15, 2016 07:05 - CONCLUSION: 1. Improved aeration of the left upper lung compared to the prior examination. 2. Mild infiltrate right upper lung. Elgin Levin MD Soft Tissue Ultrasound 07/12/16 0000 Signed Impressions: Service Date/Time: Tuesday, July 12, 2016 19:25 - CONCLUSION: Well- defined heterogeneous mass which is nonspecific but likely represents a sebaceous cyst. Alexandro De La O MD Abdomen X-Ray 07/12/16 0000 Signed Impressions: Service Date/Time: Tuesday, July 12, 2016 16:59 - CONCLUSION: Nonspecific, benign abdomen appearance. Patel Torres MD Abdomen/Pelvis CT 07/07/16 1110 Signed Impressions: Service Date/Time: Thursday, July 07, 2016 11:31 - CONCLUSION: 1. Renal stones and stents in good position as described above. Yosvany Fuentes MD FACR Chest CT 07/07/16 0000 Signed Impressions: Service Date/Time: Thursday, July 07, 2016 16:09 - CONCLUSION: 1. Consolidative changes in the left upper lobe. There is suspicious adenopathy in the mediastinum. This may be more than an inflammatory process. 2. Bronchoscopy may be the easiest way to make a diagnosis of a neoplastic process. Yosvany Fuentes MD FACR Last Impressions Chest X-Ray 07/09/16 0000 Signed Impressions: Service Date/Time: Saturday, July 09, 2016 10:44 - CONCLUSION: Left subclavian central line tip is in the superior aspect of the SVC. No pneumothorax is visualized. Otherwise, stable exam. Patel Palmer MD Abdomen/Pelvis CT 07/07/16 1110 Signed Impressions: Service Date/Time: Thursday, July 07, 2016 11:31 - CONCLUSION: 1. Renal stones and stents in good position as described above. Yosvany Fuentes MD FACR Chest CT 07/07/16 0000 Signed Impressions: Service Date/Time: Thursday, July 07, 2016 16:09 - CONCLUSION: 1. Consolidative changes in the left upper lobe. There is suspicious adenopathy in the mediastinum. This may be more than an inflammatory process. 2. Bronchoscopy may be the easiest way to make a diagnosis of a neoplastic process. Yosvany Fuentes MD FACR Physical Exam GENERAL: Obese. Well nourished. On the vent., NAD SKIN: No rashes. Cool and dry. HEENT: [place] conjunctiva, no icterus, orally intubated. CARDIOVASCULAR: HS audible. No murmur appreciated. RESPIRATORY: Breath sounds diminished bilaterally posteriorly. GASTROINTESTINAL: soft, NT MUSCULOSKELETAL: Edema hands and feet NEUROLOGICAL: Sedated. Psych could not be assessed IV line sites with no evidence of infection. Assessment & Plan Remarks Severe sepsis present on admission(criteria explained in history of present illness) Pneumonia present on admission (community acquired, atypical, possible component of healthcare associated pneumonia) Likely Legionella Pneumonia with ARDS Bilateral ureteral stents. Acute renal failure present on admission likely sepsis, AIN, ATN. Acute metabolic encephalopathy: likely secondary to sepsis Leukocytosis, persistent. Recommendations: Continue Azithromycin IV (will likely need 3 weeks or more) Continue Levaquin IV (will likely need 3 weeks or more) DC Cefepime IV DC Flagyl Follow cultures Follow clinically. d/w RN d/w pts daughter Brenda Walsh MD Jul 24, 2016 08:24
--- NOTE | 2016-07-24 08:45 | RADRPT ---
EXAM DATE/TIME: 07/24/2016 07:46 [place] COMPARISON: CHEST SINGLE AP, July 20, 2016, 2:45. INDICATIONS: Sepsis, pneumonia. MEDICAL HISTORY: Sepsis. SURGICAL HISTORY: None. ENCOUNTER: Subsequent ACUITY: 2 weeks PAIN SCORE: Non-responsive. LOCATION: Chest FINDINGS: An endotracheal tube has its tip 2 cm above the farooq. A nasogastric tube has its tip below diaphra gm. A left internal jugular central line has its tip in the superior vena cava. No pneumothorax is noted. Scattered patchiness is noted within the left lung consistent with possible pneumonia and/or atelectasis. Right perihilar atelectasis is noted. The heart is stable. CONCLUSION: 1. Scattered patchiness within the left lung consistent with atelectasis and/or pneumonia. Clinical correlation is recommended. 2. Right perihilar atelectasis. 3. Multiple tubes and lines are in good positions. Elbert Hector MD on July 24, 2016 at 8:35 Board Certified Radiologist. This report was verified electronically.
[2016-07-24] MEDS: SODIUM CHLORIDE 0.9% FLUSH 5 ML FLUSH IVF SCH ×2 (09:00)
[2016-07-24] MEDS: ARTIFICIAL TEARS OPTH OINT 3.5 APPLIC/3.5 GM TUBO EACH EYE SCH ×2 (09:00→21:00)
[2016-07-24] MEDS: SODIUM CHLORIDE 0.9% FLUSH 5 ML FLUSH FLUSH SCH ×2 (09:00→19:42)
[2016-07-24] MEDS: NICOTINE 21 MG/24 HR PATCH TD SCH (09:11)
[2016-07-24] MEDS: DOCUSATE SODIUM 100 MG/10 ML UDC OG SCH ×2 (09:12→19:42)
[2016-07-24] MEDS: LEVOFLOXACIN 750 MG PREMIX INJ 150 ML IV SCH (09:12)
[2016-07-24] MEDS: PANTOPRAZOLE SODIUM 40 MG VIAL IV PUSH SCH (09:13)
[2016-07-24] MEDS: SENNOSIDES SYRUP 8.8 MG/5 ML CUP OG SCH ×2 (09:13→19:42)
[2016-07-24] MEDS: ONDANSETRON HCL 4 MG/2 ML VIAL IV PUSH SCH (09:14)
[2016-07-24] MEDS: ENOXAPARIN SODIUM 40 MG/0.4 ML SYRINGE SQ SCH (09:14)
[2016-07-24 09:44] LABS: AUTOMATED NEUTROPHIL # 13.8 TH/MM3 (1.8-7.7); BASOPHIL # 0.1 TH/MM3 (0-0.2); BASOPHIL % 0.3 % (0.0-2.0); EOSINOPHIL % 0.1 % (0.0-4.0); HEMATOCRIT 28.2 % (39.0-51.0); HEMO FLAGS DIFF FINAL; LYMPH % 6.3 % (9.0-44.0); MEAN CELL VOLUME 97.2 FL (80.0-100.0); MEAN CORPUSCULAR HEMOGLOBIN 31.5 PG (27.0-34.0); MEAN CORPUSCULAR HGB CONC 32.5 % (32.0-36.0); NEUT % 88.3 % (16.0-70.0); PLATELET COUNT 293 TH/MM3 (150-450); WHITE BLOOD COUNT 15.6 TH/MM3 (4.0-11.0)
[2016-07-24 10:13] LABS: BICARBONATE 28.5 MEQ/L (21.0-32.0); MAGNESIUM 1.6 MG/DL (1.5-2.5); POTASSIUM 4.7 MEQ/L (3.5-5.1)
--- NOTE | 2016-07-24 10:29 | HHI.NPPN ---
Subjective General Problems: Anemia, Edema Renal Failure: Acute Interval History He is awake, intubated, but tolerating CPAP trials. Potential extubation today. Renal labs in progress. Good urine output. (Chiquita Sher) Review of Systems General General Remarks unable to obtain due to intubation/sedation (Chiquita Sher) Objective Data Data 07/23/16 07/24/16 19:00 07:00 Intake Total 1432 ml 1607 ml Output Total 2450 ml 2750 ml Balance -1018 ml -1143 ml Intake Oral 0 ml IV Total 1022 ml 987 ml Tube Feeding 410 ml 620 ml Output Urine Total 1750 ml 2475 ml Stool Total 700 ml 275 ml Vital Signs Date Time Temp Pulse Resp B/P Pulse Ox O2 Delivery O2 Flow Rate FiO2 07/24/16 09:34 97 40 07/24/16 07:17 40 07/24/16 07:17 96 40 07/24/16 06:00 82 07/24/16 04:07 94 45 07/24/16 04:00 98.5 83 19 141/83 99 07/24/16 04:00 45 07/24/16 04:00 83 07/24/16 02:00 78 07/24/16 00:10 93 45 07/24/16 00:00 91 07/24/16 00:00 45 07/24/16 00:00 98.3 91 18 145/79 93 07/23/16 22:00 99 07/23/16 20:04 94 45 07/23/16 20:00 45 07/23/16 20:00 87 07/23/16 20:00 99.0 87 19 120/75 94 07/23/16 18:04 94 45 07/23/16 18:00 88 07/23/16 16:07 95 45 07/23/16 16:00 92 07/23/16 16:00 45 07/23/16 16:00 98.3 92 20 136/76 92 07/23/16 14:00 100 07/23/16 12:00 98.1 90 24 122/66 94 07/23/16 12:00 90 07/23/16 12:00 45 07/23/16 11:38 99 45 07/23/16 10:00 103 (Chiquita Sher) -: 07/23/16 0330 07/23/16 0330 Imaging Last 72 hours Impressions Chest X-Ray 07/24/16 0000 Signed Impressions: Service Date/Time: Sunday, July 24, 2016 07:46 - CONCLUSION: 1. Scattered patchiness within the left lung consistent with atelectasis and/or pneumonia. Clinical correlation is recommended. 2. Right perihilar atelectasis. 3. Multiple tubes and lines are in good positions. Elbert Hector MD Tubes & Lines: [place] Tubes & Lines Comment NG tube, rectal tube Drip Comment fentanyl (Chiquita Sher) Physical Exam General Appearance: Well Developed Appearance Remarks intubated but awake (Chiquita Sher) Eyes Eye Exam: Pupils Equal (Chiquita Sher) Throat Throat Remarks bleeding in mouth/lips, nares (Chiquita Sher) Neck Neck Exam: Neck Supple (Chiquita Sher) Pulmonary Resp Exam: Crackles, Rhonchi, Decreased Bases Resp Remarks right lung diminished lung sounds, no wheezing, bronchial left lung sounds with scattered rales (Chiquita Sher) Cardiology CV Exam: Regular, Normal Sinus Rhythm, Good Perfusion (Chiquita Sher) Gastrointestinal/Abdomen GI Exam: Soft, Non-Tender, Bowel Sounds Present, Positive Bowel Movement ( Chiquita Sher) Musculoskeletal MS Exam: Joints Intact, Normal Tone (Chiquita Sher) Integumentary Skin Exam: Clear, Warm, Dry, Intact (Chiquita Sher) Extremeties Extremities Exam: Pedal Pulses Palpable, Moderate Edema Extremeties Remarks edema improving (Chiquita Sher) Neurologic Neuro Exam: Awake, Moving All Extremities (Chiquita Sher) VTE Prophylaxis Device: SCDs (Chiquita Sher) Assessment/Plan Discussed Condition With: Daughter Assessment Summary: JASON/Acute Renal Failure, Fluid/Volume Overload Electrolyte Assessment: Hypernatremia Problem List: (1) Acute renal failure Plan: His creatinine was 1.13 on 07/08 he became septic around that time with BP 70/30s, started on pressors JASON due to decreased renal perfusion (sepsis), ATN. AIN is also a possibility renal function improving daily, today's labs in process excellent urine output with clemens daily renal panel avoid nephrotoxins monitor fluid volume status, diuretics on hold currently (2) Sepsis Plan: due to legionella, ARDS leukocytosis improving , he is afebrile, recent blood cultures are negative antibiotic therapy changed, he is now on on Zithromax and Levaquin; Flagyl and cefepime were stopped monitor clinically, serial chest xrays, he had bronch, pathology showing macrophages without malignant cells ID following. EEG: no epileptiform activity possible extubation today (3) Hypernatremia Plan: corrected (4) Hyperkalemia Plan: corrected, monitor for recurrence (5) Left flank pain Plan: with non obstructing stone s/p previous bilateral ureteral stent placement, may need lithotripsy and stent removal in future urology has evaluated Plan (Chiquita Sher) Plan patient was seen and examined. Renal function has improved. Hypernatremia has improved. Possible extubation today. (Harvey Handley MD) Chiquita Sher Jul 24, 2016 09:44 Harvey Handley MD Jul 25, 2016 09:59
[2016-07-24 11:36] LABS: BLOOD GAS CARBOXYHEMOGLOBIN 1.3 % (0-4); BLOOD GAS HCO3 24 mmol/L (22-26); BLOOD GAS METHEMOGLOBIN 1.5 % (0-2); BLOOD GAS O2 HGB SATURATION 93 % (90-100); BLOOD GAS OXYGEN CONTENT 14.1 Vol % (12.0-20.0); BLOOD GAS PCO2 43 mmHg (38-42); BLOOD GAS PO2 85 mmHg (61-120); BLOOD GAS TOTAL HGB 10.7 G/DL (12.0-16.0); CRITICAL VALUE NO; OXYGEN DEVICE VENTILATOR; TEMP CORR TO 98.6
[2016-07-24 11:37] LABS: DRAW SITE LT RADIAL; FIO2 40 %; NUMBER OF ARTERIAL PUNCTURES 1; STAT NO; ULNAR PULSE PRESENT; VENT SETTINGS CPAP+5/PS5
[2016-07-24] MEDS: ONDANSETRON HCL 4 MG/2 ML VIAL IV PRN (11:43)
[2016-07-24] MEDS ORDERED: RESP: ALBUTEROL 2.5 MG/IPRATROPIUM 0.5 MG NEB (PRN) NEB (11:45)
[2016-07-24] MEDS: AZITHROMYCIN INJ 500 MG in SODIUM CHLOR 0.9% 250 ML INJ 250 ML IV SCH (12:29)
[2016-07-24] MEDS: THIAMINE HCL 100 MG TAB PO SCH (12:29)
[2016-07-24] MEDS: RESP: ALBUTEROL 2.5 MG/IPRATROPIUM 0.5 MG NEB (SCH) NEB ×4 (12:43→23:48)
--- NOTE | 2016-07-24 14:34 | HHI.FPPN ---
Subjective Remarks No acute events overnight. Yesterday, patient tolerated CPAP throughout the day. Overnight, pulse ranged from 70s to 90s, blood pressure 140s over 80, pulse ox 93% on FiO2 45%. This morning, patient is accompanied by daughter at bedside. She reports plans to extubate patient in the coming hours, assuming everything goes well. Patient is awake and alert today and is able to communicate by gesturing. Patient denies any pain from head to toe. He does however report some nausea. Objective Vitals Vital Signs Date Time Temp Pulse Resp B/P Pulse Ox O2 Delivery O2 Flow Rate FiO2 07/24/16 14:00 72 07/24/16 12:00 98.1 72 26 132/71 93 07/24/16 12:00 85 07/24/16 11:56 92 Nasal Cannula 4 07/24/16 11:56 92 Nasal Cannula 4.00 07/24/16 10:00 100 07/24/16 10:00 40 07/24/16 09:34 97 40 07/24/16 08:15 40 07/24/16 08:00 82 07/24/16 08:00 40 07/24/16 08:00 98.4 82 20 147/84 96 07/24/16 07:17 Nasal Cannula 40 07/24/16 07:17 96 40 07/24/16 06:00 82 07/24/16 04:07 94 45 07/24/16 04:00 98.5 83 19 141/83 99 07/24/16 04:00 45 07/24/16 04:00 83 07/24/16 02:00 78 07/24/16 00:10 93 45 07/24/16 00:00 91 07/24/16 00:00 45 07/24/16 00:00 98.3 91 18 145/79 93 07/23/16 22:00 99 07/23/16 20:04 94 45 07/23/16 20:00 45 07/23/16 20:00 87 07/23/16 20:00 99.0 87 19 120/75 94 07/23/16 18:04 94 45 07/23/16 18:00 88 07/23/16 16:07 95 45 07/23/16 16:00 92 07/23/16 16:00 45 07/23/16 16:00 98.3 92 20 136/76 92 I/O 07/23/16 07/23/16 07/23/16 07/24/16 07/24/16 07/24/16 07:00 15:00 23:00 07:00 15:00 23:00 Intake Total 953 ml 1432 ml 877 ml 730 ml 732 ml Output Total 725 ml 2450 ml 1600 ml 1150 ml 1900 ml Balance 228 ml -1018 ml -723 ml -420 ml -1168 ml Intake Oral 0 ml 0 ml 0 ml IV Total 627 ml 1022 ml 548 ml 439 ml 406 ml Tube Feeding 326 ml 410 ml 329 ml 291 ml 226 ml Other 100 ml Output Urine Total 425 ml 1750 ml 1400 ml 1075 ml 1600 ml Stool Total 300 ml 700 ml 200 ml 75 ml 300 ml Result Diagram: 07/24/16 0345 07/24/16 0345 Imaging Last Impressions Chest X-Ray 07/24/16 0000 Signed Impressions: Service Date/Time: Sunday, July 24, 2016 07:46 - CONCLUSION: 1. Scattered patchiness within the left lung consistent with atelectasis and/or pneumonia. Clinical correlation is recommended. 2. Right perihilar atelectasis. 3. Multiple tubes and lines are in good positions. Elbert Hector MD Soft Tissue Ultrasound 07/12/16 0000 Signed Impressions: Service Date/Time: Tuesday, July 12, 2016 19:25 - CONCLUSION: Well- defined heterogeneous mass which is nonspecific but likely represents a sebaceous cyst. Alexandro De La O MD Abdomen X-Ray 07/12/16 0000 Signed Impressions: Service Date/Time: Tuesday, July 12, 2016 16:59 - CONCLUSION: Nonspecific, benign abdomen appearance. Patel Torres MD Abdomen/Pelvis CT 07/07/16 1110 Signed Impressions: Service Date/Time: Thursday, July 07, 2016 11:31 - CONCLUSION: 1. Renal stones and stents in good position as described above. Yosvany Fuentes MD FACR Chest CT 07/07/16 0000 Signed Impressions: Service Date/Time: Thursday, July 07, 2016 16:09 - CONCLUSION: 1. Consolidative changes in the left upper lobe. There is suspicious adenopathy in the mediastinum. This may be more than an inflammatory process. 2. Bronchoscopy may be the easiest way to make a diagnosis of a neoplastic process. Yosvany Fuentes MD FACR Objective Remarks GEN: Well-developed, well-nourished patient. Much more awake and alert today on mechanical ventilator, supine position. Pt able to respond to commands and questions by moving his head and moving his arms, which are still in soft restraints. NECK: Supple, left internal jugular central line clean, dry, intact CV: Regular rate and rhythm with a grade 2 to 3/6 systolic murmur LUNGS: Clear breath sounds bilaterally with good air movement. No wheezes or crackles. Vent settings: CPAP/PSV at a rate of 19 breaths per minute, PSV 5 cm H2O, PEEP 5 cm H2O, flow trigger 2 L/m, FiO2 40% ABD: Soft nontender slightly distended : + urine output via clemens NEURO/PSYCH: Patient able to respond to questions with head nods, difficult to evaluate neurological status. Ext: Extremities warm and well-perfused. No lower extremity edema Date of Insertion: Jul 18, 2016 Line: Central Venous Catheter Side: Left Location: Internal, Jugular A/P Assessment and Plan 55 year old male with h/o HTN, renal calculi, s/p bilateral ureteral stent placements presented due to bilateral flank pain more significant on the left x 3 days, admitted for left-sided pneumonia, sepsis, possible UTI. Critical care was consulted on 07/08 due to acute worsening of symptoms associated with respiratory distress. Neuro: Sedated due to intubation, acute metabolic encephalopathy -Sedated with Diprivan and Fentanyl -Daily sedation vacation when appropriate -EEG mild diffuse disturbances of cerebral function. No epileptiform features. Appears essentially normal at times. Pulm: Left legionella pneumonia, severe ARDS, respiratory distress, COPD, suspicious adenopathy in the mediastinum Pulmonary consulted: appreciate recommendations * Bronchoscopy preformed on 07/17, samples were sent for culture * Bronchial washings significant for heavy growth of normal respiratory lashanda. No acid fast bacilli or fungal elements appreciated. -Currently on PEEP of 5, FiO2 of 40%, undergoing CPAP trials with plan to wean off vent and extubate today or tomorrow Imaging: * CXR 07/20: Left subclavian central venous catheter out. Other lines and tubes unchanged. No significant change, left greater than right bilateral airspace opacities and small left pleural effusion. * CXR 07/18: No significant change * CXR 07/17: Worsening consolidation and volume loss on the left * CXR 07/16: No significant change * CXR 07/15: Improved aeration of the left upper lobe compared to prior examination. Mild infiltrate right upper lobe. * CXR 07/09: Persistent severe diffuse left lung air space consolidation with likely left pleural effusion. Stable subtle airspace consolidation/opacity the in the right midlung * Chest CT: Consolidative changes in the left upper lobe. There is suspicious adenopathy in the mediastinum. This may be more than an inflammatory process Medications: * Albuterol and Duonebs * Solu-Medrol, 40mg Q12 Cardiac: HLD, HTN -ACS negative -Echo 07/10: Mild to moderate LVH, normal systolic function, ejection fraction estimated to be 60%. No regional wall motion abnormalities. Mild mitral valve regurgitation. Medications: * Amlodipine 10 mg * Hydralazine 50mg PO q8 and PRN * Metoprolol 50 mg q8 * Atorvastatin 80 mg * Labetalol 20 mg PRN : S/P bilateral ureteral stents, JASON -Creatinine continues to downtrend to 1.35 today. + UOP Urology consulted: Appreciate recommendations * Once clinical picture improves, may remove stents versus attempted ureteroscopy and laser lithotripsy * Will continue to follow Nephrology consulted: appreciate recommendations * JASON likely due to decreased renal perfusion * Minimize IVF. Double concentrate all fluids. Monitor fluid status, I&O's, electrolytes * Bump in Cr may have been due to aggressive diuresis * Free water 300 mL every 4h GI: -On tube feeds- Glucerna -Metoclopramide schedule q8h -Protonix 40mg IV daily for GI prophylaxis -Colace and senna ID: Legionella pneumonia, leukocytosis, septic shock, -Leukocytosis improving, still receiving steroids -Afebrile since 07/09 -Legionella antigen positive in urine -1 of 2 blood culture on 07/07 positive for staph S/P coagulase-negative, likely due to contamination -Repeat blood cultures, sputum cultures, urine cx NGTD -Urine eosinophils: Negative -Follow repeat Urine and sputum culture 07/16 ID consulted: Appreciate recommendations * Cefepime 07/11- * Flagyl 07/11- * Azithromycin 07/08- * Levaquin 1/23- Discontinued ABX: * Zyvox 07/09-07/11 * Zosyn 07/07-07/11 * Vancomycin 07/07-07/09, discontinued due to concern for drug fever and allergic interstitial nephritis Endo: SSI with Accu-Chek every 6h Electrolytes: Potassium within normal limits. Will continue to monitor and replete as necessary. DVT Prophylaxis - Lovenox Discharge Planning Timetable unknown. Pending respiratory improvement. wdw Dr. Antonio Problem List: (1) Legionella pneumonia Status: Acute (2) Acute respiratory failure with hypoxia Status: Acute (3) Acute renal failure Status: Acute (4) Sepsis Status: Acute (5) COPD (chronic obstructive pulmonary disease) Status: Acute Alexandro García MD R1 Jul 24, 2016 14:34
[2016-07-24] MEDS: ATORVASTATIN 80 MG TAB PO SCH (19:42)
[2016-07-24] MEDS: REMOVE OLD NICODERM (NICOTINE) PATCH TD SCH (21:00)
[2016-07-24] MEDS: SODIUM CHLORIDE 0.9% FLUSH 5 ML FLUSH FLUSH PRN (22:24)
[2016-07-24] MEDS: MORPHINE SULFATE 4 MG/ML INJ IV PRN (22:24)
[2016-07-25] VITALS (14 sets, daily range): BP systolic 129–161; BP diastolic 63–87; PULSE 77–96; RESP 16–30; TEMP 98–100.1; O2SAT 91–97
[2016-07-25] MEDS: hydrALAZINE HCL 50 MG TAB PO SCH ×3 (01:34→18:00)
[2016-07-25] MEDS: ACETAMINOPHEN/HYDROcodone 325 MG/5 MG TAB PO PRN ×2 (01:34→02:34)
[2016-07-25] MEDS: RESP: ALBUTEROL 2.5 MG/IPRATROPIUM 0.5 MG NEB (SCH) NEB ×5 (03:47→20:27)
[2016-07-25] MEDS: INSULIN NovoLIN REGULAR SUPPLEMENTAL SCALE SQ SCH ×4 (06:00→18:00)
[2016-07-25] MEDS: METOCLOPRAMIDE HCL 10 MG/2 ML VIAL IV SCH ×3 (06:24→19:53)
[2016-07-25] MEDS: METOPROLOL TARTRATE 25 MG TAB PO SCH ×3 (06:24→22:00)
[2016-07-25] MEDS: methylPREDNISolone SOD SUCC 40 MG/1 ML VIAL IV PUSH SCH ×2 (06:24→15:22)
--- NOTE | 2016-07-25 07:30 | HHI.CCPN ---
Subjective Remarks/Hospital Course The patient is a 55-year-old male with a past medical history of hypertension, renal calculi, status post bilateral ureteral stent placement in April, . He presented to [facility] ED with a three-day history of bilateral flank pain associated with fever and severe body aches. Just prior to admission, the patient had gross hematuria per his daughter and had decreased p.o. intake. The patient denied any shortness of breath or chest pain. Due to his abdominal pain, a CT scan of the abdomen and pelvis was obtained which showed renal stones and stent in place. An initial chest x-ray in the ED showed extensive airspace disease throughout the left upper lobe characteristic of pneumonia. He subsequently underwent a CT scan of the chest which showed consolidative changes in the left upper lobe along with suspicious adenopathy in the mediastinum. His initial creatinine level was 1.6 and the patient was placed on broad-spectrum antibiotics in addition to IV fluids. His laboratory data from today showed improvement of his renal function with a creatinine of 1.30 and lactic acid level measured at 1.0. [facility] was called for respiratory distress and the patient was a nonrebreather mask and transferred to [facility]. When seen in the ICU he was tachypneic, tachycardic and had a temperature of 103. The patient was subsequently intubated by myself and placed on full mechanical ventilation. A chest x-ray post intubation showed severe diffuse left lung airspace consolidation and a new mild consolation versus atelectasis in the right midlung zone. His nasal washing on arrival negative for influenza, and blood cultures and urine culture from yesterday showed no growth to date. The patient had a temperature of 102.8 earlier today. 07/09 Patient is sedated with versed, Fentanyl and intubated. Now on PRVC with RR 20, TV 550, IT:1, PEEP:15 and FIO2 100%. Afebrile. His Legionella urinary AG is positive. Renal function worse today with Cr 1.86 from 1.30 07/10: Patient remains very critical. Placed on Prone therapy yesterday for worsening respiratory status and severe hypoxia. Worsening renal function- creatinine increased from 1.8-2.8 today, urology following, will consult nephrology. Remains on 4 mics per minute of Levophed, urine output adequate 1.9 L in 24 hours. Currently on broad-spectrum antibiotics per ID on Zosyn and azithromycin Zyvox. I have added Levaquin for double coverage for Legionella 07/11: Remains intubated sedated. FiO2 at 50%. Chest x-ray shows bilaterally improving aeration. We'll reduce PEEP to 12. Urine output is adequate but creatinine has increased to 3. 07/12: Patient remains on prone therapy, remains critically ill but slowly his improving oxygenation. Currently on 10 of PEEP and 50% oxygen. Urine output is 1.7 L in 24 hours, increase in BUN to 79 creatinine is 3.2. We'll start weaning and starting today 07/13: Remains critically ill, but showing continued signs of improvement. UO >4L , Cr improved from 3.2 to 2.8. On weaning doses of Flolan. Maintaining oxygen saturation above 90% on 45% FiO2. WBC count is trending down. Will discontinue prone therapy today 07/14 Patient is off Rotoprone bed on ACV with RR 18, TV 600, PEEP: 10 and FIO2 50%. Sedated with Diprivan/Fentanyl and Versed. Afebrile.Renal function worse today with Cr: 3.17 today from 2.79 with UO 3600ml in 24 hrs. 07/15 Patient remains sedated and intubated. Afebrile. Now on ACV with RR 18, TV 600< PEEP:10 and FIO2 increased 60%. 07/16: Tmax 99.1. Tolerating tube feeding. Positive BM. Arousable on the ventilator. 07/17: Currently afebrile. Worsening chest x-ray today. Patient received fiberoptic bronchoscopy which essentially cleared secretions from left lingula/ lower lobe. Arousable and does follow commands. 07/18: Afebrile. Status post bronchoscopy yesterday. Tolerating tube feeds. Positive BM. Arousable and does follow commands. Nurses nursing "slight" tremor left upper extremity occasionally. 07/19: Sedated, orally intubated on mechanical ventilation 22: Remains sedated, orally intubated on mechanical ventilation. Tolerating tube feeds. PEEP remains at +10 FiO2 50% 2/3: Remains sedated, orally intubated on mechanical ventilation. Tolerating tube feeds. PEEP decreased to +8 today, FiO2 40%. 07/22 Patient is sedated with Fentanyl and Diprivan and intubated. On ACV with RR 18, TV 600, PEEP: 8 and FIO2 40%. Afebrile. 07/23 No acute events overnight. Sedated with Diprivan and Fentanyl. Patient tolerated CPAP for most of day yesterday. Afebrile. 07/24 Patient remains sedated and intubated. Tolerated CPAP trials for several hrs yesterday. 07/25 Patient s/p extubation yesterday. On 2L oxygen with good sats. Afebrile. Objective Vital Signs Date Time Temp Pulse Resp B/P Pulse Ox O2 Delivery O2 Flow Rate FiO2 07/25/16 06:00 77 07/25/16 04:00 98.0 23 161/84 95 07/24/16 19:30 Nasal Cannula 2.00 07/24/16 10:00 40 Intake and Output 07/24/16 07/24/16 07/25/16 08:00 16:00 00:00 Intake Total 730 ml 732 ml 557 ml Output Total 1150 ml 1900 ml 1500 ml Balance -420 ml -1168 ml -943 ml Result Diagram: 07/24/16 0345 07/24/16 0345 Other Results Laboratory Tests Test 07/24/16 11:15 Blood Gas Puncture Site LT RADIAL Blood Gas Patient Temperature 98.6 Blood Gas HCO3 24 mmol/L Blood Gas Base Excess -1.0 mmol/L Blood Gas Oxygen Saturation 93 % Arterial Blood pH 7.36 Arterial Blood Partial 43 mmHg Pressure CO2 Arterial Blood Partial 85 mmHg Pressure O2 Arterial Blood Oxygen Content 14.1 Vol % Arterial Blood 1.3 % Carboxyhemoglobin Arterial Blood Methemoglobin 1.5 % Blood Gas Hemoglobin 10.7 G/DL Oxygen Delivery Device VENTILATOR Blood Gas Ventilator Setting CPAP+5/PS5 Blood Gas Inspired Oxygen 40 % Imaging Last Impressions Chest X-Ray 07/24/16 0000 Signed Impressions: Service Date/Time: Sunday, July 24, 2016 07:46 - CONCLUSION: 1. Scattered patchiness within the left lung consistent with atelectasis and/or pneumonia. Clinical correlation is recommended. 2. Right perihilar atelectasis. 3. Multiple tubes and lines are in good positions. Elbert Hector MD Soft Tissue Ultrasound 07/12/16 0000 Signed Impressions: Service Date/Time: Tuesday, July 12, 2016 19:25 - CONCLUSION: Well- defined heterogeneous mass which is nonspecific but likely represents a sebaceous cyst. Alexandro De La O MD Abdomen X-Ray 07/12/16 0000 Signed Impressions: Service Date/Time: Tuesday, July 12, 2016 16:59 - CONCLUSION: Nonspecific, benign abdomen appearance. Patel Torres MD Abdomen/Pelvis CT 07/07/16 1110 Signed Impressions: Service Date/Time: Thursday, July 07, 2016 11:31 - CONCLUSION: 1. Renal stones and stents in good position as described above. Yosvany Fuentes MD FACR Chest CT 07/07/16 0000 Signed Impressions: Service Date/Time: Thursday, July 07, 2016 16:09 - CONCLUSION: 1. Consolidative changes in the left upper lobe. There is suspicious adenopathy in the mediastinum. This may be more than an inflammatory process. 2. Bronchoscopy may be the easiest way to make a diagnosis of a neoplastic process. Yosvany Fuentes MD FACR Objective Remarks GENERAL: Patient is 56 yo s/p extubation lying in bed in no acute resp distress SKIN: Warm and dry. HEAD: Normocephalic. EYES: No scleral icterus. No injection or drainage. NECK: Supple, trachea midline. No JVD or lymphadenopathy. CARDIOVASCULAR: Regular rate and rhythm without murmurs, gallops, or rubs. RESPIRATORY: Breath sounds equal bilaterally. No accessory muscle use. GASTROINTESTINAL: Abdomen soft, non-tender, nondistended. MUSCULOSKELETAL: No cyanosis, or edema. Neuro: Awake and alert Date of Insertion: Jul 18, 2016 Line: Central Venous Catheter Side: Left Location: Internal, Jugular A/P Assessment and Plan Plan Neuro/Psych: Acute toxic metabolic encephalopathy secondary to likely Legionella pneumonia -Awake and alert, monitor neuro status, avoid sedatives -Continue with thiamine 100 mg daily. Continue close neuro monitoring -- EEG 2/2 - encephalopathy - no epileptiform activity. Pulm: Acute hypoxemic respiratory failure secondary to pneumonia/community acquired ARDS Continue with oxygen keep sat >92% Bronchodilators, incentive spirometry Solumederol 40mg q12, Pulm is following-Dr. Jaimes Status post fiberoptic bronchoscopy 07/17. BAL: NGTD CV: Hypertension History dyslipidemia -Monitor HR and BP keep MAP>65mmHg. -2D echo 1/23/17-EF 60%, moderate LVH -On Hydralazine 50mg Q8, Norvasc 10mg daily, Metoprolol 50mg Q8 - On Lipitor 80 mg by mouth daily for dyslipidemia Home medication atorvastatin 80 mg daily for dyslipidemia. Home medication Norvasc 10 milligrams daily for hypertension. /renal: Urinary tract infection History of renal calculi with bilateral ureteral stent placement in April JASON-improving -Nephrology Dr. Handley following -Urology service consulted for hx flank pain and renal calculi with ureteral stent placement-CT abdomen pelvis showed stents in good position Plan for a stent removal/ureteroscopy with possible lithotripsy once patient is medically stable -Monitor renal function, I/O's, electrolytes replacement as needed. GI Protein calorie malnutrition/moderate Gastroesophageal reflux disease -On PO diet - Protonix 40mg IV daily for GI prophylaxis -Bowel regimen with Colace and senna. ID: Likely Legionella pneumonia -Continue with ABX per ID Continue Azithromycin IV, Levaquin , off Cefepime and Flagyl. - 07/17 - bronchus - NGTD - 07/16 - sputum - heavy growth - Blood cultures 2 - 07/09 - no growth - Blood Cultures 2 - 07/08 - no growth --07/08 Legionella urinary antigen positive. -07/07 BC : [facility]PC 06/21 bottles-coag neg staph, probable contaminant - 07/07 urine no growth- Sputum - 07/07 no growth Endo: Hyperglycemia/steroid-induced -SSI with Accu-Chek q.6 hours for glycemic control Heme: Leukocytosis -Monitor CBC. Proph: -GI prophylaxis with Protonix 40 mg daily and DVT prophylaxis with SCDs and Lovenox subcu. PT/OT eval and treat Lines: -Peripheral IV, L IJ CVL 07/18 , d/c central line Follow up on labs Level 3 Nata Choi MD Jul 25, 2016 07:30 Nata Choi MD Jul 25, 2016 07:30
[2016-07-25 07:58] LABS: AUTOMATED NEUTROPHIL # 12.5 TH/MM3 (1.8-7.7); BASOPHIL # 0.1 TH/MM3 (0-0.2); BASOPHIL % 0.4 % (0.0-2.0); HEMATOCRIT 28.4 % (39.0-51.0); HEMO FLAGS DIFF FINAL; LYMPH % 9.1 % (9.0-44.0); LYMPHOCYTE # 1.4 TH/MM3 (1.0-4.8); MEAN CELL VOLUME 96.4 FL (80.0-100.0); MEAN CORPUSCULAR HEMOGLOBIN 31.7 PG (27.0-34.0); MEAN CORPUSCULAR HGB CONC 32.9 % (32.0-36.0); MONO % 6.9 % (0.0-8.0); NEUT % 83.6 % (16.0-70.0); PLATELET COUNT 294 TH/MM3 (150-450); RED BLOOD COUNT 2.95 MIL/MM3 (4.50-5.90); RED CELL DISTRIBUTION WIDTH 14.1 % (11.6-17.2)
[2016-07-25] MEDS: LEVOFLOXACIN 750 MG PREMIX INJ 150 ML IV SCH (08:08)
[2016-07-25] MEDS: NICOTINE 21 MG/24 HR PATCH TD SCH (08:09)
[2016-07-25] MEDS: SENNOSIDES SYRUP 8.8 MG/5 ML CUP OG SCH ×3 (08:09→20:49)
[2016-07-25] MEDS: DOCUSATE SODIUM 100 MG/10 ML UDC OG SCH ×3 (08:09→20:49)
[2016-07-25] MEDS: THIAMINE HCL 100 MG TAB PO SCH (08:09)
[2016-07-25] MEDS: ENOXAPARIN SODIUM 40 MG/0.4 ML SYRINGE SQ SCH (08:09)
[2016-07-25] MEDS: PANTOPRAZOLE SODIUM 40 MG VIAL IV PUSH SCH (08:09)
[2016-07-25] MEDS: SODIUM CHLORIDE 0.9% FLUSH 5 ML FLUSH FLUSH SCH ×2 (08:10→20:49)
[2016-07-25] MEDS: SODIUM CHLORIDE 0.9% FLUSH 5 ML FLUSH IVF SCH ×2 (08:10)
[2016-07-25] MEDS: ARTIFICIAL TEARS OPTH OINT 3.5 APPLIC/3.5 GM TUBO EACH EYE SCH ×2 (08:10→20:51)
[2016-07-25] MEDS: MORPHINE SULFATE 4 MG/ML INJ IV PRN ×2 (08:14→16:30)
--- NOTE | 2016-07-25 08:22 | HHI.FPPN ---
Subjective Remarks Pt seen and examined this morning. Pt is extubated, tolerating 2L NC. Respiratory present at bed side to administer breathing treatment. Pt denies chest pain, abdominal pain, sob, difficulty breathing. He continues to endorse nausea. (Nadine Aly MD R2) Objective Vitals Vital Signs Date Time Temp Pulse Resp B/P Pulse Ox O2 Delivery O2 Flow Rate FiO2 07/25/16 07:27 97 Nasal Cannula 3.00 07/25/16 06:00 77 07/25/16 04:00 83 07/25/16 04:00 98.0 85 23 161/84 95 07/25/16 02:00 85 07/25/16 00:00 98.9 85 20 150/80 97 07/25/16 00:00 85 07/24/16 22:00 79 07/24/16 20:00 88 07/24/16 20:00 98.8 88 32 152/79 93 07/24/16 19:30 92 Nasal Cannula 2.00 07/24/16 18:00 85 07/24/16 16:00 65 07/24/16 16:00 98.2 65 22 90/56 94 07/24/16 14:00 72 07/24/16 12:00 98.1 72 26 132/71 93 07/24/16 12:00 85 07/24/16 11:56 92 Nasal Cannula 4 07/24/16 11:56 92 Nasal Cannula 4.00 07/24/16 10:00 100 07/24/16 10:00 40 07/24/16 09:34 97 40 07/24/16 08:15 40 I/O 07/24/16 07/24/16 07/24/16 07/25/16 07/25/16 07/25/16 07:00 15:00 23:00 07:00 15:00 23:00 Intake Total 730 ml 732 ml 557 ml 791 ml Output Total 1150 ml 1900 ml 1500 ml 1550 ml Balance -420 ml -1168 ml -943 ml -759 ml Intake Oral 0 ml 250 ml 700 ml IV Total 439 ml 406 ml 307 ml 91 ml Tube Feeding 291 ml 226 ml Other 100 ml Output Urine Total 1075 ml 1600 ml 1400 ml 1550 ml Stool Total 75 ml 300 ml 100 ml # Voids 50 (Nadine Aly MD R2) Result Diagram: 07/25/16 0645 07/24/16 0345 Objective Remarks GEN: Well-developed, well-nourished patient. Awake and alert. Pt able to answer questions. No restraints. Wearing nasal canula on 2L. NECK: Supple, left internal jugular central line clean, dry, intact CV: Regular rate and rhythm with a grade 3/6 systolic murmur LUNGS: Anterior lung alba auscultated. Clear breath sounds bilaterally with good air movement, decreased breath sounds at lung bases. No wheezes or crackles. ABD: Soft nontender slightly distended : + urine output via clemens NEURO/PSYCH: Alert and oriented. Patient able to respond to questions. Slow speech. Ext: Extremities warm and well-perfused. No lower extremity edema (Nadine Aly MD R2) Date of Insertion: Jul 18, 2016 Line: Central Venous Catheter Side: Left Location: Internal, Jugular (Nadine Aly MD R2) A/P Assessment and Plan 55 year old male with h/o HTN, renal calculi, s/p bilateral ureteral stent placements presented due to bilateral flank pain more significant on the left x 3 days, admitted for left-sided pneumonia, sepsis, possible UTI. Critical care was consulted on 07/08 due to acute worsening of symptoms associated with respiratory distress. Neuro: Sedated discontinued due to extubation, acute metabolic encephalopathy -Sedation discontinued -Pt awake and alert with slow speech. -EEG mild diffuse disturbances of cerebral function. No epileptiform features. Appears essentially normal at times. Pulm: Left legionella pneumonia, severe ARDS, COPD, suspicious adenopathy in the mediastinum Pulmonary consulted: appreciate recommendations * Bronchoscopy preformed on 07/17, samples were sent for culture * Bronchial washings significant for heavy growth of normal respiratory lashanda. No acid fast bacilli or fungal elements appreciated. -Extubated, currently tolerating 2L NC Imaging: * CXR 07/24: Scattered patches in the left lung consistent with atelectasis/ pneumonia, clinical correlation recommended. Right perihilar atelectasis. Multiple lines and tubes in good position. * CXR 07/20: Left subclavian central venous catheter out. Other lines and tubes unchanged. No significant change, left greater than right bilateral airspace opacities and small left pleural effusion. * CXR 07/18: No significant change * CXR 07/17: Worsening consolidation and volume loss on the left * CXR 07/16: No significant change * CXR 07/15: Improved aeration of the left upper lobe compared to prior examination. Mild infiltrate right upper lobe. * CXR 07/09: Persistent severe diffuse left lung air space consolidation with likely left pleural effusion. Stable subtle airspace consolidation/opacity the in the right midlung * Chest CT: Consolidative changes in the left upper lobe. There is suspicious adenopathy in the mediastinum. This may be more than an inflammatory process Medications: * Albuterol and Duonebs * Solu-Medrol, 40mg Q12 Cardiac: HLD, HTN -ACS negative -Echo 07/10: Mild to moderate LVH, normal systolic function, ejection fraction estimated to be 60%. No regional wall motion abnormalities. Mild mitral valve regurgitation. Medications: * Amlodipine 10 mg * Hydralazine 50mg PO q8 and PRN * Metoprolol 50 mg q8 * Atorvastatin 80 mg * Labetalol 20 mg PRN : S/P bilateral ureteral stents, JASON -Creatinine 1.26, improving. + UOP Urology consulted: Appreciate recommendations * Once clinical picture improves, may remove stents versus attempted ureteroscopy and laser lithotripsy * Will continue to follow Nephrology consulted: appreciate recommendations * JASON likely due to decreased renal perfusion * Minimize IVF. Double concentrate all fluids. Monitor fluid status, I&O's, electrolytes * Bump in Cr may have been due to aggressive diuresis * Free water 300 mL every 4h GI: -On tube feeds- Glucerna -Metoclopramide schedule q8h -Protonix 40mg IV daily for GI prophylaxis -Colace and senna ID: Legionella pneumonia, leukocytosis, septic shock, -Leukocytosis improving, still receiving steroids -Afebrile since 07/09 -Legionella antigen positive in urine -1 of 2 blood culture on 07/07 positive for staph S/P coagulase-negative, likely due to contamination -Repeat blood cultures, sputum cultures, urine cx NGTD -Urine eosinophils: Negative -Follow repeat Urine and sputum culture 07/16 ID consulted: Appreciate recommendations * Flagyl discontinued (07/11-07/24) * Azithromycin 07/08- * Levaquin 07/10- Discontinued ABX: * Cefepime (07/11-07/23) * Zyvox 07/09-07/11 * Zosyn 07/07-07/11 * Vancomycin 07/07-07/09, discontinued due to concern for drug fever and allergic interstitial nephritis Endo: SSI with Accu-Chek every 6h Electrolytes: Potassium within normal limits. Will continue to monitor and replete as necessary. DVT Prophylaxis - Lovenox Discharge Planning Timetable unknown. Pending respiratory improvement. If respiratory status continues to improve, consider transfer from the [facility] within the next 1-[address] Antonio dw Dr. Dawson (Nadine Aly MD R2) Attending Attestation Patient examined and case discussed with resident physician I have read the above note and agree with the assessment/plan as discussed with me I was involved in all medical decision making for this patient Elgin Antonio M.D. (Elgin Antonio MD) Problem List: (1) Legionella pneumonia Status: Acute (2) Acute respiratory failure with hypoxia Status: Acute (3) Acute renal failure Status: Acute (4) Sepsis Status: Acute (5) COPD (chronic obstructive pulmonary disease) Status: Acute (Nadine Aly MD R2) Nadine Aly MD R2 Jul 25, 2016 08:22 Elgin Antonio MD Jul 25, 2016 16:56
[2016-07-25 08:30] LABS: BICARBONATE 24.6 MEQ/L (21.0-32.0); POTASSIUM 3.8 MEQ/L (3.5-5.1)
--- NOTE | 2016-07-25 09:30 | HHI.IDPN ---
Subjective Subjective Remarks Mr. Ambrocio is a 55-year-old male with past medical history significant for renal calculi status post bilateral ureteral stent placements as well as hypertension who presented to the emergency department to bilateral flank pain for the past 3 days. He also had shortness of breath and chest discomfort on admission. UA with some pyuria. UC negative. CT A/P stent ok, no hydro. ID following for sepsis, pneumonia, legionella antigen positive, possible legionellosis with secondary bacterial infection. Overnight events reviewed with RN. Extubated on 3L NC. Afebrile BP OK Passed swallow eval. UO ok No rash Antibiotics Azithro IV Levaquin IV Lines Line sites with no e/o infection Past Medical History reviewed. 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 Vital Signs Date Time Temp Pulse Resp B/P Pulse Ox O2 Delivery O2 Flow Rate FiO2 07/25/16 07:27 97 Nasal Cannula 3.00 07/25/16 07:15 2.00 96 07/25/16 06:00 77 07/25/16 04:00 83 07/25/16 04:00 98.0 85 23 161/84 95 07/25/16 02:00 85 07/25/16 00:00 98.9 85 20 150/80 97 07/25/16 00:00 85 07/24/16 22:00 79 07/24/16 20:00 88 07/24/16 20:00 98.8 88 32 152/79 93 07/24/16 19:30 92 Nasal Cannula 2.00 07/24/16 18:00 85 07/24/16 16:00 65 07/24/16 16:00 98.2 65 22 90/56 94 07/24/16 14:00 2.00 95 07/24/16 14:00 72 07/24/16 12:00 98.1 72 26 132/71 93 07/24/16 12:00 85 07/24/16 11:56 92 Nasal Cannula 4 07/24/16 11:56 92 Nasal Cannula 4.00 07/24/16 11:00 4.00 92 07/24/16 10:00 100 07/24/16 10:00 40 07/24/16 09:34 97 40 07/24/16 07/24/16 07/25/16 15:00 23:00 07:00 Intake Total 732 ml 557 ml 791 ml Output Total 1900 ml 1500 ml 1550 ml Balance -1168 ml -943 ml -759 ml Intake Oral 250 ml 700 ml IV Total 406 ml 307 ml 91 ml Tube Feeding 226 ml Other 100 ml Output Urine Total 1600 ml 1400 ml 1550 ml Stool Total 300 ml 100 ml # Voids 50 . Laboratory Tests Test 07/24/16 07/25/16 03:45 06:45 White Blood Count 15.6 TH/MM3 15.0 TH/MM3 Red Blood Count 2.90 MIL/MM3 2.95 MIL/MM3 Hemoglobin 9.2 GM/DL 9.4 GM/DL Hematocrit 28.2 % 28.4 % Mean Corpuscular Volume 97.2 FL 96.4 FL Mean Corpuscular Hemoglobin 31.5 PG 31.7 PG Mean Corpuscular Hemoglobin 32.5 % 32.9 % Concent Red Cell Distribution Width 14.0 % 14.1 % Platelet Count 293 TH/MM3 294 TH/MM3 Mean Platelet Volume 10.2 FL 9.9 FL Neutrophils (%) (Auto) 88.3 % 83.6 % Lymphocytes (%) (Auto) 6.3 % 9.1 % Monocytes (%) (Auto) 5.0 % 6.9 % Eosinophils (%) (Auto) 0.1 % 0.0 % Basophils (%) (Auto) 0.3 % 0.4 % Neutrophils # (Auto) 13.8 TH/MM3 12.5 TH/MM3 Lymphocytes # (Auto) 1.0 TH/MM3 1.4 TH/MM3 Monocytes # (Auto) 0.8 TH/MM3 1.0 TH/MM3 Eosinophils # (Auto) 0.0 TH/MM3 0.0 TH/MM3 Basophils # (Auto) 0.1 TH/MM3 0.1 TH/MM3 CBC Comment DIFF FINAL DIFF FINAL Differential Comment Laboratory Tests Test 07/24/16 07/25/16 03:45 06:45 Sodium Level 141 MEQ/L 141 MEQ/L Potassium Level 4.7 MEQ/L 3.8 MEQ/L Chloride Level 105 MEQ/L 107 MEQ/L Carbon Dioxide Level 28.5 MEQ/L 24.6 MEQ/L Anion Gap 8 MEQ/L 9 MEQ/L Blood Urea Nitrogen 52 MG/DL 44 MG/DL Creatinine 1.32 MG/DL 1.26 MG/DL Estimat Glomerular Filtration 56 ML/MIN 59 ML/MIN Rate Random Glucose 96 MG/DL 78 MG/DL Calcium Level 9.1 MG/DL 9.4 MG/DL Phosphorus Level 3.4 MG/DL Magnesium Level 1.6 MG/DL Imaging Chest X-Ray 07/16/16 0000 Signed Impressions: Service Date/Time: Saturday, July 16, 2016 02:47 - CONCLUSION: No significant change has occurred. Andi Parra MD Chest X-Ray 07/15/16 0000 Signed Impressions: Service Date/Time: Friday, July 15, 2016 07:05 - CONCLUSION: 1. Improved aeration of the left upper lung compared to the prior examination. 2. Mild infiltrate right upper lung. Elgin Levin MD Chest X-Ray 07/15/16 0000 Signed Impressions: Service Date/Time: Friday, July 15, 2016 07:05 - CONCLUSION: 1. Improved aeration of the left upper lung compared to the prior examination. 2. Mild infiltrate right upper lung. Elgin Levin MD Soft Tissue Ultrasound 07/12/16 0000 Signed Impressions: Service Date/Time: Tuesday, July 12, 2016 19:25 - CONCLUSION: Well- defined heterogeneous mass which is nonspecific but likely represents a sebaceous cyst. Alexandro De La O MD Abdomen X-Ray 07/12/16 0000 Signed Impressions: Service Date/Time: Tuesday, July 12, 2016 16:59 - CONCLUSION: Nonspecific, benign abdomen appearance. Patel Torres MD Abdomen/Pelvis CT 07/07/16 1110 Signed Impressions: Service Date/Time: Thursday, July 07, 2016 11:31 - CONCLUSION: 1. Renal stones and stents in good position as described above. Yosvany Fuentes MD FACR Chest CT 07/07/16 0000 Signed Impressions: Service Date/Time: Thursday, July 07, 2016 16:09 - CONCLUSION: 1. Consolidative changes in the left upper lobe. There is suspicious adenopathy in the mediastinum. This may be more than an inflammatory process. 2. Bronchoscopy may be the easiest way to make a diagnosis of a neoplastic process. Yosvany Fuentes MD FACR Last Impressions Chest X-Ray 07/09/16 0000 Signed Impressions: Service Date/Time: Saturday, July 09, 2016 10:44 - CONCLUSION: Left subclavian central line tip is in the superior aspect of the SVC. No pneumothorax is visualized. Otherwise, stable exam. Patel Palmer MD Abdomen/Pelvis CT 07/07/16 1110 Signed Impressions: Service Date/Time: Thursday, July 07, 2016 11:31 - CONCLUSION: 1. Renal stones and stents in good position as described above. Yosvany Fuentes MD FACR Chest CT 07/07/16 0000 Signed Impressions: Service Date/Time: Thursday, July 07, 2016 16:09 - CONCLUSION: 1. Consolidative changes in the left upper lobe. There is suspicious adenopathy in the mediastinum. This may be more than an inflammatory process. 2. Bronchoscopy may be the easiest way to make a diagnosis of a neoplastic process. Yosvany Fuentes MD FACR Physical Exam GENERAL: Obese. Well nourished. On the vent., NAD SKIN: No rashes. Cool and dry. HEENT: Bowie conjunctiva, no icterus. CARDIOVASCULAR: HS audible. No murmur appreciated. RESPIRATORY: Breath sounds diminished bilaterally posteriorly. GASTROINTESTINAL: soft, NT MUSCULOSKELETAL: Edema hands and feet NEUROLOGICAL: Sedated. Psych could not be assessed IV line sites with no evidence of infection. Assessment & Plan Remarks Severe sepsis present on admission(criteria explained in history of present illness) Pneumonia present on admission (community acquired, atypical, possible component of healthcare associated pneumonia) Likely Legionella Pneumonia with ARDS now resp santos improving. Bilateral ureteral stents. Acute renal failure present on admission likely sepsis, AIN, ATN. Acute metabolic encephalopathy: likely secondary to sepsis Leukocytosis, persistent. Recommendations: Continue Azithromycin IV (will likely need 3 weeks or more) Continue Levaquin IV (will likely need 3 weeks or more) Will likely to transition to oral. Follow cultures Follow clinically. d/w RN d/w pts daughter Brenda Walsh MD Jul 25, 2016 09:30
--- NOTE | 2016-07-25 09:48 | HHI.NPPN ---
Subjective General Problems: Anemia, Edema Renal Failure: Acute Interval History He was extubated successfully yesterday. Now awake, complaining of generalized pain. Creatinine has improved. (Chiquita Sher) Review of Systems General Constitutional: Fatigue (Chiquita Sher) Musculoskeletal MS: Pain/Stiffness (Chiquita Sher) Objective Data Data 07/24/16 07/25/16 19:00 07:00 Intake Total 732 ml 1348 ml Output Total 1900 ml 3050 ml Balance -1168 ml -1702 ml Intake Oral 950 ml IV Total 406 ml 398 ml Tube Feeding 226 ml Other 100 ml Output Urine Total 1600 ml 2950 ml Stool Total 300 ml 100 ml # Voids 50 Vital Signs Date Time Temp Pulse Resp B/P Pulse Ox O2 Delivery O2 Flow Rate FiO2 07/25/16 07:27 97 Nasal Cannula 3.00 07/25/16 07:15 2.00 96 07/25/16 06:00 77 07/25/16 04:00 83 07/25/16 04:00 98.0 85 23 161/84 95 07/25/16 02:00 85 07/25/16 00:00 98.9 85 20 150/80 97 07/25/16 00:00 85 07/24/16 22:00 79 07/24/16 20:00 88 07/24/16 20:00 98.8 88 32 152/79 93 07/24/16 19:30 92 Nasal Cannula 2.00 07/24/16 18:00 85 07/24/16 16:00 65 07/24/16 16:00 98.2 65 22 90/56 94 07/24/16 14:00 2.00 95 07/24/16 14:00 72 07/24/16 12:00 98.1 72 26 132/71 93 07/24/16 12:00 85 07/24/16 11:56 92 Nasal Cannula 4 07/24/16 11:56 92 Nasal Cannula 4.00 07/24/16 11:00 4.00 92 07/24/16 10:00 100 07/24/16 10:00 40 (Chiquita Sher) -: 07/25/16 0645 07/25/16 0645 Imaging Last 72 hours Impressions Chest X-Ray 07/24/16 0000 Signed Impressions: Service Date/Time: Sunday, July 24, 2016 07:46 - CONCLUSION: 1. Scattered patchiness within the left lung consistent with atelectasis and/or pneumonia. Clinical correlation is recommended. 2. Right perihilar atelectasis. 3. Multiple tubes and lines are in good positions. Elbert Hector MD Tubes & Lines: Clemens Tubes & Lines Comment rectal tube (Chiquita Sher. GOLD CHARMER) Physical Exam General Appearance: Well Developed, Well Nourished, No Acute Distress (Chiquita Sher B. GOLD CHARMER) Eyes Eye Exam: Pupils Equal (Chiquita Sher B. GOLD CHARMER) Throat Throat Exam: Gag Reflex Present (Chiquita Sher B. GOLD CHARMER) Neck Neck Exam: Neck Supple, Trachea Midline (Tino Sheron B. GOLD CHARMER) Pulmonary Resp Exam: Crackles, Rhonchi, Decreased Bases Resp Remarks scattered rales, more pronounced on left (Chiquita Sher B. GOLD CHARMER) Cardiology CV Exam: Regular, Normal Sinus Rhythm, Good Perfusion (Chiquita Sher B. GOLD CHARMER) Gastrointestinal/Abdomen GI Exam: Soft, Non-Tender, Bowel Sounds Present, Positive Bowel Movement ( Chiquita Sher B. GOLD CHARMER) Musculoskeletal MS Exam: Joints Intact, Normal Tone (Chiquita Sher B. GOLD CHARMER) Integumentary Skin Exam: Clear, Warm, Dry, Intact (Chiquita Sher B. GOLD CHARMER) Extremeties Extremities Exam: Pedal Pulses Palpable, Moderate Edema Extremeties Remarks edema improving (Chiquita Sher B. GOLD CHARMER) Neurologic Neuro Exam: Awake, Moving All Extremities (Chiquita Sher B. GOLD CHARMER) Psychiatric Psych Exam: Appropriate Responses (Chiquita Sher B. GOLD CHARMER) VTE Prophylaxis Device: SCDs (Chiquita Sher B. GOLD CHARMER) Assessment/Plan Discussed Condition With: Daughter Assessment Summary: JASON/Acute Renal Failure, Hypertension Problem List: (1) Acute renal failure Plan: His creatinine was 1.13 on 07/08 he became septic around that time with BP 70/30s, started on pressors JASON was due to decreased renal perfusion (sepsis), ATN. AIN was also a possibility creatinine continues to improve electrolytes unremarkable excellent urine output with clemens daily renal panel avoid nephrotoxins monitor fluid volume status, diuretics on hold currently renal panel in am (2) Sepsis Plan: due to legionella, ARDS leukocytosis improving , he is afebrile, recent blood cultures are negative antibiotics : on Zithromax and Levaquin monitor clinically, serial chest xrays, he had bronch, pathology showing macrophages without malignant cells ID following. (3) Left flank pain Plan: with non obstructing stone s/p previous bilateral ureteral stent placement, may need lithotripsy and stent removal in future urology has evaluated, will reconsult for further treatment (4) Hypernatremia Plan: corrected (5) Hyperkalemia Plan: corrected, monitor for recurrence Plan (Chiquita Sher) Plan patient was seen and examined. Renal function has improved. Extubated yesterday. Continue supportive care. Avoid nephrotoxic agents. (Harvey Handley MD) Chiquita Sher Jul 25, 2016 09:48 Harvey Handley MD Jul 25, 2016 10:12
[2016-07-25] MEDS: ACETAMINOPHEN/HYDROcodone 325 MG/10 MG TAB PO PRN (11:32)
[2016-07-25] MEDS: AZITHROMYCIN INJ 500 MG in SODIUM CHLOR 0.9% 250 ML INJ 250 ML IV SCH (11:33)
[2016-07-25] MEDS ORDERED: HYDROmorphone HCL PF 1 MG/ML VIAL IV PUSH ONE (11:45)
[2016-07-25] MEDS: ACETAMINOPHEN 325 MG TAB PO PRN (12:10)
[2016-07-25] MEDS: ONDANSETRON HCL 4 MG/2 ML VIAL IV PUSH SCH (14:51)
[2016-07-25] MEDS: ONDANSETRON HCL 4 MG/2 ML VIAL IV PRN (16:00)
[2016-07-25] MEDS: REMOVE OLD NICODERM (NICOTINE) PATCH TD SCH (20:51)
[2016-07-25] MEDS: ATORVASTATIN 80 MG TAB PO SCH (20:51)
[2016-07-26] VITALS (14 sets, daily range): BP systolic 131–160; BP diastolic 67–88; PULSE 73–86; RESP 16–31; TEMP 98–99.9; O2SAT 90–98
[2016-07-26] MEDS: MORPHINE SULFATE 4 MG/ML INJ IV PRN ×3 (00:04→19:27)
[2016-07-26] MEDS: RESP: ALBUTEROL 2.5 MG/IPRATROPIUM 0.5 MG NEB (SCH) NEB ×7 (00:12→23:16)
[2016-07-26] MEDS: hydrALAZINE HCL 50 MG TAB PO SCH ×3 (02:21→17:41)
[2016-07-26] MEDS: METOCLOPRAMIDE HCL 10 MG/2 ML VIAL IV SCH ×3 (03:43→20:31)
[2016-07-26] MEDS: methylPREDNISolone SOD SUCC 40 MG/1 ML VIAL IV PUSH SCH ×2 (04:37→17:41)
[2016-07-26] MEDS: METOPROLOL TARTRATE 25 MG TAB PO SCH ×3 (05:33→20:30)
[2016-07-26] MEDS: INSULIN NovoLIN REGULAR SUPPLEMENTAL SCALE SQ SCH ×5 (05:34→23:17)
[2016-07-26 06:12] LABS: AUTOMATED NEUTROPHIL # 9.4 TH/MM3 (1.8-7.7); BASOPHIL # 0.1 TH/MM3 (0-0.2); BASOPHIL % 0.5 % (0.0-2.0); EOSINOPHIL % 0.3 % (0.0-4.0); HEMO FLAGS DIFF FINAL; LYMPH % 14.3 % (9.0-44.0); LYMPHOCYTE # 1.7 TH/MM3 (1.0-4.8); MEAN CELL VOLUME 95.3 FL (80.0-100.0); MEAN CORPUSCULAR HEMOGLOBIN 31.4 PG (27.0-34.0); MEAN CORPUSCULAR HGB CONC 32.9 % (32.0-36.0); MONO % 6.9 % (0.0-8.0); PLATELET COUNT 304 TH/MM3 (150-450); RED BLOOD COUNT 3.14 MIL/MM3 (4.50-5.90); RED CELL DISTRIBUTION WIDTH 13.9 % (11.6-17.2)
[2016-07-26 06:40] LABS: BICARBONATE 27.9 MEQ/L (21.0-32.0); POTASSIUM 4.3 MEQ/L (3.5-5.1)
--- NOTE | 2016-07-26 07:52 | HHI.PR ---
Subjective Remarks Patient improving, remains weak. Discussed stent and stone removal with patient and family. At this time, we have agreed for the patient to be discharged with close follow-up in clinic in 2 weeks with plans to remove stents and stones within the next month. Objective Vital Signs Vital Signs Date Time Temp Pulse Resp B/P Pulse Ox O2 Delivery O2 Flow Rate FiO2 07/26/16 06:00 77 07/26/16 04:00 73 07/26/16 04:00 98.8 73 20 160/79 92 07/26/16 02:00 79 07/26/16 00:00 75 07/26/16 00:00 98.7 75 16 149/88 93 07/25/16 22:00 79 07/25/16 20:27 95 Nasal Cannula 3.00 07/25/16 20:00 83 07/25/16 20:00 98.3 83 16 149/87 94 07/25/16 19:00 2.00 96 07/25/16 18:00 80 07/25/16 17:00 22 07/25/16 16:00 98.5 82 26 151/73 95 07/25/16 16:00 82 07/25/16 14:00 88 07/25/16 12:45 26 07/25/16 12:45 26 07/25/16 12:00 100.1 96 28 129/63 91 07/25/16 12:00 96 07/25/16 10:00 83 07/25/16 08:00 98.9 77 30 160/84 94 07/25/16 08:00 77 I/O 07/25/16 07/25/16 07/25/16 07/26/16 07/26/16 07/26/16 07:00 15:00 23:00 07:00 15:00 23:00 Intake Total 791 ml 996 ml 305 ml 81 ml Output Total 1550 ml 900 ml 1200 ml 1050 ml Balance -759 ml 96 ml -895 ml -969 ml Intake Oral 700 ml 720 ml 100 ml IV Total 91 ml 276 ml 205 ml 81 ml Output Urine Total 1550 ml 900 ml 1200 ml 1050 ml # Voids 50 # Bowel Movements 0 0 Result Diagram: 07/26/16 0417 07/26/16 0417 Imaging Last 72 hours Impressions Chest X-Ray 07/09/16 0000 Signed Impressions: Service Date/Time: Saturday, July 09, 2016 10:44 - CONCLUSION: Left subclavian central line tip is in the superior aspect of the SVC. No pneumothorax is visualized. Otherwise, stable exam. Patel Palmer MD Chest X-Ray 07/09/16 0000 Signed Impressions: Service Date/Time: Saturday, July 09, 2016 08:23 - CONCLUSION: 1. Persistent severe diffuse left lung airspace consolidation with likely left pleural effusion. 2. Stable subtle airspace consolidation/opacity in the right midlung zone. Patel Palmer MD Chest X-Ray 07/08/16 0000 Signed Impressions: Service Date/Time: Friday, July 08, 2016 11:08 - CONCLUSION: 1. Endotracheal tube is present with tip measuring 5.7 cm from the farooq. 2. Severe diffuse left lung airspace consolidation, increased from yesterday's exam. There is also new mild consolidation versus atelectasis in the right midlung zone. Patel Palmer MD Abdomen/Pelvis CT 07/07/16 1110 Signed Impressions: Service Date/Time: Thursday, July 07, 2016 11:31 - CONCLUSION: 1. Renal stones and stents in good position as described above. Yosvany Fuentes MD FACR Chest X-Ray 07/07/16 0000 Signed Impressions: Service Date/Time: Thursday, July 07, 2016 12:49 - CONCLUSION: Extensive airspace disease throughout the left upper lobe characteristic of pneumonitis. Vlad Arteaga MD Chest CT 07/07/16 0000 Signed Impressions: Service Date/Time: Thursday, July 07, 2016 16:09 - CONCLUSION: 1. Consolidative changes in the left upper lobe. There is suspicious adenopathy in the mediastinum. This may be more than an inflammatory process. 2. Bronchoscopy may be the easiest way to make a diagnosis of a neoplastic process. Yosvany Fuentes MD FACR Last 48 hours Impressions Chest X-Ray 07/09/16 0000 Signed Impressions: Service Date/Time: Saturday, July 09, 2016 10:44 - CONCLUSION: Left subclavian central line tip is in the superior aspect of the SVC. No pneumothorax is visualized. Otherwise, stable exam. Patel Palmer MD Chest X-Ray 07/09/16 0000 Signed Impressions: Service Date/Time: Saturday, July 09, 2016 08:23 - CONCLUSION: 1. Persistent severe diffuse left lung airspace consolidation with likely left pleural effusion. 2. Stable subtle airspace consolidation/opacity in the right midlung zone. Patel Palmer MD Chest X-Ray 07/08/16 0000 Signed Impressions: Service Date/Time: Friday, July 08, 2016 11:08 - CONCLUSION: 1. Endotracheal tube is prese midlung zone. Patel Palmer MD Objective Remarks NAD, AAOx3 Ab S/NT Assessment and Plan Problem List: (1) Urinary tract infection ICD Code: N39.0 Status: Acute (2) COPD (chronic obstructive pulmonary disease) ICD Code: J44.9 Status: Acute (3) Sepsis ICD Code: A41.9 Status: Acute Assessment and Plan -Plan to follow-up in clinic in 2 weeks with potential surgery in 4-6 weeks. -Plan discussed with patient and daughter who agree -Please call with questions Problem Qualifiers (1) Urinary tract infection: Qualified Code: T83.512A - Urinary tract infection associated with nephrostomy catheter, initial encounter Jn Baron MD Jul 26, 2016 07:52
--- NOTE | 2016-07-26 08:33 | HHI.PR ---
Subjective Remarks alert no sob at rest on O2 via N/C Objective Vital Signs Date Time Temp Pulse Resp B/P Pulse Ox O2 Delivery O2 Flow Rate FiO2 07/26/16 07:17 95 Nasal Cannula 3.00 07/26/16 06:00 77 07/26/16 04:00 73 07/26/16 04:00 98.8 73 20 160/79 92 07/26/16 02:00 79 07/26/16 00:00 75 07/26/16 00:00 98.7 75 16 149/88 93 07/25/16 22:00 79 07/25/16 20:27 95 Nasal Cannula 3.00 07/25/16 20:00 83 07/25/16 20:00 98.3 83 16 149/87 94 07/25/16 19:00 2.00 96 07/25/16 18:00 80 07/25/16 17:00 22 07/25/16 16:00 98.5 82 26 151/73 95 07/25/16 16:00 82 07/25/16 14:00 88 07/25/16 12:45 26 07/25/16 12:45 26 07/25/16 12:00 100.1 96 28 129/63 91 07/25/16 12:00 96 07/25/16 10:00 83 I/O 07/25/16 07/25/16 07/25/16 07/26/16 07/26/16 07/26/16 07:00 15:00 23:00 07:00 15:00 23:00 Intake Total 791 ml 996 ml 305 ml 81 ml Output Total 1550 ml 900 ml 1200 ml 1050 ml Balance -759 ml 96 ml -895 ml -969 ml Intake Oral 700 ml 720 ml 100 ml IV Total 91 ml 276 ml 205 ml 81 ml Output Urine Total 1550 ml 900 ml 1200 ml 1050 ml # Voids 50 # Bowel Movements 0 0 Result Diagram: 07/26/16 0417 07/26/16 0417 Objective Remarks Last Impressions Chest X-Ray 07/24/16 0000 Signed Impressions: Service Date/Time: Sunday, July 24, 2016 07:46 - CONCLUSION: 1. Scattered patchiness within the left lung consistent with atelectasis and/or pneumonia. Clinical correlation is recommended. 2. Right perihilar atelectasis. 3. Multiple tubes and lines are in good positions. Elbert Hector MD Soft Tissue Ultrasound 07/12/16 0000 Signed Impressions: Service Date/Time: Tuesday, July 12, 2016 19:25 - CONCLUSION: Well- defined heterogeneous mass which is nonspecific but likely represents a sebaceous cyst. Alexandro De La O MD Abdomen X-Ray 07/12/16 0000 Signed Impressions: Service Date/Time: Tuesday, July 12, 2016 16:59 - CONCLUSION: Nonspecific, benign abdomen appearance. Patel Torres MD Abdomen/Pelvis CT 07/07/16 1110 Signed Impressions: Service Date/Time: Thursday, July 07, 2016 11:31 - CONCLUSION: 1. Renal stones and stents in good position as described above. Yosvany Fuentes MD FACR Chest CT 07/07/16 0000 Signed Impressions: Service Date/Time: Thursday, July 07, 2016 16:09 - CONCLUSION: 1. Consolidative changes in the left upper lobe. There is suspicious adenopathy in the mediastinum. This may be more than an inflammatory process. 2. Bronchoscopy may be the easiest way to make a diagnosis of a neoplastic process. 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
[2016-07-26] MEDS: LEVOFLOXACIN 750 MG PREMIX INJ 150 ML IV SCH (08:38)
[2016-07-26] MEDS: ONDANSETRON HCL 4 MG/2 ML VIAL IV PUSH SCH (08:38)
[2016-07-26] MEDS: SODIUM CHLORIDE 0.9% FLUSH 5 ML FLUSH IVF SCH ×2 (08:39)
[2016-07-26] MEDS: ARTIFICIAL TEARS OPTH OINT 3.5 APPLIC/3.5 GM TUBO EACH EYE SCH ×2 (08:39→20:31)
[2016-07-26] MEDS: SODIUM CHLORIDE 0.9% FLUSH 5 ML FLUSH FLUSH SCH ×2 (08:39→20:31)
[2016-07-26] MEDS: PANTOPRAZOLE SODIUM 40 MG VIAL IV PUSH SCH (08:39)
[2016-07-26] MEDS: THIAMINE HCL 100 MG TAB PO SCH (08:40)
[2016-07-26] MEDS: ENOXAPARIN SODIUM 40 MG/0.4 ML SYRINGE SQ SCH (08:41)
[2016-07-26] MEDS: SENNOSIDES SYRUP 8.8 MG/5 ML CUP OG SCH (08:41)
[2016-07-26] MEDS: DOCUSATE SODIUM 100 MG/10 ML UDC OG SCH (08:41)
[2016-07-26] MEDS: NICOTINE 21 MG/24 HR PATCH TD SCH (08:42)
--- NOTE | 2016-07-26 09:40 | HHI.FPPN ---
Subjective Remarks Overnight, patient had bp ranging from 149 and 160/79-88, O2 sat 92-95% on 3 L nasal cannula, p 70s, but otherwise afebrile and vital signs stable. When I went to see the patient this morning, Pt was asleep. Per daughter, first time he has slept in 3 days, so deferred physical exam. Per daughter, patient c/o of back pain 2/2 to bed. She denied that he is complaining of any chest pain or shortness of breath. Visit patient again in the. Patient again asleep, but awoke with physical exam. Patient complaining of inability to sleep, back pain, constipation. Denies any fever, chills, bloating. (Alexandro García MD R1) Objective Vitals Vital Signs Date Time Temp Pulse Resp B/P Pulse Ox O2 Delivery O2 Flow Rate FiO2 07/26/16 07:17 95 Nasal Cannula 3.00 07/26/16 07:00 2.00 93 07/26/16 06:00 77 07/26/16 04:00 73 07/26/16 04:00 98.8 73 20 160/79 92 07/26/16 02:00 79 07/26/16 00:00 75 07/26/16 00:00 98.7 75 16 149/88 93 07/25/16 22:00 79 07/25/16 20:27 95 Nasal Cannula 3.00 07/25/16 20:00 83 07/25/16 20:00 98.3 83 16 149/87 94 07/25/16 19:00 2.00 96 07/25/16 18:00 80 07/25/16 17:00 22 07/25/16 16:00 98.5 82 26 151/73 95 07/25/16 16:00 82 07/25/16 14:00 88 07/25/16 12:45 26 07/25/16 12:45 26 07/25/16 12:00 100.1 96 28 129/63 91 07/25/16 12:00 96 07/25/16 10:00 83 I/O 07/25/16 07/25/16 07/25/16 07/26/16 07/26/16 07/26/16 07:00 15:00 23:00 07:00 15:00 23:00 Intake Total 791 ml 996 ml 305 ml 81 ml Output Total 1550 ml 900 ml 1200 ml 1050 ml Balance -759 ml 96 ml -895 ml -969 ml Intake Oral 700 ml 720 ml 100 ml IV Total 91 ml 276 ml 205 ml 81 ml Output Urine Total 1550 ml 900 ml 1200 ml 1050 ml # Voids 50 # Bowel Movements 0 0 (Alexandro García MD R1) Result Diagram: 07/26/1641607/26/16416 Imaging Last Impressions Chest X-Ray 07/24/16 0000 Signed Impressions: Service Date/Time: Sunday, July 24, 2016 07:46 - CONCLUSION: 1. Scattered patchiness within the left lung consistent with atelectasis and/or pneumonia. Clinical correlation is recommended. 2. Right perihilar atelectasis. 3. Multiple tubes and lines are in good positions. Elbert Hector MD Soft Tissue Ultrasound 07/12/16 0000 Signed Impressions: Service Date/Time: Tuesday, July 12, 2016 19:25 - CONCLUSION: Well- defined heterogeneous mass which is nonspecific but likely represents a sebaceous cyst. Alexandro De La O MD Abdomen X-Ray 07/12/16 0000 Signed Impressions: Service Date/Time: Tuesday, July 12, 2016 16:59 - CONCLUSION: Nonspecific, benign abdomen appearance. Patel Torres MD Abdomen/Pelvis CT 07/07/16 1110 Signed Impressions: Service Date/Time: Thursday, July 07, 2016 11:31 - CONCLUSION: 1. Renal stones and stents in good position as described above. Yosvany Fuentes MD FACR Chest CT 07/07/16 0000 Signed Impressions: Service Date/Time: Thursday, July 07, 2016 16:09 - CONCLUSION: 1. Consolidative changes in the left upper lobe. There is suspicious adenopathy in the mediastinum. This may be more than an inflammatory process. 2. Bronchoscopy may be the easiest way to make a diagnosis of a neoplastic process. Yosvany Fuentes MD FACR Objective Remarks GEN: Well-developed, well-nourished patient. Awake and alert. Pt able to answer questions. No restraints. Wearing nasal canula on 2L. NECK: Supple, left internal jugular central line clean, dry, intact CV: Regular rate and rhythm with a grade 3/6 systolic murmur LUNGS: Anterior and lateral lung alba auscultated. Clear breath sounds bilaterally with good air movement, decreased, rhonchorous breath sounds at lung bases. No wheezes or crackles. ABD: Soft nontender slightly distended : + urine output via [place] NEURO/PSYCH: Alert and oriented. Patient able to respond to questions. Slow speech. Ext: Extremities warm and well-perfused. No lower extremity edema (Alexandro García MD R1) Date of Insertion: Jul 18, 2016 Line: Central Venous Catheter Side: Left Location: Internal, Jugular (Alexandro García MD R1) A/P Assessment and Plan 55 year old male with h/o HTN, renal calculi, s/p bilateral ureteral stent placements presented due to bilateral flank pain more significant on the left x 3 days, admitted for left-sided pneumonia, sepsis, possible UTI. Critical care was consulted on 07/08 due to acute worsening of symptoms associated with respiratory distress. Neuro: Sedation discontinued due to extubation, acute metabolic encephalopathy -Sedation discontinued -Pt awake and alert with slow speech. -EEG mild diffuse disturbances of cerebral function. No epileptiform features. Appears essentially normal at times. Pulm: Left legionella pneumonia, severe ARDS, COPD, suspicious adenopathy in the mediastinum Pulmonary consulted: appreciate recommendations * Bronchoscopy preformed on 07/17, samples were sent for culture * Bronchial washings significant for heavy growth of normal respiratory lashanda. No acid fast bacilli or fungal elements appreciated. -Extubated, currently tolerating 3L NC, continue pulmonary toilet Imaging: * CXR 07/24: Scattered patches in the left lung consistent with atelectasis/ pneumonia, clinical correlation recommended. Right perihilar atelectasis. Multiple lines and tubes in good position. * CXR 07/20: Left subclavian central venous catheter out. Other lines and tubes unchanged. No significant change, left greater than right bilateral airspace opacities and small left pleural effusion. * CXR 07/18: No significant change * CXR 07/17: Worsening consolidation and volume loss on the left * CXR 07/16: No significant change * CXR 07/15: Improved aeration of the left upper lobe compared to prior examination. Mild infiltrate right upper lobe. * CXR 07/09: Persistent severe diffuse left lung air space consolidation with likely left pleural effusion. Stable subtle airspace consolidation/opacity the in the right midlung * Chest CT: Consolidative changes in the left upper lobe. There is suspicious adenopathy in the mediastinum. This may be more than an inflammatory process Medications: * Albuterol and Duonebs * Solu-Medrol, 40mg Q12 Cardiac: HLD, HTN -ACS negative -Echo 07/10: Mild to moderate LVH, normal systolic function, ejection fraction estimated to be 60%. No regional wall motion abnormalities. Mild mitral valve regurgitation. Medications: * Amlodipine 10 mg * Hydralazine 50mg PO q8 and PRN * Metoprolol 50 mg q8 * Atorvastatin 80 mg * Labetalol 20 mg PRN : S/P bilateral ureteral stents, JASON -Creatinine 1.26, improving. + UOP Urology consulted: Appreciate recommendations * Once clinical picture improves, may remove stents versus attempted ureteroscopy and laser lithotripsy * Will continue to follow Nephrology consulted: appreciate recommendations * JASON likely due to decreased renal perfusion * Minimize IVF. Double concentrate all fluids. Monitor fluid status, I&O's, electrolytes * Bump in Cr may have been due to aggressive diuresis * Free water 300 mL every 4h GI: -On tube feeds- Glucerna -Metoclopramide schedule q8h -Protonix 40mg IV daily for GI prophylaxis -Colace and senna ID: Legionella pneumonia, leukocytosis, septic shock, -Leukocytosis improving, still receiving steroids -Afebrile since 07/09 -Legionella antigen positive in urine -1 of 2 blood culture on 07/07 positive for staph S/P coagulase-negative, likely due to contamination -Repeat blood cultures, sputum cultures, urine cx NGTD -Urine eosinophils: Negative -Follow repeat Urine and sputum culture 07/16 ID consulted: Appreciate recommendations * Flagyl discontinued (07/11-07/24) * IV and antibiotics plan to transition to by mouth per ID recommendation: * Azithromycin 07/08- * Levaquin 07/10- Discontinued ABX: * Cefepime (07/11-07/23) * Zyvox 07/09-07/11 * Zosyn 07/07-07/11 * Vancomycin 07/07-07/09, discontinued due to concern for drug fever and allergic interstitial nephritis Endo: SSI with Accu-Chek every 6h Electrolytes: Potassium within normal limits. Will continue to monitor and replete as necessary. DVT Prophylaxis - Lovenox Discharge Planning Timetable unknown. Pending respiratory improvement. If respiratory status continues to improve, consider transfer from the [facility] within the next 1-2 days. mago Fuller (Alexandro García MD R1) Attending Attestation Pt. examined and cased discussed with resident physician I have read the above note and agree with the assessment/plan as discussed with me I was involved in all medical decision making for this patient Elgin Antonio MD (Elgin Antonio MD) Problem List: (1) Legionella pneumonia Status: Acute (2) Acute respiratory failure with hypoxia Status: Resolved (3) Acute renal failure Status: Acute (4) Sepsis Status: Resolved (5) COPD (chronic obstructive pulmonary disease) Status: Acute (Alexandro García MD R1) Problem List: (1) Legionella pneumonia Status: Acute Plan: Currently extubated (07/25/16) after critical care management of ARDS due to legionella pneumonia Current Antibiotics based on ID Recs:: * Azithromycin 07/08- * Levaquin 07/10- Pulmonary toilet including: * Albuterol and Duonebs * Solu-Medrol, 40mg Q12 * Incentive Spirometer * Supplemental oxygen Discontinued ABX: * Flagyl (07/11-07/24) * Cefepime (07/11-07/23) * Zyvox 07/09-07/11 * Zosyn 07/07-07/11 * Vancomycin 07/07-07/09, discontinued due to concern for drug fever and allergic interstitial nephritis Pulmonary consulted: appreciate recommendations * Bronchoscopy preformed on 07/17 * Bronchial washings significant for heavy growth of normal respiratory lashanda. No acid fast bacilli or fungal elements appreciated. Imaging: * CXR 07/24: Scattered patches in the left lung consistent with atelectasis/ pneumonia, clinical correlation recommended. Right perihilar atelectasis. Multiple lines and tubes in good position. * CXR 07/20: Left subclavian central venous catheter out. Other lines and tubes unchanged. No significant change, left greater than right bilateral airspace opacities and small left pleural effusion. * CXR 07/18: No significant change * CXR 07/17: Worsening consolidation and volume loss on the left * CXR 07/16: No significant change * CXR 07/15: Improved aeration of the left upper lobe compared to prior examination. Mild infiltrate right upper lobe. * CXR 07/09: Persistent severe diffuse left lung air space consolidation with likely left pleural effusion. Stable subtle airspace consolidation/opacity the in the right midlung * Chest CT: Consolidative changes in the left upper lobe. There is suspicious adenopathy in the mediastinum. This may be more than an inflammatory process -Afebrile since 07/09 -Legionella antigen positive in urine -1 of 2 blood culture on 07/07 positive for staph S/P coagulase-negative, likely due to contamination -Repeat blood cultures, sputum cultures, urine cx NGTD -Urine eosinophils: Negative -Follow repeat Urine and sputum culture 07/16 (2) Sepsis Status: Resolved Plan: Secondary to legionella pneumonia leading to severe ARDS See treatment for pneumonia (3) Acute respiratory failure with hypoxia Status: Resolved Plan: Currently extubated Continue breathing treatments and supplemental oxygen See treatment for Legionella pneumonia (4) Acute renal failure Status: Acute Plan: S/P bilateral ureteral stents, JASON -Creatinine 1.26, improving. + UOP Urology consulted: Appreciate recommendations * Once clinical picture improves, may remove stents versus attempted ureteroscopy and laser lithotripsy * Will continue to follow Nephrology consulted: appreciate recommendations * JASON likely due to decreased renal perfusion * Minimize IVF. Double concentrate all fluids. Monitor fluid status, I&O's, electrolytes * Bump in Cr may have been due to aggressive diuresis * Free water 300 mL every 4h Electrolytes: Potassium within normal limits. Will continue to monitor and replete as necessary. (5) ARDS (adult respiratory distress syndrome) Status: Resolved Plan: s/p Prone Therapy due to severe ARDS secondary to legionella pneumonia See treatment for legionella pneumonia (6) Encephalopathy Status: Resolved Plan: Sedation discontinued due to extubation, acute metabolic encephalopathy -Sedation discontinued -Pt awake and alert with slow speech. -EEG mild diffuse disturbances of cerebral function. No epileptiform features. Appears essentially normal at times. (7) Hypertension Status: Acute Plan: ACS evaluation negative Echo 07/10: Mild to moderate LVH, normal systolic function, ejection fraction estimated to be 60%. No regional wall motion abnormalities. Mild mitral valve regurgitation. Medications: * Amlodipine 10 mg * Hydralazine 50mg PO q8 and PRN * Metoprolol 50 mg q8 * Labetalol 20 mg PRN (8) Hyperlipidemia Status: Acute Plan: ACS workup negative * Atorvastatin 80 mg (9) Nutrition, metabolism, and development symptoms Status: Acute Plan: Diet: ADA Diet -Metoclopramide schedule q8h -Protonix 40mg IV daily for GI prophylaxis -Colace and senna Endo: SSI with Accu-Chek every 6h Electrolytes: Potassium within normal limits. Will continue to monitor and replete as necessary. DVT Prophylaxis - Lovenox (Elgin Antonio MD) Problem Qualifiers (1) Acute renal failure: Qualified Code: N17.9 - Acute renal failure, unspecified acute renal failure type (2) Sepsis: Qualified Code: A41.9 - Sepsis, due to unspecified organism (3) Hypertension: Qualified Code: I10 - Essential hypertension Alexandro García MD R1 Jul 26, 2016 09:40 Elgin Antonio MD Jul 26, 2016 20:50
--- NOTE | 2016-07-26 10:06 | HHI.CCPN ---
Subjective Remarks/Hospital Course The patient is a 55-year-old male with a past medical history of hypertension, renal calculi, status post bilateral ureteral stent placement in April,. He presented to the [facility] ED with a 3-day history of bilateral flank pain associated with fever and severe body aches. Just prior to admission, the patient had gross hematuria, per his daughter, and had decreased p.o. intake. The patient denied any shortness of breath or chest pain. Due to his abdominal pain, a CT scan of the abdomen and pelvis was obtained which showed renal stones and stent in place. An initial chest x-ray in the ED showed extensive airspace disease throughout the left upper lobe characteristic of pneumonia. He subsequently underwent a CT scan of the chest which showed consolidative changes in the left upper lobe along with suspicious adenopathy in the mediastinum. His initial creatinine level was 1.6 and the patient was placed on broad-spectrum antibiotics in addition to IV fluids. Later that day, a [facility] was called for respiratory distress and the patient was placed on a nonrebreather mask and transferred to the [facility]. When seen in the ICU he was tachypneic, tachycardic, and had a temperature of 103F. The patient was subsequently intubated and placed on full mechanical ventilation. A chest x-ray post intubation showed severe diffuse left lung airspace consolidation and a new mild consolation versus atelectasis in the right mid-lung zone. His nasal washing on arrival was negative for influenza, and blood cultures and urine culture from admission showed no growth to date. 07/09 Patient is sedated with versed, Fentanyl and intubated. Now on PRVC with RR 20, TV 550, IT:1, PEEP:15 and FIO2 100%. Afebrile. His Legionella urinary AG is positive. Renal function worse today with Cr 1.86 from 1.30 07/10: Patient remains very critical. Placed on Prone therapy yesterday for worsening respiratory status and severe hypoxia. Worsening renal function- creatinine increased from 1.8-2.8 today, urology following, will consult nephrology. Remains on 4 mics per minute of Levophed, urine output adequate 1.9 L in 24 hours. Currently on broad-spectrum antibiotics per ID on Zosyn and azithromycin Zyvox. I have added Levaquin for double coverage for Legionella 07/11: Remains intubated sedated. FiO2 at 50%. Chest x-ray shows bilaterally improving aeration. We'll reduce PEEP to 12. Urine output is adequate but creatinine has increased to 3. 07/12: Patient remains on prone therapy, remains critically ill but slowly his improving oxygenation. Currently on 10 of PEEP and 50% oxygen. Urine output is 1.7 L in 24 hours, increase in BUN to 79 creatinine is 3.2. We'll start weaning and starting today 07/13: Remains critically ill, but showing continued signs of improvement. UO >4L , Cr improved from 3.2 to 2.8. On weaning doses of Flolan. Maintaining oxygen saturation above 90% on 45% FiO2. WBC count is trending down. Will discontinue prone therapy today 07/14 Patient is off Rotoprone bed on ACV with RR 18, TV 600, PEEP: 10 and FIO2 50%. Sedated with Diprivan/Fentanyl and Versed. Afebrile.Renal function worse today with Cr: 3.17 today from 2.79 with UO 3600ml in 24 hrs. 07/15 Patient remains sedated and intubated. Afebrile. Now on ACV with RR 18, TV 600< PEEP:10 and FIO2 increased 60%. 07/16: Tmax 99.1. Tolerating tube feeding. Positive BM. Arousable on the ventilator. 07/17: Currently afebrile. Worsening chest x-ray today. Patient received fiberoptic bronchoscopy which essentially cleared secretions from left lingula/ lower lobe. Arousable and does follow commands. 07/18: Afebrile. Status post bronchoscopy yesterday. Tolerating tube feeds. Positive BM. Arousable and does follow commands. Nurses nursing "slight" tremor left upper extremity occasionally. 07/19: Sedated, orally intubated on mechanical ventilation 2/2: Remains sedated, orally intubated on mechanical ventilation. Tolerating tube feeds. PEEP remains at +10 FiO2 50% 2/3: Remains sedated, orally intubated on mechanical ventilation. Tolerating tube feeds. PEEP decreased to +8 today, FiO2 40%. 07/22 Patient is sedated with Fentanyl and Diprivan and intubated. On ACV with RR 18, TV 600, PEEP: 8 and FIO2 40%. Afebrile. 07/23 No acute events overnight. Sedated with Diprivan and Fentanyl. Patient tolerated CPAP for most of day yesterday. Afebrile. 07/24 Patient remains sedated and intubated. Tolerated CPAP trials for several hrs yesterday. 07/25 Patient s/p extubation yesterday. On 2L oxygen with good sats. Afebrile. 07/26 Patient comfortable on 3L O2 by NC with sat of 95%. Afebrile. Strength improving. Objective Vital Signs Date Time Temp Pulse Resp B/P Pulse Ox O2 Delivery O2 Flow Rate FiO2 07/26/16 07:17 95 Nasal Cannula 3.00 07/26/16 07:00 93 07/26/16 06:00 77 07/26/16 04:00 98.8 20 160/79 Intake and Output 07/25/16 07/25/16 07/26/16 08:00 16:00 00:00 Intake Total 791 ml 996 ml 305 ml Output Total 1550 ml 900 ml 1200 ml Balance -759 ml 96 ml -895 ml Result Diagram: 07/26/16 0417 07/26/16 0417 Imaging Last Impressions Chest X-Ray 07/24/16 0000 Signed Impressions: Service Date/Time: Sunday, July 24, 2016 07:46 - CONCLUSION: 1. Scattered patchiness within the left lung consistent with atelectasis and/or pneumonia. Clinical correlation is recommended. 2. Right perihilar atelectasis. 3. Multiple tubes and lines are in good positions. Elbert Hector MD Soft Tissue Ultrasound 07/12/16 0000 Signed Impressions: Service Date/Time: Tuesday, July 12, 2016 19:25 - CONCLUSION: Well- defined heterogeneous mass which is nonspecific but likely represents a sebaceous cyst. Alexandro De La O MD Abdomen X-Ray 07/12/16 0000 Signed Impressions: Service Date/Time: Tuesday, July 12, 2016 16:59 - CONCLUSION: Nonspecific, benign abdomen appearance. Patel Torres MD Abdomen/Pelvis CT 07/07/16 1110 Signed Impressions: Service Date/Time: Thursday, July 07, 2016 11:31 - CONCLUSION: 1. Renal stones and stents in good position as described above. Yosvany Fuentes MD FACR Chest CT 07/07/16 0000 Signed Impressions: Service Date/Time: Thursday, July 07, 2016 16:09 - CONCLUSION: 1. Consolidative changes in the left upper lobe. There is suspicious adenopathy in the mediastinum. This may be more than an inflammatory process. 2. Bronchoscopy may be the easiest way to make a diagnosis of a neoplastic process. Yosvany Fuentes MD FACR Objective Remarks GENERAL: Patient lying in bed, in no acute resp distress SKIN: Warm and dry. No obvious rashes HEAD: Normocephalic. EYES: No scleral icterus. No injection or drainage. NECK: Supple, trachea midline. No JVD or lymphadenopathy. CARDIOVASCULAR: Regular rate and rhythm. No murmurs, gallops, or rubs. RESPIRATORY: Breath sounds equal bilaterally. No accessory muscle use. GASTROINTESTINAL: Abdomen soft, mildly tender to palpation in the LLQ, nondistended. MUSCULOSKELETAL: No cyanosis, or edema. Strength 3/5 in bilateral lower extremities Neuro: Awake and alert, interactive with examiner, pleasant Date of Insertion: Jul 18, 2016 Line: Central Venous Catheter Side: Left Location: Internal, Jugular A/P Assessment and Plan Plan Neuro/Psych: Acute toxic metabolic encephalopathy secondary to likely Legionella pneumonia -Resolved -Awake and alert, monitor neuro status, avoid sedatives -Continue with thiamine 100 mg daily. Continue close neuro monitoring -EEG 2/2 - encephalopathy - no epileptiform activity. Pulm: Acute hypoxemic respiratory failure secondary to pneumonia/community acquired ARDS Continue with oxygen keep sat >92% Continue Bronchodilators, incentive spirometry Solumedrol 40mg q12 Pulm is following - Dr. Jaimes Status post fiberoptic bronchoscopy 07/17. BAL: NGTD CV: Hypertension History dyslipidemia -Monitor HR and BP keep MAP>65mmHg. -2D echo 07/10/16-EF 60%, moderate LVH -On Hydralazine 50mg Q8, Norvasc 10mg daily, Metoprolol 50mg Q8 - On Lipitor 80 mg by mouth daily for dyslipidemia Home medication atorvastatin 80 mg daily for dyslipidemia. Home medication Norvasc 10 milligrams daily for hypertension. /renal: Urinary tract infection History of renal calculi with bilateral ureteral stent placement in April JASON-improving -Nephrology following - Dr. Handley -Urology service was consulted for hx of flank pain and renal calculi with ureteral stent placement - CT abdomen pelvis showed stents in good position Plan for stent removal/ureteroscopy with possible lithotripsy in 4-6 weeks, Follow-up in clinic in 2 weeks -Monitor renal function, I/O's, electrolytes replacement as needed. GI Protein calorie malnutrition/moderate Gastroesophageal reflux disease -On regular PO diet -Protonix 40mg IV daily for GI prophylaxis -Bowel regimen with Colace and senna ID: Likely Legionella pneumonia -Continue with ABX per ID Continue Azithromycin IV, Levaquin , off Cefepime and Flagyl Likely transition to oral antibiotics -07/17 - bronchus - NGTD -07/16 - sputum - heavy growth -Blood cultures - 07/09 - no growth -Blood Cultures - 07/08 - no growth -07/08 Legionella urinary antigen positive -07/07 BC : GPC 06/21 bottles-coag neg staph, probable contaminant -07/07 urine no growth- Sputum - 07/07 no growth Endo: Hyperglycemia/steroid-induced -SSI with Accu-Chek q6 hours for glycemic control Heme: Leukocytosis -Monitor CBC Proph: -GI prophylaxis with Protonix 40 mg daily and DVT prophylaxis with SCDs and Lovenox subcu. PT/OT eval and treat Lines: -Peripheral IV, L IJ CVL 07/18 , d/c central line Follow up on labs Level 3 Pt is comfortable on NC, no distress Hemodynamically stable Critical care will sign off Thank you for allowing us to participate in the care of this patient It was a pleasure to take care of Mr. Ambrocio, very pleasant gentleman Physician I have seen and examined the patient with the resident I agree with the assessment and plan as above Kimmy Fuller MD R1 Jul 26, 2016 10:06 Antoine Turner MD Jul 27, 2016 09:35
[2016-07-26] MEDS: AZITHROMYCIN INJ 500 MG in SODIUM CHLOR 0.9% 250 ML INJ 250 ML IV SCH (10:53)
[2016-07-26] MEDS: ACETAMINOPHEN/HYDROcodone 325 MG/10 MG TAB PO PRN ×2 (10:54→19:27)
--- NOTE | 2016-07-26 11:12 | HHI.NPPN ---
Subjective General Problems: Anemia, Edema Renal Failure: Acute Interval History Doing well. Having some generalized pain. Renal function is stable. (Chiquita Sher) Review of Systems General Constitutional: Fatigue (Chiquita Sher) Musculoskeletal MS: Pain/Stiffness (Chiquita Sher) Objective Data Data 07/25/16 07/26/16 19:00 07:00 Intake Total 996 ml 386 ml Output Total 900 ml 2250 ml Balance 96 ml -1864 ml Intake Oral 720 ml 100 ml IV Total 276 ml 286 ml Output Urine Total 900 ml 2250 ml # Bowel Movements 0 Vital Signs Date Time Temp Pulse Resp B/P Pulse Ox O2 Delivery O2 Flow Rate FiO2 07/26/16 08:00 98.0 81 31 149/79 90 07/26/16 08:00 81 07/26/16 07:17 95 Nasal Cannula 3.00 07/26/16 07:00 2.00 93 07/26/16 06:00 77 07/26/16 04:00 73 07/26/16 04:00 98.8 73 20 160/79 92 07/26/16 02:00 79 07/26/16 00:00 75 07/26/16 00:00 98.7 75 16 149/88 93 07/25/16 22:00 79 07/25/16 20:27 95 Nasal Cannula 3.00 07/25/16 20:00 83 07/25/16 20:00 98.3 83 16 149/87 94 07/25/16 19:00 2.00 96 07/25/16 18:00 80 07/25/16 17:00 22 07/25/16 16:00 98.5 82 26 151/73 95 07/25/16 16:00 82 07/25/16 14:00 88 07/25/16 12:45 26 07/25/16 12:45 26 07/25/16 12:00 100.1 96 28 129/63 91 07/25/16 12:00 96 (Chiquita Sher) -: 07/26/167 07/26/16416 Imaging Last 72 hours Impressions Chest X-Ray 07/24/16 0000 Signed Impressions: Service Date/Time: Sunday, July 24, 2016 07:46 - CONCLUSION: 1. Scattered patchiness within the left lung consistent with atelectasis and/or pneumonia. Clinical correlation is recommended. 2. Right perihilar atelectasis. 3. Multiple tubes and lines are in good positions. Elbert Hector MD Tubes & Lines: Clemens Tubes & Lines Comment rectal tube (Chiquita Sher. DIRECTOR OF [employer]) Physical Exam General Appearance: Well Developed, Well Nourished, No Acute Distress (Chiquita Sher B. [employer]) Eyes Eye Exam: Pupils Equal (Chiquita Sher B. DIRECT[employer]) Throat Throat Exam: Gag Reflex Present (Chiquita Sher B. [employer]) Neck Neck Exam: Neck Supple, Trachea Midline (Chiquita Sher B. [employer]) Pulmonary Resp Exam: Crackles, Rhonchi, Decreased Bases Resp Remarks scattered rales, more pronounced on left (Chiquita Sher B. [employer]) Cardiology CV Exam: Regular, Normal Sinus Rhythm, Good Perfusion (Chiquita Sher B. [employer]) Gastrointestinal/Abdomen GI Exam: Soft, Non-Tender, Bowel Sounds Present, Positive Bowel Movement ( Chiquita Sher B. [employer]) Musculoskeletal MS Exam: Joints Intact, Normal Tone (Chiquita Sher B. [employer]) Integumentary Skin Exam: Clear, Warm, Dry, Intact (Chiquita Sher B. [employer]) Extremeties Extremities Exam: Pedal Pulses Palpable, Moderate Edema Extremeties Remarks edema improving (Chiquita Sher B. [employer]) Neurologic Neuro Exam: Awake, Moving All Extremities (Chiquita Sher B. [employer]) Psychiatric Psych Exam: Appropriate Responses (Chiquita Sher B. DIRECT[employer]) VTE Prophylaxis Device: SCDs (Chiquita Sher B. DIRECT[employer]) Assessment/Plan Discussed Condition With: Daughter Assessment Summary: JASON/Acute Renal Failure, Hypertension Problem List: (1) Acute renal failure Plan: His creatinine was 1.13 on 07/08 he became septic around that time with BP 70/30s, started on pressors JASON was due to decreased renal perfusion (sepsis), ATN. AIN was also a possibility creatinine remains stable electrolytes unremarkable will have clemens removed , good urine output avoid nephrotoxins monitor fluid volume status, diuretics still on hold (2) Sepsis Plan: due to legionella, ARDS leukocytosis improving , he is afebrile, recent blood cultures are negative antibiotics : on Zithromax and Levaquin monitor clinically, serial chest xrays, he had bronch, pathology showing macrophages without malignant cells ID following. (3) Left flank pain Plan: with non obstructing stone s/p previous bilateral ureteral stent placement, may need lithotripsy and stent removal in future urology has evaluated, to follow up outpatient for stent removal (4) Hypernatremia Plan: corrected (5) Hyperkalemia Plan: corrected, monitor for recurrence (Chiquita Sher) Plan patient was seen and examined. His renal function is stable. Non oliguric, excellent urine output. Clemens can be removed. Discussed with patient's daughter. (Harvey Handley MD) Problem Qualifiers (1) Acute renal failure: Qualified Code: N17.9 - Acute renal failure, unspecified acute renal failure type (2) Sepsis: Qualified Code: A41.9 - Sepsis, due to unspecified organism Chiquita Sher Jul 26, 2016 11:12 Harvey Handley MD Jul 27, 2016 09:09
[2016-07-26] MEDS ORDERED: TEMAZEPAM 15 MG CAP PO PRN (16:45)
[2016-07-26] MEDS: DOCUSATE SODIUM 50 MG/SENNA 8.6 MG TAB PO SCH (20:30)
[2016-07-26] MEDS: ATORVASTATIN 80 MG TAB PO SCH (20:30)
[2016-07-26] MEDS: REMOVE OLD NICODERM (NICOTINE) PATCH TD SCH (21:00)
[2016-07-27] VITALS (14 sets, daily range): BP systolic 113–160; BP diastolic 72–86; PULSE 79–92; RESP 23–28; TEMP 98–99.9; O2SAT 91–97
[2016-07-27] MEDS: hydrALAZINE HCL 50 MG TAB PO SCH ×3 (01:40→17:51)
[2016-07-27] MEDS: MORPHINE SULFATE 4 MG/ML INJ IV PRN ×4 (03:07→22:11)
[2016-07-27] MEDS: METOCLOPRAMIDE HCL 10 MG/2 ML VIAL IV SCH ×4 (03:17→20:49)
[2016-07-27] MEDS: RESP: ALBUTEROL 2.5 MG/IPRATROPIUM 0.5 MG NEB (SCH) NEB ×6 (03:54→22:48)
[2016-07-27] MEDS: METOPROLOL TARTRATE 25 MG TAB PO SCH ×3 (05:41→20:50)
[2016-07-27] MEDS: methylPREDNISolone SOD SUCC 40 MG/1 ML VIAL IV PUSH SCH ×2 (05:41→17:50)
[2016-07-27] MEDS: INSULIN NovoLIN REGULAR SUPPLEMENTAL SCALE SQ SCH ×4 (05:41→23:52)
[2016-07-27 05:44] LABS: HEMATOCRIT 29.1 % (39.0-51.0); MEAN CELL VOLUME 94.7 FL (80.0-100.0); MEAN CORPUSCULAR HEMOGLOBIN 31.8 PG (27.0-34.0); MEAN CORPUSCULAR HGB CONC 33.6 % (32.0-36.0); PLATELET COUNT 267 TH/MM3 (150-450); RED BLOOD COUNT 3.07 MIL/MM3 (4.50-5.90); RED CELL DISTRIBUTION WIDTH 14.1 % (11.6-17.2); REVIEW FLAG FINAL; WHITE BLOOD COUNT 10.6 TH/MM3 (4.0-11.0)
[2016-07-27 06:01] LABS: POTASSIUM 4.1 MEQ/L (3.5-5.1)
[2016-07-27] MEDS: LEVOFLOXACIN 750 MG PREMIX INJ 150 ML IV SCH (08:43)
[2016-07-27] MEDS: PANTOPRAZOLE SODIUM 40 MG VIAL IV PUSH SCH (08:44)
[2016-07-27] MEDS: DOCUSATE SODIUM 50 MG/SENNA 8.6 MG TAB PO SCH ×3 (08:44→21:00)
[2016-07-27] MEDS: NICOTINE 21 MG/24 HR PATCH TD SCH (08:44)
[2016-07-27] MEDS: ENOXAPARIN SODIUM 40 MG/0.4 ML SYRINGE SQ SCH (08:44)
[2016-07-27] MEDS: THIAMINE HCL 100 MG TAB PO SCH (08:44)
[2016-07-27] MEDS: ARTIFICIAL TEARS OPTH OINT 3.5 APPLIC/3.5 GM TUBO EACH EYE SCH ×2 (08:45→20:49)
[2016-07-27] MEDS: SODIUM CHLORIDE 0.9% FLUSH 5 ML FLUSH FLUSH SCH ×2 (08:45→20:49)
[2016-07-27] MEDS: SODIUM CHLORIDE 0.9% FLUSH 5 ML FLUSH IVF SCH ×2 (08:45→09:00)
--- NOTE | 2016-07-27 08:45 | HHI.FPPN ---
Subjective Remarks Pt seen and examined this morning. Pt with history of chronic back pain, overnight he had increased back pain which is normally controlled by Lortab which she takes at home. He reports that his breathing is significantly improved, denies chest pain, abdominal pain. He endorses pain of his lower extremities which she attributes to lack of regular movement. He has been walking with PT and is interested in getting out of bed and moving around his room. (Nadine Aly MD R2) Objective Vitals Vital Signs Date Time Temp Pulse Resp B/P Pulse Ox O2 Delivery O2 Flow Rate FiO2 07/27/16 07:54 91 Nasal Cannula 2.00 07/27/16 07:41 98.0 81 23 160/84 97 07/27/16 06:00 85 07/27/16 04:00 81 07/27/16 04:00 98.8 81 23 143/86 97 07/27/16 03:17 20 07/27/16 02:00 85 07/27/16 00:00 98.9 86 28 121/73 94 07/27/16 00:00 86 07/26/16 22:00 78 07/26/16 20:38 20 07/26/16 20:00 86 07/26/16 20:00 99.9 86 28 141/73 94 07/26/16 19:37 97 Nasal Cannula 3.00 07/26/16 19:00 2.00 94 07/26/16 18:00 81 07/26/16 16:00 98.0 78 23 140/74 98 07/26/16 16:00 78 07/26/16 14:00 86 07/26/16 12:00 98.2 78 19 131/67 91 07/26/16 12:00 78 07/26/16 10:00 73 I/O 07/26/16 07/26/16 07/26/16 07/27/16 07/27/16 07/27/16 07:00 15:00 23:00 07:00 15:00 23:00 Intake Total 81 ml 448 ml 69 ml 74 ml Output Total 1050 ml 1250 ml 650 ml Balance -969 ml -802 ml 69 ml -576 ml IV Total 81 ml 448 ml 69 ml 74 ml Output Urine Total 1050 ml 1250 ml 650 ml # Voids 1 # Bowel Movements 0 1 1 (Nadine Aly MD R2) Result Diagram: 2/9/17 0345 07/27/16 0345 Objective Remarks GEN: Well-developed, well-nourished patient. Awake and alert. Pt able to answer questions. No restraints. Wearing nasal canula on 2L. NECK: Supple, left internal jugular central line clean, dry, intact CV: Regular rate and rhythm with a grade 3/6 systolic murmur LUNGS: Anterior and lateral lung alba auscultated. Clear breath sounds bilaterally with good air movement, decreased breath sounds at lung bases. No wheezes or crackles. ABD: Soft nontender, nondistended NEURO/PSYCH: Alert and oriented. Patient able to respond to questions. Slow speech. Ext: Extremities warm and well-perfused. No lower extremity edema (Nadine Aly MD R2) Date of Insertion: Jul 18, 2016 Line: Central Venous Catheter Side: Left Location: Internal, Jugular (Nadine Aly MD R2) A/P Assessment and Plan 55 year old male with h/o HTN, renal calculi, s/p bilateral ureteral stent placements presented due to bilateral flank pain more significant on the left x 3 days, admitted for left-sided pneumonia, sepsis, possible UTI, he was intubated, currently extubated. Critical care has signed off. Discharge Planning Timetable unknown. Will likely transfer from the [facility] later today. wdw Dr. Antonio (Nadine Aly MD R2) Attending Attestation Patient examined and case discussed with resident physicians I have read the above note and agree with the assessment/plan is discussed with me I was involved in all medical decision making for this patient Elgin Antonio M.D. (Elgin Antonio MD) Problem List: (1) Legionella pneumonia Status: Acute Plan: Currently extubated (07/25/16) after critical care management of ARDS due to legionella pneumonia Current Antibiotics based on ID Recs:: * Azithromycin 07/08- * Levaquin 07/10- Pulmonary toilet including: * Albuterol and Duonebs * Solu-Medrol, 40mg Q12 * Incentive Spirometer * Supplemental oxygen Discontinued ABX: * Flagyl (07/11-07/24) * Cefepime (07/11-07/23) * Zyvox 07/09-07/11 * Zosyn 07/07-1/24 * Vancomycin 07/07-07/09, discontinued due to concern for drug fever and allergic interstitial nephritis Pulmonary consulted: appreciate recommendations * Bronchoscopy preformed on 07/17 * Bronchial washings significant for heavy growth of normal respiratory lashanda. No acid fast bacilli or fungal elements appreciated. Imaging: * CXR 07/24: Scattered patches in the left lung consistent with atelectasis/ pneumonia, clinical correlation recommended. Right perihilar atelectasis. Multiple lines and tubes in good position. * CXR 07/20: Left subclavian central venous catheter out. Other lines and tubes unchanged. No significant change, left greater than right bilateral airspace opacities and small left pleural effusion. * CXR 07/18: No significant change * CXR 07/17: Worsening consolidation and volume loss on the left * CXR 07/16: No significant change * CXR 07/15: Improved aeration of the left upper lobe compared to prior examination. Mild infiltrate right upper lobe. * CXR 07/09: Persistent severe diffuse left lung air space consolidation with likely left pleural effusion. Stable subtle airspace consolidation/opacity the in the right midlung * Chest CT: Consolidative changes in the left upper lobe. There is suspicious adenopathy in the mediastinum. This may be more than an inflammatory process -Afebrile since 07/09 -Legionella antigen positive in urine -1 of 2 blood culture on 07/07 positive for staph S/P coagulase-negative, likely due to contamination -Repeat blood cultures, sputum cultures, urine cx NGTD -Urine eosinophils: Negative -Follow repeat Urine and sputum culture 07/16 (2) Sepsis Status: Resolved Plan: Secondary to legionella pneumonia leading to severe ARDS See treatment for pneumonia (3) Acute respiratory failure with hypoxia Status: Resolved Plan: Currently extubated Continue breathing treatments and supplemental oxygen See treatment for Legionella pneumonia (4) Acute renal failure Status: Acute Plan: S/P bilateral ureteral stents, JASON -Creatinine 1.16, improving. + UOP Urology consulted: Appreciate recommendations * Once clinical picture improves, may remove stents versus attempted ureteroscopy and laser lithotripsy * Will continue to follow Nephrology consulted: appreciate recommendations * JASON likely due to decreased renal perfusion * Minimize IVF. Double concentrate all fluids. Monitor fluid status, I&O's, electrolytes * Bump in Cr may have been due to aggressive diuresis * Free water 300 mL every 4h Electrolytes: Potassium within normal limits. Will continue to monitor and replete as necessary. (5) ARDS (adult respiratory distress syndrome) Status: Resolved Plan: s/p Prone Therapy due to severe ARDS secondary to legionella pneumonia See treatment for legionella pneumonia (6) Encephalopathy Status: Resolved Plan: -Sedation discontinued as pt is now extubated -Pt awake and alert with normal speech. -EEG from 07/20 shows mild diffuse disturbances of cerebral function. No epileptiform features. Appears essentially normal at times. (7) Hypertension Status: Acute Plan: ACS evaluation negative Echo 07/10: Mild to moderate LVH, normal systolic function, ejection fraction estimated to be 60%. No regional wall motion abnormalities. Mild mitral valve regurgitation. Medications: * Amlodipine 10 mg * Hydralazine 50mg PO q8 and PRN * Metoprolol 50 mg q8 * Labetalol 20 mg PRN (8) Hyperlipidemia Status: Acute Plan: Continue Atorvastatin 80 mg (9) Nutrition, metabolism, and development symptoms Status: Acute Plan: Diet: ADA Diet -Metoclopramide schedule q8h -Protonix 40mg IV daily for GI prophylaxis -Colace and senna Endo: SSI with Accu-Chek every 6h Will check hemoglobin A1c Electrolytes: Potassium within normal limits. Will continue to monitor and replete as necessary. DVT Prophylaxis - Lovenox (Nadine Aly MD R2) Problem Qualifiers (1) Sepsis: Qualified Code: A41.9 - Sepsis, due to unspecified organism (2) Acute renal failure: Qualified Code: N17.9 - Acute renal failure, unspecified acute renal failure type (3) Hypertension: Qualified Code: I10 - Essential hypertension Nadine Aly MD R2 Jul 27, 2016 08:45 Elgin Antonio MD Jul 27, 2016 11:33 -Legionella antigen positive in urine -1 of 2 blood culture on 07/07 positive for staph S/P coagulase-negative, likely due to contamination -Repeat blood cultures, sputum cultures, urine cx NGTD -Urine eosinophils: Negative -Follow repeat Urine and sputum culture 07/16 (2) Sepsis Status: Resolved Plan: Secondary to legionella pneumonia leading to severe ARDS See treatment for pneumonia (3) Acute respiratory failure with hypoxia Status: Resolved Plan: Currently extubated Continue breathing treatments and supplemental oxygen See treatment for Legionella pneumonia (4) Acute renal failure Status: Acute Plan: S/P bilateral ureteral stents, JASON -Creatinine 1.16, improving. + UOP Urology consulted: Appreciate recommendations * Once clinical picture improves, may remove stents versus attempted ureteroscopy and laser lithotripsy * Will continue to follow Nephrology consulted: appreciate recommendations * JASON likely due to decreased renal perfusion * Minimize IVF. Double concentrate all fluids. Monitor fluid status, I&O's, electrolytes * Bump in Cr may have been due to aggressive diuresis * Free water 300 mL every 4h Electrolytes: Potassium within normal limits. Will continue to monitor and replete as necessary. (5) ARDS (adult respiratory distress syndrome) Status: Resolved Plan: s/p Prone Therapy due to severe ARDS secondary to legionella pneumonia See treatment for legionella pneumonia (6) Encephalopathy Status: Resolved Plan: -Sedation discontinued as pt is now extubated -Pt awake and alert with normal speech. -EEG from 07/20 shows mild diffuse disturbances of cerebral function. No epileptiform features. Appears essentially normal at times. (7) Hypertension Status: Acute Plan: ACS evaluation negative Echo 07/10: Mild to moderate LVH, normal systolic function, ejection fraction estimated to be 60%. No regional wall motion abnormalities. Mild mitral valve regurgitation. Medications: * Amlodipine 10 mg * Hydralazine 50mg PO q8 and PRN * Metoprolol 50 mg q8 * Labetalol 20 mg PRN (8) Hyperlipidemia Status: Acute Plan: Continue Atorvastatin 80 mg (9) Nutrition, metabolism, and development symptoms Status: Acute Plan: Diet: ADA Diet -Metoclopramide schedule q8h -Protonix 40mg IV daily for GI prophylaxis -Colace and senna Endo: SSI with Accu-Chek every 6h Will check hemoglobin A1c Electrolytes: Potassium within normal limits. Will continue to monitor and replete as necessary. DVT Prophylaxis - Lovenox (Nadine Aly MD R2) Problem Qualifiers (1) Sepsis: Qualified Code: A41.9 - Sepsis, due to unspecified organism (2) Acute renal failure: Qualified Code: N17.9 - Acute renal failure, unspecified acute renal failure type (3) Hypertension: Qualified Code: I10 - Essential hypertension Nadine Aly MD R2 Jul 27, 2016 08:45 Elgin Antonio MD Jul 27, 2016 11:33
[2016-07-27] MEDS: ACETAMINOPHEN/HYDROcodone 325 MG/10 MG TAB PO PRN ×3 (09:28→20:50)
--- NOTE | 2016-07-27 10:39 | HHI.NPPN ---
Subjective General Problems: Anemia, Edema Renal Failure: Acute Interval History Khan was removed. Renal function is better. PT is getting him into a chair. ( Chiquita Sher) Review of Systems General Constitutional: Fatigue (Chiquita Sher) Musculoskeletal MS: Pain/Stiffness (Chiquita Sher) Objective Data Data 07/26/16 07/27/16 19:00 07:00 Intake Total 448 ml 143 ml Output Total 1250 ml 650 ml Balance -802 ml -507 ml IV Total 448 ml 143 ml Output Urine Total 1250 ml 650 ml # Voids 1 # Bowel Movements 1 1 Vital Signs Date Time Temp Pulse Resp B/P Pulse Ox O2 Delivery O2 Flow Rate FiO2 07/27/16 08:00 86 07/27/16 08:00 99.9 86 28 141/73 94 07/27/16 07:54 91 Nasal Cannula 2.00 07/27/16 07:41 98.0 81 23 160/84 97 07/27/16 07:00 2.00 93 07/27/16 06:00 85 07/27/16 04:00 81 07/27/16 04:00 98.8 81 23 143/86 97 07/27/16 03:17 20 07/27/16 02:00 85 07/27/16 00:00 98.9 86 28 121/73 94 07/27/16 00:00 86 07/26/16 22:00 78 07/26/16 20:38 20 07/26/16 20:00 86 07/26/16 20:00 99.9 86 28 141/73 94 07/26/16 19:37 97 Nasal Cannula 3.00 07/26/16 19:00 2.00 94 07/26/16 18:00 81 07/26/16 16:00 98.0 78 23 140/74 98 07/26/16 16:00 78 07/26/16 14:00 86 07/26/16 12:00 98.2 78 19 131/67 91 07/26/16 12:00 78 (Chiquita Sher) -: 07/27/16 0345 07/27/16 0345 Tubes & Lines: Khan Tubes & Lines Comment rectal tube (Chiquita Sher) Physical Exam General Appearance: Well Developed, Well Nourished, No Acute Distress (Chiquita Sher) Eyes Eye Exam: Pupils Equal (Chiquita Sher) Throat Throat Exam: Gag Reflex Present (Chiquita Sher) Neck Neck Exam: Neck Supple, Trachea Midline (Chiquita SherP) Pulmonary Resp Exam: Crackles, Rhonchi, Decreased Bases Resp Remarks scattered rales, more pronounced on left (Chiquita Sher METROLOGY TECHNICIAN) Cardiology CV Exam: Regular, Normal Sinus Rhythm, Good Perfusion (Chiquita SherP) Gastrointestinal/Abdomen GI Exam: Soft, Non-Tender, Bowel Sounds Present, Positive Bowel Movement ( Chiquita Sher) Musculoskeletal MS Exam: Joints Intact, Normal Tone (Chiquita Sher) Integumentary Skin Exam: Clear, Warm, Dry, Intact (Chiquita Sher) Extremeties Extremities Exam: Pedal Pulses Palpable, Moderate Edema Extremeties Remarks edema improving (Chiquita Sher) Neurologic Neuro Exam: Awake, Moving All Extremities (Chiquita Sehr) Psychiatric Psych Exam: Appropriate Responses (Chiquita Sher) VTE Prophylaxis Device: SCDs (Chiquita Sher) Assessment/Plan Discussed Condition With: Daughter Assessment Summary: JASON/Acute Renal Failure, Hypertension Problem List: (1) Acute renal failure Plan: His creatinine was 1.13 on 07/08 he became septic around that time with BP 70/30s, started on pressors JASON was due to decreased renal perfusion (sepsis), ATN. AIN was also a possibility renal function has improved good urine output electrolytes unremarkable tolerating oral fluids, no IVF required avoid nephrotoxins at this time we will sign off (2) Sepsis Plan: due to legionella, ARDS leukocytosis improving , he is afebrile, recent blood cultures are negative antibiotics : on Zithromax and Levaquin monitor clinically, serial chest xrays, he had bronch, pathology showing macrophages without malignant cells ID following. (3) Left flank pain Plan: with non obstructing stone s/p previous bilateral ureteral stent placement, may need lithotripsy and stent removal in future urology has evaluated, to follow up outpatient for stent removal (4) Hypernatremia Plan: corrected (5) Hyperkalemia Plan: corrected, monitor for recurrence Plan The plan of care was formulated with the assistance of Dr. Handley (Chiquita Sher) Plan patient was seen and examined. Renal function has improved. We will sign off at this time. (Harvey Handley MD) Problem Qualifiers (1) Acute renal failure: Qualified Code: N17.9 - Acute renal failure, unspecified acute renal failure type (2) Sepsis: Qualified Code: A41.9 - Sepsis, due to unspecified organism Chiquita Sher Jul 27, 2016 10:39 Harvey Handley MD Jul 27, 2016 20:01
[2016-07-27] MEDS: AZITHROMYCIN INJ 500 MG in SODIUM CHLOR 0.9% 250 ML INJ 250 ML IV SCH (12:16)
[2016-07-27 13:26] LABS: HEMOGLOBIN A1a 1.2 %; HEMOGLOBIN Ao 81.6 %; HEMOGLOBIN LA1C 2.8 %; HEMOGLOBIN P3 6.7 %
--- NOTE | 2016-07-27 14:15 | HHI.IDPN ---
Subjective Subjective Remarks Mr. Ambrocio is a 55-year-old male with past medical history significant for renal calculi status post bilateral ureteral stent placements as well as hypertension who presented to the emergency department to bilateral flank pain for the past 3 days. He also had shortness of breath and chest discomfort on admission. UA with some pyuria. UC negative. CT A/P stent ok, no hydro. ID following for sepsis, pneumonia, legionella antigen positive, possible legionellosis with secondary bacterial infection. Overnight events reviewed with RN. On 2L NC. Afebrile BP OK UO ok No rash Antibiotics Azithro IV Levaquin IV Lines Line sites with no e/o infection Past Medical History reviewed. 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 Vital Signs Date Time Temp Pulse Resp B/P Pulse Ox O2 Delivery O2 Flow Rate FiO2 07/27/16 12:00 86 07/27/16 12:00 98.3 81 24 134/79 94 07/27/16 10:00 86 07/27/16 08:00 86 07/27/16 08:00 99.9 86 28 141/73 94 07/27/16 07:54 91 Nasal Cannula 2.00 07/27/16 07:41 98.0 81 23 160/84 97 07/27/16 07:00 2.00 93 07/27/16 06:00 85 07/27/16 04:00 81 07/27/16 04:00 98.8 81 23 143/86 97 07/27/16 03:17 20 07/27/16 02:00 85 07/27/16 00:00 98.9 86 28 121/73 94 07/27/16 00:00 86 07/26/16 22:00 78 07/26/16 20:38 20 07/26/16 20:00 86 07/26/16 20:00 99.9 86 28 141/73 94 07/26/16 19:37 97 Nasal Cannula 3.00 07/26/16 19:00 2.00 94 2/8/17 18:00 81 07/26/16 16:00 98.0 78 23 140/74 98 07/26/16 16:00 78 07/26/16 07/26/16 07/27/16 15:00 23:00 07:00 Intake Total 448 ml 69 ml 74 ml Output Total 1250 ml 650 ml Balance -802 ml 69 ml -576 ml IV Total 448 ml 69 ml 74 ml Output Urine Total 1250 ml 650 ml # Voids 1 # Bowel Movements 1 1 . Laboratory Tests Test 07/26/16 07/27/16 04:17 03:45 White Blood Count 12.0 TH/MM3 10.6 TH/MM3 Red Blood Count 3.14 MIL/MM3 3.07 MIL/MM3 Hemoglobin 9.9 GM/DL 9.8 GM/DL Hematocrit 30.0 % 29.1 % Mean Corpuscular Volume 95.3 FL 94.7 FL Mean Corpuscular Hemoglobin 31.4 PG 31.8 PG Mean Corpuscular Hemoglobin 32.9 % 33.6 % Concent Red Cell Distribution Width 13.9 % 14.1 % Platelet Count 304 TH/MM3 267 TH/MM3 Mean Platelet Volume 9.6 FL 9.6 FL Neutrophils (%) (Auto) 78.0 % Lymphocytes (%) (Auto) 14.3 % Monocytes (%) (Auto) 6.9 % Eosinophils (%) (Auto) 0.3 % Basophils (%) (Auto) 0.5 % Neutrophils # (Auto) 9.4 TH/MM3 Lymphocytes # (Auto) 1.7 TH/MM3 Monocytes # (Auto) 0.8 TH/MM3 Eosinophils # (Auto) 0.0 TH/MM3 Basophils # (Auto) 0.1 TH/MM3 CBC Comment DIFF FINAL Differential Comment Laboratory Tests Test 07/26/16 07/27/16 07/27/16 04:17 03:45 12:10 Sodium Level 142 MEQ/L 142 MEQ/L Potassium Level 4.3 MEQ/L 4.1 MEQ/L Chloride Level 106 MEQ/L 107 MEQ/L Carbon Dioxide Level 27.9 MEQ/L 23.0 MEQ/L Anion Gap 8 MEQ/L 12 MEQ/L Blood Urea Nitrogen 40 MG/DL 35 MG/DL Creatinine 1.32 MG/DL 1.16 MG/DL Estimat Glomerular Filtration 56 ML/MIN 65 ML/MIN Rate Random Glucose 79 MG/DL 95 MG/DL Calcium Level 9.0 MG/DL 8.4 MG/DL Phosphorus Level 3.8 MG/DL Albumin 2.4 GM/DL Hemoglobin A1c 6.7 % Imaging Chest X-Ray 07/16/16 0000 Signed Impressions: Service Date/Time: Saturday, July 16, 2016 02:47 - CONCLUSION: No significant change has occurred. Andi Parra MD Chest X-Ray 07/15/16 0000 Signed Impressions: Service Date/Time: Friday, July 15, 2016 07:05 - CONCLUSION: 1. Improved aeration of the left upper lung compared to the prior examination. 2. Mild infiltrate right upper lung. Elgin Levin MD Chest X-Ray 07/15/16 0000 Signed Impressions: Service Date/Time: Friday, July 15, 2016 07:05 - CONCLUSION: 1. Improved aeration of the left upper lung compared to the prior examination. 2. Mild infiltrate right upper lung. Elgin Levin MD Soft Tissue Ultrasound 07/12/16 0000 Signed Impressions: Service Date/Time: Tuesday, July 12, 2016 19:25 - CONCLUSION: Well- defined heterogeneous mass which is nonspecific but likely represents a sebaceous cyst. Alexandro De La O MD Abdomen X-Ray 07/12/16 0000 Signed Impressions: Service Date/Time: Tuesday, July 12, 2016 16:59 - CONCLUSION: Nonspecific, benign abdomen appearance. Patel Torres MD Abdomen/Pelvis CT 07/07/16 1110 Signed Impressions: Service Date/Time: Thursday, July 07, 2016 11:31 - CONCLUSION: 1. Renal stones and stents in good position as described above. Yosvany Fuentes MD FACR Chest CT 07/07/16 0000 Signed Impressions: Service Date/Time: Thursday, July 07, 2016 16:09 - CONCLUSION: 1. Consolidative changes in the left upper lobe. There is suspicious adenopathy in the mediastinum. This may be more than an inflammatory process. 2. Bronchoscopy may be the easiest way to make a diagnosis of a neoplastic process. Yosvany Fuentes MD FACR Last Impressions Chest X-Ray 07/09/16 0000 Signed Impressions: Service Date/Time: Saturday, July 09, 2016 10:44 - CONCLUSION: Left subclavian central line tip is in the superior aspect of the SVC. No pneumothorax is visualized. Otherwise, stable exam. Patel Palmer MD Abdomen/Pelvis CT 07/07/16 1110 Signed Impressions: Service Date/Time: Thursday, July 07, 2016 11:31 - CONCLUSION: 1. Renal stones and stents in good position as described above. Yosvany Fuentes MD FACR Chest CT 07/07/16 0000 Signed Impressions: Service Date/Time: Thursday, July 07, 2016 16:09 - CONCLUSION: 1. Consolidative changes in the left upper lobe. There is suspicious adenopathy in the mediastinum. This may be more than an inflammatory process. 2. Bronchoscopy may be the easiest way to make a diagnosis of a neoplastic process. Yosvany Fuentes MD FACR Physical Exam GENERAL: Obese. Well nourished. SKIN: No rashes. Cool and dry. HEENT: [employer] conjunctiva, no icterus. CARDIOVASCULAR: HS audible. No murmur appreciated. RESPIRATORY: Breath sounds diminished bilaterally posteriorly. GASTROINTESTINAL: soft, NT MUSCULOSKELETAL: Edema hands and feet NEUROLOGICAL: AAOx3,NF Psych pleasant, smiling. IV line sites with no evidence of infection. Assessment & Plan Remarks Severe sepsis present on admission(criteria explained in history of present illness) resolving. Pneumonia present on admission (community acquired, atypical) Likely Legionella Pneumonia. Bilateral ureteral stents. Recommendations: Continue Azithromycin change to oral Continue Levaquin IV change to oral. Will likely to transition to oral. Follow cultures Follow clinically. d/w RN d/w pts daughter Patient informs me he was using a motor that was aerosolizing some oil. d.w patient to address environmental factors. Brenda Walsh MD Jul 27, 2016 14:15
[2016-07-27] MEDS: ATORVASTATIN 80 MG TAB PO SCH (20:49)
[2016-07-27] MEDS: REMOVE OLD NICODERM (NICOTINE) PATCH TD SCH (20:50)
[2016-07-27] MEDS: ONDANSETRON HCL 4 MG/2 ML VIAL IV PUSH SCH (22:19)
[2016-07-27] MEDS: TEMAZEPAM 15 MG CAP PO PRN (23:53)
[2016-07-28] VITALS (13 sets, daily range): BP systolic 113–140; BP diastolic 69–82; PULSE 63–93; RESP 16–27; TEMP 98–99.1; O2SAT 91–96
[2016-07-28] MEDS: hydrALAZINE HCL 50 MG TAB PO SCH ×3 (02:27→17:17)
[2016-07-28] MEDS: MORPHINE SULFATE 4 MG/ML INJ IV PRN ×2 (02:27→20:26)
[2016-07-28] MEDS: RESP: ALBUTEROL 2.5 MG/IPRATROPIUM 0.5 MG NEB (SCH) NEB ×2 (04:00→07:50)
[2016-07-28] MEDS: METOCLOPRAMIDE HCL 10 MG/2 ML VIAL IV SCH ×3 (04:15→20:24)
[2016-07-28] MEDS: methylPREDNISolone SOD SUCC 40 MG/1 ML VIAL IV PUSH SCH (05:14)
[2016-07-28] MEDS: METOPROLOL TARTRATE 25 MG TAB PO SCH ×3 (05:15→20:25)
[2016-07-28] MEDS: ACETAMINOPHEN/HYDROcodone 325 MG/10 MG TAB PO PRN ×4 (05:15→22:23)
[2016-07-28 05:54] LABS: HEMATOCRIT 29.6 % (39.0-51.0); MEAN CELL VOLUME 95.4 FL (80.0-100.0); MEAN CORPUSCULAR HEMOGLOBIN 31.6 PG (27.0-34.0); MEAN CORPUSCULAR HGB CONC 33.1 % (32.0-36.0); PLATELET COUNT 252 TH/MM3 (150-450); RED BLOOD COUNT 3.11 MIL/MM3 (4.50-5.90); RED CELL DISTRIBUTION WIDTH 14.2 % (11.6-17.2); REVIEW FLAG FINAL; WHITE BLOOD COUNT 9.7 TH/MM3 (4.0-11.0)
[2016-07-28] MEDS: INSULIN NovoLIN REGULAR SUPPLEMENTAL SCALE SQ SCH ×4 (06:00→23:44)
[2016-07-28 06:19] LABS: BICARBONATE 28.6 MEQ/L (21.0-32.0); POTASSIUM 4.2 MEQ/L (3.5-5.1)
[2016-07-28] MEDS: NICOTINE 21 MG/24 HR PATCH TD SCH (09:00)
[2016-07-28] MEDS: ARTIFICIAL TEARS OPTH OINT 3.5 APPLIC/3.5 GM TUBO EACH EYE SCH ×2 (09:00→20:32)
[2016-07-28] MEDS: SODIUM CHLORIDE 0.9% FLUSH 5 ML FLUSH IVF SCH ×2 (09:00)
[2016-07-28] MEDS: DOCUSATE SODIUM 50 MG/SENNA 8.6 MG TAB PO SCH ×2 (09:00→20:24)
[2016-07-28] MEDS: SODIUM CHLORIDE 0.9% FLUSH 5 ML FLUSH FLUSH SCH ×2 (09:23→20:24)
[2016-07-28] MEDS: LEVOFLOXACIN 500 MG TAB PO SCH (09:25)
[2016-07-28] MEDS: ENOXAPARIN SODIUM 40 MG/0.4 ML SYRINGE SQ SCH (09:25)
[2016-07-28] MEDS: AZITHROMYCIN 250 MG TAB PO SCH (09:25)
[2016-07-28] MEDS: THIAMINE HCL 100 MG TAB PO SCH (09:26)
[2016-07-28] MEDS: PANTOPRAZOLE SODIUM 40 MG VIAL IV PUSH SCH (09:26)
[2016-07-28] MEDS ORDERED: diphenhydrAMINE HCL 50 MG CAP PO PRN (11:30)
[2016-07-28] MEDS ORDERED: ONDANSETRON HCL 4 MG/2 ML VIAL IV PRN (12:00)
[2016-07-28] MEDS: SODIUM CHLORIDE 0.9% FLUSH 5 ML FLUSH IVF PRN (12:37)
[2016-07-28] MEDS: MECLIZINE HCL 25 MG TAB PO PRN (12:52)
--- NOTE | 2016-07-28 13:54 | HHI.FPPN ---
Subjective Remarks No acute events overnight. Overnight, patient afebrile, Pulse range from 60-92, oxygen saturation from 92-96% on 4 L nasal cannula. Talk with patient this morning with daughter by bedside. Patient sitting up in chair, complaining of dizziness and nausea. He reports chronic vertigo. He also reports that he thinks he is having a bowel movement about every 10 minutes. He also reports sleeping only about 3 hours last night, and that he was woken up by a blood draw at 3 AM. Patient requesting antidiarrheal medication, more nausea medication, more Ensure protein shakes. Per nurse report, he has soft stools, not liquid stools, and he is only had 1 bowel movement in the past 24 hours. He is currently denying any fever, chills, chest pain, shortness of breath, abdominal pain. Patient is complaining of back and leg pain. (Alexandro García MD R1) Objective Vitals Vital Signs Date Time Temp Pulse Resp B/P Pulse Ox O2 Delivery O2 Flow Rate FiO2 07/28/16 12:00 81 07/28/16 12:00 98.6 80 21 125/79 96 07/28/16 10:00 92 07/28/16 08:00 99.1 92 24 113/82 92 07/28/16 08:00 92 07/28/16 07:51 92 Nasal Cannula 4.00 07/28/16 07:00 92 Room Air 07/28/16 06:00 63 07/28/16 04:00 70 07/28/16 04:00 98.4 70 18 140/70 95 07/28/16 02:00 76 07/28/16 00:00 98.0 93 27 137/77 92 07/28/16 00:00 79 07/27/16 22:00 79 07/27/16 20:00 92 07/27/16 20:00 99.1 92 24 113/82 92 07/27/16 19:00 92 Room Air 07/27/16 18:00 86 07/27/16 16:00 86 07/27/16 16:00 98.3 86 24 140/72 94 07/27/16 14:00 86 I/O 07/27/16 07/27/16 07/27/16 07/28/16 07/28/16 07/28/16 07:00 15:00 23:00 07:00 15:00 23:00 Intake Total 74 ml 470 ml 120 ml 120 ml Output Total 650 ml 1850 ml 650 ml 275 ml Balance -576 ml -1380 ml -530 ml -155 ml Intake Oral 320 ml 120 ml 120 ml IV Total 74 ml 150 ml 0 ml 0 ml Output Urine Total 650 ml 1850 ml 650 ml 275 ml # Bowel Movements 1 2 0 (Alexandro García MD R1) Result Diagram: 07/28/1645207/28/16452 Imaging Last Impressions Chest X-Ray 07/24/16 0000 Signed Impressions: Service Date/Time: Sunday, July 24, 2016 07:46 - CONCLUSION: 1. Scattered patchiness within the left lung consistent with atelectasis and/or pneumonia. Clinical correlation is recommended. 2. Right perihilar atelectasis. 3. Multiple tubes and lines are in good positions. Elbert Hector MD Soft Tissue Ultrasound 07/12/16 0000 Signed Impressions: Service Date/Time: Tuesday, July 12, 2016 19:25 - CONCLUSION: Well- defined heterogeneous mass which is nonspecific but likely represents a sebaceous cyst. Alexandro De La O MD Abdomen X-Ray 07/12/16 0000 Signed Impressions: Service Date/Time: Tuesday, July 12, 2016 16:59 - CONCLUSION: Nonspecific, benign abdomen appearance. Patel Torres MD Abdomen/Pelvis CT 07/07/16 1110 Signed Impressions: Service Date/Time: Thursday, July 07, 2016 11:31 - CONCLUSION: 1. Renal stones and stents in good position as described above. Yosvany Fuentes MD FACR Chest CT 07/07/16 0000 Signed Impressions: Service Date/Time: Thursday, July 07, 2016 16:09 - CONCLUSION: 1. Consolidative changes in the left upper lobe. There is suspicious adenopathy in the mediastinum. This may be more than an inflammatory process. 2. Bronchoscopy may be the easiest way to make a diagnosis of a neoplastic process. Yosvany Fuentes MD FACR Objective Remarks GEN: Well-developed, well-nourished patient sitting up in chair in no acute distress. Awake and alert. Pt able to answer questions. No restraints. Patient reports recently taking off nasal cannula to wash his face. NECK: Supple, left internal jugular central line clean, dry, intact CV: Regular rate and rhythm with a grade 3/6 systolic murmur LUNGS: Anterior and lateral lung alba auscultated. Clear breath sounds bilaterally with good air movement, decreased breath sounds at lung bases. No wheezes or crackles. ABD: Soft nontender, nondistended Ext: Extremities warm and well-perfused. No lower extremity edema. No calf tenderness. NEURO/PSYCH: Alert and oriented. Patient able to respond to questions appropriately. Normal speech. (Alexandro García MD R1) Date of Insertion: Jul 18, 2016 Line: Central Venous Catheter Side: Left Location: Internal, Jugular (Alexandro García MD R1) A/P Assessment and Plan 55 year old male with h/o HTN, renal calculi, s/p bilateral ureteral stent placements presented due to bilateral flank pain more significant on the left x 3 days, admitted for left-sided pneumonia, sepsis, possible UTI, he was intubated, currently extubated. Critical care has signed off. Khan removed. Nephrology signed off. Discharge Planning Timetable unknown. Will likely transfer from the [facility] later today. wdw Dr. Antonio (Alexandro García MD R1) Attending Attestation Pt. examined and case discussed with resident physicians I have read the above note and agree with the assessment/plan as discussed with me I was involved in all medical decision making for this patient Elgin Antonio MD (Elgin Antonio MD) Problem List: (1) Legionella pneumonia Status: Acute Plan: Severe sepsis present on admission, which is resolving. Currently extubated (07/25/16) after critical care management of ARDS due to legionella pneumonia. Current Antibiotics based on ID Recs:: * Azithromycin 07/08-changed to oral on 07/28/16 * Levaquin 07/10-changed to oral on 07/28/16 Pulmonary toilet including: * Albuterol and Duonebs * Solu-Medrol, 40mg Q12 * Incentive Spirometer * Supplemental oxygen Discontinued ABX: * Flagyl (07/11-07/24) * Cefepime (07/11-07/23) * Zyvox 07/09-07/11 * Zosyn 07/07-07/11 * Vancomycin 07/07-07/09, discontinued due to concern for drug fever and allergic interstitial nephritis Pulmonary consulted: appreciate recommendations * Bronchoscopy preformed on 07/17 * Bronchial washings significant for heavy growth of normal respiratory lashanda. No acid fast bacilli or fungal elements appreciated. Imaging: * CXR 07/24: Scattered patches in the left lung consistent with atelectasis/ pneumonia, clinical correlation recommended. Right perihilar atelectasis. Multiple lines and tubes in good position. * CXR 07/20: Left subclavian central venous catheter out. Other lines and tubes unchanged. No significant change, left greater than right bilateral airspace opacities and small left pleural effusion. * CXR 07/18: No significant change * CXR 07/17: Worsening consolidation and volume loss on the left * CXR 07/16: No significant change * CXR 07/15: Improved aeration of the left upper lobe compared to prior examination. Mild infiltrate right upper lobe. * CXR 07/09: Persistent severe diffuse left lung air space consolidation with likely left pleural effusion. Stable subtle airspace consolidation/opacity the in the right midlung * Chest CT: Consolidative changes in the left upper lobe. There is suspicious adenopathy in the mediastinum. This may be more than an inflammatory process Workup: -Afebrile since 07/09 -Legionella antigen positive in urine on 07/08 -1 of 2 blood culture on 07/07 positive for staph S/P coagulase-negative, likely due to contamination -Repeat blood cultures, sputum cultures, urine cx NGTD -Urine eosinophils: Negative -Follow repeat Urine and sputum culture 07/16 -serial chest xrays, he had bronch, pathology showing macrophages without malignant cells (2) Sepsis Status: Resolved Plan: Secondary to legionella pneumonia leading to severe ARDS. Patient also with bilateral ureteral stents. See treatment for pneumonia (3) Acute respiratory failure with hypoxia Status: Resolved Plan: Currently extubated Continue breathing treatments and supplemental oxygen See treatment for Legionella pneumonia (4) Acute renal failure Status: Acute Plan: S/P bilateral ureteral stents, JASON -Creatinine 1.16, improving. + UOP Urology consulted: Appreciate recommendations * Once clinical picture improves, may remove stents versus attempted ureteroscopy and laser lithotripsy * Will continue to follow Nephrology consulted and signed off: appreciate recommendations * JASON likely due to decreased renal perfusion, ATN versus AIN * Hydrating by mouth. No IVF required. Monitor fluid status, I&O's, electrolytes * Creatinine stable * Free water 300 mL every 4h Electrolytes: Potassium within normal limits. Will continue to monitor and replete as necessary. (5) ARDS (adult respiratory distress syndrome) Status: Resolved Plan: s/p Prone Therapy due to severe ARDS secondary to legionella pneumonia See treatment for legionella pneumonia (6) Encephalopathy Status: Resolved Plan: -Sedation discontinued as pt is now extubated -Pt awake and alert with normal speech. -EEG from 07/20 shows mild diffuse disturbances of cerebral function. No epileptiform features. Appears essentially normal at times. (7) Hypertension Status: Acute Plan: ACS evaluation negative Echo 07/10: Mild to moderate LVH, normal systolic function, ejection fraction estimated to be 60%. No regional wall motion abnormalities. Mild mitral valve regurgitation. Medications: * Amlodipine 10 mg * Hydralazine 50mg PO q8 and PRN * Metoprolol 50 mg q8 * Labetalol 20 mg PRN (8) Hyperlipidemia Status: Acute Plan: Continue Atorvastatin 80 mg (9) Nutrition, metabolism, and development symptoms Status: Acute Plan: Diet: ADA Diet -Metoclopramide schedule q8h -Protonix 40mg IV daily for GI prophylaxis -Colace and senna Endo: SSI with Accu-Chek every 6h Will check hemoglobin A1c Electrolytes: Potassium within normal limits. Will continue to monitor and replete as necessary. DVT Prophylaxis - Lovenox (10) Dizziness Status: Acute Plan: Patient reports chronic vertigo with associated nausea. Meclizine 25 mg by mouth every 6 hours when necessary Increased frequency of Zofran 4 mg IV every 4 hours when necessary for nausea or vomiting (11) Insomnia Status: Acute Plan: Patient complaining of insomnia. Restoril 30 mg by mouth daily at bedtime when necessary Benadryl 50 mg by mouth daily at bedtime when necessary (12) Loose stools Status: Acute Plan: Patient requesting antidiarrheal medication. Per nurse report, he has soft stools, not liquid stools, and he is only had 1 bowel movement in the past 24 hours. Imodium when necessary (Alexandro García MD R1) Problem Qualifiers (1) Sepsis: Qualified Code: A41.9 - Sepsis, due to unspecified organism (2) Acute renal failure: Qualified Code: N17.9 - Acute renal failure, unspecified acute renal failure type (3) Hypertension: Qualified Code: I10 - Essential hypertension Alexandro García MD R1 Jul 28, 2016 13:54 Elgin Antonio MD Jul 28, 2016 19:22 (1) Sepsis: Qualified Code: A41.9 - Sepsis, due to unspecified organism (2) Acute renal failure: Qualified Code: N17.9 - Acute renal failure, unspecified acute renal failure type (3) Hypertension: Qualified Code: I10 - Essential hypertension Alexandro García MD R1 Jul 28, 2016 13:54
[2016-07-28] MEDS: LOPERAMIDE HCL 2 MG CAP PO PRN ×2 (14:29→18:38)
[2016-07-28] MEDS: ATORVASTATIN 80 MG TAB PO SCH (20:24)
[2016-07-28] MEDS: REMOVE OLD NICODERM (NICOTINE) PATCH TD SCH (20:31)
[2016-07-28] MEDS: TEMAZEPAM 15 MG CAP PO PRN (23:43)
[2016-07-29] VITALS (9 sets, daily range): BP systolic 114–143; BP diastolic 66–80; PULSE 80–88; RESP 20; TEMP 97.4–98.2; O2SAT 93–98
[2016-07-29] MEDS: hydrALAZINE HCL 50 MG TAB PO SCH ×3 (02:41→17:17)
[2016-07-29] MEDS: METOCLOPRAMIDE HCL 10 MG/2 ML VIAL IV SCH (02:41)
[2016-07-29] MEDS: LOPERAMIDE HCL 2 MG CAP PO PRN ×2 (02:42→08:54)
[2016-07-29] MEDS: ACETAMINOPHEN/HYDROcodone 325 MG/10 MG TAB PO PRN ×5 (02:43→23:36)
[2016-07-29] MEDS: INSULIN NovoLIN REGULAR SUPPLEMENTAL SCALE SQ SCH ×4 (05:58→21:01)
[2016-07-29] MEDS: METOPROLOL TARTRATE 25 MG TAB PO SCH ×3 (06:35→20:55)
[2016-07-29] MEDS: RESP: ALBUTEROL 2.5 MG/IPRATROPIUM 0.5 MG NEB (SCH) INH ×3 (07:34→20:15)
[2016-07-29 08:05] LABS: AUTOMATED NEUTROPHIL # 5.9 TH/MM3 (1.8-7.7); BASOPHIL # 0.1 TH/MM3 (0-0.2); BASOPHIL % 0.6 % (0.0-2.0); EOSINOPHIL # 0.1 TH/MM3 (0-0.4); EOSINOPHIL % 1.1 % (0.0-4.0); HEMATOCRIT 29.3 % (39.0-51.0); HEMO FLAGS DIFF FINAL; LYMPH % 24.6 % (9.0-44.0); LYMPHOCYTE # 2.2 TH/MM3 (1.0-4.8); MEAN CELL VOLUME 95.5 FL (80.0-100.0); MEAN CORPUSCULAR HEMOGLOBIN 31.6 PG (27.0-34.0); MEAN CORPUSCULAR HGB CONC 33.1 % (32.0-36.0); MONO % 7.8 % (0.0-8.0); NEUT % 65.9 % (16.0-70.0); PLATELET COUNT 247 TH/MM3 (150-450); RED BLOOD COUNT 3.07 MIL/MM3 (4.50-5.90); RED CELL DISTRIBUTION WIDTH 14.5 % (11.6-17.2); WHITE BLOOD COUNT 8.9 TH/MM3 (4.0-11.0)
[2016-07-29 08:12] LABS: BICARBONATE 27.4 MEQ/L (21.0-32.0); POTASSIUM 3.8 MEQ/L (3.5-5.1)
[2016-07-29] MEDS: ENOXAPARIN SODIUM 40 MG/0.4 ML SYRINGE SQ SCH (08:36)
[2016-07-29] MEDS: methylPREDNISolone SOD SUCC 40 MG/1 ML VIAL IV PUSH SCH (08:36)
[2016-07-29] MEDS: AZITHROMYCIN 250 MG TAB PO SCH (08:37)
[2016-07-29] MEDS: LEVOFLOXACIN 500 MG TAB PO SCH (08:37)
[2016-07-29] MEDS: PANTOPRAZOLE SODIUM 40 MG VIAL IV PUSH SCH (08:37)
[2016-07-29] MEDS: THIAMINE HCL 100 MG TAB PO SCH (08:37)
[2016-07-29] MEDS: NICOTINE 21 MG/24 HR PATCH TD SCH (08:38)
[2016-07-29] MEDS: ARTIFICIAL TEARS OPTH OINT 3.5 APPLIC/3.5 GM TUBO EACH EYE SCH ×2 (09:00→20:47)
[2016-07-29] MEDS: DOCUSATE SODIUM 50 MG/SENNA 8.6 MG TAB PO SCH (09:00)
[2016-07-29] MEDS: SODIUM CHLORIDE 0.9% FLUSH 5 ML FLUSH IVF SCH ×2 (09:00→20:55)
[2016-07-29] MEDS: ONDANSETRON HCL 4 MG/2 ML VIAL IV PUSH SCH (09:51)
[2016-07-29] MEDS: SODIUM CHLORIDE 0.9% FLUSH 5 ML FLUSH FLUSH SCH ×2 (09:52→20:58)
--- NOTE | 2016-07-29 11:57 | HHI.FPPN ---
Subjective Remarks Patient with multiple episodes of liquid diarrhea overnight. Except for some low pulse ox ranging from 91-98% on 4 L nasal cannula, patient was afebrile with vital signs stable overnight. In addition to his complaints of multiple episodes of liquid diarrhea, at one point as frequent as every 10 minutes, patient expresses his desire to go home soon and also to start walking soon. He also requested his diet be changed from a diabetic diet to a regular diet. ( Alexandro García MD R1) Objective Vitals Vital Signs Date Time Temp Pulse Resp B/P Pulse Ox O2 Delivery O2 Flow Rate FiO2 07/29/16 08:00 97.4 88 20 129/68 96 07/29/16 08:00 Nasal Cannula 4.00 07/29/16 07:34 98 Nasal Cannula 4.00 07/29/16 04:00 97.8 80 20 120/66 97 07/29/16 00:00 98.2 80 20 114/72 93 07/28/16 22:35 70 07/28/16 22:34 93 Nasal Cannula 4.00 07/28/16 20:20 98.1 79 16 129/69 95 07/28/16 19:30 Nasal Cannula 4.00 07/28/16 16:00 98.3 78 20 129/73 91 07/28/16 15:55 Nasal Cannula 4.00 07/28/16 14:00 81 07/28/16 12:00 81 07/28/16 12:00 98.6 80 21 125/79 96 I/O 07/28/16 07/28/16 07/28/16 07/29/16 07/29/16 07/29/16 07:00 15:00 23:00 07:00 15:00 23:00 Intake Total 120 ml 480 ml 120 ml 360 ml Output Total 275 ml 550 ml 350 ml 500 ml Balance -155 ml -70 ml -230 ml -140 ml Intake Oral 120 ml 480 ml 120 ml 360 ml IV Total 0 ml 0 ml Output Urine Total 275 ml 550 ml 350 ml 500 ml # Voids 3 # Bowel Movements 0 1 2 1 (Alexandro García MD R1) Result Diagram: 07/29/1646 07/29/16 0646 Objective Remarks GEN: Well-developed, well-nourished lying in bed in no acute distress with nasal cannula in place. Awake and alert. Pt able to answer questions appropriately. NECK: Supple CV: Regular rate and rhythm with a grade 3/6 systolic murmur LUNGS: Anterior and lateral lung alba auscultated. Clear breath sounds bilaterally with good air movement, decreased breath sounds at lung bases. No wheezes or crackles. ABD: Soft nontender, nondistended Ext: Extremities warm and well-perfused. No lower extremity edema. No calf tenderness. Except for left foot drop and inability to dorsiflex his left foot, Patient with full range of motion of bilateral upper and lower extremities. NEURO/PSYCH: Alert and oriented. Cranial nerves grossly intact. Motor and sensory grossly intact. Patient able to respond to questions appropriately. Normal speech. (Alexandro García MD R1) Date of Insertion: Jul 18, 2016 Line: Central Venous Catheter Side: Left Location: Internal, Jugular (Alexandro García MD R1) A/P Assessment and Plan 55 year old male with h/o HTN, renal calculi, s/p bilateral ureteral stent placements presented due to bilateral flank pain more significant on the left x 3 days, admitted for left-sided pneumonia, sepsis, possible UTI, he was intubated, currently extubated. Critical care has signed off. Khan removed. Nephrology signed off. Discharge Planning Pending resolution of diarrhea and infectious disease recommendations: Anticipate discharge on Sunday pending continued clinical improvement on Azithromycin alone wdw Dr. Antonio (Alexandro García MD R1) Problem List: (1) Legionella pneumonia Status: Acute Plan: Severe sepsis present on admission, which is resolving. Currently extubated (07/25/16) after critical care management of ARDS due to legionella pneumonia. Current Antibiotics based on ID Recs:: * Azithromycin 07/08-changed to oral on 07/28/16 * Levaquin 07/10-changed to oral on 07/28/16. Stopped on 07/29/[address] Walsh, per our communication on 07/29/16 * Anticipate discharge on Sunday pending continued clinical improvement Pulmonary toilet including: * Albuterol and Duonebs * Solu-Medrol, 40mg Q12 * Incentive Spirometer * Supplemental oxygen Discontinued ABX: * Flagyl (07/11-07/24) * Cefepime (07/11-07/23) * Zyvox 07/09-07/11 * Zosyn 07/07-07/11 * Vancomycin 07/07-07/09, discontinued due to concern for drug fever and allergic interstitial nephritis Pulmonary consulted: appreciate recommendations * Bronchoscopy preformed on 07/17 * Bronchial washings significant for heavy growth of normal respiratory lashanda. No acid fast bacilli or fungal elements appreciated. Imaging: * CXR 07/24: Scattered patches in the left lung consistent with atelectasis/ pneumonia, clinical correlation recommended. Right perihilar atelectasis. Multiple lines and tubes in good position. * CXR 07/20: Left subclavian central venous catheter out. Other lines and tubes unchanged. No significant change, left greater than right bilateral airspace opacities and small left pleural effusion. * CXR 07/18: No significant change * CXR 07/17: Worsening consolidation and volume loss on the left * CXR 07/16: No significant change * CXR 07/15: Improved aeration of the left upper lobe compared to prior examination. Mild infiltrate right upper lobe. * CXR 07/09: Persistent severe diffuse left lung air space consolidation with likely left pleural effusion. Stable subtle airspace consolidation/opacity the in the right midlung * Chest CT: Consolidative changes in the left upper lobe. There is suspicious adenopathy in the mediastinum. This may be more than an inflammatory process Workup: -Afebrile since 07/09 -Legionella antigen positive in urine on 07/08 -1 of 2 blood culture on 07/07 positive for staph S/P coagulase-negative, likely due to contamination -Repeat blood cultures, sputum cultures, urine cx NGTD -Urine eosinophils: Negative -Follow repeat Urine and sputum culture 07/16 -serial chest xrays, he had bronch, pathology showing macrophages without malignant cells (2) Sepsis Status: Resolved Plan: Secondary to legionella pneumonia leading to severe ARDS. Patient also with bilateral ureteral stents. See treatment for pneumonia (3) Acute respiratory failure with hypoxia Status: Resolved Plan: Currently extubated Continue breathing treatments and supplemental oxygen See treatment for Legionella pneumonia (4) Acute renal failure Status: Acute Plan: S/P bilateral ureteral stents, JASON -Creatinine 1.11, improving. + UOP Urology consulted: Appreciate recommendations * Once clinical picture improves, may remove stents versus attempted ureteroscopy and laser lithotripsy * Will continue to follow Nephrology consulted and signed off: appreciate recommendations * JASON likely due to decreased renal perfusion, ATN versus AIN * Hydrating by mouth. No IVF required. Monitor fluid status, I&O's, electrolytes * Creatinine stable * Free water 300 mL every 4h Electrolytes: Potassium within normal limits. Will continue to monitor and replete as necessary. (5) ARDS (adult respiratory distress syndrome) Status: Resolved Plan: s/p Prone Therapy due to severe ARDS secondary to legionella pneumonia See treatment for legionella pneumonia (6) Encephalopathy Status: Resolved Plan: -Sedation discontinued as pt is now extubated -Pt awake and alert with normal speech. -EEG from 07/20 shows mild diffuse disturbances of cerebral function. No epileptiform features. Appears essentially normal at times. (7) Diarrhea Status: Acute Plan: Patient with multiple episodes of liquid diarrhea overnight. Stool C. difficile toxin PCR Lactobacillus probiotic for likely antibiotic induced diarrhea Hold Imodium Hold metoclopramide/Reglan Consider Bentyl pending results of C. difficile PCR (8) Hypertension Status: Acute Plan: ACS evaluation negative Echo 07/10: Mild to moderate LVH, normal systolic function, ejection fraction estimated to be 60%. No regional wall motion abnormalities. Mild mitral valve regurgitation. Medications: * Amlodipine 10 mg * Hydralazine 50mg PO q8 and PRN * Metoprolol 50 mg q8 * Labetalol 20 mg PRN (9) Hyperlipidemia Status: Acute Plan: Continue Atorvastatin 80 mg (10) Nutrition, metabolism, and development symptoms Status: Acute Plan: Diet: Regular basic diet -Zofran 4 mg IV push every 4 hours when necessary for nausea -Hold Metoclopramide schedule q8h for diarrhea -Protonix 40mg IV daily for GI prophylaxis -Hold Ashley-Colace for diarrhea Endo: SSI with Accu-Chek every 6h Will check hemoglobin A1c Electrolytes: Potassium within normal limits. Will continue to monitor and replete as necessary. DVT Prophylaxis - Lovenox (11) Dizziness Status: Acute Plan: Patient reports chronic vertigo with associated nausea. Meclizine 25 mg by mouth every 6 hours when necessary Zofran 4 mg IV every 4 hours when necessary for nausea or vomiting Metoclopramide/Reglan on hold for diarrhea (12) Insomnia Status: Acute Plan: Patient complaining of insomnia. Restoril 30 mg by mouth daily at bedtime when necessary Benadryl 50 mg by mouth daily at bedtime when necessary (Alexandro García MD R1) Problem Qualifiers (1) Sepsis: Qualified Code: A41.9 - Sepsis, due to unspecified organism (2) Acute renal failure: Qualified Code: N17.9 - Acute renal failure, unspecified acute renal failure type (3) Hypertension: Qualified Code: I10 - Essential hypertension Alexandro García MD R1 Jul 29, 2016 11:56 Elgin Antonio MD Jul 29, 2016 16:12
[2016-07-29] MEDS: LACTOBACILLUS ACIDOPHILUS TAB PO SCH ×2 (13:41→20:58)
[2016-07-29] MEDS: ATORVASTATIN 80 MG TAB PO SCH (20:55)
[2016-07-29] MEDS: REMOVE OLD NICODERM (NICOTINE) PATCH TD SCH (20:57)
[2016-07-29] MEDS: TEMAZEPAM 15 MG CAP PO PRN (23:36)
[2016-07-30] VITALS (8 sets, daily range): BP systolic 109–131; BP diastolic 58–76; PULSE 71–113; RESP 17–19; TEMP 97.9–98.2; O2SAT 92–98
[2016-07-30] MEDS: hydrALAZINE HCL 50 MG TAB PO SCH ×4 (01:46→22:19)
[2016-07-30] MEDS: INSULIN NovoLIN REGULAR SUPPLEMENTAL SCALE SQ SCH ×2 (01:48→12:00)
[2016-07-30] MEDS: METOPROLOL TARTRATE 25 MG TAB PO SCH ×3 (06:00→22:13)
[2016-07-30] MEDS: RESP: ALBUTEROL 2.5 MG/IPRATROPIUM 0.5 MG NEB (SCH) INH ×3 (07:46→19:31)
[2016-07-30 08:08] LABS: AUTOMATED NEUTROPHIL # 8.3 TH/MM3 (1.8-7.7); BASOPHIL % 0.4 % (0.0-2.0); EOSINOPHIL # 0.1 TH/MM3 (0-0.4); EOSINOPHIL % 0.6 % (0.0-4.0); HEMATOCRIT 27.9 % (39.0-51.0); HEMO FLAGS DIFF FINAL; LYMPH % 19.1 % (9.0-44.0); LYMPHOCYTE # 2.2 TH/MM3 (1.0-4.8); MEAN CELL VOLUME 95.4 FL (80.0-100.0); MEAN CORPUSCULAR HEMOGLOBIN 32.1 PG (27.0-34.0); MEAN CORPUSCULAR HGB CONC 33.7 % (32.0-36.0); MONO % 6.8 % (0.0-8.0); NEUT % 73.1 % (16.0-70.0); PLATELET COUNT 226 TH/MM3 (150-450); RED BLOOD COUNT 2.93 MIL/MM3 (4.50-5.90); RED CELL DISTRIBUTION WIDTH 14.1 % (11.6-17.2); WHITE BLOOD COUNT 11.3 TH/MM3 (4.0-11.0)
[2016-07-30 08:32] LABS: POTASSIUM 3.6 MEQ/L (3.5-5.1)
[2016-07-30] MEDS: ARTIFICIAL TEARS OPTH OINT 3.5 APPLIC/3.5 GM TUBO EACH EYE SCH ×2 (08:46→21:00)
[2016-07-30] MEDS: SODIUM CHLORIDE 0.9% FLUSH 5 ML FLUSH IVF SCH ×2 (08:46→08:53)
[2016-07-30] MEDS: SODIUM CHLORIDE 0.9% FLUSH 5 ML FLUSH FLUSH SCH ×2 (08:47→22:13)
[2016-07-30] MEDS: ACETAMINOPHEN/HYDROcodone 325 MG/10 MG TAB PO PRN ×4 (08:52→22:13)
[2016-07-30] MEDS: PANTOPRAZOLE SODIUM 40 MG VIAL IV PUSH SCH (08:52)
[2016-07-30] MEDS: THIAMINE HCL 100 MG TAB PO SCH (08:52)
[2016-07-30] MEDS: AZITHROMYCIN 250 MG TAB PO SCH (08:52)
[2016-07-30] MEDS: ENOXAPARIN SODIUM 40 MG/0.4 ML SYRINGE SQ SCH (08:52)
[2016-07-30] MEDS: methylPREDNISolone SOD SUCC 40 MG/1 ML VIAL IV PUSH SCH (08:53)
[2016-07-30] MEDS: LACTOBACILLUS ACIDOPHILUS TAB PO SCH ×2 (08:53→21:00)
[2016-07-30] MEDS: NICOTINE 21 MG/24 HR PATCH TD SCH (08:55)
--- NOTE | 2016-07-30 09:05 | HHI.FPPN ---
Objective Vitals Vital Signs Date Time Temp Pulse Resp B/P Pulse Ox O2 Delivery O2 Flow Rate FiO2 07/30/16 07:46 94 Nasal Cannula 2.00 07/30/16 04:00 07/30/16 00:00 98.2 79 18 114/63 98 07/29/16 20:17 98 Nasal Cannula 2.00 07/29/16 20:00 Nasal Cannula 2.00 07/29/16 20:00 80 07/29/16 20:00 97.8 80 20 143/80 96 07/29/16 16:00 97.7 81 20 118/72 96 07/29/16 14:00 80 07/29/16 12:00 98.0 88 20 131/71 97 I/O 07/29/16 07/29/16 07/29/16 07/30/16 07/30/16 07/30/16 07:00 15:00 23:00 07:00 15:00 23:00 Intake Total 360 ml 240 ml Output Total 500 ml 600 ml Balance -140 ml -360 ml Intake Oral 360 ml 240 ml Output Urine Total 500 ml 600 ml # Bowel Movements 1 1 1 Result Diagram: 07/30/1643 07/30/1643 Objective Remarks GEN: Well-developed, well-nourished lying in bed in no acute distress with nasal cannula in place. Awake and alert. Pt able to answer questions appropriately. NECK: Supple CV: Regular rate and rhythm with a grade 3/6 systolic murmur LUNGS: Anterior and lateral lung alba auscultated. Clear breath sounds bilaterally with good air movement, decreased breath sounds at lung bases. No wheezes or crackles. ABD: Soft nontender, nondistended Ext: Extremities warm and well-perfused. No lower extremity edema. No calf tenderness. Except for left foot drop and inability to dorsiflex his left foot, Patient with full range of motion of bilateral upper and lower extremities. NEURO/PSYCH: Alert and oriented. Cranial nerves grossly intact. Motor and sensory grossly intact. Patient able to respond to questions appropriately. Normal speech. Date of Insertion: Jul 18, 2016 Line: Central Venous Catheter Side: Left Location: Internal, Jugular A/P Assessment and Plan 55 year old male with h/o HTN, renal calculi, s/p bilateral ureteral stent placements presented due to bilateral flank pain more significant on the left x 3 days, admitted for left-sided pneumonia, sepsis, possible UTI, he was intubated, currently extubated. Critical care has signed off. Khan removed. Nephrology signed off. Discharge Planning Pending resolution of diarrhea and infectious disease recommendations: Anticipate discharge on Sunday pending continued clinical improvement on Azithromycin alone wdw Dr. Antonio Problem List: (1) Legionella pneumonia Status: Acute Plan: Severe sepsis present on admission, which is resolving. Currently extubated (07/25/16) after critical care management of ARDS due to legionella pneumonia. Current Antibiotics based on ID Recs:: * Azithromycin 07/08-changed to oral on 07/28/16 * Levaquin 07/10-changed to oral on 07/28/16. Stopped on 07/29/[address] ID Dr. Walsh, per our communication on 07/29/16 * Anticipate discharge on Sunday pending continued clinical improvement Pulmonary toilet including: * Albuterol and Duonebs * Solu-Medrol, 40mg Q12 * Incentive Spirometer * Supplemental oxygen Discontinued ABX: * Flagyl (07/11-07/24) * Cefepime (07/11-07/23) * Zyvox 07/09-07/11 * Zosyn 07/07-07/11 * Vancomycin 07/07-07/09, discontinued due to concern for drug fever and allergic interstitial nephritis Pulmonary consulted: appreciate recommendations * Bronchoscopy preformed on 07/17 * Bronchial washings significant for heavy growth of normal respiratory lashanda. No acid fast bacilli or fungal elements appreciated. Imaging: * CXR 07/24: Scattered patches in the left lung consistent with atelectasis/ pneumonia, clinical correlation recommended. Right perihilar atelectasis. Multiple lines and tubes in good position. * CXR 07/20: Left subclavian central venous catheter out. Other lines and tubes unchanged. No significant change, left greater than right bilateral airspace opacities and small left pleural effusion. * CXR 07/18: No significant change * CXR 07/17: Worsening consolidation and volume loss on the left * CXR 07/16: No significant change * CXR 07/15: Improved aeration of the left upper lobe compared to prior examination. Mild infiltrate right upper lobe. * CXR 07/09: Persistent severe diffuse left lung air space consolidation with likely left pleural effusion. Stable subtle airspace consolidation/opacity the in the right midlung * Chest CT: Consolidative changes in the left upper lobe. There is suspicious adenopathy in the mediastinum. This may be more than an inflammatory process Workup: -Afebrile since 07/09 -Legionella antigen positive in urine on 07/08 -1 of 2 blood culture on 07/07 positive for staph S/P coagulase-negative, likely due to contamination -Repeat blood cultures, sputum cultures, urine cx NGTD -Urine eosinophils: Negative -Follow repeat Urine and sputum culture 07/16 -serial chest xrays, he had bronch, pathology showing macrophages without malignant cells (2) Sepsis Status: Resolved Plan: Secondary to legionella pneumonia leading to severe ARDS. Patient also with bilateral ureteral stents. See treatment for pneumonia (3) Acute respiratory failure with hypoxia Status: Resolved Plan: Currently extubated Continue breathing treatments and supplemental oxygen See treatment for Legionella pneumonia (4) Acute renal failure Status: Acute Plan: S/P bilateral ureteral stents, JASON -Creatinine 1.11, improving. + UOP Urology consulted: Appreciate recommendations * Once clinical picture improves, may remove stents versus attempted ureteroscopy and laser lithotripsy * Will continue to follow Nephrology consulted and signed off: appreciate recommendations * JASON likely due to decreased renal perfusion, ATN versus AIN * Hydrating by mouth. No IVF required. Monitor fluid status, I&O's, electrolytes * Creatinine stable * Free water 300 mL every 4h Electrolytes: Potassium within normal limits. Will continue to monitor and replete as necessary. (5) ARDS (adult respiratory distress syndrome) Status: Resolved Plan: s/p Prone Therapy due to severe ARDS secondary to legionella pneumonia See treatment for legionella pneumonia (6) Encephalopathy Status: Resolved Plan: -Sedation discontinued as pt is now extubated -Pt awake and alert with normal speech. -EEG from 07/20 shows mild diffuse disturbances of cerebral function. No epileptiform features. Appears essentially normal at times. (7) Diarrhea Status: Acute Plan: Patient with multiple episodes of liquid diarrhea overnight. Stool C. difficile toxin PCR Lactobacillus probiotic for likely antibiotic induced diarrhea Hold Imodium Hold metoclopramide/Reglan Consider Bentyl pending results of C. difficile PCR (8) Hypertension Status: Acute Plan: ACS evaluation negative Echo 07/10: Mild to moderate LVH, normal systolic function, ejection fraction estimated to be 60%. No regional wall motion abnormalities. Mild mitral valve regurgitation. Medications: * Amlodipine 10 mg * Hydralazine 50mg PO q8 and PRN * Metoprolol 50 mg q8 * Labetalol 20 mg PRN (9) Hyperlipidemia Status: Acute Plan: Continue Atorvastatin 80 mg (10) Nutrition, metabolism, and development symptoms Status: Acute Plan: Diet: Regular basic diet -Zofran 4 mg IV push every 4 hours when necessary for nausea -Hold Metoclopramide schedule q8h for diarrhea -Protonix 40mg IV daily for GI prophylaxis -Hold Ashley-Colace for diarrhea Endo: SSI with Accu-Chek every 6h Will check hemoglobin A1c Electrolytes: Potassium within normal limits. Will continue to monitor and replete as necessary. DVT Prophylaxis - Lovenox (11) Dizziness Status: Acute Plan: Patient reports chronic vertigo with associated nausea. Meclizine 25 mg by mouth every 6 hours when necessary Zofran 4 mg IV every 4 hours when necessary for nausea or vomiting Metoclopramide/Reglan on hold for diarrhea (12) Insomnia Status: Acute Plan: Patient complaining of insomnia. Restoril 30 mg by mouth daily at bedtime when necessary Benadryl 50 mg by mouth daily at bedtime when necessary Problem Qualifiers (1) Sepsis: Qualified Code: A41.9 - Sepsis, due to unspecified organism (2) Acute renal failure: Qualified Code: N17.9 - Acute renal failure, unspecified acute renal failure type (3) Hypertension: Qualified Code: I10 - Essential hypertension Alexandro García MD R1 Jul 30, 2016 09:05
[2016-07-30] MEDS ORDERED: SIMETHICONE 125 MG CHEWABLE TAB PO PRN (09:30)
--- NOTE | 2016-07-30 09:34 | HHI.FPPN ---
Subjective Remarks Afebrile and vital signs stable overnight. Pt reports that he had a great night last night, and he attributes it to his nurse Abigail, who gave him all his medications, breathing treatments, monitored his vitals before bed, and then made sure he was undisturbed while he was sleeping. Patient reported getting about 7 hours of sleep, which is more sleep than usual. Per nurse report, pt requested no more glucose monitoring or vitals monitoring while sleeping. Patient requested a shower. Patient denies any fever, chills, chest pain, shortness of breath, lower extremity pain, cough. He reports that his diarrhea is getting better. His only complaint is some mild abdominal discomfort, which he attributes to gas. (Alexandro García MD R1) Objective Vitals Vital Signs Date Time Temp Pulse Resp B/P Pulse Ox O2 Delivery O2 Flow Rate FiO2 07/30/16 07:46 94 Nasal Cannula 2.00 07/30/16 04:00 07/30/16 00:00 98.2 79 18 114/63 98 07/29/16 20:17 98 Nasal Cannula 2.00 07/29/16 20:00 Nasal Cannula 2.00 07/29/16 20:00 80 07/29/16 20:00 97.8 80 20 143/80 96 07/29/16 16:00 97.7 81 20 118/72 96 07/29/16 14:00 80 07/29/16 12:00 98.0 88 20 131/71 97 I/O 07/29/16 07/29/16 07/29/16 07/30/16 07/30/16 07/30/16 07:00 15:00 23:00 07:00 15:00 23:00 Intake Total 360 ml 240 ml Output Total 500 ml 600 ml Balance -140 ml -360 ml Intake Oral 360 ml 240 ml Output Urine Total 500 ml 600 ml # Bowel Movements 1 1 1 (Alexandro García MD R1) Result Diagram: 07/30/1674207/30/16742 Objective Remarks GEN: Well-developed, well-nourished lying in bed in no acute distress with nasal cannula in place to 2 L/m. Awake and alert. Pt able to answer questions appropriately. NECK: Supple CV: Regular rate and rhythm with a grade 2-3/6 systolic murmur LUNGS: Anterior and lateral lung alba auscultated. Clear breath sounds bilaterally with good air movement, decreased breath sounds at lung bases. No wheezes or crackles. ABD: Soft nontender, nondistended Ext: Extremities warm and well-perfused. No lower extremity edema. No calf tenderness. Except for left foot drop and inability to dorsiflex his left foot, Patient with full range of motion of bilateral upper and lower extremities. Patient with 5 out of 5 strength in upper extremities, 5 out of 5 strength in the right hip flexor, 4-5 strength in left hip flexor. NEURO/PSYCH: Alert and oriented. Cranial nerves grossly intact. Motor and sensory grossly intact. Patient able to respond to questions appropriately. Normal speech. (Alexandro García MD R1) Date of Insertion: Jul 18, 2016 Line: Central Venous Catheter Side: Left Location: Internal, Jugular (Alexandro García MD R1) A/P Assessment and Plan 55 year old male with h/o HTN, renal calculi, s/p bilateral ureteral stent placements presented due to bilateral flank pain more significant on the left x 3 days, admitted for left-sided pneumonia, sepsis, possible UTI, he was intubated, currently extubated. Critical care has signed off. Khan removed. Nephrology signed off. Discharge Planning Pending resolution of diarrhea and infectious disease recommendations: Anticipate discharge on Sunday pending continued clinical improvement on Azithromycin alone. dw Dr. Antonio (Alexandro García MD R1) Attending Attestation Pt. examined and case discussed with resident physician I have read the above note and agree with the assessment/plan as discussed with me I was involved in all medical decision making for this patient Elgin Antonio MD (Elgin Antonio MD) Problem List: (1) Legionella pneumonia Status: Acute Plan: Severe sepsis present on admission, which is resolving. Currently extubated (07/25/16) after critical care management of ARDS due to legionella pneumonia. Current Antibiotics based on ID Recs:: * Azithromycin 07/08-changed to oral on 07/28/16 * Levaquin 07/10-changed to oral on 07/28/16. Stopped on 07/29/16 as instructed by DIANNE Walsh, per our communication on 07/29/16 * Anticipate discharge on Sunday pending continued clinical improvement Pulmonary toilet including: * Albuterol and Duonebs * Solu-Medrol, 40mg Q12 * Incentive Spirometer * Supplemental oxygen Discontinued ABX: * Flagyl (07/11-07/24) * Cefepime (07/11-07/23) * Zyvox 07/09-07/11 * Zosyn 07/07-07/11 * Vancomycin 07/07-07/09, discontinued due to concern for drug fever and allergic interstitial nephritis Pulmonary consulted: appreciate recommendations * Bronchoscopy preformed on 07/17 * Bronchial washings significant for heavy growth of normal respiratory lashanda. No acid fast bacilli or fungal elements appreciated. Imaging: * CXR 07/24: Scattered patches in the left lung consistent with atelectasis/ pneumonia, clinical correlation recommended. Right perihilar atelectasis. Multiple lines and tubes in good position. * CXR 07/20: Left subclavian central venous catheter out. Other lines and tubes unchanged. No significant change, left greater than right bilateral airspace opacities and small left pleural effusion. * CXR 07/18: No significant change * CXR 07/17: Worsening consolidation and volume loss on the left * CXR 07/16: No significant change * CXR 07/15: Improved aeration of the left upper lobe compared to prior examination. Mild infiltrate right upper lobe. * CXR 07/09: Persistent severe diffuse left lung air space consolidation with likely left pleural effusion. Stable subtle airspace consolidation/opacity the in the right midlung * Chest CT: Consolidative changes in the left upper lobe. There is suspicious adenopathy in the mediastinum. This may be more than an inflammatory process Workup: -Afebrile since 07/09 -Legionella antigen positive in urine on 07/08 -1 of 2 blood culture on 07/07 positive for staph S/P coagulase-negative, likely due to contamination -Repeat blood cultures, sputum cultures, urine cx NGTD -Urine eosinophils: Negative -Follow repeat Urine and sputum culture 07/16 -serial chest xrays, he had bronch, pathology showing macrophages without malignant cells (2) Sepsis Status: Resolved Plan: Secondary to legionella pneumonia leading to severe ARDS. Patient also with bilateral ureteral stents. See treatment for pneumonia (3) Acute respiratory failure with hypoxia Status: Resolved Plan: Currently extubated Continue breathing treatments and supplemental oxygen. Patient currently on oxygen at 2 L/m via nasal cannula. See treatment for Legionella pneumonia (4) Acute renal failure Status: Acute Plan: S/P bilateral ureteral stents, JASON -Creatinine 1.07, improving. + UOP Urology consulted: Appreciate recommendations * Once clinical picture improves, may remove stents versus attempted ureteroscopy and laser lithotripsy * Will continue to follow Nephrology consulted and signed off: appreciate recommendations * AJSON likely due to decreased renal perfusion, ATN versus AIN * Hydrating by mouth. No IVF required. Monitor fluid status, I&O's, electrolytes * Creatinine stable * Free water 300 mL every 4h Electrolytes: Potassium within normal limits. Will continue to monitor and replete as necessary. (5) ARDS (adult respiratory distress syndrome) Status: Resolved Plan: s/p Prone Therapy due to severe ARDS secondary to legionella pneumonia See treatment for legionella pneumonia (6) Encephalopathy Status: Resolved Plan: -Sedation discontinued as pt is now extubated -Pt awake and alert with normal speech. -EEG from 07/20 shows mild diffuse disturbances of cerebral function. No epileptiform features. Appears essentially normal at times. (7) Diarrhea Status: Acute Plan: Patient reports improving/decreasing diarrhea. Stool C. difficile toxin PCR negative Lactobacillus probiotic for likely antibiotic induced diarrhea Resume Imodium when necessary for diarrhea Resume metoclopramide/Reglan when necessary for no bowel movement Consider Bentyl Holding Ashley-Colace Simethicone 125 mg by mouth every 8 hours when necessary for gas pain/retention (8) Hypertension Status: Acute Plan: ACS evaluation negative Echo 07/10: Mild to moderate LVH, normal systolic function, ejection fraction estimated to be 60%. No regional wall motion abnormalities. Mild mitral valve regurgitation. Medications: * Amlodipine 10 mg * Hydralazine 50mg PO q8 and PRN * Metoprolol 50 mg q8 * Labetalol 20 mg PRN (9) Hyperlipidemia Status: Acute Plan: Continue Atorvastatin 80 mg (10) Nutrition, metabolism, and development symptoms Status: Acute Plan: Diet: Regular basic diet -Zofran 4 mg IV push every 4 hours when necessary for nausea -Resume Metoclopramide q8h when necessary for no bowel movement -Protonix 40mg IV daily for GI prophylaxis -Hold Ashley-Colace for diarrhea -Imodium when necessary -Metoclopramide/Reglan 5 mg IV push every 8 hours when necessary for nausea or vomiting Endo: Discontinue SSI with Accu-Chek every 6h as patient has had well-controlled blood sugars Hemoglobin A1c 6.7 Electrolytes: Potassium within normal limits. Will continue to monitor and replete as necessary. DVT Prophylaxis - Lovenox (11) Dizziness Status: Acute Plan: Patient reports chronic vertigo with associated nausea. Meclizine 25 mg by mouth every 6 hours when necessary Zofran 4 mg IV every 4 hours when necessary for nausea or vomiting Metoclopramide/Reglan 5 mg IV push every 8 hours when necessary for nausea or vomiting (12) Insomnia Status: Acute Plan: Patient complaining of insomnia. Restoril 30 mg by mouth daily at bedtime when necessary Benadryl 50 mg by mouth daily at bedtime when necessary (Alexandro García MD R1) Problem Qualifiers (1) Sepsis: Qualified Code: A41.9 - Sepsis, due to unspecified organism (2) Acute renal failure: Qualified Code: N17.9 - Acute renal failure, unspecified acute renal failure type (3) Hypertension: Qualified Code: I10 - Essential hypertension Alexandro García MD R1 Jul 30, 2016 09:34 Elgin Antonio MD Jul 30, 2016 17:06
--- NOTE | 2016-07-30 09:37 | RADRPT ---
EXAM DATE/TIME: 07/30/2016 08:57 [facility] COMPARISON: CHEST SINGLE AP, July 24, 2016, 7:46. INDICATIONS : Evaluate pneumonia MEDICAL HISTORY : Sepsis. SURGICAL HISTORY : None. ENCOUNTER: Subsequent ACUITY: 3 weeks PAIN SCORE: 2/10 LOCATION: Bilateral chest FINDINGS: A single view of the chest demonstrates the lungs to be symmetrically aerated without evidence of mas s, infiltrate or effusion. The previous support devices have been removed. No evidence of pneumothora x. The cardiomediastinal contours are unremarkable. Osseous structures are intact. CONCLUSION: No acute intrathoracic disease. Elgin Levin MD on July 30, 2016 at 9:35 Board Certified Radiologist. This report was verified electronically.
[2016-07-30] MEDS ORDERED: METOCLOPRAMIDE HCL 10 MG/2 ML VIAL IV PUSH PRN (10:45)
[2016-07-30] MEDS: LOPERAMIDE HCL 2 MG CAP PO PRN ×2 (11:59→22:14)
[2016-07-30] MEDS ORDERED: METOCLOPRAMIDE HCL 10 MG/2 ML VIAL IV PRN (12:15)
[2016-07-30] MEDS: REMOVE OLD NICODERM (NICOTINE) PATCH TD SCH (21:00)
[2016-07-30] MEDS: ATORVASTATIN 80 MG TAB PO SCH (22:14)
[2016-07-30] MEDS: TEMAZEPAM 15 MG CAP PO PRN (23:48)
[2016-07-31] VITALS (8 sets, daily range): BP systolic 15–119; BP diastolic 63–72; PULSE 67–107; RESP 18–20; TEMP 97.3–98.2; O2SAT 92–97
[2016-07-31] MEDS: METOPROLOL TARTRATE 25 MG TAB PO SCH ×3 (06:44→21:21)
[2016-07-31] MEDS: ACETAMINOPHEN/HYDROcodone 325 MG/10 MG TAB PO PRN ×4 (06:44→23:06)
--- NOTE | 2016-07-31 08:43 | HHI.FPPN ---
Subjective Remarks Pt seen and examined this morning. No acute events overnight. Pt reports feeling well. Diarrhea has resolved. Yesterday he was able to get out of bed and walk to the bathroom with assistance of his walker. He denies chest pain, shortness of breath, abdominal pain, lower extremity pain. Patient does not have insurance and has made arrangements without case management to have home health care and physical therapy after discharge. (Nadine Aly MD R2) Objective Vitals Vital Signs Date Time Temp Pulse Resp B/P Pulse Ox O2 Delivery O2 Flow Rate FiO2 07/31/16 08:27 98.1 79 18 117/70 94 07/30/16 20:45 98.2 104 17 109/62 94 07/30/16 20:00 Room Air 07/30/16 20:00 92 07/30/16 19:33 96 21 07/30/16 16:00 98.1 113 18 115/58 95 07/30/16 12:00 98.1 76 19 131/76 93 07/30/16 09:00 Nasal Cannula 2.00 I/O 07/30/16 07/30/16 07/30/16 07/31/16 07/31/16 07/31/16 07:00 15:00 23:00 07:00 15:00 23:00 Intake Total 494 ml 800 ml 925 ml Output Total 800 ml 800 ml 600 ml Balance -306 ml 0 ml 325 ml Intake Oral 480 ml 800 ml 925 ml IV Total 14 ml Output Urine Total 800 ml 800 ml 600 ml # Bowel Movements 1 0 0 0 (Nadine Aly MD R2) Result Diagram: 07/30/16 0743 07/30/16 0743 Objective Remarks GEN: Well-developed, well-nourished lying in bed in no acute distress with nasal cannula in place to 2 L/m. Awake and alert. Pt able to answer questions appropriately. NECK: Supple CV: Regular rate and rhythm with a grade 2-3/6 systolic murmur LUNGS: Clear breath sounds bilaterally with good air movement, decreased breath sounds at lung bases. No wheezes or crackles. ABD: Soft nontender, nondistended. + Bowel sounds Ext: Extremities warm and well-perfused. No lower extremity edema. No calf tenderness. Except for left foot drop and inability to dorsiflex his left foot, Patient with full range of motion of bilateral upper and lower extremities. Patient with 5 out of 5 strength in upper extremities, 5 out of 5 strength in the right hip flexor, 4-5 strength in left hip flexor. NEURO/PSYCH: Alert and oriented. Cranial nerves grossly intact. Motor and sensory grossly intact. Patient able to respond to questions appropriately. Normal speech. (Nadine Aly MD R2) Date of Insertion: Jul 18, 2016 Line: Central Venous Catheter Side: Left Location: Internal, Jugular (Nadine Aly MD R2) A/P Assessment and Plan 55 year old male with h/o HTN, renal calculi, s/p bilateral ureteral stent placements presented due to bilateral flank pain more significant on the left x 3 days, admitted for left-sided pneumonia, sepsis, possible UTI, he was intubated, currently extubated. Critical care has signed off. Khan removed. Nephrology signed off. Discharge Planning Anticipate discharge later today or tomorrow sdw Dr. García wdw Dr. Martinez (Nadine Aly MD R2) Attending Attestation Patient seen and examined. Case reviewed and discussed Agree with plan of care as discussed with me and documented in the resident note. Patient sitting up at the bedside, about to work with PT Motivated to get OOB. Discussed plan of care with patient and daughter at the bedside (Angelita Martinez MD) Problem List: (1) Legionella pneumonia Status: Acute Plan: Severe sepsis present on admission, which is resolving. Currently extubated (07/25/16) after critical care management of ARDS due to legionella pneumonia. Current Antibiotics based on ID Recs:: * Azithromycin 07/08 with stop date of 08/04 * Patient is cleared for discharge from an infectious disease standpoint Pulmonary toilet including: * Albuterol and Duonebs * Solu-Medrol, 40mg Q12 * Incentive Spirometer * Supplemental oxygen Discontinued ABX: * Levaquin (07/10-07/29) * Flagyl (07/11-07/24) * Cefepime (07/11-07/23) * Zyvox 07/09-07/11 * Zosyn 07/07-07/11 * Vancomycin 07/07-07/09, discontinued due to concern for drug fever and allergic interstitial nephritis Pulmonary consulted: appreciate recommendations * Bronchoscopy preformed on 07/17 * Bronchial washings significant for heavy growth of normal respiratory lashanda. No acid fast bacilli or fungal elements appreciated. Imaging: * CXR 07/30: No acute intrathoracic disease * CXR 07/24: Scattered patches in the left lung consistent with atelectasis/ pneumonia, clinical correlation recommended. Right perihilar atelectasis. Multiple lines and tubes in good position. * CXR 07/20: Left subclavian central venous catheter out. Other lines and tubes unchanged. No significant change, left greater than right bilateral airspace opacities and small left pleural effusion. * CXR 07/18: No significant change * CXR 07/17: Worsening consolidation and volume loss on the left * CXR 07/16: No significant change * CXR 07/15: Improved aeration of the left upper lobe compared to prior examination. Mild infiltrate right upper lobe. * CXR 07/09: Persistent severe diffuse left lung air space consolidation with likely left pleural effusion. Stable subtle airspace consolidation/opacity the in the right midlung * Chest CT: Consolidative changes in the left upper lobe. There is suspicious adenopathy in the mediastinum. This may be more than an inflammatory process Workup: -Afebrile since 07/09 -Legionella antigen positive in urine on 07/08 -1 of 2 blood culture on 07/07 positive for staph S/P coagulase-negative, likely due to contamination -Repeat blood cultures, sputum cultures, urine cx NGTD -Urine eosinophils: Negative -Follow repeat Urine and sputum culture 07/16 -serial chest xrays, he had bronch, pathology showing macrophages without malignant cells (2) Sepsis Status: Resolved Plan: Secondary to legionella pneumonia leading to severe ARDS. Patient also with bilateral ureteral stents. -See treatment for pneumonia (3) Acute respiratory failure with hypoxia Status: Resolved Plan: Currently extubated Continue breathing treatments and supplemental oxygen. Patient has been stable without supplemental oxygen for the past 24 hours. See treatment for Legionella pneumonia (4) Acute renal failure Status: Acute Plan: S/P bilateral ureteral stents, JASON -Creatinine 1.07 on 07/30, improving. + UOP Urology consulted: Appreciate recommendations * Once clinical picture improves, may remove stents versus attempted ureteroscopy and laser lithotripsy * Will continue to follow Nephrology consulted and signed off: appreciate recommendations * JASON likely due to decreased renal perfusion, ATN versus AIN * Hydrating by mouth. No IVF required. Monitor fluid status, I&O's, electrolytes * Creatinine stable (5) ARDS (adult respiratory distress syndrome) Status: Resolved Plan: s/p Prone Therapy due to severe ARDS secondary to legionella pneumonia See treatment for legionella pneumonia (6) Diarrhea Status: Acute Plan: Patient reports resolved diarrhea. Stool C. difficile toxin PCR negative Lactobacillus probiotic Resume Imodium when necessary for diarrhea Holding Ashley-Colace Simethicone 125 mg by mouth every 8 hours when necessary for gas pain/retention (7) Hypertension Status: Acute Plan: ACS evaluation negative Echo 07/10: Mild to moderate LVH, normal systolic function, ejection fraction estimated to be 60%. No regional wall motion abnormalities. Mild mitral valve regurgitation. Medications: * Amlodipine 10 mg * Hydralazine 50mg PO q8 and PRN * Metoprolol 50 mg q8 * Labetalol 20 mg PRN (8) Dizziness Status: Acute Plan: Patient reports chronic vertigo with associated nausea. Meclizine 25 mg by mouth every 6 hours when necessary Zofran 4 mg IV every 4 hours when necessary for nausea or vomiting Metoclopramide/Reglan 5 mg IV push every 8 hours when necessary for nausea or vomiting (9) Hyperlipidemia Status: Acute Plan: Continue Atorvastatin 80 mg (10) Encephalopathy Status: Resolved Plan: -Sedation discontinued as pt is now extubated -Pt awake and alert with normal speech. -EEG from 07/20 shows mild diffuse disturbances of cerebral function. No epileptiform features. Appears essentially normal at times. (11) Insomnia Status: Acute Plan: Patient complaining of insomnia. Restoril 30 mg by mouth daily at bedtime when necessary Benadryl 50 mg by mouth daily at bedtime when necessary (12) Nutrition, metabolism, and development symptoms Status: Acute Plan: Diet: Regular basic diet Electrolytes: Continue to monitor and replete as needed GI prophylaxis: Protonix 40mg IV daily for GI prophylaxis DVT prophylaxis: Lovenox (Nadine Aly MD R2) Problem Qualifiers (1) Sepsis: Qualified Code: A41.9 - Sepsis, due to unspecified organism (2) Acute renal failure: Qualified Code: N17.9 - Acute renal failure, unspecified acute renal failure type (3) Hypertension: Qualified Code: I10 - Essential hypertension Nadine Aly MD R2 Jul 31, 2016 08:43 Angelita Martinez MD Jul 31, 2016 11:24 Benadryl 50 mg by mouth daily at bedtime when necessary Problem Qualifiers (1) Sepsis: Qualified Code: A41.9 - Sepsis, due to unspecified organism (2) Acute renal failure: Qualified Code: N17.9 - Acute renal failure, unspecified acute renal failure type (3) Hypertension: Qualified Code: I10 - Essential hypertension Nadine Aly MD R2 Jul 31, 2016 08:43
[2016-07-31] MEDS: THIAMINE HCL 100 MG TAB PO SCH (09:00)
[2016-07-31] MEDS: ARTIFICIAL TEARS OPTH OINT 3.5 APPLIC/3.5 GM TUBO EACH EYE SCH ×2 (09:00→21:00)
[2016-07-31] MEDS: SODIUM CHLORIDE 0.9% FLUSH 5 ML FLUSH IVF SCH ×2 (09:00)
[2016-07-31] MEDS: NICOTINE 21 MG/24 HR PATCH TD SCH (09:03)
[2016-07-31] MEDS: predniSONE 20 MG TAB PO SCH (09:04)
[2016-07-31] MEDS: LACTOBACILLUS ACIDOPHILUS TAB PO SCH ×2 (09:04→21:21)
[2016-07-31] MEDS: ENOXAPARIN SODIUM 40 MG/0.4 ML SYRINGE SQ SCH (09:04)
[2016-07-31] MEDS: AZITHROMYCIN 250 MG TAB PO SCH (09:05)
[2016-07-31] MEDS: hydrALAZINE HCL 50 MG TAB PO SCH ×2 (09:05→17:17)
[2016-07-31] MEDS: SODIUM CHLORIDE 0.9% FLUSH 5 ML FLUSH FLUSH SCH ×2 (09:06→21:22)
[2016-07-31] MEDS: PANTOPRAZOLE SODIUM 40 MG VIAL IV PUSH SCH (09:06)
[2016-07-31] MEDS: MECLIZINE HCL 25 MG TAB PO PRN (09:20)
[2016-07-31] MEDS: RESP: ALBUTEROL 2.5 MG/IPRATROPIUM 0.5 MG NEB (SCH) INH ×3 (09:26→20:39)
--- NOTE | 2016-07-31 10:23 | HHI.DCPOC ---
Discharge Care Plan Diagnosis: (1) Sepsis (2) Legionella pneumonia (3) Urinary tract infection (4) ARDS (adult respiratory distress syndrome) Goals to Promote Your Health * To prevent worsening of your condition and complications, please take medications as prescribed. * To maintain your health at the optimal level, please work as much as possible physical therapy, and follow-up with doctors as instructed. Directions to Meet Your Goals Take your medications as prescribed Follow your dietary instruction Follow activity as directed Keep your appointments as scheduled Take your immunizations and boosters as scheduled If your symptoms worsen call your PCP, if no PCP go to Urgent Care Center or Emergency Room Smoking is Dangerous to Your Health. Avoid second hand smoke Call the 24-hour hour crisis hotline for domestic abuse at Alexandro García MD R1 Jul 31, 2016 10:23
--- NOTE | 2016-07-31 10:26 | HHI.FF ---
Face to Face Verification Diagnosis: (1) Urinary tract infection (2) Sepsis (3) Legionella pneumonia (4) ARDS (adult respiratory distress syndrome) Physical Therapy Order: Evaluate and Treat, Improve ambulation, Strength and gait training Occupational Therapy Order: Evaluate and Treat, Improve ADL Home Health Nursing Order: Medical education Signs/symptoms of disease process Medication education-adverse effect Nursing assessment with vital signs Home Health Aide Order: To Assist In: Bathing and personal care, hand chain maker and meal prep I have seen patient Oskar Ambrocio on 07/31/16. My clinical findings support the need for the requested home health care services because: Ltd mobility - disease progression Deconditioned w/ increased weakness High risk of falls I certify that my clinical findings support that this patient is homebound because: Unsteady gait/balance Unsafe to leave home unassisted Alexandro García MD R1 Jul 31, 2016 10:25
[2016-07-31 10:47] LABS: AUTOMATED NEUTROPHIL # 7.2 TH/MM3 (1.8-7.7); BASOPHIL % 0.3 % (0.0-2.0); EOSINOPHIL # 0.2 TH/MM3 (0-0.4); EOSINOPHIL % 1.9 % (0.0-4.0); HEMATOCRIT 30.8 % (39.0-51.0); HEMO FLAGS DIFF FINAL; LYMPHOCYTE # 1.4 TH/MM3 (1.0-4.8); MEAN CELL VOLUME 95.3 FL (80.0-100.0); MEAN CORPUSCULAR HEMOGLOBIN 31.8 PG (27.0-34.0); MEAN CORPUSCULAR HGB CONC 33.4 % (32.0-36.0); MONO % 6.4 % (0.0-8.0); NEUT % 76.4 % (16.0-70.0); PLATELET COUNT 231 TH/MM3 (150-450); RED BLOOD COUNT 3.23 MIL/MM3 (4.50-5.90); RED CELL DISTRIBUTION WIDTH 14.4 % (11.6-17.2); WHITE BLOOD COUNT 9.4 TH/MM3 (4.0-11.0)
[2016-07-31 11:10] LABS: BICARBONATE 25.9 MEQ/L (21.0-32.0); POTASSIUM 3.7 MEQ/L (3.5-5.1)
--- NOTE | 2016-07-31 15:33 | HHI.PR ---
Subjective Remarks alert no sob at rest now off O2 STARTED AMBULATING Objective Vital Signs Date Time Temp Pulse Resp B/P Pulse Ox O2 Delivery O2 Flow Rate FiO2 07/31/16 12:02 97.8 88 20 114/63 96 07/31/16 09:32 95 21 07/31/16 08:27 98.1 79 18 117/70 94 07/31/16 07:59 Room Air 07/31/16 07:59 67 07/30/16 20:45 98.2 104 17 109/62 94 07/30/16 20:00 Room Air 07/30/16 20:00 92 07/30/16 19:33 96 21 07/30/16 16:00 98.1 113 18 115/58 95 I/O 07/30/16 07/30/16 07/30/16 07/31/16 07/31/16 07/31/16 07:00 15:00 23:00 07:00 15:00 23:00 Intake Total 494 ml 800 ml 925 ml Output Total 800 ml 800 ml 600 ml Balance -306 ml 0 ml 325 ml Intake Oral 480 ml 800 ml 925 ml IV Total 14 ml Output Urine Total 800 ml 800 ml 600 ml # Bowel Movements 1 0 0 0 Result Diagram: 07/31/16 1029 07/31/16 1029 Objective Remarks Last Impressions Chest X-Ray 07/24/16 0000 Signed Impressions: Service Date/Time: Sunday, July 24, 2016 07:46 - CONCLUSION: 1. Scattered patchiness within the left lung consistent with atelectasis and/or pneumonia. Clinical correlation is recommended. 2. Right perihilar atelectasis. 3. Multiple tubes and lines are in good positions. Elbert Hector MD Soft Tissue Ultrasound 07/12/16 0000 Signed Impressions: Service Date/Time: Tuesday, July 12, 2016 19:25 - CONCLUSION: Well- defined heterogeneous mass which is nonspecific but likely represents a sebaceous cyst. Alexandro De La O MD Abdomen X-Ray 07/12/16 0000 Signed Impressions: Service Date/Time: Tuesday, July 12, 2016 16:59 - CONCLUSION: Nonspecific, benign abdomen appearance. Patel Torres MD Abdomen/Pelvis CT 07/07/16 1110 Signed Impressions: Service Date/Time: Thursday, July 07, 2016 11:31 - CONCLUSION: 1. Renal stones and stents in good position as described above. Yosvany Fuentes MD FACR Chest CT 07/07/16 0000 Signed Impressions: Service Date/Time: Thursday, July 07, 2016 16:09 - CONCLUSION: 1. Consolidative changes in the left upper lobe. There is suspicious adenopathy in the mediastinum. This may be more than an inflammatory process. 2. Bronchoscopy may be the easiest way to make a diagnosis of a neoplastic process. Yosvany Fuentes MD FACR Medications and IVs GENERAL: SKIN: Warm and dry. HEAD: Atraumatic. Normocephalic. EYES: Pupils equal and round. No scleral icterus. No injection or drainage. ENT: No nasal bleeding or discharge. Mucous membranes pink and moist. NECK: Trachea midline. No JVD. CARDIOVASCULAR: Regular rate and rhythm. RESPIRATORY: No accessory muscle use. Clear to auscultation. Breath sounds equal bilaterally. GASTROINTESTINAL: Abdomen soft, non-tender, nondistended. Hepatic and splenic margins not palpable. MUSCULOSKELETAL: Extremities without clubbing, cyanosis, or edema. No obvious deformities. NEUROLOGICAL: Awake and alert. No obvious cranial nerve deficits. Motor grossly within normal limits. Five out of 5 muscle strength in the arms and legs. Normal speech. PSYCHIATRIC: Appropriate mood and affect; insight and judgment normal. Assessment and Plan Assessment and Plan RESPIRATORY FAILURE SEPSIS IMPOVING P/ INCREASE ACTIVITY ANTIBIOTICS PER ID PULM TOILET WEAN O2 TOLERATED Theodore Jaimes MD Jul 31, 2016 15:33
--- NOTE | 2016-07-31 17:37 | HHI.IDPN ---
Subjective Subjective Remarks Mr. Ambrocio is a 55-year-old male with past medical history significant for renal calculi status post bilateral ureteral stent placements as well as hypertension who presented to the emergency department to bilateral flank pain for the past 3 days. He also had shortness of breath and chest discomfort on admission. UA with some pyuria. UC negative. CT A/P stent ok, no hydro. ID following for sepsis, pneumonia, legionella antigen positive, possible legionellosis with secondary bacterial infection. Overnight events reviewed with RN. ON RA Walking in room. Feels he is gaining strength. Afebrile BP OK UO ok No rash Antibiotics Azithro IV Levaquin IV Lines Line sites with no e/o infection Past Medical History reviewed. 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 Vital Signs Date Time Temp Pulse Resp B/P Pulse Ox O2 Delivery O2 Flow Rate FiO2 07/31/16 12:02 97.8 88 20 114/63 96 07/31/16 09:32 95 21 07/31/16 08:27 98.1 79 18 117/70 94 07/31/16 07:59 Room Air 07/31/16 07:59 67 07/30/16 20:45 98.2 104 17 109/62 94 07/30/16 20:00 Room Air 07/30/16 20:00 92 07/30/16 19:33 96 21 07/30/16 07/30/16 07/31/16 15:00 23:00 07:00 Intake Total 494 ml 800 ml 925 ml Output Total 800 ml 800 ml 600 ml Balance -306 ml 0 ml 325 ml Intake Oral 480 ml 800 ml 925 ml IV Total 14 ml Output Urine Total 800 ml 800 ml 600 ml # Bowel Movements 0 0 0 . Laboratory Tests Test 07/30/16 07/31/16 07:43 10:29 White Blood Count 11.3 TH/MM3 9.4 TH/MM3 Red Blood Count 2.93 MIL/MM3 3.23 MIL/MM3 Hemoglobin 9.4 GM/DL 10.3 GM/DL Hematocrit 27.9 % 30.8 % Mean Corpuscular Volume 95.4 FL 95.3 FL Mean Corpuscular Hemoglobin 32.1 PG 31.8 PG Mean Corpuscular Hemoglobin 33.7 % 33.4 % Concent Red Cell Distribution Width 14.1 % 14.4 % Platelet Count 226 TH/MM3 231 TH/MM3 Mean Platelet Volume 8.6 FL 8.6 FL Neutrophils (%) (Auto) 73.1 % 76.4 % Lymphocytes (%) (Auto) 19.1 % 15.0 % Monocytes (%) (Auto) 6.8 % 6.4 % Eosinophils (%) (Auto) 0.6 % 1.9 % Basophils (%) (Auto) 0.4 % 0.3 % Neutrophils # (Auto) 8.3 TH/MM3 7.2 TH/MM3 Lymphocytes # (Auto) 2.2 TH/MM3 1.4 TH/MM3 Monocytes # (Auto) 0.8 TH/MM3 0.6 TH/MM3 Eosinophils # (Auto) 0.1 TH/MM3 0.2 TH/MM3 Basophils # (Auto) 0.0 TH/MM3 0.0 TH/MM3 CBC Comment DIFF FINAL DIFF FINAL Differential Comment Laboratory Tests Test 07/30/16 07/31/16 07:43 10:29 Sodium Level 141 MEQ/L 139 MEQ/L Potassium Level 3.6 MEQ/L 3.7 MEQ/L Chloride Level 106 MEQ/L 105 MEQ/L Carbon Dioxide Level 26.0 MEQ/L 25.9 MEQ/L Anion Gap 9 MEQ/L 8 MEQ/L Blood Urea Nitrogen 20 MG/DL 18 MG/DL Creatinine 1.07 MG/DL 1.11 MG/DL Estimat Glomerular Filtration 71 ML/MIN 68 ML/MIN Rate Random Glucose 82 MG/DL 87 MG/DL Calcium Level 8.6 MG/DL 8.9 MG/DL Imaging Chest X-Ray 07/16/16 0000 Signed Impressions: Service Date/Time: Saturday, July 16, 2016 02:47 - CONCLUSION: No significant change has occurred. Andi Parra MD Chest X-Ray 07/15/16 0000 Signed Impressions: Service Date/Time: Friday, July 15, 2016 07:05 - CONCLUSION: 1. Improved aeration of the left upper lung compared to the prior examination. 2. Mild infiltrate right upper lung. Elgin Levin MD Chest X-Ray 07/15/16 0000 Signed Impressions: Service Date/Time: Friday, July 15, 2016 07:05 - CONCLUSION: 1. Improved aeration of the left upper lung compared to the prior examination. 2. Mild infiltrate right upper lung. Elgin Levin MD Soft Tissue Ultrasound 07/12/16 0000 Signed Impressions: Service Date/Time: Tuesday, July 12, 2016 19:25 - CONCLUSION: Well- defined heterogeneous mass which is nonspecific but likely represents a sebaceous cyst. Alexandro De La O MD Abdomen X-Ray 07/12/16 0000 Signed Impressions: Service Date/Time: Tuesday, July 12, 2016 16:59 - CONCLUSION: Nonspecific, benign abdomen appearance. Patel Torres MD Abdomen/Pelvis CT 07/07/16 1110 Signed Impressions: Service Date/Time: Thursday, July 07, 2016 11:31 - CONCLUSION: 1. Renal stones and stents in good position as described above. Yosvany Fuentes MD FACR Chest CT 07/07/16 0000 Signed Impressions: Service Date/Time: Thursday, July 07, 2016 16:09 - CONCLUSION: 1. Consolidative changes in the left upper lobe. There is suspicious adenopathy in the mediastinum. This may be more than an inflammatory process. 2. Bronchoscopy may be the easiest way to make a diagnosis of a neoplastic process. Yosvany Fuentes MD FACR Last Impressions Chest X-Ray 07/09/16 0000 Signed Impressions: Service Date/Time: Saturday, July 09, 2016 10:44 - CONCLUSION: Left subclavian central line tip is in the superior aspect of the SVC. No pneumothorax is visualized. Otherwise, stable exam. Patel Palmer MD Abdomen/Pelvis CT 07/07/16 1110 Signed Impressions: Service Date/Time: Thursday, July 07, 2016 11:31 - CONCLUSION: 1. Renal stones and stents in good position as described above. Yosvany Fuentes MD FACR Chest CT 07/07/16 0000 Signed Impressions: Service Date/Time: Thursday, July 07, 2016 16:09 - CONCLUSION: 1. Consolidative changes in the left upper lobe. There is suspicious adenopathy in the mediastinum. This may be more than an inflammatory process. 2. Bronchoscopy may be the easiest way to make a diagnosis of a neoplastic process. Yosvany Fuentes MD FACR Physical Exam GENERAL: Obese. Well nourished. SKIN: No rashes. Cool and dry. HEENT: Pump Back conjunctiva, no icterus. CARDIOVASCULAR: HS audible. No murmur appreciated. RESPIRATORY: Breath sounds diminished bilaterally posteriorly. GASTROINTESTINAL: soft, NT MUSCULOSKELETAL: Edema hands and feet NEUROLOGICAL: AAOx3,NF Psych pleasant, smiling. IV line sites with no evidence of infection. Assessment & Plan Remarks Pneumonia present on admission (community acquired, atypical) Likely Legionella Pneumonia. Bilateral ureteral stents. Recommendations: Continue Azithromycin oral. Check EKG for QT interval. If QT interval normal ok to DC on 4 more days of Azithro oral. If QT interval prolonged switch to doxy oral for 4 more days d.w pt and daughter D.w Will sign off please call back if any change in clinical condition or questions. Brenda Walsh MD Jul 31, 2016 17:37
[2016-07-31] MEDS: REMOVE OLD NICODERM (NICOTINE) PATCH TD SCH (21:00)
[2016-07-31] MEDS: ATORVASTATIN 80 MG TAB PO SCH (21:21)
[2016-08-01] VITALS (7 sets, daily range): BP systolic 117–126; BP diastolic 67–78; PULSE 70–101; RESP 16–18; TEMP 97–98.2; O2SAT 92–98
[2016-08-01] MEDS: hydrALAZINE HCL 50 MG TAB PO SCH ×2 (00:55→09:51)
[2016-08-01] MEDS: TEMAZEPAM 15 MG CAP PO PRN (00:55)
[2016-08-01] MEDS: METOPROLOL TARTRATE 25 MG TAB PO SCH ×2 (05:45→14:18)
[2016-08-01] MEDS: ACETAMINOPHEN/HYDROcodone 325 MG/10 MG TAB PO PRN (08:39)
[2016-08-01] MEDS ORDERED: PANTOPRAZOLE SOD 40 MG DELAYED RELEASE TAB PO SCH (09:00)
[2016-08-01] MEDS: THIAMINE HCL 100 MG TAB PO SCH (09:00)
[2016-08-01] MEDS: SODIUM CHLORIDE 0.9% FLUSH 5 ML FLUSH IVF SCH ×2 (09:00)
[2016-08-01] MEDS: ARTIFICIAL TEARS OPTH OINT 3.5 APPLIC/3.5 GM TUBO EACH EYE SCH (09:00)
[2016-08-01] MEDS: LACTOBACILLUS ACIDOPHILUS TAB PO SCH (09:00)
[2016-08-01] MEDS: RESP: ALBUTEROL 2.5 MG/IPRATROPIUM 0.5 MG NEB (SCH) INH ×2 (09:26→12:46)
[2016-08-01] MEDS: NICOTINE 21 MG/24 HR PATCH TD SCH (09:50)
[2016-08-01] MEDS: AZITHROMYCIN 250 MG TAB PO SCH (09:50)
[2016-08-01] MEDS: MECLIZINE HCL 25 MG TAB PO PRN (09:50)
[2016-08-01] MEDS: predniSONE 20 MG TAB PO SCH (09:51)
[2016-08-01] MEDS: ENOXAPARIN SODIUM 40 MG/0.4 ML SYRINGE SQ SCH (09:51)
[2016-08-01] MEDS: ONDANSETRON HCL 4 MG/2 ML VIAL IV PUSH SCH (09:52)
[2016-08-01] MEDS: SODIUM CHLORIDE 0.9% FLUSH 5 ML FLUSH FLUSH SCH (09:52)
--- NOTE | 2016-08-01 10:38 | EKG ---
Date Performed: 07/31/2016 Time Performed: 13:54:44 PTAGE: 56 years EKG: Sinus rhythm LIMB LEAD VOLTAGE HAS SLIGHTLY INCREASED SINCE THE PRIOR TRACING. NORMAL ECG PREVIOUS TRACING : 07/17/2016 21.35 DOCTOR: Nick North Interpretating Date/Time 08/01/2016 10:36:28
[2016-08-01] MEDS ORDERED: AZIT500T2 PO (11:35)
[2016-08-01] MEDS ORDERED: HYDR50TA15 PO (11:47)
[2016-08-01] MEDS ORDERED: PRED5TAB PO (11:47)
[2016-08-01] MEDS ORDERED: METO25TA3 PO (11:47)
[2016-08-01] MEDS ORDERED: MECL-62 PO (11:47)
[2016-08-01] MEDS ORDERED: LACT PO (11:47)
[2016-08-01] MEDS ORDERED: VENTAER INH (12:21)
[2016-08-01] MEDS ORDERED: PANT40TA3 PO (12:21)
[2016-08-01] MEDS ORDERED: PNEUMOCOCCAL POLYVALENT INJ 25 MCG/0.5 ML SYR IM ONE (14:00)
--- NOTE | 2016-08-01 14:39 | HHI.FPPN ---
Subjective Remarks Pt seen and examined. No acute events overnight. Patient has been ambulating around the room with the assistance of a walker. He denies chest pain, short of breath, abdominal pain, lower extremity pain. He feels as if he has made great progress regarding his strength. He expresses the desire to go home today. Pt dose not have insurance and he declines physical therapy at rehab which has been recommended. He understands the risks of not following this recommendation. He has decided to arrange his own home health care and home physical therapy. (Nadine Aly MD R2) Objective Vitals Vital Signs Date Time Temp Pulse Resp B/P Pulse Ox O2 Delivery O2 Flow Rate FiO2 08/01/16 14:05 70 08/01/16 12:00 97.0 101 18 117/71 92 08/01/16 09:28 98 21 08/01/16 08:00 98.2 85 18 120/67 92 08/01/16 05:46 97.5 83 16 126/73 97 08/01/16 00:54 120/78 08/01/16 00:00 97.9 78 18 117/69 93 07/31/16 21:46 98.2 86 18 115/72 92 07/31/16 20:39 94 07/31/16 20:00 100 07/31/16 20:00 Room Air 07/31/16 16:02 97.3 107 18 119/69 97 I/O 07/31/16 07/31/16 07/31/16 08/01/16 08/01/16 08/01/16 07:00 15:00 23:00 07:00 15:00 23:00 Intake Total 925 ml 480 ml 500 ml Output Total 600 ml 600 ml 350 ml Balance 325 ml -120 ml -350 ml 500 ml Intake Oral 925 ml 480 ml 500 ml Output Urine Total 600 ml 600 ml 350 ml # Voids 2 # Bowel Movements 0 0 0 (Nadine Aly MD R2) Result Diagram: 07/31/16 1029 07/31/16 1029 Objective Remarks GEN: Well-developed, well-nourished lying in bed in no acute distress with nasal cannula in place to 2 L/m. Awake and alert. Pt able to answer questions appropriately. NECK: Supple CV: Regular rate and rhythm with a grade 2-3/6 systolic murmur LUNGS: Clear breath sounds bilaterally with good air movement, decreased breath sounds at lung bases. No wheezes or crackles. ABD: Soft nontender, nondistended. + Bowel sounds Ext: Extremities warm and well-perfused. No lower extremity edema. No calf tenderness. Except for left foot drop and inability to dorsiflex his left foot, Patient with full range of motion of bilateral upper and lower extremities. Patient with 5 out of 5 strength in upper extremities. Pt able to stand and walk with his walker. NEURO/PSYCH: Alert and oriented. Cranial nerves grossly intact. Motor and sensory grossly intact. Patient able to respond to questions appropriately. Normal speech. (Nadine Aly MD R2) Date of Insertion: Jul 18, 2016 Line: Central Venous Catheter Side: Left Location: Internal, Jugular (Nadine Aly MD R2) A/P Assessment and Plan 55 year old male with h/o HTN, renal calculi, s/p bilateral ureteral stent placements presented due to bilateral flank pain more significant on the left x 3 days, admitted for left-sided pneumonia, sepsis, possible UTI, he was intubated, currently extubated. Critical care has signed off. Khan removed. Nephrology signed off. Discharge Planning Anticipate discharge later today. suhasw Dr. García wdw Dr. Martinez (Nadine Aly MD R2) Attending Attestation Patient seen and examined. Case reviewed and discussed Agree with plan of care as discussed with me and documented in the resident note. Dw Dr. Walsh, patient, and patient's daughter at the bedside. Refuses inpatient rehab, SNF. Counseled on risks. (Angelita Martinez MD) Problem List: (1) Legionella pneumonia Status: Acute Plan: Severe sepsis present on admission, which is resolving. Currently extubated (07/25/16) after critical care management of ARDS due to legionella pneumonia. Patient believes that he may have acquired for Legionella from a machine unit that combines oil and water to produce a mist. He is the only person who has had access to this machine. He lives in a fairly new apartment complex. While in the hospital his air conditioning ducts have been cleaned. Current Antibiotics based on ID Recs:: * Azithromycin 07/08 with stop date of 08/04 * Patient is cleared for discharge from an infectious disease standpoint Continue: * Albuterol and Duonebs * Prednisone 20 mg po daily * Incentive Spirometer * Supplemental oxygen as needed, patient has not required supplemental oxygen for over 24 hours. Pulmonary consulted: appreciate recommendations * Bronchoscopy preformed on 07/17 * Bronchial washings significant for heavy growth of normal respiratory lashanda. No acid fast bacilli or fungal elements appreciated. Imaging: * CXR 07/30: No acute intrathoracic disease * CXR 07/24: Scattered patches in the left lung consistent with atelectasis/ pneumonia, clinical correlation recommended. Right perihilar atelectasis. Multiple lines and tubes in good position. * CXR 07/20: Left subclavian central venous catheter out. Other lines and tubes unchanged. No significant change, left greater than right bilateral airspace opacities and small left pleural effusion. * CXR 07/18: No significant change * CXR 07/17: Worsening consolidation and volume loss on the left * CXR 07/16: No significant change * CXR 07/15: Improved aeration of the left upper lobe compared to prior examination. Mild infiltrate right upper lobe. * CXR 07/09: Persistent severe diffuse left lung air space consolidation with likely left pleural effusion. Stable subtle airspace consolidation/opacity the in the right midlung * Chest CT: Consolidative changes in the left upper lobe. There is suspicious adenopathy in the mediastinum. This may be more than an inflammatory process (2) Sepsis Status: Resolved Plan: Secondary to legionella pneumonia leading to severe ARDS. Patient also with bilateral ureteral stents. -See treatment for pneumonia (3) Physical deconditioning Status: Acute Plan: Physical therapy has seen and evaluated patient and recommend PT at rehabilitation. Pt dose not have insurance and he declines physical therapy at rehab which has been recommended. He understands the risks of not following this recommendation. He has decided to arrange his own home health care and home physical therapy. (4) Acute renal failure Status: Acute Plan: Resolved S/P bilateral ureteral stents, JASON -Creatinine within normal limits at 1.11 + UOP Urology consulted: Appreciate recommendations * Once clinical picture improves, may remove stents versus attempted ureteroscopy and laser lithotripsy * Patient to follow-up with urology 2 weeks after discharge Nephrology consulted and signed off: appreciate recommendations * JASON likely due to decreased renal perfusion, ATN versus AIN * Monitor fluid status, I&O's, electrolytes * Creatinine stable (5) ARDS (adult respiratory distress syndrome) Status: Resolved Plan: s/p Prone Therapy due to severe ARDS secondary to legionella pneumonia See treatment for legionella pneumonia (6) Diarrhea Status: Acute Plan: Patient reports resolved diarrhea. Stool C. difficile toxin PCR negative Continue Lactobacillus probiotic Imodium prn Simethicone 125 mg by mouth every 8 hours when necessary for gas pain/retention (7) Hypertension Status: Acute Plan: ACS evaluation negative Echo 07/10: Mild to moderate LVH, normal systolic function, ejection fraction estimated to be 60%. No regional wall motion abnormalities. Mild mitral valve regurgitation. Medications: * Amlodipine 10 mg * Hydralazine 50mg PO q8 and PRN * Metoprolol 50 mg q8 * Labetalol 20 mg PRN (8) Dizziness Status: Acute Plan: Patient reports chronic vertigo with associated nausea. Meclizine 25 mg by mouth every 6 hours when necessary Zofran 4 mg IV every 4 hours when necessary for nausea or vomiting Metoclopramide/Reglan 5 mg IV push every 8 hours when necessary for nausea or vomiting (9) Hyperlipidemia Status: Acute Plan: Continue Atorvastatin 80 mg (10) Insomnia Status: Acute Plan: Patient complaining of insomnia. Restoril 30 mg by mouth daily at bedtime when necessary Benadryl 50 mg by mouth daily at bedtime when necessary (11) Nutrition, metabolism, and development symptoms Status: Acute Plan: Diet: Regular basic diet Electrolytes: Continue to monitor and replete as needed GI prophylaxis: Protonix 40mg daily for GI prophylaxis DVT prophylaxis: Lovenox (Nadine Aly MD R2) Problem Qualifiers (1) Sepsis: Qualified Code: A41.9 - Sepsis, due to unspecified organism (2) Acute renal failure: Qualified Code: N17.9 - Acute renal failure, unspecified acute renal failure type (3) Hypertension: Qualified Code: I10 - Essential hypertension Nadine Aly MD R2 Aug 01, 2016 14:39 Angelita Martinez MD Aug 01, 2016 17:12
--- NOTE | 2016-09-25 03:21 | HHI.DS ---
Discharge Summary Admission Date Jul 07, 2016 at 13:41 Admitting Diagnosis sepsis, left pneumonia (1) Legionella pneumonia Diagnosis: Principal Plan: Severe sepsis present on admission, which is resolving. Currently extubated (07/25/16) after critical care management of ARDS due to legionella pneumonia. Patient believes that he may have acquired for Legionella from a machine unit that combines oil and water to produce a mist. He is the only person who has had access to this machine. He lives in a fairly new apartment complex. While in the hospital his air conditioning ducts have been cleaned. Current Antibiotics based on ID Recs:: * Azithromycin 07/08 with stop date of 08/04 * Patient is cleared for discharge from an infectious disease standpoint Continue: * Albuterol and Duonebs * Prednisone 20 mg po daily * Incentive Spirometer * Supplemental oxygen as needed, patient has not required supplemental oxygen for over 24 hours. Pulmonary consulted: appreciate recommendations * Bronchoscopy preformed on 07/17 * Bronchial washings significant for heavy growth of normal respiratory lashanda. No acid fast bacilli or fungal elements appreciated. Imaging: * CXR 07/30: No acute intrathoracic disease * CXR 07/24: Scattered patches in the left lung consistent with atelectasis/ pneumonia, clinical correlation recommended. Right perihilar atelectasis. Multiple lines and tubes in good position. * CXR 07/20: Left subclavian central venous catheter out. Other lines and tubes unchanged. No significant change, left greater than right bilateral airspace opacities and small left pleural effusion. * CXR 07/18: No significant change * CXR 07/17: Worsening consolidation and volume loss on the left * CXR 07/16: No significant change * CXR 07/15: Improved aeration of the left upper lobe compared to prior examination. Mild infiltrate right upper lobe. * CXR 07/09: Persistent severe diffuse left lung air space consolidation with likely left pleural effusion. Stable subtle airspace consolidation/opacity the in the right midlung * Chest CT: Consolidative changes in the left upper lobe. There is suspicious adenopathy in the mediastinum. This may be more than an inflammatory process (2) Sepsis Diagnosis: Principal Plan: Secondary to legionella pneumonia leading to severe ARDS. Patient also with bilateral ureteral stents. -See treatment for pneumonia (3) Physical deconditioning Diagnosis: Secondary Plan: Physical therapy has seen and evaluated patient and recommend PT at rehabilitation. Pt dose not have insurance and he declines physical therapy at rehab which has been recommended. He understands the risks of not following this recommendation. He has decided to arrange his own home health care and home physical therapy. (4) Acute renal failure Diagnosis: Principal Plan: Resolved S/P bilateral ureteral stents, JASON -Creatinine within normal limits at 1.11 + UOP Urology consulted: Appreciate recommendations * Once clinical picture improves, may remove stents versus attempted ureteroscopy and laser lithotripsy * Patient to follow-up with urology 2 weeks after discharge Nephrology consulted and signed off: appreciate recommendations * JASON likely due to decreased renal perfusion, ATN versus AIN * Monitor fluid status, I&O's, electrolytes * Creatinine stable (5) ARDS (adult respiratory distress syndrome) Diagnosis: Principal Plan: s/p Prone Therapy due to severe ARDS secondary to legionella pneumonia See treatment for legionella pneumonia (6) Diarrhea Diagnosis: Secondary Plan: Patient reports resolved diarrhea. Stool C. difficile toxin PCR negative Continue Lactobacillus probiotic Imodium prn Simethicone 125 mg by mouth every 8 hours when necessary for gas pain/retention (7) Hypertension Diagnosis: Secondary Plan: ACS evaluation negative Echo 07/10: Mild to moderate LVH, normal systolic function, ejection fraction estimated to be 60%. No regional wall motion abnormalities. Mild mitral valve regurgitation. Medications: * Amlodipine 10 mg * Hydralazine 50mg PO q8 and PRN * Metoprolol 50 mg q8 * Labetalol 20 mg PRN (8) Dizziness Diagnosis: Secondary Plan: Patient reports chronic vertigo with associated nausea. Meclizine 25 mg by mouth every 6 hours when necessary Zofran 4 mg IV every 4 hours when necessary for nausea or vomiting Metoclopramide/Reglan 5 mg IV push every 8 hours when necessary for nausea or vomiting (9) Hyperlipidemia Diagnosis: Secondary Plan: Continue Atorvastatin 80 mg (10) Insomnia Diagnosis: Secondary Plan: Patient complaining of insomnia. Restoril 30 mg by mouth daily at bedtime when necessary Benadryl 50 mg by mouth daily at bedtime when necessary (11) Nutrition, metabolism, and development symptoms Diagnosis: Secondary Plan: Diet: Regular basic diet Electrolytes: Continue to monitor and replete as needed GI prophylaxis: Protonix 40mg daily for GI prophylaxis DVT prophylaxis: Lovenox Consultants Critical care, urology, nephrology, infectious disease Brief History 55 year old male with h/o HTN, renal calculi, s/p bilateral ureteral stent placements presents to the ED due to bilateral flank pain for the past three days. Daughter states over the past few days patient has been having a lot of abdominal pain. Fever yesterday of 102 F taken orally, severe body aches since Sunday, intermittent chills with diaphoresis also since Sunday. Patient is complaining of very severe left sided flank pain. Patient states since having his ureteral stents placed this past April he has had issues urinary, he states he has severe dribbling, occasional gross hematuria, and dysuria. His daughter reports gross hematuria this morning. He states he has had a loss of appetite since Sunday. States one episode of vomiting, nonbloody nonbilious yesterday, no vomiting today. States he has had a cough beginning this past Sunday, cough has mostly been dry, denies any shortness of breath in the past 4 days. 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 Denies any recent travel. Imaging Imaging: * CXR 07/30: No acute intrathoracic disease * CXR 07/24: Scattered patches in the left lung consistent with atelectasis/ pneumonia, clinical correlation recommended. Right perihilar atelectasis. Multiple lines and tubes in good position. * CXR 07/20: Left subclavian central venous catheter out. Other lines and tubes unchanged. No significant change, left greater than right bilateral airspace opacities and small left pleural effusion. * CXR 07/18: No significant change * CXR 07/17: Worsening consolidation and volume loss on the left * CXR 07/16: No significant change * CXR 07/15: Improved aeration of the left upper lobe compared to prior examination. Mild infiltrate right upper lobe. * CXR 07/09: Persistent severe diffuse left lung air space consolidation with likely left pleural effusion. Stable subtle airspace consolidation/opacity the in the right midlung * Chest CT: Consolidative changes in the left upper lobe. There is suspicious adenopathy in the mediastinum. This may be more than an inflammatory process Last Impressions Chest X-Ray 07/30/16 0900 Signed Impressions: Service Date/Time: Saturday, July 30, 2016 08:57 - CONCLUSION: No acute intrathoracic disease. Elgin Levin MD Soft Tissue Ultrasound 07/12/16 0000 Signed Impressions: Service Date/Time: Tuesday, July 12, 2016 19:25 - CONCLUSION: Well- defined heterogeneous mass which is nonspecific but likely represents a sebaceous cyst. Alexandro De La O MD Abdomen X-Ray 07/12/16 0000 Signed Impressions: Service Date/Time: Tuesday, July 12, 2016 16:59 - CONCLUSION: Nonspecific, benign abdomen appearance. Patel Torres MD Abdomen/Pelvis CT 07/07/16 1110 Signed Impressions: Service Date/Time: Thursday, July 07, 2016 11:31 - CONCLUSION: 1. Renal stones and stents in good position as described above. Yosvany Fuentes MD FACR Chest CT 07/07/16 0000 Signed Impressions: Service Date/Time: Thursday, July 07, 2016 16:09 - CONCLUSION: 1. Consolidative changes in the left upper lobe. There is suspicious adenopathy in the mediastinum. This may be more than an inflammatory process. 2. Bronchoscopy may be the easiest way to make a diagnosis of a neoplastic process. Yosvany Fuentes MD FACR PE at Discharge GEN: Well-developed, well-nourished lying in bed in no acute distress with nasal cannula in place to 2 L/m. Awake and alert. Pt able to answer questions appropriately. NECK: Supple CV: Regular rate and rhythm with a grade 2-3/6 systolic murmur LUNGS: Clear breath sounds bilaterally with good air movement, decreased breath sounds at lung bases. No wheezes or crackles. ABD: Soft nontender, nondistended. + Bowel sounds Ext: Extremities warm and well-perfused. No lower extremity edema. No calf tenderness. Except for left foot drop and inability to dorsiflex his left foot, Patient with full range of motion of bilateral upper and lower extremities. Patient with 5 out of 5 strength in upper extremities. Pt able to stand and walk with his walker. NEURO/PSYCH: Alert and oriented. Cranial nerves grossly intact. Motor and sensory grossly intact. Patient able to respond to questions appropriately. Normal speech. Hospital Course Pt presented with pain from bilateral stents for renal calculi, so urology was consulted. Pt also had JASON for which nephrology was consulted. Pt was admitted with severe sepsis, which resolved with antibiotics (Azithromycin from 07/08 with stop date of 08/04 per infectious disease recommendations). After critical care consult and management of ARDS due to legionella pneumonia, pt was extubated on 07/25/16. Patient believes that he may have acquired for Legionella from a machine unit that combines oil and water to produce a mist. He was also determined to walk before leaving the hospital, which he did. Pt Condition on Discharge: Good Discharge Disposition: Discharge Home Discharge Instructions DIET: Follow Instructions for: Heart Healthy Diet, Diabetic Diet Activities you can perform: Weight Bearing as Marisol Follow up Referrals: PCP Follow-up - 1 Week Urology - 2 Weeks New Medications: Albuterol 18 GM Inh (Ventolin Hfa 18 GM Inh) 90 Mcg/Act Aer 2 PUFF INH Q4-6H PRN SHORTNESS OF BREATH #1 Ref 0 INHALER Azithromycin (Azithromycin) 500 Mg Tab 500 MG PO DAILY Infection #4 Ref 0 TAB Prednisone (Prednisone) 5 Mg Tab 5 MG PO DAILY Take 15mg for 5 days, then 10mg for 5 days, then 5mg for 5 days. # 30 Ref 0 TAB Hydralazine (Hydralazine) 50 Mg Tab 50 MG PO Q8H #90 TAB Lactobacillus Acidophilus (Acidophilus/l-Sporogenes) 1 Tab Tab 1 TAB PO Q12HR #30 TAB Meclizine (Meclizine) 25 Mg Tab 25 MG PO Q6H PRN dizziness #60 TAB Metoprolol Tartrate (Metoprolol Tartrate) 25 Mg Tab 50 MG PO Q8HR #90 TAB Pantoprazole (Pantoprazole) 40 Mg Tab 40 MG PO DAILY #30 TAB Continued Medications: Albuterol 18 GM Inh (Ventolin Hfa 18 GM Inh) 90 Mcg/Act Aer 1-2 PUFF INH Q4-6H PRN SHORTNESS OF BREATH #1 Ref 0 INHALER Amlodipine (Amlodipine) 10 Mg Tab 10 MG PO DAILY Blood Pressure Management #30 Ref 0 TAB Atorvastatin (Atorvastatin) 80 Mg Tab 80 MG PO HS Cholesterol Management #30 Ref 0 TAB Dexlansoprazole (Dexilant) 60 Mg Cap 60 MG PO DAILY #30 Ref 0 CAP Hydrocodone-Acetaminophen ([place]) 7.5-325 mg Tab 1-2 TAB PO Q6H PRN PAIN Ref 0 TAB Alexandro García MD R1 Sep 25, 2016 03:21
== END 2016-08-01 15:03 | disposition home health service (06) | DRG 870 ==
LOC: NEPE 10:16 → NEDA 13:41 → NEDH 18:34 → N04A 20:49 → HIMW 07-08 10:39 → N04B 07-28 15:55
PROVIDERS: ADMIT Family Medicine; ATTEND Family Medicine
PROC: 5A1955Z Respiratory Ventilation, Greater than 96 Consecutive Hours (ICD-10-PCS; principal; 2016-07-08)
PROC: 0BH17EZ Insertion of Endotracheal Airway into Trachea, Via Natural or Artificial Opening (ICD-10-PCS; 2016-07-08)
PROC: 02HV33Z Insertion of Infusion Device into Superior Vena Cava, Percutaneous Approach (ICD-10-PCS; 2016-07-09)
PROC: 0B9B8ZX Drainage of Left Lower Lobe Bronchus, Via Natural or Artificial Opening Endoscopic, Diagnostic (ICD-10-PCS; 2016-07-17)
PROC: 0BC78ZZ Extirpation of Matter from Left Main Bronchus, Via Natural or Artificial Opening Endoscopic (ICD-10-PCS; 2016-07-17)
PROC: 0BC88ZZ Extirpation of Matter from Left Upper Lobe Bronchus, Via Natural or Artificial Opening Endoscopic (ICD-10-PCS; 2016-07-17)
DX: A41.9 Sepsis, unspecified organism (principal); J96.01 Acute respiratory failure with hypoxia; N17.0 Acute kidney failure with tubular necrosis; R65.21 Severe sepsis with septic shock; A48.1 Legionnaires' disease; G93.41 Metabolic encephalopathy; J80 Acute respiratory distress syndrome; K52.1 Toxic gastroenteritis and colitis; E87.1 Hypo-osmolality and hyponatremia; E44.0 Moderate protein-calorie malnutrition; E87.0 Hyperosmolality and hypernatremia; E87.2 Acidosis; J44.0 Chronic obstructive pulmonary disease with (acute) lower respiratory infection; J98.19 Other pulmonary collapse; N39.0 Urinary tract infection, site not specified; R31.0 Gross hematuria; E86.0 Dehydration; E87.5 Hyperkalemia; F17.210 Nicotine dependence, cigarettes, uncomplicated; G47.00 Insomnia, unspecified; K21.9 Gastro-esophageal reflux disease without esophagitis; R73.9 Hyperglycemia, unspecified; T38.0X5A Adverse effect of glucocorticoids and synthetic analogues, initial encounter; I10 Essential (primary) hypertension; N20.0 Calculus of kidney; E83.51 Hypocalcemia; K59.00 Constipation, unspecified; E87.70 Fluid overload, unspecified; E78.5 Hyperlipidemia, unspecified; D64.9 Anemia, unspecified; T36.95XA Adverse effect of unspecified systemic antibiotic, initial encounter; Z86.14 Personal history of Methicillin resistant Staphylococcus aureus infection; Z68.24 Body mass index [BMI] 24.0-24.9, adult; Z88.2 Allergy status to sulfonamides; Z91.013 Allergy to seafood; Z23 Encounter for immunization
CPT/HCPCS: 31500; 36556; 36600; 36620; 71010; 71250; 74000; 74176; 76937; 76999; 80048; 80053; 80069; 80074; 80076; 81001; 82043; 82550; 82805; 82947; 82948; 83036; 83605; 83690; 83735; 84100; 84132; 84155; 84165; 85007; 85025; 85027; 85610; 85730; 86021; 86038; 86160; 86403; 86703; 87015; 87040; 87070; 87077; 87086; 87102; 87116; 87186; 87205; 87206; 87449; 87493; 87804; 89051; 90732; 93005; 93306; 94002; 94003; 94150; 94620; 94640; 94664; 94799; 95819; 96374; 96375; C9113; J0360; J0456; J0610; J0692; J1170; J1205; J1325; J1650; J1815; J1940; J1956; J2020; J2250; J2270; J2405; J2543; J2765; J2920; J2930; J3010; J3370; J7030; J7040; J7050; J7512; J7613; P9612; Q0163

== ENCOUNTER 2017-03-21 10:11 | Inpatient (IN) | payer SELFPAY ==
[~2017-03-21] VITALS: Ht 177.8 cm; Wt 92.5 kg
[2017-03-21] VITALS (7 sets, daily range): BP systolic 119–161; BP diastolic 71–91; PULSE 88–110; RESP 16–21; TEMP 98.5–98.8; O2SAT 97–98
[~2017-03-21 10:11] MED LIST changes: +AMLO10TA2 PO; +ATOR1TAB18 PO; +AZIT500T2 PO; -BUPR150T3 PO; +DEXI60CA PO; +HYDR-3288 PO; +HYDR50TA15 PO; -KAPIDEX PO; +LACT PO; +MECL-62 PO; +METO25TA3 PO; +PANT40TA3 PO; +PRED5TAB PO; -SERT50 PO; +VENTAER INH
[2017-03-21] MEDS ORDERED: SODIUM CHLOR 0.9% 1000 ML INJ 1,000 ML IV ONE ×3 (10:36)
[2017-03-21] MEDS ORDERED: ENAL10TA PO (10:41)
[2017-03-21] MEDS ORDERED: GABA100C4 PO (10:41)
[2017-03-21] MEDS ORDERED: AUGM875T3 PO (10:41)
[2017-03-21] MEDS ORDERED: OMEP20TA PO (10:41)
--- NOTE | 2017-03-21 10:55 | RADRPT ---
EXAM DATE/TIME: 03/21/2017 10:46 [facility] COMPARISON: CHEST SINGLE AP, July 30, 2016, 8:57. INDICATIONS : Fever, chills. MEDICAL HISTORY : Chronic obstructive pulmonary disease. SURGICAL HISTORY : None. ENCOUNTER: Initial ACUITY: 4 - 6 days PAIN SCORE: 0/10 LOCATION: Bilateral chest FINDINGS: A single view of the chest demonstrates the lungs to be symmetrically aerated without evidence of mas s, infiltrate or effusion. The cardiomediastinal contours are unremarkable. Osseous structures are intact. CONCLUSION: No acute disease. Patel Torres MD on March 21, 2017 at 10:53 Board Certified Radiologist. This report was verified electronically.
[2017-03-21 11:10] LABS: AUTOMATED NEUTROPHIL # 16.1 TH/MM3 (1.8-7.7); BASOPHIL # 0.2 TH/MM3 (0-0.2); EOSINOPHIL % 0.2 % (0.0-4.0); HEMATOCRIT 32.5 % (39.0-51.0); HEMO FLAGS DIFF FINAL; LYMPH % 4.9 % (9.0-44.0); LYMPHOCYTE # 0.9 TH/MM3 (1.0-4.8); MEAN CELL VOLUME 92.4 FL (80.0-100.0); MEAN CORPUSCULAR HEMOGLOBIN 31.5 PG (27.0-34.0); MEAN CORPUSCULAR HGB CONC 34.1 % (32.0-36.0); MONO % 9.2 % (0.0-8.0); NEUT % 84.7 % (16.0-70.0); PLATELET COUNT 360 TH/MM3 (150-450); RED BLOOD COUNT 3.52 MIL/MM3 (4.50-5.90); RED CELL DISTRIBUTION WIDTH 13.3 % (11.6-17.2); WHITE BLOOD COUNT 18.9 TH/MM3 (4.0-11.0)
[2017-03-21 11:11] LABS: CHLORIDE 104 MEQ/L (98-107); POTASSIUM 3.5 MEQ/L (3.5-5.1); SODIUM (NA) 135 MEQ/L (136-145)
[2017-03-21 11:15] LABS: ANION GAP 11 MEQ/L (5-15); BICARBONATE 20.3 MEQ/L (21.0-32.0); BLOOD UREA NITROGEN 18 MG/DL (7-18)
[2017-03-21] MEDS ORDERED: VANCOMYCIN INJ 1,350 MG in SODIUM CHLORID 0.9% 500 ML INJ 500 ML IV ONE (11:15)
[2017-03-21] MEDS ORDERED: CEFEPIME INJ 2,000 MG in SODIUM CHLORIDE 0.9% INJ 100 ML IV ONE (11:15)
--- NOTE | 2017-03-21 11:15 | PD ---
HPI Chief Complaint: Fever Time Seen by Provider: 10:20 Travel History International Travel<30 days: No Contact w/Intl Traveler<30days: No Traveled to known affect area: No History of Present Illness HPI This is a 53-year-old male who has a history of kidney stones and Legionella pneumonia who presents to the emergency department with fever, chills and myalgias that have been going on for 5 days. He says on Sunday evening he started to feel shaky and he started to feel pain in all his muscles, constant, severe. He said that evening he had a temperature of 102. Throughout the week and he says he's had persistent fevers and chills. He also has some pain in his left upper abdomen and noticed a rash on his left side. 2 weeks ago the patient had a procedure where kidney stone was removed in the left a stent in place. He said for about a week he had a lot of persistent pain but that has subsequently resolved. He did have a very complicated long admission in June for Legionella pneumonia during which he was intubated for ARDS. Patient saw his primary care physician today and when he was in the office his blood pressure was only in the 90s systolic which concerned her and prompted her to refer him to the emergency department. PFSH Past Medical History Arthritis: No Asthma: No Autoimmune Disease: No Blood Disorders: No Anxiety: No Depression: No Heart Rhythm Problems: No Cancer: No Cardiovascular Problems: Yes High Cholesterol: No Chemotherapy: No Chest Pain: No Congestive Heart Failure: No COPD: Yes Cerebrovascular Accident: No Diabetes: No Diminished Hearing: No Diverticulitis: Yes Endocrine: No Gastrointestinal Disorders: Yes (DIVERTICULITIS) GERD: Yes Glaucoma: No Genitourinary: Yes (CURRENT COLOVESICLE FISTULA) Headaches: No Hepatitis: No Hiatal Hernia: No Hypertension: Yes Immune Disorder: No Implanted Vascular Access Dvce: No Kidney Stones: Yes Musculoskeletal: Yes Neurologic: No Psychiatric: Yes Reproductive: No Respiratory: Yes Myocardial Infarction: No Radiation Therapy: No Renal Failure: No Seizures: No Sickle Cell Disease: No Sleep Apnea: No Thyroid Disease: No Ulcer: No Past Surgical History Abdominal Surgery: Yes (HERNIA REPAIR, COLON RESECTION, ) AICD: No Cardiac Surgery: No Ear Surgery: No Endocrine Surgery: No Eye Surgery: No Genitourinary Surgery: Yes (PER PT "PART OF MY BLADDER WAS PARTIAL REMOVED") Gynecologic Surgery: No Insulin Pump: No Neurologic Surgery: No Oral Surgery: No Pacemaker: No Thoracic Surgery: No Other Surgery: Yes (SINUS SX) Social History Alcohol Use: Yes (2-3 drinks per day) Tobacco Use: No (QUIT 07/04) Substance Use: No Allergies-Medications (Allergen,Severity, Reaction): Coded Allergies: Sulfa (Sulfonamide Antibiotics) (Unverified Allergy, Severe, HIVES, ) shellfish derived (Unverified Allergy, Severe, HIVES, SWELLING, 01/30/17) *MDRO Multi-Drug Resistant Organism (Verified Adverse Reaction, Unknown, MRSA, 07/10/16) Hx MRSA per 07/08/16 Consultation Reported Meds & Prescriptions Reported Meds & Active Scripts Active Reported Gabapentin 100 Mg Cap 100 Mg PO HS Augmentin (Amoxicillin-Clavulanate) 875-125 Mg Tab 1 Tab PO BID Enalapril (Enalapril Maleate) 10 Mg Tab 10 Mg PO DAILY Omeprazole 20 Mg Tab 20 Mg PO DAILY Amlodipine (Amlodipine Besylate) 10 Mg Tab 10 Mg PO DAILY Atorvastatin (Atorvastatin Calcium) 80 Mg Tab 80 Mg PO HS Defiance (Hydrocodone-Acetaminophen) 7.5-325 mg Tab 1-2 Tab PO Q6H PRN Ventolin Hfa 18 GM Inh (Albuterol Sulfate) 90 Mcg/Act Aer 1-2 Puff INH Q4-6H PRN Review of Systems Except as stated in HPI: all other systems reviewed are Neg Physical Exam Narrative GENERAL: Diaphoretic, unwell-appearing SKIN: Erythematous vesicular rash on the left upper abdomen that ends of the midline HEAD: Atraumatic. Normocephalic. EYES: Pupils equal and round. No injection or drainage. ENT: Moist mucous membranes NECK: Trachea midline. CARDIOVASCULAR: Tachycardic 3/6 systolic murmur in the left lower sternal border , pt was told about this in January RESPIRATORY: Clear to auscultation. Breath sounds equal bilaterally. GASTROINTESTINAL: Abdomen soft, non-tender, nondistended. MUSCULOSKELETAL: No obvious deformities. NEUROLOGICAL: Awake and alert. No obvious cranial nerve deficits. Moving all extremities. PSYCHIATRIC: Appropriate mood and affect; insight and judgment normal. Data Data Last Documented VS Vital Signs Date Time Temp Pulse Resp B/P (MAP) Pulse Ox O2 Delivery O2 Flow Rate FiO2 03/21/17 13:01 98.6 88 16 119/73 (88) 97 03/21/17 10:45 Room Air Orders Orders Electrocardiogram (03/21/17 10:36) Complete Blood Count With Diff (03/21/17 10:36) Comprehensive Metabolic Panel (03/21/17 10:36) Lactic Acid Sepsis Protocol (03/21/17 10:36) Urinalysis - C+S If Indicated (03/21/17 10:36) Blood Culture (03/21/17 10:36) Chest, Single Ap (03/21/17 10:36) Blood Glucose (03/21/17 10:36) Ecg Monitoring (03/21/17 10:36) Iv Access Insert/Monitor (03/21/17 10:36) Oximetry (03/21/17 10:36) Oxygen Administration (03/21/17 10:36) Sodium Chlor 0.9% 1000 Ml Inj (Ns 1000 M (03/21/17 10:36) Sodium Chlor 0.9% 1000 Ml Inj (Ns 1000 M (03/21/17 10:36) Sodium Chlor 0.9% 1000 Ml Inj (Ns 1000 M (03/21/17 10:36) Vancomycin Inj (Vancomycin Inj) (03/21/17 11:15) Cefepime Inj (Maxipime Inj) (03/21/17 11:15) Cath For Specimen (03/21/17 11:36) Morphine Inj (Morphine Inj) (03/21/17 12:15) Ct Abd/Pel W/O Iv Contrast (03/21/17 ) Urine Culture (03/21/17 12:12) Admit Order (Ed Use Only) (03/21/17 13:10) Labs Laboratory Tests Test 03/21/17 10:51 03/21/17 12:12 White Blood Count 18.9 TH/MM3 Red Blood Count 3.52 MIL/MM3 Hemoglobin 11.1 GM/DL Hematocrit 32.5 % Mean Corpuscular Volume 92.4 FL Mean Corpuscular Hemoglobin 31.5 PG Mean Corpuscular Hemoglobin Concent 34.1 % Red Cell Distribution Width 13.3 % Platelet Count 360 TH/MM3 Mean Platelet Volume 8.2 FL Neutrophils (%) (Auto) 84.7 % Lymphocytes (%) (Auto) 4.9 % Monocytes (%) (Auto) 9.2 % Eosinophils (%) (Auto) 0.2 % Basophils (%) (Auto) 1.0 % Neutrophils # (Auto) 16.1 TH/MM3 Lymphocytes # (Auto) 0.9 TH/MM3 Monocytes # (Auto) 1.7 TH/MM3 Eosinophils # (Auto) 0.0 TH/MM3 Basophils # (Auto) 0.2 TH/MM3 CBC Comment DIFF FINAL Differential Comment Blood Urea Nitrogen 18 MG/DL Creatinine 1.60 MG/DL Random Glucose 125 MG/DL Total Protein 8.1 GM/DL Albumin 2.9 GM/DL Calcium Level 9.1 MG/DL Alkaline Phosphatase 81 U/L Aspartate Amino Transf (AST/SGOT) 9 U/L Alanine Aminotransferase (ALT/SGPT) 18 U/L Total Bilirubin 0.4 MG/DL Sodium Level 135 MEQ/L Potassium Level 3.5 MEQ/L Chloride Level 104 MEQ/L Carbon Dioxide Level 20.3 MEQ/L Anion Gap 11 MEQ/L Estimat Glomerular Filtration Rate 45 ML/MIN Lactic Acid Level 1.2 mmol/L Urine Collection Type CATH Urine Color YELLOW Urine Turbidity CLEAR Urine pH 6.0 Urine Specific Guy 1.010 Urine Protein 30 mg/dL Urine Glucose (UA) NEG mg/dL Urine Ketones NEG mg/dL Urine Occult Blood MOD Urine Nitrite NEG Urine Bilirubin NEG Urine Leukocyte Esterase MOD Urine RBC 10-14 /hpf Urine WBC 25-49 /hpf Microscopic Urinalysis Comment CULTURE INDICATED MDM Medical Decision Making Medical Screen Exam Complete: Yes Emergency Medical Condition: Yes Interpretation(s) Afebrile, tachycardia, normotensive Leukocytosis Anemia 85% neutrophils Renal insufficiency Lactic acid is 1.2 Urinalysis: Urinary tract infection Chest x-ray: No acute process CT abdomen and pelvis: Left ureteral stent in place with no hydronephrosis Differential Diagnosis Urinary tract infection, pyelonephritis, pneumonia, bacteremia, sepsis Narrative Course This is a 56-year-old male who presents to the emergency department with fevers and chills for 5 days. He is tachycardic on arrival. He was reportedly hypotensive and is primary care physician's office. Here in the emergency department he was placed on a monitor and an IV was established. Labs demonstrate a leukocytosis with 85% neutrophils. He has some renal insufficiency. Urinalysis demonstrates urinary tract infection. CT abdomen and pelvis was obtained to exclude hydronephrosis which was reassuring. Patient was given broad-spectrum antibiotics up front and 2 L of IV fluid in the setting of sepsis. He will be admitted for continued antibiotic therapy due to likely urinary tract infection and early pyelonephritis. He also has a rash on his left upper abdomen which I suspect is early shingles. Physician Communication Physician Communication Discussed with Dr. Frank Diagnosis Primary Impression: Pyelonephritis Marie Barrett MD Mar 21, 2017 11:15
[2017-03-21 11:18] LABS: ALT (GPT) 18 U/L (12-78); AST (GOT) 9 U/L (15-37); GLOMERULAR FILTRATION RATE 45 ML/MIN (>89)
[2017-03-21 11:19] LABS: TOTAL BILIRUBIN ADULT 0.4 MG/DL (0.2-1.0)
[2017-03-21 11:21] LABS: ALKALINE PHOSPHATASE 81 U/L (45-117)
[2017-03-21] MEDS ORDERED: MORPHINE SULFATE 4 MG/ML INJ IV PUSH ONE (12:15)
[2017-03-21 12:26] LABS: BLOOD, URINE MOD (NEG); GLUCOSE,URINE NEG (NEG); KETONE, URINE NEG (NEG); NITRITE,URINE NEG (NEG)
[2017-03-21 12:28] LABS: METHOD OF COLLECTION CATH; URINE COLOR YELLOW (YELLW/STRAW)
[2017-03-21 12:30] LABS: COMMENT (UR) CULTURE INDICATED; CULTURE IF INDICATED CULTURE INDICATED
--- NOTE | 2017-03-21 12:34 | RADRPT ---
EXAM DATE/TIME: 03/21/2017 12:18 [facility] COMPARISON: No previous studies available for comparison. INDICATIONS : Left flank pain. Fever and lethargic. ORAL CONTRAST: No oral contrast ingested. RADIATION DOSE: 22.91 CTDIvol (mGy) ; Patient body habitus MEDICAL HISTORY : Renal calculi. Chronic obstructive pulmonary disease. Gastroesophageal reflux disease.Hypertension. Diverticulitis. SURGICAL HISTORY : Colon resection. Left renal stent. ENCOUNTER: Initial ACUITY: 4 - 6 days PAIN SCALE: 8/10 LOCATION: Left flank TECHNIQUE: Volumetric scanning of the abdomen and pelvis was performed. Using automated exposure control and ad justment of the mA and/or kV according to patient size, radiation dose was kept as low as reasonably achievable to obtain optimal diagnostic quality images. DICOM format image data is available electro nically for review and comparison. FINDINGS: LOWER LUNGS: The visualized lower lungs are clear. LIVER: Visualized portions are unremarkable. SPLEEN: Normal size without lesion. PANCREAS: Within normal limits. KIDNEYS: There a small renal stones bilaterally including tiny upper and lower pole collecting system stones o n the right without evidence of hydronephrosis. On the left, a double-J ureteral stent is is in good position. There are tiny stones in the mid and lower pole collecting system on the left side. There i s a small exophytic cyst arising from the posterior lateral midpole cortex of the right kidney. No negro spicious mass. ADRENAL GLANDS: Within normal limits. VASCULAR: Dense atherosclerotic vascular calcifications. No evidence of aneurysm. BOWEL/MESENTERY: The stomach, small bowel, and colon demonstrate no acute abnormality. There is no free intraperitone al air or fluid. ABDOMINAL WALL: Within normal limits. RETROPERITONEUM: There is no lymphadenopathy. BLADDER: No wall thickening or mass. REPRODUCTIVE: Within normal limits. INGUINAL: There is no lymphadenopathy or hernia. MUSCULOSKELETAL: Within normal limits for patient age. CONCLUSION: Small bilateral renal stones. Left ureteral stent in good position without evidence of hydronephrosis . Patel Torres MD on March 21, 2017 at 12:27 Board Certified Radiologist. This report was verified electronically.
[2017-03-21] MEDS ORDERED: SODIUM CHLORIDE 0.9% FLUSH 10 ML FLUSH IV FLUSH PRN (13:15)
[2017-03-21] MEDS ORDERED: NALOXONE HCL 0.4 MG/ML AMP IV PUSH PRN (13:15)
--- NOTE | 2017-03-21 13:56 | EKG ---
Date Performed: 03/21/2017 Time Performed: 10:54:53 PTAGE: 56 years EKG: Sinus rhythm NORMAL ECG PREVIOUS TRACING : 07/31/2016 13.54 DOCTOR: Pio Guerra Interpretating Date/Time 03/21/2017 13:56:12
[2017-03-21] MEDS ORDERED: LORazepam 2 MG/ML VIAL IV PUSH PRN ×4 (16:30)
[2017-03-21] MEDS ORDERED: LORazepam 2 MG TAB PO PRN (16:30)
[2017-03-21] MEDS ORDERED: LORazepam 1 MG TAB PO PRN (16:30)
[2017-03-21] MEDS ORDERED: FLUMAZENIL 0.5 MG/5 ML VIAL IV PUSH PRN (16:30)
[2017-03-21] MEDS ORDERED: RESP: ALBUTEROL 2.5 MG/IPRATROPIUM 0.5 MG NEB (PRN) NEB (16:30)
--- NOTE | 2017-03-21 16:31 | HHI.HP ---
HPI Service [facility] Primary Care Physician Abigail Chau MD Admission Diagnosis pyelonephritis Diagnoses: Chief Complaint: Chills and fever Travel History International Travel<30 Days: No Contact w/Intl Traveler <30 Da: No Traveled to Known Affected Are: No Sepsis Criteria SIRS Criteria (2 or more): Heart rate over 90, WBC > 19280, < 4000 or > 10% bands Criteria Outcome: Meets sepsis criteria History of Present Illness Patient is a 56-year-old gentleman with a history of kidney stones and ureteral stents who came to the hospital complaining of hypotension, fever of 101, tachycardia. This is been going on for about 2 days. He saw his primary care doctor today and was sent to the hospital. Patient says that on the he had a checkup from recent stent exchange on the left ureteral tract. He felt some chills and went home and had temp to 101.1 with body aches and low blood pressure. Says systolic blood pressure was in the 90s. He drinks lots of fluid and called his daughter. He called his urologist and was given Augmentin he took 2 pills and went to see his primary doctor today. She sent him urgently to the hospital. Here he was normotensive although he had not taken his blood pressure pill and 3 days. He has not been afebrile but does have quite a bit of leukocytosis and evidence of urinary tract infection. The patient has been admitted to the hospital for the same Review of Systems Constitutional: COMPLAINS OF: Chills, DENIES: Diaphoretic episodes, Fatigue, Fever, Weight gain, Weight loss, Dizziness, Change in appetite, Night Sweats Endocrine: DENIES: Heat/cold intolerance, Polydipsia, Polyuria, Polyphagia Eyes: DENIES: Blurred vision, Diplopia, Eye inflammation, Eye pain, Vision loss , Photosensitivity, Double Vision Ears, nose, mouth, throat: DENIES: Tinnitus, Hearing loss, Vertigo, Nasal discharge, Oral lesions, Throat pain, Hoarseness, Ear Pain, Running Nose, Epistaxis, Sinus Pain, Toothache, Odynophagia Respiratory: DENIES: Apneas, Cough, Snoring, Wheezing, Hemoptysis, Sputum production, Shortness of breath Cardiovascular: DENIES: Chest pain, Palpitations, Syncope, Dyspnea on Exertion , PND, Lower Extremity Edema, Orthopnea, Claudication Gastrointestinal: DENIES: Abdominal pain, Black stools, Bloody stools, Constipation, Diarrhea, Nausea, Vomiting, Difficulty Swallowing, Anorexia Musculoskeletal: DENIES: Joint pain, Muscle aches, Stiffness, Joint Swelling, Back pain, Neck pain Integumentary: DENIES: Abnormal pigmentation, Nail changes, Pruritus, Rash Hematologic/lymphatic: DENIES: Bruising, Lymphadenopathy Immunologic/allergic: DENIES: Eczema, Urticaria Neurologic: COMPLAINS OF: Paresthesias (left foot), DENIES: Abnormal gait, Headache, Localized weakness, Seizures, Speech Problems, Tremor, Poor Balance Psychiatric: DENIES: Anxiety, Confusion, Mood changes, Depression, Hallucinations, Agitation, Suicidal Ideation, Homicidal Ideation, Delusions Except as stated in HPI: all other systems reviewed are Neg Past Family Social History Past Medical History Kidney stones Hypertension Neuropathy COPD Past Surgical History Ureteral stent placement with extraction of the right and replacement of the left Reported Medications Reviewed in the EMR, recently given Augmentin Allergies: Coded Allergies: Sulfa (Sulfonamide Antibiotics) (Unverified Allergy, Severe, HIVES, ) shellfish derived (Unverified Allergy, Severe, HIVES, SWELLING, 01/30/17) *MDRO Multi-Drug Resistant Organism (Verified Adverse Reaction, Unknown, MRSA, 07/10/16) Hx MRSA per 07/08/16 Consultation Active Ordered Medications Reviewed in the EMR Family History Hypertension Social History Vodka daily No tobacco Lives alone Physical Exam Vital Signs Vital Signs Date Time Temp Pulse Resp B/P (MAP) Pulse Ox O2 Delivery O2 Flow Rate FiO2 03/21/17 15:54 98.8 03/21/17 15:24 03/21/17 15:24 89 18 140/76 (97) 98 Room Air 03/21/17 13:01 98.6 88 16 119/73 (88) 97 03/21/17 10:45 97 Room Air 03/21/17 10:38 97 Room Air 03/21/17 10:31 98.6 110 20 119/71 (87) 97 Physical Exam GENERAL: This is a well-nourished, well-developed patient, in no apparent distress. SKIN: Mottled around previous bruises in the flank left worse than right post procedural. I do not appreciate any herpetiform rash HEAD: Atraumatic. Normocephalic. No temporal or scalp tenderness. EYES: Pupils equal round and reactive. Extraocular motions intact. No scleral icterus. No injection or drainage. ENT: Nose without bleeding, purulent drainage or septal hematoma. Throat without erythema, tonsillar hypertrophy or exudate. Uvula midline. Airway patent. NECK: Trachea midline. No JVD or lymphadenopathy. Supple, nontender, no meningeal signs. CARDIOVASCULAR: Regular rate and rhythm without murmurs, gallops, or rubs. RESPIRATORY: Clear to auscultation. Breath sounds equal bilaterally. No wheezes , rales, or rhonchi. GASTROINTESTINAL: Abdomen soft, non-tender, nondistended. No hepato-splenomegaly , or palpable masses. No guarding. MUSCULOSKELETAL: Extremities without clubbing, cyanosis, or edema. No joint tenderness, effusion, or edema noted. No calf tenderness. Negative Homans sign bilaterally. NEUROLOGICAL: Awake and alert. Cranial nerves II through XII intact. Motor and sensory grossly within normal limits. Five out of 5 muscle strength in all muscle groups. Normal speech. Laboratory Laboratory Tests Test 03/21/17 10:51 03/21/17 12:12 White Blood Count 18.9 Red Blood Count 3.52 Hemoglobin 11.1 Hematocrit 32.5 Mean Corpuscular Volume 92.4 Mean Corpuscular Hemoglobin 31.5 Mean Corpuscular Hemoglobin Concent 34.1 Red Cell Distribution Width 13.3 Platelet Count 360 Mean Platelet Volume 8.2 Neutrophils (%) (Auto) 84.7 Lymphocytes (%) (Auto) 4.9 Monocytes (%) (Auto) 9.2 Eosinophils (%) (Auto) 0.2 Basophils (%) (Auto) 1.0 Neutrophils # (Auto) 16.1 Lymphocytes # (Auto) 0.9 Monocytes # (Auto) 1.7 Eosinophils # (Auto) 0.0 Basophils # (Auto) 0.2 CBC Comment DIFF FINAL Differential Comment Blood Urea Nitrogen 18 Creatinine 1.60 Random Glucose 125 Total Protein 8.1 Albumin 2.9 Calcium Level 9.1 Alkaline Phosphatase 81 Aspartate Amino Transf (AST/SGOT) 9 Alanine Aminotransferase (ALT/SGPT) 18 Total Bilirubin 0.4 Sodium Level 135 Potassium Level 3.5 Chloride Level 104 Carbon Dioxide Level 20.3 Anion Gap 11 Estimat Glomerular Filtration Rate 45 Lactic Acid Level 1.2 Urine Collection Type CATH Urine Color YELLOW Urine Turbidity CLEAR Urine pH 6.0 Urine Specific [place] 1.010 Urine Protein 30 Urine Glucose (UA) NEG Urine Ketones NEG Urine Occult Blood MOD Urine Nitrite NEG Urine Bilirubin NEG Urine Leukocyte Esterase MOD Urine RBC 10-14 Urine WBC 25-49 Microscopic Urinalysis Comment CULTURE INDICATED Date/Time Source Procedure Growth Status 03/21/17 10:52 Blood Peripheral Aerobic Blood Culture Pending Received 03/21/17 10:52 Blood Peripheral Anaerobic Blood Culture Pending Received 03/21/17 12:12 Urine Catheterized Urine Urine Culture Pending Received Result Diagram: 03/21/17 1051 03/21/17 1051 Imaging Last Impressions Chest X-Ray 03/21/17 1036 Signed Impressions: Service Date/Time: Tuesday, March 21, 2017 10:46 - CONCLUSION: No acute disease. Patel Torres MD Abdomen/Pelvis CT 03/21/17 0000 Signed Impressions: Service Date/Time: Tuesday, March 21, 2017 12:18 - CONCLUSION: Small bilateral renal stones. Left ureteral stent in good position without evidence of hydronephrosis. Patel Torres MD Septic Shock Reassessment Heart: Other (tachycardia) Lungs: Clear Skin: Warm Capillary Refill: Brisk Caprini VTE Risk Assessment Caprini VTE Risk Assessment: Mod/High Risk (score >= 2) Caprini Risk Assessment Model Point Value = 1 Point Value = 2 Point Value = 3 Point Value = 5 Age 41-60 Minor surgery BMI > 25 kg/m2 Swollen legs Varicose veins or History of unexplained or recurrent spontaneous Oral contraceptives or hormone replacement Sepsis (< 1 month) Serious lung disease, including pneumonia (< 1 month) Abnormal pulmonary function Acute myocardial infarction Congestive heart failure (< 1 month) History of inflammatory bowel disease Medical patient at bed rest Age 61-74 Arthroscopic surgery Major open surgery (> 45 min) Laparoscopic surgery (> 45 min) Malignancy Confined to bed (> 72 hours) Immobilizing plaster cast Central venous access Age >= 75 History of VTE Family history of VTE Factor V Leiden Prothrombin [id number] Lupus anticoagulant Anticardiolipin antibodies Elevated serum homocysteine Heparin-induced thrombocytopenia Other congenital or acquired thrombophilia Stroke (< 1 month) Elective arthroplasty Hip, pelvis, or leg fracture Acute spinal cord injury (< 1 month) Prophylaxis Regimen Total Risk Factor Score Risk Level Prophylaxis Regimen 0-1 Low Early ambulation 2 Moderate Order ONE of the following: *Sequential Compression Device (SCD) *Heparin 5000 units SQ BID 3-4 Higher Order ONE of the following medications: *Heparin 5000 units SQ TID *Enoxaparin/Lovenox 40 mg SQ daily (WT < 150 kg, CrCl > 30 mL/min) *Enoxaparin/Lovenox 30 mg SQ daily (WT < 150 kg, CrCl > 10-29 mL/min) *Enoxaparin/Lovenox 30 mg SQ BID (WT < 150 kg, CrCl > 30 mL/min) AND/OR *Sequential Compression Device (SCD) 5 or more Highest Order ONE of the following medications: *Heparin 5000 units SQ TID (Preferred with Epidurals) *Enoxaparin/Lovenox 40 mg SQ daily (WT < 150 kg, CrCl > 30 mL/min) *Enoxaparin/Lovenox 30 mg SQ daily (WT < 150 kg, CrCl > 10-29 mL/min) *Enoxaparin/Lovenox 30 mg SQ BID (WT < 150 kg, CrCl > 30 mL/min) AND *Sequential Compression Device (SCD) Assessment and Plan Problem List: (1) Sepsis ICD Code: A41.9 - Sepsis, unspecified organism Status: Resolved Plan: Likely due to urinary tract infection Patient with tachycardia, leukocytosis Follow blood cultures (2) Urinary tract infection ICD Code: N39.0 - Urinary tract infection, site not specified Status: Acute Plan: Continue empiric vancomycin and cefepime, follow cultures for, get a UTI Urological follow-up pending Continue IV morphine for pain (3) HTN (hypertension) ICD Code: I10 - Essential (primary) hypertension Plan: Resume home enalapril and amlodipine Follow (4) COPD (chronic obstructive pulmonary disease) ICD Code: J44.9 - Chronic obstructive pulmonary disease, unspecified Status: Acute Plan: Nebulized Bronchodilators when necessary Code Status full code Discussed Condition With patient, MANAGER RESEARCH MD Physician Certification 2 Midnight Certification Type: Admission for Inpatient Services Order for Inpatient Services The services are ordered in accordance with Medicare regulations or non- Medicare payer requirements, as applicable. In the case of services not specified as inpatient-only, they are appropriately provided as inpatient services in accordance with the 2-midnight benchmark. Estimated LOS (days): 3 3 days is the estimated time the patient will need to remain in the hospital, assuming treatment plan goals are met and no additional complications. Post-Hospital Plan: Andie Abbott MD Mar 21, 2017 16:31
[2017-03-21] MEDS: ONDANSETRON HCL 4 MG/2 ML VIAL IVP PRN (16:35)
[2017-03-21] MEDS: MORPHINE SULFATE 2 MG/ML INJ IV PUSH PRN ×2 (16:35→20:46)
[2017-03-21] MEDS ORDERED: ENOXAPARIN SODIUM 40 MG/0.4 ML SYRINGE SQ SCH (17:00)
[2017-03-21] MEDS: SODIUM CHLORIDE 0.9% FLUSH 10 ML FLUSH IV FLUSH SCH (20:49)
[2017-03-22] VITALS: BP 124/79; PULSE 97; RESP 18; TEMP 100.9; O2SAT 96
[2017-03-22] MEDS: ONDANSETRON HCL 4 MG/2 ML VIAL IVP PRN ×3 (00:42→21:38)
[2017-03-22] MEDS: MORPHINE SULFATE 2 MG/ML INJ IV PUSH PRN ×6 (00:43→21:37)
[2017-03-22 05:25] LABS: BASOPHIL # 0.1 TH/MM3 (0-0.2); BASOPHIL % 0.4 % (0.0-2.0); EOSINOPHIL # 0.2 TH/MM3 (0-0.4); EOSINOPHIL % 1.1 % (0.0-4.0); HEMATOCRIT 30.1 % (39.0-51.0); HEMO FLAGS DIFF FINAL; LYMPHOCYTE # 1.8 TH/MM3 (1.0-4.8); MEAN CELL VOLUME 93.7 FL (80.0-100.0); MONO % 11.1 % (0.0-8.0); NEUT % 76.4 % (16.0-70.0); PLATELET COUNT 366 TH/MM3 (150-450); RED BLOOD COUNT 3.22 MIL/MM3 (4.50-5.90); RED CELL DISTRIBUTION WIDTH 13.2 % (11.6-17.2); WHITE BLOOD COUNT 15.9 TH/MM3 (4.0-11.0)
[2017-03-22 05:35] LABS: POTASSIUM 3.5 MEQ/L (3.5-5.1)
[2017-03-22 05:41] LABS: BICARBONATE 23.2 MEQ/L (21.0-32.0)
[2017-03-22 08:00] VITALS: BP 134/81; PULSE 102; RESP 20; TEMP 98.8; O2SAT 97
[2017-03-22] MEDS: SODIUM CHLORIDE 0.9% FLUSH 10 ML FLUSH IV FLUSH SCH ×2 (08:42→20:26)
[2017-03-22 12:00] VITALS: BP 143/84; PULSE 98; RESP 19; TEMP 97.9; O2SAT 96
--- NOTE | 2017-03-22 12:00 | HHI.PR ---
Subjective Remarks Patient seen and evaluated today in follow-up for, continue UTI and sepsis. Doing better today. No chills, heart rate still a bit elevated at 102 MAXIMUM TEMPERATURE 100.9. Clinically appears improved. Urological consult appreciated. Patient for stent removal today. Care plan discussed with patient and family at bedside Objective Vitals Vital Signs Date Time Temp Pulse Resp B/P (MAP) Pulse Ox O2 Delivery O2 Flow Rate FiO2 03/22/17 08:56 17 03/22/17 08:00 98.8 102 20 134/81 (98) 97 03/22/17 00:00 100.9 97 18 124/79 (94) 96 03/21/17 20:00 98.5 102 20 140/81 (100) 98 03/21/17 16:00 98.6 101 21 161/91 (114) 97 03/21/17 15:54 98.8 03/21/17 15:24 03/21/17 15:24 89 18 140/76 (97) 98 Room Air 03/21/17 13:01 98.6 88 16 119/73 (88) 97 I/O 03/21/17 03/21/17 03/21/17 03/22/17 03/22/17 03/22/17 07:00 15:00 23:00 07:00 15:00 23:00 Intake Total 2000.00 ml Balance 2000.00 ml Intake IV Total 2000.00 ml Result Diagram: 03/22/17 0435 03/22/17 0435 Imaging Last Impressions Chest X-Ray 03/21/17 1036 Signed Impressions: Service Date/Time: Tuesday, March 21, 2017 10:46 - CONCLUSION: No acute disease. Patel Torres MD Abdomen/Pelvis CT 03/21/17 0000 Signed Impressions: Service Date/Time: Tuesday, March 21, 2017 12:18 - CONCLUSION: Small bilateral renal stones. Left ureteral stent in good position without evidence of hydronephrosis. Patel Torres MD Objective Remarks GENERAL: This is a well-nourished, well-developed patient, in no apparent distress. CARDIOVASCULAR: Regular rate and rhythm without murmurs, gallops, or rubs. RESPIRATORY: Clear to auscultation. Breath sounds equal bilaterally. No wheezes , rales, or rhonchi. GASTROINTESTINAL: Abdomen soft, non-tender, nondistended. Normal active bowel sounds MUSCULOSKELETAL: Extremities without clubbing, cyanosis, or edema. NEURO: Alert & Oriented x4 to person, place, time, situation. Moves all ext x4 A/P Problem List: (1) Sepsis ICD Code: A41.9 - Sepsis, unspecified organism Status: Resolved Plan: Likely due to urinary tract infection Patient with tachycardia, leukocytosis Follow blood cultures continue rocephin IV stent removal (2) Urinary tract infection ICD Code: N39.0 - Urinary tract infection, site not specified Status: Acute Plan: Continue empiric Rocephin, follow cultures Urological follow-up pending Continue IV morphine for pain (3) HTN (hypertension) ICD Code: I10 - Essential (primary) hypertension Plan: Resume home enalapril and amlodipine Follow BP (4) COPD (chronic obstructive pulmonary disease) ICD Code: J44.9 - Chronic obstructive pulmonary disease, unspecified Status: Acute Plan: Nebulized Bronchodilators when necessary Assessment and Plan hold Lovenox for procedures Andie Frank MD Mar 22, 2017 12:00
[2017-03-22] MEDS ORDERED: cefTRIAXone INJ 1,000 MG in SODIUM CHLORIDE 0.9% INJ 100 ML IV SCH (13:00)
[2017-03-22] MEDS ORDERED: LIDOCAINE HCL 2% JELLY 5 ML SYRINGE ONE (14:13)
--- NOTE | 2017-03-22 15:03 | EKG ---
Date Performed: 03/22/2017 Time Performed: 07:45:05 PTAGE: 56 years EKG: Sinus rhythm NORMAL ECG PREVIOUS TRACING : 03/21/2017 10.54 Compared to prior tracing no significant change DOCTOR: Sergio Rosas Interpretating Date/Time 03/22/2017 15:01:54
--- NOTE | 2017-03-22 15:54 | MB ---
cc: STEPH FARFAN DATE OF CONSULTATION: 03/22/2017 REASON FOR CONSULTATION: This 56-year-old male who has a history of kidney stones and retained left ureteral stenting presented with fever and chills and tachycardia. This had been going on for the past 48 hours and he decided to come to the emergency room. A CT scan was performed the emergency room suggesting pyelonephritis with a retained left ureteral stent and minimal calculi noted in the left kidney. He has had the stent in since February and was placed by Dr. Baron and the patient at the time underwent extracorporeal shock wave lithotripsy. The stent has remained indwelling since this time. OTHER MEDICAL PROBLEMS: His other medical problems include kidney stones. Hypertension. Neuropathy Chronic obstructive pulmonary disease. PAST SURGICAL HISTORY: Ureteral stent placement followed by extracorporeal shock wave lithotripsy. ALLERGIES SULFA MEDICATIONS: For medications please refer to the chart. FAMILY HISTORY: Noted for hypertension. SOCIAL HISTORY: Social history is notable for alcohol usage daily. Denies tobacco, and denies illicit drug use. REVIEW OF SYSTEMS Review of systems noted some left-sided discomfort some fever and chills. Some nausea without vomiting. Denied chest pain and no shortness of breath. No gait disturbances. No bleeding disorders. No neurologic symptoms. No headaches. Denies skin lesions did note no fever with some lethargy the remaining review of systems were reviewed all negative. PHYSICAL EXAMINATION: VITAL SIGNS: His vital signs temperature 91, heart rate 92, respiratory 18, 131/81 blood pressure. IN GENERAL: He is a well-developed, well-nourished 56-year-old male in no acute distress. HEAD, EYES, EARS, NOSE, AND THROAT: Normocephalic, atraumatic. Pupils equal round reactive to light. Extraocular muscles intact. NECK: The neck is supple HEART: The heart is regular rate and rhythm. LUNGS: The lungs are clear. ABDOMEN: The abdomen is soft, nontender, nondistended. Mild and left costovertebral angle tenderness is noted. GENITOURINARY: Normal phallus. Testes are descended. EXTREMITIES: The extremities showed no evidence of clubbing, cyanosis or edema. LABORATORY FINDINGS: The white count today is 15.9, hemoglobin 10.0, hematocrit of 30.1, platelet count 366, sodium 139, potassium 3.5, chloride 107, CO2 23.2, BUN nine, creatinine of 1.2, glucose of 97. Urinalysis shows moderate leukoesterase with 25-49 white cells and 10-14 red cells. Urine culture showed group D enterococcus blood cultures were negative. IMAGING STUDIES: Imaging study demonstrated small bilateral renal stones left ureteral stent in good position without hydronephrosis. ASSESSMENT: Assessment is a 56-year-old male with signs of sepsis with retained ureteral stent in place and suggesting a possible pyelonephritis on the CT scan. PLAN: The plan will be for the patient undergo cystoscopy with left double-J stent removal. Continue IV antibiotics and IV fluids. Thank you for the consult and letting me participate in the care of this patient. Steph Connell /2:41 PM /3:06 PM
[2017-03-22 16:01] VITALS: BP 155/106; PULSE 99; RESP 20; TEMP 98.1; O2SAT 99
[2017-03-22 20:00] VITALS: BP 118/71; PULSE 93; RESP 20; TEMP 98.7; O2SAT 94
--- NOTE | 2017-03-22 23:26 | MP ---
cc: STEPH SPRINGER DATE OF SURGERY 03/22/17 PREOPERATIVE DIAGNOSIS Retained left ureteral stent. POSTOPERATIVE DIAGNOSIS Retained left ureteral stent. PROCEDURE Cystoscopy with removal of left double-J stent. SURGEON MD Gian. ANESTHESIA Local. FLUIDS 200 cc crystalloid. ESTIMATED BLOOD LOSS There is no blood loss. COMPLICATIONS No complications. DISPOSITION He tolerated the procedure well, was transferred to recovery in stable condition. INDICATION Oskar Ambrocio is a 56-year-old male with a retained left ureteral stent after undergoing lithotripsy by Dr. Tod izquierdo in February. He presented with signs of sepsis and possible pyelonephritis. Decision made to bring the patient to the operating room and remove his left double-J stent. The risks and benefits were discussed preoperatively and he is willing to proceed. PROCEDURE IN DETAIL The patient was brought to the operating room, identified by myself as Oskar Ambrocio. He is placed in the dorsal lithotomy position on the operating room stretcher, prepped and draped in usual sterile fashion. He had received preprocedure antibiotics. Flexible cystoscope was inserted in the bladder. Carrillo cystoscopy did not reveal any abnormalities. The stent was identified and using alligator grasper it was removed without difficulty and he tolerated the procedure well. Steph Springer SWT/EO /2:46 PM /11:11 PM
[2017-03-23] VITALS: BP 132/78; PULSE 70; RESP 20; TEMP 98; O2SAT 95
[2017-03-23] MEDS: MORPHINE SULFATE 2 MG/ML INJ IV PUSH PRN ×2 (01:49→05:57)
[2017-03-23 08:00] VITALS: BP 123/76; PULSE 86; RESP 16; TEMP 97.6; O2SAT 95
[2017-03-23] MEDS: SODIUM CHLORIDE 0.9% FLUSH 10 ML FLUSH IV FLUSH SCH (09:07)
--- NOTE | 2017-03-23 10:21 | HHI.DCPOC ---
Discharge Care Plan Diagnosis: (1) Sepsis (2) Urinary tract infection Goals to Promote Your Health * To prevent worsening of your condition and complications * To maintain your health at the optimal level Directions to Meet Your Goals Take your medications as prescribed Follow your dietary instruction Follow activity as directed Keep your appointments as scheduled Take your immunizations and boosters as scheduled If your symptoms worsen call your PCP, if no PCP go to Urgent Care Center or Emergency Room Smoking is Dangerous to Your Health. Avoid second hand smoke Call the 24-hour hour crisis hotline for domestic abuse at Andie Frank MD Mar 23, 2017 10:21
--- NOTE | 2017-03-23 10:24 | HHI.DS ---
Discharge Summary Admission Date Mar 22, 2017 at 11:51 Discharge Date: Mar 23, 2017 Admitting Diagnosis pyelonephritis (1) Sepsis ICD Code: A41.9 - Sepsis, unspecified organism Status: Resolved (2) Urinary tract infection ICD Code: N39.0 - Urinary tract infection, site not specified Status: Acute (3) HTN (hypertension) ICD Code: I10 - Essential (primary) hypertension (4) COPD (chronic obstructive pulmonary disease) ICD Code: J44.9 - Chronic obstructive pulmonary disease, unspecified Status: Acute Procedures Cystoscopy with removal of left double-J stent. Brief History - From Admission Patient is a 56-year-old gentleman with a history of kidney stones and ureteral stents who came to the hospital complaining of hypotension, fever of 101, tachycardia. This is been going on for about 2 days. He saw his primary care doctor today and was sent to the hospital. Patient says that on the he had a checkup from recent stent exchange on the left ureteral tract. He felt some chills and went home and had temp to 101.1 with body aches and low blood pressure. Says systolic blood pressure was in the 90s. He drinks lots of fluid and called his daughter. He called his urologist and was given Augmentin he took 2 pills and went to see his primary doctor today. She sent him urgently to the hospital. Here he was normotensive although he had not taken his blood pressure pill and 3 days. He has not been afebrile but does have quite a bit of leukocytosis and evidence of urinary tract infection. The patient has been admitted to the hospital for the same CBC/BMP: 03/22/17 0435 03/22/17 0435 Significant Findings Laboratory Tests Test 03/21/17 10:51 03/21/17 12:12 03/22/17 04:35 White Blood Count 18.9 TH/MM3 (4.0-11.0) 15.9 TH/MM3 (4.0-11.0) Red Blood Count 3.52 MIL/MM3 (4.50-5.90) 3.22 MIL/MM3 (4.50-5.90) Hemoglobin 11.1 GM/DL (13.0-17.0) 10.0 GM/DL (13.0-17.0) Hematocrit 32.5 % (39.0-51.0) 30.1 % (39.0-51.0) Neutrophils (%) (Auto) 84.7 % (16.0-70.0) 76.4 % (16.0-70.0) Lymphocytes (%) (Auto) 4.9 % (9.0-44.0) Monocytes (%) (Auto) 9.2 % (0.0-8.0) 11.1 % (0.0-8.0) Neutrophils # (Auto) 16.1 TH/MM3 (1.8-7.7) 12.0 TH/MM3 (1.8-7.7) Lymphocytes # (Auto) 0.9 TH/MM3 (1.0-4.8) Monocytes # (Auto) 1.7 TH/MM3 (0-0.9) 1.8 TH/MM3 (0-0.9) Creatinine 1.60 MG/DL (0.60-1.30) Random Glucose 125 MG/DL (74-106) Albumin 2.9 GM/DL (3.4-5.0) Aspartate Amino Transf (AST/SGOT) 9 U/L (15-37) Sodium Level 135 MEQ/L (136-145) Carbon Dioxide Level 20.3 MEQ/L (21.0-32.0) Estimat Glomerular Filtration Rate 45 ML/MIN (>89) 62 ML/MIN (>89) Urine Protein 30 mg/dL (NEG-TRACE) Urine Occult Blood MOD (NEG) Urine Leukocyte Esterase MOD (NEG) Urine RBC 10-14 /hpf (0-3) Urine WBC 25-49 /hpf (0-5) Imaging Last Impressions Chest X-Ray 03/21/17 1036 Signed Impressions: Service Date/Time: Tuesday, March 21, 2017 10:46 - CONCLUSION: No acute disease. Patel Torres MD Abdomen/Pelvis CT 03/21/17 0000 Signed Impressions: Service Date/Time: Tuesday, March 21, 2017 12:18 - CONCLUSION: Small bilateral renal stones. Left ureteral stent in good position without evidence of hydronephrosis. Patel Torres MD PE at Discharge GENERAL: This is a well-nourished, well-developed patient, in no apparent distress. CARDIOVASCULAR: Regular rate and rhythm without murmurs, gallops, or rubs. RESPIRATORY: Clear to auscultation. Breath sounds equal bilaterally. No wheezes , rales, or rhonchi. GASTROINTESTINAL: Abdomen soft, non-tender, nondistended. Normal active bowel sounds MUSCULOSKELETAL: Extremities without clubbing, cyanosis, or edema. NEURO: Alert & Oriented x4 to person, place, time, situation. Moves all ext x4 Pt update on day of discharge Patient better today. I spoke with urology for discharge planning. Discharge plans also discussed with patient and daughter. Questions answered. Patient does confirm he still has his antibiotics which he will complete. Hospital Course Patient is a 56-year-old gentleman with a history of renal stones and recent cystoscopy with stent placement. He did develop signs and symptoms of urinary tract infection with sepsis. Sepsis with severe patient required IV antibiotics. Had urinary cultures positive for group D enterococcus and was treated with antibiotics. The patient also had a stent removal by urology. 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 The patient did well and defervesced with improvement in clinical symptoms of chills and malaise. Pt Condition on Discharge: Good Discharge Disposition: Discharge Home Discharge Time: > 30 minutes Discharge Instructions DIET: Follow Instructions for: Heart Healthy Diet Activities you can perform: Regular-No Restrictions Follow up Referrals: Urology - 1 Week with Jn Baron MD Continued Medications: Albuterol 18 GM Inh (Ventolin Hfa 18 GM Inh) 90 Mcg/Act Aer 1-2 PUFF INH Q4-6H PRN for SHORTNESS OF BREATH, #1 INHALER 0 Refills Amlodipine (Amlodipine) 10 Mg Tab 10 MG PO DAILY for Blood Pressure Management, #30 TAB 0 Refills Amoxicillin-Clavulanate (Augmentin) 875-125 Mg Tab 1 TAB PO BID for Infection, TAB 0 Refills Atorvastatin (Atorvastatin) 80 Mg Tab 80 MG PO HS for Cholesterol Management, #30 TAB 0 Refills Enalapril (Enalapril) 10 Mg Tab 10 MG PO DAILY, #30 TAB 0 Refills Gabapentin (Gabapentin) 100 Mg Cap 100 MG PO HS, #30 CAP 0 Refills Hydrocodone-Acetaminophen ([place]) 7.5-325 mg Tab 1-2 TAB PO Q6H PRN for PAIN, TAB 0 Refills Omeprazole (Omeprazole) 20 Mg Tab 20 MG PO DAILY, #30 TAB 0 Refills Andie Frank MD Mar 23, 2017 10:24
[2017-03-23] MEDS ORDERED: cefTRIAXone INJ 1,000 MG in SODIUM CHLORIDE 0.9% INJ 100 ML IV SCH (11:00)
== END 2017-03-23 12:33 | disposition home or self-care (01) | DRG 872 ==
LOC: PHED 10:11 → PHEDA 13:10 → PH3B 15:20 → OBSVTOIN 03-22 11:51
PROVIDERS: ADMIT Hospitalist; ATTEND Hospitalist
DX: A41.9 Sepsis, unspecified organism (principal); G62.9 Polyneuropathy, unspecified; I10 Essential (primary) hypertension; N39.0 Urinary tract infection, site not specified; J44.9 Chronic obstructive pulmonary disease, unspecified; R65.20 Severe sepsis without septic shock; B95.2 Enterococcus as the cause of diseases classified elsewhere; L30.8 Other specified dermatitis; Z87.442 Personal history of urinary calculi; Z87.891 Personal history of nicotine dependence; Z88.2 Allergy status to sulfonamides
CPT/HCPCS: 71010; 74176; 80048; 80053; 81001; 83605; 85025; 87040; 87077; 87086; 87186; 93005; 96361; 96365; 96366; 96367; 96368; 96375; 96376; G0378; J0692; J0696; J2270; J2405; J3370; J7030; J7040